=== PATIENT | female | born 1965 | race Caucasian/White ===

== ENCOUNTER 2017-10-29 14:47 | Outpatient (RCR) | payer BC, SELFPAY ==
[2017-10-29] MEDS: Normal Saline Flush 10 ML SYR IVP (13:00)
[2017-10-29 13:48] LABS: Abs Immature Grans 0.01 k/cumm (0.0-0.09); Absolute Basophil Count 0.11 k/cumm (0.0-0.2); Absolute Eosinophil Count 0.36 k/cumm (0.0-0.7); Absolute Lymphocyte Count 2.01 k/cumm (1.2-3.4); Absolute Monocyte Count 0.57 k/cumm (0.11-0.7); Absolute Neutrophil Count 4.76 k/cumm (1.2-6.7); Basophils % 1.4; Eosinophils % 4.6; HCT 35.9 % (36.0-46.0); HGB 11.6 g/dL (12.0-15.5); Immature Grans % 0.1; Lymphocytes % 25.7; Mean Corp. HGB Concentration 32.3 g/dL (32.0-36.0); Mean Corpuscular Hemoglobin 28.4 pg (27.0-33.0); Mean Platelet Volume 11.4 fL (8.0-11.0); Monocytes % 7.3; Neutrophils % 60.9; Platelet Count 293 x1000/uL (130-400); RBC 4.08 m/cumm (4.00-5.20); RBC Distribution Width 14.9 % (11.7-14.6); White Blood Cell Count 7.82 k/cumm (4.4-10.8)
[2017-10-29 14:01] LABS: Triglyceride 65 mg/dL (30-150)
[2017-10-29 14:10] LABS: ALT 32 U/L (12-78); AST 22 U/L (15-37); Albumin 2.8 g/dL (3.4-5.0); Alkaline Phosphatase 136 U/L (46-116); Anion Gap 10.3 mmol/L (3-11); BUN 16 mg/dL (7-18); Bilirubin, Total 0.3 mg/dL (0.2-1.0); CO2 24.7 mmol/L (21.0-32.0); CREATININE 0.58 mg/dL (0.55-1.02); Calcium 8.3 mg/dL (8.5-10.1); Chloride 106 mmol/L (98-107); Glucose 91 mg/dL (70-100); PHOSPHORUS 2.5 mg/dL (2.6-4.7); Potassium 3.7 mmol/L (3.5-5.1); Sodium 141 mmol/L (136-145); Total Protein 6.8 g/dL (6.4-8.2)
[2017-10-30 10:00] LABS: Prealbumin 13 mg/dL (20-40)
[2017-10-31 14:46] LABS: Magnesium 2.5 mg/dL (1.8-2.4)
[2017-11-05] MEDS: Normal Saline Flush 10 ML SYR IVP (13:00)
[2017-11-12] MEDS: Normal Saline Flush 10 ML SYR IVP (13:00)
[2017-11-12 13:29] LABS: Abs Immature Grans 0.01 k/cumm (0.0-0.09); Absolute Eosinophil Count 0.36 k/cumm (0.0-0.7); Absolute Monocyte Count 0.49 k/cumm (0.11-0.7); Absolute Neutrophil Count 4.35 k/cumm (1.2-6.7); Basophils % 1.3; Eosinophils % 4.8; HCT 35.5 % (36.0-46.0); HGB 11.4 g/dL (12.0-15.5); Immature Grans % 0.1; Lymphocytes % 29.3; Mean Corp. HGB Concentration 32.1 g/dL (32.0-36.0); Mean Corpuscular Hemoglobin 28.6 pg (27.0-33.0); Mean Corpuscular Volume 89.2 fL (80-95); Mean Platelet Volume 11.4 fL (8.0-11.0); Monocytes % 6.5; Platelet Count 318 x1000/uL (130-400); RBC 3.98 m/cumm (4.00-5.20); White Blood Cell Count 7.51 k/cumm (4.4-10.8)
[2017-11-12 13:54] LABS: ALT 49 U/L (12-78); AST 32 U/L (15-37); Albumin 2.9 g/dL (3.4-5.0); Alkaline Phosphatase 139 U/L (46-116); Anion Gap 12.1 mmol/L (3-11); BUN 23 mg/dL (7-18); Bilirubin, Total 0.4 mg/dL (0.2-1.0); CO2 22.9 mmol/L (21.0-32.0); CREATININE 0.75 mg/dL (0.55-1.02); Calcium 8.3 mg/dL (8.5-10.1); Chloride 106 mmol/L (98-107); Glucose 127 mg/dL (70-100); Magnesium 1.9 mg/dL (1.8-2.4); Potassium 3.7 mmol/L (3.5-5.1); Sodium 141 mmol/L (136-145); Triglyceride 56 mg/dL (30-150)
[2017-11-12 14:03] LABS: PHOSPHORUS 2.9 mg/dL (2.6-4.7)
[2017-11-13 10:28] LABS: Prealbumin 16 mg/dL (20-40)
[2017-11-18] MEDS: Normal Saline Flush 10 ML SYR IVP (13:25)
== END 2017-11-22 ==
LOC: INF 14:47
PROVIDERS: PCP Family Medicine; Visit Provider Surgery
DX: K91.2 Postsurgical malabsorption, not elsewhere classified (principal); Z45.2 Encounter for adjustment and management of vascular access device; Z48.00 Encounter for change or removal of nonsurgical wound dressing
CPT/HCPCS: 36592; 80053; 99211; 83735; 84100; 84134; 84478; 85025

== ENCOUNTER 2017-11-04 19:34 | Emergency (ER) | payer BC, SELFPAY ==
[2017-11-04] VITALS (11 sets, daily range): BP systolic 106–125; BP diastolic 77–98; PULSE 74–96; RESP 4–22; TEMP 36.7; O2SAT 92–95
--- NOTE | 2017-11-04 20:34 | ED.GENADUL ---
Disposition Clinical Impression: Upper respiratory infection, Asthma exacerbation Disposition: HOME Condition: Fair Instructions: Upper Respiratory Infection (ED), Asthma (ED) Additional Instructions: Continue to follow dietary restrictions as previously advised by GI. Continue Imodium as advised by gastroenterology. Use your nebulizer as needed for asthma symptoms. The cultures are pending. Will contact you with any positive results. Please contact your primary care tomorrow to schedule follow-up this week for reevaluation. If you develop fevers, chills, chest pain, difficulty breathing or other new/worsening symptoms please seek care urgently once again. Referrals: Robbie Philippe [Primary Care Provider] - Medical Decision Making - Lab Data Laboratory Tests 11/04/17 11/04/17 11/04/17 21:15 21:15 21:15 WBC 10.78 RBC 4.17 Hgb 12.1 Hct 36.7 MCV 88.0 MCH 29.0 MCHC 33.0 RDW 15.1 H Plt Count 307 MPV 11.3 H Immature Gran % 0.3 Neutrophils % 66.7 Lymphocytes % 21.2 Monocytes % 7.7 Eosinophils % 3.5 Basophils % 0.6 Absolute Neutrophils 7.19 H Absolute Lymphocytes 2.29 Absolute Monocytes 0.83 H Absolute Eosinophils 0.38 Absolute Basophils 0.06 Sodium 142 Potassium 3.6 Chloride 106 Carbon Dioxide 26.2 Anion Gap 9.8 BUN 21 H Creatinine 0.71 Estimated GFR/1.73 m2 >= 60.00 Glucose 85 Calcium 8.7 Magnesium 1.6 L Total Bilirubin 0.3 AST 32 ALT 46 Alkaline Phosphatase 155 H Troponin I < 0.02 NT-Pro-B Natriuret Pep 151 Total Protein 7.4 Albumin 3.2 L Lipase 83 Results reviewed for labs ordered during visit: Yes - Medical Decision Making Patient presents today with chief complaint of fevers, general unwell feeling asthma exacerbation as well as underlying cough. She is questioning she may just have a simple cold. However, as she has been feeling poor, has had subjective fevers with sweats/chills, there was concern for PICC line infection. Will obtain basic laboratory evaluation as well as cultures, 1 of which will be taken from the PICC line. Will also give patient breathing treatment she does have diffuse expiratory wheezing. Plan to obtain chest x-ray to evaluate for possible pneumonia. We will obtain laboratory evaluation including CBC, CMP, troponin, blood cultures. 1 of these blood cultures will be drawn from the PICC line. Patient voiced understanding the plan is agreement. Patient appears nontoxic. Patient is currently afebrile. EKG obtained and reviewed by Dr. Walker. Patient is in normal sinus rhythm with a rate of 79. No acute ischemic changes noted. Patient received a DuoNeb. Lungs are reassessed, no wheezing is appreciated at this time. Feels much improved. Laboratory evaluation without significant abnormality. No leukocytosis. Her alk phos is elevated but this is typical for the patient on historical review. Troponin is normal. EKG was reviewed by Dr. Walker and found to be without abnormality. I discussed these findings with the patient. She continues to be afebrile and appears nontoxic. She is wanting to be discharged home. Chest x-ray is still pending but patient is requesting discharge does not want to have further imaging at this time. We did discuss that we may be missing a pneumonia that may be contributing to her cough and asthma exacerbation. However, patient continues to advise that she does not want to go forward with further imaging at this time. I discussed the case with Dr. Walker. In particular, we discussed risk and benefit of removal of the PICC line given the patient's subjective fevers. At this point, with normal leukocytosis, patient currently being afebrile and nontoxic-appearing he advised against removal of the PICC. He advised watchful waiting. Patient seems very reliable and is able to seek care urgently if she develops new or worsening symptoms. Cultures are currently pending. We will contact her with any positive results. Advised to follow-up with primary care this week. She will contact her primary care tomorrow morning. She will continue with home nebulizer treatments as needed for asthma. We discussed new/worsening symptoms in depth and when to seek care urgently once again. All of her questions and concerns were addressed she is in agreement this plan. History of Present Illness - General Chief complaint: GenMedical Stated complaint: UNKNOWN Time Seen by Provider: 11/04/17 19:54 Source: patient, family, RN notes reviewed Mode of arrival: ambulatory Limitations: no limitations - History of Present Illness Initial comments: Patient is a 52-year-old female with history of short gut syndrome, accompanied by , with chief complaint of diarrhea, chest tightness and fever. She reports that symptoms began last night. Reports overall she is just been feeling unwell. Patient does have history of asthma and has been feeling tight and wheezy. She denies any chest pain. Denies difficulty breathing. Feels that asthma symptoms are fairly minimal. She does endorse a cough. Denies any abdominal pain. Patient did have a large section of intestines resected approximately 1 year ago after patient developed necrotic area. Since that time she has had waxing and waning diarrhea. Reports that she has had multiple episodes of watery diarrhea to be a. She denies any blood in her stool. Patient has a PICC line in place which he uses for nightly TPN. Reports that she had the PICC line changed recently. In total, has been on TPN for the past year. She does report that she lost the cap for her PICC line over the weekend and came off of sleeping. She did contact her chief of planning regarding his symptoms and reports that there was concern for possible PICC line infection. Has noted subjective fevers with alternating sweats and chills. - Related Data Fluticasone/Salmeterol [Advair 250-50 Diskus] 1 puff IN BID 03/04/17 Levothyroxine [Levothroid] 2 tab PO DAILY AM 03/04/17 Loperamide [Imodium] 6 mg PO PRN PRN 11/04/17 Pantoprazole [Protonix] 20 mg PO BID 11/04/17 Prochlorperazine Maleate 1 tab PO DAILY 11/04/17 Allergies Allergy/AdvReac Type Severity Reaction Status Date / Time amoxicillin Allergy Hives Unverified 03/04/17 16:32 adhesive tape AdvReac Skin Rash Unverified 03/04/17 16:32 codeine AdvReac Nausea Unverified 03/04/17 16:32 exenatide [From Byetta] AdvReac Unverified 03/04/17 17:23 morphine AdvReac Nausea Unverified 03/04/17 16:32 Review of Systems Constitutional: see HPI Respiratory: see HPI Cardiovascular: denies: chest pain, palpitations Gastrointestinal: as per HPI Genitourinary: denies: urgency, dysuria, frequency Musculoskeletal: denies: back pain Skin: denies: rash, lesions Past Medical History - Past Medical History asthma, hypertension, hypothryoid, short gut syndrome. Surgical history: other (bowel resection. appendectomy, hernia repair, cholecystectomy, hysterectomy.) - Social History Alcohol use: rarely Drug use: none General Exam - General Limitations: no limitations General appearance: alert, in no apparent distress - Eye Eye exam: Present: normal apperance - Respiratory Respiratory exam: Present: wheezes (Diffuse expiratory wheeze on exam). Absent: normal lung sounds bilaterally, respiratory distress, rales, rhonchi, stridor - Cardiovascular Cardiovascular Exam: Present: regular rate, normal rhythm, normal heart sounds - GI/Abdominal GI/Abdominal exam: Present: soft, normal bowel sounds, other (Patient has a large inferior incision. Is notable no signs of infection). Absent: distended, tenderness, guarding, rebound - Rectal Rectal exam: Present: deferred - Extremities Exam Extremities exam: Present: normal inspection - Back Exam Back exam: Present: normal inspection. Absent: tenderness - Neurological Exam Neurological exam: Present: alert, normal gait - Psychiatric Psychiatric exam: Present: normal affect, normal mood - Skin Skin exam: Present: warm, dry, normal color Course Vital Signs - 24 hr 11/04/17 11/04/17 19:37 20:07 Temperature 36.7 C Pulse 96 H Respiratory 18 18 Rate Blood Pressure 106/85 Pulse Oximetry 93 L
--- NOTE | 2017-11-04 20:43 | ED.GENADUL_ITS ---
Disposition Clinical Impression: Upper respiratory infection, Asthma exacerbation Disposition: HOME Condition: Fair Instructions: Upper Respiratory Infection (ED), Asthma (ED) Additional Instructions: Continue to follow dietary restrictions as previously advised by GI. Continue Imodium as advised by gastroenterology. Use your nebulizer as needed for asthma symptoms. The cultures are pending. Will contact you with any positive results. Please contact your primary care tomorrow to schedule follow-up this week for reevaluation. If you develop fevers, chills, chest pain, difficulty breathing or other new/worsening symptoms please seek care urgently once again. Referrals: Robbie Philippe [Primary Care Provider] - Medical Decision Making - Lab Data Laboratory Tests 11/04/17 11/04/17 11/04/17 21:15 21:15 21:15 WBC 10.78 RBC 4.17 Hgb 12.1 Hct 36.7 MCV 88.0 MCH 29.0 MCHC 33.0 RDW 15.1 H Plt Count 307 MPV 11.3 H Immature Gran % 0.3 Neutrophils % 66.7 Lymphocytes % 21.2 Monocytes % 7.7 Eosinophils % 3.5 Basophils % 0.6 Absolute Neutrophils 7.19 H Absolute Lymphocytes 2.29 Absolute Monocytes 0.83 H Absolute Eosinophils 0.38 Absolute Basophils 0.06 Sodium 142 Potassium 3.6 Chloride 106 Carbon Dioxide 26.2 Anion Gap 9.8 BUN 21 H Creatinine 0.71 Estimated GFR/1.73 m2 >= 60.00 Glucose 85 Calcium 8.7 Magnesium 1.6 L Total Bilirubin 0.3 AST 32 ALT 46 Alkaline Phosphatase 155 H Troponin I < 0.02 NT-Pro-B Natriuret Pep 151 Total Protein 7.4 Albumin 3.2 L Lipase 83 Results reviewed for labs ordered during visit: Yes - Medical Decision Making Patient presents today with chief complaint of fevers, general unwell feeling asthma exacerbation as well as underlying cough. She is questioning she may just have a simple cold. However, as she has been feeling poor, has had subjective fevers with sweats/chills, there was concern for PICC line infection. Will obtain basic laboratory evaluation as well as cultures, 1 of which will be taken from the PICC line. Will also give patient breathing treatment she does have diffuse expiratory wheezing. Plan to obtain chest x- ray to evaluate for possible pneumonia. We will obtain laboratory evaluation including CBC, CMP, troponin, blood cultures. 1 of these blood cultures will be drawn from the PICC line. Patient voiced understanding the plan is agreement. Patient appears nontoxic. Patient is currently afebrile. EKG obtained and reviewed by Dr. Walker. Patient is in normal sinus rhythm with a rate of 79. No acute ischemic changes noted. Patient received a DuoNeb. Lungs are reassessed, no wheezing is appreciated at this time. Feels much improved. Laboratory evaluation without significant abnormality. No leukocytosis. Her alk phos is elevated but this is typical for the patient on historical review. Troponin is normal. EKG was reviewed by Dr. Walker and found to be without abnormality. I discussed these findings with the patient. She continues to be afebrile and appears nontoxic. She is wanting to be discharged home. Chest x- ray is still pending but patient is requesting discharge does not want to have further imaging at this time. We did discuss that we may be missing a pneumonia that may be contributing to her cough and asthma exacerbation. However, patient continues to advise that she does not want to go forward with further imaging at this time. I discussed the case with Dr. Walker. In particular, we discussed risk and benefit of removal of the PICC line given the patient's subjective fevers. At this point, with normal leukocytosis, patient currently being afebrile and nontoxic-appearing he advised against removal of the PICC. He advised watchful waiting. Patient seems very reliable and is able to seek care urgently if she develops new or worsening symptoms. Cultures are currently pending. We will contact her with any positive results. Advised to follow-up with primary care this week. She will contact her primary care tomorrow morning. She will continue with home nebulizer treatments as needed for asthma. We discussed new/ worsening symptoms in depth and when to seek care urgently once again. All of her questions and concerns were addressed she is in agreement this plan. History of Present Illness - General Chief complaint: GenMedical Stated complaint: UNKNOWN Time Seen by Provider: 11/04/17 19:54 Source: patient, family, RN notes reviewed Mode of arrival: ambulatory Limitations: no limitations - History of Present Illness Initial comments: Patient is a 52-year-old female with history of short gut syndrome, accompanied by , with chief complaint of diarrhea, chest tightness and fever. She reports that symptoms began last night. Reports overall she is just been feeling unwell. Patient does have history of asthma and has been feeling tight and wheezy. She denies any chest pain. Denies difficulty breathing. Feels that asthma symptoms are fairly minimal. She does endorse a cough. Denies any abdominal pain. Patient did have a large section of intestines resected approximately 1 year ago after patient developed necrotic area. Since that time she has had waxing and waning diarrhea. Reports that she has had multiple episodes of watery diarrhea to be a. She denies any blood in her stool. Patient has a PICC line in place which he uses for nightly TPN. Reports that she had the PICC line changed recently. In total, has been on TPN for the past year. She does report that she lost the cap for her PICC line over the weekend and came off of sleeping. 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 Has noted subjective fevers with alternating sweats and chills. - Related Data Fluticasone/Salmeterol [Advair 250-50 Diskus] 1 puff IN BID 03/04/17 Levothyroxine [Levothroid] 2 tab PO DAILY AM 03/04/17 Loperamide [Imodium] 6 mg PO PRN PRN 11/04/17 Pantoprazole [Protonix] 20 mg PO BID 11/04/17 Prochlorperazine Maleate 1 tab PO DAILY 11/04/17 Allergies Allergy/AdvReac Type Severity Reaction Status Date / Time amoxicillin Allergy Hives Unverified 03/04/17 16:32 adhesive tape AdvReac Skin Rash Unverified 03/04/17 16:32 codeine AdvReac Nausea Unverified 03/04/17 16:32 exenatide [From Byetta] AdvReac Unverified 03/04/17 17:23 morphine AdvReac Nausea Unverified 03/04/17 16:32 Review of Systems Constitutional: see HPI Respiratory: see HPI Cardiovascular: denies: chest pain, palpitations Gastrointestinal: as per HPI Genitourinary: denies: urgency, dysuria, frequency Musculoskeletal: denies: back pain Skin: denies: rash, lesions Past Medical History - Past Medical History asthma, hypertension, hypothryoid, short gut syndrome. Surgical history: other (bowel resection. appendectomy, hernia repair, cholecystectomy, hysterectomy.) - Social History Alcohol use: rarely Drug use: none General Exam - General Limitations: no limitations General appearance: alert, in no apparent distress - Eye Eye exam: Present: normal apperance - Respiratory Respiratory exam: Present: wheezes (Diffuse expiratory wheeze on exam). Absent : normal lung sounds bilaterally, respiratory distress, rales, rhonchi, stridor - Cardiovascular Cardiovascular Exam: Present: regular rate, normal rhythm, normal heart sounds - GI/Abdominal GI/Abdominal exam: Present: soft, normal bowel sounds, other (Patient has a large inferior incision. Is notable no signs of infection). Absent: distended , tenderness, guarding, rebound - Rectal Rectal exam: Present: deferred - Extremities Exam Extremities exam: Present: normal inspection - Back Exam Back exam: Present: normal inspection. Absent: tenderness - Neurological Exam Neurological exam: Present: alert, normal gait - Psychiatric Psychiatric exam: Present: normal affect, normal mood - Skin Skin exam: Present: warm, dry, normal color Course Vital Signs - 24 hr 11/04/17 11/04/17 19:37 20:07 Temperature 36.7 C Pulse 96 H Respiratory 18 18 Rate Blood Pressure 106/85 Pulse Oximetry 93 L
[2017-11-04] MEDS: Albuterol/Ipratropium 3 ML UPD VIAL UPD (21:15)
[2017-11-04] MEDS: Normal Saline 1,000 ML 1000 ML IV (21:37)
[2017-11-04 21:40] LABS: Abs Immature Grans 0.03 k/cumm (0.0-0.09); Absolute Basophil Count 0.06 k/cumm (0.0-0.2); Absolute Eosinophil Count 0.38 k/cumm (0.0-0.7); Absolute Lymphocyte Count 2.29 k/cumm (1.2-3.4); Absolute Monocyte Count 0.83 k/cumm (0.11-0.7); Absolute Neutrophil Count 7.19 k/cumm (1.2-6.7); Basophils % 0.6; Eosinophils % 3.5; HCT 36.7 % (36.0-46.0); HGB 12.1 g/dL (12.0-15.5); Immature Grans % 0.3; Lymphocytes % 21.2; Mean Platelet Volume 11.3 fL (8.0-11.0); Monocytes % 7.7; Neutrophils % 66.7; Platelet Count 307 x1000/uL (130-400); RBC 4.17 m/cumm (4.00-5.20); RBC Distribution Width 15.1 % (11.7-14.6); White Blood Cell Count 10.78 k/cumm (4.4-10.8)
[2017-11-04 21:56] LABS: Lipase 83 U/L (73-393)
[2017-11-04 22:05] LABS: ALT 46 U/L (12-78); AST 32 U/L (15-37); Albumin 3.2 g/dL (3.4-5.0); Alkaline Phosphatase 155 U/L (46-116); Anion Gap 9.8 mmol/L (3-11); BUN 21 mg/dL (7-18); Bilirubin, Total 0.3 mg/dL (0.2-1.0); CO2 26.2 mmol/L (21.0-32.0); CREATININE 0.71 mg/dL (0.55-1.02); Calcium 8.7 mg/dL (8.5-10.1); Chloride 106 mmol/L (98-107); Glucose 85 mg/dL (70-100); Magnesium 1.6 mg/dL (1.8-2.4); NT-proBNP 151 pg/mL; Potassium 3.6 mmol/L (3.5-5.1); Sodium 142 mmol/L (136-145); Total Protein 7.4 g/dL (6.4-8.2); Troponin I < 0.02 ng/mL (0.00-0.06)
== END 2017-11-04 22:30 | disposition home or self-care (01) ==
PROVIDERS: Physician Assistant; Emergency Provider Emergency Medicine; PCP Family Medicine
DX: J06.9 Acute upper respiratory infection, unspecified (principal); J45.901 Unspecified asthma with (acute) exacerbation; Z95.9 Presence of cardiac and vascular implant and graft, unspecified; I10 Essential (primary) hypertension
CPT/HCPCS: 36415; 80053; 83690; 87040; 93005; 94640; 96360; 99285; 83735; 83880; 84484; 85025; 93010; 99284; J7620

== ENCOUNTER 2017-12-16 00:53 | Outpatient (RCR) | payer BC, SELFPAY ==
[2017-12-09 11:42] LABS: Abs Immature Grans 0.01 k/cumm (0.0-0.09); Absolute Basophil Count 0.09 k/cumm (0.0-0.2); Absolute Eosinophil Count 0.18 k/cumm (0.0-0.7); Absolute Lymphocyte Count 1.59 k/cumm (1.2-3.4); Absolute Monocyte Count 0.41 k/cumm (0.11-0.7); Absolute Neutrophil Count 5.29 k/cumm (1.2-6.7); Basophils % 1.2; Eosinophils % 2.4; HGB 11.5 g/dL (12.0-15.5); Immature Grans % 0.1; Mean Corp. HGB Concentration 32.9 g/dL (32.0-36.0); Mean Corpuscular Hemoglobin 29.5 pg (27.0-33.0); Mean Corpuscular Volume 89.7 fL (80-95); Monocytes % 5.4; Neutrophils % 69.9; Platelet Count 264 x1000/uL (130-400); RBC Distribution Width 14.7 % (11.7-14.6); White Blood Cell Count 7.57 k/cumm (4.4-10.8)
[2017-12-09 12:00] LABS: ALT 41 U/L (12-78); AST 34 U/L (15-37); Albumin 2.6 g/dL (3.4-5.0); Alkaline Phosphatase 149 U/L (46-116); Anion Gap 10.4 mmol/L (3-11); BUN 12 mg/dL (7-18); Bilirubin, Total 0.4 mg/dL (0.2-1.0); CO2 23.6 mmol/L (21.0-32.0); CREATININE 0.67 mg/dL (0.55-1.02); Calcium 7.5 mg/dL (8.5-10.1); Chloride 109 mmol/L (98-107); Glucose 105 mg/dL (70-100); Potassium 3.1 mmol/L (3.5-5.1); Sodium 143 mmol/L (136-145); Total Protein 6.4 g/dL (6.4-8.2); Triglyceride 62 mg/dL (30-150)
[2017-12-09 12:13] LABS: PHOSPHORUS 3.4 mg/dL (2.6-4.7)
[2017-12-10 10:18] LABS: Prealbumin 11 mg/dL (20-40)
[2017-12-11] MEDS: Normal Saline Flush 10 ML SYR IVP (10:14)
[2017-12-11] MEDS: POTASSIUM CHLORIDE/0.9% NACL 1,000 ML 500 MEQ IV (10:14)
[2017-12-11] MEDS: MAGNESIUM SULFATE 1 GM/100 ML BAG IVPB (13:35)
[2017-12-16] MEDS: Normal Saline Flush 10 ML SYR IVP (13:05)
[2017-12-16 13:27] LABS: Abs Immature Grans 0.01 k/cumm (0.0-0.09); Absolute Basophil Count 0.11 k/cumm (0.0-0.2); Absolute Eosinophil Count 0.19 k/cumm (0.0-0.7); Absolute Lymphocyte Count 2.22 k/cumm (1.2-3.4); Absolute Monocyte Count 0.63 k/cumm (0.11-0.7); Absolute Neutrophil Count 6.97 k/cumm (1.2-6.7); Basophils % 1.1; Eosinophils % 1.9; HCT 34.1 % (36.0-46.0); HGB 11.1 g/dL (12.0-15.5); Immature Grans % 0.1; Lymphocytes % 21.9; Mean Corp. HGB Concentration 32.6 g/dL (32.0-36.0); Mean Corpuscular Hemoglobin 29.5 pg (27.0-33.0); Mean Corpuscular Volume 90.7 fL (80-95); Mean Platelet Volume 11.5 fL (8.0-11.0); Monocytes % 6.2; Neutrophils % 68.8; Platelet Count 287 x1000/uL (130-400); RBC 3.76 m/cumm (4.00-5.20); RBC Distribution Width 15.5 % (11.7-14.6); White Blood Cell Count 10.13 k/cumm (4.4-10.8)
[2017-12-16 13:41] LABS: ALT 34 U/L (12-78); AST 30 U/L (15-37); Albumin 2.5 g/dL (3.4-5.0); Alkaline Phosphatase 146 U/L (46-116); Anion Gap 11.9 mmol/L (3-11); BUN 16 mg/dL (7-18); Bilirubin, Total 0.3 mg/dL (0.2-1.0); CO2 23.1 mmol/L (21.0-32.0); CREATININE 0.71 mg/dL (0.55-1.02); Calcium 7.7 mg/dL (8.5-10.1); Chloride 108 mmol/L (98-107); Glucose 94 mg/dL (70-100); Magnesium 1.2 mg/dL (1.8-2.4); Sodium 143 mmol/L (136-145); Total Protein 6.1 g/dL (6.4-8.2); Triglyceride 73 mg/dL (30-150)
[2017-12-16 13:52] LABS: PHOSPHORUS 3.5 mg/dL (2.6-4.7)
[2017-12-17 10:19] LABS: Prealbumin 7 mg/dL (20-40)
== END 2017-12-22 23:59 | disposition home or self-care (01) ==
LOC: INF 00:53
PROVIDERS: PCP Family Medicine; Visit Provider Surgery
DX: K91.2 Postsurgical malabsorption, not elsewhere classified (principal); E87.5 Hyperkalemia; Z45.2 Encounter for adjustment and management of vascular access device
CPT/HCPCS: 36592; 80053; 96365; 96366; 83735; 84100; 84134; 84478; 85025; J3475

== ENCOUNTER 2017-12-19 01:39 | Outpatient (RCR) | payer BC, SELFPAY ==
[2017-11-26] MEDS: Normal Saline Flush 10 ML SYR IVP (10:45)
[2017-11-26 11:30] LABS: Abs Immature Grans 0.01 k/cumm (0.0-0.09); Absolute Eosinophil Count 0.22 k/cumm (0.0-0.7); Absolute Monocyte Count 0.64 k/cumm (0.11-0.7); Absolute Neutrophil Count 6.22 k/cumm (1.2-6.7); Basophils % 1.1; Eosinophils % 2.5; HCT 34.7 % (36.0-46.0); HGB 11.7 g/dL (12.0-15.5); Immature Grans % 0.1; Lymphocytes % 19.1; Mean Corp. HGB Concentration 33.7 g/dL (32.0-36.0); Monocytes % 7.2; Platelet Count 329 x1000/uL (130-400); RBC Distribution Width 14.9 % (11.7-14.6); White Blood Cell Count 8.89 k/cumm (4.4-10.8)
[2017-11-26 11:46] LABS: ALT 29 U/L (12-78); AST 20 U/L (15-37); Albumin 2.9 g/dL (3.4-5.0); Alkaline Phosphatase 134 U/L (46-116); Anion Gap 8.4 mmol/L (3-11); BUN 15 mg/dL (7-18); Bilirubin, Total 0.5 mg/dL (0.2-1.0); CO2 23.6 mmol/L (21.0-32.0); CREATININE 0.67 mg/dL (0.55-1.02); Calcium 8.1 mg/dL (8.5-10.1); Chloride 107 mmol/L (98-107); Glucose 87 mg/dL (70-100); Magnesium 1.2 mg/dL (1.8-2.4); PHOSPHORUS 3.3 mg/dL (2.6-4.7); Sodium 139 mmol/L (136-145); Total Protein 6.7 g/dL (6.4-8.2)
[2017-11-26 11:57] LABS: Potassium 2.5 mmol/L (3.5-5.1)
[2017-11-26 12:07] LABS: Triglyceride 69 mg/dL (30-150)
[2017-11-27 10:23] LABS: Prealbumin 10 mg/dL (20-40)
[2017-11-27 11:19] VITALS: BP 112/67; PULSE 57; RESP 18; TEMP 36.5
[2017-11-27] MEDS: POTASSIUM CHLORIDE/0.9% NACL 1,000 ML 500 MEQ IV (12:46)
[2017-11-28 11:36] LABS: ALT 25 U/L (12-78); AST 20 U/L (15-37); Albumin 2.7 g/dL (3.4-5.0); Alkaline Phosphatase 129 U/L (46-116); Anion Gap 5.2 mmol/L (3-11); BUN 8 mg/dL (7-18); Bilirubin, Total 0.3 mg/dL (0.2-1.0); CO2 24.8 mmol/L (21.0-32.0); CREATININE 0.72 mg/dL (0.55-1.02); Calcium 7.9 mg/dL (8.5-10.1); Chloride 109 mmol/L (98-107); Glucose 94 mg/dL (70-100); Magnesium 1.5 mg/dL (1.8-2.4); Potassium 3.5 mmol/L (3.5-5.1); Sodium 139 mmol/L (136-145); Total Protein 6.2 g/dL (6.4-8.2)
[2017-11-28] MEDS: Normal Saline Flush 10 ML SYR IVP (12:00)
[2017-12-02] MEDS: Normal Saline Flush 10 ML SYR IVP (12:05)
[2017-12-02 12:29] LABS: Abs Immature Grans 0.01 k/cumm (0.0-0.09); Absolute Basophil Count 0.16 k/cumm (0.0-0.2); Absolute Eosinophil Count 0.22 k/cumm (0.0-0.7); Absolute Lymphocyte Count 1.99 k/cumm (1.2-3.4); Absolute Monocyte Count 0.55 k/cumm (0.11-0.7); Absolute Neutrophil Count 4.73 k/cumm (1.2-6.7); Basophils % 2.1; Eosinophils % 2.9; HCT 33.5 % (36.0-46.0); HGB 10.9 g/dL (12.0-15.5); Immature Grans % 0.1; Mean Corp. HGB Concentration 32.5 g/dL (32.0-36.0); Mean Corpuscular Hemoglobin 29.5 pg (27.0-33.0); Mean Corpuscular Volume 90.8 fL (80-95); Mean Platelet Volume 11.3 fL (8.0-11.0); Monocytes % 7.2; Neutrophils % 61.7; Platelet Count 306 x1000/uL (130-400); RBC 3.69 m/cumm (4.00-5.20); RBC Distribution Width 15.2 % (11.7-14.6); White Blood Cell Count 7.66 k/cumm (4.4-10.8)
[2017-12-02 12:42] LABS: ALT 22 U/L (12-78); AST 20 U/L (15-37); Albumin 2.5 g/dL (3.4-5.0); Alkaline Phosphatase 131 U/L (46-116); Anion Gap 8.5 mmol/L (3-11); BUN 13 mg/dL (7-18); Bilirubin, Total 0.3 mg/dL (0.2-1.0); CO2 25.5 mmol/L (21.0-32.0); Calcium 7.9 mg/dL (8.5-10.1); Chloride 107 mmol/L (98-107); Glucose 113 mg/dL (70-100); Magnesium 1.3 mg/dL (1.8-2.4); PHOSPHORUS 3.8 mg/dL (2.6-4.7); Potassium 3.3 mmol/L (3.5-5.1); Sodium 141 mmol/L (136-145); Total Protein 6.1 g/dL (6.4-8.2)
[2017-12-02 12:59] LABS: Triglyceride 48 mg/dL (30-150)
[2017-12-03 09:33] LABS: Prealbumin 8 mg/dL (20-40)
[2017-12-16] MEDS: Normal Saline Flush 10 ML SYR IVP (13:10)
[2017-12-18] MEDS: POTASSIUM CHLORIDE/0.9% NACL 1,000 ML 250 MEQ IV (10:30)
[2017-12-18] MEDS: Normal Saline Flush 10 ML SYR IVP (11:04)
[2017-12-19 09:08] LABS: Abs Immature Grans 0.01 k/cumm (0.0-0.09); Absolute Basophil Count 0.09 k/cumm (0.0-0.2); Absolute Monocyte Count 0.65 k/cumm (0.11-0.7); Absolute Neutrophil Count 6.65 k/cumm (1.2-6.7); Basophils % 0.9; Eosinophils % 3.1; HCT 33.8 % (36.0-46.0); Immature Grans % 0.1; Lymphocytes % 20.6; Mean Corp. HGB Concentration 32.5 g/dL (32.0-36.0); Mean Corpuscular Hemoglobin 29.7 pg (27.0-33.0); Mean Corpuscular Volume 91.4 fL (80-95); Mean Platelet Volume 11.7 fL (8.0-11.0); Monocytes % 6.7; Neutrophils % 68.6; Platelet Count 287 x1000/uL (130-400); RBC Distribution Width 15.8 % (11.7-14.6)
[2017-12-19 09:23] LABS: ALT 34 U/L (12-78); AST 36 U/L (15-37); Albumin 2.4 g/dL (3.4-5.0); Alkaline Phosphatase 138 U/L (46-116); BUN 8 mg/dL (7-18); Bilirubin, Total 0.3 mg/dL (0.2-1.0); CREATININE 0.63 mg/dL (0.55-1.02); Calcium 7.6 mg/dL (8.5-10.1); Chloride 108 mmol/L (98-107); Glucose 105 mg/dL (70-100); Magnesium 1.8 mg/dL (1.8-2.4); Potassium 3.4 mmol/L (3.5-5.1); Sodium 141 mmol/L (136-145); Total Protein 5.9 g/dL (6.4-8.2); Triglyceride 66 mg/dL (30-150)
[2017-12-19] MEDS: POTASSIUM CHLORIDE/0.9% NACL 1,000 ML 475 MEQ IV (09:51)
[2017-12-19] MEDS: Normal Saline Flush 10 ML SYR IVP (09:51)
[2017-12-19 14:36] LABS: PHOSPHORUS 2.4 mg/dL (2.6-4.7)
[2017-12-20 09:24] LABS: Prealbumin 11 mg/dL (20-40)
== END 2017-12-22 23:59 | disposition home or self-care (01) ==
LOC: INF 01:39
PROVIDERS: Internal Medicine Gastroenterology; Surgery; Visit Provider Family Medicine
DX: K91.2 Postsurgical malabsorption, not elsewhere classified (principal); E87.5 Hyperkalemia; Z45.2 Encounter for adjustment and management of vascular access device
CPT/HCPCS: 36592; 80053; 96365; 96366; 83735; 84100; 84134; 84478; 85025; J3475

== ENCOUNTER 2018-01-20 01:23 | Outpatient (RCR) | payer BC, SELFPAY ==
[2017-12-24] MEDS: Normal Saline Flush 10 ML SYR IVP (12:45)
[2017-12-30] MEDS: Normal Saline Flush 10 ML SYR IVP (09:05)
[2017-12-30 09:28] LABS: Abs Immature Grans 0.01 k/cumm (0.0-0.09); Absolute Lymphocyte Count 2.15 k/cumm (1.2-3.4); Absolute Monocyte Count 0.42 k/cumm (0.11-0.7); Absolute Neutrophil Count 4.63 k/cumm (1.2-6.7); Basophils % 1.3; Eosinophils % 3.9; HCT 33.6 % (36.0-46.0); HGB 10.9 g/dL (12.0-15.5); Immature Grans % 0.1; Lymphocytes % 28.3; Mean Corp. HGB Concentration 32.4 g/dL (32.0-36.0); Mean Corpuscular Hemoglobin 29.8 pg (27.0-33.0); Mean Corpuscular Volume 91.8 fL (80-95); Mean Platelet Volume 11.6 fL (8.0-11.0); Monocytes % 5.5; Neutrophils % 60.9; Platelet Count 276 x1000/uL (130-400); RBC 3.66 m/cumm (4.00-5.20); RBC Distribution Width 15.9 % (11.7-14.6); White Blood Cell Count 7.61 k/cumm (4.4-10.8)
[2017-12-30 09:37] LABS: ALT 42 U/L (12-78); AST 55 U/L (15-37); Albumin 2.3 g/dL (3.4-5.0); Alkaline Phosphatase 133 U/L (46-116); Anion Gap 6.8 mmol/L (3-11); BUN 13 mg/dL (7-18); Bilirubin, Total 0.3 mg/dL (0.2-1.0); CO2 24.2 mmol/L (21.0-32.0); CREATININE 0.68 mg/dL (0.55-1.02); Calcium 7.7 mg/dL (8.5-10.1); Chloride 108 mmol/L (98-107); Glucose 106 mg/dL (70-100); Magnesium 1.6 mg/dL (1.8-2.4); Potassium 3.3 mmol/L (3.5-5.1); Sodium 139 mmol/L (136-145); Total Protein 5.9 g/dL (6.4-8.2); Triglyceride 61 mg/dL (30-150)
[2017-12-30 09:47] LABS: PHOSPHORUS 3.2 mg/dL (2.6-4.7)
[2017-12-31 09:25] LABS: Prealbumin 14 mg/dL (20-40)
[2017-12-31] MEDS: POTASSIUM CHLORIDE/0.9% NACL 1,000 ML 475 MEQ IV (09:31)
[2017-12-31] MEDS: Normal Saline Flush 10 ML SYR IVP (09:33)
[2017-12-31] MEDS: MAGNESIUM SULFATE 2 GM/50 ML BAG IVPB (11:42)
[2018-01-06] MEDS: Normal Saline Flush 10 ML SYR IVP (12:35)
[2018-01-06 12:54] LABS: Abs Immature Grans 0.02 k/cumm (0.0-0.09); Absolute Basophil Count 0.06 k/cumm (0.0-0.2); Absolute Eosinophil Count 0.08 k/cumm (0.0-0.7); Absolute Lymphocyte Count 2.02 k/cumm (1.2-3.4); Absolute Monocyte Count 0.62 k/cumm (0.11-0.7); Absolute Neutrophil Count 7.47 k/cumm (1.2-6.7); Basophils % 0.6; Eosinophils % 0.8; HCT 34.7 % (36.0-46.0); HGB 11.5 g/dL (12.0-15.5); Immature Grans % 0.2; Lymphocytes % 19.7; Mean Corp. HGB Concentration 33.1 g/dL (32.0-36.0); Mean Corpuscular Hemoglobin 30.1 pg (27.0-33.0); Mean Corpuscular Volume 90.8 fL (80-95); Mean Platelet Volume 11.1 fL (8.0-11.0); Neutrophils % 72.7; Platelet Count 322 x1000/uL (130-400); RBC 3.82 m/cumm (4.00-5.20); RBC Distribution Width 16.1 % (11.7-14.6); White Blood Cell Count 10.27 k/cumm (4.4-10.8)
[2018-01-06 13:17] LABS: ALT 34 U/L (12-78); AST 38 U/L (15-37); Albumin 2.4 g/dL (3.4-5.0); Alkaline Phosphatase 124 U/L (46-116); Anion Gap 8.7 mmol/L (3-11); BUN 13 mg/dL (7-18); Bilirubin, Total 0.2 mg/dL (0.2-1.0); CO2 22.3 mmol/L (21.0-32.0); CREATININE 0.82 mg/dL (0.55-1.02); Calcium 7.9 mg/dL (8.5-10.1); Chloride 110 mmol/L (98-107); Glucose 96 mg/dL (70-100); Magnesium 1.9 mg/dL (1.8-2.4); Sodium 141 mmol/L (136-145); Triglyceride 66 mg/dL (30-150)
[2018-01-06 13:31] LABS: PHOSPHORUS 3.4 mg/dL (2.6-4.7)
[2018-01-07 11:11] LABS: Prealbumin 14 mg/dL (20-40)
[2018-01-13] MEDS: Normal Saline Flush 10 ML SYR IVP (12:40)
[2018-01-13 13:18] LABS: Abs Immature Grans 0.02 k/cumm (0.0-0.09); Absolute Eosinophil Count 0.13 k/cumm (0.0-0.7); Absolute Lymphocyte Count 2.29 k/cumm (1.2-3.4); Absolute Monocyte Count 0.67 k/cumm (0.11-0.7); Absolute Neutrophil Count 9.42 k/cumm (1.2-6.7); Basophils % 0.8; HCT 36.6 % (36.0-46.0); HGB 12.1 g/dL (12.0-15.5); Immature Grans % 0.2; Lymphocytes % 18.1; Mean Corp. HGB Concentration 33.1 g/dL (32.0-36.0); Mean Corpuscular Volume 90.8 fL (80-95); Mean Platelet Volume 11.2 fL (8.0-11.0); Monocytes % 5.3; Neutrophils % 74.6; Platelet Count 338 x1000/uL (130-400); RBC 4.03 m/cumm (4.00-5.20); RBC Distribution Width 15.7 % (11.7-14.6); White Blood Cell Count 12.63 k/cumm (4.4-10.8)
[2018-01-13 13:43] LABS: ALT 43 U/L (12-78); AST 42 U/L (15-37); Albumin 2.6 g/dL (3.4-5.0); Alkaline Phosphatase 117 U/L (46-116); Anion Gap 11.9 mmol/L (3-11); BUN 17 mg/dL (7-18); Bilirubin, Total 0.3 mg/dL (0.2-1.0); CO2 22.1 mmol/L (21.0-32.0); CREATININE 0.69 mg/dL (0.55-1.02); Calcium 8.2 mg/dL (8.5-10.1); Chloride 105 mmol/L (98-107); Glucose 85 mg/dL (70-100); Magnesium 1.7 mg/dL (1.8-2.4); PHOSPHORUS 4.1 mg/dL (2.6-4.7); Potassium 4.1 mmol/L (3.5-5.1); Sodium 139 mmol/L (136-145); TSH 1.14 uIU/mL (0.358-3.74); Total Protein 6.4 g/dL (6.4-8.2)
[2018-01-13 14:16] LABS: Iron 47 ug/dL (50-175)
[2018-01-13 14:21] LABS: Ferritin 319 ng/mL (8-388); Triglyceride 87 mg/dL (30-150)
[2018-01-13 22:36] LABS: T3, Total 82 ng/dl (97-169)
[2018-01-20] MEDS: Normal Saline Flush 10 ML SYR IVP (12:45)
[2018-01-20 13:21] LABS: Abs Immature Grans 0.02 k/cumm (0.0-0.09); Absolute Basophil Count 0.09 k/cumm (0.0-0.2); Absolute Eosinophil Count 0.07 k/cumm (0.0-0.7); Absolute Monocyte Count 0.67 k/cumm (0.11-0.7); Absolute Neutrophil Count 9.04 k/cumm (1.2-6.7); Basophils % 0.8; Eosinophils % 0.6; HCT 34.7 % (36.0-46.0); HGB 11.5 g/dL (12.0-15.5); Immature Grans % 0.2; Lymphocytes % 16.1; Mean Corp. HGB Concentration 33.1 g/dL (32.0-36.0); Mean Corpuscular Hemoglobin 30.3 pg (27.0-33.0); Mean Corpuscular Volume 91.3 fL (80-95); Mean Platelet Volume 11.2 fL (8.0-11.0); Monocytes % 5.7; Neutrophils % 76.6; Platelet Count 311 x1000/uL (130-400); RBC Distribution Width 16.1 % (11.7-14.6)
[2018-01-20 13:30] LABS: Iron 54 ug/dL (50-175)
[2018-01-20 13:39] LABS: ALT 48 U/L (12-78); AST 56 U/L (15-37); Albumin 2.6 g/dL (3.4-5.0); Alkaline Phosphatase 114 U/L (46-116); BUN 15 mg/dL (7-18); Bilirubin, Total 0.3 mg/dL (0.2-1.0); Calcium 8.4 mg/dL (8.5-10.1); Chloride 106 mmol/L (98-107); Glucose 95 mg/dL (70-100); Magnesium 1.7 mg/dL (1.8-2.4); PHOSPHORUS 4.2 mg/dL (2.6-4.7); Potassium 4.1 mmol/L (3.5-5.1); Sodium 139 mmol/L (136-145); Total Protein 6.3 g/dL (6.4-8.2)
[2018-01-20 13:53] LABS: Triglyceride 78 mg/dL (30-150)
[2018-01-20 22:14] LABS: T3, Total 79 ng/dl (97-169)
[2018-01-21 10:39] LABS: Prealbumin 18 mg/dL (20-40)
== END 2018-01-22 23:59 | disposition home or self-care (01) ==
LOC: INF 01:23
PROVIDERS: Internal Medicine Gastroenterology; PCP Family Medicine; Visit Provider Surgery
DX: K91.2 Postsurgical malabsorption, not elsewhere classified (principal); E03.9 Hypothyroidism, unspecified; Z45.2 Encounter for adjustment and management of vascular access device
CPT/HCPCS: 36592; 80053; 96365; 96366; 82728; 83540; 83735; 84100; 84134; 84439; 84443; 84478; 84480; 85025

== ENCOUNTER 2018-02-17 01:39 | Outpatient (RCR) | payer BC, SELFPAY ==
[2018-01-27] MEDS: Normal Saline Flush 10 ML SYR IVP (11:20)
[2018-01-27 11:38] LABS: Abs Immature Grans 0.02 k/cumm (0.0-0.09); Absolute Basophil Count 0.12 k/cumm (0.0-0.2); Absolute Eosinophil Count 0.23 k/cumm (0.0-0.7); Absolute Lymphocyte Count 1.82 k/cumm (1.2-3.4); Absolute Monocyte Count 0.57 k/cumm (0.11-0.7); Absolute Neutrophil Count 6.02 k/cumm (1.2-6.7); Basophils % 1.4; Eosinophils % 2.6; HCT 32.9 % (36.0-46.0); HGB 10.7 g/dL (12.0-15.5); Immature Grans % 0.2; Lymphocytes % 20.7; Mean Corp. HGB Concentration 32.5 g/dL (32.0-36.0); Mean Corpuscular Hemoglobin 30.1 pg (27.0-33.0); Mean Corpuscular Volume 92.4 fL (80-95); Mean Platelet Volume 10.9 fL (8.0-11.0); Monocytes % 6.5; Neutrophils % 68.6; Platelet Count 299 x1000/uL (130-400); RBC 3.56 m/cumm (4.00-5.20); RBC Distribution Width 16.8 % (11.7-14.6); White Blood Cell Count 8.78 k/cumm (4.4-10.8)
[2018-01-27 12:03] LABS: ALT 45 U/L (12-78); AST 53 U/L (15-37); Albumin 2.5 g/dL (3.4-5.0); Alkaline Phosphatase 104 U/L (46-116); Anion Gap 10.6 mmol/L (3-11); BUN 18 mg/dL (7-18); Bilirubin, Total 0.3 mg/dL (0.2-1.0); CO2 22.4 mmol/L (21.0-32.0); CREATININE 0.71 mg/dL (0.55-1.02); Calcium 7.8 mg/dL (8.5-10.1); Chloride 107 mmol/L (98-107); Glucose 85 mg/dL (70-100); Magnesium 1.6 mg/dL (1.8-2.4); PHOSPHORUS 4.1 mg/dL (2.6-4.7); Potassium 3.9 mmol/L (3.5-5.1); Sodium 140 mmol/L (136-145); Total Protein 5.8 g/dL (6.4-8.2)
[2018-01-27 12:18] LABS: Triglyceride 71 mg/dL (30-150)
[2018-01-28 10:03] LABS: Prealbumin 16 mg/dL (20-40)
[2018-02-03] MEDS: Normal Saline Flush 10 ML SYR IVP (13:00)
[2018-02-03 13:17] LABS: Abs Immature Grans 0.01 k/cumm (0.0-0.09); Absolute Basophil Count 0.08 k/cumm (0.0-0.2); Absolute Eosinophil Count 0.23 k/cumm (0.0-0.7); Absolute Lymphocyte Count 1.69 k/cumm (1.2-3.4); Absolute Monocyte Count 0.46 k/cumm (0.11-0.7); Absolute Neutrophil Count 5.31 k/cumm (1.2-6.7); HCT 33.9 % (36.0-46.0); HGB 11.1 g/dL (12.0-15.5); Immature Grans % 0.1; Lymphocytes % 21.7; Mean Corp. HGB Concentration 32.7 g/dL (32.0-36.0); Mean Corpuscular Hemoglobin 30.7 pg (27.0-33.0); Mean Corpuscular Volume 93.6 fL (80-95); Mean Platelet Volume 10.9 fL (8.0-11.0); Monocytes % 5.9; Neutrophils % 68.3; Platelet Count 328 x1000/uL (130-400); RBC 3.62 m/cumm (4.00-5.20); RBC Distribution Width 16.8 % (11.7-14.6); White Blood Cell Count 7.78 k/cumm (4.4-10.8)
[2018-02-03 13:54] LABS: ALT 47 U/L (12-78); AST 54 U/L (15-37); Albumin 2.3 g/dL (3.4-5.0); Alkaline Phosphatase 106 U/L (46-116); Anion Gap 11.4 mmol/L (3-11); BUN 15 mg/dL (7-18); Bilirubin, Total 0.4 mg/dL (0.2-1.0); CO2 21.6 mmol/L (21.0-32.0); CREATININE 0.84 mg/dL (0.55-1.02); Chloride 106 mmol/L (98-107); Glucose 99 mg/dL (70-100); Magnesium 1.5 mg/dL (1.8-2.4); PHOSPHORUS 3.7 mg/dL (2.6-4.7); Potassium 3.7 mmol/L (3.5-5.1); Sodium 139 mmol/L (136-145); Total Protein 5.8 g/dL (6.4-8.2)
[2018-02-03 14:29] LABS: Triglyceride 90 mg/dL (30-150)
[2018-02-04 11:48] LABS: Prealbumin 15 mg/dL (20-40)
[2018-02-10] MEDS: Normal Saline Flush 10 ML SYR IVP (12:45)
[2018-02-10 13:12] LABS: Abs Immature Grans 0.02 k/cumm (0.0-0.09); Absolute Basophil Count 0.09 k/cumm (0.0-0.2); Absolute Eosinophil Count 0.18 k/cumm (0.0-0.7); Absolute Lymphocyte Count 2.16 k/cumm (1.2-3.4); Absolute Monocyte Count 0.66 k/cumm (0.11-0.7); Absolute Neutrophil Count 5.53 k/cumm (1.2-6.7); Eosinophils % 2.1; HCT 33.6 % (36.0-46.0); HGB 10.9 g/dL (12.0-15.5); Immature Grans % 0.2; Mean Corp. HGB Concentration 32.4 g/dL (32.0-36.0); Mean Corpuscular Hemoglobin 31.1 pg (27.0-33.0); Mean Platelet Volume 10.9 fL (8.0-11.0); Monocytes % 7.6; Neutrophils % 64.1; Platelet Count 287 x1000/uL (130-400); RBC Distribution Width 16.8 % (11.7-14.6); White Blood Cell Count 8.64 k/cumm (4.4-10.8)
[2018-02-10 13:25] LABS: ALT 52 U/L (12-78); AST 66 U/L (15-37); Albumin 2.5 g/dL (3.4-5.0); Alkaline Phosphatase 100 U/L (46-116); Anion Gap 10.8 mmol/L (3-11); BUN 20 mg/dL (7-18); Bilirubin, Total 0.4 mg/dL (0.2-1.0); CO2 23.2 mmol/L (21.0-32.0); Calcium 8.2 mg/dL (8.5-10.1); Chloride 108 mmol/L (98-107); Glucose 106 mg/dL (70-100); PHOSPHORUS 3.6 mg/dL (2.6-4.7); Potassium 3.6 mmol/L (3.5-5.1); Sodium 142 mmol/L (136-145); Total Protein 6.1 g/dL (6.4-8.2)
[2018-02-10 13:35] LABS: Triglyceride 109 mg/dL (30-150)
[2018-02-11 09:34] LABS: Prealbumin 20 mg/dL (20-40)
[2018-02-17] MEDS: Normal Saline Flush 10 ML SYR IVP (12:45)
[2018-02-17 12:59] LABS: Abs Immature Grans 0.01 k/cumm (0.0-0.09); Absolute Basophil Count 0.07 k/cumm (0.0-0.2); Absolute Eosinophil Count 0.09 k/cumm (0.0-0.7); Absolute Lymphocyte Count 2.01 k/cumm (1.2-3.4); Absolute Monocyte Count 0.52 k/cumm (0.11-0.7); Absolute Neutrophil Count 4.58 k/cumm (1.2-6.7); Eosinophils % 1.2; HCT 30.9 % (36.0-46.0); Immature Grans % 0.1; Lymphocytes % 27.6; Mean Corp. HGB Concentration 32.4 g/dL (32.0-36.0); Mean Corpuscular Hemoglobin 31.3 pg (27.0-33.0); Mean Corpuscular Volume 96.6 fL (80-95); Mean Platelet Volume 10.6 fL (8.0-11.0); Monocytes % 7.1; Platelet Count 274 x1000/uL (130-400); RBC Distribution Width 15.3 % (11.7-14.6); White Blood Cell Count 7.28 k/cumm (4.4-10.8)
[2018-02-17 13:11] LABS: ALT 47 U/L (12-78); AST 40 U/L (15-37); Albumin 2.5 g/dL (3.4-5.0); Alkaline Phosphatase 99 U/L (46-116); Anion Gap 9.4 mmol/L (3-11); BUN 20 mg/dL (7-18); Bilirubin, Total 0.3 mg/dL (0.2-1.0); CO2 22.6 mmol/L (21.0-32.0); CREATININE 0.59 mg/dL (0.55-1.02); Calcium 8.2 mg/dL (8.5-10.1); Chloride 107 mmol/L (98-107); Glucose 88 mg/dL (70-100); Magnesium 1.7 mg/dL (1.8-2.4); PHOSPHORUS 3.4 mg/dL (2.6-4.7); Potassium 3.7 mmol/L (3.5-5.1); Sodium 139 mmol/L (136-145); Total Protein 5.9 g/dL (6.4-8.2)
[2018-02-17 13:24] LABS: Triglyceride 84 mg/dL (30-150)
[2018-02-18 12:58] LABS: Prealbumin 16 mg/dL (20-40)
== END 2018-02-21 23:59 | disposition home or self-care (01) ==
LOC: INF 01:39
PROVIDERS: Internal Medicine Gastroenterology; PCP Family Medicine; Visit Provider Surgery
DX: K91.2 Postsurgical malabsorption, not elsewhere classified (principal); Z45.2 Encounter for adjustment and management of vascular access device
CPT/HCPCS: 36592; 80053; 83735; 84100; 84134; 84478; 85025

== ENCOUNTER 2018-03-24 01:18 | Outpatient (RCR) | payer BC, SELFPAY ==
[2018-02-24 13:21] LABS: Abs Immature Grans 0.01 k/cumm (0.0-0.09); Absolute Basophil Count 0.02 k/cumm (0.0-0.2); Absolute Eosinophil Count 0.06 k/cumm (0.0-0.7); Absolute Lymphocyte Count 1.45 k/cumm (1.2-3.4); Absolute Monocyte Count 0.51 k/cumm (0.11-0.7); Absolute Neutrophil Count 5.22 k/cumm (1.2-6.7); Basophils % 0.3; Eosinophils % 0.8; HCT 30.4 % (36.0-46.0); Immature Grans % 0.1; Lymphocytes % 19.9; Mean Corp. HGB Concentration 32.9 g/dL (32.0-36.0); Mean Corpuscular Hemoglobin 31.3 pg (27.0-33.0); Mean Platelet Volume 10.4 fL (8.0-11.0); Neutrophils % 71.9; Platelet Count 338 x1000/uL (130-400); RBC Distribution Width 14.9 % (11.7-14.6); White Blood Cell Count 7.27 k/cumm (4.4-10.8)
[2018-02-24] MEDS: Normal Saline Flush 10 ML SYR IVP (13:29)
[2018-02-24 13:39] LABS: ALT 32 U/L (12-78); AST 21 U/L (15-37); Albumin 2.4 g/dL (3.4-5.0); Alkaline Phosphatase 118 U/L (46-116); Anion Gap 11.7 mmol/L (3-11); BUN 12 mg/dL (7-18); Bilirubin, Total 0.3 mg/dL (0.2-1.0); CO2 22.3 mmol/L (21.0-32.0); CREATININE 0.69 mg/dL (0.55-1.02); Calcium 7.9 mg/dL (8.5-10.1); Chloride 108 mmol/L (98-107); Glucose 88 mg/dL (70-100); Magnesium 1.7 mg/dL (1.8-2.4); PHOSPHORUS 2.9 mg/dL (2.6-4.7); Potassium 3.1 mmol/L (3.5-5.1); Sodium 142 mmol/L (136-145); Total Protein 5.8 g/dL (6.4-8.2)
[2018-02-24 13:53] LABS: Triglyceride 58 mg/dL (30-150)
[2018-02-25 11:57] LABS: Prealbumin 13 mg/dL (20-40)
[2018-03-03] MEDS: Normal Saline Flush 10 ML SYR IVP (12:40)
[2018-03-03 13:10] LABS: Abs Immature Grans 0.01 k/cumm (0.0-0.09); Absolute Basophil Count 0.11 k/cumm (0.0-0.2); Absolute Eosinophil Count 0.08 k/cumm (0.0-0.7); Absolute Lymphocyte Count 1.53 k/cumm (1.2-3.4); Absolute Monocyte Count 0.49 k/cumm (0.11-0.7); Absolute Neutrophil Count 3.24 k/cumm (1.2-6.7); Eosinophils % 1.5; HCT 31.4 % (36.0-46.0); Immature Grans % 0.2; Mean Corp. HGB Concentration 31.8 g/dL (32.0-36.0); Mean Corpuscular Hemoglobin 30.7 pg (27.0-33.0); Mean Corpuscular Volume 96.3 fL (80-95); Mean Platelet Volume 10.6 fL (8.0-11.0); Neutrophils % 59.3; Platelet Count 365 x1000/uL (130-400); RBC 3.26 m/cumm (4.00-5.20); RBC Distribution Width 14.3 % (11.7-14.6); White Blood Cell Count 5.46 k/cumm (4.4-10.8)
[2018-03-03 13:32] LABS: ALT 30 U/L (12-78); AST 25 U/L (15-37); Albumin 2.4 g/dL (3.4-5.0); Alkaline Phosphatase 86 U/L (46-116); Anion Gap 12.5 mmol/L (3-11); BUN 20 mg/dL (7-18); Bilirubin, Total 0.2 mg/dL (0.2-1.0); CO2 22.5 mmol/L (21.0-32.0); CREATININE 0.63 mg/dL (0.55-1.02); Calcium 8.1 mg/dL (8.5-10.1); Chloride 108 mmol/L (98-107); Glucose 91 mg/dL (70-100); Magnesium 1.7 mg/dL (1.8-2.4); PHOSPHORUS 3.7 mg/dL (2.6-4.7); Potassium 3.6 mmol/L (3.5-5.1); Sodium 143 mmol/L (136-145)
[2018-03-03 14:02] LABS: Triglyceride 68 mg/dL (30-150)
[2018-03-05 11:39] LABS: Prealbumin 12 mg/dL (20-40)
[2018-03-10] MEDS: Normal Saline Flush 10 ML SYR IVP (09:05)
[2018-03-10 09:35] LABS: Abs Immature Grans 0.01 k/cumm (0.0-0.09); Absolute Lymphocyte Count 1.54 k/cumm (1.2-3.4); Absolute Monocyte Count 0.44 k/cumm (0.11-0.7); Absolute Neutrophil Count 4.14 k/cumm (1.2-6.7); Basophils % 1.6; Eosinophils % 1.6; HCT 31.8 % (36.0-46.0); HGB 10.1 g/dL (12.0-15.5); Immature Grans % 0.2; Lymphocytes % 24.3; Mean Corp. HGB Concentration 31.8 g/dL (32.0-36.0); Mean Corpuscular Hemoglobin 30.4 pg (27.0-33.0); Mean Corpuscular Volume 95.8 fL (80-95); Mean Platelet Volume 10.5 fL (8.0-11.0); Neutrophils % 65.3; Platelet Count 300 x1000/uL (130-400); RBC 3.32 m/cumm (4.00-5.20); RBC Distribution Width 13.6 % (11.7-14.6); White Blood Cell Count 6.33 k/cumm (4.4-10.8)
[2018-03-10 09:49] LABS: ALT 39 U/L (12-78); AST 41 U/L (15-37); Albumin 2.6 g/dL (3.4-5.0); Alkaline Phosphatase 97 U/L (46-116); Anion Gap 11.3 mmol/L (3-11); BUN 20 mg/dL (7-18); Bilirubin, Total 0.2 mg/dL (0.2-1.0); CO2 22.7 mmol/L (21.0-32.0); CREATININE 0.52 mg/dL (0.55-1.02); Calcium 8.2 mg/dL (8.5-10.1); Chloride 107 mmol/L (98-107); Glucose 93 mg/dL (70-100); Magnesium 1.7 mg/dL (1.8-2.4); Potassium 3.6 mmol/L (3.5-5.1); Sodium 141 mmol/L (136-145); Total Protein 6.2 g/dL (6.4-8.2)
[2018-03-10 10:00] LABS: Triglyceride 75 mg/dL (30-150)
[2018-03-11 10:29] LABS: Prealbumin 13 mg/dL (20-40)
[2018-03-17 10:48] LABS: Absolute Basophil Count 0.13 k/cumm (0.0-0.2); Absolute Eosinophil Count 0.12 k/cumm (0.0-0.7); Absolute Lymphocyte Count 1.86 k/cumm (1.2-3.4); Absolute Neutrophil Count 2.69 k/cumm (1.2-6.7); Basophils % 2.5; Eosinophils % 2.3; HCT 31.3 % (36.0-46.0); HGB 9.8 g/dL (12.0-15.5); Lymphocytes % 35.8; Mean Corp. HGB Concentration 31.3 g/dL (32.0-36.0); Mean Corpuscular Volume 95.7 fL (80-95); Monocytes % 7.7; Neutrophils % 51.7; Platelet Count 318 x1000/uL (130-400); RBC 3.27 m/cumm (4.00-5.20); RBC Distribution Width 13.7 % (11.7-14.6)
[2018-03-17] MEDS: Normal Saline Flush 10 ML SYR IVP (11:06)
[2018-03-17 11:11] LABS: ALT 39 U/L (12-78); AST 29 U/L (15-37); Albumin 2.7 g/dL (3.4-5.0); Alkaline Phosphatase 87 U/L (46-116); Anion Gap 11.9 mmol/L (3-11); BUN 21 mg/dL (7-18); Bilirubin, Total 0.3 mg/dL (0.2-1.0); CO2 22.1 mmol/L (21.0-32.0); CREATININE 0.58 mg/dL (0.55-1.02); Calcium 8.4 mg/dL (8.5-10.1); Chloride 107 mmol/L (98-107); Glucose 93 mg/dL (70-100); Magnesium 1.7 mg/dL (1.8-2.4); PHOSPHORUS 3.6 mg/dL (2.6-4.7); Potassium 3.9 mmol/L (3.5-5.1); Sodium 141 mmol/L (136-145); Total Protein 6.2 g/dL (6.4-8.2)
[2018-03-17 11:26] LABS: Triglyceride 69 mg/dL (30-150)
[2018-03-19 09:25] LABS: Prealbumin 18 mg/dL (20-40)
[2018-03-24] MEDS: Normal Saline Flush 10 ML SYR IVP (12:45)
[2018-03-24 13:20] LABS: Absolute Basophil Count 0.09 k/cumm (0.0-0.2); Absolute Eosinophil Count 0.16 k/cumm (0.0-0.7); Absolute Lymphocyte Count 1.96 k/cumm (1.2-3.4); Absolute Monocyte Count 0.51 k/cumm (0.11-0.7); Basophils % 1.9; Eosinophils % 3.3; HCT 32.1 % (36.0-46.0); HGB 10.3 g/dL (12.0-15.5); Lymphocytes % 40.7; Mean Corp. HGB Concentration 32.1 g/dL (32.0-36.0); Mean Corpuscular Hemoglobin 30.5 pg (27.0-33.0); Mean Platelet Volume 10.4 fL (8.0-11.0); Monocytes % 10.6; Neutrophils % 43.5; Platelet Count 387 x1000/uL (130-400); RBC 3.38 m/cumm (4.00-5.20); RBC Distribution Width 14.1 % (11.7-14.6); White Blood Cell Count 4.82 k/cumm (4.4-10.8)
[2018-03-24 13:29] LABS: ALT 49 U/L (12-78); AST 34 U/L (15-37); Alkaline Phosphatase 109 U/L (46-116); Anion Gap 13.2 mmol/L (3-11); BUN 22 mg/dL (7-18); Bilirubin, Total 0.3 mg/dL (0.2-1.0); CO2 20.8 mmol/L (21.0-32.0); CREATININE 0.73 mg/dL (0.55-1.02); Calcium 8.5 mg/dL (8.5-10.1); Chloride 106 mmol/L (98-107); Glucose 95 mg/dL (70-100); Magnesium 1.6 mg/dL (1.8-2.4); Potassium 3.6 mmol/L (3.5-5.1); Sodium 140 mmol/L (136-145); Total Protein 6.8 g/dL (6.4-8.2); Triglyceride 80 mg/dL (30-150)
[2018-03-24 13:39] LABS: PHOSPHORUS 4.2 mg/dL (2.6-4.7)
[2018-03-25 11:15] LABS: Prealbumin 15 mg/dL (20-40)
== END 2018-03-24 23:59 | disposition home or self-care (01) ==
LOC: INF 01:18
PROVIDERS: PCP Family Medicine; Visit Provider Internal Medicine Gastroenterology
DX: K91.2 Postsurgical malabsorption, not elsewhere classified (principal); Z45.2 Encounter for adjustment and management of vascular access device
CPT/HCPCS: 36592; 80053; 83735; 84100; 84134; 84478; 85025

== ENCOUNTER 2018-04-21 01:09 | Outpatient (RCR) | payer BC, SELFPAY ==
[2018-03-31 13:17] LABS: Absolute Eosinophil Count 0.12 k/cumm (0.0-0.7); Absolute Lymphocyte Count 1.88 k/cumm (1.2-3.4); Absolute Monocyte Count 0.56 k/cumm (0.11-0.7); Absolute Neutrophil Count 1.52 k/cumm (1.2-6.7); Basophils % 2.4; Eosinophils % 2.9; HCT 29.7 % (36.0-46.0); HGB 9.5 g/dL (12.0-15.5); Mean Corpuscular Hemoglobin 30.3 pg (27.0-33.0); Mean Corpuscular Volume 94.6 fL (80-95); Mean Platelet Volume 10.5 fL (8.0-11.0); Monocytes % 13.4; Neutrophils % 36.3; Platelet Count 340 x1000/uL (130-400); RBC 3.14 m/cumm (4.00-5.20); RBC Distribution Width 14.4 % (11.7-14.6); White Blood Cell Count 4.18 k/cumm (4.4-10.8)
[2018-03-31 13:24] LABS: ALT 50 U/L (12-78); AST 34 U/L (15-37); Albumin 2.7 g/dL (3.4-5.0); Alkaline Phosphatase 107 U/L (46-116); Anion Gap 8.8 mmol/L (3-11); BUN 22 mg/dL (7-18); Bilirubin, Total 0.3 mg/dL (0.2-1.0); CO2 24.2 mmol/L (21.0-32.0); CREATININE 0.68 mg/dL (0.55-1.02); Calcium 8.5 mg/dL (8.5-10.1); Chloride 109 mmol/L (98-107); Glucose 97 mg/dL (70-100); Magnesium 1.7 mg/dL (1.8-2.4); Potassium 3.8 mmol/L (3.5-5.1); Sodium 142 mmol/L (136-145); Total Protein 6.5 g/dL (6.4-8.2); Triglyceride 87 mg/dL (30-150)
[2018-03-31] MEDS: Normal Saline Flush 10 ML SYR IVP (13:26)
[2018-03-31 13:33] LABS: PHOSPHORUS 4.1 mg/dL (2.6-4.7)
[2018-04-01 08:58] LABS: Prealbumin 17 mg/dL (20-40)
[2018-04-07] MEDS: Normal Saline Flush 10 ML SYR IVP (12:50)
[2018-04-14] MEDS: Normal Saline Flush 10 ML SYR IVP (11:47)
[2018-04-14 12:01] LABS: Absolute Basophil Count 0.08 k/cumm (0.0-0.2); Absolute Eosinophil Count 0.12 k/cumm (0.0-0.7); Absolute Lymphocyte Count 1.55 k/cumm (1.2-3.4); Absolute Monocyte Count 0.49 k/cumm (0.11-0.7); Basophils % 2.5; Eosinophils % 3.8; HCT 28.7 % (36.0-46.0); HGB 8.8 g/dL (12.0-15.5); Lymphocytes % 49.4; Mean Corp. HGB Concentration 30.7 g/dL (32.0-36.0); Mean Corpuscular Hemoglobin 29.5 pg (27.0-33.0); Mean Corpuscular Volume 96.3 fL (80-95); Mean Platelet Volume 10.4 fL (8.0-11.0); Monocytes % 15.6; Neutrophils % 28.7; Platelet Count 342 x1000/uL (130-400); RBC 2.98 m/cumm (4.00-5.20); RBC Distribution Width 16.3 % (11.7-14.6); White Blood Cell Count 3.14 k/cumm (4.4-10.8)
[2018-04-14 12:10] LABS: ALT 102 U/L (12-78); AST 66 U/L (15-37); Albumin 2.7 g/dL (3.4-5.0); Alkaline Phosphatase 136 U/L (46-116); Anion Gap 11.3 mmol/L (3-11); BUN 20 mg/dL (7-18); Bilirubin, Total 0.3 mg/dL (0.2-1.0); CO2 20.7 mmol/L (21.0-32.0); CREATININE 0.54 mg/dL (0.55-1.02); Calcium 8.1 mg/dL (8.5-10.1); Chloride 105 mmol/L (98-107); Glucose 86 mg/dL (70-100); Magnesium 1.8 mg/dL (1.8-2.4); Potassium 3.5 mmol/L (3.5-5.1); Sodium 137 mmol/L (136-145); Total Protein 6.4 g/dL (6.4-8.2); Triglyceride 73 mg/dL (30-150)
[2018-04-14 12:18] LABS: Anisocytosis 1+; Diff Comment Diff Reviewed; Hypochromasia 2+
[2018-04-14 14:42] LABS: PHOSPHORUS 2.5 mg/dL (2.6-4.7)
[2018-04-15 11:29] LABS: Prealbumin 14 mg/dL (20-40)
[2018-04-21 13:30] LABS: HCT 27.3 % (36.0-46.0); HGB 8.5 g/dL (12.0-15.5); Mean Corp. HGB Concentration 31.1 g/dL (32.0-36.0); Mean Corpuscular Hemoglobin 30.9 pg (27.0-33.0); Mean Corpuscular Volume 99.3 fL (80-95); Platelet Count 407 x1000/uL (130-400); RBC 2.75 m/cumm (4.00-5.20); RBC Distribution Width 17.5 % (11.7-14.6); White Blood Cell Count 2.93 k/cumm (4.4-10.8)
[2018-04-21 13:49] LABS: ALT 153 U/L (12-78); AST 93 U/L (15-37); Albumin 2.7 g/dL (3.4-5.0); Alkaline Phosphatase 150 U/L (46-116); Anion Gap 13.3 mmol/L (3-11); BUN 22 mg/dL (7-18); Bilirubin, Total 0.2 mg/dL (0.2-1.0); CO2 21.7 mmol/L (21.0-32.0); CREATININE 0.62 mg/dL (0.55-1.02); Calcium 8.7 mg/dL (8.5-10.1); Chloride 108 mmol/L (98-107); Glucose 101 mg/dL (70-100); Magnesium 1.8 mg/dL (1.8-2.4); PHOSPHORUS 3.7 mg/dL (2.6-4.7); Potassium 3.8 mmol/L (3.5-5.1); Sodium 143 mmol/L (136-145); Total Protein 6.4 g/dL (6.4-8.2)
[2018-04-21 14:00] LABS: Triglyceride 84 mg/dL (30-150)
[2018-04-21 14:05] LABS: Absolute Eosinophil Count 0.15 k/cumm (0.0-0.7); Absolute Lymphocyte Count 1.26 k/cumm (1.2-3.4); Absolute Monocyte Count 0.23 k/cumm (0.11-0.7); Absolute Neutrophil Count 1.29 k/cumm (1.2-6.7)
[2018-04-21 14:06] LABS: Anisocytosis 1+; Diff Comment Manual Differential; Hypochromasia 2+; Macrocytosis 1+; Polychromasia Present
[2018-04-21] MEDS: Normal Saline Flush 10 ML SYR IVP (14:11)
[2018-04-22 10:05] LABS: Prealbumin 16 mg/dL (20-40)
== END 2018-04-24 23:59 | disposition home or self-care (01) ==
LOC: INF 01:09
PROVIDERS: PCP Family Medicine; Visit Provider Internal Medicine Gastroenterology
DX: K91.2 Postsurgical malabsorption, not elsewhere classified (principal); Z45.2 Encounter for adjustment and management of vascular access device
CPT/HCPCS: 36592; 80053; 83735; 84100; 84134; 84478; 85025

== ENCOUNTER 2018-05-19 01:03 | Outpatient (RCR) | payer BC, SELFPAY ==
[2018-04-28] MEDS: Normal Saline Flush 10 ML SYR IVP (14:30)
[2018-04-28 14:52] LABS: Absolute Basophil Count 0.08 k/cumm (0.0-0.2); Absolute Eosinophil Count 0.07 k/cumm (0.0-0.7); Absolute Lymphocyte Count 1.78 k/cumm (1.2-3.4); Absolute Monocyte Count 0.56 k/cumm (0.11-0.7); Absolute Neutrophil Count 0.83 k/cumm (1.2-6.7); Basophils % 2.4; Eosinophils % 2.1; HCT 25.4 % (36.0-46.0); HGB 7.9 g/dL (12.0-15.5); Lymphocytes % 53.6; Mean Corp. HGB Concentration 31.1 g/dL (32.0-36.0); Mean Corpuscular Hemoglobin 31.1 pg (27.0-33.0); Mean Platelet Volume 10.4 fL (8.0-11.0); Monocytes % 16.9; Platelet Count 398 x1000/uL (130-400); RBC 2.54 m/cumm (4.00-5.20); RBC Distribution Width 17.3 % (11.7-14.6); White Blood Cell Count 3.32 k/cumm (4.4-10.8)
[2018-04-28 15:04] LABS: ALT 148 U/L (12-78); AST 75 U/L (15-37); Albumin 2.9 g/dL (3.4-5.0); Alkaline Phosphatase 168 U/L (46-116); Anion Gap 9.7 mmol/L (3-11); BUN 20 mg/dL (7-18); Bilirubin, Total 0.3 mg/dL (0.2-1.0); CO2 25.3 mmol/L (21.0-32.0); Calcium 8.6 mg/dL (8.5-10.1); Chloride 102 mmol/L (98-107); Glucose 88 mg/dL (70-100); Magnesium 1.7 mg/dL (1.8-2.4); PHOSPHORUS 3.9 mg/dL (2.6-4.7); Potassium 3.9 mmol/L (3.5-5.1); Sodium 137 mmol/L (136-145); Total Protein 6.7 g/dL (6.4-8.2)
[2018-04-28 15:10] LABS: Anisocytosis 1+; Basophilic Stippling Present; Diff Comment Agrees w/ Instrument; Hypochromasia 1+; Polychromasia Present
[2018-04-28 15:21] LABS: Triglyceride 88 mg/dL (30-150)
[2018-04-29 10:40] LABS: Prealbumin 16 mg/dL (20-40)
[2018-05-05] MEDS: Normal Saline Flush 10 ML SYR IVP (13:10)
[2018-05-05 13:40] LABS: HCT 26.2 % (36.0-46.0); Mean Corp. HGB Concentration 30.5 g/dL (32.0-36.0); Mean Corpuscular Hemoglobin 30.8 pg (27.0-33.0); Mean Corpuscular Volume 100.8 fL (80-95); Mean Platelet Volume 10.1 fL (8.0-11.0); Platelet Count 418 x1000/uL (130-400); RBC Distribution Width 16.2 % (11.7-14.6); White Blood Cell Count 2.74 k/cumm (4.4-10.8)
[2018-05-05 13:55] LABS: ALT 104 U/L (12-78); AST 61 U/L (15-37); Albumin 2.9 g/dL (3.4-5.0); Alkaline Phosphatase 150 U/L (46-116); Anion Gap 10.8 mmol/L (3-11); BUN 18 mg/dL (7-18); Bilirubin, Total 0.3 mg/dL (0.2-1.0); CO2 23.2 mmol/L (21.0-32.0); CREATININE 0.74 mg/dL (0.55-1.02); Calcium 8.4 mg/dL (8.5-10.1); Chloride 105 mmol/L (98-107); FREE T4 0.95 ng/dL (0.76-1.46); Glucose 93 mg/dL (70-100); Magnesium 1.3 mg/dL (1.8-2.4); Potassium 3.3 mmol/L (3.5-5.1); Sodium 139 mmol/L (136-145); Total Protein 6.8 g/dL (6.4-8.2)
[2018-05-05 14:06] LABS: Triglyceride 64 mg/dL (30-150)
[2018-05-05 14:24] LABS: Absolute Basophil Count 0.05 k/cumm (0.0-0.2); Absolute Eosinophil Count 0.03 k/cumm (0.0-0.7); Absolute Lymphocyte Count 1.42 k/cumm (1.2-3.4); Absolute Monocyte Count 0.36 k/cumm (0.11-0.7); Absolute Neutrophil Count 0.88 k/cumm (1.2-6.7); Atypical Lymphocytes % 2; Diff Comment Manual Differential
[2018-05-05 14:25] LABS: Anisocytosis 1+; Hypochromasia 1+; Macrocytosis 2+; Polychromasia Present
[2018-05-05 21:37] LABS: T3, Total 75 ng/dl (97-169)
[2018-05-06 10:56] LABS: Prealbumin 18 mg/dL (20-40)
[2018-05-12] MEDS: Normal Saline Flush 10 ML SYR IVP (12:04)
[2018-05-12 12:35] LABS: ALT 102 U/L (12-78); AST 66 U/L (15-37); Albumin 2.6 g/dL (3.4-5.0); Alkaline Phosphatase 140 U/L (46-116); Anion Gap 10.8 mmol/L (3-11); BUN 16 mg/dL (7-18); Bilirubin, Total 0.2 mg/dL (0.2-1.0); CO2 23.2 mmol/L (21.0-32.0); CREATININE 0.53 mg/dL (0.55-1.02); Calcium 8.1 mg/dL (8.5-10.1); Chloride 105 mmol/L (98-107); Glucose 91 mg/dL (70-100); Magnesium 1.5 mg/dL (1.8-2.4); PHOSPHORUS 3.7 mg/dL (2.6-4.7); Potassium 3.8 mmol/L (3.5-5.1); Sodium 139 mmol/L (136-145); Total Protein 6.5 g/dL (6.4-8.2)
[2018-05-12 12:55] LABS: Absolute Basophil Count 0.07 k/cumm (0.0-0.2); Absolute Eosinophil Count 0.08 k/cumm (0.0-0.7); Absolute Neutrophil Count 0.52 k/cumm (1.2-6.7); Basophils % 3.1; Eosinophils % 3.5; HCT 25.4 % (36.0-46.0); HGB 7.8 g/dL (12.0-15.5); Lymphocytes % 52.9; Mean Corp. HGB Concentration 30.7 g/dL (32.0-36.0); Mean Corpuscular Hemoglobin 31.2 pg (27.0-33.0); Mean Corpuscular Volume 101.6 fL (80-95); Mean Platelet Volume 10.4 fL (8.0-11.0); Monocytes % 17.6; Neutrophils % 22.9; Platelet Count 413 x1000/uL (130-400); RBC Distribution Width 16.2 % (11.7-14.6); White Blood Cell Count 2.27 k/cumm (4.4-10.8)
[2018-05-12 13:17] LABS: Anisocytosis 1+; Diff Comment Agrees w/ Instrument; Hypochromasia 1+; Macrocytosis 1+; Polychromasia Present
[2018-05-13 10:59] LABS: Prealbumin 14 mg/dL (20-40)
[2018-05-14] MEDS: Normal Saline Flush 10 ML SYR IVP (10:26)
[2018-05-19] MEDS: Normal Saline Flush 10 ML SYR IVP (13:29)
[2018-05-19 13:52] LABS: Absolute Basophil Count 0.07 k/cumm (0.0-0.2); Absolute Eosinophil Count 0.18 k/cumm (0.0-0.7); Absolute Lymphocyte Count 1.58 k/cumm (1.2-3.4); Absolute Monocyte Count 0.55 k/cumm (0.11-0.7); Absolute Neutrophil Count 0.85 k/cumm (1.2-6.7); Basophils % 2.2; Eosinophils % 5.6; HCT 27.3 % (36.0-46.0); HGB 8.4 g/dL (12.0-15.5); Lymphocytes % 48.9; Mean Corp. HGB Concentration 30.8 g/dL (32.0-36.0); Mean Corpuscular Hemoglobin 31.6 pg (27.0-33.0); Mean Corpuscular Volume 102.6 fL (80-95); Mean Platelet Volume 10.3 fL (8.0-11.0); Neutrophils % 26.3; Platelet Count 430 x1000/uL (130-400); RBC 2.66 m/cumm (4.00-5.20); RBC Distribution Width 17.1 % (11.7-14.6); White Blood Cell Count 3.23 k/cumm (4.4-10.8)
[2018-05-19 14:04] LABS: Anisocytosis 1+; Hypochromasia 1+; Polychromasia Present
[2018-05-19 14:06] LABS: Iron 26 ug/dL (50-175); Total Iron Binding Capacity 253 ug/dL (250-450); Transferrin Sat 10 % (15-50)
[2018-05-19 14:08] LABS: ALT 74 U/L (12-78); AST 43 U/L (15-37); Albumin 2.9 g/dL (3.4-5.0); Alkaline Phosphatase 136 U/L (46-116); Anion Gap 13.3 mmol/L (3-11); BUN 19 mg/dL (7-18); Bilirubin, Total 0.2 mg/dL (0.2-1.0); CO2 20.7 mmol/L (21.0-32.0); CREATININE 0.61 mg/dL (0.55-1.02); Calcium 7.9 mg/dL (8.5-10.1); Chloride 105 mmol/L (98-107); Glucose 96 mg/dL (70-100); Magnesium 1.6 mg/dL (1.8-2.4); PHOSPHORUS 3.3 mg/dL (2.6-4.7); Potassium 3.8 mmol/L (3.5-5.1); Sodium 139 mmol/L (136-145); Total Protein 6.9 g/dL (6.4-8.2)
[2018-05-19 14:29] LABS: Vitamin D 25 Total 25.9 ng/ml (30-100)
[2018-05-19 14:48] LABS: Ferritin 185 ng/mL (8-388); Folate 16.1 ng/mL (8.6-20.0); Triglyceride 83 mg/dL (30-150); Vitamin B12 406 pg/mL (193-986)
[2018-05-20 10:56] LABS: Prealbumin 19 mg/dL (20-40)
[2018-05-20 21:05] LABS: Copper, Serum <0.10 mcg/mL (0.75-1.45); Selenium, Serum 64 ng/mL (70-150)
[2018-05-21 10:08] LABS: Zinc, Serum 0.66 mcg/mL (0.66-1.10)
[2018-05-21 10:16] LABS: Thiamine (Vitamin B1), WB 167 nmol/L (70-180)
[2018-05-21 14:42] LABS: Chromium, Serum 0.2 ng/mL (<0.3)
[2018-05-22 08:38] LABS: Vitamin E, Serum 6.1 mg/L (5.5 - 17.0)
[2018-05-23 12:11] LABS: Manganese, Serum <1.0 ng/mL (<2.4)
== END 2018-05-22 23:59 | disposition home or self-care (01) ==
LOC: INF 01:03
PROVIDERS: Internal Medicine Gastroenterology; PCP Family Medicine; Visit Provider Internal Medicine
DX: K91.2 Postsurgical malabsorption, not elsewhere classified (principal); E03.9 Hypothyroidism, unspecified; Z45.2 Encounter for adjustment and management of vascular access device
CPT/HCPCS: 36592; 80053; 82306; 96365; 82495; 82525; 82607; 82728; 82746; 83540; 83550; 83735; 83785; 84100; 84134; 84255; 84425; 84439; 84446; 84478; 84480; 84590; 84630; 85025; J1756

== ENCOUNTER 2018-05-27 11:24 | Observation (INO) | payer BC, SELFPAY ==
[2018-05-27 11:31] VITALS: BP 108/67; PULSE 104; RESP 16; TEMP 36.7; O2SAT 99
--- NOTE | 2018-05-27 12:03 | ED.GENADUL_ITS ---
Discharge Plan Disposition Patient Disposition: [facility] INPATIENT Condition: Stable Discharge Details Chief Complaint: Fever Clinical Impression: Neutropenia Primary Care Provider: Robbie Philippe ED Provider: Quinton Hernandez Home Meds and New Rx's Prescriptions: No Action levothyroxine 125 MCG tablet 2 tab PO DAILY AM RF: 0 Fluticasone/Salmeterol [Advair 250-50 Diskus] 1 EACH Blst.W.Dev 1 puff IN BID RF: 0 loperamide 2 MG capsule 6 mg PO PRN PRNRF: 0 prochlorperazine maleate 5 MG tablet 1 tab PO DAILY RF: 0 pantoprazole [Protonix] 20 MG tablet,delayed release (DR/EC) 20 mg PO BID RF: 0 multivitamin Tablet 1 tab PO DAILY RF: 0 biotin 1 mg Tablet 1 tab PO DAILY RF: 0 Medical Decision Making <Edvin Walker MD - Last Filed: 05/27/18 19:21> 52-year-old female presents with new and recent unexplained neutropenia. Sore throat since Saturday and last night with fever per her report. Routine labs 05/23 with ANC of 850. Patient arrives with a temp of 36.7, pulse 104, blood pressure 108/67 in no acute distress. On exam she has right upper extremity indwelling PICC line. Screening labs including blood cultures, lactic acid, influenza screening strep screening, chest x-ray and urinalysis obtained. The patient has a total white blood cell count of 1.9 with an ANC of 0.41. Lactate 3.9. Urinalysis notes trace leuk esterase, 10-20 white blood cells and few bacteria. Rapid strep and influenza screen negative. Chest x-ray without focal infiltrate. Review of records reveal an ANC has been falling since the end of March. Given her subj report of fever at home, evidence of UTI, ANC < 500, and elevated lactate, the patients case was discussed with on-[place] [facility] [facility] Olivo and I reviewed her history, medications and laboratories. [place] [facility] [place] Olivo accepts the patient in transfer but no available bed at this time. I also discussed the case with on-call at [facility] as well and patient also accepted in transfer but also no bed available this evening. Patient to board in ED pending placement to appropriate facility tomorrow. HPI <Edvin Walker MD - Last Filed: 05/27/18 19:21> General Mode of arrival: ambulatory . Date/Time Provider Initiated Documentation: 05/27/18 11:32 . Limitations to Documentation: no limitations . Information obtained by: patient . History of Present Illness 52 year old F presents to the emergency department with the chief complaint of Fever, report of recent neutropenia, sore throat and earache, described as moderate, Quality is described as dull, Patient reports no radiation. Patient started experiencing this hour(s) and it has been constant. No relieving factors improve symptom(s), No exacerbating factors reported . Related Data Home Medications Medication Instructions Recorded Confirmed Fluticasone/Salmeterol [Advair 1 puff IN BID 03/04/17 05/27/18 250-50 Diskus] levothyroxine 2 tab PO DAILY AM 03/04/17 05/27/18 loperamide 6 mg PO PRN PRN 11/04/17 05/27/18 pantoprazole [Protonix] 20 mg PO BID 11/04/17 05/27/18 prochlorperazine maleate 1 tab PO DAILY 11/04/17 05/27/18 biotin 1 tab PO DAILY 05/27/18 05/27/18 multivitamin 1 tab PO DAILY 05/27/18 05/27/18 Allergies Allergy/AdvReac Type Severity Reaction Status Date / Time amoxicillin Allergy Hives Unverified 05/27/18 11:34 adhesive tape AdvReac Skin Rash Unverified 05/27/18 11:34 codeine AdvReac Nausea Unverified 05/27/18 11:34 exenatide [From Byetta] AdvReac Unverified 05/27/18 11:34 morphine AdvReac Nausea Unverified 05/27/18 11:34 General Stated Complaint: Fever COURTNEY: 2 Review of Systems <Edvin Walker MD - Last Filed: 05/27/18 19:21> Review of Systems 6 systems reviewed and otherwise negative Exam <Edvin Walker MD - Last Filed: 05/27/18 19:21> Narrative Exam Narrative: GEN: awake, alert, oriented 3. Pleasant, well groomed, interactive. HEAD: Normocephalic, atraumatic ENT: Mucous membranes moist, oropharynx unremarkable, External ear exam unremarkable EYES: PERRL, EOMI NECK: Full ROM, no ROMELIA, no menigismus CHEST/RESP: Nontender, clear to auscultation bilateral, no wheeze/rhonchi/rales CARDIOVASCULAR: RRR, no murmur, rub carmen. 2+ Rad pulse bilateral ABDOMEN: Soft, nontender, no mass. +Bowel sounds EXT: Full ROM, no edema, no rash Neuro: Grossly normal neurologic exam, conversant, interactive. Psych: Speech fluent, thoughts congruent, affect normal Course <Edvin Walker MD - Last Filed: 05/27/18 19:21> Vital Signs Temperature 36.7 C 05/27/18 11:31 Pulse 104 H 05/27/18 11:31 Respiratory Rate 16 05/27/18 11:31 Blood Pressure 108/67 05/27/18 11:31 Pulse Oximetry 99 05/27/18 11:31 Temperature 36.7 C 05/27/18 11:31 Temperature Source Skin 05/27/18 11:31 Pulse 104 H 05/27/18 11:31 Respiratory Rate 16 05/27/18 11:31 Respiratory Effort Short of Breath 05/27/18 11:31 Blood Pressure 108/67 05/27/18 11:31 Blood Pressure Position Sitting 05/27/18 11:31 Pulse Oximetry 99 05/27/18 11:31 Oxygen Delivery Method Room Air 05/27/18 11:31 Oxygen Flow Rate 0 05/27/18 11:31 Pain Level 5 05/27/18 11:31 Sign Out <Edvin Walker MD - Last Filed: 05/27/18 19:21> Sign Out Data: Sign Out Comment: [facility] [place] vs [facility] in AM for neutropenic fever. Recheck lactate 10pm, continue Cefepinme q12 and Vancomycin q24 Last updated by Edvin Walker MD at 05/27/18 18:53 Post-Handoff Eval: pt remains HD stable, HR in the 70's and BP 120/70. A[facility] [place] [facility] [place] per Dr. Walker. We did have a medical bed open up here, case discussed with Dr. Florez who will admit to the med/surge floor until tertiary care can accept him
--- NOTE | 2018-05-27 12:07 | DI.RAD_ITS ---
SYMPTOMS/DIAGNOSIS: FEVER, RECENT NEUTROPENIA PA AND LATERAL CHEST: Comparison is made with portable chest dated September,. The cardiac and mediastinal contours have a normal appearance. A PICC line is seen from the right arm extending into the upper right atrium. The lungs are moderately well inflated and appear clear. IMPRESSION: PICC line. No acute abnormality.
[2018-05-27 12:24] LABS: Bilirubin Negative (Negative); Blood Negative (Negative); Clarity Clear; Glucose Negative (Negative); Ketones Trace mg/dL (Negative); Leukocyte Esterase Trace (Negative); Nitrite Negative (Negative); Specific Gravity 1.025 (1.005-1.025); Urobilinogen 0.2 EU/dL (Up TO 0.2); pH 5.5 (5-8)
[2018-05-27 12:35] VITALS: BP 112/74; PULSE 84; RESP 18; TEMP 36.7; O2SAT 98
[2018-05-27 12:36] LABS: Bacteria Few HPF (Negative); C & S Indicated? Yes; Casts Negative LPF (Negative); Crystals Many Calcium Oxalate HPF (Negative); Epithelial Cells Few HPF (Negative); Mucus Moderate (Negative); RBC Negative (0-2)
[2018-05-27] MEDS: Normal Saline 1,000 ML 1000 ML IV (12:46)
[2018-05-27 12:52] LABS: HGB 8.2 g/dL (12.0-15.5); Mean Corp. HGB Concentration 30.4 g/dL (32.0-36.0); Mean Corpuscular Hemoglobin 31.1 pg (27.0-33.0); Mean Corpuscular Volume 102.3 fL (80-95); Mean Platelet Volume 9.8 fL (8.0-11.0); Platelet Count 340 x1000/uL (130-400); RBC 2.64 m/cumm (4.00-5.20); RBC Distribution Width 16.1 % (11.7-14.6)
[2018-05-27 12:54] LABS: Lactate-non-spesis 3.9 mmol/l (0.6-1.4)
[2018-05-27 13:06] LABS: ALT 82 U/L (12-78); AST 64 U/L (15-37); Albumin 2.8 g/dL (3.4-5.0); Alkaline Phosphatase 129 U/L (46-116); Anion Gap 9.8 mmol/L (3-11); BUN 20 mg/dL (7-18); Bilirubin, Total 0.3 mg/dL (0.2-1.0); CO2 26.2 mmol/L (21.0-32.0); CREATININE 0.63 mg/dL (0.55-1.02); Calcium 8.6 mg/dL (8.5-10.1); Chloride 103 mmol/L (98-107); Glucose 92 mg/dL (70-100); Potassium 3.7 mmol/L (3.5-5.1); Sodium 139 mmol/L (136-145); Total Protein 6.5 g/dL (6.4-8.2)
[2018-05-27 13:15] LABS: White Blood Cell Count 1.95 k/cumm (4.4-10.8)
[2018-05-27 13:16] LABS: Absolute Neutrophil Count 0.41 k/cumm (1.2-6.7)
[2018-05-27 13:17] LABS: Absolute Basophil Count 0.06 k/cumm (0.0-0.2); Absolute Eosinophil Count 0.08 k/cumm (0.0-0.7); Absolute Lymphocyte Count 1.03 k/cumm (1.2-3.4); Absolute Monocyte Count 0.37 k/cumm (0.11-0.7); Anisocytosis 2+; Atypical Lymphocytes % 2; Diff Comment Manual Differential; Hypochromasia 1+; Macrocytosis 1+; Poikilocytes 1+; Polychromasia Present
[2018-05-27 14:10] VITALS: BP 109/67; PULSE 88; RESP 16; TEMP 36.6; O2SAT 99
[2018-05-27] MEDS: Lactated Ringers 1,000 ML 150 ML IV (15:08)
[2018-05-27 15:12] LABS: Lactate-non-spesis 3.8 mmol/l (0.6-1.4)
[2018-05-27] MEDS: CEFEPIME 2 GM in Normal Saline 100 ML IVPB (16:14)
[2018-05-27 16:54] VITALS: BP 111/62; PULSE 73; RESP 18; TEMP 36.8; O2SAT 98
[2018-05-27 18:05] VITALS: BP 118/79; PULSE 83; RESP 18; TEMP 37.2; O2SAT 98
--- NOTE | 2018-05-27 18:11 | NUR.NOTE ---
Nursing Note: Taking own Loperimde for Diarrhea per her own schedule. QID
[2018-05-27 21:22] VITALS: BP 111/63; PULSE 77; RESP 18; TEMP 36.8; O2SAT 96
[2018-05-27 21:29] LABS: Lactate-non-spesis 3.9 mmol/l (0.6-1.4)
--- NOTE | 2018-05-27 23:27 | W.PM.HP.N ---
Date of service: 05/27/18 Time of Service: 23:30 Assessment and Plan (1) Neutropenic fever: Current visit: Yes Status: Acute Neutropenic fever, possible urinary source. line sepsis also to be considered. All in the setting of unexplained neutropenia and anemia. We will continue empiric antibiotics pending cultures and await transfer for for presumably bone marrow biopsy History of Present Illness Chief Complaint: fever Narrative: Patient is a 52-year-old who has been having progressive neutropenia over the last several months. She came to the emergency room tonight because of fever at home. She reports she has had a sore throat for a couple of days, had some transient right ear pain the other day. Here in the emergency room absolute neutrophil count of 410 was noted. Blood cultures were obtained and patient was given vancomycin and cefepime. Patient was accepted at [facility] in transfer but no beds were available. 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 HEENT of note for normal tympanic membranes and no throat lesions or exudate. Neck is supple lungs clear heart regular rate and rhythm with 2/6 systolic murmur at the left sternal border abdomen is soft nontender without hepatosplenomegaly. Pelvic and rectal exams deferred. Extremities without edema. Neurological patient is alert and oriented moves all 4 extremities Laboratory White count is 1.9 with ANC of 410 hematocrit 27 platelets 340 sodium 139 potassium 3.7 chloride 103 bicarb 26 BUN 20 creatinine 0.6 glucose 92 lactate 3.9 AST 64 ALT 82 alk phos 129 urinalysis shows 10-20 white cells chest x-ray negative Review of Systems Review of Systems All systems reviewed & are unremarkable except as noted in HPI and below Meds Home Medications Medication Instructions Recorded Confirmed Type Fluticasone/Salmeterol [Advair 1 puff IN BID 03/04/17 05/27/18 History 250-50 Diskus] levothyroxine 2 tab PO DAILY AM 03/04/17 05/27/18 History loperamide 6 mg PO PRN PRN 11/04/17 05/27/18 History pantoprazole [Protonix] 20 mg PO BID 11/04/17 05/27/18 History prochlorperazine maleate 1 tab PO DAILY 11/04/17 05/27/18 History biotin 1 tab PO DAILY 05/27/18 05/27/18 History multivitamin 1 tab PO DAILY 05/27/18 05/27/18 History Allergies Allergy/AdvReac Type Severity Reaction Status Date / Time amoxicillin Allergy Hives Unverified 05/27/18 11:34 adhesive tape AdvReac Skin Rash Unverified 05/27/18 11:34 codeine AdvReac Nausea Unverified 05/27/18 11:34 exenatide [From [place]] AdvReac Unverified 05/27/18 11:34 morphine AdvReac Nausea Unverified 05/27/18 11:34 Results Labs : 05/27/18 12:35 05/27/18 12:35 Laboratory Results - last 24 hr 05/27/18 05/27/18 05/27/18 12:10 12:35 12:35 WBC RBC Hgb Hct MCV MCH MCHC RDW Plt Count MPV Immature Gran % Neutrophils % Lymphocytes % Atypical Lymphs % Monocytes % Eosinophils % Basophils % Absolute Neutrophils Absolute Lymphocytes Absolute Monocytes Absolute Eosinophils Absolute Basophils Differential Comment RBC Morphology Polychromasia Hypochromasia Poikilocytosis Anisocytosis Macrocytosis Sodium 139 Potassium 3.7 Chloride 103 Carbon Dioxide 26.2 Anion Gap 9.8 BUN 20 H Creatinine 0.63 Estimated GFR/1.73 m2 >= 60.00 Glucose 92 Lactate 3.9 H Calcium 8.6 Total Bilirubin 0.3 AST 64 H ALT 82 H Alkaline Phosphatase 129 H Total Protein 6.5 Albumin 2.8 L Urine Color Yellow Urine Clarity Clear Urine pH 5.5 Ur Specific [place] 1.025 Urine Protein Negative Urine Ketones Trace H Urine Blood Negative Urine Nitrite Negative Urine Bilirubin Negative Urine Urobilinogen 0.2 Ur Leukocyte Esterase Trace H Urine RBC Negative Urine WBC 10-20 Ur Epithelial Cells Few Urine Crystals Many calcium oxalate Urine Bacteria Few Urine Casts Negative Urine Mucus Moderate Ur Culture Indicated? Yes Urine Glucose Negative 05/27/18 05/27/18 05/27/18 12:35 15:00 21:20 WBC 1.95 L* RBC 2.64 L Hgb 8.2 L Hct 27.0 L MCV 102.3 H MCH 31.1 MCHC 30.4 L RDW 16.1 H Plt Count 340 MPV 9.8 Immature Gran % 0.0 Neutrophils % 21.0 Lymphocytes % 51.0 Atypical Lymphs % 2 Monocytes % 19.0 Eosinophils % 4.0 Basophils % 3.0 Absolute Neutrophils 0.41 L* Absolute Lymphocytes 1.03 L Absolute Monocytes 0.37 Absolute Eosinophils 0.08 Absolute Basophils 0.06 Differential Comment Manual differential RBC Morphology See below Polychromasia Present Hypochromasia 1+ Poikilocytosis 1+ Anisocytosis 2+ Macrocytosis 1+ Sodium Potassium Chloride Carbon Dioxide Anion Gap BUN Creatinine Estimated GFR/1.73 m2 Glucose Lactate 3.8 H 3.9 H Calcium Total Bilirubin AST ALT Alkaline Phosphatase Total Protein Albumin Urine Color Urine Clarity Urine pH Ur Specific [place] Urine Protein Urine Ketones Urine Blood Urine Nitrite Urine Bilirubin Urine Urobilinogen Ur Leukocyte Esterase Urine RBC Urine WBC Ur Epithelial Cells Urine Crystals Urine Bacteria Urine Casts Urine Mucus Ur Culture Indicated? Urine Glucose Last Vital Signs Temp 36.8 C 05/27/18 21:22 Pulse 77 05/27/18 21:22 Resp 18 05/27/18 21:22 BP 111/63 05/27/18 21:22 Pulse Ox 96 05/27/18 21:22
[2018-05-28] VITALS (12 sets, daily range): BP systolic 91–109; BP diastolic 63–71; PULSE 62–79; RESP 16–20; TEMP 35.8–37; O2SAT 94–98
[2018-05-28] MEDS: Lactated Ringers 1,000 ML 150 ML IV (04:28)
[2018-05-28] MEDS: Loperamide 2 MG CAP 8 MG PO ×3 (04:30→16:52)
[2018-05-28] MEDS: Levothyroxine 125 MCG TAB 250 MCG PO (05:37)
[2018-05-28] MEDS: CEFEPIME 2 GM in Normal Saline 100 ML IVPB (05:38)
[2018-05-28] MEDS: VANCOMYCIN 1,000 MG in Normal Saline 250 ML 166.6666 MG IVPB (07:09)
[2018-05-28] MEDS: Water,Injection,Bacteriostatic 30 ML VIAL (07:09)
[2018-05-28 07:37] LABS: Absolute Basophil Count 0.09 k/cumm (0.0-0.2); Absolute Eosinophil Count 0.22 k/cumm (0.0-0.7); Absolute Lymphocyte Count 0.86 k/cumm (1.2-3.4); Absolute Neutrophil Count 0.54 k/cumm (1.2-6.7); Basophils % 4.1; Lymphocytes % 38.9; Mean Corp. HGB Concentration 29.6 g/dL (32.0-36.0); Mean Corpuscular Hemoglobin 30.6 pg (27.0-33.0); Mean Corpuscular Volume 103.2 fL (80-95); Monocytes % 22.6; Neutrophils % 24.4; Platelet Count 285 x1000/uL (130-400); RBC 2.19 m/cumm (4.00-5.20); RBC Distribution Width 16.7 % (11.7-14.6)
[2018-05-28] MEDS: Prochlorperazine 5 MG TAB PO (07:44)
[2018-05-28] MEDS: Multivitamin TAB 1 TAB PO (07:44)
[2018-05-28] MEDS: Pantoprazole 20 MG TABCR PO (07:44)
[2018-05-28 07:49] LABS: HCT 22.6 % (36.0-46.0); HGB 6.7 g/dL (12.0-15.5); White Blood Cell Count 2.21 k/cumm (4.4-10.8)
[2018-05-28 08:13] LABS: Anisocytosis 2+; Hypochromasia 1+
[2018-05-28 08:14] LABS: Macrocytosis 1+
[2018-05-28 11:04] LABS: Iron 21 ug/dL (50-175); Total Iron Binding Capacity 185 ug/dL (250-450); Transferrin Sat 11 % (15-50)
--- NOTE | 2018-05-28 11:05 | PDOC.CMIN ---
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 She is the primary caregiver for her parents as well. She is independent with ADLs in the community. CURRENT FUNCTIONAL STATUS:: Lacie is on reverse precautions, admitted pending bed availability at [facility]. She is pleasant in interaction. Her is at her bedside, she reports no concerns at this time and anticipates she will transfer tonight. ADVANCE DIRECTIVES:: None on file. Has patient been provided with information about the portal?: Yes Did the patient sign up for the portal?: No CODE STATUS:: Full Code INSURANCE COVERAGE / FINANCIAL ISSUES:: BC/BS Other CURRENT HOME/COMMUNITY SERVICES/EQUIPMENT:: NCCC: attends infusion room at [facility]. PRIMARY CARE PHYSICIAN:: Robbie Philippe MD. POTENTIAL DISCHARGE NEEDS:: Transfer coordination. PATIENT/FAMILY EDUCATION NEEDS:: Review of discharge instructions, discuss Ask Me Three. ANTICIPATED BARRIERS TO DISCHARGE:: Bed availability at [facility]; [facility] at [facility] [place] [facility] [place]SP[place]ATION:: EMS Acute to Acute; Coordinated by NS PLAN:: Admitted pending transfer. CM will continue to follow.
[2018-05-28 11:26] LABS: Ferritin 123 ng/mL (8-388); Magnesium 1.7 mg/dL (1.8-2.4); Vitamin B12 228 pg/mL (193-986)
--- NOTE | 2018-05-28 11:34 | PHARADMIT ---
Admission Pharmacy Clinical Review NEUROPENIA, FEVER (short Gut syndrome) r/O TICK,THRUSH, STREP Code Status Full Code Current Weight Wgt-63kg Renally Cleared and Narrow Therapeutic Index Meds CrCl~ 71.84 mL.min Meds-OK QTc Value / Action Taken QTc-442 na BP Control, Fever BP- 99/65 Tmax- 37.0C Electrolytes reviewed Na-139 K+3.7 Mag-1.7 DVT Prophylaxis No Opiate Usage / Scheduled Bowel Regimen Ordered No no Plt/SCr for Heparin / Enoxaparin Plts-285 SCr0.63 INR for Warfarin na H/H stable, WBC/Bands H&H- 6.7/22.6 WBC- 2.21 ANC- 0.54 Antibiotic appropriateness Cefepime,Vancomycin Cultures and Sensitivities Blood-pending, Urine_E-coli, Strep-pending, Flu-neg Surgical ABX d/c within 24 hr na DM control / Insulin Dosing BG-92 Heart Failure (Check EF%) (MARCELLUS's, B-Block, Diuretics) none IV to PO Switch No Home Meds Reviewed Yes Home Meds Not Ordered Symbicort for Advair Comments PatOwn- GATTEX (Tedugluteride) inj PatOwn- Biotin
[2018-05-28 11:39] LABS: Lactate-non-spesis 3.7 mmol/l (0.6-1.4)
[2018-05-28 11:45] LABS: Mono Screening Negative (Negative)
--- NOTE | 2018-05-28 11:50 | INITIAL_ITS ---
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 She is the primary caregiver for her parents as well. She is independent with ADLs in the community. CURRENT FUNCTIONAL STATUS:: Lacie is on reverse precautions, admitted pending bed availability at [facility]. She is pleasant in interaction. Her is at her bedside, she reports no concerns at this time and anticipates she will transfer tonight. ADVANCE DIRECTIVES:: None on file. Has patient been provided with information about the portal?: Yes Did the patient sign up for the portal?: No CODE STATUS:: Full Code INSURANCE COVERAGE / FINANCIAL ISSUES:: BC/BS Other CURRENT HOME/COMMUNITY SERVICES/EQUIPMENT:: NCCC: attends infusion room at [facility]. PRIMARY CARE PHYSICIAN:: Robbie Philippe MD. POTENTIAL DISCHARGE NEEDS:: Transfer coordination. PATIENT/FAMILY EDUCATION NEEDS:: Review of discharge instructions, discuss Ask Me Three. ANTICIPATED BARRIERS TO DISCHARGE:: Bed availability at [facility]; accepted at both [facility] [place] [facility] [place]SP[place]ATION:: EMS Acute to Acute; Coordinated by NS PLAN:: Admitted pending transfer. CM will continue to follow.
[2018-05-28] MEDS: Normal Saline 1,000 ML 100 ML IV (12:23)
[2018-05-28] MEDS: Acetaminophen 325 MG TAB 650 MG PO (13:43)
[2018-05-28] MEDS: diphenhydrAMINE 25 MG CAP PO (13:43)
--- NOTE | 2018-05-28 14:52 | CHAPLAIN ---
I had short visit with Lacie shortly before she was being discharged to [facility]. Her spouse was with her and seems supportive.
--- NOTE | 2018-05-28 16:35 | W.PM.DS.N ---
Date of service: 05/28/18 Time of Service: 16:35 DS: Diagnosis Discharge Diagnosis (1) Neutropenic fever: Status: Acute (2) Acute leukemia: Status: Suspected (3) Anemia: Status: Acute (4) Short gut syndrome: Status: Chronic (5) Lactic acidosis: Status: Acute (6) Hypomagnesemia: Status: Acute (7) Pharyngitis: Status: Acute Discharge Plan Disposition Patient Disposition: [facility] Condition: Stable Discharge Details Reason For Visit: NEUTROPENIA, FEVER Admit Date/Time: 05/27/18 23:39 Admit Provider: Robbie Florez Attending Provider: Robbie Florez Primary Care Provider: Robbie Philippe Hospital Course Hospital Course: Ms Nunez is a 52 year old female with PMHx of short-gut syndrome post necrotic bowel as well as asthma, hypothyroidism, and GERD, admitted to [facility] on 05/27/18 (as there was no bed available at [facility] where it was felt that she would truly benefit from being admitted) who presented to the ED with fever, found to be neutropenic and anemic. She does not have a history of cancer. Her only other complaint was a sore throat. She tested negative for influenza as well as strep, and her monospot was negative. She required transfusion of 1 unit of pRBC's. Her WBC did improve slightly, though she remains neutropenic (ANC of 0.54 from 0.41). She does have a PICC line (for home TPN which she gets three times a week), which was cultured, and the results are not yet available. Her peripheral blood cultures have shown no growth to date. Her UA was negative for a UTI. At this point, there is a strong suspicion that the reason the patient developed these hematologic abnormalities is due to an acute leukemia (suspicion based on presence of 22.6% monocytes on the differential). She is accepted at [facility] by Dr Olivo of hematology for workup of her new onset neutropenia, anemia, suspected lymphoma, including a bone marrow biopsy, which we do not have available at [facility]. Home Meds and New Rx's Prescriptions: New loperamide 2 mg Capsule 8 mg PO Q4H Qty: 0 RF: 0 cefepime 2 gram Recon Soln 2 g IVPB Q12H Qty: 0 RF: 0 cyanocobalamin (vitamin B-12) [Vitamin B-12] 500 mcg Tablet 1,000 mcg PO DAILY Qty: 0 RF: 0 magnesium chloride [Mag 64] 64 mg Tablet,Delayed Release (Dr/Ec) 64 mg PO BID Qty: 0 RF: 0 Continued levothyroxine 125 MCG tablet 2 tab PO DAILY AM RF: 0 Fluticasone/Salmeterol [Advair 250-50 Diskus] 1 EACH Blst.W.Dev 1 puff IN BID RF: 0 prochlorperazine maleate 5 MG tablet 1 tab PO DAILY RF: 0 pantoprazole [Protonix] 20 MG tablet,delayed release (DR/EC) 20 mg PO BID RF: 0 multivitamin Tablet 1 tab PO DAILY RF: 0 biotin 1 mg Tablet 1 tab PO DAILY RF: 0 No Action loperamide 2 MG capsule 6 mg PO PRN PRNRF: 0 Discharge Instructions Activity:: Activity as Tolerated Equipment/Supplies:: No Equipment Needed Diet:: As Tolerated Discharge Orders Discharge Orders: Discharge Order (Routine); Ordered 05/28/18 Ordered By: Jannet Griffiths Exam Narrative Exam Narrative: General: A&Ox3, NAD, pale, laying comfortably in bed HEENT: EOMI, MMM, +pharyngeal erythema; no evidence of thrush Heart: RRR, +PRIYA Lungs: CTAB GI: abdomen is soft, nontender, nondistended Extremities: no e/c/c BLE's, RUE PICC line in place DS: Data Vitals/I&O Vitals and I&O: Vital Signs Temperature 36.5 C 05/28/18 14:30 Temperature Source Tympanic 05/28/18 14:05 Pulse 74 05/28/18 14:30 Pulse Rhythm Regular 05/28/18 07:36 Respiratory Rate 20 05/28/18 14:30 Respiratory Effort 05/28/18 07:36 Respiratory Depth Normal 05/28/18 07:36 Respiratory Pattern Normal 05/28/18 07:36 Blood Pressure 102/65 05/28/18 14:30 Blood Pressure Position Sitting 05/27/18 11:31 Pulse Oximetry 95 05/28/18 14:30 Oxygen Delivery Method Room Air 05/28/18 14:30 Oxygen Flow Rate 0 05/28/18 14:30 Pain Level 0 05/28/18 03:30 Comment 03/06/19 03:30 Intake & Output 05/27/18 05/28/18 05/28/18 23:59 11:59 23:59 Intake Total 2570 / 2570 1025 / 2090 1065 / 2090 Output Total 1500 / 1700 200 / 1700 Balance 2570 / 2570 -475 / 390 865 / 390 Weight 63.049 kg Intake: IV 2300 / 2300 675 / 1260 585 / 1260 Oral 270 / 270 350 / 830 480 / 830 Output: Urine 1500 / 1700 200 / 1700 Other: Urine Color Yellow Yellow Urine Appearance Cloudy Clear Urine Odor Normal Normal Stool Occult Blood Positive Stool Size Large Stool Characteristics Soft Liquid Brown Voiding Methods Toilet Toilet Completed studies during hospitalization [Text1]: CXR 05/27/18: PICC line. No acute abnormality. Labs on day of discharge: Labs from last 24 hours 05/28/18 05/28/18 05/28/18 11:23 11:23 11:23 WBC RBC Hgb Hct MCV MCH MCHC RDW Plt Count MPV Immature Gran % Neutrophils % Lymphocytes % Monocytes % Eosinophils % Basophils % Absolute Neutrophils Absolute Lymphocytes Absolute Monocytes Absolute Eosinophils Absolute Basophils Differential Comment RBC Morphology Hypochromasia Anisocytosis Macrocytosis Lactate Magnesium Iron TIBC Transferrin % Sat Ferritin Vitamin B12 Folate EBV DNA, Quant Pending Monoscreen Negative Patient ABO/Rh O Positive Antibody Screen Negative Crossmatch See Detail 05/28/18 05/28/18 05/28/18 11:23 07:00 07:00 WBC RBC Hgb Hct MCV MCH MCHC RDW Plt Count MPV Immature Gran % Neutrophils % Lymphocytes % Monocytes % Eosinophils % Basophils % Absolute Neutrophils Absolute Lymphocytes Absolute Monocytes Absolute Eosinophils Absolute Basophils Differential Comment RBC Morphology Hypochromasia Anisocytosis Macrocytosis Lactate 3.7 H Magnesium Iron 21 L TIBC 185 L Transferrin % Sat 11 L Ferritin Vitamin B12 Cancelled Folate EBV DNA, Quant Monoscreen Patient ABO/Rh Antibody Screen Crossmatch 05/28/18 05/28/18 05/27/18 07:00 07:00 21:20 WBC 2.21 L RBC 2.19 L Hgb 6.7 L* Hct 22.6 L MCV 103.2 H MCH 30.6 MCHC 29.6 L RDW 16.7 H Plt Count 285 MPV 10.0 Immature Gran % 0.0 Neutrophils % 24.4 Lymphocytes % 38.9 Monocytes % 22.6 Eosinophils % 10.0 Basophils % 4.1 Absolute Neutrophils 0.54 L Absolute Lymphocytes 0.86 L Absolute Monocytes 0.50 Absolute Eosinophils 0.22 Absolute Basophils 0.09 Differential Comment Comment RBC Morphology See below Hypochromasia 1+ Anisocytosis 2+ Macrocytosis 1+ Lactate 3.9 H Magnesium 1.7 L Iron TIBC Transferrin % Sat Ferritin 123 Vitamin B12 228 Folate 13.0 EBV DNA, Quant Monoscreen Patient ABO/Rh Antibody Screen Crossmatch 05/28/18 13:30 Blood Blood Culture - Pending 05/28/18 11:40 Blood Blood Culture - Pending 05/27/18 12:15 Pharynx Streptococcus Screen (HERNAN) - Pending Preliminary micro results at discharge 05/27/18 12:47 Blood Culture - Preliminary Blood NO GROWTH 24 HOURS 05/27/18 12:35 Blood Culture - Preliminary Blood NO GROWTH 24 HOURS 05/28/18 13:30 Blood Culture - Pending Blood 05/28/18 11:40 Blood Culture - Pending Blood 05/27/18 12:10 Urine Culture - Preliminary Urine - Reflex from Ua Escherichia coli 05/27/18 12:15 Streptococcus Screen (HERNAN) - Pending Pharynx
--- NOTE | 2018-05-28 16:44 | DSE_ITS ---
Date of service: 05/28/18 Time of Service: 16:35 DS: Diagnosis Discharge Diagnosis (1) Neutropenic fever: Status: Acute (2) Acute leukemia: Status: Suspected (3) Anemia: Status: Acute (4) Short gut syndrome: Status: Chronic (5) Lactic acidosis: Status: Acute (6) Hypomagnesemia: Status: Acute (7) Pharyngitis: Status: Acute Discharge Plan Disposition Patient Disposition: [facility] Condition: Stable Discharge Details Reason For Visit: NEUTROPENIA, FEVER Admit Date/Time: 05/27/18 23:39 Admit Provider: Robbie Florez Attending Provider: Robbie Florez Primary Care Provider: Robbie Philippe Hospital Course Hospital Course: Ms Nunez is a 52 year old female with PMHx of short-gut syndrome post necrotic bowel as well as asthma, hypothyroidism, and GERD, admitted to [facility] on 05/27/18 (as there was no bed available at [facility] where it was felt that she would truly benefit from being admitted) who presented to the ED with fever, found to be neutropenic and anemic. She does not have a history of cancer. Her only other complaint was a sore throat. She tested negative for influenza as well as strep, and her monospot was negative. She required transfusion of 1 unit of pRBC's. Her WBC did improve slightly, though she remains neutropenic (ANC of 0.54 from 0.41). She does have a PICC line (for home TPN which she gets three times a week), which was cultured, and the results are not yet available. Her peripheral blood cultures have shown no growth to date. Her UA was negative for a UTI. At this point, there is a strong suspicion that the reason the patient developed these hematologic abnormalities is due to an acute leukemia (suspicion based on presence of 22.6% monocytes on the differential). She is accepted at [facility] by Dr Olivo of hematology for workup of her new onset neutropenia, anemia, suspected lymphoma, including a bone marrow biopsy, which we do not have available at [facility]. Home Meds and New Rx's Prescriptions: New loperamide 2 mg Capsule 8 mg PO Q4H Qty: 0 RF: 0 cefepime 2 gram Recon Soln 2 g IVPB Q12H Qty: 0 RF: 0 cyanocobalamin (vitamin B-12) [Vitamin B-12] 500 mcg Tablet 1,000 mcg PO DAILY Qty: 0 RF: 0 magnesium chloride [Mag 64] 64 mg Tablet,Delayed Release (Dr/Ec) 64 mg PO BID Qty: 0 RF: 0 Continued levothyroxine 125 MCG tablet 2 tab PO DAILY AM RF: 0 Fluticasone/Salmeterol [Advair 250-50 Diskus] 1 EACH Blst.W.Dev 1 puff IN BID RF: 0 prochlorperazine maleate 5 MG tablet 1 tab PO DAILY RF: 0 pantoprazole [Protonix] 20 MG tablet,delayed release (DR/EC) 20 mg PO BID RF: 0 multivitamin Tablet 1 tab PO DAILY RF: 0 biotin 1 mg Tablet 1 tab PO DAILY RF: 0 No Action loperamide 2 MG capsule 6 mg PO PRN PRNRF: 0 Discharge Instructions Activity:: Activity as Tolerated Equipment/Supplies:: No Equipment Needed Diet:: As Tolerated Discharge Orders Discharge Orders: Discharge Order (Routine); Ordered 05/28/18 Ordered By: Jannet Griffiths Exam Narrative Exam Narrative: General: A&Ox3, NAD, pale, laying comfortably in bed HEENT: EOMI, MMM, +pharyngeal erythema; no evidence of thrush Heart: RRR, +PRIYA Lungs: CTAB GI: abdomen is soft, nontender, nondistended Extremities: no e/c/c BLE's, RUE PICC line in place DS: Data Vitals/I&O Vitals and I&O: Vital Signs Temperature 36.5 C 05/28/18 14:30 Temperature Source Tympanic 05/28/18 14:05 Pulse 74 05/28/18 14:30 Pulse Rhythm Regular 05/28/18 07:36 Respiratory Rate 20 05/28/18 14:30 Respiratory Effort 05/28/18 07:36 Respiratory Depth Normal 05/28/18 07:36 Respiratory Pattern Normal 05/28/18 07:36 Blood Pressure 102/65 05/28/18 14:30 Blood Pressure Position Sitting 05/27/18 11:31 Pulse Oximetry 95 05/28/18 14:30 Oxygen Delivery Method Room Air 05/28/18 14:30 Oxygen Flow Rate 0 05/28/18 14:30 Pain Level 0 05/28/18 03:30 Comment 03/06/19 03:30 Intake & Output 05/27/18 05/28/18 05/28/18 23:59 11:59 23:59 Intake Total 2570 / 2570 1025 / 2090 1065 / 2090 Output Total 1500 / 1700 200 / 1700 Balance 2570 / 2570 -475 / 390 865 / 390 Weight 63.049 kg Intake: IV 2300 / 2300 675 / 1260 585 / 1260 Oral 270 / 270 350 / 830 480 / 830 Output: Urine 1500 / 1700 200 / 1700 Other: Urine Color Yellow Yellow Urine Appearance Cloudy Clear Urine Odor Normal Normal Stool Occult Blood Positive Stool Size Large Stool Characteristics Soft Liquid Brown Voiding Methods Toilet Toilet Completed studies during hospitalization [Text1]: CXR 05/27/18: PICC line. No acute abnormality. Labs on day of discharge: Labs from last 24 hours 05/28/18 05/28/18 05/28/18 11:23 11:23 11:23 WBC RBC Hgb Hct MCV MCH MCHC RDW Plt Count MPV Immature Gran % Neutrophils % Lymphocytes % Monocytes % Eosinophils % Basophils % Absolute Neutrophils Absolute Lymphocytes Absolute Monocytes Absolute Eosinophils Absolute Basophils Differential Comment RBC Morphology Hypochromasia Anisocytosis Macrocytosis Lactate Magnesium Iron TIBC Transferrin % Sat Ferritin Vitamin B12 Folate EBV DNA, Quant Pending Monoscreen Negative Patient ABO/Rh O Positive Antibody Screen Negative Crossmatch See Detail 05/28/18 05/28/18 05/28/18 11:23 07:00 07:00 WBC RBC Hgb Hct MCV MCH MCHC RDW Plt Count MPV Immature Gran % Neutrophils % Lymphocytes % Monocytes % Eosinophils % Basophils % Absolute Neutrophils Absolute Lymphocytes Absolute Monocytes Absolute Eosinophils Absolute Basophils Differential Comment RBC Morphology Hypochromasia Anisocytosis Macrocytosis Lactate 3.7 H Magnesium Iron 21 L TIBC 185 L Transferrin % Sat 11 L Ferritin Vitamin B12 Cancelled Folate EBV DNA, Quant Monoscreen Patient ABO/Rh Antibody Screen Crossmatch 05/28/18 05/28/18 05/27/18 07:00 07:00 21:20 WBC 2.21 L RBC 2.19 L Hgb 6.7 L* Hct 22.6 L MCV 103.2 H MCH 30.6 MCHC 29.6 L RDW 16.7 H Plt Count 285 MPV 10.0 Immature Gran % 0.0 Neutrophils % 24.4 Lymphocytes % 38.9 Monocytes % 22.6 Eosinophils % 10.0 Basophils % 4.1 Absolute Neutrophils 0.54 L Absolute Lymphocytes 0.86 L Absolute Monocytes 0.50 Absolute Eosinophils 0.22 Absolute Basophils 0.09 Differential Comment Comment RBC Morphology See below Hypochromasia 1+ Anisocytosis 2+ Macrocytosis 1+ Lactate 3.9 H Magnesium 1.7 L Iron TIBC Transferrin % Sat Ferritin 123 Vitamin B12 228 Folate 13.0 EBV DNA, Quant Monoscreen Patient ABO/Rh Antibody Screen Crossmatch 05/28/18 13:30 Blood Blood Culture - Pending 05/28/18 11:40 Blood Blood Culture - Pending 05/27/18 12:15 Pharynx Streptococcus Screen ([facility]NAN) - Pending Preliminary micro results at discharge 05/27/18 12:47 Blood Culture - Preliminary Blood NO GROWTH 24 HOURS 05/27/18 12:35 Blood Culture - Preliminary Blood NO GROWTH 24 HOURS 05/28/18 13:30 Blood Culture - Pending Blood 05/28/18 11:40 Blood Culture - Pending Blood 05/27/18 12:10 Urine Culture - Preliminary Urine - Reflex from Ua Escherichia coli 05/27/18 12:15 Streptococcus Screen (HERNAN) - Pending Pharynx
[2018-05-28] MEDS: Meclizine 12.5 MG TAB PO (17:26)
[2018-05-28] MEDS: Normal Saline Flush 10 ML SYR IVP (17:27)
[2018-05-30 16:13] LABS: EBV DNA Detect/Quant, P Undetected IU/mL (Undetected)
--- NOTE | 2018-05-31 13:02 | NUR.NOTE ---
Nursing Note: At Dr. Chalino Rodriguez's request the CBC w/D pathology report was faxed to Hematology/Oncology @ [facility]. . Racheal Henson.
== END 2018-05-28 17:32 | disposition short-term general hospital (02) ==
LOC: ER 05-28 00:02 → MS 05-28 01:03
PROVIDERS: Emergency Medicine; Internal Medicine; Admitting Provider General Practice; Emergency Provider Emergency Medicine; PCP Family Medicine; Visit Provider General Practice
DX: D70.9 Neutropenia, unspecified (principal); R50.81 Fever presenting with conditions classified elsewhere; D64.9 Anemia, unspecified; K91.2 Postsurgical malabsorption, not elsewhere classified; Z90.49 Acquired absence of other specified parts of digestive tract; E03.9 Hypothyroidism, unspecified; K21.9 Gastro-esophageal reflux disease without esophagitis; E87.2 Acidosis; E83.42 Hypomagnesemia; J02.9 Acute pharyngitis, unspecified
CPT/HCPCS: 36415; 80053; 86850; 86900; 86901; 86920; 87040; 87077; 87449; 87799; 87880; 96361; 96365; 96367; 99222; 99239; 99285; 71046; 81003; 81015; 82607; 82728; 82746; 83540; 83550; 83605; 83735; 85025; 86308; 87081; 87086; 87186; 99219; G0378; P9016

== ENCOUNTER 2018-06-16 01:24 | Outpatient (RCR) | payer BC, SELFPAY ==
[2018-05-26] MEDS: Normal Saline Flush 10 ML SYR IVP (12:30)
[2018-05-26 12:53] LABS: Absolute Monocyte Count 0.49 k/cumm (0.11-0.7); HCT 26.6 % (36.0-46.0); HGB 8.1 g/dL (12.0-15.5); Mean Corp. HGB Concentration 30.5 g/dL (32.0-36.0); Mean Corpuscular Hemoglobin 31.4 pg (27.0-33.0); Mean Corpuscular Volume 103.1 fL (80-95); Platelet Count 397 x1000/uL (130-400); RBC 2.58 m/cumm (4.00-5.20); RBC Distribution Width 16.6 % (11.7-14.6); White Blood Cell Count 2.43 k/cumm (4.4-10.8)
[2018-05-26 13:14] LABS: ALT 69 U/L (12-78); AST 44 U/L (15-37); Albumin 2.8 g/dL (3.4-5.0); Alkaline Phosphatase 132 U/L (46-116); Anion Gap 10.3 mmol/L (3-11); BUN 17 mg/dL (7-18); Bilirubin, Total 0.3 mg/dL (0.2-1.0); CO2 23.7 mmol/L (21.0-32.0); CREATININE 0.77 mg/dL (0.55-1.02); Calcium 8.3 mg/dL (8.5-10.1); Chloride 105 mmol/L (98-107); Glucose 81 mg/dL (70-100); Magnesium 1.6 mg/dL (1.8-2.4); Potassium 4.2 mmol/L (3.5-5.1); Sodium 139 mmol/L (136-145); Total Protein 6.4 g/dL (6.4-8.2); Triglyceride 84 mg/dL (30-150)
[2018-05-26 13:26] LABS: PHOSPHORUS 3.1 mg/dL (2.6-4.7)
[2018-05-26 13:37] LABS: Absolute Lymphocyte Count 1.41 k/cumm (1.2-3.4); Atypical Lymphocytes % 0
[2018-05-26 13:38] LABS: Absolute Eosinophil Count 0.15 k/cumm (0.0-0.7)
[2018-05-26 13:39] LABS: Anisocytosis 1+; Diff Comment Manual Differential; Hypochromasia 1+; Poikilocytes 1+; Polychromasia Present
[2018-05-26 14:07] LABS: Absolute Neutrophil Count 0.39 k/cumm (1.2-6.7)
[2018-05-27 11:10] LABS: Prealbumin 15 mg/dL (20-40)
[2018-06-02 13:51] LABS: Absolute Basophil Count 0.09 k/cumm (0.0-0.2); Absolute Eosinophil Count 0.19 k/cumm (0.0-0.7); Absolute Lymphocyte Count 1.08 k/cumm (1.2-3.4); Absolute Monocyte Count 0.59 k/cumm (0.11-0.7); Absolute Neutrophil Count 0.78 k/cumm (1.2-6.7); Basophils % 3.3; HCT 28.9 % (36.0-46.0); HGB 8.9 g/dL (12.0-15.5); Lymphocytes % 39.6; Mean Corp. HGB Concentration 30.8 g/dL (32.0-36.0); Mean Corpuscular Hemoglobin 31.1 pg (27.0-33.0); Mean Platelet Volume 10.4 fL (8.0-11.0); Monocytes % 21.6; Neutrophils % 28.5; Platelet Count 339 x1000/uL (130-400); RBC 2.86 m/cumm (4.00-5.20); RBC Distribution Width 17.6 % (11.7-14.6); White Blood Cell Count 2.73 k/cumm (4.4-10.8)
[2018-06-02 14:10] LABS: ALT 117 U/L (12-78); AST 88 U/L (15-37); Albumin 2.6 g/dL (3.4-5.0); Alkaline Phosphatase 158 U/L (46-116); Anion Gap 9.7 mmol/L (3-11); BUN 17 mg/dL (7-18); Bilirubin, Total 0.3 mg/dL (0.2-1.0); CO2 25.3 mmol/L (21.0-32.0); CREATININE 0.47 mg/dL (0.55-1.02); Calcium 8.2 mg/dL (8.5-10.1); Chloride 107 mmol/L (98-107); Glucose 87 mg/dL (70-100); Magnesium 1.5 mg/dL (1.8-2.4); Potassium 3.8 mmol/L (3.5-5.1); Sodium 142 mmol/L (136-145); Total Protein 6.1 g/dL (6.4-8.2); Triglyceride 103 mg/dL (30-150)
[2018-06-02 14:17] LABS: Diff Comment Diff Reviewed
[2018-06-02 14:18] LABS: Anisocytosis 2+; Hypochromasia 1+; Macrocytosis 1+; Poikilocytes 1+; Polychromasia Present
[2018-06-02 14:20] LABS: PHOSPHORUS 3.9 mg/dL (2.6-4.7)
[2018-06-03 09:35] LABS: Prealbumin 15 mg/dL (20-40)
[2018-06-09] MEDS: Normal Saline Flush 10 ML SYR IVP (11:14)
[2018-06-16] MEDS: Normal Saline Flush 10 ML SYR IVP (13:00)
[2018-06-16 13:23] LABS: Abs Immature Grans 0.01 k/cumm (0.0-0.09); Absolute Basophil Count 0.17 k/cumm (0.0-0.2); Absolute Eosinophil Count 0.26 k/cumm (0.0-0.7); Absolute Lymphocyte Count 2.48 k/cumm (1.2-3.4); Absolute Monocyte Count 0.49 k/cumm (0.11-0.7); Absolute Neutrophil Count 4.92 k/cumm (1.2-6.7); Eosinophils % 3.1; HCT 32.8 % (36.0-46.0); HGB 10.3 g/dL (12.0-15.5); Immature Grans % 0.1; Lymphocytes % 29.8; Mean Corp. HGB Concentration 31.4 g/dL (32.0-36.0); Mean Corpuscular Hemoglobin 29.8 pg (27.0-33.0); Mean Corpuscular Volume 94.8 fL (80-95); Mean Platelet Volume 11.1 fL (8.0-11.0); Monocytes % 5.9; Neutrophils % 59.1; Platelet Count 433 x1000/uL (130-400); RBC 3.46 m/cumm (4.00-5.20); RBC Distribution Width 14.9 % (11.7-14.6); White Blood Cell Count 8.33 k/cumm (4.4-10.8)
[2018-06-16 13:41] LABS: ALT 48 U/L (12-78); AST 36 U/L (15-37); Albumin 3.2 g/dL (3.4-5.0); Alkaline Phosphatase 120 U/L (46-116); Anion Gap 12.5 mmol/L (3-11); BUN 18 mg/dL (7-18); Bilirubin, Total 0.2 mg/dL (0.2-1.0); CO2 21.5 mmol/L (21.0-32.0); CREATININE 0.58 mg/dL (0.55-1.02); Calcium 8.8 mg/dL (8.5-10.1); Chloride 104 mmol/L (98-107); Glucose 98 mg/dL (70-100); Magnesium 1.7 mg/dL (1.8-2.4); PHOSPHORUS 3.9 mg/dL (2.6-4.7); Potassium 3.9 mmol/L (3.5-5.1); Sodium 138 mmol/L (136-145); Total Protein 7.1 g/dL (6.4-8.2)
[2018-06-16 14:16] LABS: Triglyceride 84 mg/dL (30-150)
[2018-06-17 11:33] LABS: Prealbumin 23 mg/dL (20-40)
== END 2018-06-22 23:59 | disposition home or self-care (01) ==
LOC: INF 01:24
PROVIDERS: PCP Family Medicine; Visit Provider Internal Medicine Gastroenterology
DX: K91.2 Postsurgical malabsorption, not elsewhere classified (principal); Z45.2 Encounter for adjustment and management of vascular access device
CPT/HCPCS: 36592; 80053; 83735; 84100; 84134; 84478; 85025

== ENCOUNTER 2018-07-21 01:40 | Outpatient (RCR) | payer BC, SELFPAY ==
[2018-06-23] MEDS: Normal Saline Flush 10 ML SYR IVP (13:00)
[2018-06-23 13:50] LABS: Abs Immature Grans 0.01 k/cumm (0.0-0.09); Absolute Basophil Count 0.15 k/cumm (0.0-0.2); Absolute Eosinophil Count 0.22 k/cumm (0.0-0.7); Absolute Monocyte Count 0.48 k/cumm (0.11-0.7); Absolute Neutrophil Count 4.63 k/cumm (1.2-6.7); Basophils % 2.1; HCT 33.8 % (36.0-46.0); HGB 10.6 g/dL (12.0-15.5); Immature Grans % 0.1; Lymphocytes % 24.7; Mean Corp. HGB Concentration 31.4 g/dL (32.0-36.0); Mean Corpuscular Hemoglobin 29.2 pg (27.0-33.0); Mean Corpuscular Volume 93.1 fL (80-95); Monocytes % 6.6; Neutrophils % 63.5; Platelet Count 381 x1000/uL (130-400); RBC 3.63 m/cumm (4.00-5.20); RBC Distribution Width 14.7 % (11.7-14.6); White Blood Cell Count 7.29 k/cumm (4.4-10.8)
[2018-06-23 14:02] LABS: ALT 38 U/L (12-78); AST 25 U/L (15-37); Albumin 3.1 g/dL (3.4-5.0); Alkaline Phosphatase 109 U/L (46-116); Anion Gap 13.8 mmol/L (3-11); BUN 16 mg/dL (7-18); Bilirubin, Total 0.2 mg/dL (0.2-1.0); CO2 19.2 mmol/L (21.0-32.0); Calcium 8.9 mg/dL (8.5-10.1); Chloride 108 mmol/L (98-107); Glucose 102 mg/dL (70-100); Magnesium 1.6 mg/dL (1.8-2.4); Potassium 3.3 mmol/L (3.5-5.1); Sodium 141 mmol/L (136-145); Total Protein 7.3 g/dL (6.4-8.2); Triglyceride 75 mg/dL (30-150)
[2018-06-23 14:24] LABS: PHOSPHORUS 3.7 mg/dL (2.6-4.7)
[2018-06-24 11:38] LABS: Prealbumin 20 mg/dL (20-40)
[2018-06-30] MEDS: Normal Saline Flush 10 ML SYR IVP (14:00)
[2018-06-30 14:20] LABS: Abs Immature Grans 0.01 k/cumm (0.0-0.09); Absolute Eosinophil Count 0.29 k/cumm (0.0-0.7); Absolute Lymphocyte Count 1.96 k/cumm (1.2-3.4); Absolute Monocyte Count 0.44 k/cumm (0.11-0.7); Absolute Neutrophil Count 3.55 k/cumm (1.2-6.7); Basophils % 3.1; Eosinophils % 4.5; HCT 32.6 % (36.0-46.0); HGB 10.4 g/dL (12.0-15.5); Immature Grans % 0.2; Lymphocytes % 30.4; Mean Corp. HGB Concentration 31.9 g/dL (32.0-36.0); Mean Corpuscular Hemoglobin 29.2 pg (27.0-33.0); Mean Corpuscular Volume 91.6 fL (80-95); Monocytes % 6.8; Platelet Count 323 x1000/uL (130-400); RBC 3.56 m/cumm (4.00-5.20); RBC Distribution Width 14.7 % (11.7-14.6); White Blood Cell Count 6.45 k/cumm (4.4-10.8)
[2018-06-30 14:39] LABS: ALT 39 U/L (12-78); AST 31 U/L (15-37); Albumin 3.1 g/dL (3.4-5.0); Alkaline Phosphatase 107 U/L (46-116); Anion Gap 11.1 mmol/L (3-11); BUN 17 mg/dL (7-18); Bilirubin, Total 0.2 mg/dL (0.2-1.0); CO2 22.9 mmol/L (21.0-32.0); CREATININE 0.59 mg/dL (0.55-1.02); Calcium 8.9 mg/dL (8.5-10.1); Chloride 106 mmol/L (98-107); Glucose 96 mg/dL (70-100); Magnesium 1.6 mg/dL (1.8-2.4); Potassium 3.4 mmol/L (3.5-5.1); Sodium 140 mmol/L (136-145); Total Protein 7.1 g/dL (6.4-8.2); Triglyceride 79 mg/dL (30-150)
[2018-06-30 14:48] LABS: PHOSPHORUS 3.8 mg/dL (2.6-4.7)
[2018-07-01 11:06] LABS: Prealbumin 20 mg/dL (20-40)
[2018-07-07] MEDS: Normal Saline Flush 10 ML SYR IVP (13:15)
[2018-07-07 13:52] LABS: Abs Immature Grans 0.01 k/cumm (0.0-0.09); Absolute Basophil Count 0.13 k/cumm (0.0-0.2); Absolute Eosinophil Count 0.29 k/cumm (0.0-0.7); Absolute Lymphocyte Count 2.06 k/cumm (1.2-3.4); Absolute Monocyte Count 0.44 k/cumm (0.11-0.7); Absolute Neutrophil Count 3.18 k/cumm (1.2-6.7); Basophils % 2.1; Eosinophils % 4.7; HCT 32.8 % (36.0-46.0); HGB 10.5 g/dL (12.0-15.5); Immature Grans % 0.2; Lymphocytes % 33.7; Mean Corpuscular Volume 90.6 fL (80-95); Monocytes % 7.2; Neutrophils % 52.1; Platelet Count 361 x1000/uL (130-400); RBC 3.62 m/cumm (4.00-5.20); RBC Distribution Width 14.4 % (11.7-14.6); White Blood Cell Count 6.11 k/cumm (4.4-10.8)
[2018-07-07 14:08] LABS: ALT 43 U/L (12-78); AST 35 U/L (15-37); Albumin 3.1 g/dL (3.4-5.0); Alkaline Phosphatase 112 U/L (46-116); Anion Gap 10.7 mmol/L (3-11); BUN 18 mg/dL (7-18); Bilirubin, Total 0.2 mg/dL (0.2-1.0); CO2 25.3 mmol/L (21.0-32.0); Chloride 104 mmol/L (98-107); Glucose 97 mg/dL (70-100); Magnesium 1.5 mg/dL (1.8-2.4); Potassium 3.4 mmol/L (3.5-5.1); Sodium 140 mmol/L (136-145); Total Protein 7.5 g/dL (6.4-8.2); Triglyceride 73 mg/dL (30-150)
[2018-07-07 14:35] LABS: PHOSPHORUS 3.9 mg/dL (2.6-4.7)
[2018-07-08 10:06] LABS: Prealbumin 19 mg/dL (20-40)
[2018-07-14] MEDS: Normal Saline Flush 10 ML SYR IVP (12:40)
[2018-07-14 13:09] LABS: Abs Immature Grans 0.01 k/cumm (0.0-0.09); Absolute Basophil Count 0.11 k/cumm (0.0-0.2); Absolute Eosinophil Count 0.26 k/cumm (0.0-0.7); Absolute Lymphocyte Count 1.86 k/cumm (1.2-3.4); Absolute Monocyte Count 0.48 k/cumm (0.11-0.7); Absolute Neutrophil Count 4.71 k/cumm (1.2-6.7); Basophils % 1.5; Eosinophils % 3.5; HCT 32.7 % (36.0-46.0); HGB 10.5 g/dL (12.0-15.5); Immature Grans % 0.1; Mean Corp. HGB Concentration 32.1 g/dL (32.0-36.0); Mean Corpuscular Hemoglobin 28.9 pg (27.0-33.0); Mean Corpuscular Volume 90.1 fL (80-95); Mean Platelet Volume 10.6 fL (8.0-11.0); Monocytes % 6.5; Neutrophils % 63.4; Platelet Count 392 x1000/uL (130-400); RBC 3.63 m/cumm (4.00-5.20); RBC Distribution Width 14.8 % (11.7-14.6); White Blood Cell Count 7.43 k/cumm (4.4-10.8)
[2018-07-14 13:28] LABS: ALT 34 U/L (12-78); AST 25 U/L (15-37); Alkaline Phosphatase 113 U/L (46-116); Anion Gap 14.4 mmol/L (3-11); BUN 15 mg/dL (7-18); Bilirubin, Total 0.2 mg/dL (0.2-1.0); CO2 19.6 mmol/L (21.0-32.0); CREATININE 0.58 mg/dL (0.55-1.02); Calcium 8.8 mg/dL (8.5-10.1); Chloride 108 mmol/L (98-107); Glucose 108 mg/dL (70-100); Magnesium 1.6 mg/dL (1.8-2.4); PHOSPHORUS 3.7 mg/dL (2.6-4.7); Potassium 3.6 mmol/L (3.5-5.1); Sodium 142 mmol/L (136-145); Total Protein 6.9 g/dL (6.4-8.2)
[2018-07-14 13:45] LABS: Triglyceride 75 mg/dL (30-150)
[2018-07-15 11:28] LABS: Prealbumin 16 mg/dL (20-40)
[2018-07-21] MEDS: Normal Saline Flush 10 ML SYR IVP (13:10)
[2018-07-21 13:52] LABS: Abs Immature Grans 0.01 k/cumm (0.0-0.09); Absolute Basophil Count 0.15 k/cumm (0.0-0.2); Absolute Eosinophil Count 0.24 k/cumm (0.0-0.7); Absolute Lymphocyte Count 1.94 k/cumm (1.2-3.4); Absolute Monocyte Count 0.45 k/cumm (0.11-0.7); Absolute Neutrophil Count 2.72 k/cumm (1.2-6.7); Basophils % 2.7; Eosinophils % 4.4; HCT 33.9 % (36.0-46.0); HGB 10.7 g/dL (12.0-15.5); Immature Grans % 0.2; Lymphocytes % 35.2; Mean Corp. HGB Concentration 31.6 g/dL (32.0-36.0); Mean Corpuscular Hemoglobin 28.2 pg (27.0-33.0); Mean Corpuscular Volume 89.4 fL (80-95); Monocytes % 8.2; Neutrophils % 49.3; Platelet Count 347 x1000/uL (130-400); RBC 3.79 m/cumm (4.00-5.20); RBC Distribution Width 14.6 % (11.7-14.6); White Blood Cell Count 5.51 k/cumm (4.4-10.8)
[2018-07-21 14:13] LABS: ALT 51 U/L (12-78); AST 29 U/L (15-37); Albumin 3.2 g/dL (3.4-5.0); Alkaline Phosphatase 113 U/L (46-116); Anion Gap 8.5 mmol/L (3-11); BUN 16 mg/dL (7-18); Bilirubin, Total 0.2 mg/dL (0.2-1.0); CO2 25.5 mmol/L (21.0-32.0); CREATININE 0.63 mg/dL (0.55-1.02); Calcium 8.8 mg/dL (8.5-10.1); Chloride 104 mmol/L (98-107); FREE T4 0.85 ng/dL (0.76-1.46); Glucose 96 mg/dL (70-100); Magnesium 1.7 mg/dL (1.8-2.4); PHOSPHORUS 3.8 mg/dL (2.6-4.7); Potassium 3.7 mmol/L (3.5-5.1); Sodium 138 mmol/L (136-145); TSH 5.07 uIU/mL (0.358-3.74); Total Protein 7.1 g/dL (6.4-8.2)
[2018-07-21 14:27] LABS: Triglyceride 77 mg/dL (30-150)
[2018-07-21 21:07] LABS: T3, Total 85 ng/dl (97-169)
[2018-07-22 09:23] LABS: Prealbumin 19 mg/dL (20-40)
== END 2018-07-22 23:59 | disposition home or self-care (01) ==
LOC: INF 01:40
PROVIDERS: PCP Family Medicine; Visit Provider Internal Medicine Gastroenterology
DX: K91.2 Postsurgical malabsorption, not elsewhere classified (principal); E03.9 Hypothyroidism, unspecified; Z45.2 Encounter for adjustment and management of vascular access device
CPT/HCPCS: 36592; 80053; 83735; 84100; 84134; 84439; 84443; 84478; 84480; 85025

== ENCOUNTER 2018-08-19 01:23 | Outpatient (RCR) | payer BC, SELFPAY ==
[2018-07-28] MEDS: Normal Saline Flush 10 ML SYR IVP (13:00)
[2018-07-28 13:15] LABS: Abs Immature Grans 0.01 k/cumm (0.0-0.09); Absolute Basophil Count 0.13 k/cumm (0.0-0.2); Absolute Eosinophil Count 0.22 k/cumm (0.0-0.7); Absolute Monocyte Count 0.44 k/cumm (0.11-0.7); Absolute Neutrophil Count 3.47 k/cumm (1.2-6.7); Eosinophils % 3.5; HCT 33.1 % (36.0-46.0); HGB 10.4 g/dL (12.0-15.5); Immature Grans % 0.2; Mean Corp. HGB Concentration 31.4 g/dL (32.0-36.0); Mean Corpuscular Volume 89.2 fL (80-95); Mean Platelet Volume 10.3 fL (8.0-11.0); Monocytes % 6.9; Neutrophils % 54.4; Platelet Count 344 x1000/uL (130-400); RBC 3.71 m/cumm (4.00-5.20); RBC Distribution Width 14.9 % (11.7-14.6); White Blood Cell Count 6.37 k/cumm (4.4-10.8)
[2018-07-28 13:28] LABS: Triglyceride 84 mg/dL (30-150)
[2018-07-28 13:29] LABS: ALT 45 U/L (12-78); AST 23 U/L (15-37); Alkaline Phosphatase 103 U/L (46-116); Anion Gap 9.4 mmol/L (3-11); BUN 16 mg/dL (7-18); Bilirubin, Total 0.2 mg/dL (0.2-1.0); CO2 22.6 mmol/L (21.0-32.0); CREATININE 0.59 mg/dL (0.55-1.02); Calcium 8.7 mg/dL (8.5-10.1); Chloride 108 mmol/L (98-107); Glucose 106 mg/dL (70-100); Magnesium 1.8 mg/dL (1.8-2.4); PHOSPHORUS 3.6 mg/dL (2.6-4.7); Potassium 3.6 mmol/L (3.5-5.1); Sodium 140 mmol/L (136-145)
[2018-07-29 09:27] LABS: Prealbumin 18 mg/dL (20-40)
[2018-08-04] MEDS: Normal Saline Flush 10 ML SYR IVP (12:30)
[2018-08-04 13:15] LABS: Abs Immature Grans 0.01 k/cumm (0.0-0.09); Absolute Lymphocyte Count 1.98 k/cumm (1.2-3.4); Absolute Monocyte Count 0.55 k/cumm (0.11-0.7); Basophils % 1.4; Eosinophils % 2.8; HCT 34.7 % (36.0-46.0); HGB 11.1 g/dL (12.0-15.5); Immature Grans % 0.1; Lymphocytes % 27.7; Mean Corpuscular Hemoglobin 28.2 pg (27.0-33.0); Mean Corpuscular Volume 88.3 fL (80-95); Mean Platelet Volume 10.5 fL (8.0-11.0); Monocytes % 7.7; Neutrophils % 60.3; Platelet Count 389 x1000/uL (130-400); RBC 3.93 m/cumm (4.00-5.20); RBC Distribution Width 14.8 % (11.7-14.6); White Blood Cell Count 7.14 k/cumm (4.4-10.8)
[2018-08-04 13:23] LABS: ALT 32 U/L (12-78); AST 19 U/L (15-37); Alkaline Phosphatase 114 U/L (46-116); Anion Gap 12.8 mmol/L (3-11); BUN 19 mg/dL (7-18); Bilirubin, Total 0.1 mg/dL (0.2-1.0); CO2 22.2 mmol/L (21.0-32.0); CREATININE 0.67 mg/dL (0.55-1.02); Calcium 8.8 mg/dL (8.5-10.1); Chloride 104 mmol/L (98-107); Glucose 101 mg/dL (70-100); Magnesium 1.7 mg/dL (1.8-2.4); PHOSPHORUS 3.4 mg/dL (2.6-4.7); Potassium 3.6 mmol/L (3.5-5.1); Sodium 139 mmol/L (136-145)
[2018-08-04 13:36] LABS: Triglyceride 77 mg/dL (30-150)
[2018-08-05 08:38] LABS: Prealbumin 15 mg/dL (20-40)
[2018-08-05 19:18] LABS: Copper, Serum 0.42 mcg/mL (0.75-1.45)
[2018-08-05 19:40] LABS: Zinc, Serum 0.59 mcg/mL (0.66-1.10)
[2018-08-11] MEDS: Normal Saline Flush 10 ML SYR IVP (12:45)
[2018-08-11 13:39] LABS: Abs Immature Grans 0.01 k/cumm (0.0-0.09); Absolute Basophil Count 0.09 k/cumm (0.0-0.2); Absolute Eosinophil Count 0.31 k/cumm (0.0-0.7); Absolute Lymphocyte Count 2.25 k/cumm (1.2-3.4); Absolute Monocyte Count 0.55 k/cumm (0.11-0.7); Absolute Neutrophil Count 3.79 k/cumm (1.2-6.7); Basophils % 1.3; Eosinophils % 4.4; HCT 33.1 % (36.0-46.0); HGB 10.7 g/dL (12.0-15.5); Immature Grans % 0.1; Lymphocytes % 32.1; Mean Corp. HGB Concentration 32.3 g/dL (32.0-36.0); Mean Corpuscular Hemoglobin 28.3 pg (27.0-33.0); Mean Corpuscular Volume 87.6 fL (80-95); Mean Platelet Volume 10.7 fL (8.0-11.0); Monocytes % 7.9; Neutrophils % 54.2; Platelet Count 357 x1000/uL (130-400); RBC 3.78 m/cumm (4.00-5.20); RBC Distribution Width 15.2 % (11.7-14.6)
[2018-08-11 13:50] LABS: ALT 26 U/L (12-78); AST 21 U/L (15-37); Alkaline Phosphatase 101 U/L (46-116); Anion Gap 9.6 mmol/L (3-11); BUN 23 mg/dL (7-18); Bilirubin, Total 0.2 mg/dL (0.2-1.0); CO2 25.4 mmol/L (21.0-32.0); CREATININE 0.51 mg/dL (0.55-1.02); Calcium 8.5 mg/dL (8.5-10.1); Chloride 104 mmol/L (98-107); Glucose 84 mg/dL (70-100); Magnesium 1.7 mg/dL (1.8-2.4); Sodium 139 mmol/L (136-145); Total Protein 6.7 g/dL (6.4-8.2); Triglyceride 76 mg/dL (30-150)
[2018-08-11 14:20] LABS: PHOSPHORUS 4.5 mg/dL (2.6-4.7)
[2018-08-12 10:29] LABS: Prealbumin 16 mg/dL (20-40)
[2018-08-19] MEDS: Normal Saline Flush 10 ML SYR IVP (12:12)
[2018-08-19 12:36] LABS: Abs Immature Grans 0.01 k/cumm (0.0-0.09); Absolute Basophil Count 0.11 k/cumm (0.0-0.2); Absolute Eosinophil Count 0.33 k/cumm (0.0-0.7); Absolute Lymphocyte Count 1.78 k/cumm (1.2-3.4); Absolute Monocyte Count 0.44 k/cumm (0.11-0.7); Absolute Neutrophil Count 4.36 k/cumm (1.2-6.7); Basophils % 1.6; Eosinophils % 4.7; HCT 32.3 % (36.0-46.0); HGB 10.1 g/dL (12.0-15.5); Immature Grans % 0.1; Lymphocytes % 25.3; Mean Corp. HGB Concentration 31.3 g/dL (32.0-36.0); Mean Corpuscular Hemoglobin 27.9 pg (27.0-33.0); Mean Corpuscular Volume 89.2 fL (80-95); Mean Platelet Volume 10.6 fL (8.0-11.0); Monocytes % 6.3; Platelet Count 316 x1000/uL (130-400); RBC 3.62 m/cumm (4.00-5.20); RBC Distribution Width 16.2 % (11.7-14.6); White Blood Cell Count 7.03 k/cumm (4.4-10.8)
[2018-08-19 12:50] LABS: ALT 29 U/L (12-78); AST 21 U/L (15-37); Albumin 2.9 g/dL (3.4-5.0); Alkaline Phosphatase 99 U/L (46-116); Anion Gap 12.9 mmol/L (3-11); BUN 16 mg/dL (7-18); Bilirubin, Total 0.3 mg/dL (0.2-1.0); CO2 21.1 mmol/L (21.0-32.0); CREATININE 0.58 mg/dL (0.55-1.02); Calcium 8.6 mg/dL (8.5-10.1); Chloride 107 mmol/L (98-107); Glucose 86 mg/dL (70-100); Magnesium 1.6 mg/dL (1.8-2.4); PHOSPHORUS 4.4 mg/dL (2.6-4.7); Potassium 3.7 mmol/L (3.5-5.1); Sodium 141 mmol/L (136-145); Total Protein 6.5 g/dL (6.4-8.2)
[2018-08-19 13:27] LABS: Triglyceride 99 mg/dL (30-150)
[2018-08-20 10:23] LABS: Prealbumin 16 mg/dL (20-40)
== END 2018-08-22 23:59 | disposition home or self-care (01) ==
LOC: INF 01:23
PROVIDERS: PCP Family Medicine; Visit Provider Internal Medicine Gastroenterology
DX: K91.2 Postsurgical malabsorption, not elsewhere classified (principal); Z45.2 Encounter for adjustment and management of vascular access device
CPT/HCPCS: 36592; 80053; 82525; 83735; 84100; 84134; 84478; 84630; 85025

== ENCOUNTER 2018-09-15 02:05 | Outpatient (RCR) | payer BC, SELFPAY ==
[2018-08-25 12:49] LABS: Abs Immature Grans 0.02 k/cumm (0.0-0.09); Absolute Eosinophil Count 0.36 k/cumm (0.0-0.7); Absolute Lymphocyte Count 2.18 k/cumm (1.2-3.4); Absolute Monocyte Count 0.66 k/cumm (0.11-0.7); Absolute Neutrophil Count 3.71 k/cumm (1.2-6.7); Basophils % 1.4; Eosinophils % 5.1; HCT 33.3 % (36.0-46.0); HGB 10.5 g/dL (12.0-15.5); Immature Grans % 0.3; Mean Corp. HGB Concentration 31.5 g/dL (32.0-36.0); Mean Corpuscular Volume 88.8 fL (80-95); Mean Platelet Volume 10.3 fL (8.0-11.0); Monocytes % 9.4; Neutrophils % 52.8; Platelet Count 350 x1000/uL (130-400); RBC 3.75 m/cumm (4.00-5.20); RBC Distribution Width 17.2 % (11.7-14.6); White Blood Cell Count 7.03 k/cumm (4.4-10.8)
[2018-08-25 13:01] LABS: ALT 37 U/L (12-78); AST 21 U/L (15-37); Alkaline Phosphatase 100 U/L (46-116); Anion Gap 10.4 mmol/L (3-11); BUN 23 mg/dL (7-18); Bilirubin, Total 0.2 mg/dL (0.2-1.0); CO2 23.6 mmol/L (21.0-32.0); CREATININE 0.53 mg/dL (0.55-1.02); Calcium 8.8 mg/dL (8.5-10.1); Chloride 105 mmol/L (98-107); Glucose 90 mg/dL (70-100); Magnesium 1.9 mg/dL (1.8-2.4); PHOSPHORUS 4.5 mg/dL (2.6-4.7); Sodium 139 mmol/L (136-145); Total Protein 6.8 g/dL (6.4-8.2)
[2018-08-25] MEDS: Normal Saline Flush 10 ML SYR IVP (13:02)
[2018-08-25 13:17] LABS: Triglyceride 78 mg/dL (30-150)
[2018-08-26 10:56] LABS: Prealbumin 17 mg/dL (20-40)
[2018-09-01] MEDS: Normal Saline Flush 10 ML SYR IVP (13:01)
[2018-09-08 12:02] LABS: Abs Immature Grans 0.01 k/cumm (0.0-0.09); Absolute Basophil Count 0.08 k/cumm (0.0-0.2); Absolute Eosinophil Count 0.34 k/cumm (0.0-0.7); Absolute Lymphocyte Count 2.04 k/cumm (1.2-3.4); Absolute Monocyte Count 0.55 k/cumm (0.11-0.7); Basophils % 1.1; Eosinophils % 4.7; HCT 32.6 % (36.0-46.0); HGB 10.4 g/dL (12.0-15.5); Immature Grans % 0.1; Lymphocytes % 28.3; Mean Corp. HGB Concentration 31.9 g/dL (32.0-36.0); Mean Corpuscular Hemoglobin 28.7 pg (27.0-33.0); Mean Corpuscular Volume 89.8 fL (80-95); Monocytes % 7.6; Neutrophils % 58.2; Platelet Count 360 x1000/uL (130-400); RBC 3.63 m/cumm (4.00-5.20); RBC Distribution Width 16.6 % (11.7-14.6); White Blood Cell Count 7.22 k/cumm (4.4-10.8)
[2018-09-08 12:23] LABS: ALT 23 U/L (12-78); AST 15 U/L (15-37); Albumin 2.8 g/dL (3.4-5.0); Alkaline Phosphatase 94 U/L (46-116); Anion Gap 12.4 mmol/L (3-11); BUN 16 mg/dL (7-18); Bilirubin, Total 0.3 mg/dL (0.2-1.0); CO2 21.6 mmol/L (21.0-32.0); CREATININE 0.67 mg/dL (0.55-1.02); Calcium 8.4 mg/dL (8.5-10.1); Chloride 108 mmol/L (98-107); FREE T4 0.87 ng/dL (0.76-1.46); Glucose 98 mg/dL (70-100); Magnesium 1.6 mg/dL (1.8-2.4); PHOSPHORUS 3.8 mg/dL (2.6-4.7); Potassium 3.5 mmol/L (3.5-5.1); Sodium 142 mmol/L (136-145); TSH 4.48 uIU/mL (0.358-3.74); Total Protein 6.5 g/dL (6.4-8.2)
[2018-09-08] MEDS: Normal Saline Flush 10 ML SYR IVP (12:58)
[2018-09-08 13:08] LABS: Triglyceride 103 mg/dL (30-150)
[2018-09-08 17:35] LABS: T3, Total 88 ng/dl (97-169)
[2018-09-09 10:36] LABS: Prealbumin 14 mg/dL (20-40)
[2018-09-15] MEDS: Normal Saline Flush 10 ML SYR IVP (13:10)
== END 2018-09-21 23:59 | disposition home or self-care (01) ==
LOC: INF 02:05
PROVIDERS: PCP Family Medicine; Visit Provider Internal Medicine Gastroenterology
DX: K91.2 Postsurgical malabsorption, not elsewhere classified (principal); Z45.2 Encounter for adjustment and management of vascular access device
CPT/HCPCS: 36592; 80053; 96365; 96523; 83735; 84100; 84134; 84439; 84443; 84478; 84480; 85025

== ENCOUNTER 2018-10-20 01:00 | Outpatient (RCR) | payer BC, SELFPAY ==
[2018-09-22] MEDS: Normal Saline Flush 10 ML SYR IVP (12:10)
[2018-09-22 12:23] LABS: Abs Immature Grans 0.01 k/cumm (0.0-0.09); Absolute Basophil Count 0.08 k/cumm (0.0-0.2); Absolute Lymphocyte Count 2.08 k/cumm (1.2-3.4); Absolute Monocyte Count 0.46 k/cumm (0.11-0.7); Absolute Neutrophil Count 3.58 k/cumm (1.2-6.7); Basophils % 1.2; Eosinophils % 3.1; HCT 33.9 % (36.0-46.0); Immature Grans % 0.2; Lymphocytes % 32.4; Mean Corp. HGB Concentration 32.4 g/dL (32.0-36.0); Mean Corpuscular Hemoglobin 29.6 pg (27.0-33.0); Mean Corpuscular Volume 91.4 fL (80-95); Mean Platelet Volume 10.5 fL (8.0-11.0); Monocytes % 7.2; Neutrophils % 55.9; Platelet Count 327 x1000/uL (130-400); RBC 3.71 m/cumm (4.00-5.20); RBC Distribution Width 16.4 % (11.7-14.6); White Blood Cell Count 6.41 k/cumm (4.4-10.8)
[2018-09-22 12:47] LABS: ALT 29 U/L (12-78); AST 19 U/L (15-37); Albumin 2.8 g/dL (3.4-5.0); Alkaline Phosphatase 102 U/L (46-116); BUN 17 mg/dL (7-18); Bilirubin, Total 0.3 mg/dL (0.2-1.0); CREATININE 0.63 mg/dL (0.55-1.02); Calcium 8.7 mg/dL (8.5-10.1); Chloride 106 mmol/L (98-107); FREE T4 0.69 ng/dL (0.76-1.46); Glucose 95 mg/dL (70-100); Magnesium 1.5 mg/dL (1.8-2.4); PHOSPHORUS 3.8 mg/dL (2.6-4.7); Potassium 3.9 mmol/L (3.5-5.1); Sodium 141 mmol/L (136-145); TSH 15.94 uIU/mL (0.358-3.74); Total Protein 6.6 g/dL (6.4-8.2)
[2018-09-22 13:00] LABS: Triglyceride 82 mg/dL (30-150)
[2018-09-22 22:38] LABS: T3, Total 85 ng/dl (97-169)
[2018-09-23 08:56] LABS: Prealbumin 15 mg/dL (20-40)
[2018-09-29] MEDS: Normal Saline Flush 10 ML SYR IVP (13:00)
[2018-10-06] MEDS: Normal Saline Flush 10 ML SYR IVP (13:00)
[2018-10-06 14:09] LABS: Abs Immature Grans 0.01 k/cumm (0.0-0.09); Absolute Basophil Count 0.09 k/cumm (0.0-0.2); Absolute Eosinophil Count 0.22 k/cumm (0.0-0.7); Absolute Lymphocyte Count 1.99 k/cumm (1.2-3.4); Absolute Monocyte Count 0.58 k/cumm (0.11-0.7); Absolute Neutrophil Count 3.72 k/cumm (1.2-6.7); Basophils % 1.4; Eosinophils % 3.3; HCT 33.3 % (36.0-46.0); HGB 10.8 g/dL (12.0-15.5); Immature Grans % 0.2; Lymphocytes % 30.1; Mean Corp. HGB Concentration 32.4 g/dL (32.0-36.0); Mean Corpuscular Hemoglobin 29.6 pg (27.0-33.0); Mean Corpuscular Volume 91.2 fL (80-95); Mean Platelet Volume 10.9 fL (8.0-11.0); Monocytes % 8.8; Neutrophils % 56.2; Platelet Count 336 x1000/uL (130-400); RBC 3.65 m/cumm (4.00-5.20); RBC Distribution Width 15.7 % (11.7-14.6); White Blood Cell Count 6.61 k/cumm (4.4-10.8)
[2018-10-06 14:44] LABS: ALT 28 U/L (12-78); AST 22 U/L (15-37); Albumin 2.9 g/dL (3.4-5.0); Alkaline Phosphatase 113 U/L (46-116); Anion Gap 12.7 mmol/L (3-11); BUN 19 mg/dL (7-18); Bilirubin, Total 0.4 mg/dL (0.2-1.0); CO2 21.3 mmol/L (21.0-32.0); CREATININE 0.48 mg/dL (0.55-1.02); Calcium 8.6 mg/dL (8.5-10.1); Chloride 108 mmol/L (98-107); Glucose 92 mg/dL (70-100); Magnesium 1.7 mg/dL (1.8-2.4); PHOSPHORUS 4.1 mg/dL (2.6-4.7); Potassium 3.6 mmol/L (3.5-5.1); Sodium 142 mmol/L (136-145); Total Protein 6.6 g/dL (6.4-8.2)
[2018-10-06 14:55] LABS: Triglyceride 78 mg/dL (30-150)
[2018-10-07 10:48] LABS: Prealbumin 11 mg/dL (20-40)
[2018-10-09] MEDS: Bacitracin 1 PACKET (10:15)
[2018-10-20 11:21] LABS: Abs Immature Grans 0.01 k/cumm (0.0-0.09); Absolute Basophil Count 0.09 k/cumm (0.0-0.2); Absolute Eosinophil Count 0.12 k/cumm (0.0-0.7); Absolute Lymphocyte Count 1.45 k/cumm (1.2-3.4); Absolute Monocyte Count 0.44 k/cumm (0.11-0.7); Absolute Neutrophil Count 4.95 k/cumm (1.2-6.7); Basophils % 1.3; Eosinophils % 1.7; HCT 35.3 % (36.0-46.0); HGB 11.7 g/dL (12.0-15.5); Immature Grans % 0.1; Lymphocytes % 20.5; Mean Corp. HGB Concentration 33.1 g/dL (32.0-36.0); Mean Corpuscular Hemoglobin 29.9 pg (27.0-33.0); Mean Corpuscular Volume 90.3 fL (80-95); Mean Platelet Volume 10.5 fL (8.0-11.0); Monocytes % 6.2; Neutrophils % 70.2; Platelet Count 329 x1000/uL (130-400); RBC 3.91 m/cumm (4.00-5.20); RBC Distribution Width 15.9 % (11.7-14.6); White Blood Cell Count 7.06 k/cumm (4.4-10.8)
[2018-10-20 11:36] LABS: ALT 27 U/L (12-78); AST 20 U/L (15-37); Albumin 2.7 g/dL (3.4-5.0); Alkaline Phosphatase 127 U/L (46-116); Anion Gap 9.2 mmol/L (3-11); BUN 15 mg/dL (7-18); Bilirubin, Total 0.4 mg/dL (0.2-1.0); CO2 24.8 mmol/L (21.0-32.0); CREATININE 0.63 mg/dL (0.55-1.02); Calcium 8.2 mg/dL (8.5-10.1); Chloride 107 mmol/L (98-107); Glucose 89 mg/dL (70-100); Magnesium 1.3 mg/dL (1.8-2.4); PHOSPHORUS 2.7 mg/dL (2.6-4.7); Potassium 3.1 mmol/L (3.5-5.1); Sodium 141 mmol/L (136-145); Total Protein 6.5 g/dL (6.4-8.2)
[2018-10-20 11:47] LABS: Triglyceride 51 mg/dL (30-150)
[2018-10-21 10:36] LABS: Prealbumin 8 mg/dL (20-40)
== END 2018-10-22 23:59 | disposition home or self-care (01) ==
LOC: INF 01:00
PROVIDERS: PCP Family Medicine; Visit Provider Internal Medicine Gastroenterology
DX: K91.2 Postsurgical malabsorption, not elsewhere classified (principal); Z45.2 Encounter for adjustment and management of vascular access device
CPT/HCPCS: 36415; 36592; 80053; 83735; 84100; 84134; 84439; 84443; 84478; 84480; 85025

== ENCOUNTER 2018-10-30 19:03 | Emergency (ER) | payer BC, SELFPAY ==
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
[2018-10-30 19:09] VITALS: BP 133/76; PULSE 77; RESP 16; TEMP 36.4; O2SAT 99
[2018-10-30] MEDS: Ibuprofen 800 MG TAB (19:30)
[2018-10-30] MEDS: Acetaminophen 500 MG TAB (19:30)
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
[2018-10-30] MEDS: Lidocaine 5% Patch 1 PATCH TP (20:38)
[2018-10-30 21:05] VITALS: BP 133/76; PULSE 77; RESP 16; TEMP 36.6; O2SAT 99
== END 2018-10-30 20:56 | disposition home or self-care (01) ==
LOC: ER 20:33
PROVIDERS: Emergency Provider Student in an Organized Health Care Education/Training Program; PCP Family Medicine
DX: S82.125A Nondisplaced fracture of lateral condyle of left tibia, initial encounter for closed fracture (principal); V00.831A Fall from motorized mobility scooter, initial encounter
CPT/HCPCS: 29505; 73562; 99283; E0114; L1830

== ENCOUNTER 2018-11-10 05:57 | Inpatient (IN) | payer BC, SELFPAY ==
[2018-11-10] VITALS (35 sets, daily range): BP systolic 92–110; BP diastolic 58–76; PULSE 60–85; RESP 12–20; TEMP 36–36.8; O2SAT 96–100
[2018-11-10] MEDS: Lactated Ringers 1,000 ML 80 ML IV (06:40)
[2018-11-10] MEDS: ceFAZolin 2 GM/50 ML BAG IVPB (07:34)
--- NOTE | 2018-11-10 07:42 | DI.RAD_ITS ---
SYMPTOM/DIAGNOSIS: LEFT TIBIAL PLATEAU FX. C-ARM FLUOROSCOPY: 11/10 Fluoroscopy Time: 2.41 seconds/1.13mGy C-Arm fluoroscopy was utilized by Dr. Castorena during open reduction and internal fixation of lateral tibial plateau fracture. Hard copies show plate and screw fixation of the fracture fragments.
[2018-11-10] MEDS: fentaNYL 100 MCG/2 ML VIAL IVP ×2 (10:30→10:45)
--- NOTE | 2018-11-10 10:30 | DI.RAD_ITS ---
SYMPTOM/DIAGNOSIS: CHECK REDUCTION AFTER ORIF LEFT KNEE: 11/10 Two views were obtained and show plate and screw fixation of lateral tibial plateau fracture. Surgical marck overlie the operative site.
[2018-11-10] MEDS: Loperamide 2 MG CAP 8 MG PO ×3 (11:20→19:44)
[2018-11-10] MEDS: oxyCODONE-CR 10 MG TABCR PO (12:10)
[2018-11-10] MEDS: POTASSIUM CHLORIDE/0.9% NACL 1,000 ML 60 MEQ IV (12:51)
[2018-11-10] MEDS: Normal Saline Flush 10 ML SYR IV ×2 (12:55→18:23)
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
[2018-11-10] MEDS: Ketorolac 30 MG/ML VIAL IVP (18:23)
[2018-11-10] MEDS: Budesonide/Formoterol 160/4.5 6 GM 60 PUFF INH IH (22:09)
[2018-11-10] MEDS: Pantoprazole 20 MG TABCR PO (22:15)
[2018-11-10] MEDS: oxyCODONE 5 mg/Acetaminophen 325 mg TAB 1 TAB PO (22:16)
[2018-11-11] MEDS: Loperamide 2 MG CAP 8 MG PO ×3 (02:13→09:31)
[2018-11-11 03:46] VITALS: BP 99/68; PULSE 80; RESP 17; TEMP 36.9; O2SAT 97
[2018-11-11] MEDS: Ketorolac 30 MG/ML VIAL IVP ×2 (03:59→09:31)
[2018-11-11] MEDS: POTASSIUM CHLORIDE/0.9% NACL 1,000 ML 60 MEQ IV (04:00)
[2018-11-11] MEDS: Levothyroxine 175 MCG TAB 350 MCG PO (06:10)
[2018-11-11 07:35] VITALS: BP 95/63; PULSE 70; RESP 17; TEMP 36.5; O2SAT 97
[2018-11-11] MEDS: Multivitamin TAB 1 TAB PO (08:20)
[2018-11-11] MEDS: Prochlorperazine 5 MG TAB PO (08:20)
[2018-11-11] MEDS: Pantoprazole 20 MG TABCR PO (08:21)
[2018-11-11] MEDS: Cyanocobalamin 500 MCG TAB 1000 MCG PO (08:21)
[2018-11-11] MEDS: oxyCODONE 5 mg/Acetaminophen 325 mg TAB 1 TAB PO (09:31)
--- NOTE | 2018-11-11 09:48 | PT.INTREAT ---
Date of service: 11/11/18 Time of Service: 08:30 PT Notes Inpatient Physical Therapy Treatment Note [facility] Date: 11/11/18 PRECAUTIONS:NWB LLE SUBJECTIVE: Lacie states that she's feeling good this morning. She's anxious to get home. She states that she'd like to be able to get up to the commode with help from her instead of calling for nursing. She also has questions about her knee immobilizer; the straps have come loose from the brace and she questions its stability. OBJECTIVE: PAIN: 04/03 BED MOBILITY/TRANSFERS Supine-sit: independent Sit-supine: independent Sit-stand: supervision Stand-sit: supervision Bed-Chair: supervision with NWB LLE, stand pivot transfer without device Chair-bed: supervision with NWB LLE, stand pivot transfer without device THEREX: Instructed in bed exercises as noted on flowsheet. Her current knee immobilizer has two straps that have come loose at their stitching; she was fitted with a new immobilizer, which she's able to effectively don and doff with assistance from her . Patient education: Educated patient and her on safe transfers, with need for only SBA/supervision for safety. They demonstrate excellent understanding and technique. ASSESSMENT: Patient is safe for family-supervised transfers to the commode in her room. She's anxious to return home, and is safe to do so once medically cleared. TREATMENT CODE/TIME: 8:30-9:00 ([id number])
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
[2018-11-11] MEDS: oxyCODONE-CR 10 MG TABCR PO (12:08)
--- NOTE | 2018-11-11 12:25 | W.PM.DS.N ---
Date of service: 11/11/18 Time of Service: 12:25 Discharge Plan Disposition Patient Disposition: HOME Condition: Good Discharge Details Reason For Visit: LATERAL TIBIAL PLATEAU FX ORIF Admit Date/Time: 11/10/18 09:41 Admit Provider: Edvin Castorena Attending Provider: Edvin Castorena Primary Care Provider: Robbie Philippe [facility] Course Hospital Course: tHE PATIENT WAS TAKEN TO THE OR ON 11/10/18 where she underwent an ORIF of a lateral tibial plateau fx w/o complication. On 11/11, POD #1, she was experiencing mild pain controlled with oxycodone. She was afebrile, VSS. She was independant with transfers and ambulation in the room. I thought she had completed her acute care goals and was ready for discharge home. Home Meds and New Rx's Prescriptions: New celecoxib 200 mg capsule 200 mg PO BID Qty: 30 RF: 0 oxycodone-acetaminophen 5-325 mg tablet 1 tab PO Q4H PRN (Reason: pain) Qty: 20 RF: 0 No Action lidocaine [Lidoderm] 1 PATCH patch 1 patch Topical Q24H PRNQty: 4 RF: 0 levothyroxine 125 MCG tablet 2 tab PO DAILY AM RF: 0 prochlorperazine maleate 5 MG tablet 1 tab PO DAILY RF: 0 pantoprazole [Protonix] 20 MG tablet,delayed release (DR/EC) 20 mg PO BID RF: 0 multivitamin Tablet 1 tab PO DAILY RF: 0 biotin 1 mg Tablet 1 tab PO DAILY RF: 0 loperamide 2 mg Capsule 8 mg PO Q4H Qty: 0 RF: 0 cyanocobalamin (vitamin B-12) [Vitamin B-12] 500 mcg Tablet 1,000 mcg PO DAILY Qty: 0 RF: 0 magnesium chloride [Mag 64] 64 mg Tablet,Delayed Release (Dr/Ec) 64 mg PO BID Qty: 0 RF: 0 diphenoxylate-atropine [Lomotil] 2.5-0.025 mg Tablet 1 tab PO DAILY PRNRF: 0 levothyroxine 50 mcg Tablet 50 mcg PO DAILY RF: 0 fluticasone propion-salmeterol [Advair Diskus] 250-50 mcg/dose Blister With Device 1 inh INHALATION BID RF: 0 Potassium/Magnesium Suppliment PO DAILY RF: 0 cyanocobalamin (vitamin B-12) 1,000 mcg/mL Solution 1,000 mcg IM QMONTH RF: 0 Discharge Instructions Additional Instructions: Elevate L leg when sitting. May loosen angelica wrap if too tight. Apply cryocuff to L knee 4 times/day for 1 hour each time. Touchdown toes for balance when walking, but do not step on L foot. Keep dressings dry and intact until return. Return to 's office in one week. Take celebrex as prescribed for swelling and inflammation. Can take tylenol for additional mild pain. Take oxycodone for breakthru pain, if needed. Stand Alone Forms: Nursing Discharge Form Referrals: Edvin Castorena MD [ [facility] ST[facility]FF [facility]YSICIAN] - (f/u in one week.) Activity:: Activity as Tolerated Equipment/Supplies:: Crutches Diet:: As Tolerated Discharge Orders Discharge Orders: Discharge Order (Routine); Ordered 11/11/18 Ordered By: Edvin Castorena DS: Data Vitals/I&O Vitals and I&O: Vital Signs Temperature 36.5 C 11/11/18 07:35 Temperature Source Tympanic 11/11/18 07:35 Pulse 70 11/11/18 07:35 Pulse Rhythm Regular 11/11/18 09:47 Pulse 85 11/10/18 12:50 Respiratory Rate 17 11/11/18 07:35 Respiratory Effort Non-Labored 11/11/18 09:47 Respiratory Depth Normal 11/11/18 09:47 Respiratory Pattern Normal 11/11/18 09:47 Blood Pressure 95/63 L 11/11/18 07:35 Blood Pressure Mean 73 11/10/18 15:25 Blood Pressure Position Supine 11/10/18 11:46 Pulse Oximetry 97 11/11/18 07:35 Respiratory End-tidal CO2 22 11/10/18 11:00 Oxygen Delivery Method Room Air 11/11/18 07:35 Oxygen Flow Rate 0 11/11/18 07:35 Pain Level 3 11/11/18 12:08 Intake & Output 11/10/18 11/11/18 11/11/18 23:59 11:59 23:59 Intake Total 640 / 1390 1379 / 1379 Output Total 375 / 375 Balance 265 / 1015 1379 / 1379 Weight 59.9 kg Intake: IV 420 / 1170 1009 / 1009 Oral 220 / 220 370 / 370 Output: Urine 300 / 300 Stool 75 / 75 Other: Urine Color Yellow Urine Appearance Clear Comment urine mixed with stool voiding in BSC w/help from Stool Size Moderate Large Stool Characteristics Soft Soft Brown Voiding Methods Bedside Commode Bedside Commode Labs on day of discharge: Labs from last 24 hours 11/11/18 11/11/18 12:23 12:22 Sodium Pending Potassium Pending Chloride Pending Carbon Dioxide Pending Anion Gap Pending BUN Pending Creatinine Pending Estimated GFR/1.73 m2 Pending Glucose Pending Calcium Pending Phosphorus Pending Magnesium Pending [facility] Family History (Updated 11/06/18 @ 09:18 by Raquel Roque RN) Other Cancer Diabetes Heart disease Social History Smoking/Tobacco Use Status: Never Alcohol Intake: never Drug use: Never Do you feel safe at home: Yes Do you feel safe in your relationship?: Yes
--- NOTE | 2018-11-11 13:21 | CHAPLAIN ---
I introduced myself to Lacie, explained my role and offered support. She has a visitor with her. Lacie she is all set and is not interested in further conversation.
[2018-11-11 13:24] LABS: Anion Gap 9.8 mmol/L (3-11); BUN 19 mg/dL (7-18); CO2 23.2 mmol/L (21.0-32.0); CREATININE 0.67 mg/dL (0.55-1.02); Calcium 7.5 mg/dL (8.5-10.1); Chloride 110 mmol/L (98-107); Glucose 96 mg/dL (70-100); Potassium 3.7 mmol/L (3.5-5.1); Sodium 143 mmol/L (136-145)
[2018-11-11 13:28] LABS: Magnesium 1.4 mg/dL (1.8-2.4); PHOSPHORUS 3.1 mg/dL (2.6-4.7)
--- NOTE | 2018-11-11 16:16 | INDS_ITS ---
Date of service: 11/11/18 Time of Service: 16:16 PT Notes Date: 11/11/18 Referring Doctor: Dr. Castorena PT Orders: PT CONSULT: s/p ortho surgery Precautions: NWB LLE Treatment dates: 11/10/2018?11/11/2018 This document serves as a summary of care. Patient Profile/Admitting Diagnosis: Patient admitted 11/10/18 after ORIF for repair of left tibial plateau fracture suffered 10/30/18. She participated into PT sessions over the course of 2 days, demonstrating excellent safety and ability to maintain nonweightbearing status. Patient was discharged home earlier today. PMHX: ischemic bowel, hypothyroidism, GERD, asthma Social History/Home Situation: Patient lives in [place] with her partner in a single level home with ramp to enter. 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 She normally ambulates without assistance, drives independently, etc. Since her injury, she's been getting around primarily by sitting in her rollator walker and scooting throughout the house. She's been able to stand and pivot independent. Equipment Owned/DME: FWW, rollator walker, w/c without leg rests Subjective: None obtained. Patient was discharged home earlier today. Objective: ROM: Right Upper Extremity: WFL Left Upper Extremity: WFL Right Lower Extremity: WFL Left Lower Extremity: not assessed due to post-operative status Strength: Right Upper Extremity: Shoulder flexion 4/5. Biceps 4+/5. Triceps 4+/5. Commissions Analyst is weak, but equal. Left Upper Extremity: Shoulder flexion 4/5. Biceps 4+/5. Triceps 4+/5. Commissions Analyst is weak, but equal. Right Lower Extremity: WFL Left Lower Extremity: Patient able to demonstrate good quad activation with quad setting. She's able to perform SLR with 50% assist. Ankle DF 4/5. Sensation: intact distally Bed Mobility/Transfers: supine-sit: Independent sit-supine: Independent sit->stand: supervision, with NWB LLE stand-sit: supervision, with NWB LLE Gait: Patient able to ambulate 3' with FWW, knee immobilizer on LLE, NWB LLE. She demonstrates good safety awareness and excellent understanding of NWB status. Balance: Static Sitting: NL Dynamic Sitting: NL Static Standing: Good Dynamic Standing: fair Assessment: Patient is a 53 year old female referred to physical therapy services with the diagnosis of left tibial plateau fracture s/p ORIF performed earlier today. Patient presented with clinical signs and symptoms consistent with post-operative status. She made excellent gains in mobility and safety, sufficient to allow for safe return home with assistance from her family. At this point, rehab goals have been met, and patient is appropriate for discharge from PT services in acute care setting. Goals: Goals X1 week 1. Supine-Sit : independent (MET) 2. Sit-Supine: independent(MET) 3. Sit-Stand : independent(MET) 4. Stand-Sit : independent(MET) 5. Bed-Chair : independent with FWW, knee immobilizer, NWB LLE(MET) 6. Chair-Bed : independent with FWW, knee immobilizer, NWB LLE(MET) 7. Gait : independent with FWW, knee immobilizer, NWB LLE x 10' (progressing toward) Plan of Care/Treatment Plan: Discharge from PT services in acute care setting. DISCHARGE RECOMMENDATIONS: home Charlene Zamudio, PT, DPT [facility]
== END 2018-11-11 13:40 | disposition home or self-care (01) | DRG 494 ==
LOC: PDS 06:00 → ICU 12:16 → MS 11-11 10:43 → PDS 11-12 17:40 → ICU 11-12 17:41 → MS 11-12 17:42
PROVIDERS: Admitting Provider Orthopaedic Surgery; PCP Family Medicine; Visit Provider Orthopaedic Surgery
PROC: 0QSH04Z Reposition Left Tibia with Internal Fixation Device, Open Approach (ICD-10-PCS; CPT 27535; principal; 2018-11-10 07:30)
DX: S82.142A Displaced bicondylar fracture of left tibia, initial encounter for closed fracture (principal); V86.56XA Driver of dirt bike or motor/cross bike injured in nontraffic accident, initial encounter
CPT/HCPCS: 27535; 80048; 97162; 97530; NC; 73560; 73590; 83735; 84100; 93005; 93010; J0131; J0690; J1100; J1885; J2250; J2405; J3010; L1830

== ENCOUNTER 2018-11-18 01:18 | Outpatient (RCR) | payer BC, SELFPAY ==
[2018-10-27 14:16] LABS: Abs Immature Grans 0.01 k/cumm (0.0-0.09); Absolute Basophil Count 0.09 k/cumm (0.0-0.2); Absolute Lymphocyte Count 2.19 k/cumm (1.2-3.4); Absolute Monocyte Count 0.54 k/cumm (0.11-0.7); Absolute Neutrophil Count 4.94 k/cumm (1.2-6.7); Basophils % 1.1; Eosinophils % 1.3; HCT 38.3 % (36.0-46.0); HGB 12.7 g/dL (12.0-15.5); Immature Grans % 0.1; Lymphocytes % 27.8; Mean Corp. HGB Concentration 33.2 g/dL (32.0-36.0); Mean Corpuscular Volume 90.3 fL (80-95); Mean Platelet Volume 10.4 fL (8.0-11.0); Monocytes % 6.9; Neutrophils % 62.8; Platelet Count 335 x1000/uL (130-400); RBC 4.24 m/cumm (4.00-5.20); White Blood Cell Count 7.87 k/cumm (4.4-10.8)
[2018-10-27 14:36] LABS: ALT 50 U/L (12-78); AST 35 U/L (15-37); Alkaline Phosphatase 145 U/L (46-116); Anion Gap 10.2 mmol/L (3-11); BUN 19 mg/dL (7-18); Bilirubin, Total 0.4 mg/dL (0.2-1.0); CO2 25.8 mmol/L (21.0-32.0); CREATININE 0.73 mg/dL (0.55-1.02); Calcium 8.3 mg/dL (8.5-10.1); Chloride 105 mmol/L (98-107); Glucose 90 mg/dL (70-100); Magnesium 1.5 mg/dL (1.8-2.4); Potassium 3.2 mmol/L (3.5-5.1); Sodium 141 mmol/L (136-145); Triglyceride 66 mg/dL (30-150)
[2018-10-27 15:04] LABS: PHOSPHORUS 2.8 mg/dL (2.6-4.7)
[2018-10-28 10:01] LABS: Prealbumin 14 mg/dL (20-40)
[2018-11-18] MEDS: Normal Saline Flush 10 ML SYR IVP (10:35)
[2018-11-18] MEDS: IRON SUCROSE COMPLEX 200 MG in Normal Saline 100 ML 110 MG IVPB (10:35)
[2018-11-18 11:04] LABS: Anion Gap 9.8 mmol/L (3-11); BUN 19 mg/dL (7-18); CO2 22.2 mmol/L (21.0-32.0); CREATININE 0.64 mg/dL (0.55-1.02); Calcium 7.3 mg/dL (8.5-10.1); Chloride 110 mmol/L (98-107); Glucose 105 mg/dL (70-100); Magnesium 1.5 mg/dL (1.8-2.4); PHOSPHORUS 3.6 mg/dL (2.6-4.7); Potassium 3.3 mmol/L (3.5-5.1); Sodium 142 mmol/L (136-145)
== END 2018-11-22 23:59 | disposition home or self-care (01) ==
LOC: INF 01:18
PROVIDERS: PCP Family Medicine; Visit Provider Internal Medicine Gastroenterology
DX: D50.9 Iron deficiency anemia, unspecified (principal)
CPT/HCPCS: 36415; 80048; 80053; 96365; 83735; 84100; 84134; 84478; 85025; J1756

== ENCOUNTER 2018-11-26 11:53 | Outpatient (CLI) | payer BC, SELFPAY ==
--- NOTE | 2018-11-26 11:40 | DI.RAD_ITS ---
SYMPTOMS/DIAGNOSIS: F/U TIBIAL PLATEAU FRACTURE LEFT KNEE: Comparison is made with October,. There has been no change in the lateral tibial plateau fracture or hardware alignment. No new abnormalities are seen. There are underlying degenerative changes.
== END 2018-11-26 12:13 ==
PROVIDERS: PCP Family Medicine; Visit Provider Orthopaedic Surgery
DX: S82.142D Displaced bicondylar fracture of left tibia, subsequent encounter for closed fracture with routine healing (principal)
CPT/HCPCS: 73560

== ENCOUNTER 2018-12-22 01:38 | Outpatient (RCR) | payer BC, SELFPAY ==
[2018-11-26 13:26] LABS: Anion Gap 12.4 mmol/L (3-11); BUN 15 mg/dL (7-18); CO2 22.6 mmol/L (21.0-32.0); CREATININE 0.74 mg/dL (0.55-1.02); Calcium 7.4 mg/dL (8.5-10.1); Chloride 106 mmol/L (98-107); Glucose 98 mg/dL (70-100); Magnesium 1.6 mg/dL (1.8-2.4); Sodium 141 mmol/L (136-145)
[2018-11-26 14:20] LABS: Potassium 2.5 mmol/L (3.5-5.1)
[2018-11-27 11:47] LABS: Anion Gap 8.3 mmol/L (3-11); BUN 18 mg/dL (7-18); CO2 21.7 mmol/L (21.0-32.0); CREATININE 0.83 mg/dL (0.55-1.02); Calcium 7.6 mg/dL (8.5-10.1); Chloride 109 mmol/L (98-107); Glucose 123 mg/dL (70-100); Potassium 3.6 mmol/L (3.5-5.1); Sodium 139 mmol/L (136-145)
[2018-12-03 13:44] LABS: Abs Immature Grans 0.02 k/cumm (0.0-0.09); Absolute Basophil Count 0.09 k/cumm (0.0-0.2); Absolute Eosinophil Count 0.05 k/cumm (0.0-0.7); Absolute Lymphocyte Count 1.38 k/cumm (1.2-3.4); Absolute Monocyte Count 0.47 k/cumm (0.11-0.7); Basophils % 1.3; Eosinophils % 0.7; HCT 33.3 % (36.0-46.0); HGB 10.4 g/dL (12.0-15.5); Immature Grans % 0.3; Lymphocytes % 19.4; Mean Corp. HGB Concentration 31.2 g/dL (32.0-36.0); Mean Corpuscular Hemoglobin 31.6 pg (27.0-33.0); Mean Corpuscular Volume 101.2 fL (80-95); Mean Platelet Volume 10.6 fL (8.0-11.0); Monocytes % 6.6; Neutrophils % 71.7; Platelet Count 390 x1000/uL (130-400); RBC 3.29 m/cumm (4.00-5.20); RBC Distribution Width 16.1 % (11.7-14.6); White Blood Cell Count 7.11 k/cumm (4.4-10.8)
[2018-12-03 13:58] LABS: ALT 34 U/L (14-59); AST 42 U/L (15-37); Alkaline Phosphatase 116 U/L (46-116); Anion Gap 10.2 mmol/L (3-11); BUN 18 mg/dL (7-18); Bilirubin, Direct 0.15 mg/dL (0.00-0.20); Bilirubin, Total 0.4 mg/dL (0.2-1.0); CO2 22.8 mmol/L (21.0-32.0); CREATININE 0.68 mg/dL (0.55-1.02); Calcium 7.6 mg/dL (8.5-10.1); Chloride 109 mmol/L (98-107); Glucose 80 mg/dL (70-100); Magnesium 1.6 mg/dL (1.8-2.4); Potassium 3.7 mmol/L (3.5-5.1); Sodium 142 mmol/L (136-145); Total Protein 5.5 g/dL (6.4-8.2)
[2018-12-04 20:07] LABS: Copper, Serum 0.32 mcg/mL (0.75-1.45); Zinc, Serum 0.57 mcg/mL (0.66-1.10)
[2018-12-08 14:59] LABS: Anion Gap 11.7 mmol/L (3-11); BUN 14 mg/dL (7-18); CO2 21.3 mmol/L (21.0-32.0); Calcium 7.5 mg/dL (8.5-10.1); Chloride 110 mmol/L (98-107); Glucose 92 mg/dL (70-100); Magnesium 1.8 mg/dL (1.8-2.4); PHOSPHORUS 3.5 mg/dL (2.6-4.7); Potassium 3.7 mmol/L (3.5-5.1); Sodium 143 mmol/L (136-145)
[2018-12-15 14:37] LABS: ALT 42 U/L (14-59); AST 41 U/L (15-37); Albumin 2.1 g/dL (3.4-5.0); Alkaline Phosphatase 111 U/L (46-116); Anion Gap 11.8 mmol/L (3-11); BUN 18 mg/dL (7-18); Bilirubin, Total 0.3 mg/dL (0.2-1.0); CO2 18.2 mmol/L (21.0-32.0); CREATININE 0.78 mg/dL (0.55-1.02); Calcium 7.6 mg/dL (8.5-10.1); Chloride 111 mmol/L (98-107); Glucose 94 mg/dL (70-100); Magnesium 1.8 mg/dL (1.8-2.4); PHOSPHORUS 3.4 mg/dL (2.6-4.7); Potassium 3.8 mmol/L (3.5-5.1); Sodium 141 mmol/L (136-145); Total Protein 6.1 g/dL (6.4-8.2)
[2018-12-22 10:07] LABS: Anion Gap 9.5 mmol/L (3-11); BUN 18 mg/dL (7-18); CO2 20.5 mmol/L (21.0-32.0); CREATININE 0.76 mg/dL (0.55-1.02); Calcium 7.5 mg/dL (8.5-10.1); Chloride 109 mmol/L (98-107); Glucose 77 mg/dL (70-100); Magnesium 1.7 mg/dL (1.8-2.4); Potassium 4.3 mmol/L (3.5-5.1); Sodium 139 mmol/L (136-145)
== END 2018-12-22 23:59 | disposition home or self-care (01) ==
LOC: INF 01:38
PROVIDERS: PCP Family Medicine; Visit Provider Internal Medicine Gastroenterology
DX: K91.2 Postsurgical malabsorption, not elsewhere classified (principal); D50.0 Iron deficiency anemia secondary to blood loss (chronic); E87.6 Hypokalemia; K90.9 Intestinal malabsorption, unspecified
CPT/HCPCS: 36415; 80048; 80053; 80076; 82525; 83735; 84100; 84630; 85025

== ENCOUNTER 2018-12-23 11:26 | Outpatient (CLI) | payer BC, SELFPAY ==
--- NOTE | 2018-12-23 10:16 | DI.RAD_ITS ---
EXAM: XR KNEE LT 2V AP,LAT INDICATION: f/u. COMPARISON: XR knee LT 2V AP,lat from 11/26/2018 TECHNIQUE: 2D digital imaging was performed. FINDINGS: There is again seen a lateral tibial plateau fracture. There are side plates and screws transfixing the fracture. There has been no change in alignment of the orthopaedic hardware or fracture componen ts since the prior examination. Moderate degenerative changes are present in the knee. No new fract ure or dislocation is present. The soft tissues are unremarkable. There is a small joint effusion. IMPRESSION: Stable left knee.
== END 2018-12-23 11:46 ==
PROVIDERS: PCP Family Medicine; Visit Provider Orthopaedic Surgery
DX: S82.142D Displaced bicondylar fracture of left tibia, subsequent encounter for closed fracture with routine healing (principal); M25.462 Effusion, left knee
CPT/HCPCS: 73560

== ENCOUNTER 2019-01-16 02:26 | Outpatient (RCR) | payer BC, SELFPAY ==
[2018-12-26] MEDS: IRON SUCROSE COMPLEX 200 MG in Normal Saline 100 ML 110 MG IVPB (09:51)
[2018-12-26] MEDS: Normal Saline Flush 10 ML SYR IVP (09:51)
[2019-01-02 09:07] LABS: Anion Gap 10.4 mmol/L (3-11); BUN 13 mg/dL (7-18); CO2 23.6 mmol/L (21.0-32.0); CREATININE 0.58 mg/dL (0.55-1.02); Calcium 8.2 mg/dL (8.5-10.1); Chloride 106 mmol/L (98-107); Glucose 83 mg/dL (70-100); Magnesium 1.8 mg/dL (1.8-2.4); PHOSPHORUS 2.9 mg/dL (2.6-4.7); Potassium 4.6 mmol/L (3.5-5.1); Sodium 140 mmol/L (136-145)
[2019-01-09 12:36] LABS: ALT 33 U/L (14-59); AST 40 U/L (15-37); Albumin 2.1 g/dL (3.4-5.0); Alkaline Phosphatase 94 U/L (46-116); Anion Gap 14.3 mmol/L (3-11); BUN 15 mg/dL (7-18); Bilirubin, Direct 0.17 mg/dL (0.00-0.20); Bilirubin, Total 0.4 mg/dL (0.2-1.0); CO2 18.7 mmol/L (21.0-32.0); CREATININE 0.75 mg/dL (0.55-1.02); Calcium 7.5 mg/dL (8.5-10.1); Chloride 111 mmol/L (98-107); FREE T4 0.88 ng/dL (0.76-1.46); Glucose 107 mg/dL (70-100); Magnesium 1.5 mg/dL (1.8-2.4); PHOSPHORUS 3.3 mg/dL (2.6-4.7); Potassium 3.6 mmol/L (3.5-5.1); Sodium 144 mmol/L (136-145); TSH 10.06 uIU/mL (0.36-3.74); Total Protein 6.1 g/dL (6.4-8.2)
[2019-01-09 15:22] LABS: Abs Immature Grans 0.02 k/cumm (0.0-0.09); Absolute Basophil Count 0.04 k/cumm (0.0-0.2); Absolute Eosinophil Count 0.01 k/cumm (0.0-0.7); Absolute Lymphocyte Count 0.95 k/cumm (1.2-3.4); Absolute Monocyte Count 0.66 k/cumm (0.11-0.7); Absolute Neutrophil Count 6.63 k/cumm (1.2-6.7); Basophils % 0.5; Eosinophils % 0.1; HCT 32.1 % (36.0-46.0); HGB 10.4 g/dL (12.0-15.5); Immature Grans % 0.2; Lymphocytes % 11.4; Mean Corp. HGB Concentration 32.4 g/dL (32.0-36.0); Mean Corpuscular Hemoglobin 32.3 pg (27.0-33.0); Mean Corpuscular Volume 99.7 fL (80-95); Mean Platelet Volume 10.7 fL (8.0-11.0); Monocytes % 7.9; Neutrophils % 79.9; Platelet Count 372 x1000/uL (130-400); RBC 3.22 m/cumm (4.00-5.20); RBC Distribution Width 17.5 % (11.7-14.6); White Blood Cell Count 8.31 k/cumm (4.4-10.8)
[2019-01-09 17:10] LABS: T3, Total 60 ng/dl (97-169)
[2019-01-12 17:38] LABS: Copper, Serum 0.39 mcg/mL (0.75-1.45); Zinc, Serum 0.49 mcg/mL (0.66-1.10)
[2019-01-16] MEDS: Normal Saline Flush 10 ML SYR IVP (08:30)
[2019-01-16] MEDS: IRON SUCROSE COMPLEX 200 MG in Normal Saline 100 ML 110 MG IVPB (09:00)
== END 2019-01-22 23:59 | disposition home or self-care (01) ==
LOC: INF 02:26
PROVIDERS: Internal Medicine Gastroenterology; PCP Family Medicine; Visit Provider Internal Medicine
DX: D50.0 Iron deficiency anemia secondary to blood loss (chronic) (principal); K90.9 Intestinal malabsorption, unspecified; E03.9 Hypothyroidism, unspecified; K91.2 Postsurgical malabsorption, not elsewhere classified; E87.6 Hypokalemia
CPT/HCPCS: 36415; 80048; 80053; 80076; 96365; 82525; 83735; 84100; 84439; 84443; 84480; 84630; 85025; J1756

== ENCOUNTER 2019-01-20 09:53 | Outpatient (CLI) | payer BC, SELFPAY ==
--- NOTE | 2019-01-20 09:50 | DI.RAD_ITS ---
EXAM: XR KNEE LT 2V AP,LAT INDICATION: f/u. COMPARISON: XR KNEE LT 2V AP,LAT from 12/23/2018 TECHNIQUE: 2D digital imaging was performed. FINDINGS: There is again seen a sideplate and screws transfixing the lateral tibial plateau fracture. The frac ture is unchanged compared to the prior examination. Moderate degenerative changes are present in th e knee. No new fracture or dislocation is present. IMPRESSION: Stable lateral tibial plateau fracture.
== END 2019-01-20 10:13 ==
PROVIDERS: PCP Family Medicine; Visit Provider Orthopaedic Surgery
DX: S82.142D Displaced bicondylar fracture of left tibia, subsequent encounter for closed fracture with routine healing (principal); M17.12 Unilateral primary osteoarthritis, left knee
CPT/HCPCS: 73560

== ENCOUNTER 2019-02-20 02:04 | Outpatient (RCR) | payer BC, SELFPAY ==
[2019-01-23 09:34] LABS: Abs Immature Grans 0.01 k/cumm (0.0-0.09); Absolute Basophil Count 0.08 k/cumm (0.0-0.2); Absolute Eosinophil Count 0.04 k/cumm (0.0-0.7); Absolute Lymphocyte Count 1.37 k/cumm (1.2-3.4); Absolute Monocyte Count 0.46 k/cumm (0.11-0.7); Absolute Neutrophil Count 5.34 k/cumm (1.2-6.7); Basophils % 1.1; Eosinophils % 0.5; HGB 10.8 g/dL (12.0-15.5); Immature Grans % 0.1; Lymphocytes % 18.8; Mean Corp. HGB Concentration 32.7 g/dL (32.0-36.0); Mean Corpuscular Hemoglobin 32.5 pg (27.0-33.0); Mean Corpuscular Volume 99.4 fL (80-95); Monocytes % 6.3; Neutrophils % 73.2; Platelet Count 291 x1000/uL (130-400); RBC 3.32 m/cumm (4.00-5.20); RBC Distribution Width 15.3 % (11.7-14.6)
[2019-01-23 09:46] LABS: ALT 39 U/L (14-59); AST 39 U/L (15-37); Alkaline Phosphatase 82 U/L (46-116); Anion Gap 7.4 mmol/L (3-11); BUN 19 mg/dL (7-18); Bilirubin, Direct 0.24 mg/dL (0.00-0.20); Bilirubin, Total 0.5 mg/dL (0.2-1.0); CO2 24.6 mmol/L (21.0-32.0); CREATININE 0.69 mg/dL (0.55-1.02); Calcium 7.6 mg/dL (8.5-10.1); Chloride 108 mmol/L (98-107); Glucose 85 mg/dL (70-100); Magnesium 1.6 mg/dL (1.8-2.4); PHOSPHORUS 2.5 mg/dL (2.6-4.7); Potassium 3.7 mmol/L (3.5-5.1); Sodium 140 mmol/L (136-145); Total Protein 5.7 g/dL (6.4-8.2)
[2019-02-06 10:55] LABS: Anion Gap 10.6 mmol/L (3-11); BUN 12 mg/dL (7-18); CO2 20.4 mmol/L (21.0-32.0); CREATININE 0.63 mg/dL (0.55-1.02); Calcium 7.7 mg/dL (8.5-10.1); Chloride 109 mmol/L (98-107); Glucose 84 mg/dL (70-100); Magnesium 1.5 mg/dL (1.8-2.4); Sodium 140 mmol/L (136-145)
[2019-02-09 20:53] LABS: Zinc, Serum 0.64 mcg/mL (0.66-1.10)
[2019-02-20] MEDS: Normal Saline Flush 10 ML SYR IVP (10:30)
== END 2019-02-21 23:59 | disposition home or self-care (01) ==
LOC: INF 02:04
PROVIDERS: Internal Medicine Gastroenterology; PCP Family Medicine; Visit Provider Internal Medicine
DX: E87.6 Hypokalemia (principal); R19.7 Diarrhea, unspecified; K91.2 Postsurgical malabsorption, not elsewhere classified; D50.0 Iron deficiency anemia secondary to blood loss (chronic); E61.0 Copper deficiency
CPT/HCPCS: 36415; 80048; 80053; 80076; 96365; 96366; 82525; 83735; 84100; 84630; 85025

== ENCOUNTER 2019-03-03 11:13 | Outpatient (CLI) | payer BC, SELFPAY ==
--- NOTE | 2019-03-03 11:01 | DI.RAD_ITS ---
EXAM: XR KNEE LT 2V AP,LAT INDICATION: tib plateau fx. COMPARISON: No exams were available for comparison TECHNIQUE: 2D digital imaging was performed. FINDINGS: There has been no change in the hardware in the proximal tibia or tibial plateau fracture. Degenerat bobo changes of the femoral tibial and patellofemoral joints are again noted.
== END 2019-03-03 11:33 ==
PROVIDERS: PCP Family Medicine; Visit Provider Physician Assistant
DX: S82.142D Displaced bicondylar fracture of left tibia, subsequent encounter for closed fracture with routine healing (principal)
CPT/HCPCS: 73560

== ENCOUNTER 2019-03-20 04:49 | Outpatient (RCR) | payer BC, SELFPAY ==
[2019-03-06] MEDS: IRON SUCROSE COMPLEX 200 MG in Normal Saline 100 ML 110 MG IVPB (10:23)
[2019-03-06] MEDS: Normal Saline Flush 10 ML SYR IVP (10:23)
[2019-03-06 10:31] LABS: Abs Immature Grans 0.01 k/cumm (0.0-0.09); Absolute Basophil Count 0.11 k/cumm (0.0-0.2); Absolute Eosinophil Count 0.07 k/cumm (0.0-0.7); Absolute Lymphocyte Count 1.43 k/cumm (1.2-3.4); Absolute Monocyte Count 0.59 k/cumm (0.11-0.7); Absolute Neutrophil Count 5.72 k/cumm (1.2-6.7); Basophils % 1.4; Eosinophils % 0.9; HCT 31.9 % (36.0-46.0); HGB 10.5 g/dL (12.0-15.5); Immature Grans % 0.1; Mean Corp. HGB Concentration 32.9 g/dL (32.0-36.0); Mean Corpuscular Hemoglobin 32.7 pg (27.0-33.0); Mean Corpuscular Volume 99.4 fL (80-95); Mean Platelet Volume 10.3 fL (8.0-11.0); Monocytes % 7.4; Neutrophils % 72.2; Platelet Count 324 x1000/uL (130-400); RBC 3.21 m/cumm (4.00-5.20); RBC Distribution Width 15.2 % (11.7-14.6); White Blood Cell Count 7.93 k/cumm (4.4-10.8)
[2019-03-06 10:51] LABS: ALT 39 U/L (14-59); AST 32 U/L (15-37); Albumin 2.1 g/dL (3.4-5.0); Alkaline Phosphatase 79 U/L (46-116); Anion Gap 12.4 mmol/L (3-11); BUN 14 mg/dL (7-18); Bilirubin, Direct 0.22 mg/dL (0.00-0.20); Bilirubin, Total 0.4 mg/dL (0.2-1.0); CO2 18.6 mmol/L (21.0-32.0); CREATININE 0.67 mg/dL (0.55-1.02); Calcium 7.5 mg/dL (8.5-10.1); Chloride 111 mmol/L (98-107); Glucose 88 mg/dL (74-106); PHOSPHORUS 3.3 mg/dL (2.6-4.7); Potassium 3.2 mmol/L (3.5-5.1); Sodium 142 mmol/L (136-145); Total Protein 5.5 g/dL (6.4-8.2)
[2019-03-09 14:56] LABS: Copper, Serum 0.32 mcg/mL (0.75-1.45); Zinc, Serum 0.49 mcg/mL (0.66-1.10)
[2019-03-20] MEDS: Normal Saline Flush 10 ML SYR IVP (11:23)
[2019-03-20 11:24] LABS: Anion Gap 11.3 mmol/L (3-11); BUN 15 mg/dL (7-18); CO2 21.7 mmol/L (21.0-32.0); CREATININE 0.67 mg/dL (0.55-1.02); Calcium 8.2 mg/dL (8.5-10.1); Chloride 111 mmol/L (98-107); Glucose 83 mg/dL (74-106); Magnesium 1.5 mg/dL (1.8-2.4); PHOSPHORUS 2.5 mg/dL (2.6-4.7); Potassium 3.7 mmol/L (3.5-5.1); Sodium 144 mmol/L (136-145)
== END 2019-03-24 23:59 | disposition home or self-care (01) ==
LOC: INF 04:49
PROVIDERS: Internal Medicine Gastroenterology; PCP Family Medicine; Visit Provider Internal Medicine
DX: D50.9 Iron deficiency anemia, unspecified (principal); E87.6 Hypokalemia; R19.7 Diarrhea, unspecified; K91.2 Postsurgical malabsorption, not elsewhere classified
CPT/HCPCS: 36415; 80048; 80076; 96365; 96366; 82525; 83735; 84100; 84630; 85025; J1756

== ENCOUNTER 2019-04-23 11:30 | Outpatient (RCR) | payer BC, SELFPAY ==
[2019-04-07 11:47] LABS: Abs Immature Grans 0.03 k/cumm (0.0-0.09); Absolute Basophil Count 0.04 k/cumm (0.0-0.2); Absolute Eosinophil Count 0.05 k/cumm (0.0-0.7); Absolute Lymphocyte Count 1.62 k/cumm (1.2-3.4); Absolute Monocyte Count 0.75 k/cumm (0.11-0.7); Absolute Neutrophil Count 5.98 k/cumm (1.2-6.7); Basophils % 0.5; Eosinophils % 0.6; HCT 27.8 % (36.0-46.0); HGB 9.3 g/dL (12.0-15.5); Immature Grans % 0.4 %; Lymphocytes % 19.1; Mean Corp. HGB Concentration 33.5 g/dL (32.0-36.0); Mean Corpuscular Hemoglobin 32.4 pg (27.0-33.0); Mean Corpuscular Volume 96.9 fL (80-95); Mean Platelet Volume 9.9 fL (8.0-11.0); Monocytes % 8.9; Neutrophils % 70.5; Platelet Count 394 x1000/uL (130-400); RBC 2.87 m/cumm (4.00-5.20); RBC Distribution Width 14.8 % (11.7-14.6); White Blood Cell Count 8.47 k/cumm (4.4-10.8)
[2019-04-07 11:57] LABS: Diff Comment RBC Morph Reviewed
[2019-04-07 12:00] LABS: Anisocytosis 1+
[2019-04-07 12:01] LABS: Hypochromasia 2+; Schistocytes 1+
[2019-04-07 12:02] LABS: Poikilocytes 1+
[2019-04-07 12:11] LABS: ALT 28 U/L (14-59); AST 28 U/L (15-37); Alkaline Phosphatase 112 U/L (46-116); Anion Gap 12.9 mmol/L (3-11); BUN 14 mg/dL (7-18); Bilirubin, Direct 0.22 mg/dL (0.00-0.20); Bilirubin, Total 0.5 mg/dL (0.2-1.0); CO2 21.1 mmol/L (21.0-32.0); CREATININE 0.51 mg/dL (0.55-1.02); Calcium 7.9 mg/dL (8.5-10.1); Chloride 108 mmol/L (98-107); FREE T4 0.78 ng/dL (0.76-1.46); Glucose 91 mg/dL (74-106); Magnesium 1.3 mg/dL (1.8-2.4); PHOSPHORUS 2.8 mg/dL (2.6-4.7); Potassium 3.9 mmol/L (3.5-5.1); Sodium 142 mmol/L (136-145); TSH 3.38 uIU/mL (0.36-3.74); Total Protein 5.4 g/dL (6.4-8.2)
[2019-04-07 22:26] LABS: T3, Total 59 ng/dL (97-169)
[2019-04-08 18:18] LABS: Copper, Serum 0.29 mcg/mL (0.75-1.45); Zinc, Serum 0.44 mcg/mL (0.66-1.10)
[2019-04-17] MEDS: Normal Saline Flush 10 ML SYR IVP (10:47)
[2019-04-17 13:27] LABS: Anion Gap 10.3 mmol/L (3-11); BUN 16 mg/dL (7-18); CO2 21.7 mmol/L (21.0-32.0); CREATININE 0.63 mg/dL (0.55-1.02); Calcium 7.2 mg/dL (8.5-10.1); Chloride 111 mmol/L (98-107); Glucose 98 mg/dL (74-106); Magnesium 1.3 mg/dL (1.8-2.4); PHOSPHORUS 3.5 mg/dL (2.6-4.7); Potassium 4.1 mmol/L (3.5-5.1); Sodium 143 mmol/L (136-145)
[2019-04-23] MEDS: Normal Saline Flush 10 ML SYR IVP (12:52)
== END 2019-04-24 23:59 | disposition home or self-care (01) ==
LOC: INF 11:30
PROVIDERS: Internal Medicine Gastroenterology; PCP Family Medicine; Visit Provider Family Medicine
DX: E87.6 Hypokalemia (principal); R19.7 Diarrhea, unspecified; D50.0 Iron deficiency anemia secondary to blood loss (chronic); K91.2 Postsurgical malabsorption, not elsewhere classified; K90.9 Intestinal malabsorption, unspecified
CPT/HCPCS: 36415; 80048; 80076; 96365; 96366; 82525; 83735; 84100; 84439; 84443; 84480; 84630; 85025

== ENCOUNTER 2019-05-21 09:30 | Outpatient (RCR) | payer BC, SELFPAY ==
[2019-05-01] MEDS: Normal Saline Flush 10 ML SYR IVP (11:19)
[2019-05-01 11:42] LABS: Abs Immature Grans 0.01 k/cumm (0.0-0.09); Absolute Basophil Count 0.08 k/cumm (0.0-0.2); Absolute Eosinophil Count 0.03 k/cumm (0.0-0.7); Absolute Lymphocyte Count 1.37 k/cumm (1.2-3.4); Absolute Neutrophil Count 5.66 k/cumm (1.2-6.7); Eosinophils % 0.4; HGB 11.2 g/dL (12.0-15.5); Immature Grans % 0.1 %; Lymphocytes % 17.7; Mean Corpuscular Hemoglobin 32.5 pg (27.0-33.0); Mean Corpuscular Volume 101.4 fL (80-95); Mean Platelet Volume 10.5 fL (8.0-11.0); Monocytes % 7.7; Neutrophils % 73.1; Platelet Count 277 x1000/uL (130-400); RBC 3.45 m/cumm (4.00-5.20); White Blood Cell Count 7.75 k/cumm (4.4-10.8)
[2019-05-01 11:45] LABS: ALT 38 U/L (14-59); AST 45 U/L (15-37); Albumin 2.3 g/dL (3.4-5.0); Alkaline Phosphatase 94 U/L (46-116); Anion Gap 11.8 mmol/L (3-11); BUN 15 mg/dL (7-18); Bilirubin, Direct 0.22 mg/dL (0.00-0.20); Bilirubin, Total 0.4 mg/dL (0.2-1.0); CO2 21.2 mmol/L (21.0-32.0); CREATININE 0.69 mg/dL (0.55-1.02); Calcium 7.7 mg/dL (8.5-10.1); Chloride 107 mmol/L (98-107); Glucose 83 mg/dL (74-106); Magnesium 1.5 mg/dL (1.8-2.4); PHOSPHORUS 3.3 mg/dL (2.6-4.7); Sodium 140 mmol/L (136-145); Total Protein 5.8 g/dL (6.4-8.2)
[2019-05-04 14:26] LABS: Zinc, Serum 0.54 mcg/mL (0.66-1.10)
[2019-05-04 15:12] LABS: Copper, Serum 0.39 mcg/mL (0.75-1.45)
[2019-05-08] MEDS: Normal Saline Flush 10 ML SYR IVP (11:10)
[2019-05-08 11:26] LABS: Anion Gap 10.8 mmol/L (3-11); BUN 14 mg/dL (7-18); CO2 23.2 mmol/L (21.0-32.0); CREATININE 0.58 mg/dL (0.55-1.02); Chloride 106 mmol/L (98-107); Glucose 96 mg/dL (74-106); Magnesium 1.3 mg/dL (1.8-2.4); PHOSPHORUS 2.9 mg/dL (2.6-4.7); Potassium 3.5 mmol/L (3.5-5.1); Sodium 140 mmol/L (136-145)
[2019-05-08] MEDS: IRON SUCROSE COMPLEX 200 MG in Normal Saline 100 ML 440 MG IVPB (13:24)
[2019-05-21] MEDS: Normal Saline Flush 10 ML SYR IVP (14:16)
[2019-05-21 14:56] LABS: Anion Gap 8.4 mmol/L (3-11); BUN 16 mg/dL (7-18); CO2 22.6 mmol/L (21.0-32.0); CREATININE 0.61 mg/dL (0.55-1.02); Calcium 7.8 mg/dL (8.5-10.1); Chloride 109 mmol/L (98-107); Glucose 78 mg/dL (74-106); Magnesium 1.3 mg/dL (1.8-2.4); PHOSPHORUS 2.4 mg/dL (2.6-4.7); Potassium 3.7 mmol/L (3.5-5.1); Sodium 140 mmol/L (136-145)
== END 2019-05-23 23:59 | disposition home or self-care (01) ==
LOC: INF 09:30
PROVIDERS: Internal Medicine Gastroenterology; PCP Family Medicine; Visit Provider Family Medicine
DX: D50.9 Iron deficiency anemia, unspecified (principal); E87.6 Hypokalemia; R19.7 Diarrhea, unspecified; K91.2 Postsurgical malabsorption, not elsewhere classified; K90.9 Intestinal malabsorption, unspecified
CPT/HCPCS: 36415; 80048; 80076; 96365; 96366; 82525; 83735; 84100; 84630; 85025; J1756

== ENCOUNTER 2019-06-19 03:46 | Outpatient (RCR) | payer BC, SELFPAY ==
[2019-05-29] MEDS: Normal Saline Flush 10 ML SYR IVP (11:39)
[2019-05-29 11:52] LABS: Mean Corp. HGB Concentration 33.3 g/dL (32.0-36.0); Mean Corpuscular Hemoglobin 31.3 pg (27.0-33.0); Mean Corpuscular Volume 93.8 fL (80-95); Mean Platelet Volume 10.1 fL (8.0-11.0); Platelet Count 446 x1000/uL (130-400); RBC Distribution Width 14.7 % (11.7-14.6); White Blood Cell Count 7.69 k/cumm (4.4-10.8)
[2019-05-29 12:04] LABS: ALT 26 U/L (14-59); AST 32 U/L (15-37); Albumin 2.2 g/dL (3.4-5.0); Alkaline Phosphatase 90 U/L (46-116); Anion Gap 10.7 mmol/L (3-11); BUN 13 mg/dL (7-18); Bilirubin, Direct 0.19 mg/dL (0.00-0.20); Bilirubin, Total 0.5 mg/dL (0.2-1.0); CO2 22.3 mmol/L (21.0-32.0); CREATININE 0.53 mg/dL (0.55-1.02); Calcium 7.5 mg/dL (8.5-10.1); Chloride 107 mmol/L (98-107); Glucose 78 mg/dL (74-106); Magnesium 0.9 mg/dL (1.8-2.4); Potassium 3.5 mmol/L (3.5-5.1); Sodium 140 mmol/L (136-145)
[2019-05-29 12:17] LABS: Absolute Lymphocyte Count 1.85 k/cumm (1.2-3.4); Absolute Monocyte Count 0.38 k/cumm (0.11-0.7); Absolute Neutrophil Count 5.46 k/cumm (1.2-6.7); Atypical Lymphocytes % 5
[2019-05-29 12:18] LABS: Diff Comment Manual Differential
[2019-05-29 12:19] LABS: Anisocytosis 1+; Polychromasia Present
[2019-05-30 16:27] LABS: Copper, Serum 0.57 mcg/mL (0.75-1.45); Zinc, Serum 0.52 mcg/mL (0.66-1.10)
[2019-06-05 10:43] LABS: Anion Gap 12.1 mmol/L (3-11); BUN 10 mg/dL (7-18); CO2 20.9 mmol/L (21.0-32.0); CREATININE 0.62 mg/dL (0.55-1.02); Calcium 7.5 mg/dL (8.5-10.1); Chloride 107 mmol/L (98-107); Glucose 90 mg/dL (74-106); PHOSPHORUS 2.8 mg/dL (2.6-4.7); Potassium 3.4 mmol/L (3.5-5.1); Sodium 140 mmol/L (136-145)
[2019-06-05] MEDS: Normal Saline Flush 10 ML SYR IVP (10:48)
[2019-06-12] MEDS: Normal Saline Flush 10 ML SYR IVP (08:55)
[2019-06-12 11:29] LABS: Anion Gap 10.3 mmol/L (3-11); BUN 16 mg/dL (7-18); CO2 21.7 mmol/L (21.0-32.0); CREATININE 0.49 mg/dL (0.55-1.02); Chloride 109 mmol/L (98-107); Glucose 72 mg/dL (74-106); Magnesium 1.2 mg/dL (1.8-2.4); PHOSPHORUS 2.8 mg/dL (2.6-4.7); Potassium 3.9 mmol/L (3.5-5.1); Sodium 141 mmol/L (136-145)
[2019-06-19] MEDS: Normal Saline Flush 10 ML SYR IVP (10:00)
[2019-06-19 10:27] LABS: Anion Gap 12.4 mmol/L (3-11); BUN 16 mg/dL (7-18); CO2 20.6 mmol/L (21.0-32.0); CREATININE 0.56 mg/dL (0.55-1.02); Calcium 8.2 mg/dL (8.5-10.1); Chloride 106 mmol/L (98-107); Glucose 88 mg/dL (74-106); Magnesium 1.4 mg/dL (1.8-2.4); PHOSPHORUS 3.1 mg/dL (2.6-4.7); Potassium 4.2 mmol/L (3.5-5.1); Sodium 139 mmol/L (136-145)
== END 2019-06-23 23:59 | disposition home or self-care (01) ==
LOC: INF 03:46
PROVIDERS: Internal Medicine Gastroenterology; PCP Family Medicine; Visit Provider Family Medicine
DX: E87.6 Hypokalemia (principal); R19.7 Diarrhea, unspecified; D50.0 Iron deficiency anemia secondary to blood loss (chronic); K91.2 Postsurgical malabsorption, not elsewhere classified
CPT/HCPCS: 36415; 80048; 80076; 96365; 96366; 82525; 83735; 84100; 84630; 85025

== ENCOUNTER 2019-07-17 03:33 | Outpatient (RCR) | payer BC, SELFPAY ==
[2019-06-26] MEDS: Normal Saline Flush 10 ML SYR IVP (09:33)
[2019-07-03 10:20] LABS: Abs Immature Grans 0.02 k/cumm (0.0-0.09); Absolute Basophil Count 0.06 k/cumm (0.0-0.2); Absolute Eosinophil Count 0.13 k/cumm (0.0-0.7); Absolute Lymphocyte Count 1.61 k/cumm (1.2-3.4); Absolute Monocyte Count 0.74 k/cumm (0.11-0.7); Basophils % 0.5; Eosinophils % 1.1; HCT 36.6 % (36.0-46.0); HGB 12.3 g/dL (12.0-15.5); Immature Grans % 0.2 %; Lymphocytes % 13.2; Mean Corp. HGB Concentration 33.6 g/dL (32.0-36.0); Mean Corpuscular Volume 95.3 fL (80-95); Mean Platelet Volume 10.5 fL (8.0-11.0); Monocytes % 6.1; Neutrophils % 78.9; Platelet Count 478 x1000/uL (130-400); RBC 3.84 m/cumm (4.00-5.20); RBC Distribution Width 14.5 % (11.7-14.6); White Blood Cell Count 12.17 k/cumm (4.4-10.8)
[2019-07-03 10:31] LABS: ALT 33 U/L (14-59); AST 24 U/L (15-37); Albumin 2.8 g/dL (3.4-5.0); Alkaline Phosphatase 123 U/L (46-116); Anion Gap 12.9 mmol/L (3-11); BUN 14 mg/dL (7-18); Bilirubin, Direct 0.19 mg/dL (0.00-0.20); Bilirubin, Total 0.5 mg/dL (0.2-1.0); CO2 20.1 mmol/L (21.0-32.0); CREATININE 0.59 mg/dL (0.55-1.02); Calcium 8.5 mg/dL (8.5-10.1); Chloride 106 mmol/L (98-107); FREE T4 0.87 ng/dL (0.76-1.46); Glucose 86 mg/dL (74-106); Magnesium 1.3 mg/dL (1.8-2.4); PHOSPHORUS 2.5 mg/dL (2.6-4.7); Potassium 3.3 mmol/L (3.5-5.1); Sodium 139 mmol/L (136-145); TSH 3.65 uIU/mL (0.36-3.74); Total Protein 7.4 g/dL (6.4-8.2)
[2019-07-03 16:25] LABS: T3, Total 66 ng/dL (97-169)
[2019-07-04 13:05] LABS: Copper, Serum 0.62 mcg/mL (0.75-1.45); Zinc, Serum 0.64 mcg/mL (0.66-1.10)
[2019-07-10 09:50] LABS: Anion Gap 10.6 mmol/L (3-11); BUN 14 mg/dL (7-18); CO2 22.4 mmol/L (21.0-32.0); CREATININE 0.59 mg/dL (0.55-1.02); Calcium 8.1 mg/dL (8.5-10.1); Chloride 105 mmol/L (98-107); Glucose 84 mg/dL (74-106); Magnesium 1.2 mg/dL (1.8-2.4); PHOSPHORUS 2.8 mg/dL (2.6-4.7); Potassium 4.2 mmol/L (3.5-5.1); Sodium 138 mmol/L (136-145)
[2019-07-10] MEDS: IRON SUCROSE COMPLEX 200 MG in Normal Saline 100 ML 440 MG IVPB (11:36)
[2019-07-10] MEDS: Normal Saline Flush 10 ML SYR IVP (11:40)
== END 2019-07-23 23:59 | disposition home or self-care (01) ==
LOC: INF 03:33
PROVIDERS: Internal Medicine Gastroenterology; PCP Family Medicine; Visit Provider Family Medicine
DX: D50.0 Iron deficiency anemia secondary to blood loss (chronic) (principal); E87.6 Hypokalemia; R19.7 Diarrhea, unspecified; K91.2 Postsurgical malabsorption, not elsewhere classified; K90.9 Intestinal malabsorption, unspecified; E61.0 Copper deficiency
CPT/HCPCS: 36415; 80048; 80076; 96365; 96366; 82525; 83735; 84100; 84439; 84443; 84480; 84630; 85025; J1756

== ENCOUNTER 2019-08-13 03:11 | Outpatient (RCR) | payer BC, SELFPAY ==
[2019-07-24 10:44] LABS: Anion Gap 10.6 mmol/L (3-11); BUN 10 mg/dL (7-18); CO2 22.4 mmol/L (21.0-32.0); CREATININE 0.67 mg/dL (0.55-1.02); Calcium 8.2 mg/dL (8.5-10.1); Chloride 105 mmol/L (98-107); Glucose 78 mg/dL (74-106); Magnesium 1.3 mg/dL (1.8-2.4); PHOSPHORUS 3.1 mg/dL (2.6-4.7); Potassium 3.6 mmol/L (3.5-5.1); Sodium 138 mmol/L (136-145)
[2019-07-24] MEDS: Normal Saline Flush 10 ML SYR IVP (11:04)
[2019-07-31] MEDS: Normal Saline Flush 10 ML SYR IVP (10:13)
[2019-07-31 10:20] LABS: INR 1.2 (0.9-1.1); Prothrombin Time 11.8 sec (9.3-11.0)
[2019-07-31 10:23] LABS: ALT 45 U/L (14-59); AST 42 U/L (15-37); Albumin 2.4 g/dL (3.4-5.0); Alkaline Phosphatase 88 U/L (46-116); Anion Gap 11.2 mmol/L (3-11); BUN 14 mg/dL (7-18); Bilirubin, Direct 0.15 mg/dL (0.00-0.20); Bilirubin, Total 0.5 mg/dL (0.2-1.0); CO2 20.8 mmol/L (21.0-32.0); CREATININE 0.63 mg/dL (0.55-1.02); Calcium 7.9 mg/dL (8.5-10.1); Chloride 105 mmol/L (98-107); Glucose 87 mg/dL (74-106); Magnesium 1.3 mg/dL (1.8-2.4); PHOSPHORUS 3.2 mg/dL (2.6-4.7); Potassium 3.2 mmol/L (3.5-5.1); Sodium 137 mmol/L (136-145); Total Protein 6.2 g/dL (6.4-8.2)
[2019-08-03 15:29] LABS: Zinc, Serum 0.55 mcg/mL (0.66-1.10)
[2019-08-03 20:50] LABS: Copper, Serum 0.41 mcg/mL (0.75-1.45)
[2019-08-13] MEDS: Normal Saline Flush 10 ML SYR IVP (10:05)
[2019-08-13 12:58] LABS: Anion Gap 8.8 mmol/L (3-11); BUN 24 mg/dL (7-18); CO2 22.2 mmol/L (21.0-32.0); CREATININE 0.65 mg/dL (0.55-1.02); Chloride 109 mmol/L (98-107); Glucose 80 mg/dL (74-106); Magnesium 1.1 mg/dL (1.8-2.4); PHOSPHORUS 3.7 mg/dL (2.6-4.7); Potassium 3.8 mmol/L (3.5-5.1); Sodium 140 mmol/L (136-145)
== END 2019-08-23 23:59 | disposition home or self-care (01) ==
LOC: INF 03:11
PROVIDERS: Internal Medicine Gastroenterology; PCP Family Medicine; Visit Provider Family Medicine
DX: E87.6 Hypokalemia (principal); K50.00 Crohn's disease of small intestine without complications; K91.2 Postsurgical malabsorption, not elsewhere classified; R19.2 Visible peristalsis; K90.9 Intestinal malabsorption, unspecified; D64.9 Anemia, unspecified; E43 Unspecified severe protein-calorie malnutrition
CPT/HCPCS: 36415; 80048; 80076; 96365; 96366; 82525; 83735; 84100; 84630; 85610

== ENCOUNTER 2019-09-18 04:16 | Outpatient (RCR) | payer BC, SELFPAY ==
[2019-09-02] MEDS: Normal Saline Flush 10 ML SYR IVP ×2 (09:44→10:57)
[2019-09-02 11:16] LABS: ALT 47 U/L (14-59); AST 41 U/L (15-37); Albumin 2.8 g/dL (3.4-5.0); Alkaline Phosphatase 127 U/L (46-116); Anion Gap 12.9 mmol/L (3-11); BUN 14 mg/dL (7-18); Bilirubin, Direct 0.13 mg/dL (0.00-0.20); Bilirubin, Total 0.3 mg/dL (0.2-1.0); CO2 18.1 mmol/L (21.0-32.0); CREATININE 0.69 mg/dL (0.55-1.02); Calcium 8.5 mg/dL (8.5-10.1); Chloride 107 mmol/L (98-107); Glucose 91 mg/dL (74-106); Magnesium 1.3 mg/dL (1.8-2.4); PHOSPHORUS 3.7 mg/dL (2.6-4.7); Potassium 3.8 mmol/L (3.5-5.1); Sodium 138 mmol/L (136-145); Total Protein 7.3 g/dL (6.4-8.2)
[2019-09-03 19:26] LABS: Copper, Serum 0.51 mcg/mL (0.75-1.45); Zinc, Serum 0.69 mcg/mL (0.66-1.10)
[2019-09-11] MEDS: IRON SUCROSE COMPLEX 200 MG in Normal Saline 100 ML 440 MG IVPB (09:52)
[2019-09-11] MEDS: Normal Saline Flush 10 ML SYR IVP (10:18)
[2019-09-11 12:45] LABS: Anion Gap 15.9 mmol/L (3-11); BUN 6 mg/dL (7-18); CO2 13.1 mmol/L (21.0-32.0); CREATININE 0.64 mg/dL (0.55-1.02); Calcium 7.6 mg/dL (8.5-10.1); Chloride 109 mmol/L (98-107); Glucose 88 mg/dL (74-106); Magnesium 1.2 mg/dL (1.8-2.4); PHOSPHORUS 2.7 mg/dL (2.6-4.7); Potassium 3.2 mmol/L (3.5-5.1); Sodium 138 mmol/L (136-145)
[2019-09-18] MEDS: Normal Saline Flush 10 ML SYR IVP (09:51)
[2019-09-18 10:22] LABS: Anion Gap 12.4 mmol/L (3-11); BUN 14 mg/dL (7-18); CO2 16.6 mmol/L (21.0-32.0); CREATININE 0.72 mg/dL (0.55-1.02); Calcium 7.8 mg/dL (8.5-10.1); Chloride 110 mmol/L (98-107); Glucose 100 mg/dL (74-106); Magnesium 1.2 mg/dL (1.8-2.4); PHOSPHORUS 1.8 mg/dL (2.6-4.7); Potassium 3.4 mmol/L (3.5-5.1); Sodium 139 mmol/L (136-145)
== END 2019-09-22 23:59 | disposition home or self-care (01) ==
LOC: INF 04:16
PROVIDERS: Internal Medicine Gastroenterology; PCP Family Medicine; Visit Provider Family Medicine
DX: K91.2 Postsurgical malabsorption, not elsewhere classified (principal); D64.9 Anemia, unspecified; E43 Unspecified severe protein-calorie malnutrition
CPT/HCPCS: 36415; 80048; 80076; 96365; 96366; 82525; 83735; 84100; 84630; J1756

== ENCOUNTER 2019-10-16 04:13 | Outpatient (RCR) | payer BC, SELFPAY ==
[2019-10-02 10:55] LABS: ALT 43 U/L (14-59); AST 42 U/L (15-37); Albumin 2.6 g/dL (3.4-5.0); Alkaline Phosphatase 128 U/L (46-116); Anion Gap 15.1 mmol/L (3-11); BUN 13 mg/dL (7-18); Bilirubin, Direct 0.13 mg/dL (0.00-0.20); Bilirubin, Total 0.3 mg/dL (0.2-1.0); CO2 13.9 mmol/L (21.0-32.0); Calcium 8.2 mg/dL (8.5-10.1); Chloride 109 mmol/L (98-107); FREE T4 0.75 ng/dL (0.76-1.46); Glucose 86 mg/dL (74-106); Magnesium 1.4 mg/dL (1.8-2.4); Potassium 3.9 mmol/L (3.5-5.1); Sodium 138 mmol/L (136-145); TSH 2.69 uIU/mL (0.36-3.74); Total Protein 6.9 g/dL (6.4-8.2)
[2019-10-02] MEDS: Normal Saline Flush 10 ML SYR IVP (12:46)
[2019-10-02 16:52] LABS: T3, Total 66 ng/dL (97-169)
[2019-10-05 18:09] LABS: Copper, Serum 0.55 mcg/mL (0.75-1.45)
[2019-10-05 18:25] LABS: Zinc, Serum 0.62 mcg/mL (0.66-1.10)
[2019-10-16 10:06] LABS: Anion Gap 14.4 mmol/L (3-11); BUN 12 mg/dL (7-18); CO2 16.6 mmol/L (21.0-32.0); CREATININE 0.58 mg/dL (0.55-1.02); Calcium 8.8 mg/dL (8.5-10.1); Chloride 105 mmol/L (98-107); Glucose 90 mg/dL (74-106); Magnesium 1.5 mg/dL (1.8-2.4); PHOSPHORUS 2.7 mg/dL (2.6-4.7); Sodium 136 mmol/L (136-145)
[2019-10-16] MEDS: Normal Saline Flush 10 ML SYR IVP (12:13)
== END 2019-10-23 23:59 | disposition home or self-care (01) ==
LOC: INF 04:13
PROVIDERS: Internal Medicine Gastroenterology; PCP Family Medicine; Visit Provider Family Medicine
DX: D50.0 Iron deficiency anemia secondary to blood loss (chronic) (principal); E87.6 Hypokalemia; K91.2 Postsurgical malabsorption, not elsewhere classified; K90.9 Intestinal malabsorption, unspecified; R19.7 Diarrhea, unspecified; E61.0 Copper deficiency; E03.9 Hypothyroidism, unspecified
CPT/HCPCS: 36415; 80048; 80076; 96365; 96366; 82525; 83735; 84100; 84439; 84443; 84480; 84630

== ENCOUNTER 2019-11-16 00:54 | Outpatient (RCR) | payer BC, SELFPAY ==
[2019-10-30] MEDS: Normal Saline Flush 10 ML SYR IVP (10:04)
[2019-10-30 10:23] LABS: ALT 80 U/L (14-59); AST 68 U/L (15-37); Albumin 2.8 g/dL (3.4-5.0); Alkaline Phosphatase 157 U/L (46-116); Anion Gap 14.1 mmol/L (3-11); BUN 13 mg/dL (7-18); Bilirubin, Direct 0.06 mg/dL (0.00-0.20); Bilirubin, Total 0.2 mg/dL (0.2-1.0); CO2 16.9 mmol/L (21.0-32.0); CREATININE 0.69 mg/dL (0.55-1.02); Calcium 8.4 mg/dL (8.5-10.1); Chloride 107 mmol/L (98-107); Glucose 77 mg/dL (74-106); Magnesium 1.2 mg/dL (1.8-2.4); PHOSPHORUS 2.7 mg/dL (2.6-4.7); Potassium 3.7 mmol/L (3.5-5.1); Sodium 138 mmol/L (136-145); Total Protein 7.2 g/dL (6.4-8.2)
[2019-11-02 15:29] LABS: Copper, Serum 0.65 mcg/mL (0.75-1.45); Zinc, Serum 0.65 mcg/mL (0.66-1.10)
[2019-11-16] MEDS: IRON SUCROSE COMPLEX 200 MG in Normal Saline 100 ML 440 MG IVPB (09:02)
[2019-11-16] MEDS: Normal Saline Flush 10 ML SYR IVP (09:03)
[2019-11-16 09:06] LABS: Abs Immature Grans 0.04 10^3/uL (0.0-0.06); Absolute Basophil Count 0.12 10^3/uL (0.0-0.2); Absolute Eosinophil Count 0.23 10^3/uL (0.0-0.7); Absolute Lymphocyte Count 2.73 10^3/uL (1.2-3.4); Absolute Monocyte Count 0.64 10^3/uL (0.1-0.8); Absolute Neutrophil Count 6.48 10^3/uL (1.2-6.7); Basophils % 1.2; Eosinophils % 2.2; HCT 36.3 % (36.0-46.0); HGB 11.4 g/dL (11.2-15.7); Immature Grans % 0.4; Lymphocytes % 26.7; MCH 31.7 pg (27.0-33.0); MCHC 31.4 % (32.0-36.0); MCV 100.8 fL (80-95); MPV 10.8 fL (8.0-11.0); Monocytes % 6.3; Neutrophils % 63.2; Nucleated RBC 0 %; Platelet Count 323 10^3/uL (130-400); RDW 14.1 % (11.7-14.6); RDW-SD 52.5 fL; WBC 10.24 10^3/uL (4.4-10.8)
[2019-11-16 09:18] LABS: Anion Gap 10.3 mmol/L (3-11); BUN 20 mg/dL (7-18); CO2 21.7 mmol/L (21.0-32.0); CREATININE 0.61 mg/dL (0.55-1.02); Calcium 8.4 mg/dL (8.5-10.1); Chloride 107 mmol/L (98-107); Glucose 80 mg/dL (74-106); Magnesium 1.3 mg/dL (1.8-2.4); Potassium 3.9 mmol/L (3.5-5.1); Sodium 139 mmol/L (136-145)
[2019-11-16 12:57] LABS: Hemoglobin A1C < 4.5 % (3.8-5.6)
== END 2019-11-23 23:59 | disposition home or self-care (01) ==
LOC: INF 00:54
PROVIDERS: Internal Medicine Gastroenterology; PCP Family Medicine; Visit Provider Family Medicine
DX: D50.0 Iron deficiency anemia secondary to blood loss (chronic) (principal); E87.6 Hypokalemia; K91.2 Postsurgical malabsorption, not elsewhere classified; K90.9 Intestinal malabsorption, unspecified; R19.7 Diarrhea, unspecified; E61.0 Copper deficiency
CPT/HCPCS: 36415; 80048; 80076; 96365; 96366; 82525; 83036; 83735; 84100; 84630; 85025; J1756

== ENCOUNTER 2019-12-04 08:23 | Outpatient (CLI) | payer BC, SELFPAY ==
[2019-12-05 20:29] LABS: COVID-19 RT-PCR Result NEGATIVE (Negative)
== END 2019-12-04 08:43 ==
PROVIDERS: PCP Family Medicine; Visit Provider Surgery
DX: Z01.818 Encounter for other preprocedural examination (principal)
CPT/HCPCS: U0003

== ENCOUNTER 2019-12-08 10:12 | Day surgery (SDC) | payer BC, SELFPAY ==
[2019-12-08 10:20] VITALS: BP 101/65; PULSE 57; RESP 18; TEMP 36.5; O2SAT 100
--- NOTE | 2019-12-08 11:16 | W.PM.DSUDISC ---
Discharge Plan Disposition Patient Disposition: HOME Condition: Good Discharge Details Reason For Visit: Mediport placement Attending Provider: Radhika Wheatley Primary Care Provider: Robbie Philippe Home Meds and New Rx's Prescriptions: Continued acetaminophen 500 mg capsule 500 mg PO Q6H PRNRF: 0 colestipol 1 gram tablet 1 gm PO ONCE RF: 0 ergocalciferol (vitamin D2) 1,250 mcg (50,000 unit) capsule 1,250 mcg PO QWEEK RF: 0 Gattex 30-Vial 5 mg kit 3.3 mg SC DAILY RF: 0 ibuprofen 600 mg tablet 600 mg PO Q8H PRNRF: 0 loperamide [Anti-Diarrheal (loperamide)] 2 mg capsule 2 mg PO Q6H PRNRF: 0 potassium chloride 20 mEq tablet extended release 20 meq PO DAILY RF: 0 albuterol sulfate [Ventolin HFA] 90 mcg/actuation HFA aerosol inhaler 2 puff IH Q4H PRNRF: 0 levothyroxine 125 MCG tablet 2 tab PO DAILY AM RF: 0 prochlorperazine maleate 5 MG tablet 1 tab PO DAILY RF: 0 pantoprazole [Protonix] 20 MG tablet,delayed release (DR/EC) 20 mg PO BID RF: 0 multivitamin Tablet 1 tab PO DAILY RF: 0 biotin 1 mg Tablet 1 tab PO DAILY RF: 0 loperamide 2 mg Capsule 8 mg PO Q4H Qty: 0 RF: 0 cyanocobalamin (vitamin B-12) [Vitamin B-12] 500 mcg Tablet 1,000 mcg PO DAILY Qty: 0 RF: 0 magnesium chloride [Mag 64] 64 mg Tablet,Delayed Release (Dr/Ec) 64 mg PO BID Qty: 0 RF: 0 diphenoxylate-atropine [Lomotil] 2.5-0.025 mg Tablet 1 tab PO DAILY PRNRF: 0 levothyroxine 50 mcg Tablet 50 mcg PO DAILY RF: 0 fluticasone propion-salmeterol [Advair Diskus] 250-50 mcg/dose Blister With Device 1 inh INHALATION BID RF: 0 Potassium/Magnesium Suppliment 1 tab PO DAILY RF: 0 cyanocobalamin (vitamin B-12) 1,000 mcg/mL Solution 1,000 mcg IM QMONTH RF: 0 Discharge Instructions Additional Instructions: The top bandage can be removed when you come in for your next lab draw/infusion. The steri strips will usually stick for about a week. When the edges start to curl up, they can be removed. It is okay to shower tomorrow, the water can run over bandage or steri strips Do not swim or soak in a tub for two weeks Call for any concerns including fever, increased pain, incision redness or drainage, shortness of breath. Do not lift more than 15 pounds for two weeks. Walking and stairs are fine. May use Tylenol alternating with ibuprofen for pain control. Ice is also an option. The maximum dose for Tylenol is 4000 mg/day. May use ibuprofen 800 mg every 8 hours as needed. The port may be used right away. Return to the office as needed. Activity:: Activity as Tolerated Remove Dressings/Wound Care:: 72 hours Shower/Bathe:: 24 hours Diet:: As Tolerated Discharge Orders Discharge Orders: Discharge Order (Routine); Ordered 12/08/19 Ordered By: Radhika Wheatley DS: Diagnosis Discharge Diagnosis (1) Short gut syndrome: Status: Chronic
[2019-12-08] MEDS: Lactated Ringers 1,000 ML 80 ML IV (11:32)
[2019-12-08] MEDS: CLINDAMYCIN 600 MG/50 ML BAG 100 MG IVPB (11:34)
--- NOTE | 2019-12-08 12:00 | DI.RAD_ITS ---
EXAM: RF LINE PLACEMENT OR CLINICAL HISTORY: SHORT GUT SYNDROME TECHNIQUE: COMPARISON: No exams were available for comparison FINDINGS: Fluoroscopy was utilized by Dr. Be during placement central venous catheter. Hard copy shows cathet er extending through left subclavian vein to terminate in the SVC. Fluoro time 28.7 seconds IMPRESSION: RADIATION DOSE DELIVERED: Total DLP
[2019-12-08] MEDS: Heparin 500 UNITS/5 ML SYRINGE (12:11)
[2019-12-08] MEDS: Normal Saline 20 ML VIAL (12:11)
[2019-12-08 13:11] VITALS: BP 98/61; PULSE 48; RESP 18; TEMP 36; O2SAT 98
--- NOTE | 2019-12-08 21:03 | W.PM.OP ---
Operative Note Operative Note DATE OF PROCEDURE: 12/08/19 PRE-OP DIAGNOSIS: Short bowel syndrome POST-OP DIAGNOSIS: same PROCEDURE: Left subclavian Mediport SURGEON: Radhika Wheatley ANESTHESIA: MAC and local Indications: This patient requires regular blood draws and infusions for short bowel syndrome. She presents for Mediport placement. Procedure Description: She was placed supine on the operating table and her arms tucked. Her bilateral chest and neck were prepped and draped sterilely. She was placed in Trendelenberg position. The skin of the upper left chest was infiltrated with 1% lidocaine. The 18 gauge needle is used to access the left subclavian vein on the first pass. The wire threaded easily and was shown to be in the SVC. An incision was made extending inferior/medially from the wire and a pocket created on the chest wall. The catheter was attached to the Slim PowerPort and then measured to the proper length and cut using fluoro. The peel away and dilator were passed over the wire and then the wire and dilator removed. The catheter was passed down the peel away which was then removed. The port was noted to be in good position using fluoro. The port was sutured to the chest wall with 3-0 Prolene. The subcutaneous tissue was closed with 3-0 Vicryl and the skin closed with a 4-0 Monocril suture. The port was accessed with the Reyes needed and aspirated. 3cc of heparinized saline were injected. The incision was dressed with steri strips and a gauze and Tegaderm. She tolerated the procedure well and was stable to recovery.
== END 2019-12-08 13:22 | disposition home or self-care (01) ==
PROVIDERS: PCP Family Medicine; Visit Provider Surgery
PROC: (CPT 36556; principal; 2019-12-08 10:45)
DX: K91.2 Postsurgical malabsorption, not elsewhere classified (principal); E03.9 Hypothyroidism, unspecified; E11.9 Type 2 diabetes mellitus without complications
CPT/HCPCS: 36556; 77001; C1788; J2001

== ENCOUNTER 2019-12-11 04:01 | Outpatient (RCR) | payer BC, SELFPAY ==
[2019-11-27] MEDS: Normal Saline Flush 10 ML SYR IVP (09:24)
[2019-11-27 12:20] LABS: Abs Immature Grans 0.05 10^3/uL (0.0-0.06); Absolute Monocyte Count 1.01 10^3/uL (0.1-0.8); Basophils % 1.1; Eosinophils % 1.4; HCT 37.7 % (36.0-46.0); HGB 11.8 g/dL (11.2-15.7); Immature Grans % 0.4; Lymphocytes % 14.6; MCH 30.9 pg (27.0-33.0); MCHC 31.3 % (32.0-36.0); MCV 98.7 fL (80-95); MPV 10.5 fL (8.0-11.0); Monocytes % 7.7; Neutrophils % 74.8; Nucleated RBC 0 %; Platelet Count 273 10^3/uL (130-400); RBC 3.82 10^6/uL (3.93-5.22); RDW 14.2 % (11.7-14.6); RDW-SD 51.3 fL; WBC 13.18 10^3/uL (4.4-10.8)
[2019-11-27 12:21] LABS: Absolute Basophil Count 0.14 10^3/uL (0.0-0.2); Absolute Eosinophil Count 0.18 10^3/uL (0.0-0.7); Absolute Lymphocyte Count 1.92 10^3/uL (1.2-3.4); Absolute Neutrophil Count 9.86 10^3/uL (1.2-6.7)
[2019-11-27 12:37] LABS: ALT 67 U/L (14-59); AST 47 U/L (15-37); Albumin 2.8 g/dL (3.4-5.0); Alkaline Phosphatase 139 U/L (46-116); Anion Gap 11.4 mmol/L (3-11); BUN 15 mg/dL (7-18); Bilirubin, Direct 0.09 mg/dL (0.00-0.20); Bilirubin, Total 0.3 mg/dL (0.2-1.0); CO2 17.6 mmol/L (21.0-32.0); CREATININE 0.67 mg/dL (0.55-1.02); Calcium 8.6 mg/dL (8.5-10.1); Chloride 107 mmol/L (98-107); Glucose 78 mg/dL (74-106); Magnesium 1.4 mg/dL (1.8-2.4); PHOSPHORUS 3.6 mg/dL (2.6-4.7); Potassium 3.7 mmol/L (3.5-5.1); Sodium 136 mmol/L (136-145)
[2019-12-02 10:38] LABS: Copper, Serum 0.65 mcg/mL (0.75-1.45); Zinc, Serum 0.75 mcg/mL (0.66-1.10)
[2019-12-11] MEDS: Normal Saline Flush 10 ML SYR IVP (09:31)
[2019-12-11] MEDS: Heparin 500 UNITS/5 ML SYRINGE (09:32)
[2019-12-11 09:59] LABS: Anion Gap 10.4 mmol/L (3-11); BUN 11 mg/dL (7-18); CO2 21.6 mmol/L (21.0-32.0); Calcium 8.1 mg/dL (8.5-10.1); Chloride 105 mmol/L (98-107); Glucose 87 mg/dL (74-106); PHOSPHORUS 2.5 mg/dL (2.6-4.7); Potassium 3.6 mmol/L (3.5-5.1); Sodium 137 mmol/L (136-145)
[2019-12-11 13:33] LABS: Magnesium 1.1 mg/dL (1.8-2.4)
== END 2019-12-23 23:59 | disposition home or self-care (01) ==
LOC: INF 04:01
PROVIDERS: Internal Medicine Gastroenterology; PCP Family Medicine; Visit Provider Family Medicine
DX: E61.0 Copper deficiency (principal); K91.2 Postsurgical malabsorption, not elsewhere classified; E83.42 Hypomagnesemia; E87.6 Hypokalemia; D64.9 Anemia, unspecified; E43 Unspecified severe protein-calorie malnutrition
CPT/HCPCS: 36415; 36591; 80048; 80076; 96365; 96366; 82525; 83735; 84100; 84630; 85025

== ENCOUNTER 2020-01-08 05:08 | Outpatient (RCR) | payer BC, SELFPAY ==
[2019-12-25 09:21] LABS: Abs Immature Grans 0.04 10^3/uL (0.0-0.06); Absolute Basophil Count 0.15 10^3/uL (0.0-0.2); Absolute Monocyte Count 0.85 10^3/uL (0.1-0.8); Absolute Neutrophil Count 6.76 10^3/uL (1.2-6.7); Basophils % 1.5; Eosinophils % 2.9; HCT 33.8 % (36.0-46.0); HGB 11.1 g/dL (11.2-15.7); Immature Grans % 0.4; Lymphocytes % 20.6; MCH 31.2 pg (27.0-33.0); MCHC 32.8 % (32.0-36.0); MCV 94.9 fL (80-95); MPV 10.3 fL (8.0-11.0); Monocytes % 8.3; Neutrophils % 66.3; Nucleated RBC 0 %; Platelet Count 339 10^3/uL (130-400); RBC 3.56 10^6/uL (3.93-5.22); RDW 14.6 % (11.7-14.6); RDW-SD 50.9 fL
[2019-12-25] MEDS: Normal Saline Flush 10 ML SYR IVP (09:24)
[2019-12-25] MEDS: Heparin 500 UNITS/5 ML SYRINGE IV (09:25)
[2019-12-25 09:31] LABS: ALT 47 U/L (14-59); AST 28 U/L (15-37); Albumin 2.6 g/dL (3.4-5.0); Alkaline Phosphatase 121 U/L (46-116); Anion Gap 9.7 mmol/L (3-11); BUN 12 mg/dL (7-18); Bilirubin, Direct 0.12 mg/dL (0.00-0.20); Bilirubin, Total 0.3 mg/dL (0.2-1.0); CO2 21.3 mmol/L (21.0-32.0); CREATININE 0.59 mg/dL (0.55-1.02); Calcium 8.2 mg/dL (8.5-10.1); Chloride 106 mmol/L (98-107); Glucose 85 mg/dL (74-106); Magnesium 1.1 mg/dL (1.8-2.4); PHOSPHORUS 2.7 mg/dL (2.6-4.7); Potassium 3.5 mmol/L (3.5-5.1); Sodium 137 mmol/L (136-145); TSH 3.96 uIU/mL (0.36-3.74); Total Protein 6.5 g/dL (6.4-8.2)
[2019-12-25 16:55] LABS: T3, Total 68 ng/dL (97-169)
[2019-12-28 15:52] LABS: Copper, Serum 0.59 mcg/mL (0.75-1.45)
[2019-12-28 16:25] LABS: Zinc, Serum 0.59 mcg/mL (0.66-1.10)
[2020-01-08] MEDS: Heparin 500 UNITS/5 ML SYRINGE IV (08:53)
[2020-01-08] MEDS: Normal Saline Flush 10 ML SYR IVP (08:53)
[2020-01-08] MEDS: IRON SUCROSE COMPLEX 200 MG in Normal Saline 100 ML 440 MG IVPB (08:53)
[2020-01-08 09:03] LABS: BUN 13 mg/dL (7-18); CREATININE 0.57 mg/dL (0.55-1.02); Calcium 8.2 mg/dL (8.5-10.1); Chloride 104 mmol/L (98-107); Glucose 90 mg/dL (74-106); Magnesium 1.5 mg/dL (1.8-2.4); PHOSPHORUS 2.7 mg/dL (2.6-4.7); Potassium 4.3 mmol/L (3.5-5.1); Sodium 136 mmol/L (136-145)
== END 2020-01-23 23:59 | disposition home or self-care (01) ==
LOC: INF 05:08
PROVIDERS: PCP Family Medicine; Visit Provider Family Medicine
DX: K91.2 Postsurgical malabsorption, not elsewhere classified (principal); E83.42 Hypomagnesemia; E87.6 Hypokalemia; D64.9 Anemia, unspecified; E43 Unspecified severe protein-calorie malnutrition; E61.0 Copper deficiency
CPT/HCPCS: 36591; 80048; 80076; 96365; 96366; 82525; 83735; 84100; 84439; 84443; 84480; 84630; 85025; J1756

== ENCOUNTER 2020-02-11 09:00 | Outpatient (RCR) | payer BC, SELFPAY ==
[2020-01-29] MEDS: Normal Saline Flush 10 ML SYR IVP (08:49)
[2020-01-29] MEDS: Heparin 500 UNITS/5 ML SYRINGE (08:49)
[2020-01-29 08:50] LABS: Abs Immature Grans 0.06 10^3/uL (0.0-0.06); Absolute Basophil Count 0.07 10^3/uL (0.0-0.2); Absolute Eosinophil Count 0.19 10^3/uL (0.0-0.7); Absolute Lymphocyte Count 1.54 10^3/uL (1.2-3.4); Absolute Monocyte Count 0.83 10^3/uL (0.1-0.8); Absolute Neutrophil Count 6.78 10^3/uL (1.2-6.7); Basophils % 0.7; HCT 30.3 % (36.0-46.0); HGB 9.5 g/dL (11.2-15.7); Immature Grans % 0.6; Lymphocytes % 16.3; MCH 30.7 pg (27.0-33.0); MCHC 31.4 % (32.0-36.0); MCV 98.1 fL (80-95); MPV 10.6 fL (8.0-11.0); Monocytes % 8.8; Neutrophils % 71.6; Nucleated RBC 0 %; Platelet Count 271 10^3/uL (130-400); RBC 3.09 10^6/uL (3.93-5.22); RDW 15.3 % (11.7-14.6); RDW-SD 54.4 fL; WBC 9.47 10^3/uL (4.4-10.8)
[2020-01-29 09:12] LABS: ALT 42 U/L (14-59); AST 29 U/L (15-37); Albumin 2.7 g/dL (3.4-5.0); Alkaline Phosphatase 148 U/L (46-116); Anion Gap 11.9 mmol/L (3-11); BUN 9 mg/dL (7-18); Bilirubin, Total 0.5 mg/dL (0.2-1.0); CO2 20.1 mmol/L (21.0-32.0); CREATININE 0.66 mg/dL (0.55-1.02); Calcium 8.1 mg/dL (8.5-10.1); Chloride 106 mmol/L (98-107); Glucose 85 mg/dL (74-106); Magnesium 1.3 mg/dL (1.8-2.4); PHOSPHORUS < 2.0 mg/dL (2.6-4.7); Potassium 3.8 mmol/L (3.5-5.1); Sodium 138 mmol/L (136-145); Total Protein 6.5 g/dL (6.4-8.2)
[2020-02-01 15:28] LABS: Copper, Serum 0.44 mcg/mL (0.75-1.45)
[2020-02-01 15:29] LABS: Zinc, Serum 0.58 mcg/mL (0.66-1.10)
[2020-02-11 09:10] LABS: Anion Gap 10.5 mmol/L (3-11); BUN 6 mg/dL (7-18); CO2 16.5 mmol/L (21.0-32.0); CREATININE 0.64 mg/dL (0.55-1.02); Calcium 8.4 mg/dL (8.5-10.1); Chloride 106 mmol/L (98-107); Glucose 86 mg/dL (74-106); Magnesium 1.5 mg/dL (1.8-2.4); PHOSPHORUS 2.8 mg/dL (2.6-4.7); Potassium 3.9 mmol/L (3.5-5.1); Sodium 133 mmol/L (136-145)
[2020-02-11] MEDS: Normal Saline Flush 10 ML SYR IVP (09:10)
== END 2020-02-22 23:59 | disposition home or self-care (01) ==
LOC: INF 09:00
PROVIDERS: Internal Medicine Gastroenterology; PCP Family Medicine; Visit Provider Family Medicine
DX: E61.0 Copper deficiency (principal); K91.2 Postsurgical malabsorption, not elsewhere classified; E83.42 Hypomagnesemia; E87.6 Hypokalemia; D64.9 Anemia, unspecified; E43 Unspecified severe protein-calorie malnutrition
CPT/HCPCS: 36591; 80048; 80076; 96365; 96366; 82525; 83735; 84100; 84630; 85025

== ENCOUNTER 2020-03-17 08:51 | Outpatient (CLI) | payer BC, SELFPAY ==
[2020-03-18 18:48] LABS: COVID-19 RT-PCR UVMMC Result Negative (Negative)
== END 2020-03-17 09:11 ==
PROVIDERS: PCP Family Medicine; Visit Provider Registered Nurse
DX: J06.9 Acute upper respiratory infection, unspecified (principal)
CPT/HCPCS: U0003

== ENCOUNTER 2020-03-24 02:22 | Outpatient (RCR) | payer BC, SELFPAY ==
[2020-02-26] MEDS: Heparin 500 UNITS/5 ML SYRINGE (09:06)
[2020-02-26] MEDS: Normal Saline Flush 10 ML SYR IVP (09:06)
[2020-02-26 10:19] LABS: Abs Immature Grans 0.07 10^3/uL (0.0-0.06); Absolute Basophil Count 0.05 10^3/uL (0.0-0.2); Absolute Eosinophil Count 0.12 10^3/uL (0.0-0.7); Absolute Lymphocyte Count 1.67 10^3/uL (1.2-3.4); Absolute Monocyte Count 0.75 10^3/uL (0.1-0.8); Absolute Neutrophil Count 7.81 10^3/uL (1.2-6.7); Basophils % 0.5; Eosinophils % 1.1; HCT 28.2 % (36.0-46.0); HGB 8.9 g/dL (11.2-15.7); Immature Grans % 0.7; MCH 30.9 pg (27.0-33.0); MCHC 31.6 % (32.0-36.0); MCV 97.9 fL (80-95); MPV 11.2 fL (8.0-11.0); Monocytes % 7.2; Neutrophils % 74.5; Nucleated RBC 0 %; Platelet Count 304 10^3/uL (130-400); RBC 2.88 10^6/uL (3.93-5.22); RDW 15.7 % (11.7-14.6); RDW-SD 56.4 fL; WBC 10.47 10^3/uL (4.4-10.8)
[2020-02-26 10:35] LABS: Anisocytosis 1+; Diff Comment RBC Morph Reviewed; Polychromasia Present
[2020-02-26 10:36] LABS: Poikilocytes 2+
[2020-02-26 10:41] LABS: ALT 25 U/L (14-59); AST 20 U/L (15-37); Albumin 2.4 g/dL (3.4-5.0); Alkaline Phosphatase 136 U/L (46-116); Anion Gap 11.8 mmol/L (3-11); BUN 9 mg/dL (7-18); Bilirubin, Direct 0.15 mg/dL (0.00-0.20); Bilirubin, Total 0.4 mg/dL (0.2-1.0); CO2 17.2 mmol/L (21.0-32.0); CREATININE 0.71 mg/dL (0.55-1.02); Calcium 7.7 mg/dL (8.5-10.1); Chloride 106 mmol/L (98-107); Glucose 73 mg/dL (74-106); Magnesium 1.2 mg/dL (1.8-2.4); Potassium 3.4 mmol/L (3.5-5.1); Sodium 135 mmol/L (136-145); Total Protein 6.2 g/dL (6.4-8.2)
[2020-02-29 12:33] LABS: Copper, Serum 0.55 mcg/mL (0.75-1.45); Zinc, Serum 0.52 mcg/mL (0.66-1.10)
[2020-03-04 08:56] VITALS: BP 98/66; PULSE 75; RESP 19; TEMP 36.5; O2SAT 100
[2020-03-04 09:13] VITALS: BP 98/66; PULSE 75; RESP 19; TEMP 36.5; O2SAT 100
[2020-03-04 09:41] LABS: Anion Gap 10.7 mmol/L (3-11); BUN 14 mg/dL (7-18); CO2 16.3 mmol/L (21.0-32.0); CREATININE 0.77 mg/dL (0.55-1.02); Chloride 107 mmol/L (98-107); Glucose 83 mg/dL (74-106); Magnesium 1.5 mg/dL (1.8-2.4); PHOSPHORUS 2.3 mg/dL (2.6-4.7); Potassium 3.6 mmol/L (3.5-5.1); Sodium 134 mmol/L (136-145)
[2020-03-04] MEDS: Normal Saline Flush 10 ML SYR IVP (09:46)
[2020-03-04] MEDS: Heparin 500 UNITS/5 ML SYRINGE IV (09:46)
[2020-03-04 09:58] LABS: Iron 56 ug/dL (50-170); Total Iron Binding Capacity 146 ug/dL (250-450); Transferrin Sat 38 % (15-50)
[2020-03-04 10:20] LABS: Ferritin 236 ng/mL (8-252); Folate 17.2 ng/mL (8.6-20.0); Vitamin B12 739 pg/mL (193-986)
[2020-03-05 16:29] LABS: Selenium, Serum 111 ng/mL (70-150)
[2020-03-06 20:25] LABS: Free Retinol (Vitamin A) <5.0 mcg/dL (32.5-78.0)
[2020-03-07 05:25] LABS: Vitamin D 25 Total 10.1 ng/ml (30-100)
[2020-03-07 10:08] LABS: Prealbumin 16 mg/dL (20-40)
[2020-03-08 11:57] LABS: Manganese, Serum <1.0 ng/mL (<2.4)
[2020-03-11 09:19] LABS: Anion Gap 10.4 mmol/L (3-11); BUN 13 mg/dL (7-18); CO2 17.6 mmol/L (21.0-32.0); CREATININE 0.77 mg/dL (0.55-1.02); Calcium 7.8 mg/dL (8.5-10.1); Chloride 107 mmol/L (98-107); Glucose 74 mg/dL (74-106); Magnesium 1.7 mg/dL (1.8-2.4); PHOSPHORUS < 2.0 mg/dL (2.6-4.7); Potassium 3.5 mmol/L (3.5-5.1); Sodium 135 mmol/L (136-145)
[2020-03-11] MEDS: Heparin 500 UNITS/5 ML SYRINGE IV (09:27)
[2020-03-11] MEDS: IRON SUCROSE COMPLEX 200 MG in Normal Saline 100 ML 440 MG IVPB (09:27)
[2020-03-11] MEDS: Normal Saline Flush 10 ML SYR IVP (09:27)
[2020-03-11 11:24] VITALS: BP 125/78; PULSE 78; RESP 18; TEMP 36.5; O2SAT 100
[2020-03-24] MEDS: Normal Saline Flush 10 ML SYR IVP (08:45)
[2020-03-24 09:01] LABS: Abs Immature Grans 0.07 10^3/uL (0.0-0.06); Absolute Lymphocyte Count 2.61 10^3/uL (1.2-3.4); Absolute Monocyte Count 0.74 10^3/uL (0.1-0.8); Basophils % 0.9; Eosinophils % 2.6; HCT 28.5 % (36.0-46.0); HGB 8.8 g/dL (11.2-15.7); Immature Grans % 0.6; MCH 30.2 pg (27.0-33.0); MCHC 30.9 % (32.0-36.0); MCV 97.9 fL (80-95); MPV 10.2 fL (8.0-11.0); Monocytes % 6.5; Neutrophils % 66.4; Nucleated RBC 0 %; Platelet Count 331 10^3/uL (130-400); RBC 2.91 10^6/uL (3.93-5.22); RDW-SD 53.7 fL; WBC 11.35 10^3/uL (4.4-10.8)
[2020-03-24 09:02] LABS: Absolute Neutrophil Count 7.54 10^3/uL (1.2-6.7)
[2020-03-24 09:14] LABS: ALT 38 U/L (14-59); AST 40 U/L (15-37); Albumin 2.5 g/dL (3.4-5.0); Alkaline Phosphatase 128 U/L (46-116); Anion Gap 9.8 mmol/L (3-11); BUN 5 mg/dL (7-18); Bilirubin, Direct 0.09 mg/dL (0.00-0.20); Bilirubin, Total 0.3 mg/dL (0.2-1.0); CO2 20.2 mmol/L (21.0-32.0); CREATININE 0.64 mg/dL (0.55-1.02); Calcium 8.4 mg/dL (8.5-10.1); Chloride 105 mmol/L (98-107); Glucose 85 mg/dL (74-106); Magnesium 1.4 mg/dL (1.8-2.4); Sodium 135 mmol/L (136-145); Total Protein 6.7 g/dL (6.4-8.2)
[2020-03-24] MEDS: Heparin 500 UNITS/5 ML SYRINGE IV (09:21)
[2020-03-26 10:04] LABS: Copper, Serum 0.51 mcg/mL (0.75-1.45); Zinc, Serum 0.72 mcg/mL (0.66-1.10)
== END 2020-03-24 23:59 | disposition home or self-care (01) ==
LOC: INF 02:22
PROVIDERS: Internal Medicine Gastroenterology; PCP Family Medicine; Visit Provider Family Medicine
DX: K91.2 Postsurgical malabsorption, not elsewhere classified (principal); E83.42 Hypomagnesemia; E87.6 Hypokalemia; D64.9 Anemia, unspecified; E43 Unspecified severe protein-calorie malnutrition; E61.0 Copper deficiency
CPT/HCPCS: 36591; 80048; 80076; 82306; 96365; 96366; 82525; 82607; 82728; 82746; 83540; 83550; 83735; 83785; 84100; 84134; 84255; 84590; 84630; 85025; J1756

== ENCOUNTER 2020-04-22 04:38 | Outpatient (RCR) | payer BC, SELFPAY ==
[2020-03-25 00:03] VITALS: BP 125/78; PULSE 78; RESP 18; TEMP 36.5
[2020-04-08] MEDS: Normal Saline Flush 10 ML SYR IVP (09:08)
[2020-04-08 09:27] LABS: BUN 9 mg/dL (7-18); CREATININE 0.69 mg/dL (0.55-1.02); Calcium 8.3 mg/dL (8.5-10.1); Chloride 107 mmol/L (98-107); FREE T4 1.04 ng/dL (0.76-1.46); Glucose 90 mg/dL (74-106); Magnesium 1.7 mg/dL (1.8-2.4); PHOSPHORUS 2.9 mg/dL (2.6-4.7); Potassium 3.5 mmol/L (3.5-5.1); Sodium 135 mmol/L (136-145); TSH 2.87 uIU/mL (0.36-3.74)
[2020-04-08] MEDS: Heparin 500 UNITS/5 ML SYRINGE IV (11:20)
[2020-04-08 18:30] LABS: T3, Total 71 ng/dL (97-169)
[2020-04-22] MEDS: Heparin 500 UNITS/5 ML SYRINGE IV (08:35)
[2020-04-22] MEDS: Normal Saline Flush 10 ML SYR IVP (08:35)
[2020-04-22 08:45] LABS: Abs Immature Grans 0.04 10^3/uL (0.0-0.06); Absolute Eosinophil Count 0.21 10^3/uL (0.0-0.7); Absolute Lymphocyte Count 1.94 10^3/uL (1.2-3.4); Absolute Monocyte Count 0.79 10^3/uL (0.1-0.8); Absolute Neutrophil Count 8.84 10^3/uL (1.2-6.7); Basophils % 0.8; Eosinophils % 1.8; HCT 27.9 % (36.0-46.0); HGB 8.8 g/dL (11.2-15.7); Immature Grans % 0.3; Lymphocytes % 16.3; MCH 30.3 pg (27.0-33.0); MCHC 31.5 % (32.0-36.0); MCV 96.2 fL (80-95); MPV 10.8 fL (8.0-11.0); Monocytes % 6.6; Neutrophils % 74.2; Nucleated RBC 0 %; Platelet Count 298 10^3/uL (130-400); RDW 15.8 % (11.7-14.6); WBC 11.92 10^3/uL (4.4-10.8)
[2020-04-22 09:08] LABS: ALT 31 U/L (14-59); AST 23 U/L (15-37); Albumin 2.2 g/dL (3.4-5.0); Alkaline Phosphatase 106 U/L (46-116); Anion Gap 9.3 mmol/L (3-11); BUN 11 mg/dL (7-18); Bilirubin, Direct 0.09 mg/dL (0.00-0.20); Bilirubin, Total 0.3 mg/dL (0.2-1.0); CO2 20.7 mmol/L (21.0-32.0); CREATININE 0.6 mg/dL (0.55-1.02); Calcium 7.8 mg/dL (8.5-10.1); Chloride 105 mmol/L (98-107); Glucose 87 mg/dL (74-106); Magnesium 1.5 mg/dL (1.8-2.4); PHOSPHORUS 3.2 mg/dL (2.6-4.7); Potassium 3.3 mmol/L (3.5-5.1); Sodium 135 mmol/L (136-145); Total Protein 5.9 g/dL (6.4-8.2)
[2020-04-23 12:23] LABS: Zinc, Serum 0.65 mcg/mL (0.66-1.10)
== END 2020-04-24 23:59 | disposition home or self-care (01) ==
LOC: INF 04:38
PROVIDERS: PCP Family Medicine; Visit Provider Family Medicine
DX: E61.0 Copper deficiency (principal)
CPT/HCPCS: 36591; 80048; 80076; 96365; 96366; 82525; 83735; 84100; 84439; 84443; 84480; 84630; 85025

== ENCOUNTER 2020-05-20 04:32 | Outpatient (RCR) | payer BC, SELFPAY ==
[2020-04-25 00:03] VITALS: BP 125/78; PULSE 78; RESP 18; TEMP 36.5
[2020-05-06] MEDS: Normal Saline Flush 10 ML SYR IVP ×2 (08:46→08:55)
[2020-05-06] MEDS: Heparin 500 UNITS/5 ML SYRINGE (08:46)
[2020-05-06 09:07] LABS: Anion Gap 10.6 mmol/L (3-11); BUN 10 mg/dL (7-18); CO2 21.4 mmol/L (21.0-32.0); CREATININE 0.8 mg/dL (0.55-1.02); Calcium 8.3 mg/dL (8.5-10.1); Chloride 106 mmol/L (98-107); Glucose 119 mg/dL (74-106); Magnesium 1.7 mg/dL (1.8-2.4); PHOSPHORUS 3.3 mg/dL (2.6-4.7); Potassium 3.9 mmol/L (3.5-5.1); Sodium 138 mmol/L (136-145)
[2020-05-20] MEDS: IRON SUCROSE COMPLEX 200 MG in Normal Saline 100 ML 440 MG IVPB (08:42)
[2020-05-20 08:43] LABS: Abs Immature Grans 0.08 10^3/uL (0.0-0.06); Absolute Basophil Count 0.15 10^3/uL (0.0-0.2); Absolute Monocyte Count 0.95 10^3/uL (0.1-0.8); Basophils % 1.1; Eosinophils % 1.4; HCT 31.7 % (36.0-46.0); HGB 10.2 g/dL (11.2-15.7); Immature Grans % 0.6; Lymphocytes % 13.5; MCH 31.2 pg (27.0-33.0); MCHC 32.2 % (32.0-36.0); MCV 96.9 fL (80-95); MPV 10.4 fL (8.0-11.0); Monocytes % 6.8; Neutrophils % 76.6; Nucleated RBC 0 %; Platelet Count 307 10^3/uL (130-400); RBC 3.27 10^6/uL (3.93-5.22); RDW 15.3 % (11.7-14.6); RDW-SD 54.2 fL; WBC 14.04 10^3/uL (4.4-10.8)
[2020-05-20 08:44] LABS: Absolute Neutrophil Count 10.75 10^3/uL (1.2-6.7)
[2020-05-20 08:56] LABS: ALT 29 U/L (14-59); AST 20 U/L (15-37); Albumin 2.5 g/dL (3.4-5.0); Alkaline Phosphatase 103 U/L (46-116); Anion Gap 11.8 mmol/L (3-11); BUN 13 mg/dL (7-18); Bilirubin, Direct 0.07 mg/dL (0.00-0.20); Bilirubin, Total 0.3 mg/dL (0.2-1.0); CO2 22.2 mmol/L (21.0-32.0); CREATININE 0.8 mg/dL (0.55-1.02); Calcium 8.3 mg/dL (8.5-10.1); Chloride 107 mmol/L (98-107); Glucose 96 mg/dL (74-106); Magnesium 1.4 mg/dL (1.8-2.4); Potassium 3.7 mmol/L (3.5-5.1); Sodium 141 mmol/L (136-145); Total Protein 6.7 g/dL (6.4-8.2)
[2020-05-20 09:03] LABS: Hemoglobin A1C 3.9 % (<5.7)
[2020-05-20] MEDS: Normal Saline Flush 10 ML SYR IVP (09:06)
[2020-05-20] MEDS: Heparin 500 UNITS/5 ML SYRINGE IV (09:07)
[2020-05-23 18:05] LABS: Zinc, Serum 0.53 mcg/mL (0.66-1.10)
== END 2020-05-22 23:59 | disposition home or self-care (01) ==
LOC: INF 04:32
PROVIDERS: Internal Medicine Gastroenterology; PCP Family Medicine; Visit Provider Family Medicine
DX: E11.9 Type 2 diabetes mellitus without complications (principal); E03.9 Hypothyroidism, unspecified; K91.2 Postsurgical malabsorption, not elsewhere classified; D64.9 Anemia, unspecified; E83.42 Hypomagnesemia; E87.6 Hypokalemia; E61.0 Copper deficiency; E43 Unspecified severe protein-calorie malnutrition
CPT/HCPCS: 36591; 80048; 80076; 96365; 96366; 82525; 83036; 83735; 84100; 84630; 85025; J1756

== ENCOUNTER 2020-06-21 02:58 | Outpatient (RCR) | payer BC, SELFPAY ==
[2020-05-23 00:13] VITALS: BP 125/78; PULSE 78; RESP 18; TEMP 36.5
[2020-06-03] MEDS: Normal Saline Flush 10 ML SYR IVP (08:52)
[2020-06-03] MEDS: Heparin 500 UNITS/5 ML SYRINGE (08:53)
[2020-06-03 08:56] LABS: Anion Gap 10.9 mmol/L (3-11); BUN 10 mg/dL (7-18); CO2 20.1 mmol/L (21.0-32.0); CREATININE 0.7 mg/dL (0.55-1.02); Calcium 8.4 mg/dL (8.5-10.1); Chloride 107 mmol/L (98-107); Glucose 95 mg/dL (74-106); Magnesium 1.5 mg/dL (1.8-2.4); PHOSPHORUS 2.6 mg/dL (2.6-4.7); Potassium 3.9 mmol/L (3.5-5.1); Sodium 138 mmol/L (136-145)
[2020-06-21] MEDS: Normal Saline Flush 10 ML SYR IVP (08:55)
[2020-06-21 09:07] LABS: Abs Immature Grans 0.04 10^3/uL (0.0-0.06); Absolute Basophil Count 0.11 10^3/uL (0.0-0.2); Absolute Eosinophil Count 0.32 10^3/uL (0.0-0.7); Absolute Lymphocyte Count 1.83 10^3/uL (1.2-3.4); Absolute Monocyte Count 0.74 10^3/uL (0.1-0.8); Absolute Neutrophil Count 8.39 10^3/uL (1.2-6.7); Eosinophils % 2.8; HCT 32.3 % (36.0-46.0); HGB 10.3 g/dL (11.2-15.7); Immature Grans % 0.3; MCH 31.1 pg (27.0-33.0); MCHC 31.9 % (32.0-36.0); MCV 97.6 fL (80-95); MPV 10.2 fL (8.0-11.0); Monocytes % 6.5; Neutrophils % 73.4; Nucleated RBC 0 %; Platelet Count 330 10^3/uL (130-400); RBC 3.31 10^6/uL (3.93-5.22); RDW 14.6 % (11.7-14.6); RDW-SD 52.1 fL; WBC 11.43 10^3/uL (4.4-10.8)
[2020-06-21 09:23] LABS: ALT 44 U/L (14-59); AST 33 U/L (15-37); Albumin 2.6 g/dL (3.4-5.0); Alkaline Phosphatase 119 U/L (46-116); Anion Gap 10.4 mmol/L (3-11); BUN 14 mg/dL (7-18); Bilirubin, Direct 0.2 mg/dL (0.0-0.2); Bilirubin, Total 0.3 mg/dL (0.2-1.0); CO2 22.6 mmol/L (21.0-32.0); CREATININE 0.6 mg/dL (0.55-1.02); Calcium 8.7 mg/dL (8.5-10.1); Chloride 107 mmol/L (98-107); Glucose 104 mg/dL (74-106); Magnesium 1.3 mg/dL (1.8-2.4); PHOSPHORUS 2.5 mg/dL (2.6-4.7); Potassium 3.6 mmol/L (3.5-5.1); Sodium 140 mmol/L (136-145); Total Protein 7.1 g/dL (6.4-8.2)
[2020-06-21] MEDS: Heparin 500 UNITS/5 ML SYRINGE (11:14)
[2020-06-22 15:58] LABS: Copper, Serum 0.54 mcg/mL (0.75-1.45)
[2020-06-22 16:25] LABS: Zinc, Serum 0.56 mcg/mL (0.66-1.10)
== END 2020-06-22 23:59 | disposition home or self-care (01) ==
LOC: INF 02:58
PROVIDERS: PCP Family Medicine; Visit Provider Family Medicine
DX: K91.2 Postsurgical malabsorption, not elsewhere classified (principal); E83.42 Hypomagnesemia; E87.6 Hypokalemia; D50.9 Iron deficiency anemia, unspecified; E43 Unspecified severe protein-calorie malnutrition; E61.0 Copper deficiency
CPT/HCPCS: 36591; 80048; 80076; 96365; 96366; 82525; 83735; 84100; 84630; 85025

== ENCOUNTER 2020-07-15 04:24 | Outpatient (RCR) | payer BC, SELFPAY ==
[2020-06-23 00:15] VITALS: BP 125/78; PULSE 78; RESP 18; TEMP 36.5
[2020-07-01] MEDS: Normal Saline Flush 10 ML SYR IVP (09:23)
[2020-07-01 10:07] LABS: Anion Gap 9.2 mmol/L (3-11); BUN 8 mg/dL (7-18); CO2 21.8 mmol/L (21.0-32.0); CREATININE 0.7 mg/dL (0.55-1.02); Calcium 8.6 mg/dL (8.5-10.1); Chloride 108 mmol/L (98-107); FREE T4 0.96 ng/dL (0.76-1.46); Glucose 87 mg/dL (74-106); Magnesium 1.4 mg/dL (1.8-2.4); PHOSPHORUS 3.2 mg/dL (2.6-4.7); Potassium 3.5 mmol/L (3.5-5.1); Sodium 139 mmol/L (136-145); TSH 3.24 uIU/mL (0.36-3.74)
[2020-07-01] MEDS: Heparin 500 UNITS/5 ML SYRINGE (11:30)
[2020-07-01 17:31] LABS: T3, Total 87 ng/dL (97-169)
[2020-07-15] MEDS: IRON SUCROSE COMPLEX 200 MG in Normal Saline 100 ML 440 MG IVPB (08:34)
[2020-07-15] MEDS: Normal Saline Flush 10 ML SYR IVP (08:38)
[2020-07-15 08:45] LABS: Anion Gap 8.5 mmol/L (3-11); BUN 9 mg/dL (7-18); CO2 21.5 mmol/L (21.0-32.0); CREATININE 0.6 mg/dL (0.55-1.02); Calcium 8.6 mg/dL (8.5-10.1); Chloride 107 mmol/L (98-107); Glucose 98 mg/dL (74-106); Magnesium 1.3 mg/dL (1.8-2.4); Potassium 3.7 mmol/L (3.5-5.1); Sodium 137 mmol/L (136-145)
[2020-07-15] MEDS: Heparin 500 UNITS/5 ML SYRINGE IV (08:56)
== END 2020-07-22 23:59 | disposition home or self-care (01) ==
LOC: INF 04:24
PROVIDERS: Internal Medicine Gastroenterology; PCP Family Medicine; Visit Provider Family Medicine
DX: K91.2 Postsurgical malabsorption, not elsewhere classified (principal); E83.42 Hypomagnesemia; E87.6 Hypokalemia; D64.9 Anemia, unspecified; E43 Unspecified severe protein-calorie malnutrition; E61.0 Copper deficiency
CPT/HCPCS: 36591; 80048; 96365; 96366; 83735; 84100; 84439; 84443; 84480; J1756

== ENCOUNTER 2020-08-16 02:46 | Outpatient (RCR) | payer BC, SELFPAY ==
[2020-07-23 00:09] VITALS: BP 125/78; PULSE 78; RESP 18; TEMP 36.5
[2020-07-29] MEDS: Normal Saline Flush 10 ML SYR IVP (08:44)
[2020-07-29 08:55] LABS: Anion Gap 12.7 mmol/L (3-11); BUN 8 mg/dL (7-18); CO2 18.3 mmol/L (21.0-32.0); CREATININE 0.6 mg/dL (0.55-1.02); Calcium 8.4 mg/dL (8.5-10.1); Chloride 108 mmol/L (98-107); Glucose 104 mg/dL (74-106); Magnesium 1.3 mg/dL (1.8-2.4); PHOSPHORUS 3.5 mg/dL (2.6-4.7); Potassium 3.6 mmol/L (3.5-5.1); Sodium 139 mmol/L (136-145)
[2020-07-29] MEDS: Heparin 500 UNITS/5 ML SYRINGE IV (11:01)
== END 2020-08-22 23:59 | disposition home or self-care (01) ==
LOC: INF 02:46
PROVIDERS: Internal Medicine Gastroenterology; PCP Family Medicine; Visit Provider Family Medicine
DX: K91.2 Postsurgical malabsorption, not elsewhere classified (principal); E83.42 Hypomagnesemia; E87.6 Hypokalemia; D64.9 Anemia, unspecified; E43 Unspecified severe protein-calorie malnutrition; E61.0 Copper deficiency
CPT/HCPCS: 36415; 80048; 96365; 96366; 83735; 84100

== ENCOUNTER 2020-09-09 02:17 | Outpatient (RCR) | payer BC, SELFPAY ==
[2020-08-23 00:05] VITALS: BP 125/78; PULSE 78; RESP 18; TEMP 36.5
[2020-08-26] MEDS: Normal Saline Flush 10 ML SYR IVP (09:14)
[2020-08-26 09:20] LABS: Abs Immature Grans 0.06 10^3/uL (0.0-0.06); Absolute Basophil Count 0.16 10^3/uL (0.0-0.2); Absolute Eosinophil Count 0.51 10^3/uL (0.0-0.7); Absolute Lymphocyte Count 2.21 10^3/uL (1.2-3.4); Basophils % 1.2; Eosinophils % 3.8; HCT 34.1 % (36.0-46.0); HGB 10.7 g/dL (11.2-15.7); Immature Grans % 0.4; Lymphocytes % 16.5; MCH 30.4 pg (27.0-33.0); MCHC 31.4 % (32.0-36.0); MCV 96.9 fL (80-95); MPV 10.8 fL (8.0-11.0); Monocytes % 6.7; Neutrophils % 71.4; Nucleated RBC 0 %; Platelet Count 298 10^3/uL (130-400); RBC 3.52 10^6/uL (3.93-5.22); RDW 15.8 % (11.7-14.6); RDW-SD 56.1 fL; WBC 13.37 10^3/uL (4.4-10.8)
[2020-08-26 09:21] LABS: Absolute Neutrophil Count 9.55 10^3/uL (1.2-6.7)
[2020-08-26 09:36] LABS: ALT 49 U/L (14-59); AST 39 U/L (15-37); Albumin 2.9 g/dL (3.4-5.0); Alkaline Phosphatase 127 U/L (46-116); Anion Gap 9.7 mmol/L (3-11); BUN 15 mg/dL (7-18); Bilirubin, Direct 0.1 mg/dL (0.0-0.2); Bilirubin, Total 0.4 mg/dL (0.2-1.0); CO2 22.3 mmol/L (21.0-32.0); CREATININE 0.6 mg/dL (0.55-1.02); Calcium 8.5 mg/dL (8.5-10.1); Chloride 107 mmol/L (98-107); Glucose 103 mg/dL (74-106); Magnesium 1.4 mg/dL (1.8-2.4); PHOSPHORUS 3.7 mg/dL (2.6-4.7); Potassium 3.9 mmol/L (3.5-5.1); Sodium 139 mmol/L (136-145); Total Protein 7.2 g/dL (6.4-8.2)
[2020-08-26] MEDS: Heparin 500 UNITS/5 ML SYRINGE IV (09:46)
[2020-08-29 14:51] LABS: Zinc, Serum 0.65 mcg/mL (0.66-1.10)
[2020-09-09] MEDS: Heparin 500 UNITS/5 ML SYRINGE IV (08:59)
[2020-09-09] MEDS: Normal Saline Flush 10 ML SYR IVP (08:59)
[2020-09-09 09:14] LABS: Anion Gap 12.7 mmol/L (3-11); BUN 11 mg/dL (7-18); CO2 22.3 mmol/L (21.0-32.0); CREATININE 0.6 mg/dL (0.55-1.02); Calcium 8.9 mg/dL (8.5-10.1); Chloride 105 mmol/L (98-107); Glucose 107 mg/dL (74-106); Magnesium 1.5 mg/dL (1.8-2.4); PHOSPHORUS 3.1 mg/dL (2.6-4.7); Potassium 3.6 mmol/L (3.5-5.1); Sodium 140 mmol/L (136-145)
[2020-09-09] MEDS: IRON SUCROSE COMPLEX 200 MG in Normal Saline 100 ML 440 MG IVPB (09:21)
== END 2020-09-21 23:59 | disposition home or self-care (01) ==
LOC: INF 02:17
PROVIDERS: Internal Medicine Gastroenterology; PCP Family Medicine; Visit Provider Family Medicine
DX: K91.2 Postsurgical malabsorption, not elsewhere classified (principal); E83.42 Hypomagnesemia; E87.6 Hypokalemia; D64.9 Anemia, unspecified; E43 Unspecified severe protein-calorie malnutrition; E61.0 Copper deficiency; E61.1 Iron deficiency
CPT/HCPCS: 36591; 80048; 80076; 96365; 96366; 82525; 83735; 84100; 84630; 85025; J1756

== ENCOUNTER 2020-10-21 05:47 | Outpatient (RCR) | payer BC, SELFPAY ==
[2020-09-22 00:05] VITALS: BP 125/78; PULSE 78; RESP 18; TEMP 36.5
[2020-09-23] MEDS: Normal Saline Flush 10 ML SYR IVP (08:57)
[2020-09-23] MEDS: Heparin 500 UNITS/5 ML SYRINGE (09:09)
[2020-09-23 09:14] LABS: Abs Immature Grans 0.04 10^3/uL (0.0-0.06); Absolute Basophil Count 0.23 10^3/uL (0.0-0.2); Absolute Eosinophil Count 0.73 10^3/uL (0.0-0.7); Absolute Lymphocyte Count 2.96 10^3/uL (1.2-3.4); Absolute Monocyte Count 0.77 10^3/uL (0.1-0.8); Basophils % 1.9; Eosinophils % 6.1; HCT 37.4 % (36.0-46.0); HGB 11.9 g/dL (11.2-15.7); Immature Grans % 0.3; Lymphocytes % 24.7; MCH 31.1 pg (27.0-33.0); MCHC 31.8 % (32.0-36.0); MCV 97.7 fL (80-95); MPV 10.4 fL (8.0-11.0); Monocytes % 6.4; Neutrophils % 60.6; Nucleated RBC 0 %; Platelet Count 347 10^3/uL (130-400); RBC 3.83 10^6/uL (3.93-5.22); RDW 14.6 % (11.7-14.6); RDW-SD 52.4 fL; WBC 11.97 10^3/uL (4.4-10.8)
[2020-09-23 09:15] LABS: Absolute Neutrophil Count 7.25 10^3/uL (1.2-6.7)
[2020-09-23 09:33] LABS: ALT 45 U/L (14-59); AST 29 U/L (15-37); Albumin 3.3 g/dL (3.4-5.0); Alkaline Phosphatase 134 U/L (46-116); BUN 12 mg/dL (7-18); Bilirubin, Direct 0.2 mg/dL (0.0-0.2); Bilirubin, Total 0.5 mg/dL (0.2-1.0); CREATININE 0.7 mg/dL (0.55-1.02); Calcium 9.2 mg/dL (8.5-10.1); Chloride 106 mmol/L (98-107); Glucose 114 mg/dL (74-106); Magnesium 1.6 mg/dL (1.8-2.4); PHOSPHORUS 3.6 mg/dL (2.6-4.7); Sodium 140 mmol/L (136-145); Total Protein 7.7 g/dL (6.4-8.2)
[2020-09-23 09:37] LABS: FREE T4 0.96 ng/dL (0.76-1.46); TSH 6.77 uIU/mL (0.36-3.74)
[2020-09-23 17:17] LABS: T3, Total 88 ng/dL (97-169)
[2020-09-27 14:53] LABS: Zinc, Serum 0.85 mcg/mL (0.66-1.10)
[2020-09-27 14:54] LABS: Copper, Serum 0.71 mcg/mL (0.75-1.45)
[2020-10-07] MEDS: Heparin 500 UNITS/5 ML SYRINGE IV (09:10)
[2020-10-07] MEDS: Normal Saline Flush 10 ML SYR IVP (09:10)
[2020-10-07 09:47] LABS: Anion Gap 10.9 mmol/L (3-11); BUN 13 mg/dL (7-18); CO2 20.1 mmol/L (21.0-32.0); CREATININE 0.6 mg/dL (0.55-1.02); Calcium 8.3 mg/dL (8.5-10.1); Chloride 107 mmol/L (98-107); Glucose 90 mg/dL (74-106); Magnesium 1.2 mg/dL (1.8-2.4); PHOSPHORUS 3.5 mg/dL (2.6-4.7); Potassium 3.7 mmol/L (3.5-5.1); Sodium 138 mmol/L (136-145)
== END 2020-10-22 23:59 | disposition home or self-care (01) ==
LOC: INF 05:47
PROVIDERS: PCP Family Medicine; Visit Provider Family Medicine
DX: K91.2 Postsurgical malabsorption, not elsewhere classified (principal); E83.42 Hypomagnesemia; E87.6 Hypokalemia; D64.9 Anemia, unspecified; E43 Unspecified severe protein-calorie malnutrition; E61.0 Copper deficiency; E61.1 Iron deficiency
CPT/HCPCS: 36591; 80048; 80076; 96365; 96366; 82525; 83735; 84100; 84439; 84443; 84480; 84630; 85025

== ENCOUNTER → 2020-11-07 14:16 | Outpatient (CLI) | payer BC, SELFPAY ==
--- NOTE | 2020-11-07 13:45 | DI.RAD_ITS ---
Exam(s) XR FOOT RT COMPLETE EXAM: XR FOOT RT COMPLETE CLINICAL HISTORY: ankle and foot injury, pop, [id number]. TECHNIQUE: 2D digital imaging was performed. COMPARISON: No exams were available for comparison FINDINGS: No evidence of acute fracture or diastasis of the Lisfranc joint. No metatarsal fractures evident. No to the midfoot appear unremarkable. Prominent inferior calcaneal spur is noted. IMPRESSION: DATA REPOSITORY: RADIATION DOSE DELIVERED:
--- NOTE | 2020-11-07 13:45 | DI.RAD_ITS ---
Exam(s) XR ANKLE RT COMPLETE EXAM: XR ANKLE RT COMPLETE CLINICAL HISTORY: injury, pop, pain, ankle and foot, [id number]. TECHNIQUE: 2D digital imaging was performed. COMPARISON: No exams were available for comparison FINDINGS: No evidence of fracture or widening of the mortise. Talar dome appears the unremarkable. Subtalar j oint appears unremarkable. Large inferior calcaneal spur is noted, this measuring 8 millimeters. No osseous tarsal coalition. Some osteopenia is evident. IMPRESSION: As above. No acute fracture. DATA REPOSITORY: RADIATION DOSE DELIVERED:
--- OUTSIDE RECORDS SUMMARY | 2020-11-07 14:19 | XMS_ITS ---
:1965 Author Care Team Providers Name Role Phone SMITA BURKETT MD Primary Care Provider [phone] Allergies Code Code System Name Reaction Severity Status Onset 723 RxNorm Amoxicillin ? ? Active ? 935412 RxNorm Byetta ? ? Active ? Medications Name Status Start Date Stop Date ? ? acetaminophen 500 mg tablet Active ? Not available prn acyclovir 400 mg tablet Completed ? 10/04/19 19 Advair Diskus 250 mcg-50 mcg/dose powder for inhalation Active ? Not available Inhale 1 inhalation twice a day by inhalation route for 90 days . Afluria Qd 2018- (36 mos Completed ? 03/27 up)(PF)60 mcg (15 mcg x4)/0.5 mL IM syringe albuterol sulfate 2.5 mg/3 mL (0.083 %) solution for nebuliz ation Completed 04/10/2016 04/01/2017 1 (one) Nebulized Soln: four times daily, as needed albuterol sulfate HFA 90 Active ? Not bony ilable mcg/actuation aerosol inhaler azithromycin 250 mg tablet Completed ? 05/07 azithromycin 500 mg tablet Completed ? 05/07 Bactrim DS 800 mg-160 mg tablet Completed 08/01/2015 09/05/2015 1 (one) Tablet: bid - twice daily BD Luer-Laura Syringe 3 mL 25 x 5/8 Active ? Not available USE WITH B12 Byetta 10 mcg/dose(250 mcg/mL)2.4 mL subcutaneous pen inject or Completed 03/31/2015 06/10/2015 1 (one) Soln Pen-inj Soln Pen-inj: two times daily Byetta 5 mcg/dose (250 mcg/mL)1.2 mL subcutaneous pen inject or Completed 03/31/2015 06/10/2015 1 (one) Soln Pen-inj Soln Pen-inj: two times daily Celebrex 200 mg capsule Completed ? 03/27/19 20 Take 1 capsule every day by oral route. clarithromycin 500 mg tablet Completed ? 12/2017 colestipol 1 gram tablet Active ? Not bony ilable cyanocobalamin (vit B-12) 1,000 Active ? Not available mcg/mL injection solution cyclobenzaprine 5 mg tablet Completed ? 06/2020 TAKE 1 TABLET BY MOUTH THREE TIMES DAILY FOR 5 DAYS NEEDED diphenoxylate-atropine 2.5 mg-0.025 mg tablet Completed ? 03/28/2018 Take 1 tablet 4 times a day by oral route for 30 days. doxycycline monohydrate 100 mg capsule Completed ? 03/28/2020 TAKE 1 CAPSULE BY MOUTH TWICE DAILY FOR 7 DAYS ergocalciferol (vitamin D2) 1,250 Active ? Not available mcg (50,000 unit) capsule erythromycin 5 mg/gram (0.5 %) eye ointment Completed 09/2210/18/2014 1 (one) Ointment: three times daily to affected eye fiber Completed ? 08/15/2020 dose daily fluconazole 200 mg tablet Completed ? 2018 Gattex 30-Vial 5 mg subcutaneous Active ? Not available kit hydrocodone 5 mg-acetaminophen 325 mg tablet Completed 12/12/2015 1 (one) Tablet Tablet: every four to six hours as needed ibuprofen 600 mg tablet Active ? Not avai lable prn levofloxacin 750 mg tablet Completed ? 10/03 levothyroxine 100 mcg tablet Active ? Not available TAKE 1 TABLET BY MOUTH DAILY levothyroxine 125 mcg tablet Completed ? 12/2017 levothyroxine 300 mcg tablet Active ? Not available TAKE 1 TABLET BY MOUTH EVERY DAY levothyroxine 50 mcg tablet Active ? Not available loperamide 2 mg capsule Active ? Not avai lable prn losartan 100 mg-hydrochlorothiazide 25 mg tablet Completed 04/10/2016 11/16/2016 1 (one) Tablet: daily metformin 1,000 mg tablet Completed 07/09/20162016 1 (one) Tablet: two times daily metronidazole 500 mg tablet Completed ? 09/22 Multivitamin And Mineral Active ? Not bony ilable 3 tablets daily OneTouch Delica Lancets 33 gauge Completed ? 03/28/2018 Take 1 each 4 times a day by miscell. route for 79 days. OneTouch Ultra Blue Test Strip Completed ? 0 03/28/2018 Take 1 strip 4 times a day by miscell. route for 90 days. OneTouch UltraMini kit Completed ? 9 oxycodone-acetaminophen 5 mg-325 mg tablet Completed ? 03/27/2019 Take 1 tablet every 6 hours by oral route. pantoprazole 40 mg tablet,delayed release Active ? Not available TAKE 1 TABLET BY MOUTH TWICE DAILY peg-electrolyte solution 420 gram Completed ? 03/17/2020 oral solution potassium chloride 20 mEq/15 mL oral liquid Completed ? 03/28/2018 Take by oral route for 3 days. potassium chloride ER 20 mEq tablet,extended release(part/cryst) Active ? Not available TAKE 1 TABLET BY MOUTH TWICE DAILY prednisone 10 mg tablet Completed 12/20/2015 11/17/19 17 2 (two) Tablet: daily Probiotic Completed ? 03/27/2019 1 daily prochlorperazine maleate 5 mg tablet Active ? Not available TAKE 1 TABLET BY MOUTH EVERY 6 HOURS NEEDED FOR NAUSEA Protein Nutritional Shake Active ? Not av ailable twice daily Synthroid 25 mcg tablet Completed 08/05/2014 12/08/19 15 1 (one) Tablet Tablet: daily tobramycin 0.3 % eye drops Completed ? 07/15 TPN Electrolytes Completed ? 03/27/2019 valacyclovir 1 gram tablet Active ? Not a vailable TAKE 1 TABLET BY MOUTH THREE TIMES DAILY FOR 7 DAYS Victoza 2-Lucas 0.6 mg/0.1 mL (18 mg/3 mL) subcutaneous pen in jector Completed 07/09/2016 11/16/2016 1.8 Milligram: daily vitamin B12 1,000 mcg-folic acid 400 mcg sublingual tablet Compl eted ? 03/27/2019 Place 1 tablet every day by sublingual route. Xifaxan 550 mg tablet Completed 08/15/2020 08/15/2020 Take by oral route for 20 days. Notes: med reconciled 03/17/2020 Problems Name Status Onset Date Source ? Type 2 Diabetes Mellitus without Active 10/03/2017 ? Complication Short Bowel Syndrome Active 10/03/2017 ? Moderate Persistent Asthma Active 05/02/2018 ? Sore Throat Symptom Active 05/29/2018 ? Fever Unknown 05/29/2018 ? Dental Abscess Unknown 10/03/2018 ? Fracture of Lower Limb Unknown 10/31/2018 ? Immunosuppression Active 08/15/2020 ? Hypothyroidism Active ? ? Hyperlipidemia Active ? ? Anemia Active ? ? Conjunctivitis Unknown ? History Hypertensive Disorder Active ? ? Acute Sinusitis Unknown ? History Acute Maxillary Sinusitis Unknown ? Histor y Intestinal Volvulus Active ? ? Low Back Pain Active ? ? Muscle Pain Unknown ? History Family History of Malignant Neoplasm Unknown ? ? of Digestive Organ Sprain of Right Wrist Unknown ? History Hyperglycemia Due to Type 2 Diabetes Unknown ? History Mellitus Procedures Date Name Performed by ? 12/08/2019 Port Vascular Access Insertion Informati on not available Notes: left subclavian mediport 11/10/2018 Open Reduction of Fracture with Internal Fixation Information not available Notes: done at [facility] 09/12/2018 Colonoscopy Information not avai lable 01/02/2016 Colonoscopy Information not avai lable Notes: diverticulosis ? Insertion of Peripherally Inserted Infor mation not available Central Catheter ? Appendectomy Information not avai lable ? Cholecystectomy Information not avai lable ? Hernia Repair Information not avai lable Notes: incisional, abdominal Results Lab Results Date Name Specimen Result Interpretation Description Value Range Status Address ? 03/17/2020 SARS CoV 2 ? No ? ? ? [facility] RNA observation [place] (COVID-19), recorded. Susanna RODRIGEZ, termite control representative-PCR, Hosp ital: Respiratory [address] [place] [address] Specimen Liam Clinton [facility] 04/07/2019 T3, Total, ? No ? ? ? No [facility] Serum observation [place] recorded. [facility]: [address] [place], [place] [address], [place] 07/21/2018 T4, Free, ? No ? ? ? Nor [facility] Serum observation Verm[place] recorded. [facility]: [facility] [address], [place] 10/01/2017 T4, Free, ? No ? ? ? Nor [facility] Serum observation [place] recorded. [facility]: [address] [place], [place] [address], [place] 10/01/2017 TSH, Serum or ? No ? ? ? [facility] Plasma observation [place] recorded. [facility]: [address] [place], [place] [address], [place] 08/29/2016 Venipuncture BLD ? Venpn* ? ? Final [facility] L ab (Internal) : [address] 08/29/2016 Urinalysis, UR ? UA-color yellow pale Final [facility] Lab (Internal) : [address] ? ? UR ? UA-appear clear clear Final [facility] Hospital L ab (Internal) : [address] ? ? UR ? UA-spec >=1.030 1.003-1 Final [facility] Grav .035 Hospital L ab (Internal) : [address] ? ? UR ? UA-pH 5.5 4.6-8.0 Final [facility] ntr [pH] [pH] Hospital L ab (Internal) : [address] ? ? UR ? UA-leuk Est negativ negativ Final [facility] Hospital L ab (Internal) : [address] ? ? UR ? UA-nitrite negativ negativ Final [facility] Country e e Hospital L (Internal) : [address] ? ? UR ABNORMAL UA-prot trace negativ Final [facility] e Hospital L (Internal) : [address] ? ? UR ? UA-gluc negativ negativ Final [facility] e e Hospital [facility] (Internal) : [address] ? ? UR ? UA-ketone negativ negativ Final [facility] Country e e Hospital L (Internal) : [address] ? ? UR ? UA-urobil normal normal Final [facility] (Internal) : [address] ? ? UR ? UA-bili negativ negativ Final [facility] e e Hospital [facility] (Internal) : [address] ? ? UR ? UA-blood negativ negativ Final [facility] e e Hospital L (Internal) : [address] ? ? UR ABNORMAL UA-WBC 3-5 0-3 Final [facility] ount [hpf] [hpf] Hospital L ab (Internal) : [address] ? ? UR ? UA-RBC 0-2 0-2 Final [facility] ntry [hpf] [hpf] Hospital L ab (Internal) : [address] ? ? UR ABNORMAL UA-bacteria moderat none Final orth Country e [hpf] seen Hospital Lab [hpf] (Internal) : [address] ? ? UR ABNORMAL UA-epitheli few none Final [facility] al [hpf] seen Hospital L ab [hpf] (Internal) : [address] ? ? UR ? UA-mucus none none Final [facility] ount seen seen Hospital L ab [hpf] [hpf] (Internal) : [address] 08/29/2016 Culture, UR ? Final microbi ? Final [facility] Urine ology Hospital L ab results (Internal ): [address] 08/29/2016 Lactic Acid, PLASMA High La 4.3 0.7-2.1 Final [facility] Blood mmol/L mmol/L Hospital L ab (Internal) : [address] 08/29/2016 Neutrophil BLD ? Anc-manual 15.20 ? [place] [facility] Count, 10*3/uL Hospital Lab Absolute (Interna l): (Anc), Blood [address] 08/29/2016 Differential, BLD ? Polys 48 % 40-75 % Final [facility] Manual, Blood Hos pital Lab (Internal) : [address] ? ? BLD High Bands 26 % 0-5 % Final [facility] Hospital L ab (Internal) : [address] ? ? BLD Low Lymphs 11 % 20-50 % Final [facility] L ab (Internal) : [address] ? ? BLD ? Rusk 7 % 2-10 % Final [facility] ab (Internal) : [address] ? ? BLD ? Eos 0 % 0-6 % Final [facility] Hospital L ab (Internal) : [address] ? ? BLD High Baso 2 % 0-1 % Final [facility] L ab (Internal) : [address] ? ? BLD ? Atyp Lymph 0 % ? Final [facility] ab (Internal) : [address] ? ? BLD High Young Forms 2 % 0-0 % Final [facility] Hospital L ab (Internal) : [address] ? ? BLD ? Keeler 4 % ? [facility] : [address] ? ? BLD ABNORMAL Plts, Est. elevate adequat Final [facility] d e Hospital L ab (Internal) : [address] ? ? BLD ABNORMAL RBC abnorma normal Final [facility] ountry Morphology l Hospit al Lab (Internal) : [address] ? ? BLD ? Aniso small ? [facility] try [facility] L ab (Internal) : [address] 08/29/2016 CMP, Serum or PLASMA High g/r 166 74-106 Final [facility] Plasma mg/dL mg/dL Hospital L ab (Internal) : [address] ? ? PLASMA High Bun 21 7-17 Final [facility] try mg/dL mg/dL Hospital L ab (Internal) : [address] ? ? PLASMA High Crea 2.50 0.52-1. Final [facility] ntry mg/dL 04 Hospital L ab mg/dL (Internal) : [address] ? ? PLASMA Low Ca 8.0 8.4-10. Final [facility] ntry mg/dL 2 mg/dL Hospital Lab (Internal) : [address] ? ? PLASMA ? Na 138 137-145 Final [facility] ntry mmol/L mmol/L Hospital L ab (Internal) : [address] ? ? PLASMA ? K 4.7 3.5-5.1 Final [facility] ntry mmol/L mmol/L Hospital L ab (Internal) : [address] ? ? PLASMA ? Cl 107 98-107 [facility] try mmol/L mmol/L Hospital L ab (Internal) : [address] ? ? PLASMA ? Tco2 22.0 22.0-30 Final [facility] ntry mmol/L .0 Hospital L ab mmol/L (Internal) : [address] ? ? PLASMA Low Tp 5.8 6.3-8.2 Final [facility] ntry g/dL g/dL Hospital L ab (Internal) : [address] ? ? PLASMA Low Alb 2.9 3.5-5.0 Final [facility] ntry g/dL g/dL Hospital L ab (Internal) : [address] ? ? PLASMA ? Tbil 1.3 0.2-1.3 Final [facility] ntry mg/dL mg/dL Hospital L ab (Internal) : [address] ? ? PLASMA ? Alp 72 U/L 50-136 Final [facility] try U/L Hospital L ab (Internal) : [address] ? ? PLASMA High Alt (Sgpt) 84 U/L 9-52 Final [facility] U/L Hospital L ab (Internal) : [address] ? ? PLASMA High Ast (Sgot) 76 U/L 14-36 Final [facility] U/L Hospital L ab (Internal) : [address] 08/29/2016 CBC W/ Auto BLD High Wbc 20.5 5.0-10. Final [facility] Diff 10*3/uL 0 Hospital Lab 10*3/uL (Internal ): [address] ? ? BLD ? Rbc 4.91 4.10-5. Final [facility] ntry 10*6/uL 30 Hospital Lab 10*6/uL (Internal ): [address] ? ? BLD ? Hgb 13.1 12.0-16 Final [facility] ntry g/dL .0 g/dL Hospital Lab (Internal) : [address] ? ? BLD ? Hct 41.6 % 37.0-47 Final [facility] ntry .0 % Hospital L ab (Internal) : [address] ? ? BLD ? Mcv 84.7 fL 80.0-96 Final [facility] untry .0 fL Hospital L ab (Internal) : [address] ? ? BLD ? Mch 26.7 pg 26.0-32 Final [facility] untry .0 pg Hospital L ab (Internal) : [address] ? ? BLD ? Mchc 31.5 31.0-35 Final [facility] ntry g/dL .0 g/dL Hospital Lab (Internal) : [address] ? ? BLD High Rdw 17.1 % 11.5-14 Final [facility] ntry .5 % Hospital L ab (Internal) : [address] ? ? BLD High Plt 455 130-450 Final [facility] ntry 10*3/uL 10*3/uL Hospital Lab (Internal) : [address] 08/29/2016 Culture, BLD ? Final microbi ? Final [facility] Blood ology Hospital L ab results (Internal ): [address] 08/28/2016 Venipuncture BLD ? Venpn* ? ? Final [facility] Hospital L ab (Internal) : [address] 08/28/2016 Lactic Acid, PLASMA High La 3.9 0.7-2.1 Final [facility] Blood mmol/L mmol/L Hospital L ab (Internal) : [address] 08/28/2016 BMP, Serum or PLASMA High g/r 160 74-106 Final [facility] Plasma mg/dL mg/dL Hospital L ab (Internal) : [address] ? ? PLASMA ? Bun 17 7-17 Final [facility] try mg/dL mg/dL Hospital L ab (Internal) : [address] ? ? PLASMA High Crea 1.70 0.52-1. Final [facility] ntry mg/dL 04 Hospital L ab mg/dL (Internal) : [address] ? ? PLASMA Low Ca 8.1 8.4-10. Final [facility] ntry mg/dL 2 mg/dL Hospital Lab (Internal) : [address] ? ? PLASMA Low Na 136 137-145 Final [facility] ntry mmol/L mmol/L Hospital L ab (Internal) : [address] ? ? PLASMA ? K 4.8 3.5-5.1 Final [facility] ntry mmol/L mmol/L Hospital L ab (Internal) : [address] ? ? PLASMA High Cl 109 98-107 Final [facility] try mmol/L mmol/L Hospital L ab (Internal) : [address] ? ? PLASMA Low Tco2 18.0 22.0-30 Final [facility] ntry mmol/L .0 Hospital L ab mmol/L (Internal) : [address] 08/28/2016 Cbc BLD High Wbc 15.4 5.0-10. Final [facility] 10*3/uL 0 Hospital Lab 10*3/uL (Internal ): [address] [place] [address] ? ? BLD High Rbc 5.36 4.10-5. Final [facility] n[facility] 10*6/uL 30 Hospital Lab 10*6/uL (Internal ): [address] [place] ? ? BLD ? Hgb 14.3 12.0-16 Final [facility] ntry g/dL .0 g/dL Hospital Lab (Internal) : [address] [place] ? ? BLD ? Hct 44.8 % 37.0-47 Final [facility] ntry .0 % Hospital L ab (Internal) : [address] [place] ? ? BLD ? Mcv 83.6 fL 80.0-96 Final [facility] untry .0 fL Hospital L ab (Internal) : [address] [place] ? ? BLD ? Mch 26.7 pg 26.0-32 Final [facility] untry .0 pg Hospital L ab (Internal) : [address] [place] ? ? BLD ? Mchc 31.9 31.0-35 Final [facility] ntry g/dL .0 g/dL Hospital Lab (Internal) : [address] [place] ? ? BLD High Rdw 17.6 % 11.5-14 Final [facility] ntry .5 % Hospital L ab (Internal) : [address] [place] ? ? BLD ? Plt 386 130-450 Final [facility] ntry 10*3/uL 10*3/uL Hospital Lab (Internal) : [address] [place] ? ? BLD ? Anc 13.11 ? Final [place] [facility] try 10*3/uL Hospital Lab (Internal) : [address] [place] 08/28/2016 Cbc BLD CRITICAL Wbc 33.2 5.0-10. Final [facility] Country HIGH 10*3/uL 0 Hospital Lab 10*3/uL (Internal ): [address] [place] ? ? BLD High Rbc 5.39 4.10-5. Final [facility] 10*6/uL 30 Hospital Lab 10*6/uL (Internal ): [address] [place] ? ? BLD ? Hgb 14.7 12.0-16 Final [facility] ntry g/dL .0 g/dL Hospital Lab (Internal) : [address] ? ? BLD ? Hct 44.3 % 37.0-47 Final [facility] ntry .0 % Hospital L ab (Internal) : [address] ? ? BLD ? Mcv 82.2 fL 80.0-96 Final [facility] untry .0 fL Hospital L ab (Internal) : [address] ? ? BLD ? Mch 27.3 pg 26.0-32 Final [facility] untry .0 pg Hospital L ab (Internal) : [address] ? ? BLD ? Mchc 33.2 31.0-35 Final [facility] ntry g/dL .0 g/dL Hospital Lab (Internal) : [address] ? ? BLD High Rdw 17.4 % 11.5-14 Final [facility] ntry .5 % Hospital L ab (Internal) : [address] ? ? BLD High Plt 455 130-450 Final [facility] ntry 10*3/uL 10*3/uL Hospital Lab (Internal) : [address] [place] ? ? BLD ? Anc 29.91 ? Final [place] [facility] try 10*3/uL Hospital Lab (Internal) : [address] 08/28/2016 Pathology BLD ? Smear see ? Final [facility] Country Review, Smear Review comment Ho spital Lab (Internal) : [address] 08/27/2016 Neutrophil BLD ? Anc-manual 21.98 ? [place] [facility] Count, 10*3/uL Hospital Lab Absolute (Interna l): (Anc), Blood [address] 08/27/2016 Differential, BLD High Polys 84 % 40-75 % Final [facility] Manual, Blood Hos pital Lab (Internal) : [address] ? ? BLD ? Bands 0 % 0-5 % [facility] try Hospital L ab (Internal) : [address] ? ? BLD Low Lymphs 10 % 20-50 % [facility] : [address] ? ? BLD ? Rusk 6 % 2-10 % Final [facility] Hospital L ab (Internal) : [address] ? ? BLD ? Eos 0 % 0-6 % Final [facility] Hospital L ab (Internal) : [address] ? ? BLD ? Baso 0 % 0-1 % Final [facility] Hospital L ab (Internal) : [address] ? ? BLD ? Atyp Lymph 0 % ? Final [facility] Hospital L ab (Internal) : [address] ? ? BLD ? Plts, Est. adequat adequat Final [facility] Country e e Hospital L ab (Internal) : [address] ? ? BLD ABNORMAL RBC abnorma normal Final [facility] ountry Morphology l Hospit al Lab (Internal) : [address] ? ? BLD ? Aniso small ? Final [facility] Hospital L ab (Internal) : [address] 08/27/2016 CMP, Serum or S High g/r 155 74-106 Final [facility] Plasma mg/dL mg/dL Hospital L ab (Internal) : [address] ? ? S ? Bun 14 7-17 Final [facility] mg/dL mg/dL Hospital L ab (Internal) : [address] ? ? S ? Crea 0.80 0.52-1. Final [facility] ntry mg/dL 04 Hospital L ab mg/dL (Internal) : [address] ? ? S ? Ca 9.5 8.4-10. Final [facility] ntry mg/dL 2 mg/dL Hospital Lab (Internal) : [address] ? ? S ? Na 137 137-145 Final [facility] ntry mmol/L mmol/L Hospital L ab (Internal) : [address] ? ? S Low K 3.3 3.5-5.1 Final [facility] ntry mmol/L mmol/L Hospital L ab (Internal) : [address] ? ? S Low Cl 97 98-107 [facility] try mmol/L mmol/L Hospital L ab (Internal) : [address] ? ? S ? Tco2 27.0 22.0-30 Final [facility] ntry mmol/L .0 Hospital L ab mmol/L (Internal) : [address] ? ? S High Tp 8.3 6.3-8.2 Final [facility] ntry g/dL g/dL Hospital L ab (Internal) : [address] ? ? S ? Alb 4.4 3.5-5.0 Final [facility] ntry g/dL g/dL Hospital L ab (Internal) : [address] ? ? S ? Tbil 0.6 0.2-1.3 Final [facility] ntry mg/dL mg/dL Hospital L ab (Internal) : [address] ? ? S ? Alp 109 U/L 50-136 Final [facility] ntry U/L Hospital L ab (Internal) : [address] ? ? S ? Alt (Sgpt) 26 U/L 9-52 Final [facility] U/L Hospital L ab (Internal) : [address] ? ? S ? Ast (Sgot) 23 U/L 14-36 Final [facility] U/L Hospital L ab (Internal) : [address] 08/27/2016 Lipase, Serum S ? Lip 35 U/L 23-300 Final [facility] or Plasma U/L Hospita l Lab (Internal) : [address] 08/27/2016 CBC W/ Auto BLD CRITICAL Wbc 26.2 5.0-10. Final [facility] Diff HIGH 10*3/uL 0 Hospital Lab 10*3/uL (Internal ): [address] ? ? BLD High Rbc 5.99 4.10-5. Final [facility] ntry 10*6/uL 30 Hospital Lab 10*6/uL (Internal ): [address] ? ? BLD High Hgb 16.1 12.0-16 Final [facility] ntry g/dL .0 g/dL Hospital Lab (Internal) : [address] ? ? BLD High Hct 48.4 % 37.0-47 Final [facility] ntry .0 % Hospital L ab (Internal) : [address] mat[place] ? ? BLD ? Mcv 80.8 fL 80.0-96 Final [facility] untry .0 fL Hospital L ab (Internal) : [address] matheus ? ? BLD ? Mch 26.9 pg 26.0-32 Final [facility] untry .0 pg Hospital L ab (Internal) : [address] ? ? BLD ? Mchc 33.3 31.0-35 Final [facility] ntry g/dL .0 g/dL Hospital Lab (Internal) : [address] ? ? BLD High Rdw 18.0 % 11.5-14 Final [facility] ntry .5 % Hospital L ab (Internal) : [address] ? ? BLD High Plt 467 130-450 Final [facility] ntry 10*3/uL 10*3/uL Hospital Lab (Internal) : [address] 07/02/2016 T3, Total, S ? Total T3 100 60-181 Final [facility] Serum NG/dL NG/dL Hospital L ab (Internal) : [address] 07/02/2016 HbA1C BLD High Ha1C 7.2 % 4.0-6.0 Final [facility] (Hemoglobin % Hospi jamal Lab a1C), Blood (Inte rnal): [address] 07/02/2016 T4, Free, S ? Ft4 1.23 0.78-2. Final [facility] Serum NG/dL 19 Hospital L ab NG/dL (Internal) : [address] 07/02/2016 RBC BLD ? Aniso moderat ? Final [facility] Morphology, e Hospi jamal Lab Blood (Internal) : [address] 07/02/2016 Lipid Panel, S ? Chol 173 50-200 Final [facility] Serum mg/dL mg/dL Hospital L ab (Internal) : [address] ? ? S High Trig 229 10-150 Final [facility] try mg/dL mg/dL Hospital L ab (Internal) : [address] ? ? S Low Hdl 30 40-60 Final [facility] try mg/dL mg/dL Hospital L ab (Internal) : [address] ? ? S ? Ldl 97 0-130 Final [facility] try mg/dL mg/dL Hospital L ab (Internal) : [address] 07/02/2016 CBC W/ Auto BLD High Wbc 13.6 5.0-10. Final [facility] Diff 10*3/uL 0 Hospital Lab 10*3/uL (Internal ): [address] ? ? BLD ? Rbc 5.20 4.10-5. [facility] 10*6/uL 30 Hospital Lab 10*6/uL (Internal ): [address] [place] ? ? BLD ? Hgb 13.6 12.0-16 Final [facility] ntry g/dL .0 g/dL Hospital Lab (Internal) : [address] [place] ? ? BLD ? Hct 42.6 % 37.0-47 [facility] .0 % Hospital L ab (Internal) : [address] ? ? BLD ? Mcv 81.9 fL 80.0-96 Final [facility] .0 fL Hospital L ab (Internal) : [address] [place] ? ? BLD ? Mch 26.2 pg 26.0-32 Final [facility] .0 pg Hospital L ab (Internal) : [address] [place] ? ? BLD ? Mchc 31.9 31.0-35 Final [facility] ntry g/dL .0 g/dL Hospital Lab (Internal) : [address] ? ? BLD High Rdw 17.4 % 11.5-14 Final [facility] .5 % Hospital L ab (Internal) : [address] ? ? BLD ? Plt 244 130-450 [facility] 10*3/uL 10*3/uL Hospital Lab (Internal) : [address] ? ? BLD ? Anc 8.82 ? Final [facility] try 10*3/uL Hospital Lab (Internal) : [address] ? ? BLD ? Neutro 65.0 % 40.0-75 Final [facility] .0 % Hospital L ab (Internal) : [address] ? ? BLD ? Lymph 20.3 % 20.0-50 [facility] .0 % Hospital L ab (Internal) : [address] ? ? BLD ? Rusk 7.6 % 2.0-10. [facility] 0 % Hospital L ab (Internal) : [address] ? ? BLD ? Eos 5.2 % 1.0-6.0 [facility] % Hospital L ab (Internal) : [address] ? ? BLD High Baso 1.2 % 0.0-1.0 [facility] % Hospital L ab (Internal) : [address] ? ? BLD ? Ig 0.7 % 0.0-0.9 [facility] % Hospital L ab (Internal) : [address] 07/02/2016 CMP, Serum or S High g/r 141 74-106 Final [facility] Plasma mg/dL mg/dL Hospital L ab (Internal) : [address] ? ? S High Bun 18 7-17 Final [facility] try mg/dL mg/dL Hospital L ab (Internal) : [address] ? ? S ? Crea 0.70 0.52-1. [facility] mg/dL 04 Hospital L ab mg/dL (Internal) : [address] ? ? S ? Ca 8.9 8.4-10. [facility] mg/dL 2 mg/dL Hospital Lab (Internal) : [address] ? ? S ? Na 141 137-145 [facility] mmol/L mmol/L Hospital L ab (Internal) : [address] ? ? S ? K 3.9 3.5-5.1 [facility] mmol/L mmol/L Hospital L ab (Internal) : [address] ? ? S ? Cl 101 98-107 [facility] mmol/L mmol/L Hospital L ab (Internal) : [address] ? ? S ? Tco2 27.0 22.0-30 [facility] mmol/L .0 Hospital L ab mmol/L (Internal) : [address] ? ? S ? Tp 7.5 6.3-8.2 Final [facility] ntry g/dL g/dL Hospital L ab (Internal) : [address] ? ? S ? Alb 3.8 3.5-5.0 Final [facility] ntry g/dL g/dL Hospital L ab (Internal) : [address] ? ? S ? Tbil 0.3 0.2-1.3 Final [facility] ntry mg/dL mg/dL Hospital L ab (Internal) : [address] ? ? S ? Alp 98 U/L 50-136 Final [facility] try U/L Hospital L ab (Internal) : [address] ? ? S ? Alt (Sgpt) 34 U/L 9-52 Final [facility] U/L Hospital L ab (Internal) : [address] ? ? S High Ast (Sgot) 39 U/L 14-36 Final [facility] U/L Hospital L ab (Internal) : [address] 07/02/2016 TSH, Serum or S Low Tsh 0.30 0.47-4. Final [facility] Plasma u[IU]/m 68 Hospital Lab L u[IU]/m (Internal ): L [address] Past Encounters 08/15/2020 Herpes Zoster Kennedi Villarreal, [employer]ING LABOURER: [address] [place] [address], Ph. 04/04/2020 Hypothyroidism; Moderate Persistent Asth ma Smita Burkett MD: [address] [place] [address], Ph. 03/17/2020 Upper Respiratory Infection; Low Back Pa in; Pain in Left Knee Kennedi Villarreal, [employer] LABOURER: [address] [place] [address], Ph. 01/12/2020 Administration of Influenza Vaccine Smita Burkett MD: [address] [place] [address], Ph. 10/26/2019 Hypothyroidism; Type 2 Diabetes Mellitus without Complication; Short Bowel Syndrome; Anemia Smita Burkett MD: [address] [place] [address], Ph. 07/16/2019 Hypothyroidism; Moderate Persistent Asth ma Smita Burkett MD: [address] [place] [address], Ph. Social History Tobacco Smoking Status Never Smoker Vaccine List Vaccine Type COVID-19, mRNA, LNP-S, PF, 100 mcg/0.5 m L dose 05/11/2020 06/08/2020?0.5 mL influenza, injectable, quadrivalent, pre servative free 01/10/2015?0.5 mL 02/03/2018?0.5 mL 01/12/2020?0.5 mL influenza, seasonal, injectable 03/25/2014 pneumococcal polysaccharide PPV23 03/31/2015?0.5 mL Tdap 01/10/2015?0.5 mL Plan of Care Patient Instructions Follow-up as scheduled. Reminders Provider Appointments None recorded. ? ? Lab None recorded. ? ? Referral None recorded. ? ? Procedures None recorded. ? ? Surgeries None recorded. ? ? Imaging None recorded. ? ? Vitals 08/15/2020 02:40PM Same Day 20 Height Weight BMI Blood Pressure 162.56 cm 56.25 kg 21.3 kg/m2 112/70 mm[Hg] 04/04/2020 09:40AM Follow Up 20 Height Weight BMI Blood Pressure 162.56 cm 55.34 kg 20.9 kg/m2 106/62 mm[Hg] 03/17/2020 08:00AM Acute 20 Height Weight BMI Blood Pressure 162.56 cm 56.93 kg 21.5 kg/m2 108/72 mm[Hg] 01/12/2020 04:00PM Nurse 20 Height 162.56 cm 10/26/2019 09:00AM Follow Up 20 Height Weight BMI Blood Pressure 162.56 cm 56.93 kg 21.5 kg/m2 112/70 mm[Hg] 07/16/2019 01:40PM Follow Up 20 Height 162.56 cm 03/27/2019 03:20PM Follow Up 40 Height Weight BMI Blood Pressure 162.56 cm 57.15 kg 21.6 kg/m2 110/70 mm[Hg] 10/03/2018 02:40PM Follow Up 20 Height Weight BMI Blood Pressure 162.56 cm 62.14 kg 23.5 kg/m2 104/72 mm[Hg] 03/28/2018 01:20PM Follow Up 40 Height Weight BMI Blood Pressure 162.56 cm 64.67 kg 24.5 kg/m2 110/60 mm[Hg] 10/01/2017 04:00PM Follow Up 30 Weight Blood Pressure 77.66 kg 114/80 mm[Hg] 06/28/2017 Weight Blood Pressure 85.68 kg 130/72 mm[Hg] 04/01/2017 Weight Blood Pressure 95.25 kg 94/62 mm[Hg] 11/16/2016 Weight Blood Pressure 112.94 kg 120/78 mm[Hg] 07/09/2016 Weight Blood Pressure 136.98 kg 128/82 mm[Hg] 04/10/2016 Blood Pressure 150/80 mm[Hg] 02/14/2016 Weight Blood Pressure 136.4 kg 140/90 mm[Hg] 01/17/2016 Height Weight Blood Pressure 161.5 cm 135.5 kg 150/88 mm[Hg] 12/20/2015 Blood Pressure 138/70 mm[Hg] 12/12/2015 Weight Blood Pressure 134.26 kg 130/70 mm[Hg] 09/05/2015 Weight Blood Pressure 138.35 kg 128/78 mm[Hg] 08/01/2015 Height Weight Blood Pressure 162.56 cm 139.71 kg 150/80 mm[Hg] 06/10/2015 Weight Blood Pressure 141.52 kg 122/70 mm[Hg] 04/22/2015 Height Weight Blood Pressure 162.56 cm 140.61 kg 132/84 mm[Hg] 03/31/2015 Weight Blood Pressure 143.79 kg 142/82 mm[Hg] 01/10/2015 Height Weight Blood Pressure 162.56 cm 142.43 kg 132/100 mm[Hg] 12/28/2014 Blood Pressure 128/70 mm[Hg] 12/21/2014 Blood Pressure 138/78 mm[Hg] 12/07/2014 Blood Pressure 128/88 mm[Hg] 10/08/2014 Weight Blood Pressure 143.11 kg 126/78 mm[Hg] 08/05/2014 Blood Pressure 124/80 mm[Hg] 07/08/2014 Weight Blood Pressure 142.84 kg 148/94 mm[Hg]
--- OUTSIDE RECORDS SUMMARY | 2020-11-07 14:19 | XMS_ITS | Encounter Summary ---
:1965 Author Care Team Providers Name Role Phone Robbie Philippe MD Primary Care Provider [phone] Reason for Visit 55 yr. old female here for evaluation of a painful rash Assessment and Plan 1. Herpes zoster will treat with valacyclovir 1 g TID for 7 days, may consider extending treatment if not resolved due to immune compromised status. call infusion center at [facility] to see if she should still be se en to get her copper infusion. ? valacyclovir 1 gram tablet Discussion Note: None recorded.Patient educational handouts: No information available. Plan of Care Reminders Provider Appointments Follow up 04/04/2021 Robbie Philippe, 20 9:20AM MD Lab None ? ? recorded. Referral None ? ? recorded. Procedures None ? ? recorded. Surgeries None ? ? recorded. Imaging None ? ? recorded. Medications Name Start Date ? ? acetaminophen 500 mg tablet ? prn Advair Diskus 250 mcg-50 mcg/dose powder for inhalatio n ? Inhale 1 inhalation twice a day by inhalation route f or 90 days. albuterol sulfate HFA 90 mcg/actuation aerosol inhaler ? Inhale 2 puffs every 4 hours by inhalation route as n eeded for 90 days. BD Luer-Laura Syringe 3 mL 25 x 5/8 ? USE WITH B12 colestipol 1 gram tablet ? TAKE 2 TABLETS BY MOUTH TWICE DAILY. START WITH 1 TAB LET 2 TIMES DAILY cyanocobalamin (vit B-12) 1,000 mcg/mL injection solut ion ? ergocalciferol (vitamin D2) 1,250 mcg (50,000 unit) ca psule ? Take 1 capsule every week by oral route. Gattex 30-Vial 5 mg subcutaneous kit ? inject SC daily ibuprofen 600 mg tablet ? prn levothyroxine 100 mcg tablet ? TAKE 1 TABLET BY MOUTH DAILY levothyroxine 300 mcg tablet ? TAKE 1 TABLET BY MOUTH EVERY DAY levothyroxine 50 mcg tablet ? TAKE 1 TABLET BY MOUTH EVERY DAY DIRECTED loperamide 2 mg capsule ? prn Multivitamin And Mineral ? 3 tablets daily pantoprazole 40 mg tablet,delayed release ? TAKE 1 TABLET BY MOUTH TWICE DAILY potassium chloride ER 20 mEq tablet,extended release(p art/cryst) ? TAKE 1 TABLET BY MOUTH TWICE DAILY prochlorperazine maleate 5 mg tablet ? TAKE 1 TABLET BY MOUTH EVERY 6 HOURS NEEDED FOR NA USEA Protein Nutritional Shake ? twice daily valacyclovir 1 gram tablet ? TAKE 1 TABLET BY MOUTH THREE TIMES DAILY FOR 7 DAYS Notes: med reconciled 03/17/2020 Medications Administered None recorded. Vitals Height Weight BMI Blood Pressure 5 ft 4 in 123 lbs 16 oz 21.3 kg/m2 112/70 mm[Hg] Results Lab Results None recorded. Allergies Code Code System Name Reaction Severity Onset 723 RxNorm Amoxicillin ? ? ? 536531 RxNorm [place] ? ? ? Problems Name Status Onset Date Source ? Type 2 Diabetes Mellitus without Complication Active ? Short Bowel Syndrome Active 10/03/2017 ? Moderate Persistent Asthma Active 05/02/2018 ? Sore Throat Symptom Active 05/29/2018 ? Immunosuppression Active 08/15/2020 ? Hypothyroidism Active ? ? Hyperlipidemia Active ? ? Anemia Active ? ? Hypertensive Disorder Active ? ? Intestinal Volvulus Active ? ? Low Back Pain Active ? ? Procedures Date Name Performed by ? 12/08/2019 Port Vascular Access Insertion Informati on not available Notes: left subclavian mediport 11/10/2018 Open Reduction of Fracture with Internal Fixation Information not available Notes: done at [facility] 09/12/2018 Colonoscopy Information not avai lable 01/02/2016 Colonoscopy Information not avai lable Notes: diverticulosis ? Insertion of Peripherally Inserted Infor mation not available Central Catheter ? Appendectomy Information not avai lable ? Cholecystectomy Information not avai lable ? Hernia Repair Information not avai lable Notes: incisional, abdominal Vaccine List Vaccine Type COVID-19, mRNA, LNP-S, PF, 100 mcg/0.5 m L dose 05/11/2020 06/08/2020?0.5 mL influenza, injectable, quadrivalent, pre servative free 01/10/2015?0.5 mL 02/03/2018?0.5 mL 01/12/2020?0.5 mL influenza, seasonal, injectable 03/25/2014 pneumococcal polysaccharide PPV23 03/31/2015?0.5 mL Tdap 01/10/2015?0.5 mL Social History Tobacco Smoking Status Never Smoker Are you currently employed? Y Are you blind or do you have N Notes: r temo glasses difficulty seeing? What is your code status? Full Code How much tobacco do you chew? none What was the date of your most 08/15/2020 recent tobacco screening? Do you or have you ever used Never used electronic e-cigarettes or vape? cigarettes Do you have an advanced N directive? What is your exercise level? None Live alone or with others? with others Notes: duke ruiz What is your level of alcohol Occasional Notes: 1 glass of wine consumption? a month Which of your hands is Right dominant? Animal exposure? Y Do you or have you ever used Never used smokeless tobacco smokeless tobacco? Language Difficulties No Notes: salvadorean Are you passively exposed to N smoke? Hard of hearing or deaf in one N or both ears? What is your level of caffeine Occasional consumption? What is your occupation? [employer] Functional Status No Impairment. Past Encounters 08/15/2020 Herpes Zoster Kennedi Villarreal, [employer] SALES MANAGER: [address] [facility] [address], [place] [address], Ph. History of Present Illness ? Rash/Skin Lesion Reported By: Patient HPI: Location: abdomen, back; pt. developed a red, spotted, raised rash, which is itchy & painful. In itially came on her left abdomen about 1 wk. ago. The rash spread to lowe r abdomen, then appeared on her left/ mid back area. Quality: itchy, p ainful; she denies any blistering. Context: no new detergents or skin pr oducts, no one else with similar rash, not scratching, recent travel; r ecently in [place]. Aggravating Factors: ; clothes touching rash area i s painful. Associated Symptoms: no fever Notes: <p>Pt with painful rash on a bdomen x 1 week, getting new lesions on left thoracic area also, tingling , painful, no therapies tried</p><p>
</p><p>Pt is immune compromised due to short gut and treatment. </p><p>
</p><p >ROS denies fevers, headaches, n/v, abdominal pain</p> Note: <p>
</p>Review of Systems: ROS as noted in the HPI Review of Systems None recorded. Physical Exam ? Brief PE Reported By: Patient General: General Appearance: healthy- appearing, well-nourished, well-developed. Level of Distress: NAD Skin: Inspection and palpation: wa rm and dry, good turgor; left abdomen, scattered erythematous papul es around T9/T10 dermatome and abomen, several more but fewer in nu mber on posterior T9/T10 dermatome Psychiatric: Affect appropriate; calm, co operative
== END ==
PROVIDERS: PCP Family Medicine; Visit Provider Physician Assistant
DX: S99.911A Unspecified injury of right ankle, initial encounter (principal); M77.31 Calcaneal spur, right foot; M85.88 Other specified disorders of bone density and structure, other site; X58.XXXA Exposure to other specified factors, initial encounter
CPT/HCPCS: 73610; 73630

== ENCOUNTER 2020-11-08 02:45 | Outpatient (RCR) | payer BC, SELFPAY ==
[2020-10-23 00:05] VITALS: BP 125/78; PULSE 78; RESP 18; TEMP 36.5
[2020-10-27] MEDS: Normal Saline Flush 10 ML SYR IVP (09:15)
[2020-10-27 09:44] LABS: BUN 15 mg/dL (7-18); CREATININE 0.5 mg/dL (0.55-1.02); Calcium 8.4 mg/dL (8.5-10.1); Chloride 111 mmol/L (98-107); Glucose 96 mg/dL (74-106); Magnesium 1.5 mg/dL (1.8-2.4); PHOSPHORUS 3.7 mg/dL (2.6-4.7); Potassium 3.8 mmol/L (3.5-5.1); Sodium 142 mmol/L (136-145)
[2020-10-27] MEDS: Heparin 500 UNITS/5 ML SYRINGE IV (11:40)
[2020-11-08] MEDS: Normal Saline Flush 10 ML SYR IVP (08:26)
[2020-11-08] MEDS: Heparin 500 UNITS/5 ML SYRINGE IV (08:27)
[2020-11-08] MEDS: IRON SUCROSE COMPLEX 200 MG in Normal Saline 100 ML 440 MG IVPB (08:31)
[2020-11-08 08:41] LABS: HCT 35.2 % (36.0-46.0); HGB 11.2 g/dL (11.2-15.7); MCH 30.9 pg (27.0-33.0); MCHC 31.8 % (32.0-36.0); MCV 97.2 fL (80-95); MPV 10.8 fL (8.0-11.0); Platelet Count 263 10^3/uL (130-400); RBC 3.62 10^6/uL (3.93-5.22); RDW 14.9 % (11.7-14.6); RDW-SD 53.9 fL; WBC 11.51 10^3/uL (4.4-10.8)
[2020-11-08 08:53] LABS: ALT 27 U/L (14-59); AST 25 U/L (15-37); Albumin 2.9 g/dL (3.4-5.0); Alkaline Phosphatase 117 U/L (46-116); Anion Gap 10.9 mmol/L (3-11); BUN 11 mg/dL (7-18); Bilirubin, Direct 0.2 mg/dL (0.0-0.2); Bilirubin, Total 0.4 mg/dL (0.2-1.0); CO2 21.1 mmol/L (21.0-32.0); CREATININE 0.6 mg/dL (0.55-1.02); Calcium 8.5 mg/dL (8.5-10.1); Chloride 108 mmol/L (98-107); Glucose 101 mg/dL (74-106); Magnesium 1.2 mg/dL (1.8-2.4); PHOSPHORUS 4.3 mg/dL (2.6-4.7); Potassium 4.1 mmol/L (3.5-5.1); Sodium 140 mmol/L (136-145); Total Protein 6.9 g/dL (6.4-8.2)
[2020-11-08 17:07] LABS: T4 7.4 ug/mL (4.7-13.3); TSH 7.41 uIU/mL (0.36-3.74)
[2020-11-08 17:50] LABS: Hemoglobin A1C 4.1 % (<5.7)
[2020-11-09 17:09] LABS: T3, Total 83 ng/dL (97-169)
[2020-11-09 20:05] LABS: Copper, Serum 0.58 mcg/mL (0.75-1.45); Zinc, Serum 0.75 mcg/mL (0.66-1.10)
== END 2020-11-22 23:59 | disposition home or self-care (01) ==
LOC: INF 02:45
PROVIDERS: Internal Medicine Gastroenterology; PCP Family Medicine; Visit Provider Family Medicine
DX: E11.9 Type 2 diabetes mellitus without complications (principal); K91.2 Postsurgical malabsorption, not elsewhere classified; E03.9 Hypothyroidism, unspecified; E83.42 Hypomagnesemia; E87.6 Hypokalemia; D64.9 Anemia, unspecified; E43 Unspecified severe protein-calorie malnutrition; E61.0 Copper deficiency
CPT/HCPCS: 36591; 80048; 80076; 85027; 96365; 96366; 82525; 83036; 83735; 84100; 84436; 84443; 84480; 84630; J1756

== ENCOUNTER 2020-12-22 03:10 | Outpatient (RCR) | payer BC, SELFPAY ==
[2020-11-23 00:17] VITALS: BP 125/78; PULSE 78; RESP 18; TEMP 36.5
[2020-11-25] MEDS: Normal Saline Flush 10 ML SYR IVP (08:38)
[2020-11-25] MEDS: Heparin 500 UNITS/5 ML SYRINGE IV (08:38)
[2020-11-25 08:46] LABS: HCT 35.7 % (36.0-46.0); HGB 11.3 g/dL (11.2-15.7); MCHC 31.7 % (32.0-36.0); MCV 97.8 fL (80-95); MPV 10.2 fL (8.0-11.0); Platelet Count 267 10^3/uL (130-400); RBC 3.65 10^6/uL (3.93-5.22); RDW 14.7 % (11.7-14.6); RDW-SD 53.5 fL
[2020-11-25 08:58] LABS: Magnesium 1.4 mg/dL (1.8-2.4)
[2020-11-25 09:18] LABS: ALT 29 U/L (14-59); AST 24 U/L (15-37); Albumin 2.8 g/dL (3.4-5.0); Alkaline Phosphatase 135 U/L (46-116); Anion Gap 10.1 mmol/L (3-11); BUN 8 mg/dL (7-18); Bilirubin, Direct 0.1 mg/dL (0.0-0.2); Bilirubin, Total 0.3 mg/dL (0.2-1.0); CO2 20.9 mmol/L (21.0-32.0); CREATININE 0.6 mg/dL (0.55-1.02); Calcium 8.3 mg/dL (8.5-10.1); Chloride 108 mmol/L (98-107); Glucose 102 mg/dL (74-106); PHOSPHORUS 3.7 mg/dL (2.6-4.7); Sodium 139 mmol/L (136-145); Total Protein 6.8 g/dL (6.4-8.2)
[2020-11-29 14:23] LABS: Copper, Serum 0.66 mcg/mL (0.75-1.45); Zinc, Serum 0.74 mcg/mL (0.66-1.10)
[2020-12-08] MEDS: Normal Saline Flush 10 ML SYR IVP (08:40)
[2020-12-08] MEDS: Heparin 500 UNITS/5 ML SYRINGE IV (08:40)
[2020-12-08 08:59] LABS: Magnesium 1.7 mg/dL (1.8-2.4)
[2020-12-08 09:01] LABS: Anion Gap 8.6 mmol/L (3-11); BUN 10 mg/dL (7-18); CO2 23.4 mmol/L (21.0-32.0); CREATININE 0.7 mg/dL (0.55-1.02); Calcium 8.4 mg/dL (8.5-10.1); Chloride 109 mmol/L (98-107); Glucose 120 mg/dL (74-106); PHOSPHORUS 3.9 mg/dL (2.6-4.7); Potassium 3.9 mmol/L (3.5-5.1); Sodium 141 mmol/L (136-145)
== END 2020-12-22 23:59 | disposition home or self-care (01) ==
LOC: INF 03:10
PROVIDERS: PCP Family Medicine; Visit Provider Family Medicine
DX: E61.0 Copper deficiency (principal); K91.2 Postsurgical malabsorption, not elsewhere classified; E83.42 Hypomagnesemia; E87.6 Hypokalemia; D64.9 Anemia, unspecified; E43 Unspecified severe protein-calorie malnutrition; E61.1 Iron deficiency
CPT/HCPCS: 36591; 80048; 80076; 85027; 96365; 96366; 82525; 83735; 84100; 84630

== ENCOUNTER 2021-01-20 00:54 | Outpatient (RCR) | payer BC, SELFPAY ==
[2020-12-23 00:24] VITALS: BP 125/78; PULSE 78; RESP 18; TEMP 36.5
[2020-12-27] MEDS: Normal Saline Flush 10 ML SYR IVP (07:40)
[2020-12-27] MEDS: Heparin 500 UNITS/5 ML SYRINGE (07:41)
[2020-12-27 07:50] LABS: Abs Immature Grans 0.03 10^3/uL (0.0-0.06); Absolute Eosinophil Count 0.44 10^3/uL (0.0-0.7); Absolute Monocyte Count 0.98 10^3/uL (0.1-0.8); Absolute Neutrophil Count 5.96 10^3/uL (1.2-6.7); Basophils % 1.1; Eosinophils % 4.7; HCT 33.2 % (36.0-46.0); HGB 10.5 g/dL (11.2-15.7); Immature Grans % 0.3; Lymphocytes % 19.3; MCH 31.7 pg (27.0-33.0); MCHC 31.6 % (32.0-36.0); MCV 100.3 fL (80-95); MPV 10.1 fL (8.0-11.0); Monocytes % 10.5; Neutrophils % 64.1; Nucleated RBC 0 %; Platelet Count 271 10^3/uL (130-400); RBC 3.31 10^6/uL (3.93-5.22); RDW 14.5 % (11.7-14.6); RDW-SD 53.7 fL; WBC 9.31 10^3/uL (4.4-10.8)
[2020-12-27 08:07] LABS: ALT 26 U/L (14-59); AST 21 U/L (15-37); Albumin 2.5 g/dL (3.4-5.0); Alkaline Phosphatase 130 U/L (46-116); Anion Gap 9.4 mmol/L (3-11); BUN 12 mg/dL (7-18); Bilirubin, Direct 0.2 mg/dL (0.0-0.2); Bilirubin, Total 0.4 mg/dL (0.2-1.0); CO2 22.6 mmol/L (21.0-32.0); CREATININE 0.6 mg/dL (0.55-1.02); Calcium 8.4 mg/dL (8.5-10.1); Chloride 110 mmol/L (98-107); Glucose 107 mg/dL (74-106); Magnesium 1.7 mg/dL (1.8-2.4); PHOSPHORUS 3.3 mg/dL (2.6-4.7); Potassium 3.6 mmol/L (3.5-5.1); Sodium 142 mmol/L (136-145); Total Protein 6.4 g/dL (6.4-8.2)
[2020-12-28 17:21] LABS: Zinc, Serum 0.66 mcg/mL (0.66-1.10)
[2020-12-28 18:27] LABS: Copper, Serum 0.53 mcg/mL (0.75-1.45)
[2021-01-06] MEDS: Normal Saline Flush 10 ML SYR IVP ×2 (08:13→08:17)
[2021-01-06] MEDS: Heparin 500 UNITS/5 ML SYRINGE IV (08:18)
[2021-01-06 08:44] LABS: BUN 8 mg/dL (7-18); CREATININE 0.6 mg/dL (0.55-1.02); Calcium 8.7 mg/dL (8.5-10.1); Chloride 108 mmol/L (98-107); Glucose 93 mg/dL (74-106); Magnesium 1.6 mg/dL (1.8-2.4); PHOSPHORUS 3.2 mg/dL (2.6-4.7); Sodium 139 mmol/L (136-145)
[2021-01-06] MEDS: IRON SUCROSE COMPLEX 200 MG in Normal Saline 100 ML 440 MG IVPB (10:20)
[2021-01-20] MEDS: Heparin 500 UNITS/5 ML SYRINGE IV (08:10)
[2021-01-20] MEDS: Normal Saline Flush 10 ML SYR IVP (08:10)
[2021-01-20 08:52] LABS: Anion Gap 8.9 mmol/L (3-11); BUN 9 mg/dL (7-18); CO2 26.1 mmol/L (21.0-32.0); CREATININE 0.6 mg/dL (0.55-1.02); Calcium 8.7 mg/dL (8.5-10.1); Chloride 106 mmol/L (98-107); Glucose 84 mg/dL (74-106); Magnesium 1.6 mg/dL (1.8-2.4); PHOSPHORUS 3.6 mg/dL (2.6-4.7); Potassium 3.8 mmol/L (3.5-5.1); Sodium 141 mmol/L (136-145)
== END 2021-01-22 23:59 | disposition home or self-care (01) ==
LOC: INF 00:54
PROVIDERS: PCP Family Medicine; Visit Provider Family Medicine
DX: K91.2 Postsurgical malabsorption, not elsewhere classified (principal); E83.42 Hypomagnesemia; E87.6 Hypokalemia; D64.9 Anemia, unspecified; E43 Unspecified severe protein-calorie malnutrition; E61.0 Copper deficiency; E61.1 Iron deficiency
CPT/HCPCS: 36591; 80048; 80076; 96365; 96366; 82525; 83735; 84100; 84630; 85025; J1756

== ENCOUNTER 2021-02-09 08:00 | Outpatient (RCR) | payer BC, SELFPAY ==
[2021-01-23 00:24] VITALS: BP 125/78; PULSE 78; RESP 18; TEMP 36.5
[2021-02-09] MEDS: Normal Saline Flush 10 ML SYR IVP (08:25)
[2021-02-09] MEDS: Heparin 500 UNITS/5 ML SYRINGE IV (08:25)
[2021-02-09 08:51] LABS: Abs Immature Grans 0.04 10^3/uL (0.0-0.06); Absolute Basophil Count 0.16 10^3/uL (0.0-0.2); Absolute Eosinophil Count 0.42 10^3/uL (0.0-0.7); Absolute Lymphocyte Count 1.98 10^3/uL (1.2-3.4); Basophils % 1.7; Eosinophils % 4.6; HCT 36.3 % (36.0-46.0); HGB 11.6 g/dL (11.2-15.7); Immature Grans % 0.4; Lymphocytes % 21.5; MCH 31.8 pg (27.0-33.0); MCV 99.5 fL (80-95); MPV 10.2 fL (8.0-11.0); Monocytes % 9.8; Nucleated RBC 0 %; Platelet Count 293 10^3/uL (130-400); RBC 3.65 10^6/uL (3.93-5.22); RDW 13.2 % (11.7-14.6); RDW-SD 48.4 fL
[2021-02-09 09:11] LABS: ALT 27 U/L (14-59); AST 21 U/L (15-37); Albumin 2.7 g/dL (3.4-5.0); Alkaline Phosphatase 121 U/L (46-116); Anion Gap 13.3 mmol/L (3-11); BUN 9 mg/dL (7-18); Bilirubin, Direct 0.1 mg/dL (0.0-0.2); Bilirubin, Total 0.3 mg/dL (0.2-1.0); CO2 19.7 mmol/L (21.0-32.0); CREATININE 0.6 mg/dL (0.55-1.02); Calcium 8.3 mg/dL (8.5-10.1); Chloride 108 mmol/L (98-107); FREE T4 0.98 ng/dL (0.76-1.46); Glucose 105 mg/dL (74-106); Magnesium 1.6 mg/dL (1.8-2.4); PHOSPHORUS 3.6 mg/dL (2.6-4.7); Potassium 3.9 mmol/L (3.5-5.1); Sodium 141 mmol/L (136-145); TSH 5.15 uIU/mL (0.36-3.74); Total Protein 6.5 g/dL (6.4-8.2)
[2021-02-09 17:36] LABS: T3, Total 91 ng/dL (97-169)
[2021-02-10 16:00] LABS: Zinc, Serum 0.67 mcg/mL (0.66-1.10)
[2021-02-10 22:01] LABS: Copper, Serum 0.56 mcg/mL (0.75-1.45)
== END 2021-02-21 23:59 | disposition home or self-care (01) ==
LOC: INF 08:00
PROVIDERS: PCP Family Medicine; Visit Provider Family Medicine
DX: E03.9 Hypothyroidism, unspecified (principal); K91.2 Postsurgical malabsorption, not elsewhere classified; E83.42 Hypomagnesemia; E87.6 Hypokalemia; D64.9 Anemia, unspecified; E43 Unspecified severe protein-calorie malnutrition; E61.0 Copper deficiency
CPT/HCPCS: 36591; 80048; 80076; 96365; 96366; 82525; 83735; 84100; 84181; 84439; 84443; 84480; 84630; 85025

== ENCOUNTER 2021-03-16 01:09 | Emergency (ER) | payer BC, SELFPAY ==
[2021-03-16] VITALS (70 sets, daily range): BP systolic 78–105; BP diastolic 46–72; PULSE 79–144; RESP 18–20; TEMP 36.6–37.1; O2SAT 93–100
--- NOTE | 2021-03-16 01:14 | ED.GENADUL_ITS ---
Discharge Plan Disposition Patient Disposition: HOME Condition: Improving Discharge Details Clinical Impression: Fever and chills, Leukocytosis, Pancreatic mass, Abnormal CT scan, lumbar spine Primary Care Provider: Robbie Philippe ED Provider: Jeanne Schuster Home Meds and New Rx's Prescriptions: Continued acetaminophen 500 mg capsule 500 mg PO Q6H PRNRF: 0 colestipol 1 gram tablet 1 gm PO ONCE RF: 0 ergocalciferol (vitamin D2) 1,250 mcg (50,000 unit) capsule 1,250 mcg PO QWEEK RF: 0 Gattex 30-Vial 5 mg kit 3.3 mg SC DAILY RF: 0 ibuprofen 600 mg tablet 600 mg PO Q8H PRNRF: 0 loperamide [Anti-Diarrheal (loperamide)] 2 mg capsule 2 mg PO Q6H PRNRF: 0 potassium chloride 20 mEq tablet extended release 20 meq PO DAILY RF: 0 albuterol sulfate [Ventolin HFA] 90 mcg/actuation HFA aerosol inhaler 2 puff IH Q4H PRNRF: 0 levothyroxine 125 MCG tablet 2 tab PO DAILY AM RF: 0 prochlorperazine maleate 5 MG tablet 1 tab PO DAILY RF: 0 pantoprazole [Protonix] 20 MG tablet,delayed release (DR/EC) 20 mg PO BID RF: 0 multivitamin Tablet 1 tab PO DAILY RF: 0 biotin 1 mg Tablet 1 tab PO DAILY RF: 0 loperamide 2 mg Capsule 8 mg PO Q4H Qty: 0 RF: 0 cyanocobalamin (vitamin B-12) [Vitamin B-12] 500 mcg Tablet 1,000 mcg PO DAILY Qty: 0 RF: 0 magnesium chloride [Mag 64] 64 mg Tablet,Delayed Release (Dr/Ec) 64 mg PO BID Qty: 0 RF: 0 diphenoxylate-atropine [Lomotil] 2.5-0.025 mg Tablet 1 tab PO DAILY PRNRF: 0 levothyroxine 50 mcg Tablet 50 mcg PO DAILY RF: 0 fluticasone propion-salmeterol [Advair Diskus] 250-50 mcg/dose Blister With Device 1 inh INHALATION BID RF: 0 Potassium/Magnesium Suppliment 1 tab PO DAILY RF: 0 cyanocobalamin (vitamin B-12) 1,000 mcg/mL Solution 1,000 mcg IM QMONTH RF: 0 Discharge Instructions Instructions: Fever in Adults (ED), Leukocytosis (ED) Additional Instructions: Your CT scan today noted inflammation versus a mass within your pancreas. It was also noted that you had lucencies (an appear of low density which is usually dark in color) in your lumbar spine which may be an indication of osteopenia. You have been placed on care management list to arrange for an outpatient MRI of your abdomen and pelvis including your spine or an MRCP (magnetic resonance cholangiopancreatography) to be done through your primary care doctor or through [facility] gastroentergology and follow-up for the results with your primary care doctor or [facility] gastroenterology. It is important that you have these tests done within the next 2 weeks. Your white blood cell count was also elevated today. It is important to have a repeat CBC for recheck of your white blood cell count within the next 1 to 2 weeks. Call your primary care doctor's office on Saturday to confirm this CBC blood test and MRI imaging is ordered. Return immediately to the emergency department if you develop any worsening or new concerning symptoms such as persistent fevers or vomiting, pain or any other concerns. Discharge Data Discharge Physician: Jeanne Schuster Medical Decision Making <Silas Hartley MD - Last Filed: 03/16/21 07:46> Patient presenting with fever and chills onset tonight which woke her from sleep. One episode of emesis but no abdominal pain. Denies cough, shortness of breath, chest pain and is vaccinated against Covid and flu. 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 She is tachycardic but does not look toxic. Exam unremarkable. Will place IV and give fluids as well as Tylenol. Check laboratory studies, chest x-ray, urine. Blood cultures obtained due to the fact that patient does have poor but at this point in time has had no issues with, has no pain, no erythema. COVID and flu swabs obtained. Patient feeling better after Tylenol and fluids. Body aches and headache much improved. Laboratory studies significant for white count of 25.7 with mostly neutrophils. Chemistries with some electrolyte abnormalities consistent with her short gut syndrome including potassium 3.4, bicarb 17, magnesium 1.4. We will go ahead and replace her mag. Urine is negative. Flu is negative. Chest x-ray with no pulmonary process but questionable sliver of free air under the left hemidiaphragm. Patient continues to deny abdominal pain. Abdominal exam remains benign. Tachycardia improved but not resolved after 1 L of fluid. Seems very likely that patient has intra-abdominal process but given her multiple surgeries, short gut, anastomosis of the intestine will proceed with CT scan of the abdomen. We will also obtain in-house Covid testing because if positive given her past medical history, asthma, age I would encourage MAB infusion which she has agreed to. Covid negative. Patient continues to feel fine at this point. CT pending as oral contrast given. If unremarkable plan for discharge home and follow up with PCP next week. Return if positive blood cultures or change in status. Medical Records Medical records reviewed: Yes I reviewed the patient's medical records. Lab Data Lab results reviewed: Yes I reviewed the patient's lab results. ECG Data Attestation: I personally reviewed and interpreted this ECG (s) as follows: <Jeanne Schuster DO - Last Filed: 03/16/21 15:58> 0800 --please see Dr. Hartley's note for initial presentation, exam and plan. Case endorsed to follow-up on CT imaging and final disposition. 0930 -- Patient assessed by me at bedside and she denies any acute complaints. Abdomen soft and nontender. CT abdomen and pelvis notes: Impression: No evidence of free air or bowel obstruction. Prior bowel resections. Inflammation versus mass in the head of the pancreas. Nonspecific lucencies in the lumbar spine could represent metastatic disease versus multiple myeloma. Findings could also be artifactual related to osteopenia. No previous CT imaging to compare. Patient is followed by [facility] gastroenterology. Will push images further review and compare. Lipase ordered and 523. 1100 -- CT imaging reviewed with [facility] gastroenterology who compared to their previous CT imaging and this pancreatic mass versus inflammation and lumbar spine lucencies appear new. As patient feels better and is requesting to go home, recommends MRI abdomen and pelvis or MRCP can be done as outpatient within the next 2 weeks. She also may need an endoscopic ultrasound for further evaluation of the pancreatic mass. Discussed the lipase of 523 and notes that pancreatitis is unlikely as she has no abdominal pain and a level of 523 is not 3 times the upper limit of normal which is what you would expect in pancreatitis. Discussed with patient and she continues to endorse that she feels better and would like to go home. Patient placed on care management list to help arrange for outpatient MRI versus MRCP per her PCP and follow-up with PCP or [facility] gastroenterology for results. Patient also advised to have repeat CBC for recheck of her white blood cell count. Discussed that her complaint of fevers and leukocytosis may be related to a viral syndrome and unclear if they are related to her CT findings. A repeat BMP was obtained and noted normalization of her anion gap acidosis. Usual and customary return precautions given prior to discharge. Medical Records Medical records reviewed: Yes I reviewed the patient's medical records. Imaging Data Radiologic Study: Radiologist's impression: CT ABDOMEN PELVIS W CLINICAL HISTORY: fever, vomiting, ? free air on CXR. TECHNIQUE: Imaging Protocol: Axial computed tomography images with coronal and sagittal reformatted images were created and reviewed CONTRAST MATERIAL: Intravenous: Omnipaque 350 Contrast volume:100 ml Oral: Yes COMPARISON: CR XR CHEST 2V PA LATERAL from 05/27/2018 CR,XR XR PORTABLE CHEST AP from 03/16/2021 CR,XR XR PORTABLE CHEST AP from 03/16/2021 FINDINGS: ABDOMEN: Lung Bases: Normal where visualized. No free air beneath the diaphragm. Finding on chest x-ray relates to positioning splenic flexure of the colon directly beneath the diaphragm. Liver: Enlarged, fatty infiltration. No measurable mass. Gallbladder and biliary tract: Status post cholecystectomy. No radiodense calculus or dilation. Pancreas: The head of the pancreas is ill-defined and there is some stranding in the surrounding fat as well as edema of the adjacent descending duodenum. The body and tail are unremarkable. Findings could represent pancreatitis versus mass.. Spleen: Normal. Kidneys: Normal size, contour and axis. No radiodense stones or obstructive uropathy. No masses seen. Adrenal glands: No masses seen. Abdominal Aorta: Abdominal portion non-dilated. Soft tissues: Postsurgical changes in the anterior abdominal wall. PELVIS: Bladder: No gross wall thickening. No calculi.No focal mass. Bowel: There has been previous bowel resections.. The peritoneal cavity: No ascites, collection or mesenteric inflammatory response. Bones: Non-specific areas of lucency seen at L2 and L4. The bones of appear diffusely osteopenic. No fractures. Reproductive organs: hysterectomy. Ovaries not visualized. Lymph nodes: Scattered mildly enlarged lymph nodes along the periaortic region. Impression: No evidence of free air or bowel obstruction. Prior bowel resections. Inflammation versus mass in the head of the pancreas. Nonspecific lucencies in the lumbar spine could represent metastatic disease faith pacheco multiple myeloma. Findings could also be artifactual related to osteopenia. Lab Data Lab results reviewed: Yes I reviewed the patient's lab results. Labs: 03/16/21 02:37 Nasopharynx Influenza Types A,B Antigen - Final 03/16/21 02:37 Blood Blood Culture - Pending 03/16/21 02:25 Blood Blood Culture - Pending Laboratory Tests Range/Units 03/16/21 03/16/21 03/16/21 01:30 02:25 02:25 WBC (4.4-10.8) 10^3/uL 25.67 H* RBC (3.93-5.22) 10^6/uL 3.55 L Hgb (11.2-15.7) g/dL 11.2 Hct (36.0-46.0) % 34.2 L MCV (80-95) fL 96.3 H MCH (27.0-33.0) pg 31.5 MCHC (32.0-36.0) % 32.7 RDW (11.7-14.6) % 13.8 Plt Count (130-400) 10^3/uL 392 MPV (8.0-11.0) fL 9.9 Immature Gran % 0.7 Neutrophils % 90.9 Lymphocytes % 2.2 Monocytes % 5.5 Eosinophils % 0.3 Basophils % 0.4 Nucleated RBC % % 0 Absolute Neutrophils (1.2-6.7) 10^3/uL 23.33 H Absolute Lymphocytes (1.2-3.4) 10^3/uL 0.56 L Absolute Monocytes (0.1-0.8) 10^3/uL 1.41 H Absolute Eosinophils (0.0-0.7) 10^3/uL 0.08 Absolute Basophils (0.0-0.2) 10^3/uL 0.10 RBC Morphology Normal Sodium (136-145) mmol/L 136 Potassium (3.5-5.1) mmol/L 3.4 L Chloride (98-107) mmol/L 104 Carbon Dioxide (21.0-32.0) mmol/L 16.9 L Anion Gap (3-11) mmol/L 15.1 H BUN (7-18) mg/dL 5 L Creatinine (0.55-1.02) mg/dL 0.9 Estimated GFR/1.73 m2 (mL/min/1.73m2) >= 60.00 Glucose (74-106) mg/dL 110 H Calcium (8.5-10.1) mg/dL 8.4 L Magnesium (1.8-2.4) mg/dL 1.4 L Total Bilirubin (0.2-1.0) mg/dL 0.5 AST (15-37) U/L 23 ALT (14-59) U/L 22 Alkaline Phosphatase (46-116) U/L 131 H Total Protein (6.4-8.2) g/dL 7.2 Albumin (3.4-5.0) g/dL 2.7 L Lipase (73-393) U/L Urine Color (Yellow) Yellow Urine Clarity (Clear) Sl Cloudy Urine pH (5-8) 5.5 Ur Specific [place] (1.005-1.025) 1.015 Urine Protein (Negative) mg/dL Negative Urine Ketones (Negative) mg/dL Negative Urine Blood (Negative) Negative Urine Nitrite (Negative) Negative Urine Bilirubin (Negative) Negative Urine Urobilinogen (Up TO 0.2) EU/dL 0.2 Ur Leukocyte Esterase (Negative) Negative Urine Glucose (Negative) mg/dL Negative COVID-19 Source SARS-CoV-2 (PCR) (Negative) Range/Units 03/16/21 03/16/21 02:25 04:20 WBC (4.4-10.8) 10^3/uL RBC (3.93-5.22) 10^6/uL Hgb (11.2-15.7) g/dL Hct (36.0-46.0) % MCV (80-95) fL MCH (27.0-33.0) pg MCHC (32.0-36.0) % RDW (11.7-14.6) % Plt Count (130-400) 10^3/uL MPV (8.0-11.0) fL Immature Gran % Neutrophils % Lymphocytes % Monocytes % Eosinophils % Basophils % Nucleated RBC % % Absolute Neutrophils (1.2-6.7) 10^3/uL Absolute Lymphocytes (1.2-3.4) 10^3/uL Absolute Monocytes (0.1-0.8) 10^3/uL Absolute Eosinophils (0.0-0.7) 10^3/uL Absolute Basophils (0.0-0.2) 10^3/uL RBC Morphology Sodium (136-145) mmol/L Potassium (3.5-5.1) mmol/L Chloride (98-107) mmol/L Carbon Dioxide (21.0-32.0) mmol/L Anion Gap (3-11) mmol/L BUN (7-18) mg/dL Creatinine (0.55-1.02) mg/dL Estimated GFR/1.73 m2 (mL/min/1.73m2) Glucose (74-106) mg/dL Calcium (8.5-10.1) mg/dL Magnesium (1.8-2.4) mg/dL Total Bilirubin (0.2-1.0) mg/dL AST (15-37) U/L ALT (14-59) U/L Alkaline Phosphatase (46-116) U/L Total Protein (6.4-8.2) g/dL Albumin (3.4-5.0) g/dL Lipase (73-393) U/L 523 H Urine Color (Yellow) Urine Clarity (Clear) Urine pH (5-8) Ur Specific [place] (1.005-1.025) Urine Protein (Negative) mg/dL Urine Ketones (Negative) mg/dL Urine Blood (Negative) Urine Nitrite (Negative) Urine Bilirubin (Negative) Urine Urobilinogen (Up TO 0.2) EU/dL Ur Leukocyte Esterase (Negative) Urine Glucose (Negative) mg/dL COVID-19 Source Nasal/Nares SARS-CoV-2 (PCR) (Negative) Negative HPI <Silas Hartley MD - Last Filed: 03/16/21 07:46> General Mode of arrival: ambulatory . Date/Time Provider Initiated Documentation: 03/16/21 01:14 . Limitations to Documentation: no limitations . Information obtained by: patient, RN notes reviewed and old records reviewed . HPI Narrative: Patient presents to ED with fever and chills. Patient felt fine when she went to bed this evening. Awoke with shaking chills and subsequently spiked a fever to about 103. She did take some Tylenol but had an episode of emesis shortly thereafter. She denies any abdominal pain. She has a loose bowel movement but has short gut syndrome and is was not abnormal for her. She has headache and diffuse body aches. She has no cough, shortness of breath, chest pain. She does have a port which was last accessed 2 weeks ago. She has no pain in this area. She has no urinary symptoms. She is vaccinated against Covid with all three shots as well as influenza for this year. Related Data Home Medications Medication Instructions Recorded Confirmed levothyroxine 2 tab PO DAILY AM 03/04/17 03/16/21 pantoprazole [Protonix] 20 mg PO BID 11/04/17 03/16/21 prochlorperazine maleate 1 tab PO DAILY 11/04/17 03/16/21 biotin 1 tab PO DAILY 05/27/18 03/16/21 multivitamin 1 tab PO DAILY 05/27/18 03/16/21 cyanocobalamin (vitamin B-12) 1,000 mcg PO DAILY #0 tab 05/28/18 03/16/21 [Vitamin B-12] loperamide 8 mg PO Q4H #0 cap 05/28/18 03/16/21 magnesium chloride [Mag 64] 64 mg PO BID #0 tab 05/28/18 03/16/21 Potassium/Magnesium Suppliment 1 tab PO DAILY 11/06/18 03/16/21 cyanocobalamin (vitamin B-12) 1,000 mcg IM QMONTH 11/06/18 03/16/21 diphenoxylate-atropine [Lomotil] 1 tab PO DAILY PRN 11/06/18 03/16/21 fluticasone propion-salmeterol 1 inh INHALATION BID 11/06/18 03/16/21 [Advair Diskus] levothyroxine 50 mcg PO DAILY 11/06/18 03/16/21 acetaminophen 500 mg capsule 500 mg PO Q6H PRN 11/27/19 03/16/21 albuterol sulfate 90 mcg/actuation 2 puff IH Q4H PRN gm 11/27/19 03/16/21 aerosol inhaler colestipol 1 gram tablet 1 gm PO ONCE 11/27/19 03/16/21 ergocalciferol (vitamin D2) 1,250 1,250 mcg PO QWEEK 11/27/19 03/16/21 mcg (50,000 unit) capsule ibuprofen 600 mg tablet 600 mg PO Q8H PRN 11/27/19 03/16/21 loperamide 2 mg capsule 2 mg PO Q6H PRN 11/27/19 03/16/21 potassium chloride 20 mEq 20 meq PO DAILY 11/27/19 03/16/21 tablet,extended release teduglutide 5 mg subcutaneous kit 3.3 mg SC DAILY 11/27/19 03/16/21 Previous Rx's Medication Instructions Recorded cyanocobalamin (vitamin B-12) 1,000 mcg PO DAILY #0 tab 05/28/18 [Vitamin B-12] loperamide 8 mg PO Q4H #0 cap 05/28/18 magnesium chloride [Mag 64] 64 mg PO BID #0 tab 05/28/18 Allergies Allergy/AdvReac Type Severity Reaction Status Date / Time amoxicillin Allergy Severe anaphylasis Verified 03/16/21 01:22 exenatide [From [place]] AdvReac Severe Nausea Verified 03/16/21 01:22 adhesive tape AdvReac Skin Rash Verified 03/16/21 01:22 codeine AdvReac Nausea Verified 03/16/21 01:22 morphine AdvReac Nausea Verified 03/16/21 01:22 General COURTNEY: 4 Review of Systems <Silas Hartley MD - Last Filed: 03/16/21 07:46> Narrative: 01/05 Review of Systems completed and is negative except as stated above in HPI (Systems reviewed: Const, Eyes, ENT, Resp, CV, GI, , MSK, Skin, Neuro) PFSH <Silas Hartley MD - Last Filed: 03/16/21 07:46> All Active Problems (Updated 03/16/21 @ 10:36 by Jeanne Schuster DO) Fever and chills (Acute) Leukocytosis (Acute) Pancreatic mass (Acute) Abnormal CT scan, lumbar spine (Acute) Neutropenic fever (Acute) Anemia (Acute) Short gut syndrome (Chronic) Lactic acidosis (Acute) Hypomagnesemia (Acute) Pharyngitis (Acute) Diabetes (Chronic) Pt. denies having this: I lost 200lbs and it went away Medical History (Updated 03/16/21 @ 10:36 by Jeanne Schuster DO) Cardiac murmur LSB-HOLOSYSTOLIC grade II/ As per PCP note 01/10/15 Hx of blood clots Pt. states she had a blood clot in her neck 2013 Hypothyroid Intestinal volvulus Short gut syndrome Surgical History (Updated 03/16/21 @ 01:49 by Silas Hartley MD) History of hysterectomy FOR OVARIAN TUMOR W/BILAT OOPHORECTOMY W/UTERUS REMOVED BUT CERVIX REMAINS Incarcerated hernia s/p bowel resection S/P cholecystectomy Tibial plateau fracture (10/30/18) s/p ORIF on 11/10/2018 Family History Other Cancer Diabetes Heart disease Social History Smoking/Tobacco Use Status: Never Smoking risk assessment performed?: Yes Alcohol Intake: never Drug use: Never Substance use type: does not use Current gender identity: female Do you feel safe at home: Yes Do you feel safe in your relationship?: Yes Exam <Silas Hartley MD - Last Filed: 03/16/21 07:46> Narrative Exam Narrative: Const: WDWN female in NAD. HEENT: NC/AT. Normal facial exam. Eyes: Normal conjunctiva and sclera. Neck: Supple. Trachea midline. Lungs: Normal respiratory effort. Lungs are clear. Cor: Tachy. RRR without murmur/gallop. Good radial pulses. GI: Soft. NT/ND. No guarding or rebound. Back: No CVAT Neuro: A+O x 3. Normal speech, mentation, gait. Cranial nerves II - XII pepe sly intact. No gross motor or sensory deficit. Ext: No C/C/E. Skin: Warm and dry without rash. Sign Out <Silas Hartley MD - Last Filed: 03/16/21 07:46> Sign Out Data: Sign Out Comment: CT abdomen pending, home if no acute pathology Last updated by Silas Hartley MD at 03/16/21 08:21
--- NOTE | 2021-03-16 01:30 | DI.RAD_ITS ---
Exam(s) XR PORTABLE CHEST AP EXAM: XR PORTABLE CHEST AP CLINICAL HISTORY: fever TECHNIQUE: 2D digital imaging was performed. COMPARISON: CR XR CHEST 2V PA LATERAL from 05/27/2018 FINDINGS: The heart size is normal. There is a port over the left chest with the tip in the SVC lungs appear c lear. No infiltrate, effusion or mass is seen. The splenic fracture flexure of the colon is again n oted to be positioned beneath the left diaphragm. IMPRESSION: No acute pulmonary findings. DATA REPOSITORY: RADIATION DOSE DELIVERED:
--- NOTE | 2021-03-16 01:30 | RT.EKG_ITS ---
APPROVED REPORT Exam: Resting ECG Reason for Exam: tachycardia Patient Location: E HR:125 bpm ECG Measurements Heart Rate 125 AXIS MD 140 P 64 QRSd 69 QRS 112 QT 303 T 3 QTc 437 Conclusion Sinus tachycardia...rate> 99 Probable left atrial enlargement...P >50mS, <-0.10mV V1 Low voltage with right axis deviation...low voltage, RAD ST depression lateral precordial leads likely rate related.
[2021-03-16] MEDS: Normal Saline 1,000 ML 1000 ML IV (02:00)
[2021-03-16 02:42] LABS: Abs Immature Grans 0.18 10^3/uL (0.0-0.06); Absolute Monocyte Count 1.41 10^3/uL (0.1-0.8); Basophils % 0.4; Eosinophils % 0.3; HCT 34.2 % (36.0-46.0); HGB 11.2 g/dL (11.2-15.7); Immature Grans % 0.7; Lymphocytes % 2.2; MCH 31.5 pg (27.0-33.0); MCHC 32.7 % (32.0-36.0); MCV 96.3 fL (80-95); MPV 9.9 fL (8.0-11.0); Monocytes % 5.5; Neutrophils % 90.9; Nucleated RBC 0 %; Platelet Count 392 10^3/uL (130-400); RBC 3.55 10^6/uL (3.93-5.22); RDW 13.8 % (11.7-14.6); RDW-SD 49.1 fL
[2021-03-16 02:45] LABS: Absolute Eosinophil Count 0.08 10^3/uL (0.0-0.7); Absolute Lymphocyte Count 0.56 10^3/uL (1.2-3.4); Absolute Neutrophil Count 23.33 10^3/uL (1.2-6.7)
[2021-03-16] MEDS: Acetaminophen 500 MG TAB 1000 MG PO (02:45)
[2021-03-16 02:49] LABS: WBC 25.67 10^3/uL (4.4-10.8)
[2021-03-16] MEDS: Prochlorperazine 10 MG/2 ML VIAL 5 MG IVP (02:51)
[2021-03-16 02:57] LABS: ALT 22 U/L (14-59); AST 23 U/L (15-37); Albumin 2.7 g/dL (3.4-5.0); Alkaline Phosphatase 131 U/L (46-116); Anion Gap 15.1 mmol/L (3-11); BUN 5 mg/dL (7-18); Bilirubin, Total 0.5 mg/dL (0.2-1.0); CO2 16.9 mmol/L (21.0-32.0); CREATININE 0.9 mg/dL (0.55-1.02); Calcium 8.4 mg/dL (8.5-10.1); Chloride 104 mmol/L (98-107); Glucose 110 mg/dL (74-106); Magnesium 1.4 mg/dL (1.8-2.4); Potassium 3.4 mmol/L (3.5-5.1); Sodium 136 mmol/L (136-145); Total Protein 7.2 g/dL (6.4-8.2)
[2021-03-16 03:10] LABS: Bilirubin Negative (Negative); Blood Negative (Negative); Clarity Sl Cloudy (Clear); Glucose Negative (Negative); Ketones Negative (Negative); Leukocyte Esterase Negative (Negative); Nitrite Negative (Negative); Specific Gravity 1.015 (1.005-1.025); Urobilinogen 0.2 EU/dL (Up TO 0.2); pH 5.5 (5-8)
[2021-03-16 03:16] LABS: Diff Comment Agrees w/ Instrument; RBC Morphology Normal
--- NOTE | 2021-03-16 03:43 | DI.VRAD_ITS ---
PROCEDURE INFORMATION: Exam: XR Chest Exam date and time: 03/16/2021 1:39 AM Age: 55 years old Clinical indication: Other: Fever TECHNIQUE: Imaging protocol: XR of the chest. Views: 1 view. COMPARISON: CR XR CHEST 2V PA LATERAL 05/27/2018 12:48 PM FINDINGS: Tubes, catheters and devices: Superior left chest wall subcutaneous medication port with distal tip projecting over the lower SVC. Lungs: Lungs are adequately inflated and symmetric. No focal consolidation or pulmonary edema. Pleural spaces: No pleural effusion. No pneumothorax. Heart/Mediastinum: Cardiomediastinal contours within normal limits. Diaphragm: Thin curvilinear lucency projects underneath the lateral left hemidiaphragm adjacent to the splenic flexure, suspect air within the splenic flexure but indeterminate. Bones/joints: No acute osseous finding. IMPRESSION: 1. No focal consolidation. 2. Thin curvilinear lucency projecting under the lateral left hemidiaphragm suspected to represent air within the adjacent splenic flexure but indeterminate. If patient has abdominal symptoms, recommend dedicated upright imaging of the abdomen to evaluate for free air. Dictated and Authenticated by: Mulugeta Lopez MD. Ordering:DONNY Rosen MD
[2021-03-16] MEDS: MAGNESIUM SULFATE 2 GM/50 ML BAG IVPB (03:59)
[2021-03-16] MEDS: Lactated Ringers 1,000 ML 1000 ML IV (04:00)
--- NOTE | 2021-03-16 04:15 | DI.CT_ITS ---
Exam(s) CT ABDOMEN PELVIS W EXAM: CT ABDOMEN PELVIS W CLINICAL HISTORY: fever, vomiting, ? free air on CXR. TECHNIQUE: Imaging Protocol: Axial computed tomography images with coronal and sagittal reformatted images were created and reviewed CONTRAST MATERIAL: Intravenous: Omnipaque 350 Contrast volume:100 ml Oral: Yes COMPARISON: CR XR CHEST 2V PA LATERAL from 05/27/2018 CR,XR XR PORTABLE CHEST AP from 03/16/2021 CR,XR XR PORTABLE CHEST AP from 03/16/2021 FINDINGS: ABDOMEN: Lung Bases: Normal where visualized. No free air beneath the diaphragm. Finding on chest x-ray rela alli to positioning splenic flexure of the colon directly beneath the diaphragm. Liver: Enlarged, fatty infiltration. No measurable mass. Gallbladder and biliary tract: Status post cholecystectomy. No radiodense calculus or dilation. Pancreas: The head of the pancreas is ill-defined and there is some stranding in the surrounding fat as well as edema of the adjacent descending duodenum. The body and tail are unremarkable. Findings could represent pancreatitis versus mass.. Spleen: Normal. Kidneys: Normal size, contour and axis. No radiodense stones or obstructive uropathy. No masses seen. Adrenal glands: No masses seen. Abdominal Aorta: Abdominal portion non-dilated. Soft tissues: Postsurgical changes in the anterior abdominal wall. PELVIS: Bladder: No gross wall thickening. No calculi.No focal mass. Bowel: There has been previous bowel resections.. The peritoneal cavity: No ascites, collection or m esenteric inflammatory response. Bones: Non-specific areas of lucency seen at L2 and L4. The bones of appear diffusely osteopenic. No fractures. Reproductive organs: hysterectomy. Ovaries not visualized. Lymph nodes: Scattered mildly enlarged lymph nodes along the periaortic region. Impression: No evidence of free air or bowel obstruction. Prior bowel resections. Inflammation versus mass in the head of the pancreas. Nonspecific lucencies in the lumbar spine could represent metastatic disease versus multiple myeloma. Findings could also be artifactual related to osteopenia. Findings discussed with Dr. Leslie Rodriguez of the emergency department. RADIATION DOSE DELIVERED: 765.17mGy.cm Total DLP DATA REPOSITORY: All CT scans at this facility are submitted to the National Radiology Data Registry (NRDR) Dose Index Registry (DIR) with the [employer] (ACR). RADIATION OPTIMIZATION: All CT scans at this facility use at least one of these dose optimization te chniques: automated exposure control; mA and/or kV adjustment per patient size (includes targeted exa ms where dose is matched to clinical indication); or iterative reconstruction.
[2021-03-16 04:29] LABS: Source Nasal/Nares
[2021-03-16 05:05] LABS: COVID-19 PCR Negative (Negative)
[2021-03-16] MEDS: Loperamide 2 MG CAP 8 MG PO (05:36)
[2021-03-16] MEDS: Omnipaque 350 MG/ML 100 ML BTL IJ (07:56)
[2021-03-16 09:29] LABS: Lipase 523 U/L (73-393)
--- NOTE | 2021-03-16 10:37 | NUR.NOTE ---
Referral per Dr. Schuster for CBC lab order and MRI-Abd/pelvis or MRCP through the PCP-Dr. Philippe. Put referral in the Merchandise Coordinator's Box. due to a pancreatic mass and lumbar spine lucencies
[2021-03-16 11:23] LABS: Anion Gap 8.6 mmol/L (3-11); BUN 8 mg/dL (7-18); CO2 22.4 mmol/L (21.0-32.0); CREATININE 0.6 mg/dL (0.55-1.02); Chloride 105 mmol/L (98-107); Glucose 84 mg/dL (74-106); Potassium 3.4 mmol/L (3.5-5.1); Sodium 136 mmol/L (136-145)
[2021-03-16] MEDS: Heparin 500 UNITS/5 ML SYRINGE (11:24)
--- NOTE | 2021-03-16 15:18 | PDOC.ERCMACT ---
- If Service Date Differs Date of service: 03/16/21 Time of Service: 15:18 Care Management Activity Note Lacie is seen in the ED for a fever and leukocytosis. At the request of ED provider, ROSAMARIA telephones Lacie's PCP's office ([facility], tel. [phone]) to request they contact Lacie to schedule a follow up appointment next week and order an MRI or MRCP. ROSAMARIA also forwards ED provider's note via fax ([phone]) to their office.
== END 2021-03-16 11:26 | disposition home or self-care (01) ==
PROVIDERS: Emergency Medicine; Emergency Provider Physician Assistant; PCP Family Medicine
DX: R50.9 Fever, unspecified (principal); D72.829 Elevated white blood cell count, unspecified; K86.89 Other specified diseases of pancreas; R93.7 Abnormal findings on diagnostic imaging of other parts of musculoskeletal system; R00.0 Tachycardia, unspecified; K90.9 Intestinal malabsorption, unspecified; Z20.822 Contact with and (suspected) exposure to COVID-19; R11.10 Vomiting, unspecified
CPT/HCPCS: 36415; 80048; 80053; 83690; 87040; 87449; 87635; 93005; 96361; 96365; 96366; 96375; 99285; U0003; 71045; 74177; 81003; 83735; 85025; 93010; J0780; J3490

== ENCOUNTER 2021-03-23 02:46 | Outpatient (RCR) | payer BC, SELFPAY ==
[2021-02-22 00:08] VITALS: BP 125/78; PULSE 78; RESP 18; TEMP 36.5
[2021-03-03] MEDS: Normal Saline Flush 10 ML SYR IVP (08:28)
[2021-03-03] MEDS: Heparin 500 UNITS/5 ML SYRINGE IV (08:28)
[2021-03-03 08:31] LABS: Anion Gap 11.3 mmol/L (3-11); BUN 11 mg/dL (7-18); CO2 20.7 mmol/L (21.0-32.0); CREATININE 0.6 mg/dL (0.55-1.02); Calcium 8.3 mg/dL (8.5-10.1); Chloride 106 mmol/L (98-107); Glucose 104 mg/dL (74-106); Magnesium 1.7 mg/dL (1.8-2.4); PHOSPHORUS 3.5 mg/dL (2.6-4.7); Potassium 4.3 mmol/L (3.5-5.1); Sodium 138 mmol/L (136-145)
[2021-03-23] MEDS: Normal Saline Flush 10 ML SYR IVP ×2 (08:16→10:44)
[2021-03-23] MEDS: Heparin 500 UNITS/5 ML SYRINGE IV (08:16)
[2021-03-23 08:37] LABS: HCT 31.4 % (36.0-46.0); HGB 10.2 g/dL (11.2-15.7); MCH 31.5 pg (27.0-33.0); MCHC 32.5 % (32.0-36.0); MCV 96.9 fL (80-95); MPV 9.7 fL (8.0-11.0); Platelet Count 369 10^3/uL (130-400); RBC 3.24 10^6/uL (3.93-5.22); RDW 14.6 % (11.7-14.6); WBC 9.76 10^3/uL (4.4-10.8)
[2021-03-23 08:57] LABS: ALT 16 U/L (14-59); AST 17 U/L (15-37); Albumin 2.3 g/dL (3.4-5.0); Alkaline Phosphatase 130 U/L (46-116); Anion Gap 9.6 mmol/L (3-11); BUN 13 mg/dL (7-18); Bilirubin, Direct 0.3 mg/dL (0.0-0.2); Bilirubin, Total 0.5 mg/dL (0.2-1.0); CO2 21.4 mmol/L (21.0-32.0); CREATININE 0.6 mg/dL (0.55-1.02); Calcium 7.6 mg/dL (8.5-10.1); Chloride 107 mmol/L (98-107); Glucose 105 mg/dL (74-106); Magnesium 1.4 mg/dL (1.8-2.4); PHOSPHORUS 2.3 mg/dL (2.6-4.7); Potassium 3.4 mmol/L (3.5-5.1); Sodium 138 mmol/L (136-145); Total Protein 6.5 g/dL (6.4-8.2)
[2021-03-23] MEDS: IRON SUCROSE COMPLEX 200 MG in Normal Saline 100 ML 440 MG IVPB (10:43)
[2021-03-23 12:13] LABS: Vitamin D 25 Total < 5 ng/mL (30-100)
[2021-03-27 17:00] LABS: Zinc, Serum 0.53 mcg/mL (0.66-1.10)
[2021-03-27 23:02] LABS: Copper, Serum 0.58 mcg/mL (0.75-1.45)
== END 2021-03-24 23:59 | disposition home or self-care (01) ==
LOC: INF 02:46
PROVIDERS: Internal Medicine Gastroenterology; PCP Family Medicine; Visit Provider Family Medicine
DX: E55.9 Vitamin D deficiency, unspecified (principal); M81.0 Age-related osteoporosis without current pathological fracture; Z45.2 Encounter for adjustment and management of vascular access device; K91.2 Postsurgical malabsorption, not elsewhere classified; E83.42 Hypomagnesemia; E87.6 Hypokalemia; D64.9 Anemia, unspecified; E43 Unspecified severe protein-calorie malnutrition; E61.0 Copper deficiency
CPT/HCPCS: 36591; 80048; 80076; 82306; 85027; 96365; 96366; 82525; 83735; 84100; 84630; J1756

== ENCOUNTER → 2021-04-11 00:48 | Outpatient (CLI) | payer BC, SELFPAY ==
--- NOTE | 2021-04-11 | DI.MRI_ITS ---
Exam(s) MR ABDOMEN WO/W EXAM: MR ABDOMEN WO/W CLINICAL HISTORY: MASS OF PANCREAS, K86.89 TECHNIQUE: Multiplanar multisequence MRI was performed with both pre and post contrast infused seque nces. Contrast injected sequences were performed following IV injection of 11 cc of Dotarem. COMPARISON: CT CT ABDOMEN PELVIS W from 03/16/2021 FINDINGS: VISUALIZED LUNG BASES: No pleural effusions evident. There is prominent artifact over the anterior abdomen, this of questionable etiology. This prevents visualization the area of clinical concern which is pancreatic head region. LIVER: There is significant signal loss in liver on out of phase sequence consistent with diffuse sadie atosis. There is no discrete focal hepatic lesion identified. BILIARY: The gallbladder surgically absent. The CBD is not dilated. PANCREAS: Pancreas is not adequately seen due to the severe artifact here. The pancreatic tail and p art of the body are seen and appear unremarkable. The pancreatic head, uncinate process, neck are no t able to be evaluated on this study. His Serrano SPLEEN: Spleen is not enlarged and there are no intrasplenic lesions.Splenic and portal veins are pat ent ADRENALS: There are no significant adrenal masses. KIDNEYS: No solid renal masses. No hydronephrosis.There are few tiny cyst benign cysts in the left k idney. ABDOMINAL AORTA: Not enlarged and there is no significant para-aortic adenopathy. ANTERIOR ABDOMINAL WALL/GI: Large artifact midline and slightly right of midlineis no evidence of obv ious bowel obstruction. OSSEOUS: There are no lytic osseous lesions in the field of view of this study. IMPRESSION: 1. There is prominent artifact midline prevented visualization of the pancreatic head, uncinate proce ss, pancreatic neck, and part of the pancreatic body. Correlation with any interval instrumentation since the CT scan of 03/16/2021 is recommended (as the cause for this artifact). 2. Hepatic steatosis. No discrete focal hepatic lesions. No splenomegaly. DATA REPOSITORY:
--- NOTE | 2021-04-11 | DI.MRI_ITS ---
Exam(s) MR LUMBAR SPINE WO/W EXAM: MR LUMBAR SPINE WO/W CLINICAL HISTORY: LESION OF LUMBAR SPINE, M99.9. TECHNIQUE: Multiplanar multisequence MRI of the Lumbar spine was performed. Pre and post contrast fe w sequences were performed. Contrast injected was 11 cc Dotarem COMPARISON: CT CT ABDOMEN PELVIS W from 03/16/2021 FINDINGS: Conus medullaris is at normal level. There is no evidence of conus mass nor subjacent clumping of in trathecal nerve roots to suggest arachnoiditis. The distal thecal sac appears unremarkable.There is no evidence of Tarlov intrasacral cysts nor other significant findings within the sacral canal Bones:There are no fractures nor ominous osseous lesions in the lumbar vertebral bodies and visualize d sacrum. There is a benign intraosseous hemangioma in the posterior right side of L2 vertebral body correspond to what was described on CT scan 03/16/2021. There are Schmorl's node invagination in th e inferior endplate of L3 which corresponds to what was also described on prior CT scan. No signific ant bone findings in L4 nor within the other vertebral bodies. With respect to the individual levels... T12-L1: Unremarkable L1-2: Normal disc height and signal. No disc herniation nor central canal stenosis.No foraminal steno sis L2-3: Mild decreased disc height and signal. Annular bulging is noted lateral right but no prominent disc herniation.No central canal stenosis. No significant foraminal stenosis.No facet arthropathy. L3-4: Decreased disc height. Broad relatively symmetrical annular bulging. This flattens the anteri or aspect of thecal sac. Central canal dimensions are lower normal.No prominent foraminal stenosis.S ome degenerative changes noted in the left facet joint; less so on the right side. L4-5: Relatively preserved disc height and signal. However, there is mild degenerative anterolisthes is L4 upon L5 due to facet arthropathy. There is a small tear in the posterior annulus but without a prominent disc herniation. Mild-moderate central canal stenosis noted. There is no significant for aminal stenosis on either side. L5-S1: Normal disc height and signal. No disc herniation. No canal stenosis. No foraminal stenosis . No facet arthropathy. Soft tissues: paraspinal soft tissues appear unremarkable. IMPRESSION: 1. No evidence of osseous metastatic disease (as per request). Finding in the L2 vertebral body is a small benign intraosseous hemangioma. Schmorl's node invagination in the inferior endplate of L3 is what was probably described in the upper L4 on prior CT scan. There is no evidence of metastatic os seous disease in either of these vertebral bodies nor elsewhere in the lumbosacral spinal column. 2. Some degenerative disc disease as described individually above. No dominant disc herniation. 3. Mild-moderate central canal stenosis is noted at L4-5 level, this associated with mild degenerativ e anterolisthesis of L4 upon L5. DATA REPOSITORY:
[2021-04-11] MEDS: Gadoterate meglumine 20 ML VIAL IVP (11:23)
== END ==
PROVIDERS: PCP Family Medicine; Visit Provider Family Medicine
DX: K86.89 Other specified diseases of pancreas (principal); M89.8X8 Other specified disorders of bone, other site; M47.816 Spondylosis without myelopathy or radiculopathy, lumbar region
CPT/HCPCS: 72158; 74183

== ENCOUNTER 2021-04-14 01:17 | Outpatient (RCR) | payer BC, SELFPAY ==
[2021-03-25 00:05] VITALS: BP 125/78; PULSE 78; RESP 18; TEMP 36.5
[2021-04-14] MEDS: Normal Saline Flush 10 ML SYR IVP (08:12)
[2021-04-14 08:40] LABS: HCT 34.6 % (36.0-46.0); HGB 11.3 g/dL (11.2-15.7); MCH 31.7 pg (27.0-33.0); MCHC 32.7 % (32.0-36.0); MCV 96.9 fL (80-95); MPV 10.6 fL (8.0-11.0); Platelet Count 309 10^3/uL (130-400); RBC 3.57 10^6/uL (3.93-5.22); RDW 14.8 % (11.7-14.6); RDW-SD 53.5 fL; WBC 10.28 10^3/uL (4.4-10.8)
[2021-04-14 09:04] LABS: ALT 43 U/L (14-59); AST 35 U/L (15-37); Albumin 2.5 g/dL (3.4-5.0); Alkaline Phosphatase 133 U/L (46-116); Anion Gap 15.7 mmol/L (3-11); BUN 6 mg/dL (7-18); Bilirubin, Direct 0.2 mg/dL (0.0-0.2); Bilirubin, Total 0.3 mg/dL (0.2-1.0); CO2 13.3 mmol/L (21.0-32.0); CREATININE 0.7 mg/dL (0.55-1.02); Calcium 7.7 mg/dL (8.5-10.1); Chloride 110 mmol/L (98-107); FREE T4 0.87 ng/dL (0.76-1.46); Glucose 97 mg/dL (74-106); Magnesium 0.9 mg/dL (1.8-2.4); PHOSPHORUS < 2.0 mg/dL (2.6-4.7); Potassium 3.1 mmol/L (3.5-5.1); Sodium 139 mmol/L (136-145); TSH 8.04 uIU/mL (0.36-3.74); Total Protein 6.8 g/dL (6.4-8.2)
[2021-04-14] MEDS: Heparin 500 UNITS/5 ML SYRINGE (10:27)
[2021-04-14 17:28] LABS: T3, Total 76 ng/dL (97-169)
[2021-04-15 18:02] LABS: Copper, Serum 0.51 mcg/mL (0.75-1.45); Zinc, Serum 0.78 mcg/mL (0.66-1.10)
[2021-04-17 05:27] LABS: Vitamin D 25 Total 5.1 ng/mL (30-100)
== END 2021-04-24 23:59 | disposition home or self-care (01) ==
LOC: INF 01:17
PROVIDERS: PCP Family Medicine; Visit Provider Family Medicine
DX: J45.40 Moderate persistent asthma, uncomplicated (principal); E03.9 Hypothyroidism, unspecified; M54.50 Low back pain, unspecified; E55.9 Vitamin D deficiency, unspecified; H00.015 Hordeolum externum left lower eyelid; F40.240 Claustrophobia; K91.2 Postsurgical malabsorption, not elsewhere classified; E87.6 Hypokalemia; E83.42 Hypomagnesemia; D64.9 Anemia, unspecified; E43 Unspecified severe protein-calorie malnutrition; E61.0 Copper deficiency
CPT/HCPCS: 36591; 80048; 80076; 82306; 85027; 96365; 96366; 82525; 83735; 84100; 84439; 84443; 84480; 84630

== ENCOUNTER 2021-05-04 02:27 | Outpatient (RCR) | payer BC, SELFPAY ==
[2021-04-25 00:15] VITALS: BP 125/78; PULSE 78; RESP 18; TEMP 36.5
[2021-05-04] MEDS: Normal Saline Flush 10 ML SYR IVP (08:01)
[2021-05-04 08:37] LABS: HCT 25.7 % (36.0-46.0); HGB 8.5 g/dL (11.2-15.7); MCH 31.3 pg (27.0-33.0); MCHC 33.1 % (32.0-36.0); MCV 94.5 fL (80-95); MPV 11.1 fL (8.0-11.0); Platelet Count 273 10^3/uL (130-400); RBC 2.72 10^6/uL (3.93-5.22); RDW 16.5 % (11.7-14.6); RDW-SD 56.6 fL; WBC 12.82 10^3/uL (4.4-10.8)
[2021-05-04 08:49] LABS: ALT 42 U/L (14-59); AST 45 U/L (15-37); Albumin 2.1 g/dL (3.4-5.0); Alkaline Phosphatase 172 U/L (46-116); Anion Gap 13.4 mmol/L (3-11); BUN 7 mg/dL (7-18); Bilirubin, Direct 0.3 mg/dL (0.0-0.2); Bilirubin, Total 0.5 mg/dL (0.2-1.0); CO2 17.6 mmol/L (21.0-32.0); CREATININE 0.7 mg/dL (0.55-1.02); Calcium 7.3 mg/dL (8.5-10.1); Chloride 111 mmol/L (98-107); Glucose 111 mg/dL (74-106); PHOSPHORUS 2.3 mg/dL (2.6-4.7); Potassium 3.4 mmol/L (3.5-5.1); Sodium 142 mmol/L (136-145); Total Protein 6.1 g/dL (6.4-8.2)
[2021-05-04 09:18] LABS: Hemoglobin A1C < 3.8 % (<5.7)
[2021-05-04] MEDS: Heparin 500 UNITS/5 ML SYRINGE IV (10:18)
[2021-05-05 18:04] LABS: Zinc, Serum 0.72 mcg/mL (0.66-1.10)
[2021-05-05 23:22] LABS: Copper, Serum 0.47 mcg/mL (0.75-1.45)
== END 2021-05-22 23:59 | disposition home or self-care (01) ==
LOC: INF 02:27
PROVIDERS: Internal Medicine Gastroenterology; PCP Family Medicine; Visit Provider Family Medicine
DX: K91.2 Postsurgical malabsorption, not elsewhere classified (principal); E83.42 Hypomagnesemia; E87.6 Hypokalemia; D64.9 Anemia, unspecified; E43 Unspecified severe protein-calorie malnutrition; E61.0 Copper deficiency; Z45.2 Encounter for adjustment and management of vascular access device
CPT/HCPCS: 36591; 80048; 80076; 85027; 96365; 96366; 82525; 83036; 83735; 84100; 84630

== ENCOUNTER 2021-05-15 18:27 | Outpatient (REF) | payer BC, SELFPAY ==
[2021-05-15 14:36] LABS: Abs Immature Grans 0.05 10^3/uL (0.0-0.06); Absolute Basophil Count 0.12 10^3/uL (0.0-0.2); Absolute Eosinophil Count 0.15 10^3/uL (0.0-0.7); Absolute Lymphocyte Count 1.11 10^3/uL (1.2-3.4); Absolute Monocyte Count 1.08 10^3/uL (0.1-0.8); Basophils % 1.1; Eosinophils % 1.4; HCT 25.8 % (36.0-46.0); HGB 8.1 g/dL (11.2-15.7); Immature Grans % 0.5; Lymphocytes % 10.1; MCHC 31.4 % (32.0-36.0); MCV 98.9 fL (80-95); MPV 11.5 fL (8.0-11.0); Monocytes % 9.8; Neutrophils % 77.1; Nucleated RBC 0 %; Platelet Count 245 10^3/uL (130-400); RBC 2.61 10^6/uL (3.93-5.22); RDW 20.9 % (11.7-14.6); RDW-SD 74.8 fL; WBC 11.02 10^3/uL (4.4-10.8)
[2021-05-15 14:48] LABS: ALT 44 U/L (14-59); AST 54 U/L (15-37); Albumin 2.2 g/dL (3.4-5.0); Alkaline Phosphatase 166 U/L (46-116); Anion Gap 10.6 mmol/L (3-11); BUN 5 mg/dL (7-18); Bilirubin, Total 0.4 mg/dL (0.2-1.0); CO2 20.4 mmol/L (21.0-32.0); CREATININE 0.5 mg/dL (0.55-1.02); Calcium 7.7 mg/dL (8.5-10.1); Chloride 110 mmol/L (98-107); Glucose 86 mg/dL (74-106); Magnesium 1.6 mg/dL (1.8-2.4); Sodium 141 mmol/L (136-145); Total Protein 6.1 g/dL (6.4-8.2); Triglyceride 47 mg/dL (<150)
[2021-05-15 14:59] LABS: PHOSPHORUS 3.1 mg/dL (2.6-4.7)
[2021-05-15 15:42] LABS: Diff Comment RBC Morph Reviewed
[2021-05-15 15:43] LABS: Anisocytosis 2+; Hypochromasia 1+; Polychromasia Present
[2021-05-16 10:00] LABS: Prealbumin 10 mg/dL (20-40)
== END 2021-05-15 18:28 | disposition home or self-care (01) ==
LOC: LBN 18:27
PROVIDERS: PCP Family Medicine; Visit Provider Internal Medicine Gastroenterology
DX: E86.0 Dehydration (principal); E46 Unspecified protein-calorie malnutrition
CPT/HCPCS: 80053; 83735; 84100; 84134; 84478; 85025

== ENCOUNTER 2021-05-22 12:38 | Outpatient (REF) | payer BC, SELFPAY ==
[2021-05-22 15:01] LABS: Absolute Lymphocyte Count 0.93 10^3/uL (1.2-3.4); Absolute Monocyte Count 0.71 10^3/uL (0.1-0.8); Absolute Neutrophil Count 6.77 10^3/uL (1.2-6.7); Basophils % 1.1; Eosinophils % 2.3; HCT 28.4 % (36.0-46.0); HGB 8.8 g/dL (11.2-15.7); Immature Grans % 0.5; Lymphocytes % 10.6; MCH 31.1 pg (27.0-33.0); MCV 100.4 fL (80-95); MPV 11.2 fL (8.0-11.0); Monocytes % 8.1; Neutrophils % 77.4; Nucleated RBC 0 %; Platelet Count 435 10^3/uL (130-400); RBC 2.83 10^6/uL (3.93-5.22); RDW-SD 67.1 fL; WBC 8.75 10^3/uL (4.4-10.8)
[2021-05-22 15:16] LABS: Diff Comment Agrees w/ Instrument
[2021-05-22 15:17] LABS: Anisocytosis 1+; Macrocytosis 1+
[2021-05-22 15:41] LABS: ALT 25 U/L (14-59); AST 26 U/L (15-37); Alkaline Phosphatase 141 U/L (46-116); Anion Gap 9.7 mmol/L (3-11); BUN 5 mg/dL (7-18); Bilirubin, Total 0.4 mg/dL (0.2-1.0); CO2 20.3 mmol/L (21.0-32.0); CREATININE 0.5 mg/dL (0.55-1.02); Calcium 7.8 mg/dL (8.5-10.1); Chloride 107 mmol/L (98-107); Glucose 84 mg/dL (74-106); Magnesium 1.6 mg/dL (1.8-2.4); Potassium 3.8 mmol/L (3.5-5.1); Sodium 137 mmol/L (136-145); Total Protein 6.2 g/dL (6.4-8.2); Triglyceride 42 mg/dL (<150)
[2021-05-22 15:58] LABS: PHOSPHORUS 3.3 mg/dL (2.6-4.7)
[2021-05-23 10:11] LABS: Prealbumin 8 mg/dL (20-40)
== END 2021-05-22 12:39 | disposition home or self-care (01) ==
LOC: NCHCN 12:38
PROVIDERS: PCP Family Medicine; Visit Provider Internal Medicine Gastroenterology
DX: E46 Unspecified protein-calorie malnutrition (principal)
CPT/HCPCS: 80053; 83735; 84100; 84134; 84478; 85025

== ENCOUNTER 2021-05-29 15:06 | Outpatient (REF) | payer BC, SELFPAY ==
[2021-05-29 16:20] LABS: Abs Immature Grans 0.04 10^3/uL (0.0-0.06); Absolute Basophil Count 0.13 10^3/uL (0.0-0.2); Absolute Eosinophil Count 0.23 10^3/uL (0.0-0.7); Absolute Lymphocyte Count 1.08 10^3/uL (1.2-3.4); Absolute Monocyte Count 0.86 10^3/uL (0.1-0.8); Absolute Neutrophil Count 6.51 10^3/uL (1.2-6.7); Basophils % 1.5; Eosinophils % 2.6; HCT 30.4 % (36.0-46.0); HGB 9.3 g/dL (11.2-15.7); Immature Grans % 0.5; Lymphocytes % 12.2; MCH 30.8 pg (27.0-33.0); MCHC 30.6 % (32.0-36.0); MCV 100.7 fL (80-95); MPV 10.6 fL (8.0-11.0); Monocytes % 9.7; Neutrophils % 73.5; Nucleated RBC 0 %; Platelet Count 421 10^3/uL (130-400); RBC 3.02 10^6/uL (3.93-5.22); RDW 16.5 % (11.7-14.6); RDW-SD 61.5 fL; WBC 8.85 10^3/uL (4.4-10.8)
[2021-05-29 16:28] LABS: Magnesium 1.6 mg/dL (1.8-2.4)
[2021-05-29 16:40] LABS: Triglyceride 47 mg/dL (<150)
[2021-05-30 08:52] LABS: Prealbumin 27 mg/dL (20-40)
[2021-05-30 12:56] LABS: ALT 36 U/L (14-59); AST 37 U/L (15-37); Albumin 2.3 g/dL (3.4-5.0); Alkaline Phosphatase 137 U/L (46-116); Anion Gap 16.5 mmol/L (3-11); BUN 8 mg/dL (7-18); Bilirubin, Total 0.3 mg/dL (0.2-1.0); CO2 15.5 mmol/L (21.0-32.0); CREATININE 0.6 mg/dL (0.55-1.02); Calcium 8.2 mg/dL (8.5-10.1); Chloride 111 mmol/L (98-107); Glucose 109 mg/dL (74-106); Potassium 3.8 mmol/L (3.5-5.1); Sodium 143 mmol/L (136-145); Total Protein 6.6 g/dL (6.4-8.2)
== END 2021-05-29 15:07 | disposition home or self-care (01) ==
LOC: LBN 15:06
PROVIDERS: PCP Family Medicine; Visit Provider Internal Medicine Gastroenterology
DX: E46 Unspecified protein-calorie malnutrition (principal)
CPT/HCPCS: 80053; 83735; 84100; 84134; 84478; 85025

== ENCOUNTER 2021-06-05 14:07 | Outpatient (REF) | payer BC, SELFPAY ==
[2021-06-05 16:07] LABS: Abs Immature Grans 0.06 10^3/uL (0.0-0.06); Absolute Basophil Count 0.16 10^3/uL (0.0-0.2); Absolute Eosinophil Count 0.11 10^3/uL (0.0-0.7); Absolute Lymphocyte Count 1.01 10^3/uL (1.2-3.4); Absolute Monocyte Count 0.78 10^3/uL (0.1-0.8); Absolute Neutrophil Count 10.51 10^3/uL (1.2-6.7); Basophils % 1.3; Eosinophils % 0.9; HCT 32.3 % (36.0-46.0); HGB 10.1 g/dL (11.2-15.7); Immature Grans % 0.5; MCH 30.2 pg (27.0-33.0); MCHC 31.3 % (32.0-36.0); MCV 96.7 fL (80-95); MPV 10.9 fL (8.0-11.0); Monocytes % 6.2; Neutrophils % 83.1; Nucleated RBC 0 %; Platelet Count 457 10^3/uL (130-400); RBC 3.34 10^6/uL (3.93-5.22); RDW 15.1 % (11.7-14.6); RDW-SD 53.3 fL; WBC 12.65 10^3/uL (4.4-10.8)
[2021-06-05 16:27] LABS: ALT 31 U/L (14-59); AST 35 U/L (15-37); Albumin 2.3 g/dL (3.4-5.0); Alkaline Phosphatase 126 U/L (46-116); Anion Gap 10.4 mmol/L (3-11); BUN 14 mg/dL (7-18); Bilirubin, Total 0.3 mg/dL (0.2-1.0); CO2 21.6 mmol/L (21.0-32.0); CREATININE 0.5 mg/dL (0.55-1.02); Calcium 8.1 mg/dL (8.5-10.1); Chloride 105 mmol/L (98-107); Glucose 78 mg/dL (74-106); Magnesium 1.5 mg/dL (1.8-2.4); Potassium 3.8 mmol/L (3.5-5.1); Sodium 137 mmol/L (136-145); Total Protein 6.9 g/dL (6.4-8.2); Triglyceride 60 mg/dL (<150)
[2021-06-05 16:56] LABS: PHOSPHORUS 3.8 mg/dL (2.6-4.7)
[2021-06-06 10:43] LABS: Prealbumin 10 mg/dL (20-40)
== END 2021-06-05 14:08 | disposition home or self-care (01) ==
LOC: LBN 14:07
PROVIDERS: PCP Family Medicine; Visit Provider Internal Medicine Gastroenterology
DX: E46 Unspecified protein-calorie malnutrition (principal)
CPT/HCPCS: 80053; 83735; 84100; 84134; 84478; 85025

== ENCOUNTER 2021-06-12 12:02 | Outpatient (REF) | payer BC, SELFPAY ==
[2021-06-12 13:46] LABS: ALT 49 U/L (14-59); AST 37 U/L (15-37); Albumin 2.1 g/dL (3.4-5.0); Alkaline Phosphatase 116 U/L (46-116); BUN 12 mg/dL (7-18); Bilirubin, Total 0.4 mg/dL (0.2-1.0); CREATININE 0.5 mg/dL (0.55-1.02); Calcium 7.6 mg/dL (8.5-10.1); Chloride 104 mmol/L (98-107); Glucose 83 mg/dL (74-106); Magnesium 1.6 mg/dL (1.8-2.4); PHOSPHORUS 3.7 mg/dL (2.6-4.7); Potassium 3.3 mmol/L (3.5-5.1); Sodium 135 mmol/L (136-145); Total Protein 6.6 g/dL (6.4-8.2)
[2021-06-12 13:59] LABS: Triglyceride 64 mg/dL (<150)
[2021-06-13 10:28] LABS: Prealbumin 6 mg/dL (20-40)
== END 2021-06-12 12:03 | disposition home or self-care (01) ==
LOC: LBN 12:02
PROVIDERS: PCP Family Medicine; Visit Provider Internal Medicine Gastroenterology
DX: E46 Unspecified protein-calorie malnutrition (principal)
CPT/HCPCS: 80053; 83735; 84100; 84134; 84478

== ENCOUNTER 2021-06-13 11:34 | Outpatient (REF) | payer BC, SELFPAY ==
[2021-06-13 11:57] LABS: Abs Immature Grans 0.05 10^3/uL (0.0-0.06); Absolute Basophil Count 0.09 10^3/uL (0.0-0.2); Absolute Eosinophil Count 0.44 10^3/uL (0.0-0.7); Absolute Lymphocyte Count 1.27 10^3/uL (1.2-3.4); Absolute Monocyte Count 1.49 10^3/uL (0.1-0.8); Basophils % 0.6; HCT 33.5 % (36.0-46.0); HGB 10.5 g/dL (11.2-15.7); Immature Grans % 0.3; Lymphocytes % 8.7; MCH 29.2 pg (27.0-33.0); MCHC 31.3 % (32.0-36.0); MCV 93.1 fL (80-95); MPV 10.9 fL (8.0-11.0); Monocytes % 10.2; Neutrophils % 77.2; Nucleated RBC 0 %; Platelet Count 434 10^3/uL (130-400); RDW-SD 51.4 fL
[2021-06-13 12:03] LABS: Absolute Neutrophil Count 11.27 10^3/uL (1.2-6.7)
== END 2021-06-13 11:35 | disposition home or self-care (01) ==
LOC: LBN 11:34
PROVIDERS: PCP Family Medicine; Visit Provider Internal Medicine Gastroenterology
DX: E46 Unspecified protein-calorie malnutrition (principal)
CPT/HCPCS: 85025

== ENCOUNTER 2021-06-19 02:30 | Outpatient (RCR) | payer BC, SELFPAY ==
[2021-06-19] MEDS: Normal Saline Flush 10 ML SYR IVP (10:59)
[2021-06-19 11:18] LABS: HCT 33.1 % (36.0-46.0); HGB 10.4 g/dL (11.2-15.7); MCH 28.8 pg (27.0-33.0); MCHC 31.4 % (32.0-36.0); MCV 91.7 fL (80-95); MPV 9.5 fL (8.0-11.0); RBC 3.61 10^6/uL (3.93-5.22); RDW 15.5 % (11.7-14.6); RDW-SD 52.5 fL; WBC 22.87 10^3/uL (4.4-10.8)
[2021-06-19 11:32] LABS: Platelet Count 818 10^3/uL (130-400)
[2021-06-19 11:33] LABS: ALT 29 U/L (14-59); AST 28 U/L (15-37); Albumin 1.9 g/dL (3.4-5.0); Alkaline Phosphatase 109 U/L (46-116); Anion Gap 9.9 mmol/L (3-11); BUN 15 mg/dL (7-18); Bilirubin, Total 0.4 mg/dL (0.2-1.0); CO2 22.1 mmol/L (21.0-32.0); CREATININE 0.6 mg/dL (0.55-1.02); Chloride 102 mmol/L (98-107); Glucose 98 mg/dL (74-106); Magnesium 1.7 mg/dL (1.8-2.4); PHOSPHORUS 3.9 mg/dL (2.6-4.7); Potassium 3.9 mmol/L (3.5-5.1); Sodium 134 mmol/L (136-145); Total Protein 7.2 g/dL (6.4-8.2); Triglyceride 57 mg/dL (<150)
[2021-06-20 10:17] LABS: Prealbumin 6 mg/dL (20-40)
== END 2021-06-22 23:59 | disposition home or self-care (01) ==
LOC: INF 02:30
PROVIDERS: Internal Medicine Gastroenterology; PCP Family Medicine; Visit Provider Family Medicine
DX: K91.2 Postsurgical malabsorption, not elsewhere classified (principal); E43 Unspecified severe protein-calorie malnutrition; Z78.9 Other specified health status; Z45.2 Encounter for adjustment and management of vascular access device
CPT/HCPCS: 36591; 80053; 85027; 83735; 84100; 84134; 84478

== ENCOUNTER 2021-06-19 15:09 | Inpatient (IN) | payer BC, SELFPAY ==
[2021-06-19] VITALS (85 sets, daily range): BP systolic 93–124; BP diastolic 49–84; PULSE 94–138; RESP 15–27; TEMP 37.2; O2SAT 91–99
--- NOTE | 2021-06-19 15:15 | RT.EKG_ITS ---
APPROVED REPORT Exam: Resting ECG Reason for Exam: tachycardia Patient Location: E HR:116 bpm ECG Measurements Heart Rate 116 AXIS AL 173 P 65 QRSd 75 QRS 75 QT 299 T 34 QTc 416 Conclusion Sinus tachycardia...rate> 99 Probable left atrial enlargement...P >50mS, <-0.10mV V1 Low voltage, extremity leads...all extremity leads <0.5mV no STEMI I have reviewed and interpreted ECG and agree with software generated interpretation.
--- NOTE | 2021-06-19 15:42 | ED.GENADUL_ITS ---
Discharge Plan Disposition Condition: Stable Discharge Details Chief Complaint: Abd Prob Admit Date/Time: 06/19/21 23:52 Admit Provider: Robbie Florez Attending Provider: Robbie Florez Primary Care Provider: Robbie Philippe ED Provider: Elvi Stafford Discharge Instructions Activity:: bedrest Equipment/Supplies:: No Equipment Needed Diet:: clear liquid Discharge Orders Discharge Orders: Discharge Order (Routine); Ordered 06/23/21 Ordered By: Leonardo Ness Discharge Data Discharge Date/Time-TO BE ENTERED AT DEPARTURE: 06/20/21 00:57 Medical Decision Making Patient is a pleasant 56 year old female, accompanied by significant other, with c/c of abdominal discomfort and abnormal labs. She states that she has had 4 weeks of abdominal pain/bloating, worse after eating. She reports that this began shortly after being d/c'ed from [facility] [place] being hospitalized for portal vein thrombosis. She was d/c'ed home on apixaban, denies any missed doses. Had blood work with [facility] today, critical platelet count of 818. WBC elevated on . Patient is an gastroenterology patient. She has been receiving TPN at home. Patient was also noted to have soft tissue [id number] in pancreatic head with f/u in 6-12mo. REports chills at night, no measured fever. Patient is followed by GI at [facility]. 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 Had TTE while recently hospitalized, normal LVEF. Past surgical intervention pertinent for cholecystectomy, incarcerated hernia, hysterectomy. On exam, patient appears chronic ill and uncomfortable. Her abdomen is distended but not tympanitic, fluid wave. Diminished bowel sounds. Well healed surgical incision. 2+ distal pulses, no pitting edema. Lungs clear, normal cardiac exam. No calf tenderness. Concerned for ischemic gut. She is anticoagulated but her platelets and recent dx of portal vein thrombosis has me concerned for this. Sheis tachycardic. Will hydrate, obtain labs. Her oncology team was concerned for possible infected port, will draw cultures peripherally as well as off the port. Radiology called. Advised that she has large amount of ascites. Anasarca noted. Volume overloaded. Nonocclusive thrombus at the portal vein which was previously noted. No pneumatosis. Proximal jejunum dilated which is baseline compared to previous imaging. No arterial thrombos or other venous thrombus. Large fluid collection in the pancreatic head, about 10cm, not consistent with abscess, more likely loculated ascites or simple cyst. Labs reviewed. WBC 24.54, Hbg 9.8, plt count 680. Lactate WNL. CMP significant for mildly low sodium of 133. Creatinine and GFR normal. Calcium slightly low at 8.0, magnesium low at 1.7. Albumin low at 1.8, LFTs otherwise normal. Lipase elevated 1103. To push images to [facility] and will consult with their gastroenterology team who typically cares for the patient. Discussed these findings with the patient as well as her . She states the fentanyl works well for pain, pain has increased slightly and we will give her another dose. Dr. Kent with GI. She advised that patient likely has pancreatitis again. Advised that she could hae pancreatits associated ascites. Recommended paracentesis cell count, culture, albumin, amylase (if elevated likely needs ECRP), protein. We discussed that she is anticoagulated but she recommended mov ing forward with tap. Patient and I discussed risks/benefits of paracentesis. She would like to move forward with this procedure as recommended by GI. Signed consent obtained. Dr. Walker and I preformed bedside diagnostic paracentesis with US guidance. She tolerated this well. Please see procedure note from Dr. Walker. ) Yellow, clarity clear, WBC 515, 36% polynuclear's, 54% mononuclear cell. Contacted the lab and the fluid albumin, amylase and protein are send out and pending. COVID-19 negative. Will consult with [facility]. Consulted again with Dr. Kent with GI. She advised that based on these labs, no evidence of SBP. We discussed the need for fluids with the pancreatitis vs. the fluid overload noted on imaging. She recommended gentle fluids. Will consult with hospitalist. Consulted with Dr. Florez who agrees to admission Medical Records Medical records narrative: Patient seen, interviewed at the bedside, discussed with Ms. Valles. I agree with her assessment and plan. I was present for pertinent procedures. HPI General Date/Time Provider Initiated Documentation: 06/19/21 15:13 . Limitations to Documentation: no limitations . Information obtained by: patient, family, RN notes reviewed and old records reviewed . History of Present Illness 56 year old F presents to the emergency department with the chief complaint of abdominal discomfort, bloating, abnormal labs, described as moderate, with intensity rated at 7. Quality is described as aching, and is localized to the abdomen. Patient reports radiation to back. Patient started experiencing this week(s) and it has been intermittent. improves with No relieving factors improve symptom(s), Eating worsens symptoms . Patient notes fever/chills, loss of appetite, nausea/vomiting and shortness of breath (with increased abdominal pain); denies chest pain, cough and rash. Patient did receive the following treatments prior to arrival, other (has been on abx) Related Data Home Medications Medication Instructions Recorded Confirmed levothyroxine 125 mcg tablet 2 tab PO BID 03/04/17 06/19/21 pantoprazole 20 mg tablet,delayed 20 mg PO BID 11/04/17 06/19/21 release (Protonix) prochlorperazine maleate 5 mg 1 tab PO DAILY 11/04/17 06/19/21 tablet multivitamin 1 tab PO DAILY 05/27/18 06/19/21 cyanocobalamin (vitamin B-12) 500 1,000 mcg PO DAILY #0 tab 05/28/18 06/19/21 mcg tablet (Vitamin B-12) magnesium chloride 64 mg 64 mg PO BID #0 tab 05/28/18 06/19/21 (magnesium chloride) tablet,delayed release (Mag 64) cyanocobalamin (vitamin B-12) 1,000 mcg IM QMONTH 11/06/18 06/19/21 1,000 mcg/mL injection solution fluticasone 250 mcg-salmeterol 50 1 inh INHALATION BID PRN 11/06/18 06/19/21 mcg/dose blistr powdr for inhalation (Advair Diskus) levothyroxine 50 mcg tablet 50 mcg PO BID 11/06/18 06/19/21 albuterol sulfate 90 mcg/actuation 2 puff IH Q4H PRN gm 11/27/19 06/19/21 aerosol inhaler (Ventolin HFA) colestipol 1 gram tablet 1 gm PO ONCE 11/27/19 06/19/21 ergocalciferol (vitamin D2) 1,250 1,250 mcg PO QWEEK 11/27/19 06/19/21 mcg (50,000 unit) capsule loperamide 2 mg capsule 2 mg PO Q6H PRN 11/27/19 06/19/21 (Anti-Diarrheal (loperamide)) potassium chloride 20 mEq 20 meq PO DAILY 11/27/19 06/19/21 tablet,extended release teduglutide 5 mg subcutaneous kit 3.3 mg SC DAILY 11/27/19 06/19/21 (Gattex 30-Vial) apixaban 5 mg tablet (Eliquis) 5 mg PO BID 06/05/21 06/19/21 lipase 3,000-protease 1 cap PO AC 06/05/21 06/19/21 9,500-amylase 15,000 unit capsule, delayed rel (Creon) oxycodone-acetaminophen 5 mg-325 1 tab PO PRN PRN 06/19/21 06/19/21 mg tablet Previous Rx's Medication Instructions Recorded cyanocobalamin (vitamin B-12) 500 1,000 mcg PO DAILY #0 tab 05/28/18 mcg tablet (Vitamin B-12) magnesium chloride 64 mg 64 mg PO BID #0 tab 05/28/18 (magnesium chloride) tablet,delayed release (Mag 64) Allergies Allergy/AdvReac Type Severity Reaction Status Date / Time amoxicillin Allergy Severe anaphylasis Verified 06/19/21 15:21 exenatide [From [place]etta] AdvReac Severe Nausea Verified 06/19/21 15:21 adhesive tape AdvReac Skin Rash Verified 06/19/21 15:21 codeine AdvReac Nausea Verified 06/19/21 15:21 morphine AdvReac Nausea Verified 06/19/21 15:21 General Stated Complaint: Abd Prob COURTNEY: 3 Review of Systems Constitutional Constitutional: Reports as per HPI, Reports chills, Reports fatigue and Denies headache(s) ENT Ears, Nose, Mouth, and Throat: Denies headache(s) Cardiovascular Cardiovascular: Reports as per HPI, Denies chest pain and Denies dyspnea Respiratory Respiratory: Reports as per HPI, Denies cough and Denies dyspnea Gastrointestinal Gastrointestinal: Reports as per HPI Genitourinary Genitourinary: Reports as per HPI (she denies any change in urinary habits) Musculoskeletal Musculoskeletal: Reports as per HPI and Reports back pain (states abdominal pain can radiate into back) Integumentary/Breasts Skin/Breast: Reports as per HPI and Denies rash Neurologic Neurologic: Reports as per HPI and Denies headache(s) Endocrine Endocrine: Reports fatigue PFSH All Active Problems (Updated 06/21/21 @ 09:41 by Ariana Espana MD) DVT (deep venous thrombosis) (Chronic) Asthma (Chronic) Hypoalbuminemia (Acute) Hypocalcemia (Acute) Hyperglycemia (Acute) LOGAN (acute kidney injury) (Acute) Chronic pancreatitis (Acute) Hyponatremia (Acute) Leukocytosis (Acute) Hypotension (Acute) Pancreatitis (Chronic) Neutropenic fever (Acute) Anemia (Acute) Short gut syndrome (Chronic) Hypomagnesemia (Acute) Pharyngitis (Acute) Medical History (Updated 06/21/21 @ 09:41 by Ariana Espana MD) Cardiac murmur LSB-HOLOSYSTOLIC grade II/ As per PCP note 01/10/15 Diabetes Pt. denies having this: I lost 200lbs and it went away Hx of blood clots Pt. states she had a blood clot in her neck 2013 Hypothyroid Intestinal volvulus Lactic acidosis Short gut syndrome Surgical History History of hysterectomy FOR OVARIAN TUMOR W/BILAT OOPHORECTOMY W/UTERUS REMOVED BUT CERVIX REMAINS Incarcerated hernia s/p bowel resection S/P cholecystectomy Tibial plateau fracture (10/30/18) s/p ORIF on 11/10/2018 Family History Other Cancer Diabetes Heart disease Social History Smoking/Tobacco Use Status: Never Smoking risk assessment performed?: Yes Alcohol Intake: former Drug use: Never Substance use type: does not use Current gender identity: female Do you feel safe at home: Yes Do you feel safe in your relationship?: Yes Exam Const General: cooperative, uncomfortable, no acute distress, well developed and ill appearing chronically Nutritional Appearance: average body habitus and well nourished Orientation: alert and awake HENMT Head: normal to inspection Mouth: moist mucous membranes Resp Effort & Inspection: normal respiratory effort, able to speak in complete sentences and no respiratory distress Auscultation: clear to auscultation bilaterally, no rales, no rhonchi and no wheezes Cardio Rate: regular rate Rhythm: regular rhythm Heart Sounds: S1 normal and S2 normal GI Inspection: distended and scar Palpation: soft, not firm, no guarding and tender (diffusely tender) Percussion: dullness to percussion and fluid wave Auscultation: hypoactive bowel sounds Back/Spine/Pelvis Back: no CVA tenderness Skin General skin exam: no rashes or lesions noted Trauma: no lacerations or abrasions Neuro General: patient alert and patient awake Cognition: normal cognition Speech: speech normal Gait: normal gait Extrem General: normal to inspection, no pedal edema and no calf tenderness Psych Appearance: grossly normal and well kempt Mental Status: mental status grossly normal Speech and Movement: speech and movement normal Course Vital Signs Vital signs: Vital Signs Temperature 37.2 C 06/19/21 15:12 Pulse 136 H 06/19/21 15:12 Respiratory Rate 18 06/19/21 15:12 Blood Pressure 118/81 06/19/21 15:12 Pulse Oximetry 97 06/19/21 15:12 Temperature 37.2 C 06/19/21 15:12 Temperature Source Skin 06/19/21 15:12 Pulse 136 H 06/19/21 15:12 Respiratory Rate 18 06/19/21 15:12 Respiratory Effort 06/19/21 15:24 Blood Pressure 118/81 06/19/21 15:12 Blood Pressure Position Sitting 06/19/21 15:12 Pulse Oximetry 97 06/19/21 15:12 Oxygen Delivery Method Room Air 06/19/21 15:12 Oxygen Flow Rate 0 06/19/21 15:12 Pain Level 7 06/19/21 15:12 Procedures Paracentesis Time Out Performed: Yes Local Anesthetic: Lidocaine 1% and with Epi Amount of anesthesia used (mL): 2 Fluid: clear Post Procedure Exam: awake, alert and normal BP Patient Tolerated Procedure: well Complications: none
[2021-06-19] MEDS: Normal Saline 1,000 ML 1000 ML IV (16:24)
[2021-06-19] MEDS: fentaNYL 100 MCG/2 ML VIAL IVP ×3 (16:26→22:40)
[2021-06-19 16:28] LABS: Absolute Lymphocyte Count 0.74 10^3/uL (1.2-3.4); HCT 31.5 % (36.0-46.0); HGB 9.8 g/dL (11.2-15.7); MCH 28.6 pg (27.0-33.0); MCHC 31.1 % (32.0-36.0); MCV 91.8 fL (80-95); MPV 9.3 fL (8.0-11.0); Nucleated RBC 0 %; Platelet Count 680 10^3/uL (130-400); RBC 3.43 10^6/uL (3.93-5.22); RDW 15.5 % (11.7-14.6); RDW-SD 52.8 fL; WBC 24.54 10^3/uL (4.4-10.8)
[2021-06-19 16:32] LABS: Absolute Monocyte Count 1.72 10^3/uL (0.1-0.8)
[2021-06-19] MEDS: Pantoprazole 40 MG VIAL IVP (16:38)
[2021-06-19] MEDS: ACETAMINOPHEN 1,000 MG/100 ML BTL 400 MG IVPB (16:39)
[2021-06-19 16:41] LABS: Absolute Neutrophil Count 22.09 10^3/uL (1.2-6.7); Anisocytosis 1+; Diff Comment Manual Differential; Hypochromasia 2+; Lipase 1103 U/L (73-393); Macrocytosis 1+; Microcytosis 1+
[2021-06-19 16:46] LABS: ALT 29 U/L (14-59); AST 30 U/L (15-37); Albumin 1.8 g/dL (3.4-5.0); Alkaline Phosphatase 107 U/L (46-116); Anion Gap 9.8 mmol/L (3-11); BUN 16 mg/dL (7-18); Bilirubin, Total 0.3 mg/dL (0.2-1.0); CO2 22.2 mmol/L (21.0-32.0); CREATININE 0.5 mg/dL (0.55-1.02); Chloride 101 mmol/L (98-107); Glucose 110 mg/dL (74-106); Magnesium 1.7 mg/dL (1.8-2.4); Potassium 4.2 mmol/L (3.5-5.1); Sodium 133 mmol/L (136-145); Total Protein 6.9 g/dL (6.4-8.2); Troponin I < 50 ng/L (<or=60)
--- NOTE | 2021-06-19 17:15 | DI.CT_ITS ---
Exam(s) CT ABDOMEN PELVIS CTA EXAM: CT ABDOMEN PELVIS CTA CLINICAL HISTORY: abdominal pain after eating, platelet count 818. TECHNIQUE: Imaging Protocol: Axial CT angiography was performed with multi-slice acquisition and m ulti-planar and/or 3D reconstructions. CONTRAST MATERIAL: Intravenous: Omnipaque 350 Contrast volume:100mL Oral: No COMPARISON: CT CT ABDOMEN PELVIS W from 03/16/2021 MR MR LUMBAR SPINE WO/W from 04/11/2021 FINDINGS: ABDOMEN AND PELVIS: Abdomen: Celiac axis/mesenteric arteries: No evidence of occlusion or significant stenosis. Renal Arteries: No evidence of occlusion or significant stenosis. There is a single renal artery perf using each kidney. Aorta: No evidence of occlusion or significant stenosis. No aneurysm or dissection. Pelvis: Iliac Arteries: No evidence of occlusion or significant stenosis. Common Femoral Arteries: No evidence of occlusion or significant stenosis. ABDOMEN: Lung bases: There are small bilateral pleural effusions and subjacent infiltrates which may represent atelectasis or pneumonia. Liver: There is diffuse fatty infiltration of the liver. No measurable mass. Portal, Superior Mesenteric, and Splenic Veins: Hypodense material is seen along the wall at the conf luence of the portal and splenic veins. The findings are suspicious for nonocclusive thrombus. Gallbladder and Biliary Tract: Status post cholecystectomy. Pancreas: Fatty infiltration of the pancreas. Interstitial edema seen in the pancreas. Pancreatitis should be considered. There is a 1 cm cyst in the body of the pancreas. There is an capsulated flu id collection seen around the head of the pancreas. It is concert some mass effect on the caudate lo be of the liver and adjacent stomach. Spleen: Normal. Adrenals: No masses seen. Kidneys: Normal size, contour and axis. No radiodense stones or obstructive uropathy. No masses seen. Bowel: There are again seen findings of a large small-bowel resection. There is dilatation of the re maining visualized small bowel. The colon is of normal caliber. Partial obstruction should be consi dered. No evidence of appendicitis. There is diverticulosis seen in the colon but no evidence of ac chickaloon diverticulitis. Peritoneal Cavity: There is a large amount of abdominal pelvic ascites. No free air. Lymph Nodes: Within normal limits. Bones: Since the prior MRI examination from 04/11/2017 there is been head compression fracture deformi ty of the L1 vertebral body. There is retropulsion into the spinal canal and focal kyphosis at this level. Soft Tissues: Moderate subcutaneous edema is seen. PELVIS: Bladder: Symmetric distention, no gross wall thickening. Reproductive Organs: Unremarkable as visualized. Lymph Nodes: Within normal limits. Bones: Within normal limits. IMPRESSION: 1. Nonocclusive thrombus at the confluence of the portal and splenic veins. 2. Large amount of abdominal pelvic ascites and anasarca. 3. In capsulated fluid collection surrounding the pancreatic head. This may reflect loculation relat ed to the large volume ascites. Pancreatic pseudocyst cannot be excluded. Sequelae of acute pancrea titis should be considered. Please correlate with the patient's pancreatic enzymes. 4. Dilated proximal residual small bowel with normal caliber colon. Partial obstruction cannot be ex cluded. No free air. No pneumatosis intestinalis. 5. New compression deformity and sclerosis of L1. This was not present on the MRI of the lumbar spin e from 04/11/2021. Pathologic fracture cannot be excluded. Consider evaluation with MRI examination. RADIATION DOSE DELIVERED: 1,722.89mGy.cm Total DLP DATA REPOSITORY: All CT scans at this facility are submitted to the National Radiology Data Registry (NRDR) Dose Index Registry (DIR) with the [employer] (ACR). RADIATION OPTIMIZATION: All CT scans at this facility use at least one of these dose optimization te chniques: automated exposure control; mA and/or kV adjustment per patient size (includes targeted exa ms where dose is matched to clinical indication); or iterative reconstruction.
[2021-06-19] MEDS: Omnipaque 350 MG/ML 100 ML BTL IJ (17:19)
--- NOTE | 2021-06-19 17:30 | DI.RAD_ITS ---
Exam(s) XR CHEST 2V PA LATERAL EXAM: XR CHEST 2V PA LATERAL CLINICAL HISTORY: SOB with severe abdominal pain TECHNIQUE: 2D digital imaging was performed of the chest. Two images were obtained. PA and lateral views were obtained. COMPARISON: CR,XR XR PORTABLE CHEST AP from 03/16/2021 FINDINGS: MEDIASTINUM: Normal. HEART: Normal. PULMONARY VASCULATURE: Normal. LUNGS: Clear. PLEURAL SPACE: No pneumothorax. Small bilateral pleural effusions, left greater than right. BONE:Within normal limits for the patient's age. OTHER FINDINGS:The patient has a left subclavian [id number] catheter is in stable position. IMPRESSION: Small bilateral pleural effusions. DATA REPOSITORY: RADIATION DOSE DELIVERED:
[2021-06-19 17:56] LABS: Source Nasopharynx
--- NOTE | 2021-06-19 18:05 | DI.VRAD_ITS ---
Addendum created by Chase Palmer MD on 06/19/2021 6:11:58 PM EDT: THIS REPORT CONTAINS FINDINGS THAT MAY BE CRITICAL TO PATIENT CARE. The findings were verbally communicated via telephone conference with ANTONIO CROWLEY at 6:11 PM EDT on 06/19/2021. The findings were acknowledged and understood. Initial report created on 06/19/2021 6:03:32 PM EDT: PROCEDURE INFORMATION: Exam: CTA Abdomen and Pelvis With Contrast Exam date and time: 06/19/2021 5:08 PM Age: 56 years old Clinical indication: Abdominal pain; Generalized; Patient HX: Mesentaric ischemia protocol done. ; Additional info: Abdominal pain after eating, platlet count 818. TECHNIQUE: Imaging protocol: Computed tomographic angiography of the abdomen and pelvis with contrast material. 3D rendering (Not supervised by radiologist): MIP and/or 3D reconstructed images were created by the technologist. Radiation optimization: All CT scans at this facility use at least one of these dose optimization techniques: automated exposure control; mA and/or kV adjustment per patient size (includes targeted exams where dose is matched to clinical indication); or iterative reconstruction. Contrast material: OMNIPAQUE 350; Contrast volume: 100 ml; Contrast route: INTRAVENOUS (IV); COMPARISON: MR ABDOMEN WO/W 04/11/2021 10:23 AM FINDINGS: Pleural spaces: Small bilateral pleural effusions. Aorta: No aortic aneurysm. No aortic dissection. Celiac trunk and mesenteric arteries: No occlusion or significant stenosis. Renal arteries: No occlusion or significant stenosis. Right iliac arteries: No occlusion or significant stenosis. Left iliac arteries: No occlusion or significant stenosis. Other findings: Nonocclusive thrombus at the confluence of the portal and splenic veins. Liver: Hepatic steatosis. Gallbladder and bile ducts: Unremarkable. No calcified stones. No ductal dilation. Pancreas: Unremarkable. No mass. No ductal dilation. Spleen: Unremarkable. No splenomegaly. Adrenal glands: Unremarkable. No mass. Kidneys and ureters: Unremarkable. No solid mass. No hydronephrosis. Stomach and bowel: The proximal jejunum is dilated with mucosal hyperenhancement. Appendix: No evidence of appendicitis. Intraperitoneal space: Large volume intraperitoneal free fluid with loculated components in the central abdomen and adjacent to the pancreatic tail. Lymph nodes: Unremarkable. No enlarged lymph nodes. Urinary bladder: Unremarkable. No mass. Reproductive: Unremarkable as visualized. Bones/joints: Severe compression deformity and sclerosis of L1 with mild retropulsion the superior endplate. Mild anterolisthesis L4 on L5. Lower lumbar facet arthropathy. Soft tissues: Severe anasarca. IMPRESSION: 1. Nonocclusive thrombus at the confluence of the portal and splenic veins. 2. Findings of severe volume overload with large volume ascites and anasarca. 3. Interstitial edema of the pancreas with somewhat loculated appearing collections adjacent to the pancreatic head and tail. It is unclear whether these represent pancreatic pseudocysts in the setting of severe pancreatitis or are related to the large volume ascites. Recommend correlation with amylase and lipase. 4. Dilated proximal jejunum with narrow transition to distal bowel may reflect partial obstruction. No pneumatosis intestinalis or intraperitoneal free air 5. Severe compression deformity and sclerosis of L1 with mild retropulsion of the superior endplate. This finding is new in comparison to prior MRI from 04/11/2021. Pathologic fracture is not excluded. Consider further evaluation with MRI. Dictated and Authenticated by: Chase Palmer MD. Ordering:CHAPO Boles MD
--- NOTE | 2021-06-19 18:06 | DI.VRAD_ITS ---
PROCEDURE INFORMATION: Exam: XR Chest Exam date and time: 06/19/2021 5:18 PM Age: 56 years old Clinical indication: Other: Trouble breathing with severe abdominal pain; Additional info: Abdominal pain after eating, platlet count 818. With SOB TECHNIQUE: Imaging protocol: XR of the chest. Views: 2 views. COMPARISON: XR PORTABLE CHEST AP 03/16/2021 2:38 AM FINDINGS: Tubes, catheters and devices: Left chest Port-A-Cath terminates over the cavoatrial junction. Lungs: Unremarkable. No consolidation. Pleural spaces: Small bilateral pleural effusions. No pneumothorax. Heart/Mediastinum: Unremarkable. No cardiomegaly. Bones/joints: Unremarkable. IMPRESSION: Small left greater than right pleural effusions. Dictated and Authenticated by: Chase Palmer MD. Ordering:CHAPO Boles MD
[2021-06-19 18:38] LABS: COVID-19 PCR Negative (Negative)
[2021-06-19 20:33] LABS: Bilirubin Negative (Negative); Blood Trace-intact (Negative); Clarity Clear (Clear); Glucose Negative (Negative); Ketones 15 mg/dL (Negative); Leukocyte Esterase Negative (Negative); Nitrite Negative (Negative); Urobilinogen 0.2 EU/dL (Up TO 0.2)
[2021-06-19 20:39] LABS: Bacteria Few HPF (Negative); C & S Indicated? No; Casts Negative LPF (Negative); Crystals Negative HPF (Negative); Epithelial Cells Few HPF (Negative); Mucus Negative (Negative); RBC 0-2 HPF (0-2); WBC 0-2 HPF (0-5)
[2021-06-19 21:10] LABS: Amylase 594 U/L (25-115)
[2021-06-19 21:37] LABS: Clarity Clear; Mononuclear Cells 64 %; Nucleated Cells 515 uL (0); Polynuclear Cells 36 %; Source Peritoneal
[2021-06-19] MEDS: Lactated Ringers 1,000 ML 200 ML IV (22:56)
--- NOTE | 2021-06-19 23:30 | HPE_ITS ---
Date of service: 06/19/21 Time of Service: 23:31 Assessment and Plan Assessment and plan (1) Pancreatitis: Status: Chronic Assessment and plan: Acute pancreatitis, etiology unknown. Will treat with bowel rest, IVF and prn analgesics. The ascites is at this point of undetermined etiology, but may be r elated to hypoalbuminemia (itself likely on a nutritional basis), possibly the pancreatitis, and perhaps some contribution from the portal vein thrombosis, although this is reported as non-occlusive). Will need chemistries to flesh out differential, but at present does not seem to be infectious (leukocytosis is noted, but no fever, and can likely be explained by pancreatitis). 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 Since d/c [place] [facility] [place] has noted increased abdominal swelling and progressive epigastric pain, with occ radiation to back. Here in ER findings of note for absence of fever; white count 24; lipase 1103, albumin 1.8, TBili 0.3, normal TAs; CT demonstrating peripancreatic fluid and gross ascites, with known non- occlusive portal vein thrombosis. Paracentecis performed showing 515 WBC, (36% PMN, 64% mono), chemistries all pending (send out). GI consulted, advised await fluid results, SBP ruled out, consider ERCP, treat pancreatitis with usual supportive measures. Patient has received Fentanyl 100 x 3 with good effect. I was asked to evaluate for admission. Review of Systems Narrative: per HPI PFSH All Active Problems (Updated 06/19/21 @ 23:46 by Robbie Florez MD) Pancreatitis (Chronic) Neutropenic fever (Acute) Anemia (Acute) Short gut syndrome (Chronic) Lactic acidosis (Acute) Hypomagnesemia (Acute) Pharyngitis (Acute) Diabetes (Chronic) Pt. denies having this: I lost 200lbs and it went away Medical History Cardiac murmur LSB-HOLOSYSTOLIC grade II/ As per PCP note 01/10/15 Hx of blood clots Pt. states she had a blood clot in her neck 2013 Hypothyroid Intestinal volvulus Short gut syndrome Surgical History History of hysterectomy FOR OVARIAN TUMOR W/BILAT OOPHORECTOMY W/UTERUS REMOVED BUT CERVIX REMAINS Incarcerated hernia s/p bowel resection S/P cholecystectomy Tibial plateau fracture (10/30/18) s/p ORIF on 11/10/2018 Family History Other Cancer Diabetes Heart disease Social History Smoking/Tobacco Use Status: Never Smoking risk assessment performed?: Yes Alcohol Intake: former Drug use: Never Substance use type: does not use Current gender identity: female Do you feel safe at home: Yes Do you feel safe in your relationship?: Yes Meds Allergies and Home Medications Allergies Allergy/AdvReac Type Severity Reaction Status Date / Time amoxicillin Allergy Severe anaphylasis Verified 06/19/21 15:21 exenatide [From Byetta] AdvReac Severe Nausea Verified 06/19/21 15:21 adhesive tape AdvReac Skin Rash Verified 06/19/21 15:21 codeine AdvReac Nausea Verified 06/19/21 15:21 morphine AdvReac Nausea Verified 06/19/21 15:21 Home Medications Medication Instructions Recorded Confirmed Type levothyroxine 125 mcg tablet 2 tab PO BID 03/04/17 06/19/21 History pantoprazole 20 mg tablet,delayed 20 mg PO BID 11/04/17 06/19/21 History release (Protonix) prochlorperazine maleate 5 mg 1 tab PO DAILY 11/04/17 06/19/21 History tablet multivitamin 1 tab PO DAILY 05/27/18 06/19/21 History cyanocobalamin (vitamin B-12) 500 1,000 mcg PO DAILY #0 tab 05/28/18 06/19/21 Rx mcg tablet (Vitamin B-12) magnesium chloride 64 mg 64 mg PO BID #0 tab 05/28/18 06/19/21 Rx (magnesium chloride) tablet,delayed release (Mag 64) cyanocobalamin (vitamin B-12) 1,000 mcg IM QMONTH 11/06/18 06/19/21 History 1,000 mcg/mL injection solution fluticasone 250 mcg-salmeterol 50 1 inh INHALATION BID PRN 11/06/18 06/19/21 History mcg/dose blistr powdr for inhalation (Advair Diskus) levothyroxine 50 mcg tablet 50 mcg PO BID 11/06/18 06/19/21 History albuterol sulfate 90 mcg/actuation 2 puff IH Q4H PRN gm 11/27/19 06/19/21 History aerosol inhaler (Ventolin HFA) colestipol 1 gram tablet 1 gm PO ONCE 11/27/19 06/19/21 History ergocalciferol (vitamin D2) 1,250 1,250 mcg PO QWEEK 11/27/19 06/19/21 History mcg (50,000 unit) capsule loperamide 2 mg capsule 2 mg PO Q6H PRN 11/27/19 06/19/21 History (Anti-Diarrheal (loperamide)) potassium chloride 20 mEq 20 meq PO DAILY 11/27/19 06/19/21 History tablet,extended release teduglutide 5 mg subcutaneous kit 3.3 mg SC DAILY 11/27/19 06/19/21 History (Gattex 30-Vial) apixaban 5 mg tablet (Eliquis) 5 mg PO BID 06/05/21 06/19/21 History lipase 3,000-protease 1 cap PO AC 06/05/21 06/19/21 History 9,500-amylase 15,000 unit capsule, delayed rel (Creon) oxycodone-acetaminophen 5 mg-325 1 tab PO PRN PRN 06/19/21 06/19/21 History mg tablet Exam Narrative Exam Narrative: 108/75, 119, 37.2, 21, 94% RA. HEENT no scleral icterus; neck supple; lungs clear; heart tachy/regular; chest port left upper chest clean, dry w/o erythema; abdomen gross ascites, minimal epigastric tenderness; extremities trace pedal edema; neuro Ox3, lucid, moves all 4s Results Labs Result diagrams: 06/19/21 16:18 06/19/21 16:18 Labs: Laboratory Results - last 24 hr 06/19/21 06/19/21 06/19/21 16:18 16:18 16:18 WBC 24.54 H RBC 3.43 L Hgb 9.8 L Hct 31.5 L MCV 91.8 MCH 28.6 MCHC 31.1 L RDW 15.5 H Plt Count 680 H MPV 9.3 Immature Gran % 0.0 Neutrophils % 90.0 Lymphocytes % 3.0 Monocytes % 7.0 Eosinophils % 0.0 Basophils % 0.0 Nucleated RBC % 0 Absolute Neutrophils 22.09 H Absolute Lymphocytes 0.74 L Absolute Monocytes 1.72 H Absolute Eosinophils 0.00 Absolute Basophils 0.00 RBC Morphology See Below Hypochromasia 2+ Anisocytosis 1+ Microcytosis 1+ Macrocytosis 1+ VBG Lactate 1.0 Sodium 133 L Potassium 4.2 Chloride 101 Carbon Dioxide 22.2 Anion Gap 9.8 BUN 16 Creatinine 0.5 L Estimated GFR/1.73 m2 >= 60.00 Glucose 110 H Calcium 8.0 L Magnesium 1.7 L Total Bilirubin 0.3 AST 30 ALT 29 Alkaline Phosphatase 107 Troponin I < 50 Total Protein 6.9 Albumin 1.8 L Amylase Lipase Urine Color Urine Clarity Urine pH Ur Specific [place] Urine Protein Urine Ketones Urine Blood Urine Nitrite Urine Bilirubin Urine Urobilinogen Ur Leukocyte Esterase Urine RBC Urine WBC Ur Epithelial Cells Urine Crystals Urine Bacteria Urine Casts Urine Mucus Ur Culture Indicated? Urine Glucose Fluid Source Fluid Color Fluid Clarity Fluid WBC Fld Polynuclear WBCs % Fluid Mononuclear Cell COVID-19 Source SARS-CoV-2 (PCR) 06/19/21 06/19/21 06/19/21 16:18 17:52 19:51 WBC RBC Hgb Hct MCV MCH MCHC RDW Plt Count MPV Immature Gran % Neutrophils % Lymphocytes % Monocytes % Eosinophils % Basophils % Nucleated RBC % Absolute Neutrophils Absolute Lymphocytes Absolute Monocytes Absolute Eosinophils Absolute Basophils RBC Morphology Hypochromasia Anisocytosis Microcytosis Macrocytosis VBG Lactate Sodium Potassium Chloride Carbon Dioxide Anion Gap BUN Creatinine Estimated GFR/1.73 m2 Glucose Calcium Magnesium Total Bilirubin AST ALT Alkaline Phosphatase Troponin I Total Protein Albumin Amylase Lipase 1103 H Urine Color Yellow Urine Clarity Clear Urine pH 6.0 Ur Specific [place] 1.010 Urine Protein Trace H Urine Ketones 15 H Urine Blood Trace-intact H Urine Nitrite Negative Urine Bilirubin Negative Urine Urobilinogen 0.2 Ur Leukocyte Esterase Negative Urine RBC 0-2 Urine WBC 0-2 Ur Epithelial Cells Few Urine Crystals Negative Urine Bacteria Few Urine Casts Negative Urine Mucus Negative Ur Culture Indicated? No Urine Glucose Negative Fluid Source Fluid Color Fluid Clarity Fluid WBC Fld Polynuclear WBCs % Fluid Mononuclear Cell COVID-19 Source Nasopharynx SARS-CoV-2 (PCR) Negative 06/19/21 06/19/21 20:35 21:08 WBC RBC Hgb Hct MCV MCH MCHC RDW Plt Count MPV Immature Gran % Neutrophils % Lymphocytes % Monocytes % Eosinophils % Basophils % Nucleated RBC % Absolute Neutrophils Absolute Lymphocytes Absolute Monocytes Absolute Eosinophils Absolute Basophils RBC Morphology Hypochromasia Anisocytosis Microcytosis Macrocytosis VBG Lactate Sodium Potassium Chloride Carbon Dioxide Anion Gap BUN Creatinine Estimated GFR/1.73 m2 Glucose Calcium Magnesium Total Bilirubin AST ALT Alkaline Phosphatase Troponin I Total Protein Albumin Amylase 594 H Lipase Urine Color Urine Clarity Urine pH Ur Specific [place] Urine Protein Urine Ketones Urine Blood Urine Nitrite Urine Bilirubin Urine Urobilinogen Ur Leukocyte Esterase Urine RBC Urine WBC Ur Epithelial Cells Urine Crystals Urine Bacteria Urine Casts Urine Mucus Ur Culture Indicated? Urine Glucose Fluid Source Peritoneal Fluid Color Yellow Fluid Clarity Clear Fluid WBC 515 Fld Polynuclear WBCs % 36 Fluid Mononuclear Cell 64 COVID-19 Source SARS-CoV-2 (PCR) Last Vital Signs Temp 37.2 C 06/19/21 15:12 Pulse 119 H 06/19/21 21:15 Resp 21 06/19/21 21:15 BP 108/75 06/19/21 21:15 Pulse Ox 94 06/19/21 21:15
[2021-06-20] VITALS (37 sets, daily range): BP systolic 79–116; BP diastolic 51–77; PULSE 97–146; RESP 16–23; TEMP 37.1–37.6; O2SAT 89–98
[2021-06-20] MEDS: fentaNYL 100 MCG/2 ML VIAL IVP ×6 (00:48→11:27)
[2021-06-20] MEDS: Lactated Ringers 1,000 ML 200 ML IV (03:33)
[2021-06-20] MEDS: Normal Saline Flush 10 ML SYR IVP ×3 (05:53→20:05)
[2021-06-20 06:39] LABS: HCT 30.1 % (36.0-46.0); HGB 9.5 g/dL (11.2-15.7); MCH 28.8 pg (27.0-33.0); MCHC 31.6 % (32.0-36.0); MCV 91.2 fL (80-95); MPV 9.6 fL (8.0-11.0); Platelet Count 681 10^3/uL (130-400); RDW 15.9 % (11.7-14.6); RDW-SD 53.2 fL; WBC 22.94 10^3/uL (4.4-10.8)
[2021-06-20 06:54] LABS: BUN 15 mg/dL (7-18); CREATININE 0.5 mg/dL (0.55-1.02); Calcium 7.6 mg/dL (8.5-10.1); Chloride 103 mmol/L (98-107); Glucose 76 mg/dL (74-106); Lipase 1390 U/L (73-393); Potassium 3.7 mmol/L (3.5-5.1); Sodium 135 mmol/L (136-145)
--- NOTE | 2021-06-20 08:34 | PDOC.CMIN ---
- If Service Date Differs Date of service: 06/20/21 Time of Service: 08:34 Care Management Initial Assess REASON FOR HOSPITALIZATION:: Pancreatitis PAST MEDICAL HISTORY/PAST SURGICAL HISTORY:: All Active Problems (Updated 06/19/21 @ 23:46 by Robbie Florez MD). Pancreatitis (Chronic). Neutropenic fever (Acute). Anemia (Acute). Short gut syndrome (Chronic). Lactic acidosis (Acute). Hypomagnesemia (Acute). Pharyngitis (Acute). Diabetes (Chronic). Pt. denies having this: I lost 200lbs and it went away. Medical History . Cardiac murmur. LSB-HOLOSYSTOLIC grade II/. As per PCP note 01/10/15. Hx of blood clots. Pt. states she had a blood clot in her neck 2013. Hypothyroid. Intestinal volvulus. Short gut syndrome. Surgical History . History of hysterectomy. FOR OVARIAN TUMOR W/BILAT OOPHORECTOMY W/UTERUS REMOVED BUT CERVIX REMAINS. Incarcerated hernia. s/p bowel resection. S/P cholecystectomy. Tibial plateau fracture (10/30/18). s/p ORIF on 11/10/2018 PREVIOUS FUNCTIONAL STATUS/SOCIAL/FAMILY SUPPORTS:: Lacie lives in [facility]. with her Christelle Birch and their 14 year old grandson. Lacie does not have children of her own however her has 2 daughters. One of the daughters lives in a small in-law apartment on their property. 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 CURRENT FUNCTIONAL STATUS:: Lacie was sitting up in bed when CM met with her. She was polite and agreeable to conversation but did not volunteer much additional information. Lacie talked a bit about her short gut syndrome and the need for TPN 5 days a week.She explained that [facility] to have her port accessed and then her administers the medication and de-accesses the port at the end of the 5 days. Lacie does not anticipate needing any additional services at discharge. ADVANCE DIRECTIVES:: none on file Has patient been provided with info about the portal/API?: Yes Did the patient sign up for the portal?: No CODE STATUS:: Full Code INSURANCE COVERAGE / FINANCIAL ISSUES:: [employer]ARIEN [employer]HU CURRENT HOME/COMMUNITY SERVICES/EQUIPMENT:: home infusion for TPN PRIMARY CARE PHYSICIAN:: Robbie Philippe POTENTIAL DISCHARGE NEEDS:: follow up with PCP and plan of care PATIENT/FAMILY EDUCATION NEEDS:: Review of discharge instructions, limitations, follow up plan, medicatrions and discuss Ask me Three TRANSPORTATION:: to be determined by disposition PLAN:: Lacie will likely be discharged home with no new services when medically cleared, however it is possible she may need tertiary care if no improvement. She will follow up with her PCP and other community providers and transport with family. CM will continue to support Lacie and assess for ongoing discharge needs.
[2021-06-20] MEDS: Cyanocobalamin 500 MCG TAB 1000 MCG PO (08:38)
[2021-06-20] MEDS: Potassium Chloride 20 MEQ TABCR PO (08:38)
[2021-06-20] MEDS: Multivitamin TAB 1 TAB PO (08:38)
[2021-06-20] MEDS: Pantoprazole 20 MG TABCR PO ×2 (08:39→20:05)
[2021-06-20] MEDS: Magnesium Chloride 64 MG TABCR PO ×2 (08:39→20:05)
[2021-06-20] MEDS: Prochlorperazine 5 MG TAB PO (08:39)
[2021-06-20] MEDS: Lactated Ringers 1,000 ML 100 ML IV (08:47)
--- NOTE | 2021-06-20 09:07 | NUR.NOTE ---
Nursing Note: Sent text out to Marysol JOLLEY for midline placement ordered for this patient.
[2021-06-20] MEDS: Senna TAB 1 TAB PO (09:47)
--- NOTE | 2021-06-20 10:35 | W.NUTCONSULT ---
Date of service: 06/20/21 Time of Service: 10:35 Nutritional Consult ASSESSMENT: 56 year old female admitted to ICU with acute pancreatits, ascites with hx of small bowel resection leading to short gut syndrome in 2017 with weight loss of 200 lbs. Estimated Needs: 9424-4245 kcal, 80-90 g protein, 55-65 g fat Has been receiving TPN at home with limited po intake. Home TPN: 176 g CHO/120 g protein/50 g fat. Fat infusion every other day. Provides 1528 kcal, 120 g protein, 25 g fat daily. Home TPN provides 87% of caloric needs, 130% protein needs, 50% of fat needs Current weight 25 lbs higher than last year and appropriate for height/age. Hx of DM2, resolved. Currently NPO. Labs: elevated lipase and amylase NUTRITIONAL DIAGNOSIS: Altered GI function and impaired nutrient utilization INTERVENTION: Recommend TPN: Clinmix (4.25/10) 2000 ml run at 83 cc/hour with 200 ml 20% lipids providing total of 1380 kcal, 84 g protein, 40 g fat provides: 200 g CHO/84 g protein/ 40 g fat MONITORING AND EVALUATION: Will monitor labs, weight and changes in lipase. If lipase continues to elevate, will need to provide lipids only on alternate days. Time Spent in Nutritional Counseling and Treatment: 30
[2021-06-20] MEDS: ALBUMIN HUMAN 25 GM/100 ML BTL IV (11:09)
[2021-06-20] MEDS: Apixaban 5 MG TAB PO ×2 (11:24→20:05)
[2021-06-20] MEDS: Levothyroxine 200 MCG TAB 400 MCG PO (11:27)
[2021-06-20] MEDS: Ondansetron 4 MG/2 ML VIAL IVP ×2 (11:33→20:04)
--- NOTE | 2021-06-20 11:45 | NUR.NOTE ---
Pt was sitting and then stated she had a wave of nausea. She vomited approx 100mLs. She denies any more nausea now that she has vomited, but zofran was given.
--- NOTE | 2021-06-20 12:18 | W.PM.PROGNOT ---
Date of Service Date of service: 06/20/21 Time of Service: 12:19 Assessment and Plan Assessment and plan (1) Pancreatitis: Status: Chronic Assessment and plan: Acute pancreatitis, etiology unknown. Will treat with bowel rest, IVF and prn analgesics. The ascites is at this point of undetermined etiology, but may be related to hypoalbuminemia (itself likely on a nutritional basis), possibly the pancreatitis, and perhaps some contribution from the portal vein thrombosis, although this is reported as non-occlusive). Will need chemistries from ascites fluid to flesh out differential, but at present does not seem to be infectious (leukocytosis is noted, but no fever, and can likely be explained by pancreatitis). Will allow clear liquids and advance diet as tolerated. Ascites: await fluid analysis, TPN, consider diuresis Portal vein thrombosis / non-occlusive: continue DOAC as is Nutrition: consult regarding TPN Reviewed ADs, requests Full Code (2) Short gut syndrome: Status: Chronic Assessment and plan: Cont home TPN Nutrition consulted. (3) Hypothyroid: Assessment and plan: TSH of 8.04 on 04/14/21 Poor absorption d/t short-gut syndrome. Already high dose of levothyroxine 400mcg daily. Subjective Subjective Patient reports: no new complaints, still having pain, nausea, shortness of breath and afebrile; denies diarrhea or vomiting Exam Const General: cooperative and no acute distress Nutritional Appearance: average body habitus Orientation: alert and oriented x3 Eyes General: appearance normal, both eyes and all related structures Conjunctivae: conjunctivae normal Resp Effort & Inspection: normal respiratory effort Auscultation: clear to auscultation bilaterally Cardio Rate: regular rate Rhythm: regular rhythm Heart Sounds: S1 normal and S2 normal GI Palpation: soft and ascites Auscultation: hypoactive bowel sounds Skin General skin exam: no rashes or lesions noted Extrem General: no calf tenderness and edema Laterality: bilateral (trace) Objective Last Vital Signs Temp 37.4 C 06/20/21 08:30 Pulse 110 H 06/20/21 08:57 Resp 16 06/20/21 01:05 BP 106/66 06/20/21 08:57 Pulse Ox 93 06/20/21 08:57 Laboratory Results - last 24 hr 06/19/21 06/19/21 06/19/21 16:18 16:18 16:18 WBC 24.54 H RBC 3.43 L Hgb 9.8 L Hct 31.5 L MCV 91.8 MCH 28.6 MCHC 31.1 L RDW 15.5 H Plt Count 680 H MPV 9.3 Immature Gran % 0.0 Neutrophils % 90.0 Lymphocytes % 3.0 Monocytes % 7.0 Eosinophils % 0.0 Basophils % 0.0 Nucleated RBC % 0 Absolute Neutrophils 22.09 H Absolute Lymphocytes 0.74 L Absolute Monocytes 1.72 H Absolute Eosinophils 0.00 Absolute Basophils 0.00 RBC Morphology See Below Hypochromasia 2+ Anisocytosis 1+ Microcytosis 1+ Macrocytosis 1+ VBG Lactate 1.0 Sodium 133 L Potassium 4.2 Chloride 101 Carbon Dioxide 22.2 Anion Gap 9.8 BUN 16 Creatinine 0.5 L Estimated GFR/1.73 m2 >= 60.00 Glucose 110 H Calcium 8.0 L Magnesium 1.7 L Total Bilirubin 0.3 AST 30 ALT 29 Alkaline Phosphatase 107 Troponin I < 50 Total Protein 6.9 Albumin 1.8 L Amylase Lipase Urine Color Urine Clarity Urine pH Ur Specific [place] Urine Protein Urine Ketones Urine Blood Urine Nitrite Urine Bilirubin Urine Urobilinogen Ur Leukocyte Esterase Urine RBC Urine WBC Ur Epithelial Cells Urine Crystals Urine Bacteria Urine Casts Urine Mucus Ur Culture Indicated? Urine Glucose Fluid Source Fluid Color Fluid Clarity Fluid WBC Fld Polynuclear WBCs % Fluid Mononuclear Cell COVID-19 Source SARS-CoV-2 (PCR) 06/19/21 06/19/21 06/19/21 16:18 17:52 19:51 WBC RBC Hgb Hct MCV MCH MCHC RDW Plt Count MPV Immature Gran % Neutrophils % Lymphocytes % Monocytes % Eosinophils % Basophils % Nucleated RBC % Absolute Neutrophils Absolute Lymphocytes Absolute Monocytes Absolute Eosinophils Absolute Basophils RBC Morphology Hypochromasia Anisocytosis Microcytosis Macrocytosis VBG Lactate Sodium Potassium Chloride Carbon Dioxide Anion Gap BUN Creatinine Estimated GFR/1.73 m2 Glucose Calcium Magnesium Total Bilirubin AST ALT Alkaline Phosphatase Troponin I Total Protein Albumin Amylase Lipase 1103 H Urine Color Yellow Urine Clarity Clear Urine pH 6.0 Ur Specific [place] 1.010 Urine Protein Trace H Urine Ketones 15 H Urine Blood Trace-intact H Urine Nitrite Negative Urine Bilirubin Negative Urine Urobilinogen 0.2 Ur Leukocyte Esterase Negative Urine RBC 0-2 Urine WBC 0-2 Ur Epithelial Cells Few Urine Crystals Negative Urine Bacteria Few Urine Casts Negative Urine Mucus Negative Ur Culture Indicated? No Urine Glucose Negative Fluid Source Fluid Color Fluid Clarity Fluid WBC Fld Polynuclear WBCs % Fluid Mononuclear Cell COVID-19 Source Nasopharynx SARS-CoV-2 (PCR) Negative 06/19/21 06/19/21 06/20/21 20:35 21:08 06:00 WBC RBC Hgb Hct MCV MCH MCHC RDW Plt Count MPV Immature Gran % Neutrophils % Lymphocytes % Monocytes % Eosinophils % Basophils % Nucleated RBC % Absolute Neutrophils Absolute Lymphocytes Absolute Monocytes Absolute Eosinophils Absolute Basophils RBC Morphology Hypochromasia Anisocytosis Microcytosis Macrocytosis VBG Lactate Sodium 135 L Potassium 3.7 Chloride 103 Carbon Dioxide 21.0 Anion Gap 11.0 BUN 15 Creatinine 0.5 L Estimated GFR/1.73 m2 >= 60.00 Glucose 76 Calcium 7.6 L Magnesium Total Bilirubin AST ALT Alkaline Phosphatase Troponin I Total Protein Albumin Amylase 594 H Lipase 1390 H Urine Color Urine Clarity Urine pH Ur Specific [place] Urine Protein Urine Ketones Urine Blood Urine Nitrite Urine Bilirubin Urine Urobilinogen Ur Leukocyte Esterase Urine RBC Urine WBC Ur Epithelial Cells Urine Crystals Urine Bacteria Urine Casts Urine Mucus Ur Culture Indicated? Urine Glucose Fluid Source Peritoneal Fluid Color Yellow Fluid Clarity Clear Fluid WBC 515 Fld Polynuclear WBCs % 36 Fluid Mononuclear Cell 64 COVID-19 Source SARS-CoV-2 (PCR) 06/20/21 06:00 WBC 22.94 H RBC 3.30 L Hgb 9.5 L Hct 30.1 L MCV 91.2 MCH 28.8 MCHC 31.6 L RDW 15.9 H Plt Count 681 H MPV 9.6 Immature Gran % Neutrophils % Lymphocytes % Monocytes % Eosinophils % Basophils % Nucleated RBC % Absolute Neutrophils Absolute Lymphocytes Absolute Monocytes Absolute Eosinophils Absolute Basophils RBC Morphology Hypochromasia Anisocytosis Microcytosis Macrocytosis VBG Lactate Sodium Potassium Chloride Carbon Dioxide Anion Gap BUN Creatinine Estimated GFR/1.73 m2 Glucose Calcium Magnesium Total Bilirubin AST ALT Alkaline Phosphatase Troponin I Total Protein Albumin Amylase Lipase Urine Color Urine Clarity Urine pH Ur Specific [place] Urine Protein Urine Ketones Urine Blood Urine Nitrite Urine Bilirubin Urine Urobilinogen Ur Leukocyte Esterase Urine RBC Urine WBC Ur Epithelial Cells Urine Crystals Urine Bacteria Urine Casts Urine Mucus Ur Culture Indicated? Urine Glucose Fluid Source Fluid Color Fluid Clarity Fluid WBC Fld Polynuclear WBCs % Fluid Mononuclear Cell COVID-19 Source SARS-CoV-2 (PCR)
[2021-06-20] MEDS: HYDROmorphone 2 MG/ML SYR 1 MG IVP ×2 (15:43→20:34)
[2021-06-20] MEDS: Furosemide 40 MG/4 ML VIAL IVP (15:43)
[2021-06-20 16:14] LABS: C Diff PCR Negative (Negative)
[2021-06-20] MEDS: Lactated Ringers 500 ML IV (16:23)
[2021-06-20 16:43] LABS: Albumin, Body FLuid 1.3 g/dL (See Note)
--- NOTE | 2021-06-20 19:57 | PGE_ITS ---
Date of Service Date of service: 06/20/21 Time of Service: 19:57 Assessment and Plan Assessment and plan (1) Hypotension: Status: Acute Assessment and plan: Patient has mulitple possible etiologies for hypotension, including inflammation from pancreatitis, opioid side effects, possible peritonitis. I am concerned given decreasing BP and low u/o she is intravascularly depleted. She is finally getting TPN now, will repeat bolus of 500ml NS and monitor. I am also concerned about peritonitis. Considered by primary team and felt not c/w this, but her WBC were >500 on paracentesis. I think we should cover. SOFA score not high, I would use cephalosporin but with anaphylaxis to amox, will use ciprofloxacin. If clinically worsening, consider carbapenem. She also may have pancreatic peritonitis which may need endoscopic repair at tertiary care center. We must consider transfer if her clinical status worsens. Subjective Subjective Interval history since last seen: Call from RN: Patient BPs trending down from 90s-100s SBP to 80s/60s. Nursing impression is that color is not as good. urine output last shift ~23ml/hr even after furosemide. Getting TPN now. Hungry this am, had popcicle, not hungry any more. Pain not bad right now. Patient states she feels well, though feels HR go up when active. not feeling feverish, dizzy Exam Narrative Exam Narrative: A&O, no acute distress conj clear, no icterus, MMM Lungs CTAB, slightly deminished right base vs left. CV: tachy but regular, no M/G/R ABD: slightly firm with distension, but not hard, not tender except around paracentesis site. no rebound. ext: 1+ edema shins gavin Objective Last Vital Signs Temp 37.6 C H 06/20/21 15:57 Pulse 135 H 06/20/21 19:30 Resp 18 06/20/21 13:21 BP 88/64 L 06/20/21 19:30 Pulse Ox 89 L 06/20/21 19:30 Laboratory Results - last 24 hr 06/19/21 06/19/21 06/19/21 19:51 20:35 21:08 WBC RBC Hgb Hct MCV MCH MCHC RDW Plt Count MPV Sodium Potassium Chloride Carbon Dioxide Anion Gap BUN Creatinine Estimated GFR/1.73 m2 Glucose Calcium Amylase 594 H Lipase Urine Color Yellow Urine Clarity Clear Urine pH 6.0 Ur Specific [place] 1.010 Urine Protein Trace H Urine Ketones 15 H Urine Blood Trace-intact H Urine Nitrite Negative Urine Bilirubin Negative Urine Urobilinogen 0.2 Ur Leukocyte Esterase Negative Urine RBC 0-2 Urine WBC 0-2 Ur Epithelial Cells Few Urine Crystals Negative Urine Bacteria Few Urine Casts Negative Urine Mucus Negative Ur Culture Indicated? No Urine Glucose Negative Fluid Source Peritoneal Fluid Color Yellow Fluid Clarity Clear Fluid WBC 515 Fld Polynuclear WBCs % 36 Fluid Mononuclear Cell 64 Fluid Albumin Stl C.difficile Tox PCR 06/19/21 06/20/21 06/20/21 21:08 06:00 06:00 WBC 22.94 H RBC 3.30 L Hgb 9.5 L Hct 30.1 L MCV 91.2 MCH 28.8 MCHC 31.6 L RDW 15.9 H Plt Count 681 H MPV 9.6 Sodium 135 L Potassium 3.7 Chloride 103 Carbon Dioxide 21.0 Anion Gap 11.0 BUN 15 Creatinine 0.5 L Estimated GFR/1.73 m2 >= 60.00 Glucose 76 Calcium 7.6 L Amylase Lipase 1390 H Urine Color Urine Clarity Urine pH Ur Specific [place] Urine Protein Urine Ketones Urine Blood Urine Nitrite Urine Bilirubin Urine Urobilinogen Ur Leukocyte Esterase Urine RBC Urine WBC Ur Epithelial Cells Urine Crystals Urine Bacteria Urine Casts Urine Mucus Ur Culture Indicated? Urine Glucose Fluid Source Fluid Color Fluid Clarity Fluid WBC Fld Polynuclear WBCs % Fluid Mononuclear Cell Fluid Albumin 1.3 Stl C.difficile Tox PCR 06/20/21 15:00 WBC RBC Hgb Hct MCV MCH MCHC RDW Plt Count MPV Sodium Potassium Chloride Carbon Dioxide Anion Gap BUN Creatinine Estimated GFR/1.73 m2 Glucose Calcium Amylase Lipase Urine Color Urine Clarity Urine pH Ur Specific [place] Urine Protein Urine Ketones Urine Blood Urine Nitrite Urine Bilirubin Urine Urobilinogen Ur Leukocyte Esterase Urine RBC Urine WBC Ur Epithelial Cells Urine Crystals Urine Bacteria Urine Casts Urine Mucus Ur Culture Indicated? Urine Glucose Fluid Source Fluid Color Fluid Clarity Fluid WBC Fld Polynuclear WBCs % Fluid Mononuclear Cell Fluid Albumin Stl C.difficile Tox PCR Negative
[2021-06-20] MEDS: Normal Saline 250 ML 500 ML IV ×2 (20:07→22:21)
[2021-06-20] MEDS: Acetaminophen 325 MG TAB 650 MG PO (20:09)
[2021-06-20] MEDS: CIPROFLOXACIN 400 MG/200 ML BAG 200 MG IVPB (21:52)
[2021-06-21] VITALS (48 sets, daily range): BP systolic 72–105; BP diastolic 45–85; PULSE 86–117; RESP 13–19; TEMP 36.6–37.2; O2SAT 88–94
--- NOTE | 2021-06-21 | DI.CT_ITS ---
Exam(s) CT ABDOMEN W EXAM: CT ABDOMEN W CLINICAL HISTORY: Pancreatitis, Increased WBC count TECHNIQUE: COMPARISON: CT CT ABDOMEN PELVIS W from 03/16/[address] ABDOMEN PELVIS CTA from 06/19/2021 FINDINGS: CT examination of the upper abdomen was performed with bolus infusion of 100 cc of Omnipaque 350. Ex amination is compared to prior examination of June 19. Note is again made of severe abdominal ascites. Note is again also made of question in capsulated fl uid collection in the vicinity of the head of the pancreas, loculated ascites fluid versus pseudocyst . No gross interval change in appearance comparison with prior examination. There are multiple areas of small bowel wall thickening, prior bowel resection and bowel anastomosis noted. Most prominent small bowel wall thickening appears to involve the duodenum and may be increas ed from prior examination, this may represent inflammation secondary to pancreatitis. No gross perforation. No gross bowel obstruction. Pelvis nonvisualized due to examination requested as abdomen CT only. Unremarkable appearance of liver and spleen. Pancreas very poorly defined. Prior cholecystectomy no екатерина. No gross adenopathy. Adrenals and kidneys unremarkable. No focal vascular abnormality seen. Prior wall deformity or filling deflect of portal confluence again seen, stable from prior examinatio n, possible thrombus. IMPRESSION: Severe abdominal ascites, grossly unchanged from prior study. Question increased bowel wall thickeni ng of segments of small bowel, particularly duodenum, of uncertain etiology, no gross abscess, perfor ation, or obstruction. RADIATION DOSE DELIVERED: 1,160.32mGy.cm Total DLP !Error CTDIvol RADIATION OPTIMIZATION: All CT scans at this facility use at least one of these dose optimization te chniques: automated exposure control; mA and/or kV adjustment per patient size (includes targeted exa ms where dose is matched to clinical indication); or iterative reconstruction.
[2021-06-21] MEDS: HYDROmorphone 2 MG/ML SYR 1 MG IVP ×5 (03:30→21:01)
[2021-06-21] MEDS: Ondansetron 4 MG/2 ML VIAL IVP ×4 (03:30→20:53)
[2021-06-21 06:24] LABS: Abs Immature Grans 0.18 10^3/uL (0.0-0.06); Absolute Eosinophil Count 0.08 10^3/uL (0.0-0.7); Absolute Lymphocyte Count 0.92 10^3/uL (1.2-3.4); Basophils % 0.2; Eosinophils % 0.3; HCT 28.6 % (36.0-46.0); HGB 8.9 g/dL (11.2-15.7); Immature Grans % 0.6; Lymphocytes % 3.3; MCH 28.3 pg (27.0-33.0); MCHC 31.1 % (32.0-36.0); MCV 91.1 fL (80-95); MPV 9.6 fL (8.0-11.0); Monocytes % 5.8; Neutrophils % 89.8; Nucleated RBC 0 %; Platelet Count 578 10^3/uL (130-400); RBC 3.14 10^6/uL (3.93-5.22); RDW 16.3 % (11.7-14.6)
[2021-06-21 06:28] LABS: Absolute Basophil Count 0.06 10^3/uL (0.0-0.2); Absolute Monocyte Count 1.61 10^3/uL (0.1-0.8); Absolute Neutrophil Count 24.93 10^3/uL (1.2-6.7)
[2021-06-21] MEDS: Levothyroxine 200 MCG TAB 400 MCG PO (06:40)
[2021-06-21 06:46] LABS: ALT 16 U/L (14-59); AST 13 U/L (15-37); Albumin 1.5 g/dL (3.4-5.0); Alkaline Phosphatase 72 U/L (46-116); Anion Gap 6.3 mmol/L (3-11); BUN 27 mg/dL (7-18); Bilirubin, Total 0.3 mg/dL (0.2-1.0); CO2 23.7 mmol/L (21.0-32.0); CREATININE 1.1 mg/dL (0.55-1.02); Calcium 7.2 mg/dL (8.5-10.1); Chloride 100 mmol/L (98-107); Estimated GFR 51.57 (mL/min/1.73m2); Glucose 316 mg/dL (74-106); Lipase 1117 U/L (73-393); Potassium 4.7 mmol/L (3.5-5.1); Sodium 130 mmol/L (136-145); Total Protein 5.5 g/dL (6.4-8.2)
[2021-06-21] MEDS: Pantoprazole 20 MG TABCR PO ×2 (06:47→20:55)
[2021-06-21 07:00] LABS: Basophilic Stippling Present; Diff Comment Agrees w/ Instrument; Hypochromasia 1+
[2021-06-21 07:05] LABS: WBC 27.76 10^3/uL (4.4-10.8)
[2021-06-21] MEDS: Lactated Ringers 1,000 ML 200 ML IV (07:48)
[2021-06-21] MEDS: Budesonide/Formoterol 160/4.5 6 GM 60 PUFF INH IH (07:56)
--- NOTE | 2021-06-21 09:00 | W.PULMCC ---
General Date of Service Date of service: 06/21/21 Time of Service: 09:00 Reason for Admission to ICU: Pancreatitis Assessment and Plan Assessment and plan (1) Pancreatitis: Status: Chronic (2) Anemia: Status: Acute (3) Leukocytosis: Status: Acute (4) DVT (deep venous thrombosis): Status: Chronic (5) Hyponatremia: Status: Acute (6) Chronic pancreatitis: Status: Acute (7) LOGAN (acute kidney injury): Status: Acute (8) Asthma: Status: Chronic (9) Hyperglycemia: Status: Acute (10) Hypocalcemia: Status: Acute (11) Hypoalbuminemia: Status: Acute Assessment and plan: This is a 56 yo female with a complex abdominal history who is admitted for acute on chronic pancreatitis (idiopathic). She has worsened from yesterday to today with an LOGAN and a worrisome neutrophil to lymphocyte ratio. Her blood pressures have been borderline but consistently over a MAP of 60-65 which does not seem far off from her baseline, but if she develops consistent hypotension I would recommend starting Levophed. She has been over resuscitated and is over 6L positive. In pancreatitis patients third space all of the fluids due to an almost distributive shock type of process. After about 4L of resuscitation over the first 2 days is more than enough and beyond that there is a risk of developing anasarca, respiratory failure and even abdominal compartment syndorme. Given this I recommend stopping the continuous fluids. Her UOP is of concern and recommend giving schedule albumin and lasix q8h and gauging for response. She is likely developing ATN, which is the most common cause of LOGAN in pancreatitis. She was admitted 2 days ago and her 48 hour Cantil criteria score is 5, which equates to a 40% predicted mortality. Due to this she will be made ICU status today for closer monitoring. Recommendations Pulmonary: Risk for ARDS - close monitoring of pulmonary status - low threshold for CXR Asthma - does not tolerate Symbicort - next of kin bringing in her home Advair - prn albuterol - prn levalbuterol neb added Cardiac: Tachycardia - due to pancreatitis Soft blood pressures - target MAP >65 - if consistently below this, I would recommend starting Levophed Renal: LOGAN, likely ATN - discontinue fluids as below - recommend albumin and Lasix q8h - strict I/O's - repeat UA I&O: Intake & Output 06/18/21 06/19/21 06/20/21 06/21/21 23:59 23:59 23:59 23:59 Intake Total 1100 / 1100 2860.000 / 2860.000 3316.667 / 3316.667 Output Total 525 / 525 100 / 100 Balance 1100 / 1100 2335.000 / 2335.000 3216.667 / 3216.667 Weight 63.049 kg 66.1 kg 72.4 kg Daily Fluid Goal:: Daily even goal GI Nutrition: Acute on Chronic Pancreatitis - recommend stopping continuous fluids - has already received more than enough fluid - recommend albumin and Lasix q8h to help with UOP - agree with repeat abdominal CT today - no role for antibiotics - generally antibiotic are avoided in the first week unless there is coexisting ascending cholangitis - infected necrosis are rare this early on in her course - will get a lactate, VBG, LDH and coags Nutrition - typically TPN is avoided as it pancreatic necrosis and multi-organ failure, however she was on this at home and so will continue this - advance diet as tolerated Date of Last Bowel Movement: 06/20/21 Infectious Disease: No acute concern for infection currently Hematologic: High neutrophil to lymphocyte ratio (24) - poor prognostically - when over 15 there is a 39% chance of requiring over 1 week in the ICU with a 14% chance of in hospital mortality DVT - portal vein thrombosis - continue Eliquis - will get INR, dimer, fibrinogen Neurologic: No acute concerns Endocrine: Hyperglycemia - recommend glucose levels 140-180 - will defer treatment plan to hospitalist Lines: Port Midline Prophylaxis: on Eliquis Code Status: Resuscitation Status Full Code Subjective Critical and life-threatening events over the past 24 hours: This is a 56 yo female with 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 [place] [facility] [place] and reported to [facility] with increasing swelling in the abdomen and epigastric pain. She was found to have acute on chronic pancreatitis. Her triglycerides were normal and her abdominal CT found an encapsulated fluid collection surrounding the pancreatic head that could be pseudocyst and no necrosis. Her CANTWELL score on admission was 7 and her Ransons criteria on admission was only 1. She was significantly resuscitated and is now over 6L positive. Her UOP was only 100cc over the last 24 hours and now her creatinine has bumped. I recommended she become ICU status due to renal failure and was then consulted to see her. On admission she had a paracentesis which was negative for SBP (only 36 WBC) and there has been no groewth of her peritoneal fluid. She feels ok this morning and her pain is very well controlled. She is on her home TPN and has been tolerating some clear liquids. She does complain of pain at the paracentesis site still. She is not having any shortness of breath. Exam Narrative Exam Narrative: POCUS: Abdominal, cardiac and lung ultrasound completed. Abdominal ultrasound finds some moderate ascites surrounding liver and in peritoneum. She has bowel tacked up to peritoneum with small pockets of fluid seen. Not enough to warrant draingage. Probably edematous bowel. Cardiac ultrasound - all four views adequately visualized. Hyperdynamic cardiac activity, no reduced function. IVC is collapsed. Lung ultrasound find a small left sided pleural effusion and no right sided effusion. Gen: NAD, normal respiratory effort HENT: PERRL, nasal turbinates normal without erythema or inflammation, moist oral mucosa, Mallampati 2, No LAD or JVD Chest: No respiratory distress, normal appearance of chest, clear to auscultation bilaterally, no crackles, scattered wheezing, normal inspiratory effort Heart: regular rate and rhythym, no murmurs, rubs or gallops Abdomen: Distended, tympanic, +fluid wave, bandage from paracentesis on left that is clean. Extremities: No clubbing, there is edema on bilateral legs Neuro: AAOx3 , non focal Psych: cooperative, appropriate mental affect Most Recent VS/Results Last Vital Signs Temp 37.6 C H 06/20/21 15:57 Pulse 116 H 06/21/21 08:30 Resp 18 06/20/21 13:21 BP 96/60 L 06/21/21 08:30 Pulse Ox 92 06/21/21 07:31 Laboratory Results - last 24 hr 06/19/21 06/19/21 06/20/21 21:08 21:08 15:00 WBC RBC Hgb Hct MCV MCH MCHC RDW Plt Count MPV Immature Gran % Neutrophils % Lymphocytes % Monocytes % Eosinophils % Basophils % Nucleated RBC % Absolute Neutrophils Absolute Lymphocytes Absolute Monocytes Absolute Eosinophils Absolute Basophils RBC Morphology Hypochromasia Basophilic Stippling Sodium Potassium Chloride Carbon Dioxide Anion Gap BUN Creatinine Estimated GFR/1.73 m2 Glucose Calcium Total Bilirubin AST ALT Alkaline Phosphatase Total Protein Albumin Lipase Fluid Albumin 1.3 Stl C.difficile Tox PCR Negative Path Cons Comment SEE COMMENT 06/21/21 06/21/21 06:10 06:10 WBC 27.76 H* RBC 3.14 L Hgb 8.9 L Hct 28.6 L MCV 91.1 MCH 28.3 MCHC 31.1 L RDW 16.3 H Plt Count 578 H MPV 9.6 Immature Gran % 0.6 Neutrophils % 89.8 Lymphocytes % 3.3 Monocytes % 5.8 Eosinophils % 0.3 Basophils % 0.2 Nucleated RBC % 0 Absolute Neutrophils 24.93 H Absolute Lymphocytes 0.92 L Absolute Monocytes 1.61 H Absolute Eosinophils 0.08 Absolute Basophils 0.06 RBC Morphology See Below Hypochromasia 1+ Basophilic Stippling Present Sodium 130 L Potassium 4.7 D Chloride 100 Carbon Dioxide 23.7 Anion Gap 6.3 BUN 27 H D Creatinine 1.1 H D Estimated GFR/1.73 m2 51.57 Glucose 316 H D Calcium 7.2 L Total Bilirubin 0.3 AST 13 L ALT 16 Alkaline Phosphatase 72 Total Protein 5.5 L Albumin 1.5 L Lipase 1117 H Fluid Albumin Stl C.difficile Tox PCR Path Cons Comment Review of Systems All systems reviewed & are unremarkable except as noted in HPI and below Time spent with patient Time spent in Critical Care: 45 Time spent in Critical care included: Coordination of care, Chart review, Documenting critically ill care, Time at immediate bedside and Discussing critically ill care with other medical staff
[2021-06-21] MEDS: ALBUMIN HUMAN 25 GM/100 ML BTL IV ×2 (09:16→17:58)
[2021-06-21 09:18] LABS: Lab Add On Test DONE
[2021-06-21] MEDS: Magnesium Chloride 64 MG TABCR PO ×2 (09:40→20:55)
[2021-06-21] MEDS: Cyanocobalamin 500 MCG TAB 1000 MCG PO (09:40)
[2021-06-21] MEDS: Apixaban 5 MG TAB PO ×2 (09:40→20:55)
[2021-06-21] MEDS: Acetaminophen 325 MG TAB 650 MG PO ×2 (09:40→20:55)
[2021-06-21] MEDS: Multivitamin TAB 1 TAB PO (09:40)
[2021-06-21] MEDS: Potassium Chloride 20 MEQ TABCR PO (09:40)
[2021-06-21] MEDS: Prochlorperazine 5 MG TAB PO (09:40)
[2021-06-21] MEDS: Normal Saline Flush 10 ML SYR IVP ×7 (09:41→20:53)
[2021-06-21] MEDS: Furosemide 20 MG/2 ML VIAL IVP ×2 (10:05→18:29)
[2021-06-21 10:20] LABS: BE (Venous) -3 mmol/L (-2-3); HCO3 (Venous) 23 mmol/L (23-28); O2 Sat (Venous) 83 %; TCO2 (Venous) 22 mmol/L (24-29); pCO2 (Venous) 41 mmHg (41-51); pH (Venous) 7.36 (7.31-7.41); pO2 (Venous) 53 mmHg
[2021-06-21 10:22] LABS: Lactate 1.5 mmol/L (0.6-1.4)
[2021-06-21] MEDS: Omnipaque 350 MG/ML 100 ML BTL IJ (10:32)
--- NOTE | 2021-06-21 10:32 | W.PM.PROGNOT ---
Date of Service Date of service: 06/21/21 Time of Service: 13:28 Assessment and Plan Assessment and plan (1) Pancreatitis: Status: Chronic Assessment and plan: Acute pancreatitis, etiology unknown. Will treat with bowel rest, IVF and prn analgesics. The ascites is at this point of undetermined etiology, but may be related to hypoalbuminemia (itself likely on a nutritional basis), possibly the pancreatitis, and perhaps some contribution from the portal vein thrombosis, although this is reported as non-occlusive). Will need chemistries from ascites fluid to flesh out differential, but at present does not seem to be infectious (leukocytosis is noted, but no fever, and can likely be explained by pancreatitis). Will allow clear liquids and advance diet as tolerated. Now tolerating water and Jello Ascites: Bedside US today by Dr Espana did not show any large drainable ascites. Portal vein thrombosis / non-occlusive: continue DOAC as is (2) Short gut syndrome: Status: Chronic Assessment and plan: Cont home TPN Nutrition consulted. (3) Hypothyroid: Assessment and plan: TSH of 8.04 on 04/14/21 Poor absorption d/t short-gut syndrome. Already high dose of levothyroxine 400mcg daily. (4) Asthma: Status: Chronic Assessment and plan: Home Advair. PRN albuterol MDI and levalbuterol neb prn (5) Hypotension: Status: Acute Assessment and plan: Has been supported with IV fluid and IV fluid boluses. Now off continuous IV hydration. Encouraging po intake. Monitoring urine outpt. If MAP begins to decline and/or urine output falls will start levophed. Intenivist following. (6) Hyponatremia: Status: Acute Assessment and plan: Monitor. No critical decrease in level. Likely related to third spacing of fluid d/t leaky gut and pancreatitis. (7) LOGAN (acute kidney injury): Status: Acute Assessment and plan: LOGAN d/t volume shifts / 3rd spacing. Creatinine increased from 0.5 to 1.1. Monitor and give fluid as needed. Encourage po intake. Levophed if outpt doesn't respond. Subjective Subjective Patient reports: no new complaints, pain is less, tolerating liquids well, bowel movement and afebrile; denies blood in stool, nausea, vomiting or shortness of breath Exam Narrative Exam Narrative: Lying in bed. Conversational. Const General: cooperative and no acute distress Nutritional Appearance: average body habitus Orientation: alert and oriented x3 Eyes General: appearance normal, both eyes and all related structures Sclera: sclerae normal Resp Effort & Inspection: normal respiratory effort Auscultation: clear to auscultation bilaterally Cardio Rate: tachycardic Rhythm: regular rhythm and abnormal rhythm GI Inspection: distended Palpation: soft and tender (mild in LLQ) Percussion: fluid wave Skin General skin exam: no rashes or lesions noted Extrem General: no pedal edema and no calf tenderness Psych Appearance: grossly normal Mental Status: mental status grossly normal Mood: congruent mood Affect: normal affect Objective Last Vital Signs Temp 37.6 C H 06/20/21 15:57 Pulse 116 H 06/21/21 09:51 Resp 18 06/20/21 13:21 BP 88/60 L 06/21/21 09:51 Pulse Ox 91 L 06/21/21 09:51 Laboratory Results - last 24 hr 06/19/21 06/19/21 06/20/21 21:08 21:08 15:00 WBC RBC Hgb Hct MCV MCH MCHC RDW Plt Count MPV Immature Gran % Neutrophils % Lymphocytes % Monocytes % Eosinophils % Basophils % Nucleated RBC % Absolute Neutrophils Absolute Lymphocytes Absolute Monocytes Absolute Eosinophils Absolute Basophils RBC Morphology Hypochromasia Basophilic Stippling VBG pH VBG pCO2 VBG pO2 VBG HCO3 VBG Total CO2 VBG O2 Saturation VBG Base Excess VBG Lactate Sodium Potassium Chloride Carbon Dioxide Anion Gap BUN Creatinine Estimated GFR/1.73 m2 Glucose Calcium Total Bilirubin AST ALT Alkaline Phosphatase Total Protein Albumin Lipase Fluid Albumin 1.3 Stl C.difficile Tox PCR Negative Path Cons Comment SEE COMMENT Add-On Test Request 06/21/21 06/21/21 06/21/21 06:10 06:10 06:10 WBC 27.76 H* RBC 3.14 L Hgb 8.9 L Hct 28.6 L MCV 91.1 MCH 28.3 MCHC 31.1 L RDW 16.3 H Plt Count 578 H MPV 9.6 Immature Gran % 0.6 Neutrophils % 89.8 Lymphocytes % 3.3 Monocytes % 5.8 Eosinophils % 0.3 Basophils % 0.2 Nucleated RBC % 0 Absolute Neutrophils 24.93 H Absolute Lymphocytes 0.92 L Absolute Monocytes 1.61 H Absolute Eosinophils 0.08 Absolute Basophils 0.06 RBC Morphology See Below Hypochromasia 1+ Basophilic Stippling Present VBG pH VBG pCO2 VBG pO2 VBG HCO3 VBG Total CO2 VBG O2 Saturation VBG Base Excess VBG Lactate Sodium 130 L Potassium 4.7 D Chloride 100 Carbon Dioxide 23.7 Anion Gap 6.3 BUN 27 H D Creatinine 1.1 H D Estimated GFR/1.73 m2 51.57 Glucose 316 H D Calcium 7.2 L Total Bilirubin 0.3 AST 13 L ALT 16 Alkaline Phosphatase 72 Total Protein 5.5 L Albumin 1.5 L Lipase 1117 H Fluid Albumin Stl C.difficile Tox PCR Path Cons Comment Add-On Test Request DONE 06/21/21 06/21/21 10:10 10:10 WBC RBC Hgb Hct MCV MCH MCHC RDW Plt Count MPV Immature Gran % Neutrophils % Lymphocytes % Monocytes % Eosinophils % Basophils % Nucleated RBC % Absolute Neutrophils Absolute Lymphocytes Absolute Monocytes Absolute Eosinophils Absolute Basophils RBC Morphology Hypochromasia Basophilic Stippling VBG pH 7.36 VBG pCO2 41 VBG pO2 53 VBG HCO3 23 VBG Total CO2 22 L VBG O2 Saturation 83 VBG Base Excess -3 L VBG Lactate 1.5 H Sodium Potassium Chloride Carbon Dioxide Anion Gap BUN Creatinine Estimated GFR/1.73 m2 Glucose Calcium Total Bilirubin AST ALT Alkaline Phosphatase Total Protein Albumin Lipase Fluid Albumin Stl C.difficile Tox PCR Path Cons Comment Add-On Test Request Multi-Disciplinary Checklist Lines/Tubes CENTRAL LINE: yes, ARTERIAL LINE: no CROUCH: no ICU Maintenance NUTRITION AT GOAL: no, PRESSURE ULCER: no RESTRAINTS: no ANTIBIOTICS(if yes, consider Stewardship): No Social Issues FAMILY UPDATED: yes PT/OT: yes GOALS/DISPOSITION/GROCERY CLERK: yes CODE STATUS: Full Prophylaxis DVT PROPHYLAXIS: yes GI PROPHYLAXIS: yes,
[2021-06-21 11:03] LABS: D-Dimer 4902 ng/mlFEU (<500)
[2021-06-21 11:14] LABS: INR 1.6 (0.9-1.1); Prothrombin Time 15.5 sec (9.3-11.0)
--- NOTE | 2021-06-21 11:15 | PT.INIE ---
PT Notes Visit Reasons: Pancreatitis, Ascites Physical Therapy Inpatient Initial Evaluation Date: 06/21/21 Referring Doctor: Ramón Suero MD PT Orders: PT CONSULT: Eval & Treat Precautions: Fall. Standard. Patient Profile/Admitting Diagnosis: Lacie is a 56 yo female presenting to the ER on 06/19/21 for abdominal discomfort and abnormal labs. She reports due to short gut syndrome, she has been experiencing generalized weakness for some time. She is independent with ADLs and gets assist from her as needed. Does not tend to leave the house much. Feeling better today than at time of admission, but still weaker and more easily fatigued than at baseline. PMHX: Neutropenic fever (Acute) Anemia (Acute) Short gut syndrome (Chronic) Lactic acidosis (Acute) Hypomagnesemia (Acute) Pharyngitis (Acute) Diabetes (Chronic) Pt. denies having this: I lost 200lbs and it went away Cardiac murmur LSB-HOLOSYSTOLIC grade II/ Hx of blood clots Pt. states she had a blood clot in her neck 2013 Hypothyroid Intestinal volvulus Surgical History History of hysterectomy FOR OVARIAN TUMOR W/BILAT OOPHORECTOMY W/UTERUS REMOVED BUT CERVIX REMAINS Incarcerated hernia s/p bowel resectionS/P cholecystectomy Tibial plateau fracture (10/30/18) s/p ORIF on 11/10/2018 Social History/Home Situation: Lives with spouse in single level home, [address]. Tends to not leave the home. No use of assistive device. Equipment Owned/DME: Not addressed Subjective: Cleared by nursing to see patient and patient is agreeable to PT. Patient is sitting EOB at time of consult. Objective: General Observation: Unremarkable Mental Status: A&O x3 Pain: 1/10 ROM: Right Upper Extremity: Shoulder Flexion WFL. Shoulder abduction WFL. Elbow flexion WFL. Wrist flexion WFL. Opening and closing of hand WFL. Left Upper Extremity: Shoulder Flexion WFL. Shoulder abduction WFL. Elbow flexion WFL. Wrist flexion WFL. Opening and closing of hand WFL. Right Lower Extremity: Hip flexion WFL. Hip abduction WFL. Knee flexion WFL. Ankle dorsiflexion WFL. Ankle plantarflexion WFL. Left Lower Extremity: Hip flexion WFL. Hip abduction WFL. Knee flexion WFL. Ankle dorsiflexion WFL. Ankle plantarflexion WFL. Strength: Right Upper Extremity: Shoulder flexors 4+/5. Shoulder abductors 4+/5. Elbow flexors 4/5. Elbow extensors 3/5. Left Upper Extremity: Shoulder flexors 4+/5. Shoulder abductors 4/5. Elbow flexors 4/5. Elbow extensors 3/5. Right Lower Extremity: Hip flexors 3/5. Hip abductors 3/5. Knee flexors 4+/5. Knee extensors 5-/5. Ankle dorsiflexors 4+/5. Ankle plantarflexors 4/5. Left Lower Extremity: Hip flexors 3/5. Hip abductors 3/5. Knee flexors 4+/5. Knee extensors 5-/5. Ankle dorsiflexors 4+/5. Ankle plantarflexors 4/5. Sensation: Intact as to pain and pressure on bilateral lower extremities. Bed Mobility/Transfers: Supine to sit: Supervision, use of rail, self assists legs Sit to supine: Supervision, use of rail, self assists legs Sit to stand: SBA Stand to sit: SBA Gait: Ambulated 10ft with FWW, CGA Balance: Static Sitting: Good Dynamic Sitting: Fair Static Standing: Fair Dynamic Standing: Poor Special Tests: Mobility Limitations Standardized Measure [facility] AM-PAC 6 clicks Basic Mobility Inpatient Short Form: Raw Score: 14 CMS Score: 61.29% Informed Consent/Education: Patient instructed in purpose of PT consult and plan of care. Assessment: Patient presents with clinical signs and symptoms consistent with current/admitting diagnoses that have resulted to mobility limitations, gait instability, generalized weakness, and impairment of motor control as demonstrated by the following impairment level findings: 1. Decreased strength to all major muscle groups 2. Impaired sitting/standing balance 3. Impaired activity tolerance Impairments are contributing to the following functional limitations: 1. Decreased bed mobility skills 2. Decreased transfer skills 3. Inability to safely ambulate without assistive device and physical assistance 4. Increase completion time for mobility ADL performance 5. Increased fall risk 6. Inability to negotiate steps alone safely Patient is assessed as a Low complexity based on the following: History: 56 year old female with impairment level findings, functional limitations, and past medical history as indicated above Examination: Demonstrable impairment in strength, balance, and mobility level with underlying impairments and functional limitations as documented above Presentation: Stable Decision Making: Low complexity Goals: Goals x1 week 1. Supine-Sit: independent 2. Sit-Supine: independent 3. Sit-Stand: independent 4. Stand-Sit: independent 5. Bed-Chair: independent 6. Chair-Bed: independent 7. Independent gait on level surface with use of least restrictive device for at least 100 feet without report of pain nor dyspnea 8. Independent stair negotiation while holding onto bilateral rails for at least 3 steps without report of pain nor dyspnea 9. Independent with home exercise program 10. Good static and dynamic standing balance/tolerance Plan of Care/Treatment Plan: 1-2x/day, 7 days/week x 1 week. Plan of care has been reviewed with the MARKETING RESEARCHER providing the service under Physical Therapy direction. Initiate Physical Therapy intervention for strengthening, bed mobility, transfers, gait, stairs, balance training, and use of assistive device. Discharge Plan DISCHARGE RECOMMENDATIONS: Home with Home Health PT services TREATMENT CODE/TIME: 10:50-11:15 (25 minutes), [id number], [id number] Thank you for the opportunity to participate in the care of this patient. Nany Chavis, PT, DPT, OCS [facility] [place], [place]
[2021-06-21 11:21] LABS: Bilirubin Negative (Negative); Blood Negative (Negative); Clarity Clear (Clear); Glucose Negative (Negative); Ketones Negative (Negative); Leukocyte Esterase Negative (Negative); Nitrite Negative (Negative); Specific Gravity 1.025 (1.005-1.025); Urobilinogen 0.2 EU/dL (Up TO 0.2); pH 5.5 (5-8)
[2021-06-21 11:31] LABS: LDH 233 U/L (81-234)
--- NOTE | 2021-06-21 12:07 | PDOC.CMPRO ---
- If Service Date Differs Date of service: 06/21/21 Time of Service: 12:07 Care Management Progress Note S/O:Lacie was sitting up in bed visiting with her when CM met with her.She was pleasant but not overly talkative. Lacie stated that she feels about the same as she did yesterday. She still has abdominal pain but it is well controlled with medication. Lacie has had her diet advanced to full liquids and she is tolerating it well so far. A: Lacie is a 56 year old woman admitted on 06/19/21 with pancreatitis P:Lacie will likely be discharged home with no new services, however it is possible she may need tertiary care if no improvement. She will follow up with her PCP and other community providers and transport with family. CM will continue to support Lacie and assess for ongoing discharge needs.
[2021-06-21] MEDS: Insulin Aspart 300 UNITS/3 ML PEN SC ×3 (12:17→21:28)
[2021-06-21 13:08] LABS: HCT 27.3 % (36.0-46.0); HGB 8.7 g/dL (11.2-15.7)
--- NOTE | 2021-06-21 14:50 | NUR.NOTE ---
06/21 We need to call [facility] [phone] (Cheryle Day LPN) on the Amylase, Protein, and fluid type when it results. It is at the [facility] as of 06/21 and will result on 06/22 or 06/23. Dr. Suero is aware they are waiting on these results to decide transfer. Nursing Note:
[2021-06-21 15:02] LABS: Fluid Type Peritoneal; Protein,Total, BF 3.2 g/dL
[2021-06-21 15:51] LABS: Amylase, BF 3555 U/L; Fluid Type Peritoneal
--- NOTE | 2021-06-21 16:01 | CHAPLAIN ---
Lacie was sitting up in bed when I visited. Her was with. Her explained my role, introduced myself and offer support. She was not interested in further conversation at this time.
[2021-06-21 17:17] LABS: Fibrinogen 369 mg/dL (171-384)
[2021-06-22] VITALS (66 sets, daily range): BP systolic 76–102; BP diastolic 48–74; PULSE 99–125; RESP 12–25; TEMP 36.4–36.9; O2SAT 88–94
[2021-06-22] MEDS: HYDROmorphone 2 MG/ML SYR 1 MG IVP ×7 (01:08→23:52)
[2021-06-22] MEDS: Furosemide 20 MG/2 ML VIAL IVP ×3 (02:08→18:30)
[2021-06-22] MEDS: ALBUMIN HUMAN 25 GM/100 ML BTL IV ×3 (02:09→18:03)
[2021-06-22] MEDS: Insulin Aspart 300 UNITS/3 ML PEN SC ×3 (04:26→23:54)
[2021-06-22] MEDS: Normal Saline Flush 10 ML SYR IVP ×5 (04:56→20:19)
[2021-06-22] MEDS: Levothyroxine 200 MCG TAB 400 MCG PO (05:57)
[2021-06-22 06:42] LABS: Abs Immature Grans 0.21 10^3/uL (0.0-0.06); HCT 24.3 % (36.0-46.0); HGB 7.7 g/dL (11.2-15.7); MCH 28.4 pg (27.0-33.0); MCHC 31.7 % (32.0-36.0); MCV 89.7 fL (80-95); MPV 9.8 fL (8.0-11.0); Nucleated RBC 0 %; Platelet Count 492 10^3/uL (130-400); RBC 2.71 10^6/uL (3.93-5.22); RDW 16.8 % (11.7-14.6); RDW-SD 54.8 fL; WBC 24.88 10^3/uL (4.4-10.8)
[2021-06-22 07:00] LABS: ALT 17 U/L (14-59); AST 14 U/L (15-37); Albumin 2.5 g/dL (3.4-5.0); Alkaline Phosphatase 70 U/L (46-116); BUN 37 mg/dL (7-18); Bilirubin, Total 0.4 mg/dL (0.2-1.0); CREATININE 0.9 mg/dL (0.55-1.02); Calcium 7.4 mg/dL (8.5-10.1); Chloride 98 mmol/L (98-107); Glucose 146 mg/dL (74-106); Potassium 4.3 mmol/L (3.5-5.1); Sodium 132 mmol/L (136-145); Total Protein 6.1 g/dL (6.4-8.2)
[2021-06-22 07:07] LABS: Lipase 1546 U/L (73-393)
[2021-06-22 07:16] LABS: Absolute Lymphocyte Count 0.75 10^3/uL (1.2-3.4); Absolute Monocyte Count 1.24 10^3/uL (0.1-0.8); Absolute Neutrophil Count 22.89 10^3/uL (1.2-6.7); Atypical Lymphocytes % 0; Bands % 0; Diff Comment Manual Differential; Hypochromasia 1+
[2021-06-22] MEDS: Ondansetron 4 MG/2 ML VIAL IVP ×2 (08:49→20:18)
[2021-06-22] MEDS: Multivitamin TAB 1 TAB PO (08:51)
[2021-06-22] MEDS: Cyanocobalamin 500 MCG TAB 1000 MCG PO (08:51)
[2021-06-22] MEDS: Pantoprazole 20 MG TABCR PO ×2 (08:51→20:18)
[2021-06-22] MEDS: Magnesium Chloride 64 MG TABCR PO ×2 (08:52→20:18)
[2021-06-22] MEDS: Acetaminophen 325 MG TAB 650 MG PO (08:52)
[2021-06-22] MEDS: Potassium Chloride 20 MEQ TABCR PO (08:52)
[2021-06-22] MEDS: Apixaban 5 MG TAB PO ×2 (08:53→20:18)
--- NOTE | 2021-06-22 09:16 | PDOC.CMPRO ---
- If Service Date Differs Date of service: 06/22/21 Time of Service: 09:16 Care Management Progress Note S/O: Lacie remains in the ICU, per MD, he is hopeful to transfer her to [facility]. CM continues to follow. A: Lacie is a 56 year old woman admitted on 06/19/21 with pancreatitis P: At this time, MD is seeking transfer to tertiary. CM will continue to support Lacie and assess for ongoing discharge needs in the event she does not transfer.
--- NOTE | 2021-06-22 09:51 | W.NUTRFU ---
Date of service: 06/22/21 Time of Service: 09:51 Nutrition Note NOTE: Lacie to start TPN per recommendations from 06/20/21. Will monitor po intake and make necessary adjustments to avoid over feeding. Time Spent in Nutritional Counseling and Treatment: 5
--- NOTE | 2021-06-22 14:49 | PT.INNT ---
PT Notes Visit Reasons: Pancreatitis, Ascites pt declined PT this am as she just back from shower. Nsg states she ambulated approx 15' with her. In pm she refused PT stating she was tired and felt to weak and ill. I encouraged her to go a little distance and nurse tried as well, however Lacie declined. Will check in with her tomorrow.
--- NOTE | 2021-06-22 18:26 | PGE_ITS ---
Date of Service Date of service: 06/22/21 Time of Service: 18:27 Assessment and Plan Assessment and plan (1) Pancreatitis: Status: Chronic Assessment and plan: Acute pancreatitis, etiology unknown. Will treat with bowel rest, IVF and prn analgesics. The ascites is at this point of undetermined etiology, but may be related to hypoalbuminemia (itself likely on a nutritional basis), possibly the pancreatitis, and perhaps some contribution from the portal vein thrombosis, although this is reported as non-occlusive). Will need chemistries from ascites fluid to flesh out differential, but at present does not seem to be infectious (leukocytosis is noted, but no fever, and can likely be explained by pancreatitis). Will allow clear liquids and advance diet as tolerated. Now tolerating water and Jello CT abd on 06/21 did show severe abd ascites had recurred. Portal vein thrombosis / non-occlusive: continue DOAC as is [facility] has been in touch several times today. They are likely going to arrange for transfer tomorrow for an ERCP. Concerned for a pancreatic duct leak given the elevated amylase in the ascites fluid. Lipase trend: 1103 > 1390 > 1117 > 1546. Cont prn Nucynta and prn dilaudid IV; pain is controlled. (2) Short gut syndrome: Status: Chronic Assessment and plan: Cont home TPN Nutrition consult appreciate. Clear liquids; drinking Ensure clears. (3) Hypothyroid: Assessment and plan: TSH of 8.04 on 04/14/21 Poor absorption d/t short-gut syndrome. Already high dose of levothyroxine 400mcg daily. (4) Asthma: Status: Chronic Assessment and plan: Home Advair. PRN albuterol MDI and levalbuterol neb prn Stable w/o exacerbation. (5) Hypotension: Status: Acute Assessment and plan: Has been supported with IV fluid and IV fluid boluses. Now off continuous IV hydration. Encouraging po intake. Monitoring urine outpt. If MAP begins to decline and/or urine output falls will start levophed. Intenivist following. (6) Hyponatremia: Status: Acute Assessment and plan: Monitor. No critical decrease in level. Likely related to third spacing of fluid d/t leaky gut and pancreatitis. (7) LOGAN (acute kidney injury): Status: Acute Assessment and plan: LOGAN d/t volume shifts / 3rd spacing. Creatinine trend: 0.5 > 1.1. > 0.9 Monitor and give fluid as needed. Encourage po intake. Levophed if outpt doesn't respond. Subjective Subjective Patient reports: no new complaints, tolerating liquids well, bowel movement and afebrile; denies blood in stool, nausea, vomiting or shortness of breath Interval history since last seen: No appetite for advancing diet from clear liquids. Exam Narrative Exam Narrative: Lying in bed. Conversational. Const General: cooperative and no acute distress Nutritional Appearance: average body habitus Orientation: alert and oriented x3 Eyes General: appearance normal, both eyes and all related structures Conjunctivae: conjunctivae normal Sclera: sclerae normal Resp Effort & Inspection: normal respiratory effort Auscultation: clear to auscultation bilaterally Cardio Rate: regular rate and tachycardic Rhythm: regular rhythm and abnormal rhythm Heart Sounds: S1 normal and S2 normal GI Inspection: distended Palpation: soft, tender (mild in LLQ) and ascites Percussion: fluid wave Auscultation: hypoactive bowel sounds Skin General skin exam: no rashes or lesions noted Extrem General: no pedal edema, no calf tenderness and edema Laterality: bilateral (trace) Psych Appearance: grossly normal Mental Status: mental status grossly normal Mood: congruent mood Affect: normal affect Objective Last Vital Signs Temp 36.9 C 06/22/21 15:45 Pulse 107 H 06/22/21 15:45 Resp 20 06/22/21 12:34 BP 88/51 L 06/22/21 12:34 Pulse Ox 93 06/22/21 12:34 Laboratory Results - last 24 hr 06/22/21 06/22/21 06:00 06:00 WBC 24.88 H RBC 2.71 L Hgb 7.7 L Hct 24.3 L MCV 89.7 MCH 28.4 MCHC 31.7 L RDW 16.8 H Plt Count 492 H MPV 9.8 Immature Gran % 0.0 Neutrophils % 92.0 Band Neutrophils % 0 Lymphocytes % 3.0 Atypical Lymphs % 0 Monocytes % 5.0 Eosinophils % 0.0 Basophils % 0.0 Nucleated RBC % 0 Absolute Neutrophils 22.89 H Absolute Lymphocytes 0.75 L Absolute Monocytes 1.24 H Absolute Eosinophils 0.00 Absolute Basophils 0.00 RBC Morphology See Below Hypochromasia 1+ Sodium 132 L Potassium 4.3 Chloride 98 Carbon Dioxide 25.0 Anion Gap 9.0 BUN 37 H D Creatinine 0.9 Estimated GFR/1.73 m2 >= 60.00 Glucose 146 H D Calcium 7.4 L Total Bilirubin 0.4 AST 14 L ALT 17 Alkaline Phosphatase 70 Total Protein 6.1 L Albumin 2.5 L Lipase 1546 H
[2021-06-23] VITALS (51 sets, daily range): BP systolic 78–107; BP diastolic 48–64; PULSE 106–131; RESP 13–28; TEMP 36.2–37.2; O2SAT 89–93
[2021-06-23] MEDS: Ondansetron 4 MG/2 ML VIAL IVP
[2021-06-23] MEDS: ALBUMIN HUMAN 25 GM/100 ML BTL IV (02:22)
[2021-06-23] MEDS: Furosemide 20 MG/2 ML VIAL IVP (02:22)
[2021-06-23] MEDS: HYDROmorphone 2 MG/ML SYR 1 MG IVP ×7 (02:35→17:34)
[2021-06-23] MEDS: Normal Saline Flush 10 ML SYR IVP ×3 (06:09→11:34)
[2021-06-23] MEDS: Levothyroxine 200 MCG TAB 400 MCG PO (06:09)
[2021-06-23] MEDS: Insulin Aspart 300 UNITS/3 ML PEN SC ×2 (06:18→11:39)
[2021-06-23 06:50] LABS: Abs Immature Grans 0.33 10^3/uL (0.0-0.06); Absolute Monocyte Count 2.09 10^3/uL (0.1-0.8); Basophils % 0.1; Eosinophils % 0.2; HCT 22.9 % (36.0-46.0); HGB 7.4 g/dL (11.2-15.7); Immature Grans % 1.1; Lymphocytes % 2.5; MCH 28.5 pg (27.0-33.0); MCHC 32.3 % (32.0-36.0); MCV 88.1 fL (80-95); MPV 9.7 fL (8.0-11.0); Monocytes % 7.2; Neutrophils % 88.9; Nucleated RBC 0 %; Platelet Count 460 10^3/uL (130-400); RDW 16.8 % (11.7-14.6); RDW-SD 53.8 fL
[2021-06-23 06:53] LABS: Absolute Basophil Count 0.03 10^3/uL (0.0-0.2); Absolute Eosinophil Count 0.06 10^3/uL (0.0-0.7); Absolute Lymphocyte Count 0.72 10^3/uL (1.2-3.4); Absolute Neutrophil Count 25.75 10^3/uL (1.2-6.7); WBC 28.97 10^3/uL (4.4-10.8)
[2021-06-23 07:01] LABS: Anion Gap 9.6 mmol/L (3-11); BUN 37 mg/dL (7-18); CO2 24.4 mmol/L (21.0-32.0); CREATININE 0.8 mg/dL (0.55-1.02); Calcium 7.7 mg/dL (8.5-10.1); Chloride 98 mmol/L (98-107); Glucose 166 mg/dL (74-106); Lipase 1103 U/L (73-393); Magnesium 2.7 mg/dL (1.8-2.4); PHOSPHORUS 3.6 mg/dL (2.6-4.7); Potassium 3.9 mmol/L (3.5-5.1); Sodium 132 mmol/L (136-145)
[2021-06-23 07:04] LABS: Triglyceride 47 mg/dL (<150)
[2021-06-23 07:08] LABS: Diff Comment Agrees w/ Instrument; RBC Morphology Normal
--- NOTE | 2021-06-23 07:52 | PUCC_ITS ---
General Date of Service Date of service: 06/23/21 Time of Service: 08:31 Reason for Admission to ICU: Pancreatitis Assessment and Plan Assessment and plan (1) Pancreatitis: Status: Chronic (2) Anemia: Status: Acute (3) Leukocytosis: Status: Acute (4) DVT (deep venous thrombosis): Status: Chronic (5) Hyponatremia: Status: Acute (6) Chronic pancreatitis: Status: Acute (7) LOGAN (acute kidney injury): Status: Acute (8) Asthma: Status: Chronic (9) Hyperglycemia: Status: Acute (10) Hypocalcemia: Status: Acute (11) Hypoalbuminemia: Status: Acute Assessment and plan: This is a 56 yo female with a complex abdominal history who is admitted for acute on chronic pancreatitis (idiopathic). She has worsened from yesterday to today with an LOGAN and a worrisome neutrophil to lymphocyte ratio. Her blood pressures have been borderline but consistently over a MAP of 60-65 which does not seem far off from her baseline, but if she develops consistent hypotension I would recommend starting Levophed. She has been over resuscitated and is over 6L positive. In pancreatitis patients third space all of the fluids due to an almost distributive shock type of process. After about 4L of resuscitation over the first 2 days is more than enough and beyond that there is a risk of developi ng anasarca, respiratory failure and even abdominal compartment syndorme. Given this I recommend stopping the continuous fluids. Her UOP is of concern and recommend giving schedule albumin and lasix q8h and gauging for response. She is likely developing ATN, which is the most common cause of LOGAN in pancreatitis. Her 48 hour [place] criteria score is 5, which equates to a 40% predicted mortality. Her UOP has improved since the albumin and Lasix regimen, however she is far too positive at the moment. I recommend stopping the albumin and doubling to Lasix dose to 40 q8. Recommendations Pulmonary: Risk for ARDS - close monitoring of pulmonary status - low threshold for CXR - incentive spirometry Asthma - continue home Advair - prn albuterol - prn levalbuterol neb Cardiac: Tachycardia - due to pancreatitis Soft blood pressures - target MAP >60 - 65 - if consistently below this, I would recommend starting Levophed Renal: LOGAN, improving - discontinue albumin - recommend 40mg Lasix q8h with adjustments to target -1 to 2 L in 24 hours - strict I/O's - repeat UA normal I&O: Intake & Output 06/20/21 06/21/21 06/22/21 06/23/21 23:59 23:59 23:59 23:59 Intake Total 2860.000 / 2860.000 4806.667 / 4806.667 2300 / 2300 1231 / 1231 Output Total 525 / 525 700 / 700 1085 / 1085 700 / 700 Balance 2335.000 / 2335.000 4106.667 / 4106.667 1215 / 1215 531 / 531 Weight 66.1 kg 72.4 kg 73.5 kg Daily Fluid Goal:: Negative 1L to 2L in 24 hours GI Nutrition: Acute on Chronic Pancreatitis - no role for antibiotics - continue to try to advance diet - pain control - continued discussions with [facility] Nutrition - typically TPN is avoided as it pancreatic necrosis and multi-organ failure, however she was on this at home and so will continue this - advance diet as tolerated Date of Last Bowel Movement: 06/11/21 Infectious Disease: No acute concerns Hematologic: High? neutrophil to lymphocyte ratio (24) - poor prognostically - when over 15 there is a 39% chance of requiring over 1 week in the ICU with a 14% chance of in hospital mortality DVT - portal vein thrombosis - continue Eliquis - normal fibrinogen - no DIC Neurologic: No acute concerns Endocrine: Hyperglycemia - recommend glucose levels 140-180 - will defer treatment plan to hospitalist Lines: Port Midline Prophylaxis: on home Eliquis and home PPI Code Status: Resuscitation Status Full Code Subjective Critical and life-threatening events over the past 24 hours: Lacie is in significant pain currently but is due for pain meds. She denies trouble breathing. She tries to take in as much as she can but continues to have nausea and fear associated with eating anything more substantial. Exam Narrative Exam Narrative: POCUS: Abdominal, cardiac and lung ultrasound completed. Abdominal ultrasound finds some moderate ascites surrounding liver and in peritoneum. She has bowel tacked up to peritoneum with small pockets of fluid seen. Not enough to warrant draingage. Probably edematous bowel. Cardiac ultrasound - all four views adequately visualized. Hyperdynamic cardiac activity, no reduced function. IVC is collapsed. Lung ultrasound find a small left sided pleural effusion and no right sided effusion. Gen: NAD, normal respiratory effort HENT: PERRL, nasal turbinates normal without erythema or inflammation, moist oral mucosa, Mallampati 2, No LAD or JVD Chest: No respiratory distress, normal appearance of chest with left sided port, clear to auscultation bilaterally, mild bibasilar crackles, scattered wheezing, normal inspiratory effort Heart: regular rate and rhythym, no murmurs, rubs or gallops Abdomen: Distended, tympanic, +fluid wave, bandage from paracentesis on left that is clean. Extremities: No clubbing, there is edema on bilateral legs Neuro: AAOx3 , non focal Psych: cooperative, appropriate mental affect Most Recent VS/Results Last Vital Signs Temp 36.7 C 06/23/21 04:00 Pulse 110 H 06/23/21 04:00 Resp 16 06/23/21 04:00 BP 87/55 L 06/23/21 02:01 Pulse Ox 92 06/23/21 04:00 Laboratory Results - last 24 hr 06/23/21 06/23/21 06/23/21 06:10 06:10 06:10 WBC 28.97 H* RBC 2.60 L Hgb 7.4 L Hct 22.9 L MCV 88.1 MCH 28.5 MCHC 32.3 RDW 16.8 H Plt Count 460 H MPV 9.7 Immature Gran % 1.1 Neutrophils % 88.9 Lymphocytes % 2.5 Monocytes % 7.2 Eosinophils % 0.2 Basophils % 0.1 Nucleated RBC % 0 Absolute Neutrophils 25.75 H Absolute Lymphocytes 0.72 L Absolute Monocytes 2.09 H Absolute Eosinophils 0.06 Absolute Basophils 0.03 RBC Morphology Normal PT Cancelled INR Cancelled Sodium 132 L Potassium 3.9 Chloride 98 Carbon Dioxide 24.4 Anion Gap 9.6 BUN 37 H Creatinine 0.8 Estimated GFR/1.73 m2 >= 60.00 Glucose 166 H Calcium 7.7 L Phosphorus 3.6 Magnesium 2.7 H Triglycerides Lipase 1103 H 06/23/21 06:10 WBC RBC Hgb Hct MCV MCH MCHC RDW Plt Count MPV Immature Gran % Neutrophils % Lymphocytes % Monocytes % Eosinophils % Basophils % Nucleated RBC % Absolute Neutrophils Absolute Lymphocytes Absolute Monocytes Absolute Eosinophils Absolute Basophils RBC Morphology PT INR Sodium Potassium Chloride Carbon Dioxide Anion Gap BUN Creatinine Estimated GFR/1.73 m2 Glucose Calcium Phosphorus Magnesium Triglycerides 47 Lipase Review of Systems All systems reviewed & are unremarkable except as noted in HPI and below Time spent with patient Time spent in Critical Care: 40 Time spent in Critical care included: Chart review, Documenting critically ill care, Time at immediate bedside and Discussing critically ill care with other medical staff Multi-Disciplinary Checklist Lines/Tubes CENTRAL LINE: yes, Central Line Day#: 99 ICU Maintenance GLUCOSE 140-180mg/dL: yes NUTRITION AT GOAL: no, Reason/Intervention: clears - has not tolerated more yet PRESSURE ULCER: no RESTRAINTS: no ANTIBIOTICS(if yes, consider Stewardship): No Social Issues FAMILY UPDATED: yes PT/OT: no, Reason/Intervention: ordered, pt was non participatory GOALS/DISPOSITION/CUTTING MACHINE OPERATOR HELPER: yes CODE STATUS: Full Prophylaxis DVT PROPHYLAXIS: yes GI PROPHYLAXIS: yes, Indication: home med
[2021-06-23] MEDS: Pantoprazole 20 MG TABCR PO (08:22)
[2021-06-23] MEDS: Prochlorperazine 5 MG TAB PO (08:33)
[2021-06-23] MEDS: Potassium Chloride 20 MEQ TABCR PO (09:31)
[2021-06-23] MEDS: Magnesium Chloride 64 MG TABCR PO (09:31)
[2021-06-23] MEDS: Cyanocobalamin 500 MCG TAB 1000 MCG PO (09:31)
[2021-06-23] MEDS: Apixaban 5 MG TAB PO (09:31)
[2021-06-23] MEDS: Multivitamin TAB 1 TAB PO (09:32)
--- NOTE | 2021-06-23 09:39 | W.PM.PROGNOT ---
Date of Service Date of service: 06/23/21 Time of Service: 09:39 Assessment and Plan Assessment and plan (1) Pancreatitis: Status: Chronic Assessment and plan: unclear etiology. Initial CTA abdomen and pelvis demonstrated: Nonocclusive thrombus at the confluence of the portal and splenic veins for which the patient is currently on a D.O.A.C. She has a large amount of abdominal pelvic ascites and anasarca along with an encapsulated fluid collections around the pancreatic head which may be a pancreatic pseudocyst. Repeat CT of the abdomen pelvis performed 06/21/2021 again showed severe abdominal ascites with questionable increased bowel wall thickening of segments of small bowel particularly the duodenum but no evidence of perforation or obstruction. Again there is a capsular fluid collection of the center of the head of the pancreas loculated ascites. Patient is status post cholecystectomy and the liver and spleen appear to be unremarkable. Patient was initially resuscitated with IV fluids, bowel rest, analgesics. However she is now currently 9 L positive and although she does not feel dyspneic her oxygen saturation is borderline at 90 to 91%. We will attempt diuresis however I think a repeat paracentesis should be considered. Patient is on a clear liquid diet with orders to advance as tolerated but patient is very reluctant to advance this. She gets rather nauseated. We will attempt to encourage her to drink Ensure. She remains on TPN which she been on at home. She has a portal vein thrombosis is nonocclusive which is being treated with a D.O.A.C. Pain is being controlled with Nucynta and as needed IV Dilaudid. Patient still has elevated inflammatory markers including significant leukocytosis but no evidence for infection so far. Currently no role for antibiotics at this time. I reached out to [facility] and spoke with the transfer center requested consultation with Dr. Tai from GI. Patient may need to be transferred an ERCP. I have added midodrine to try to help support her blood pressure so we can attempt to diurese her. However this does not work she will need vasopressors and consideration should be given for repeat paracentesis. Case was discussed earlier this morning with Dr. Espana prior to my examination of the patient. Critical care time spent with the patient in obtaining her history, providing an examination, reviewing pertinent lab and radiologic studies as well as discussion with the generator man and with the patient's nurse 45 minutes (2) Short gut syndrome: Status: Chronic Assessment and plan: Cont home TPN Nutrition consult appreciate. Clear liquids; drinking Ensure clears. (3) Asthma: Status: Chronic Assessment and plan: Home Advair. PRN albuterol MDI and levalbuterol neb prn Stable w/o exacerbation. Encourage use of I-S to prevent atelectasis. Encourage her to get out of bed and be upright as much as possible. Encourage ambulation. (4) Hypothyroid: Assessment and plan: TSH of 8.04 on 04/14/21 Poor absorption d/t short-gut syndrome. Already high dose of levothyroxine 400mcg daily. Consider parenteral administration of levothyroxine. (5) Hypotension: Status: Acute Assessment and plan: MAP levels are in the low 60s. Trial of midodrine if this does not work then will switch to IV vasopressors. (6) Hyponatremia: Status: Acute Assessment and plan: Monitor. No critical decrease in level. Likely related to third spacing of fluid d/t leaky gut and pancreatitis. (7) LOGAN (acute kidney injury): Status: Acute Assessment and plan: LOGAN d/t volume shifts / 3rd spacing. Creatinine trend: 0.5 > 1.1. > 0.9 Monitor and give fluid as needed. Encourage po intake. Consider vasopressors if her MAP does not improve with midodrine. Subjective Subjective Interval history since last seen: Abdominal pain relatively controlled w/ use of Nucynta and prn use of parenteral dilaudid. Patient had small BM last night. I have ordered bowel regimen of senna and colace along w/ prn miralax. She is on TPN for short gut syndrome. I have place a call to [facility] [place] transfer center to request telephone consult w/ GI and transfer of the patient. Dr. Tai is technical healthcare consultant for GI and has been paged to return my call. Per Dr. Espana, she is stopping the albumin infusion w/ her lasix and has increased her lasix to 40 mg IV q8hr to try to diurese her. She is 9 liters positive over her hospitalization. Her wt is up to 73.5 kg (as of yesterday, not yet weighed today; admission wt was 63 kg). Her BP have been tenuous w/ MAP from low 60's to 65 (SBP has been high 80's to low 90's). I have added midodrine to her regimen but if this fails and her BP and urine output are low then she should receive a vasopressor. Dr. Espana is favoring N.E. however she is already tachycardic in the 102' to 130's therefore I would favor phenylephrine. Exam Narrative Exam Narrative: Middle-aged female lying in bed semisolid position alert and oriented person place time circumstance. Lungs are clear anteriorly posteriorly she has diminished breath sounds at the bases. Heart is tachycardic but regular with a harsh systolic murmur grade 3/6 over the apex Abdomen is distended but with active bowel sounds rather tense ascites without rebound tenderness or guarding. Lower extremities with 2+ pitting edema of her feet and lower legs Neuro exam grossly intact no focal motor or sensory deficits. Speech is clear and coherent she is alert and oriented person place time circumstance. Objective Last Vital Signs Temp 36.7 C 06/23/21 04:00 Pulse 113 H 06/23/21 09:30 Resp 14 06/23/21 09:30 BP 93/55 L 06/23/21 09:30 Pulse Ox 89 L 06/23/21 09:30 Laboratory Results - last 24 hr 06/23/21 06/23/21 06/23/21 06:10 06:10 06:10 WBC 28.97 H* RBC 2.60 L Hgb 7.4 L Hct 22.9 L MCV 88.1 MCH 28.5 MCHC 32.3 RDW 16.8 H Plt Count 460 H MPV 9.7 Immature Gran % 1.1 Neutrophils % 88.9 Lymphocytes % 2.5 Monocytes % 7.2 Eosinophils % 0.2 Basophils % 0.1 Nucleated RBC % 0 Absolute Neutrophils 25.75 H Absolute Lymphocytes 0.72 L Absolute Monocytes 2.09 H Absolute Eosinophils 0.06 Absolute Basophils 0.03 RBC Morphology Normal PT Cancelled INR Cancelled Sodium 132 L Potassium 3.9 Chloride 98 Carbon Dioxide 24.4 Anion Gap 9.6 BUN 37 H Creatinine 0.8 Estimated GFR/1.73 m2 >= 60.00 Glucose 166 H Calcium 7.7 L Phosphorus 3.6 Magnesium 2.7 H Triglycerides Lipase 1103 H 06/23/21 06:10 WBC RBC Hgb Hct MCV MCH MCHC RDW Plt Count MPV Immature Gran % Neutrophils % Lymphocytes % Monocytes % Eosinophils % Basophils % Nucleated RBC % Absolute Neutrophils Absolute Lymphocytes Absolute Monocytes Absolute Eosinophils Absolute Basophils RBC Morphology PT INR Sodium Potassium Chloride Carbon Dioxide Anion Gap BUN Creatinine Estimated GFR/1.73 m2 Glucose Calcium Phosphorus Magnesium Triglycerides 47 Lipase
[2021-06-23 09:51] LABS: INR 1.4 (0.9-1.1); Prothrombin Time 14.3 sec (9.3-11.0)
--- NOTE | 2021-06-23 10:06 | PDOC.CMPRO ---
- If Service Date Differs Date of service: 06/23/21 Time of Service: 10:06 Care Management Progress Note S/O: Lacie remains ICU level of care. She was sitting up in bed when CM met with her. Her was visiting at the time. Lacie stated that she feels about the same as she has for the past few days. She continues to have pain but it is being managed well today. She is receiving IV lasix for fluid retention and her blood pressures have been low, although not critical. Attempts have been made for the past 2 days to transfer Lacie to [facility] [place] [place] but she has not been accepted as yet. CM continues to follow. A: Lacie is a 56 year old woman admitted on 06/19/21 with pancreatitis P: At this time, MD is seeking transfer to tertiary. CM will continue to support Lacie and assess for ongoing discharge needs in the event she does not transfer.
[2021-06-23] MEDS: Furosemide 40 MG/4 ML VIAL IVP (10:17)
[2021-06-23] MEDS: Senna TAB 1 TAB PO (10:27)
--- NOTE | 2021-06-23 11:53 | PT.INTREAT ---
PT Notes Visit Reasons: Pancreatitis, Ascites Subjective: Pt reports that she has 3/10 pain at rest, 4/10 pain at worst with mobility. Objective: Pt medicated at the beginning of today's session for pain management Vitals - BP 95/57 at rest, 118bpm at rest, 89% SpO2 at rest on RA Treatment: Therapeutic procedures: Supine exercises with tactile and verbal cuing for ROM completion: Ankle pumps: 1x10 B Heel slides: 1x10 B SAQ: 1x10 B Glute set: 1x10s B hip abduction isometric: 1x10s B hip adduction isometric: 1x10s B Therapeutic Activities: Sit to stand: 2x5 repetitions from approx 22 seat height with pt given cuing for fwd progression of COG and use of UEs during transfers. Gait: 1x10ft with FWW and SBA. Pt demonstrates reduced step length B, assist with management of lines. Stand pivot transfer Bed <> commode: 1x in each direction, SBA. Direct Treatment Time: 30 min. Total Treatment Time: 30 min. Units Time Duration Manual Therapy (23100) min. Therapeutic Procedures (63065) 1 15 min. Neurological Re-education (93513) min. Therapeutic Activity (94196) 1 15 min. min. min. Assessment: Pt demonstrates good tolerance to physical therapy interventions today, completing sets of sit to stand and transfers. Pt continues to present with deficits in functional mobility and LE functional strength. Pt continues to be appropriate for skilled physical therapy services to address the above mentioned deficits. Discharge Plan DISCHARGE RECOMMENDATIONS: Home with Home Health PT services TREATMENT CODE/TIME: 11:20-11:50 (30 minutes), [id number], [id number]
--- NOTE | 2021-06-23 14:02 | W.NUTRFU ---
Date of service: 06/23/21 Time of Service: 14:02 Nutrition Note NOTE: Met with Lacie today in ICU. She is tolerating full liquids- ate pudding at lunch. TPN per orders running. In view of lipase level increasing from initial baseline, recommend alternate days for hanging lipids. Monitor lipase daily, triglycerides couple days a week. Blood sugars as controlled with insulin. Trig wnl. Time Spent in Nutritional Counseling and Treatment: 5
[2021-06-23] MEDS: Midodrine 2.5 MG TAB 5 MG PO (14:17)
[2021-06-23] MEDS: Docusate Sodium 100 MG CAP PO (14:17)
[2021-06-23] MEDS: Acetaminophen 325 MG TAB 650 MG PO (15:14)
--- NOTE | 2021-06-23 16:54 | W.PM.DS.N ---
Date of service: 06/23/21 DS: Diagnosis Discharge Diagnosis (1) Pancreatitis: Status: Chronic Asessment and Plan: See discharge summary below (2) Short gut syndrome: Status: Chronic (3) Asthma: Status: Chronic (4) Hypothyroid: (5) Hypotension: Status: Acute Asessment and Plan: Improved with addition of midodrine. 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 Work-up in emergency department was notable for a white count of 24,000 lipase of 1100, albumin 1.8, normal transaminases, and a CTA of the abdomen pelvis that demonstrated large amount of abdominal pelvic ascites and anasarca as well as a nonocclusive thrombus at the confluence of the portal and splenic veins as well as encapsulated fluid collection surrounding the pancreatic head for which a pseudocyst could not be excluded. She also has dilated proximal residual small bowel with normal caliber of the colon but no pneumatosis intestinalis. Chest x-ray on admission showed small bilateral pleural effusions. While in the emergency department patient underwent a bedside diagnostic paracentesis under ultrasound guidance which was performed by Dr. Edvin Walker as well as physician sourcing assistant Elvi Stafford. Fluid showed clear yellow paracentesis fluid with a white count of 515 with 36% PMNs, 54% mononuclear cells and a fluid amylase of 3550 and a fluid albumin level 1.3 and a protein level of 3.2. Her other chemistries were remarkable for normal renal function with a BUN of 15 creatinine 0.5 and her CBC demonstrated an anemia with a hemoglobin of 10.4 g and a platelet count of 818,000. Her coagulation studies were mildly impaired with a pro time of 15.5 and INR 1.6 with a fibrinogen level of 369 and a D-dimer of 4900. UA was remarkable for 50 mg of ketones trace of protein trace of blood but negative for bacteria or casts or crystals. Her VBG showed a blood lactate level of 1.0. TAMMY Torre from the emergency department discussed the paracentesis laboratory values with GI fellow from [facility] Dr. Abreu who advised the ED department that these were not consistent with spontaneous bacterial peritonitis. And she recommended gentle IV fluid hydration analgesics antiemetics for supportive care of her acute pancreatitis. It was recommended that she would likely need an ERCP at some point. Patient was admitted to the medical/surgical unit where she was placed on clear liquid diet as tolerated and resumed on her TPN. However patient developed hypotension with systolic blood pressures in the high 70s to low 80s systolic and diastolic readings in the high 40s to low 50s. This necessitated transfer to the intensive care unit where she received aggressive IV fluid resuscitation. Blood cultures had been obtained on admission and her peritoneal fluid was sent for Gram stain and culture. Gram stain showed many white cells but no bacteria. Eventually both her blood cultures and peritoneal fluid cultures came back no growth. Nevertheless she was covered with ciprofloxacin on the evening of 06/20/2021 through the morning of 06/21/2021 before antibiotics were discontinued. Pulmonary/critical care medicine consult was obtained with Dr. Ariana Shah. Bedside portable ultrasound was performed by her on 06/21/2021 which did not show any large drainable fluid although the patient had loculated ascites. Repeat CT scan of the abdomen on 06/21/2021 showed severe abdominal ascites. Dr. Suero, the attending hospitalist contacted GI from [facility] and spoke with them multiple times on 06/22/2021 and they had indicated to him that she would need transfer for an ERCP and expected her to be transferred to [facility] the following day on 06/23/2021 as they were concerned that she has a pancreatic duct leak leading to the elevated amylase and her ascites fluid. Her pancreatitis was treated with IV fluids antiemetics and narcotic analgesics. She was kept on TPN for nutritional support placed on PPI for GI prophylaxis. By 06/22/2021 blood pressure is stabilized and IV fluids were discontinued. change booth attendant saw the patient on 06/21/2021 and again in follow-up on 06/23/2021. See Dr. Shah's notes for details. She felt that the patient was over resuscitated with fluids and needed diuresis along with infusion of albumin. She also felt the patient was developing ATN as the patient had an increase in her creatinine from 0.5-1.1 and elevation of BUN from 15-27. At the time of discharge her BUN was still elevated 37 her creatinine was now 0.8. Patient was placed on IV Lasix and on 06/23/2021 it was increased to 40 mg IV every 8 hours and Diuril 500 mg IV every 12 hours was added. Patient was placed on midodrine 5 mg 3 times daily. [facility] transfer center was contacted and although request for transfer was taken up the chain of command through the GI attending Dr. Cook but despite this [facility] said they could not accept their own patient back and I was told by the transfer center that I should consider looking at other tertiary care centers to transfer the patient for urgent ERCP. I reached out to the [facility] and their transfer center was most helpful and although they felt they could not accept the patient in transfer they took it up their chain of command to their medical anthropology director who then communicated with the medical anthropology director at [facility] and was able to obtain acceptance for admission to [facility]. I then received a phone call from the transfer center and spoke with the hospitalist service with Dr. Anthony Bonilla who accepted the patient in transfer. I indicated to Dr. Bonilla, that although the patient was currently in our ICU, she was hemodynamically stable. In fact after the patient had been started on midodrine, her BP in the afternoon had improved to 94/63 from earlier readings in the mid to high 80's. The patient never required vasopressors although we had considered it. The patient's non-occlusive venous thrombosis of her portal/splenic vein confluence was treated w/ her home dose of Apixaban. This was put on hold for this evening dose in anticipation of need for ERCP tomorrow. She did get her morning dose on 06/23/2021. Home Meds and New Rx's Prescriptions: No Action Eliquis 5 mg tablet 5 mg PO BID 0RF Creon 3,000-9,500- 15,000 unit capsule,delayed release(DR/EC) 1 cap PO AC 0RF colestipol 1 gram tablet 1 gm PO ONCE 0RF Rx Instructions: swallow whole tab w/any liquid;do not crush/chew/cut;administer other meds 1hr before/4hr after taking dose ergocalciferol (vitamin D2) 1,250 mcg (50,000 unit) capsule 1,250 mcg PO QWEEK 0RF Gattex 30-Vial 5 mg kit 3.3 mg SC DAILY 0RF Rx Instructions: 0.33 ml daily loperamide [Anti-Diarrheal (loperamide)] 2 mg capsule 2 mg PO Q6H PRN0RF potassium chloride 20 mEq tablet extended release 20 meq PO DAILY 0RF albuterol sulfate [Ventolin HFA] 90 mcg/actuation HFA aerosol inhaler 2 puff IH Q4H PRN0RF levothyroxine 125 MCG tablet 2 tab PO BID 0RF prochlorperazine maleate 5 MG tablet 1 tab PO DAILY 0RF pantoprazole [Protonix] 20 MG tablet,delayed release (DR/EC) 20 mg PO BID 0RF multivitamin Tablet 1 tab PO DAILY 0RF cyanocobalamin (vitamin B-12) [Vitamin B-12] 500 mcg Tablet 1,000 mcg PO DAILY Qty: 0 0RF Mag 64 64 mg Tablet,Delayed Release (Dr/Ec) 64 mg PO BID Qty: 0 0RF levothyroxine 50 mcg Tablet 50 mcg PO BID 0RF fluticasone propion-salmeterol [Advair Diskus] 250-50 mcg/dose Blister With Device 1 inh INHALATION BID PRN0RF cyanocobalamin (vitamin B-12) 1,000 mcg/mL Solution 1,000 mcg IM QMONTH 0RF oxycodone-acetaminophen 5-325 mg tablet 1 tab PO PRN PRN0RF Discharge Instructions Activity:: bedrest Diet:: clear liquid Discharge Orders Discharge Orders: Discharge Order (Routine); Ordered 06/23/21 Ordered By: Leonardo Ness DS: Summary Time Spent with Patient providing and/or coordinating discharge services: Greater than 30 minutes (60) Specific discharge activities: Multiple phone calls to [facility] and to the [facility], discussion with engineering consultant, exam and review of labs Status at Discharge Functional status at discharge: uses cane/walker Overall status at discharge: patient is not back to baseline Mental Status: mental status grossly normal Speech and Movement: speech and movement normal Mood: congruent mood Affect: normal affect Exam Narrative Exam Narrative: Middle-aged female lying in bed semisolid position alert and oriented person place time circumstance. Lungs are clear anteriorly posteriorly she has diminished breath sounds at the bases. Heart is tachycardic but regular with a harsh systolic murmur grade 3/6 over the apex Abdomen is distended but with active bowel sounds rather tense ascites without rebound tenderness or guarding. Lower extremities with 2+ pitting edema of her feet and lower legs Neuro exam grossly intact no focal motor or sensory deficits. No asterixis. Speech is clear and coherent she is alert and oriented person place time circumstance. Psych Mental Status: mental status grossly normal Speech and Movement: speech and movement normal Mood: congruent mood Affect: normal affect DS: Data Vitals/I&O Vitals and I&O: Vital Signs Temperature 37.2 C 06/23/21 11:35 Temperature Source Temporal Artery Scan 06/23/21 11:35 Pulse 115 H 06/23/21 14:20 Pulse Rhythm Regular 06/21/21 10:27 Pulse 114 H 06/23/21 14:20 Respiratory Rate 16 06/23/21 14:20 Respiratory Effort Non-Labored 06/23/21 11:35 Respiratory Depth Normal 06/23/21 11:35 Respiratory Pattern Normal 06/23/21 11:35 Blood Pressure 88/57 L 06/23/21 14:20 Blood Pressure Mean 64 06/23/21 14:20 Blood Pressure Position Supine 06/23/21 11:35 Pulse Oximetry 89 L 06/23/21 14:20 Oxygen Delivery Method Room Air 06/23/21 11:35 Oxygen Flow Rate 0 06/23/21 11:35 Pain Level 4 06/23/21 15:14 Intake & Output 06/22/21 06/23/21 06/23/21 23:59 11:59 23:59 Intake Total 160 / 2300 1341 / 1578 237 / 1578 Output Total 335 / 1085 1400 / 2050 650 / 2050 Balance -175 / 1215 -59 / -472 -413 / -472 Intake: IV 100 / 1900 1111 / 1111 Oral 60 / 400 230 / 467 237 / 467 Output: Urine 335 / 1085 1400 / 2000 600 / 2000 Stool 50 / 50 Other: Urine Color Straw Yellow Yellow Urine Appearance Clear Clear Clear Urine Odor Normal None None Comment mixed with stools mised with stools Stool Occult Blood Negative Stool Size Small Small Stool Characteristics Liquid Liquid Emesis Description None Voiding Methods Bedside Commode Bedside Commode Bedside Commode Incontinent Data Completed and Pending Labs on day of discharge: Labs from last 24 hours 06/23/21 06/23/21 06/23/21 09:11 06:10 06:10 WBC RBC Hgb Hct MCV MCH MCHC RDW Plt Count MPV Immature Gran % Neutrophils % Lymphocytes % Monocytes % Eosinophils % Basophils % Nucleated RBC % Absolute Neutrophils Absolute Lymphocytes Absolute Monocytes Absolute Eosinophils Absolute Basophils RBC Morphology PT 14.3 H INR 1.4 H Sodium 132 L Potassium 3.9 Chloride 98 Carbon Dioxide 24.4 Anion Gap 9.6 BUN 37 H Creatinine 0.8 Estimated GFR/1.73 m2 >= 60.00 Glucose 166 H Calcium 7.7 L Phosphorus 3.6 Magnesium 2.7 H Triglycerides 47 Lipase 1103 H 06/23/21 06/23/21 06:10 06:10 WBC 28.97 H* RBC 2.60 L Hgb 7.4 L Hct 22.9 L MCV 88.1 MCH 28.5 MCHC 32.3 RDW 16.8 H Plt Count 460 H MPV 9.7 Immature Gran % 1.1 Neutrophils % 88.9 Lymphocytes % 2.5 Monocytes % 7.2 Eosinophils % 0.2 Basophils % 0.1 Nucleated RBC % 0 Absolute Neutrophils 25.75 H Absolute Lymphocytes 0.72 L Absolute Monocytes 2.09 H Absolute Eosinophils 0.06 Absolute Basophils 0.03 RBC Morphology Normal PT Cancelled INR Cancelled Sodium Potassium Chloride Carbon Dioxide Anion Gap BUN Creatinine Estimated GFR/1.73 m2 Glucose Calcium Phosphorus Magnesium Triglycerides Lipase Preliminary micro results at discharge 06/19/21 21:08 Body Fluid Culture - Preliminary Cerebrospinal Fluid 06/19/21 19:10 Blood Culture - Preliminary Blood NO GROWTH 72 HOURS 06/19/21 16:18 Blood Culture - Preliminary Blood NO GROWTH 72 HOURS PFSH All Active Problems (Updated 06/21/21 @ 09:41 by Ariana Espana MD) DVT (deep venous thrombosis) (Chronic) Asthma (Chronic) Hypoalbuminemia (Acute) Hypocalcemia (Acute) Hyperglycemia (Acute) LOGAN (acute kidney injury) (Acute) Chronic pancreatitis (Acute) Hyponatremia (Acute) Leukocytosis (Acute) Hypotension (Acute) Pancreatitis (Chronic) Neutropenic fever (Acute) Anemia (Acute) Short gut syndrome (Chronic) Hypomagnesemia (Acute) Pharyngitis (Acute) Medical History (Updated 06/21/21 @ 09:41 by Ariana Espana MD) Cardiac murmur LSB-HOLOSYSTOLIC grade II/ As per PCP note 01/10/15 Diabetes Pt. denies having this: I lost 200lbs and it went away Hx of blood clots Pt. states she had a blood clot in her neck 2013 Hypothyroid Intestinal volvulus Lactic acidosis Short gut syndrome Surgical History History of hysterectomy FOR OVARIAN TUMOR W/BILAT OOPHORECTOMY W/UTERUS REMOVED BUT CERVIX REMAINS Incarcerated hernia s/p bowel resection S/P cholecystectomy Tibial plateau fracture (10/30/18) s/p ORIF on 11/10/2018 Family History Other Cancer Diabetes Heart disease Social History Smoking/Tobacco Use Status: Never Smoking risk assessment performed?: Yes Alcohol Intake: former Drug use: Never Substance use type: does not use Current gender identity: female Do you feel safe at home: Yes Do you feel safe in your relationship?: Yes
--- NOTE | 2021-06-23 18:20 | INDS_ITS ---
Date of service: 06/23/21 PT Notes Visit Reasons: Pancreatitis, Ascites Physical Therapy Inpatient Discharge Summary Date: 06/23/21 Dates of service: 06/21/2021 through 06/23/2021 This is a clinical summary of care provided for the duration of dates listed above. No charge was made in the completion of this documentation. Referring Doctor: Ramón Suero MD PT Orders: PT CONSULT: Eval & Treat Precautions: Fall. Standard. Patient Profile/Admitting Diagnosis:Ja is a 56 yo female presenting to the ER on 06/19/21 for abdominal discomfort and abnormal labs. She reports due to short gut syndrome, she has been experiencing generalized weakness for some time. She is independent with ADLs and gets assist from her as needed. Does not tend to leave the house much. Feeling better today than at time of admission, but still weaker and more easily fatigued than at baseline. PMHX: Neutropenic fever (Acute) Anemia (Acute) Short gut syndrome (Chronic) Lactic acidosis (Acute) Hypomagnesemia (Acute) Pharyngitis (Acute) Diabetes (Chronic) Pt. denies having this: I lost 200lbs and it went away Cardiac murmur LSB-HOLOSYSTOLIC grade II/ Hx of blood clots Pt. states she had a blood clot in her neck 2014 Hypothyroid Intestinal volvulus Surgical History History of hysterectomy FOR OVARIAN TUMOR W/BILAT OOPHORECTOMY W/UTERUS REMOVED BUT CERVIX REMAINS Incarcerated hernia s/p bowel resectionS/P cholecystectomy Tibial plateau fracture (10/30/18) s/p ORIF on 11/10/2018 Social History/Home Situation: Lives with spouse in single level home, 3 [address]. T ends to not leave the home. No use of assistive device. Equipment Owned/DME: Not addressed Subjective: NT. See most recent DISTILLING DEPARTMENT SUPERVISOR notes. Objective:? General Observation: NT. See most recent DISTILLING DEPARTMENT SUPERVISOR notes. Mental Status: NT. See most recent DISTILLING DEPARTMENT SUPERVISOR notes. Pain: NT. See most recent DISTILLING DEPARTMENT SUPERVISOR notes. ROM: Right Upper Extremity: Shoulder Flexion WFL. Shoulder abduction WFL. Elbow flexion WFL. Wrist flexion WFL. Opening and closing of hand WFL. Left Upper Extremity: Shoulder Flexion WFL. Shoulder abduction WFL. Elbow flexion WFL. Wrist flexion WFL. Opening and closing of hand WFL. Right Lower Extremity: Hip flexion WFL. Hip abduction WFL. Knee flexion WFL. Ankle dorsiflexion WFL. Ankle plantarflexion WFL. Left Lower Extremity: Hip flexion WFL. Hip abduction WFL. Knee flexion WFL. Ankle dorsiflexion WFL. Ankle plantarflexion WFL. Strength: Right Upper Extremity: Shoulder flexors 4+/5. Shoulder abductors 4+/5. Elbow flexors 4/5. Elbow extensors 3/5. Left Upper Extremity: Shoulder flexors 4+/5. Shoulder abductors 4/5. Elbow flexors 4/5. Elbow extensors 3/5. Right Lower Extremity: Hip flexors 3/5. Hip abductors 3/5. Knee flexors 4+/5. Knee extensors 5-/5. Ankle dorsiflexors 4+/5. Ankle plantarflexors 4/5. Left Lower Extremity: Hip flexors 3/5. Hip abductors 3/5. Knee flexors 4+/5. Knee extensors 5-/5. Ankle dorsiflexors 4+/5. Ankle plantarflexors 4/5. Sensation:?Intact as to pain and pressure on bilateral lower extremities. Bed Mobility/Transfers: Supine to sit: Supervision, use of rail, self assists legs Sit to supine: Supervision, use of rail, self assists legs Sit to stand: SBA Stand to sit: SBA Gait:?Ambulated 10ft with FWW, CGA Balance:? Static Sitting: Good Dynamic Sitting: Fair Static Standing: Fair Dynamic Standing: Poor Assessment: Patient presents with clinical signs and symptoms consistent with current/admitting diagnoses that have resulted to mobility limitations, gait instability, generalized weakness, and impairment of motor control as demonstra екатерина by the following impairment level findings: 1. Decreased strength to all major muscle groups 2. Impaired sitting/standing balance 3. Impaired activity tolerance Impairments are contributing to the following functional limitations: 1. Decreased bed mobility skills 2. Decreased transfer skills 3. Inability to safely ambulate without assistive device and physical assistance 4. Increase completion time for mobility ADL performance 5. Increased fall risk 6. Inability to negotiate steps alone safely Goals: Goals x1 week 1. Supine-Sit: independent NOT MET 2. Sit-Supine: independent NOT MET 3. Sit-Stand: independent NOT MET 4. Stand-Sit: independent NOT MET 5. Bed-Chair: independent NOT MET 6. Chair-Bed: independent NOT MET 7. Independent gait on level surface with use of least restrictive device for at least 100 feet without report of pain nor dyspnea NOT MET 8. Independent stair negotiation while holding onto bilateral rails for at least 3 steps without report of pain nor dyspnea NOT MET 9. Independent with home exercise program NOT MET 10. Good static and dynamic standing balance/tolerance NOT MET Discharge Plan DISCHARGE RECOMMENDATIONS: Patient needed to be transferred to tertiary hospital for immediate medical intervention. TREATMENT CODE/TIME:?NC Thank you for the opportunity to participate in the care of this patient. Morena Mccracken PT, DPT, CLT [facility] [place], [place]
== END 2021-06-23 17:50 | disposition short-term general hospital (02) | DRG 438 ==
LOC: ER 06-20 00:30 → ICU 06-20 00:59
PROVIDERS: Family Medicine; Student in an Organized Health Care Education/Training Program; Admitting Provider General Practice; Emergency Provider Physician Assistant; PCP Family Medicine; Visit Provider General Practice
DX: K85.90 Acute pancreatitis without necrosis or infection, unspecified (principal); I81 Portal vein thrombosis; N17.0 Acute kidney failure with tubular necrosis; K91.2 Postsurgical malabsorption, not elsewhere classified; E87.1 Hypo-osmolality and hyponatremia; N17.9 Acute kidney failure, unspecified; R18.8 Other ascites; E03.9 Hypothyroidism, unspecified; Z79.01 Long term (current) use of anticoagulants; D53.9 Nutritional anemia, unspecified; J45.909 Unspecified asthma, uncomplicated; Z86.718 Personal history of other venous thrombosis and embolism; R73.9 Hyperglycemia, unspecified; E83.51 Hypocalcemia; I95.9 Hypotension, unspecified; E88.09 Other disorders of plasma-protein metabolism, not elsewhere classified; K86.1 Other chronic pancreatitis; R00.0 Tachycardia, unspecified; R01.1 Cardiac murmur, unspecified
CPT/HCPCS: 36410; 36415; 36592; 49082; 80048; 80053; 82042; 82805; 83690; 85027; 85384; 87040; 87493; 87635; 93005; 94640; 96361; 96374; 96375; 96376; 97110; 97161; 97530; 99285; 71046; 74160; 74174; 81003; 81015; 82150; 83605; 83615; 83735; 84100; 84157; 84478; 84484; 85014; 85018; 85025; 85379; 85610; 87070; 87205; 89051; 93010; 99223; 99233; 99239; 99291; J0131; J0744; J1170; J1940; J1941; J2405; J3010; J3490

== ENCOUNTER 2021-07-14 10:00 | Outpatient (REF) | payer BC, SELFPAY ==
[2021-07-14 12:57] LABS: Abs Immature Grans 0.03 10^3/uL (0.0-0.06); Absolute Eosinophil Count 0.12 10^3/uL (0.0-0.7); Absolute Lymphocyte Count 1.13 10^3/uL (1.2-3.4); Absolute Monocyte Count 0.99 10^3/uL (0.1-0.8); Absolute Neutrophil Count 5.88 10^3/uL (1.2-6.7); Basophils % 1.2; Eosinophils % 1.5; HGB 8.1 g/dL (11.2-15.7); Immature Grans % 0.4; Lymphocytes % 13.7; MCH 27.6 pg (27.0-33.0); MCHC 31.2 % (32.0-36.0); MCV 88.7 fL (80-95); MPV 10.3 fL (8.0-11.0); Neutrophils % 71.2; Platelet Count 429 10^3/uL (130-400); RBC 2.93 10^6/uL (3.93-5.22); RDW 19.8 % (11.7-14.6); RDW-SD 59.6 fL; WBC 8.25 10^3/uL (4.4-10.8)
== END 2021-07-14 10:01 | disposition home or self-care (01) ==
LOC: NCHCN 10:00
PROVIDERS: PCP Family Medicine; Visit Provider Family Medicine
DX: E44.0 Moderate protein-calorie malnutrition (principal)
CPT/HCPCS: 85025

== ENCOUNTER 2021-07-17 09:39 | Outpatient (REF) | payer BC, SELFPAY ==
[2021-07-17 10:57] LABS: HCT 28.3 % (36.0-46.0); HGB 8.9 g/dL (11.2-15.7); MCH 27.8 pg (27.0-33.0); MCHC 31.4 % (32.0-36.0); MCV 88.4 fL (80-95); MPV 10.4 fL (8.0-11.0); Platelet Count 459 10^3/uL (130-400); RDW 20.2 % (11.7-14.6); RDW-SD 65.2 fL; WBC 6.94 10^3/uL (4.4-10.8)
[2021-07-17 11:28] LABS: ALT 55 U/L (14-59); AST 87 U/L (15-37); Albumin 1.8 g/dL (3.4-5.0); Alkaline Phosphatase 145 U/L (46-116); Anion Gap 5.2 mmol/L (3-11); BUN 19 mg/dL (7-18); Bilirubin, Total 0.2 mg/dL (0.2-1.0); CO2 25.8 mmol/L (21.0-32.0); CREATININE 0.5 mg/dL (0.55-1.02); Calcium 7.9 mg/dL (8.5-10.1); Chloride 101 mmol/L (98-107); Glucose 72 mg/dL (74-106); PHOSPHORUS 4.1 mg/dL (2.6-4.7); Potassium 4.6 mmol/L (3.5-5.1); Sodium 132 mmol/L (136-145); Total Protein 7.5 g/dL (6.4-8.2)
[2021-07-17 11:39] LABS: Triglyceride 80 mg/dL (<150)
[2021-07-18 09:51] LABS: Prealbumin 10 mg/dL (20-40)
== END 2021-07-17 09:40 | disposition home or self-care (01) ==
LOC: LBN 09:39
PROVIDERS: PCP Family Medicine; Visit Provider Family Medicine
DX: E44.0 Moderate protein-calorie malnutrition (principal); K91.2 Postsurgical malabsorption, not elsewhere classified
CPT/HCPCS: 80053; 85027; 83735; 84100; 84134; 84478

== ENCOUNTER 2021-07-24 12:44 | Outpatient (REF) | payer BC, SELFPAY ==
[2021-07-24 13:08] LABS: Abs Immature Grans 0.03 10^3/uL (0.0-0.06); Absolute Basophil Count 0.16 10^3/uL (0.0-0.2); Absolute Eosinophil Count 0.32 10^3/uL (0.0-0.7); Absolute Lymphocyte Count 1.61 10^3/uL (1.2-3.4); Absolute Monocyte Count 0.81 10^3/uL (0.1-0.8); Absolute Neutrophil Count 4.31 10^3/uL (1.2-6.7); Basophils % 2.2; Eosinophils % 4.4; HCT 30.5 % (36.0-46.0); HGB 9.7 g/dL (11.2-15.7); Immature Grans % 0.4; Lymphocytes % 22.2; MCH 27.9 pg (27.0-33.0); MCHC 31.8 % (32.0-36.0); MCV 88 fL (80-95); MPV 10.4 fL (8.0-11.0); Monocytes % 11.2; Neutrophils % 59.6; Platelet Count 352 10^3/uL (130-400); RBC 3.48 10^6/uL (3.93-5.22); RDW 18.7 % (11.7-14.6); RDW-SD 59.5 fL; WBC 7.24 10^3/uL (4.4-10.8)
[2021-07-24 13:33] LABS: ALT 87 U/L (14-59); AST 65 U/L (15-37); Albumin 2.4 g/dL (3.4-5.0); Alkaline Phosphatase 154 U/L (46-116); Anion Gap 9.4 mmol/L (3-11); BUN 36 mg/dL (7-18); Bilirubin, Total 0.2 mg/dL (0.2-1.0); CO2 21.6 mmol/L (21.0-32.0); CREATININE 0.5 mg/dL (0.55-1.02); Calcium 8.6 mg/dL (8.5-10.1); Chloride 103 mmol/L (98-107); Glucose 99 mg/dL (74-106); Magnesium 1.9 mg/dL (1.8-2.4); Potassium 4.2 mmol/L (3.5-5.1); Sodium 134 mmol/L (136-145); Total Protein 8.3 g/dL (6.4-8.2); Triglyceride 48 mg/dL (<150)
[2021-07-24 13:46] LABS: PHOSPHORUS 4.3 mg/dL (2.6-4.7)
[2021-07-25 09:49] LABS: Prealbumin 31 mg/dL (20-40)
== END 2021-07-24 12:45 | disposition home or self-care (01) ==
LOC: LBN 12:44
PROVIDERS: PCP Family Medicine; Visit Provider Family Medicine
DX: K91.2 Postsurgical malabsorption, not elsewhere classified (principal); K85.90 Acute pancreatitis without necrosis or infection, unspecified; R79.89 Other specified abnormal findings of blood chemistry
CPT/HCPCS: 80053; 83735; 84100; 84134; 84478; 85025

== ENCOUNTER 2021-07-31 13:23 | Outpatient (REF) | payer BC, SELFPAY ==
[2021-07-31 13:56] LABS: Abs Immature Grans 0.02 10^3/uL (0.0-0.06); Absolute Basophil Count 0.09 10^3/uL (0.0-0.2); Absolute Eosinophil Count 0.23 10^3/uL (0.0-0.7); Absolute Lymphocyte Count 1.35 10^3/uL (1.2-3.4); Absolute Monocyte Count 0.52 10^3/uL (0.1-0.8); Absolute Neutrophil Count 4.91 10^3/uL (1.2-6.7); Basophils % 1.3; Eosinophils % 3.2; HCT 31.6 % (36.0-46.0); HGB 9.9 g/dL (11.2-15.7); Immature Grans % 0.3; MCHC 31.3 % (32.0-36.0); MCV 86 fL (80-95); MPV 11.7 fL (8.0-11.0); Monocytes % 7.3; Neutrophils % 68.9; Platelet Count 267 10^3/uL (130-400); RBC 3.67 10^6/uL (3.93-5.22); RDW-SD 56.7 fL; WBC 7.12 10^3/uL (4.4-10.8)
[2021-07-31 14:19] LABS: ALT 46 U/L (14-59); AST 24 U/L (15-37); Albumin 2.2 g/dL (3.4-5.0); Alkaline Phosphatase 127 U/L (46-116); Anion Gap 7.5 mmol/L (3-11); BUN 34 mg/dL (7-18); Bilirubin, Total 0.2 mg/dL (0.2-1.0); CO2 23.5 mmol/L (21.0-32.0); CREATININE 0.4 mg/dL (0.55-1.02); Calcium 8.6 mg/dL (8.5-10.1); Chloride 105 mmol/L (98-107); Glucose 96 mg/dL (74-106); Magnesium 1.9 mg/dL (1.8-2.4); PHOSPHORUS 4.4 mg/dL (2.6-4.7); Potassium 4.4 mmol/L (3.5-5.1); Sodium 136 mmol/L (136-145); Total Protein 7.7 g/dL (6.4-8.2)
[2021-07-31 14:30] LABS: Triglyceride 45 mg/dL (<150)
[2021-08-01 09:49] LABS: Prealbumin 14 mg/dL (20-40)
== END 2021-07-31 13:24 | disposition home or self-care (01) ==
LOC: LBN 13:23
PROVIDERS: PCP Family Medicine; Visit Provider Family Medicine
DX: E44.0 Moderate protein-calorie malnutrition (principal); Z90.49 Acquired absence of other specified parts of digestive tract
CPT/HCPCS: 80053; 83735; 84100; 84134; 84478; 85025

== ENCOUNTER 2021-08-07 21:35 | Outpatient (REF) | payer BC, SELFPAY ==
[2021-08-07 12:44] LABS: Abs Immature Grans 0.01 10^3/uL (0.0-0.06); Absolute Eosinophil Count 0.34 10^3/uL (0.0-0.7); Absolute Lymphocyte Count 1.52 10^3/uL (1.2-3.4); Absolute Monocyte Count 0.49 10^3/uL (0.1-0.8); Basophils % 1.6; Eosinophils % 5.5; HGB 10.2 g/dL (11.2-15.7); Immature Grans % 0.2; Lymphocytes % 24.7; MCH 26.7 pg (27.0-33.0); MCHC 30.9 % (32.0-36.0); MCV 86 fL (80-95); MPV 11.6 fL (8.0-11.0); Platelet Count 251 10^3/uL (130-400); RBC 3.82 10^6/uL (3.93-5.22); RDW 17.8 % (11.7-14.6); RDW-SD 56.7 fL; WBC 6.16 10^3/uL (4.4-10.8)
[2021-08-07 13:03] LABS: ALT 46 U/L (14-59); AST 31 U/L (15-37); Albumin 2.4 g/dL (3.4-5.0); Alkaline Phosphatase 135 U/L (46-116); Anion Gap 9.9 mmol/L (3-11); BUN 29 mg/dL (7-18); Bilirubin, Total 0.2 mg/dL (0.2-1.0); CO2 21.1 mmol/L (21.0-32.0); CREATININE 0.5 mg/dL (0.55-1.02); Calcium 8.4 mg/dL (8.5-10.1); Chloride 104 mmol/L (98-107); Glucose 95 mg/dL (74-106); Magnesium 1.8 mg/dL (1.8-2.4); PHOSPHORUS 4.1 mg/dL (2.6-4.7); Potassium 4.2 mmol/L (3.5-5.1); Sodium 135 mmol/L (136-145); Total Protein 7.3 g/dL (6.4-8.2)
[2021-08-07 13:18] LABS: Triglyceride 58 mg/dL (<150)
[2021-08-08 09:45] LABS: Prealbumin 16 mg/dL (20-40)
== END 2021-08-07 21:36 | disposition home or self-care (01) ==
LOC: LBN 21:35
PROVIDERS: PCP Family Medicine; Visit Provider Family Medicine
DX: D64.9 Anemia, unspecified (principal); E44.0 Moderate protein-calorie malnutrition
CPT/HCPCS: 80053; 83735; 84100; 84134; 84478; 85025

== ENCOUNTER 2021-08-14 13:26 | Outpatient (REF) | payer BC, SELFPAY ==
[2021-08-14 14:12] LABS: Abs Immature Grans 0.02 10^3/uL (0.0-0.06); Absolute Basophil Count 0.12 10^3/uL (0.0-0.2); Absolute Eosinophil Count 0.42 10^3/uL (0.0-0.7); Absolute Lymphocyte Count 1.54 10^3/uL (1.2-3.4); Absolute Monocyte Count 0.64 10^3/uL (0.1-0.8); Absolute Neutrophil Count 4.31 10^3/uL (1.2-6.7); Basophils % 1.7; HCT 32.1 % (36.0-46.0); Immature Grans % 0.3; Lymphocytes % 21.8; MCH 26.7 pg (27.0-33.0); MCHC 31.2 % (32.0-36.0); MCV 86 fL (80-95); MPV 11.7 fL (8.0-11.0); Monocytes % 9.1; Neutrophils % 61.1; Platelet Count 228 10^3/uL (130-400); RBC 3.75 10^6/uL (3.93-5.22); RDW 17.9 % (11.7-14.6); RDW-SD 55.8 fL; WBC 7.05 10^3/uL (4.4-10.8)
[2021-08-14 14:21] LABS: ALT 54 U/L (14-59); AST 32 U/L (15-37); Albumin 2.4 g/dL (3.4-5.0); Alkaline Phosphatase 142 U/L (46-116); Anion Gap 8.8 mmol/L (3-11); BUN 28 mg/dL (7-18); Bilirubin, Total 0.2 mg/dL (0.2-1.0); CO2 23.2 mmol/L (21.0-32.0); CREATININE 0.5 mg/dL (0.55-1.02); Calcium 8.4 mg/dL (8.5-10.1); Chloride 104 mmol/L (98-107); Glucose 90 mg/dL (74-106); Magnesium 1.5 mg/dL (1.8-2.4); PHOSPHORUS 3.5 mg/dL (2.6-4.7); Potassium 4.1 mmol/L (3.5-5.1); Sodium 136 mmol/L (136-145); Total Protein 6.8 g/dL (6.4-8.2)
[2021-08-14 16:07] LABS: Triglyceride 48 mg/dL (<150)
[2021-08-15 09:30] LABS: Prealbumin 13 mg/dL (20-40)
== END 2021-08-14 13:27 | disposition home or self-care (01) ==
LOC: LBN 13:26
PROVIDERS: PCP Family Medicine; Visit Provider Family Medicine
DX: E44.0 Moderate protein-calorie malnutrition (principal); K91.2 Postsurgical malabsorption, not elsewhere classified; K85.90 Acute pancreatitis without necrosis or infection, unspecified
CPT/HCPCS: 80053; 83735; 84100; 84134; 84478; 85025

== ENCOUNTER 2021-08-21 13:46 | Outpatient (REF) | payer BC, SELFPAY ==
[2021-08-21 13:54] LABS: Abs Immature Grans 0.03 10^3/uL (0.0-0.06); Absolute Basophil Count 0.09 10^3/uL (0.0-0.2); Absolute Eosinophil Count 0.34 10^3/uL (0.0-0.7); Absolute Lymphocyte Count 1.69 10^3/uL (1.2-3.4); Absolute Monocyte Count 0.76 10^3/uL (0.1-0.8); Basophils % 1.2; Eosinophils % 4.5; HCT 31.3 % (36.0-46.0); HGB 9.9 g/dL (11.2-15.7); Immature Grans % 0.4; Lymphocytes % 22.5; MCH 26.6 pg (27.0-33.0); MCHC 31.6 % (32.0-36.0); MCV 84 fL (80-95); MPV 11.5 fL (8.0-11.0); Monocytes % 10.1; Neutrophils % 61.3; Platelet Count 245 10^3/uL (130-400); RBC 3.72 10^6/uL (3.93-5.22); RDW 17.8 % (11.7-14.6); RDW-SD 54.7 fL; WBC 7.51 10^3/uL (4.4-10.8)
[2021-08-21 14:10] LABS: ALT 66 U/L (14-59); AST 39 U/L (15-37); Albumin 2.3 g/dL (3.4-5.0); Alkaline Phosphatase 171 U/L (46-116); BUN 25 mg/dL (7-18); Bilirubin, Total 0.2 mg/dL (0.2-1.0); CREATININE 0.5 mg/dL (0.55-1.02); Calcium 8.3 mg/dL (8.5-10.1); Chloride 100 mmol/L (98-107); Glucose 83 mg/dL (74-106); Magnesium 1.8 mg/dL (1.8-2.4); Potassium 3.9 mmol/L (3.5-5.1); Sodium 136 mmol/L (136-145); Triglyceride 43 mg/dL (<150)
[2021-08-21 14:23] LABS: PHOSPHORUS 3.9 mg/dL (2.6-4.7)
== END 2021-08-21 13:47 | disposition home or self-care (01) ==
LOC: LBN 13:46
PROVIDERS: PCP Family Medicine; Visit Provider Family Medicine
DX: K85.90 Acute pancreatitis without necrosis or infection, unspecified (principal)
CPT/HCPCS: 80053; 83735; 84100; 84478; 85025

== ENCOUNTER 2021-08-28 12:55 | Outpatient (REF) | payer BC, SELFPAY ==
[2021-08-28 14:39] LABS: Abs Immature Grans 0.03 10^3/uL (0.0-0.06); Absolute Basophil Count 0.06 10^3/uL (0.0-0.2); Absolute Eosinophil Count 0.16 10^3/uL (0.0-0.7); Absolute Lymphocyte Count 1.12 10^3/uL (1.2-3.4); Absolute Monocyte Count 1.13 10^3/uL (0.1-0.8); Absolute Neutrophil Count 4.76 10^3/uL (1.2-6.7); Basophils % 0.8; Eosinophils % 2.2; HCT 31.2 % (36.0-46.0); HGB 10.2 g/dL (11.2-15.7); Immature Grans % 0.4; Lymphocytes % 15.4; MCH 27.3 pg (27.0-33.0); MCHC 32.7 % (32.0-36.0); MCV 83 fL (80-95); MPV 11.5 fL (8.0-11.0); Monocytes % 15.6; Neutrophils % 65.6; Platelet Count 264 10^3/uL (130-400); RBC 3.74 10^6/uL (3.93-5.22); RDW 17.4 % (11.7-14.6); RDW-SD 53.8 fL; WBC 7.26 10^3/uL (4.4-10.8)
[2021-08-28 17:04] LABS: ALT 55 U/L (14-59); AST 26 U/L (15-37); Albumin 2.3 g/dL (3.4-5.0); Alkaline Phosphatase 179 U/L (46-116); Anion Gap 10.9 mmol/L (3-11); BUN 24 mg/dL (7-18); Bilirubin, Total 0.3 mg/dL (0.2-1.0); CO2 25.1 mmol/L (21.0-32.0); CREATININE 0.5 mg/dL (0.55-1.02); Calcium 8.1 mg/dL (8.5-10.1); Chloride 102 mmol/L (98-107); Glucose 103 mg/dL (74-106); Magnesium 1.8 mg/dL (1.8-2.4); Potassium 4.5 mmol/L (3.5-5.1); Sodium 138 mmol/L (136-145); Total Protein 6.5 g/dL (6.4-8.2); Triglyceride 44 mg/dL (<150)
[2021-08-28 17:14] LABS: PHOSPHORUS 4.3 mg/dL (2.6-4.7)
[2021-08-29 09:08] LABS: Prealbumin 11 mg/dL (20-40)
== END 2021-08-28 12:56 | disposition home or self-care (01) ==
LOC: LBN 12:55
PROVIDERS: PCP Family Medicine; Visit Provider Family Medicine
DX: E44.0 Moderate protein-calorie malnutrition (principal); K85.90 Acute pancreatitis without necrosis or infection, unspecified; D64.9 Anemia, unspecified
CPT/HCPCS: 80053; 83735; 84100; 84134; 84478; 85025

== ENCOUNTER 2021-09-04 16:45 | Outpatient (REF) | payer BC, SELFPAY ==
[2021-09-04 14:55] LABS: Abs Immature Grans 0.03 10^3/uL (0.0-0.06); Absolute Basophil Count 0.11 10^3/uL (0.0-0.2); Absolute Eosinophil Count 0.19 10^3/uL (0.0-0.7); Absolute Neutrophil Count 4.31 10^3/uL (1.2-6.7); Basophils % 1.6; Eosinophils % 2.8; HCT 32.3 % (36.0-46.0); HGB 10.4 g/dL (11.2-15.7); Immature Grans % 0.4; Lymphocytes % 22.3; MCH 26.9 pg (27.0-33.0); MCHC 32.2 % (32.0-36.0); MCV 84 fL (80-95); MPV 10.4 fL (8.0-11.0); Monocytes % 8.9; Platelet Count 334 10^3/uL (130-400); RBC 3.87 10^6/uL (3.93-5.22); RDW 17.1 % (11.7-14.6); RDW-SD 52.2 fL; WBC 6.74 10^3/uL (4.4-10.8)
[2021-09-04 15:48] LABS: ALT 89 U/L (14-59); AST 44 U/L (15-37); Albumin 2.6 g/dL (3.4-5.0); Alkaline Phosphatase 209 U/L (46-116); BUN 28 mg/dL (7-18); Bilirubin, Total 0.2 mg/dL (0.2-1.0); CREATININE 0.5 mg/dL (0.55-1.02); Calcium 8.5 mg/dL (8.5-10.1); Chloride 106 mmol/L (98-107); Glucose 101 mg/dL (74-106); Magnesium 1.9 mg/dL (1.8-2.4); PHOSPHORUS 4.1 mg/dL (2.6-4.7); Potassium 4.3 mmol/L (3.5-5.1); Sodium 140 mmol/L (136-145); Total Protein 7.1 g/dL (6.4-8.2)
[2021-09-04 16:12] LABS: Triglyceride 62 mg/dL (<150)
[2021-09-05 09:45] LABS: Prealbumin 17 mg/dL (20-40)
== END 2021-09-04 16:46 | disposition home or self-care (01) ==
LOC: NCHCN 16:45
PROVIDERS: PCP Family Medicine; Visit Provider Family Medicine
DX: K91.2 Postsurgical malabsorption, not elsewhere classified (principal); E44.0 Moderate protein-calorie malnutrition
CPT/HCPCS: 80053; 83735; 84100; 84134; 84478; 85025

== ENCOUNTER 2021-09-11 02:16 | Outpatient (RCR) | payer BC, SELFPAY ==
[2021-09-11] MEDS: Normal Saline Flush 10 ML SYR IVP (10:19)
[2021-09-11] MEDS: Heparin 500 UNITS/5 ML SYRINGE IV (10:19)
[2021-09-11 11:04] LABS: HCT 33.9 % (36.0-46.0); HGB 10.9 g/dL (11.2-15.7); MCHC 32.2 % (32.0-36.0); MCV 84 fL (80-95); MPV 10.6 fL (8.0-11.0); Platelet Count 300 10^3/uL (130-400); RBC 4.04 10^6/uL (3.93-5.22); RDW 16.8 % (11.7-14.6); RDW-SD 52.1 fL; WBC 6.04 10^3/uL (4.4-10.8)
[2021-09-11 11:12] LABS: ALT 79 U/L (14-59); AST 44 U/L (15-37); Albumin 2.7 g/dL (3.4-5.0); Alkaline Phosphatase 221 U/L (46-116); Anion Gap 7.2 mmol/L (3-11); BUN 29 mg/dL (7-18); Bilirubin, Total 0.3 mg/dL (0.2-1.0); CO2 28.8 mmol/L (21.0-32.0); CREATININE 0.5 mg/dL (0.55-1.02); Calcium 8.7 mg/dL (8.5-10.1); Chloride 97 mmol/L (98-107); Glucose 109 mg/dL (74-106); Magnesium 1.9 mg/dL (1.8-2.4); PHOSPHORUS 3.9 mg/dL (2.6-4.7); Potassium 4.3 mmol/L (3.5-5.1); Sodium 133 mmol/L (136-145); Total Protein 7.9 g/dL (6.4-8.2)
[2021-09-11 15:31] LABS: Iron 39 ug/dL (50-170); Total Iron Binding Capacity 240 ug/dL (250-450); Transferrin Sat 16 % (15-50)
[2021-09-11 16:04] LABS: Triglyceride 68 mg/dL (<150)
[2021-09-11 16:07] LABS: Vitamin D 25 Total 8.4 ng/mL (30-100)
[2021-09-12 09:19] LABS: Prealbumin 16 mg/dL (20-40)
[2021-09-12 14:47] LABS: Copper, Serum 0.93 mcg/mL (0.75-1.45); Selenium, Serum 104 ng/mL (70-150)
[2021-09-12 15:16] LABS: Zinc, Serum 1.21 mcg/mL (0.66-1.10)
[2021-09-13 09:07] LABS: Free Retinol (Vitamin A) 30.4 mcg/dL (32.5-78.0)
[2021-09-13 21:55] LABS: Vitamin E, Serum 7.8 mg/L (5.5 - 17.0)
[2021-09-19 17:16] LABS: Manganese, Serum 0.7 ng/mL (0.5-1.2)
== END 2021-09-21 23:59 | disposition home or self-care (01) ==
LOC: INF 02:16
PROVIDERS: PCP Family Medicine; Visit Provider Internal Medicine Gastroenterology
DX: E61.0 Copper deficiency (principal); D50.9 Iron deficiency anemia, unspecified; K91.2 Postsurgical malabsorption, not elsewhere classified; K86.89 Other specified diseases of pancreas; E55.9 Vitamin D deficiency, unspecified; Z78.9 Other specified health status; E43 Unspecified severe protein-calorie malnutrition; D51.3 Other dietary vitamin B12 deficiency anemia; E60 Dietary zinc deficiency; Z45.2 Encounter for adjustment and management of vascular access device
CPT/HCPCS: 36591; 80053; 82306; 85027; 82525; 83540; 83550; 83735; 83785; 84100; 84134; 84255; 84446; 84478; 84590; 84630

== ENCOUNTER 2021-09-18 13:39 | Outpatient (REF) | payer BC, SELFPAY ==
[2021-09-18 14:24] LABS: Abs Immature Grans 0.01 10^3/uL (0.0-0.06); Absolute Lymphocyte Count 1.62 10^3/uL (1.2-3.4); Absolute Monocyte Count 0.59 10^3/uL (0.1-0.8); Absolute Neutrophil Count 3.16 10^3/uL (1.2-6.7); Basophils % 1.7; Eosinophils % 5.2; HCT 33.2 % (36.0-46.0); HGB 10.5 g/dL (11.2-15.7); Immature Grans % 0.2; MCH 27.2 pg (27.0-33.0); MCHC 31.6 % (32.0-36.0); MCV 86 fL (80-95); MPV 11.1 fL (8.0-11.0); Monocytes % 10.2; Neutrophils % 54.7; Platelet Count 214 10^3/uL (130-400); RBC 3.86 10^6/uL (3.93-5.22); RDW 16.8 % (11.7-14.6); RDW-SD 53.2 fL; WBC 5.78 10^3/uL (4.4-10.8)
[2021-09-18 14:34] LABS: ALT 51 U/L (14-59); AST 30 U/L (15-37); Albumin 2.6 g/dL (3.4-5.0); Alkaline Phosphatase 177 U/L (46-116); Anion Gap 5.9 mmol/L (3-11); BUN 29 mg/dL (7-18); Bilirubin, Total 0.2 mg/dL (0.2-1.0); CO2 29.1 mmol/L (21.0-32.0); CREATININE 0.5 mg/dL (0.55-1.02); Calcium 8.3 mg/dL (8.5-10.1); Chloride 101 mmol/L (98-107); Glucose 94 mg/dL (74-106); Magnesium 1.9 mg/dL (1.8-2.4); Potassium 4.3 mmol/L (3.5-5.1); Sodium 136 mmol/L (136-145); Total Protein 6.7 g/dL (6.4-8.2); Triglyceride 60 mg/dL (<150)
[2021-09-19 09:31] LABS: Prealbumin 14 mg/dL (20-40)
== END 2021-09-18 13:40 | disposition home or self-care (01) ==
LOC: NCHCN 13:39
PROVIDERS: PCP Family Medicine; Visit Provider Family Medicine
DX: K85.90 Acute pancreatitis without necrosis or infection, unspecified (principal); K91.2 Postsurgical malabsorption, not elsewhere classified; D64.9 Anemia, unspecified
CPT/HCPCS: 80053; 83735; 84100; 84134; 84478; 85025

== ENCOUNTER 2021-09-25 12:40 | Outpatient (REF) | payer BC, SELFPAY ==
[2021-09-25 12:51] LABS: Abs Immature Grans 0.01 10^3/uL (0.0-0.06); Absolute Eosinophil Count 0.36 10^3/uL (0.0-0.7); Absolute Lymphocyte Count 1.76 10^3/uL (1.2-3.4); Absolute Monocyte Count 0.71 10^3/uL (0.1-0.8); Absolute Neutrophil Count 4.13 10^3/uL (1.2-6.7); Basophils % 1.4; Eosinophils % 5.1; HCT 35.4 % (36.0-46.0); HGB 10.8 g/dL (11.2-15.7); Immature Grans % 0.1; Lymphocytes % 24.9; MCH 26.5 pg (27.0-33.0); MCHC 30.5 % (32.0-36.0); MCV 87 fL (80-95); Neutrophils % 58.5; Platelet Count 246 10^3/uL (130-400); RBC 4.07 10^6/uL (3.93-5.22); RDW 16.7 % (11.7-14.6); RDW-SD 53.5 fL; WBC 7.07 10^3/uL (4.4-10.8)
[2021-09-25 13:06] LABS: ALT 42 U/L (14-59); AST 32 U/L (15-37); Albumin 2.7 g/dL (3.4-5.0); Alkaline Phosphatase 180 U/L (46-116); Anion Gap 10.4 mmol/L (3-11); BUN 25 mg/dL (7-18); Bilirubin, Total 0.3 mg/dL (0.2-1.0); CO2 23.6 mmol/L (21.0-32.0); CREATININE 0.4 mg/dL (0.55-1.02); Calcium 8.2 mg/dL (8.5-10.1); Chloride 104 mmol/L (98-107); Glucose 126 mg/dL (74-106); Magnesium 1.6 mg/dL (1.8-2.4); Potassium 3.9 mmol/L (3.5-5.1); Sodium 138 mmol/L (136-145); Total Protein 6.9 g/dL (6.4-8.2); Triglyceride 52 mg/dL (<150)
[2021-09-25 13:20] LABS: PHOSPHORUS 3.6 mg/dL (2.6-4.7)
[2021-09-27 10:57] LABS: Prealbumin 14 mg/dL (20-40)
== END 2021-09-25 12:41 | disposition home or self-care (01) ==
LOC: LBN 12:40
PROVIDERS: PCP Family Medicine; Visit Provider Family Medicine
DX: E44.0 Moderate protein-calorie malnutrition (principal); K91.2 Postsurgical malabsorption, not elsewhere classified; K85.90 Acute pancreatitis without necrosis or infection, unspecified
CPT/HCPCS: 80053; 83735; 84100; 84134; 84478; 85025

== ENCOUNTER 2021-10-02 12:52 | Outpatient (REF) | payer BC, SELFPAY ==
[2021-10-02 12:29] LABS: Abs Immature Grans 0.02 10^3/uL (0.0-0.06); Absolute Basophil Count 0.11 10^3/uL (0.0-0.2); Absolute Eosinophil Count 0.24 10^3/uL (0.0-0.7); Absolute Monocyte Count 1.04 10^3/uL (0.1-0.8); Absolute Neutrophil Count 4.24 10^3/uL (1.2-6.7); Basophils % 1.5; Eosinophils % 3.3; HGB 10.3 g/dL (11.2-15.7); Immature Grans % 0.3; Lymphocytes % 23.1; MCH 26.8 pg (27.0-33.0); MCHC 31.2 % (32.0-36.0); MCV 86 fL (80-95); MPV 10.8 fL (8.0-11.0); Monocytes % 14.1; Neutrophils % 57.7; Platelet Count 252 10^3/uL (130-400); RBC 3.85 10^6/uL (3.93-5.22); RDW 16.1 % (11.7-14.6); RDW-SD 50.1 fL; WBC 7.35 10^3/uL (4.4-10.8)
[2021-10-02 13:31] LABS: ALT 40 U/L (14-59); AST 24 U/L (15-37); Albumin 2.5 g/dL (3.4-5.0); Alkaline Phosphatase 163 U/L (46-116); Anion Gap 10.5 mmol/L (3-11); BUN 28 mg/dL (7-18); Bilirubin, Total 0.3 mg/dL (0.2-1.0); CO2 27.5 mmol/L (21.0-32.0); CREATININE 0.4 mg/dL (0.55-1.02); Calcium 8.2 mg/dL (8.5-10.1); Chloride 103 mmol/L (98-107); Glucose 111 mg/dL (74-106); Magnesium 1.7 mg/dL (1.8-2.4); Potassium 4.2 mmol/L (3.5-5.1); Sodium 141 mmol/L (136-145); Total Protein 6.7 g/dL (6.4-8.2); Triglyceride 37 mg/dL (<150)
[2021-10-02 13:43] LABS: PHOSPHORUS 3.9 mg/dL (2.6-4.7)
[2021-10-03 09:00] LABS: Prealbumin 10 mg/dL (20-40)
== END 2021-10-02 12:53 | disposition home or self-care (01) ==
LOC: LBN 12:52
PROVIDERS: PCP Family Medicine; Visit Provider Family Medicine
DX: E44.0 Moderate protein-calorie malnutrition (principal); K85.90 Acute pancreatitis without necrosis or infection, unspecified
CPT/HCPCS: 80053; 83735; 84100; 84134; 84478; 85025

== ENCOUNTER 2021-10-09 18:00 | Outpatient (REF) | payer BC, SELFPAY ==
[2021-10-09 12:45] LABS: Abs Immature Grans 0.01 10^3/uL (0.0-0.06); Absolute Basophil Count 0.11 10^3/uL (0.0-0.2); Absolute Eosinophil Count 0.27 10^3/uL (0.0-0.7); Absolute Lymphocyte Count 1.76 10^3/uL (1.2-3.4); Absolute Monocyte Count 0.59 10^3/uL (0.1-0.8); Absolute Neutrophil Count 3.13 10^3/uL (1.2-6.7); Basophils % 1.9; Eosinophils % 4.6; HCT 33.4 % (36.0-46.0); HGB 10.7 g/dL (11.2-15.7); Immature Grans % 0.2; MCH 26.6 pg (27.0-33.0); MCV 83 fL (80-95); MPV 10.8 fL (8.0-11.0); Monocytes % 10.1; Neutrophils % 53.2; Platelet Count 335 10^3/uL (130-400); RBC 4.03 10^6/uL (3.93-5.22); RDW 15.3 % (11.7-14.6); RDW-SD 46.2 fL; WBC 5.87 10^3/uL (4.4-10.8)
[2021-10-09 13:14] LABS: ALT 47 U/L (14-59); AST 30 U/L (15-37); Albumin 2.4 g/dL (3.4-5.0); Alkaline Phosphatase 172 U/L (46-116); BUN 27 mg/dL (7-18); Bilirubin, Total 0.2 mg/dL (0.2-1.0); CREATININE 0.5 mg/dL (0.55-1.02); Calcium 8.4 mg/dL (8.5-10.1); Chloride 100 mmol/L (98-107); Glucose 113 mg/dL (74-106); Magnesium 1.8 mg/dL (1.8-2.4); PHOSPHORUS 3.8 mg/dL (2.6-4.7); Potassium 4.4 mmol/L (3.5-5.1); Sodium 136 mmol/L (136-145); Total Protein 6.9 g/dL (6.4-8.2)
[2021-10-09 14:56] LABS: Triglyceride 42 mg/dL (<150)
[2021-10-10 09:47] LABS: Prealbumin 11 mg/dL (20-40)
== END 2021-10-09 18:01 | disposition home or self-care (01) ==
LOC: LBN 18:00
PROVIDERS: PCP Family Medicine; Visit Provider Family Medicine
DX: K91.2 Postsurgical malabsorption, not elsewhere classified (principal); R62.7 Adult failure to thrive
CPT/HCPCS: 80053; 83735; 84100; 84134; 84478; 85025

== ENCOUNTER 2021-10-16 12:06 | Outpatient (REF) | payer BC, SELFPAY ==
[2021-10-16 13:10] LABS: Abs Immature Grans 0.02 10^3/uL (0.0-0.06); Absolute Eosinophil Count 0.24 10^3/uL (0.0-0.7); Absolute Lymphocyte Count 1.89 10^3/uL (1.2-3.4); Absolute Neutrophil Count 3.11 10^3/uL (1.2-6.7); Basophils % 1.7; HCT 33.6 % (36.0-46.0); HGB 10.7 g/dL (11.2-15.7); Immature Grans % 0.3; Lymphocytes % 31.7; MCH 26.9 pg (27.0-33.0); MCHC 31.8 % (32.0-36.0); MCV 84 fL (80-95); MPV 10.8 fL (8.0-11.0); Monocytes % 10.1; Neutrophils % 52.2; Platelet Count 267 10^3/uL (130-400); RBC 3.98 10^6/uL (3.93-5.22); RDW 15.9 % (11.7-14.6); RDW-SD 48.5 fL; WBC 5.96 10^3/uL (4.4-10.8)
[2021-10-16 13:32] LABS: ALT 64 U/L (14-59); AST 25 U/L (15-37); Albumin 2.6 g/dL (3.4-5.0); Alkaline Phosphatase 180 U/L (46-116); BUN 33 mg/dL (7-18); Bilirubin, Total 0.2 mg/dL (0.2-1.0); CREATININE 0.5 mg/dL (0.55-1.02); Calcium 8.6 mg/dL (8.5-10.1); Chloride 105 mmol/L (98-107); Glucose 98 mg/dL (74-106); Magnesium 1.8 mg/dL (1.8-2.4); PHOSPHORUS 4.2 mg/dL (2.6-4.7); Potassium 4.5 mmol/L (3.5-5.1); Sodium 140 mmol/L (136-145); Total Protein 6.8 g/dL (6.4-8.2)
[2021-10-16 13:46] LABS: Triglyceride 53 mg/dL (<150)
[2021-10-17 10:18] LABS: Prealbumin 16 mg/dL (20-40)
== END 2021-10-16 12:07 | disposition home or self-care (01) ==
LOC: LBN 12:06
PROVIDERS: PCP Family Medicine; Visit Provider Internal Medicine Gastroenterology
DX: K85.90 Acute pancreatitis without necrosis or infection, unspecified (principal); D64.9 Anemia, unspecified; K91.2 Postsurgical malabsorption, not elsewhere classified; E44.0 Moderate protein-calorie malnutrition
CPT/HCPCS: 80053; 83735; 84100; 84134; 84478; 85025

== ENCOUNTER 2021-10-23 11:35 | Outpatient (REF) | payer BC, SELFPAY ==
[2021-10-23 16:11] LABS: Abs Immature Grans 0.02 10^3/uL (0.0-0.06); Absolute Lymphocyte Count 2.17 10^3/uL (1.2-3.4); Absolute Neutrophil Count 3.24 10^3/uL (1.2-6.7); Basophils % 1.6; Eosinophils % 3.1; HCT 34.5 % (36.0-46.0); HGB 11.1 g/dL (11.2-15.7); Immature Grans % 0.3; Lymphocytes % 33.7; MCH 27.1 pg (27.0-33.0); MCHC 32.2 % (32.0-36.0); MCV 84 fL (80-95); MPV 11.8 fL (8.0-11.0); Monocytes % 10.9; Neutrophils % 50.4; Platelet Count 218 10^3/uL (130-400); RDW 16.8 % (11.7-14.6); RDW-SD 51.4 fL; WBC 6.43 10^3/uL (4.4-10.8)
[2021-10-23 16:37] LABS: ALT 51 U/L (14-59); AST 30 U/L (15-37); Albumin 2.6 g/dL (3.4-5.0); Alkaline Phosphatase 175 U/L (46-116); Anion Gap 8.7 mmol/L (3-11); BUN 29 mg/dL (7-18); Bilirubin, Total 0.2 mg/dL (0.2-1.0); CO2 25.3 mmol/L (21.0-32.0); CREATININE 0.6 mg/dL (0.55-1.02); Calcium 8.3 mg/dL (8.5-10.1); Chloride 105 mmol/L (98-107); Glucose 108 mg/dL (74-106); Magnesium 1.6 mg/dL (1.8-2.4); Potassium 4.5 mmol/L (3.5-5.1); Sodium 139 mmol/L (136-145); Total Protein 6.5 g/dL (6.4-8.2); Triglyceride 56 mg/dL (<150)
[2021-10-23 16:48] LABS: PHOSPHORUS 4.1 mg/dL (2.6-4.7)
[2021-10-24 09:34] LABS: Prealbumin 16 mg/dL (20-40)
== END 2021-10-23 11:36 | disposition home or self-care (01) ==
LOC: LBN 11:35
PROVIDERS: PCP Family Medicine; Visit Provider Family Medicine
DX: K91.2 Postsurgical malabsorption, not elsewhere classified (principal); E44.0 Moderate protein-calorie malnutrition; K85.90 Acute pancreatitis without necrosis or infection, unspecified; D64.9 Anemia, unspecified
CPT/HCPCS: 80053; 83735; 84100; 84134; 84478; 85025

== ENCOUNTER 2021-10-30 03:29 | Outpatient (RCR) | payer BC, SELFPAY ==
[2021-10-30] MEDS: Normal Saline Flush 10 ML SYR IVP (09:15)
[2021-10-30] MEDS: Heparin 500 UNITS/5 ML SYRINGE (09:15)
[2021-10-30 09:30] LABS: HCT 36.1 % (36.0-46.0); MCH 27.1 pg (27.0-33.0); MCHC 33.2 % (32.0-36.0); MCV 82 fL (80-95); MPV 11.1 fL (8.0-11.0); Platelet Count 210 10^3/uL (130-400); RBC 4.42 10^6/uL (3.93-5.22); RDW 16.9 % (11.7-14.6); RDW-SD 50.3 fL; WBC 5.84 10^3/uL (4.4-10.8)
[2021-10-30 09:52] LABS: ALT 55 U/L (14-59); AST 35 U/L (15-37); Albumin 2.8 g/dL (3.4-5.0); Alkaline Phosphatase 184 U/L (46-116); Anion Gap 7.8 mmol/L (3-11); BUN 29 mg/dL (7-18); Bilirubin, Total 0.5 mg/dL (0.2-1.0); CO2 28.2 mmol/L (21.0-32.0); CREATININE 0.5 mg/dL (0.55-1.02); Calcium 8.6 mg/dL (8.5-10.1); Chloride 102 mmol/L (98-107); Glucose 104 mg/dL (74-106); Magnesium 1.8 mg/dL (1.8-2.4); PHOSPHORUS 3.9 mg/dL (2.6-4.7); Potassium 4.3 mmol/L (3.5-5.1); Sodium 138 mmol/L (136-145); Total Protein 7.5 g/dL (6.4-8.2)
[2021-10-30 10:04] LABS: Triglyceride 56 mg/dL (<150)
[2021-10-31 10:04] LABS: Prealbumin 18 mg/dL (20-40)
== END 2021-11-22 23:59 | disposition home or self-care (01) ==
LOC: INF 03:29
PROVIDERS: PCP Family Medicine; Visit Provider Internal Medicine Gastroenterology
DX: Z45.2 Encounter for adjustment and management of vascular access device (principal); Z78.9 Other specified health status; K91.2 Postsurgical malabsorption, not elsewhere classified; E43 Unspecified severe protein-calorie malnutrition
CPT/HCPCS: 36591; 80053; 85027; 96523; 83735; 84100; 84134; 84478

== ENCOUNTER 2021-11-06 18:48 | Outpatient (REF) | payer BC, SELFPAY ==
[2021-11-06 13:18] LABS: HCT 34.1 % (36.0-46.0); HGB 11.1 g/dL (11.2-15.7); MCH 27.5 pg (27.0-33.0); MCHC 32.6 % (32.0-36.0); MCV 84 fL (80-95); MPV 11.2 fL (8.0-11.0); Platelet Count 220 10^3/uL (130-400); RBC 4.04 10^6/uL (3.93-5.22); RDW 17.4 % (11.7-14.6); RDW-SD 53.3 fL; WBC 6.14 10^3/uL (4.4-10.8)
[2021-11-06 13:26] LABS: ALT 81 U/L (14-59); AST 43 U/L (15-37); Albumin 2.7 g/dL (3.4-5.0); Alkaline Phosphatase 187 U/L (46-116); BUN 27 mg/dL (7-18); Bilirubin, Total 0.3 mg/dL (0.2-1.0); CREATININE 0.4 mg/dL (0.55-1.02); Calcium 8.5 mg/dL (8.5-10.1); Chloride 105 mmol/L (98-107); Glucose 114 mg/dL (74-106); Magnesium 1.8 mg/dL (1.8-2.4); Potassium 4.3 mmol/L (3.5-5.1); Sodium 142 mmol/L (136-145); Total Protein 6.9 g/dL (6.4-8.2); Triglyceride 53 mg/dL (<150)
[2021-11-06 13:35] LABS: PHOSPHORUS 4.3 mg/dL (2.6-4.7)
[2021-11-07 09:55] LABS: Prealbumin 17 mg/dL (20-40)
== END 2021-11-06 18:49 | disposition home or self-care (01) ==
LOC: LBN 18:48
PROVIDERS: PCP Family Medicine; Visit Provider Family Medicine
DX: Z51.81 Encounter for therapeutic drug level monitoring (principal); Z79.899 Other long term (current) drug therapy
CPT/HCPCS: 80053; 85027; 83735; 84100; 84134; 84478

== ENCOUNTER 2021-11-13 13:25 | Outpatient (REF) | payer BC, SELFPAY ==
[2021-11-13 15:22] LABS: HCT 35.4 % (36.0-46.0); MCH 26.9 pg (27.0-33.0); MCHC 31.1 % (32.0-36.0); MCV 87 fL (80-95); MPV 11.5 fL (8.0-11.0); Platelet Count 249 10^3/uL (130-400); RBC 4.09 10^6/uL (3.93-5.22); RDW 17.2 % (11.7-14.6); RDW-SD 54.7 fL; WBC 6.69 10^3/uL (4.4-10.8)
[2021-11-13 15:51] LABS: ALT 61 U/L (14-59); AST 28 U/L (15-37); Albumin 2.7 g/dL (3.4-5.0); Alkaline Phosphatase 184 U/L (46-116); Anion Gap 8.7 mmol/L (3-11); BUN 21 mg/dL (7-18); Bilirubin, Total 0.3 mg/dL (0.2-1.0); CO2 26.3 mmol/L (21.0-32.0); CREATININE 0.5 mg/dL (0.55-1.02); Calcium 8.6 mg/dL (8.5-10.1); Chloride 106 mmol/L (98-107); Glucose 105 mg/dL (74-106); Magnesium 1.7 mg/dL (1.8-2.4); PHOSPHORUS 3.9 mg/dL (2.6-4.7); Potassium 4.4 mmol/L (3.5-5.1); Sodium 141 mmol/L (136-145)
[2021-11-13 16:03] LABS: Triglyceride 65 mg/dL (<150)
[2021-11-14 09:49] LABS: Prealbumin 17 mg/dL (20-40)
== END 2021-11-13 13:26 | disposition home or self-care (01) ==
LOC: LBN 13:25
PROVIDERS: PCP Family Medicine; Visit Provider Family Medicine
DX: Z51.81 Encounter for therapeutic drug level monitoring (principal); Z79.899 Other long term (current) drug therapy
CPT/HCPCS: 80053; 85027; 83735; 84100; 84134; 84478

== ENCOUNTER 2021-11-20 18:15 | Outpatient (REF) | payer BC, SELFPAY ==
[2021-11-20 17:42] LABS: HCT 34.2 % (36.0-46.0); HGB 10.9 g/dL (11.2-15.7); MCH 27.7 pg (27.0-33.0); MCHC 31.9 % (32.0-36.0); MCV 87 fL (80-95); MPV 11.5 fL (8.0-11.0); Platelet Count 239 10^3/uL (130-400); RBC 3.93 10^6/uL (3.93-5.22); RDW 17.1 % (11.7-14.6); RDW-SD 54.5 fL; WBC 7.05 10^3/uL (4.4-10.8)
[2021-11-20 18:06] LABS: ALT 59 U/L (14-59); AST 27 U/L (15-37); Albumin 2.7 g/dL (3.4-5.0); Alkaline Phosphatase 184 U/L (46-116); Anion Gap 8.8 mmol/L (3-11); BUN 29 mg/dL (7-18); Bilirubin, Total 0.2 mg/dL (0.2-1.0); CO2 29.2 mmol/L (21.0-32.0); CREATININE 0.4 mg/dL (0.55-1.02); Calcium 8.5 mg/dL (8.5-10.1); Chloride 103 mmol/L (98-107); Estimated GFR 116.81 (mL/min/1.73m2); Glucose 98 mg/dL (74-106); Magnesium 1.8 mg/dL (1.8-2.4); Potassium 4.6 mmol/L (3.5-5.1); Sodium 141 mmol/L (136-145); Total Protein 6.8 g/dL (6.4-8.2); Triglyceride 53 mg/dL (<150)
[2021-11-20 18:21] LABS: PHOSPHORUS 4.6 mg/dL (2.6-4.7)
[2021-11-22 09:19] LABS: Prealbumin 17 mg/dL (20-40)
== END 2021-11-20 18:16 | disposition home or self-care (01) ==
LOC: LBN 18:15
PROVIDERS: PCP Family Medicine; Visit Provider Internal Medicine Gastroenterology
DX: Z51.81 Encounter for therapeutic drug level monitoring (principal); Z79.899 Other long term (current) drug therapy
CPT/HCPCS: 80053; 85027; 83735; 84100; 84134; 84478

== ENCOUNTER 2021-12-04 18:02 | Outpatient (REF) | payer BC, SELFPAY ==
[2021-12-04 14:18] LABS: HCT 34.9 % (36.0-46.0); MCH 27.3 pg (27.0-33.0); MCHC 31.5 % (32.0-36.0); MCV 87 fL (80-95); MPV 11.3 fL (8.0-11.0); Platelet Count 275 10^3/uL (130-400); RBC 4.03 10^6/uL (3.93-5.22); RDW 16.8 % (11.7-14.6); RDW-SD 53.5 fL; WBC 6.52 10^3/uL (4.4-10.8)
[2021-12-04 14:26] LABS: ALT 78 U/L (14-59); AST 33 U/L (15-37); Albumin 2.8 g/dL (3.4-5.0); Alkaline Phosphatase 212 U/L (46-116); Anion Gap 8.9 mmol/L (3-11); BUN 23 mg/dL (7-18); Bilirubin, Total 0.2 mg/dL (0.2-1.0); CO2 25.1 mmol/L (21.0-32.0); CREATININE 0.5 mg/dL (0.55-1.02); Calcium 8.5 mg/dL (8.5-10.1); Chloride 106 mmol/L (98-107); Glucose 97 mg/dL (74-106); Magnesium 1.5 mg/dL (1.8-2.4); Potassium 4.3 mmol/L (3.5-5.1); Sodium 140 mmol/L (136-145); Total Protein 7.1 g/dL (6.4-8.2); Triglyceride 60 mg/dL (<150)
[2021-12-04 14:36] LABS: PHOSPHORUS 3.8 mg/dL (2.6-4.7)
[2021-12-05 09:53] LABS: Prealbumin 20 mg/dL (20-40)
== END 2021-12-04 18:03 | disposition home or self-care (01) ==
LOC: NCHCN 18:02
PROVIDERS: PCP Family Medicine; Visit Provider Internal Medicine Gastroenterology
DX: I50.22 Chronic systolic (congestive) heart failure (principal); I11.0 Hypertensive heart disease with heart failure; D64.9 Anemia, unspecified; E78.5 Hyperlipidemia, unspecified; M10.9 Gout, unspecified; I48.21 Permanent atrial fibrillation; I25.10 Atherosclerotic heart disease of native coronary artery without angina pectoris; E55.9 Vitamin D deficiency, unspecified; E87.6 Hypokalemia; F41.8 Other specified anxiety disorders
CPT/HCPCS: 80053; 85027; 83735; 84100; 84134; 84478

== ENCOUNTER 2021-12-19 09:15 | Outpatient (RCR) | payer BC, SELFPAY ==
[2021-11-28] MEDS: Heparin 500 UNITS/5 ML SYRINGE IV (09:41)
[2021-11-28] MEDS: Normal Saline Flush 10 ML SYR IVP (09:41)
[2021-11-28 10:01] LABS: Prothrombin Time 11.5 sec (9.3-11.0)
[2021-11-28 10:02] LABS: INR 1.1 (0.9-1.1)
[2021-11-28 10:37] LABS: Ferritin 199 ng/mL (8-252); Vitamin B12 441 pg/mL (193-986)
[2021-11-28 11:03] LABS: Iron 45 ug/dL (50-170); Total Iron Binding Capacity 245 ug/dL (250-450); Transferrin Sat 18 % (15-50)
[2021-11-29 19:57] LABS: Chromium, Serum 0.5 ng/mL (<0.3)
[2021-11-29 20:58] LABS: Copper, Serum 82 mcg/dL (77-206)
[2021-11-30 09:37] LABS: Methylmalonic Acid 0.14 nmol/mL (<=0.40)
[2021-11-30 15:22] LABS: Zinc, S 81 mcg/dL (60-106)
[2021-11-30 15:23] LABS: Selenium, Serum 115 mcg/L (110-165)
[2021-12-01 12:26] LABS: Free Retinol (Vitamin A) 38.5 mcg/dL (32.5-78.0)
[2021-12-02 00:47] LABS: Vitamin E, Serum 9.4 mg/L (5.5 - 17.0)
[2021-12-02 12:00] LABS: Thiamine (Vitamin B1), WB 248 nmol/L (70-180)
[2021-12-04 14:05] LABS: Arachidic Acid, C20.0 28 nmol/mL (50-90); Arachidonic Acid, C20:4w6 538 nmol/mL (520-1490); DHA, C22:6w3 168 nmol/mL (30-250); DPA, C22:5w3 66 nmol/mL (20-210); DPA, C22:5w6 19 nmol/mL (10-70); DTA, C22:4w6 20 nmol/mL (10-80); Docosenoic Acid, C22:1 4 nmol/mL (4-13); EPA, C20:5w3 163 nmol/mL (14-100); Hexadecenoic Acid, C16:1w9 34 nmol/mL (25-105); Lauric Acid, C12:0 11 nmol/mL (6-90); Linoleic Acid, C18:2w6 1079 nmol/mL (2270-3850); Mead Acid, C20:3w9 26 nmol/mL (7-30); Myristic Acid, C14:0 107 nmol/mL (30-450); Nervonic Acid, C24:1w9 63 nmol/mL (60-100); Oleic Acid, C18:1w9 1261 nmol/mL (650-3500); Palmitic Acid, C16:0 1767 nmol/mL (1480-3730); Palmitoleic Acid, C16:1w7 311 nmol/mL (110-1130); Stearic Acid, C18:0 593 nmol/mL (590-1170); Total Polyunsaturated Acid 2.3 mmol/L (3.2-5.8); Vaccenic Acid, C18:1w7 144 nmol/mL (280-740); a-Linolenic Acid, C18:3w3 36 nmol/mL (50-130); g-Linolenic Acid, C18:3w6 29 nmol/mL (16-150); h-g-Linolenic, C20:3w6 138 nmol/mL (50-250)
[2021-12-05 11:59] LABS: Manganese, Serum 0.6 ng/mL (0.5-1.2)
[2021-12-05 17:15] LABS: 25-Hydroxy D Total 17 ng/mL; 25-Hydroxy D2 <4.0 ng/mL; 25-Hydroxy D3 17 ng/mL
[2021-12-19 09:17] LABS: HCT 35.7 % (36.0-46.0); HGB 11.7 g/dL (11.2-15.7); MCH 28.2 pg (27.0-33.0); MCHC 32.8 % (32.0-36.0); MCV 86 fL (80-95); MPV 10.8 fL (8.0-11.0); Platelet Count 229 10^3/uL (130-400); RBC 4.15 10^6/uL (3.93-5.22); RDW 17.2 % (11.7-14.6); RDW-SD 53.8 fL; WBC 7.33 10^3/uL (4.4-10.8)
[2021-12-19] MEDS: Normal Saline Flush 10 ML SYR IVP (09:23)
[2021-12-19] MEDS: Heparin 500 UNITS/5 ML SYRINGE IV (09:23)
[2021-12-19 09:36] LABS: ALT 92 U/L (14-59); AST 37 U/L (15-37); Albumin 3.1 g/dL (3.4-5.0); Alkaline Phosphatase 234 U/L (46-116); Anion Gap 5.6 mmol/L (3-11); BUN 29 mg/dL (7-18); Bilirubin, Total 0.3 mg/dL (0.2-1.0); CO2 30.4 mmol/L (21.0-32.0); CREATININE 0.6 mg/dL (0.55-1.02); Calcium 8.9 mg/dL (8.5-10.1); Chloride 99 mmol/L (98-107); Estimated GFR 105.94 (mL/min/1.73m2); Glucose 98 mg/dL (74-106); Magnesium 1.8 mg/dL (1.8-2.4); PHOSPHORUS 4.2 mg/dL (2.6-4.7); Potassium 4.4 mmol/L (3.5-5.1); Sodium 135 mmol/L (136-145); Total Protein 7.8 g/dL (6.4-8.2)
[2021-12-19 09:49] LABS: Triglyceride 79 mg/dL (<150)
[2021-12-20 08:58] LABS: Prealbumin 22 mg/dL (20-40)
== END 2021-12-22 23:59 | disposition home or self-care (01) ==
LOC: INF 09:15
PROVIDERS: PCP Family Medicine; Visit Provider Internal Medicine Gastroenterology
DX: K91.2 Postsurgical malabsorption, not elsewhere classified (principal); R19.7 Diarrhea, unspecified; E60 Dietary zinc deficiency; Z78.9 Other specified health status; Z45.2 Encounter for adjustment and management of vascular access device
CPT/HCPCS: 36591; 80053; 80186; 82306; 82525; 82542; 84630; 85027; 82495; 82607; 82728; 82746; 83540; 83550; 83735; 83785; 84100; 84134; 84255; 84425; 84446; 84478; 84590; 85610

== ENCOUNTER 2022-01-15 13:10 | Outpatient (RCR) | payer BC, SELFPAY ==
[2022-01-02] MEDS: Normal Saline Flush 10 ML SYR IVP (09:22)
[2022-01-02] MEDS: Heparin 500 UNITS/5 ML SYRINGE IV (09:22)
[2022-01-02 09:23] LABS: Abs Immature Grans 0.01 10^3/uL (0.0-0.06); Absolute Basophil Count 0.17 10^3/uL (0.0-0.2); Absolute Lymphocyte Count 2.23 10^3/uL (1.2-3.4); Absolute Monocyte Count 0.69 10^3/uL (0.1-0.8); Absolute Neutrophil Count 3.26 10^3/uL (1.2-6.7); Basophils % 2.5; Eosinophils % 5.9; HCT 35.7 % (36.0-46.0); HGB 11.6 g/dL (11.2-15.7); Immature Grans % 0.1; MCH 28.3 pg (27.0-33.0); MCHC 32.5 % (32.0-36.0); MCV 87 fL (80-95); MPV 10.7 fL (8.0-11.0); Monocytes % 10.2; Neutrophils % 48.3; Platelet Count 236 10^3/uL (130-400); RDW 16.8 % (11.7-14.6); RDW-SD 53.6 fL; WBC 6.76 10^3/uL (4.4-10.8)
[2022-01-02 09:45] LABS: ALT 75 U/L (14-59); AST 32 U/L (15-37); Albumin 3.1 g/dL (3.4-5.0); Alkaline Phosphatase 224 U/L (46-116); Anion Gap 9.9 mmol/L (3-11); BUN 26 mg/dL (7-18); Bilirubin, Total 0.3 mg/dL (0.2-1.0); CO2 25.1 mmol/L (21.0-32.0); CREATININE 0.5 mg/dL (0.55-1.02); Calcium 8.8 mg/dL (8.5-10.1); Chloride 104 mmol/L (98-107); Glucose 102 mg/dL (74-106); Magnesium 1.7 mg/dL (1.8-2.4); PHOSPHORUS 4.3 mg/dL (2.6-4.7); Potassium 4.5 mmol/L (3.5-5.1); Sodium 139 mmol/L (136-145); Total Protein 8.1 g/dL (6.4-8.2)
[2022-01-02 09:57] LABS: Triglyceride 54 mg/dL (<150)
[2022-01-03 10:01] LABS: Prealbumin 22 mg/dL (20-40)
[2022-01-08] MEDS: Normal Saline Flush 10 ML SYR IVP (08:39)
[2022-01-15 13:30] LABS: Abs Immature Grans 0.01 10^3/uL (0.0-0.06); Absolute Basophil Count 0.12 10^3/uL (0.0-0.2); Absolute Eosinophil Count 0.34 10^3/uL (0.0-0.7); Absolute Lymphocyte Count 2.32 10^3/uL (1.2-3.4); Absolute Monocyte Count 0.63 10^3/uL (0.1-0.8); Basophils % 1.8; Eosinophils % 5.1; HCT 34.9 % (36.0-46.0); HGB 11.4 g/dL (11.2-15.7); Immature Grans % 0.1; Lymphocytes % 34.5; MCH 28.3 pg (27.0-33.0); MCHC 32.7 % (32.0-36.0); MCV 87 fL (80-95); MPV 10.9 fL (8.0-11.0); Monocytes % 9.4; Neutrophils % 49.1; Platelet Count 242 10^3/uL (130-400); RBC 4.03 10^6/uL (3.93-5.22); RDW 15.8 % (11.7-14.6); RDW-SD 50.2 fL; WBC 6.72 10^3/uL (4.4-10.8)
[2022-01-15] MEDS: Normal Saline Flush 10 ML SYR IVP (13:31)
[2022-01-15] MEDS: Heparin 500 UNITS/5 ML SYRINGE IV (13:32)
[2022-01-15 13:49] LABS: ALT 73 U/L (14-59); AST 31 U/L (15-37); Alkaline Phosphatase 222 U/L (46-116); Anion Gap 8.9 mmol/L (3-11); BUN 21 mg/dL (7-18); Bilirubin, Total 0.3 mg/dL (0.2-1.0); CO2 27.1 mmol/L (21.0-32.0); CREATININE 0.6 mg/dL (0.55-1.02); Calcium 8.7 mg/dL (8.5-10.1); Chloride 104 mmol/L (98-107); Estimated GFR 105.94 (mL/min/1.73m2); Glucose 100 mg/dL (74-106); Magnesium 1.6 mg/dL (1.8-2.4); Potassium 4.2 mmol/L (3.5-5.1); Sodium 140 mmol/L (136-145); Total Protein 7.8 g/dL (6.4-8.2); Triglyceride 62 mg/dL (<150)
[2022-01-15 14:04] LABS: PHOSPHORUS 3.8 mg/dL (2.6-4.7)
[2022-01-17 09:41] LABS: Prealbumin 20 mg/dL (20-40)
== END 2022-01-22 23:59 | disposition home or self-care (01) ==
LOC: INF 13:10
PROVIDERS: PCP Family Medicine; Visit Provider Internal Medicine Gastroenterology
DX: Z45.2 Encounter for adjustment and management of vascular access device (principal); K91.2 Postsurgical malabsorption, not elsewhere classified; E43 Unspecified severe protein-calorie malnutrition; Z78.9 Other specified health status
CPT/HCPCS: 36591; 80053; 83735; 84100; 84134; 84478; 85025

== ENCOUNTER 2022-02-20 03:23 | Outpatient (RCR) | payer BC, SELFPAY ==
[2022-01-23] MEDS: Normal Saline Flush 10 ML SYR IVP (09:13)
[2022-01-30 09:11] LABS: Abs Immature Grans 0.01 10^3/uL (0.0-0.06); Absolute Basophil Count 0.14 10^3/uL (0.0-0.2); Absolute Eosinophil Count 0.35 10^3/uL (0.0-0.7); Absolute Lymphocyte Count 2.03 10^3/uL (1.2-3.4); Absolute Monocyte Count 0.71 10^3/uL (0.1-0.8); Absolute Neutrophil Count 3.13 10^3/uL (1.2-6.7); Basophils % 2.2; Eosinophils % 5.5; HCT 34.3 % (36.0-46.0); HGB 11.2 g/dL (11.2-15.7); Immature Grans % 0.2; Lymphocytes % 31.9; MCH 28.6 pg (27.0-33.0); MCHC 32.7 % (32.0-36.0); MCV 88 fL (80-95); MPV 10.8 fL (8.0-11.0); Monocytes % 11.1; Neutrophils % 49.1; Platelet Count 240 10^3/uL (130-400); RBC 3.92 10^6/uL (3.93-5.22); RDW-SD 47.9 fL; WBC 6.37 10^3/uL (4.4-10.8)
[2022-01-30] MEDS: Heparin 500 UNITS/5 ML SYRINGE IV (09:19)
[2022-01-30] MEDS: Normal Saline Flush 10 ML SYR IVP (09:19)
[2022-01-30 09:41] LABS: ALT 61 U/L (14-59); AST 27 U/L (15-37); Alkaline Phosphatase 219 U/L (46-116); Anion Gap 7.6 mmol/L (3-11); BUN 25 mg/dL (7-18); Bilirubin, Total 0.3 mg/dL (0.2-1.0); CO2 26.4 mmol/L (21.0-32.0); CREATININE 0.5 mg/dL (0.55-1.02); Calcium 8.5 mg/dL (8.5-10.1); Chloride 106 mmol/L (98-107); Glucose 109 mg/dL (74-106); Magnesium 1.6 mg/dL (1.8-2.4); Potassium 4.1 mmol/L (3.5-5.1); Sodium 140 mmol/L (136-145); Total Protein 7.6 g/dL (6.4-8.2); Triglyceride 46 mg/dL (<150)
[2022-01-30 09:55] LABS: PHOSPHORUS 3.6 mg/dL (2.6-4.7)
[2022-01-31 10:22] LABS: Prealbumin 18 mg/dL (20-40)
[2022-02-05] MEDS: Normal Saline Flush 10 ML SYR IVP (11:09)
[2022-02-13] MEDS: Normal Saline Flush 10 ML SYR IVP (09:15)
[2022-02-13] MEDS: Heparin 500 UNITS/5 ML SYRINGE IV (09:15)
[2022-02-13 09:23] LABS: Abs Immature Grans 0.01 10^3/uL (0.0-0.06); Absolute Basophil Count 0.12 10^3/uL (0.0-0.2); Absolute Eosinophil Count 0.31 10^3/uL (0.0-0.7); Absolute Monocyte Count 0.69 10^3/uL (0.1-0.8); Absolute Neutrophil Count 2.41 10^3/uL (1.2-6.7); Eosinophils % 5.2; HCT 35.2 % (36.0-46.0); HGB 11.5 g/dL (11.2-15.7); Immature Grans % 0.2; Lymphocytes % 40.4; MCH 28.5 pg (27.0-33.0); MCHC 32.7 % (32.0-36.0); MCV 87 fL (80-95); MPV 10.4 fL (8.0-11.0); Monocytes % 11.6; Neutrophils % 40.6; Platelet Count 268 10^3/uL (130-400); RBC 4.04 10^6/uL (3.93-5.22); RDW 15.3 % (11.7-14.6); RDW-SD 48.6 fL; WBC 5.94 10^3/uL (4.4-10.8)
[2022-02-13 10:01] LABS: ALT 68 U/L (14-59); AST 39 U/L (15-37); Alkaline Phosphatase 232 U/L (46-116); Anion Gap 7.3 mmol/L (3-11); BUN 25 mg/dL (7-18); Bilirubin, Total 0.4 mg/dL (0.2-1.0); CO2 29.7 mmol/L (21.0-32.0); CREATININE 0.6 mg/dL (0.55-1.02); Calcium 8.7 mg/dL (8.5-10.1); Chloride 97 mmol/L (98-107); Estimated GFR 105.94 (mL/min/1.73m2); Glucose 112 mg/dL (74-106); Magnesium 2.1 mg/dL (1.8-2.4); Potassium 4.3 mmol/L (3.5-5.1); Sodium 134 mmol/L (136-145); Total Protein 7.7 g/dL (6.4-8.2); Triglyceride 69 mg/dL (<150)
[2022-02-13 10:35] LABS: PHOSPHORUS 3.9 mg/dL (2.6-4.7)
[2022-02-14 09:39] LABS: Prealbumin 20 mg/dL (20-40)
[2022-02-20] MEDS: Normal Saline Flush 10 ML SYR IVP (09:19)
== END 2022-02-21 23:59 | disposition home or self-care (01) ==
LOC: INF 03:23
PROVIDERS: PCP Family Medicine; Visit Provider Internal Medicine Gastroenterology
DX: Z45.2 Encounter for adjustment and management of vascular access device (principal); K91.2 Postsurgical malabsorption, not elsewhere classified; E43 Unspecified severe protein-calorie malnutrition; Z78.9 Other specified health status
CPT/HCPCS: 36591; 80053; 83735; 84100; 84134; 84478; 85025

== ENCOUNTER 2022-03-20 03:21 | Outpatient (RCR) | payer BC, SELFPAY ==
[2022-02-27] MEDS: Heparin 500 UNITS/5 ML SYRINGE (09:30)
[2022-02-27] MEDS: Normal Saline Flush 10 ML SYR IVP (09:33)
[2022-02-27 09:37] LABS: Abs Immature Grans 0.02 10^3/uL (0.0-0.06); Absolute Basophil Count 0.12 10^3/uL (0.0-0.2); Absolute Eosinophil Count 0.38 10^3/uL (0.0-0.7); Absolute Lymphocyte Count 2.05 10^3/uL (1.2-3.4); Absolute Monocyte Count 0.65 10^3/uL (0.1-0.8); Absolute Neutrophil Count 2.76 10^3/uL (1.2-6.7); Eosinophils % 6.4; HCT 34.3 % (36.0-46.0); HGB 11.1 g/dL (11.2-15.7); Immature Grans % 0.3; Lymphocytes % 34.3; MCH 28.2 pg (27.0-33.0); MCHC 32.4 % (32.0-36.0); MCV 87 fL (80-95); MPV 10.1 fL (8.0-11.0); Monocytes % 10.9; Neutrophils % 46.1; Platelet Count 278 10^3/uL (130-400); RBC 3.94 10^6/uL (3.93-5.22); RDW 14.8 % (11.7-14.6); RDW-SD 47.9 fL; WBC 5.98 10^3/uL (4.4-10.8)
[2022-02-27 09:52] LABS: ALT 57 U/L (14-59); AST 33 U/L (15-37); Alkaline Phosphatase 202 U/L (46-116); Anion Gap 8.2 mmol/L (3-11); BUN 24 mg/dL (7-18); Bilirubin, Total 0.3 mg/dL (0.2-1.0); CO2 27.8 mmol/L (21.0-32.0); CREATININE 0.6 mg/dL (0.55-1.02); Calcium 8.5 mg/dL (8.5-10.1); Chloride 102 mmol/L (98-107); Estimated GFR 105.94 (mL/min/1.73m2); Glucose 108 mg/dL (74-106); Magnesium 1.9 mg/dL (1.8-2.4); PHOSPHORUS 3.7 mg/dL (2.6-4.7); Potassium 4.5 mmol/L (3.5-5.1); Sodium 138 mmol/L (136-145); Total Protein 7.7 g/dL (6.4-8.2)
[2022-02-27 10:08] LABS: Triglyceride 62 mg/dL (<150)
[2022-02-28 10:08] LABS: Prealbumin 20 mg/dL (20-40)
[2022-03-06] MEDS: Normal Saline Flush 10 ML SYR IVP (09:09)
[2022-03-13] MEDS: Heparin 500 UNITS/5 ML SYRINGE IV (09:23)
[2022-03-13] MEDS: Normal Saline Flush 10 ML SYR IVP (09:23)
[2022-03-13 09:37] LABS: Abs Immature Grans 0.01 10^3/uL (0.0-0.06); Absolute Basophil Count 0.13 10^3/uL (0.0-0.2); Absolute Eosinophil Count 0.48 10^3/uL (0.0-0.7); Absolute Lymphocyte Count 2.64 10^3/uL (1.2-3.4); Absolute Monocyte Count 0.71 10^3/uL (0.1-0.8); Absolute Neutrophil Count 3.16 10^3/uL (1.2-6.7); Basophils % 1.8; Eosinophils % 6.7; HCT 36.7 % (36.0-46.0); HGB 11.8 g/dL (11.2-15.7); Immature Grans % 0.1; MCH 28.1 pg (27.0-33.0); MCHC 32.2 % (32.0-36.0); MCV 87 fL (80-95); MPV 10.5 fL (8.0-11.0); Neutrophils % 44.4; Platelet Count 286 10^3/uL (130-400); RDW-SD 48.5 fL; WBC 7.13 10^3/uL (4.4-10.8)
[2022-03-13 09:59] LABS: ALT 50 U/L (14-59); AST 23 U/L (15-37); Albumin 3.1 g/dL (3.4-5.0); Alkaline Phosphatase 214 U/L (46-116); Anion Gap 8.2 mmol/L (3-11); BUN 23 mg/dL (7-18); Bilirubin, Total 0.3 mg/dL (0.2-1.0); CO2 23.8 mmol/L (21.0-32.0); CREATININE 0.6 mg/dL (0.55-1.02); Calcium 8.5 mg/dL (8.5-10.1); Chloride 104 mmol/L (98-107); Estimated GFR 105.94 (mL/min/1.73m2); Glucose 106 mg/dL (74-106); Magnesium 1.9 mg/dL (1.8-2.4); PHOSPHORUS 3.7 mg/dL (2.6-4.7); Potassium 4.5 mmol/L (3.5-5.1); Sodium 136 mmol/L (136-145)
[2022-03-13 10:13] LABS: Triglyceride 52 mg/dL (<150)
[2022-03-14 09:42] LABS: Prealbumin 21 mg/dL (20-40)
[2022-03-20] MEDS: Normal Saline Flush 10 ML SYR IVP (09:21)
== END 2022-03-24 23:59 | disposition home or self-care (01) ==
LOC: INF 03:21
PROVIDERS: PCP Family Medicine; Visit Provider Internal Medicine Gastroenterology
DX: Z45.2 Encounter for adjustment and management of vascular access device (principal); K91.2 Postsurgical malabsorption, not elsewhere classified; E43 Unspecified severe protein-calorie malnutrition; Z78.9 Other specified health status
CPT/HCPCS: 36591; 80053; 83735; 84100; 84134; 84478; 85025

== ENCOUNTER 2022-04-23 02:38 | Outpatient (RCR) | payer BC, SELFPAY ==
[2022-03-27] MEDS: Heparin 500 UNITS/5 ML SYRINGE IV (09:23)
[2022-03-27] MEDS: Normal Saline Flush 10 ML SYR IVP (09:23)
[2022-03-27 09:30] LABS: Abs Immature Grans 0.01 10^3/uL (0.0-0.06); Absolute Basophil Count 0.14 10^3/uL (0.0-0.2); Absolute Eosinophil Count 0.41 10^3/uL (0.0-0.7); Absolute Lymphocyte Count 2.53 10^3/uL (1.2-3.4); Absolute Monocyte Count 0.66 10^3/uL (0.1-0.8); Basophils % 2.1; Eosinophils % 6.1; HGB 11.6 g/dL (11.2-15.7); Immature Grans % 0.1; Lymphocytes % 37.5; MCH 28.2 pg (27.0-33.0); MCHC 32.2 % (32.0-36.0); MCV 87 fL (80-95); MPV 10.4 fL (8.0-11.0); Monocytes % 9.8; Neutrophils % 44.4; Platelet Count 267 10^3/uL (130-400); RBC 4.12 10^6/uL (3.93-5.22); RDW 15.4 % (11.7-14.6); RDW-SD 49.8 fL; WBC 6.75 10^3/uL (4.4-10.8)
[2022-03-27 09:50] LABS: ALT 65 U/L (14-59); AST 33 U/L (15-37); Albumin 3.1 g/dL (3.4-5.0); Alkaline Phosphatase 199 U/L (46-116); Anion Gap 6.2 mmol/L (3-11); BUN 25 mg/dL (7-18); Bilirubin, Total 0.4 mg/dL (0.2-1.0); CO2 28.8 mmol/L (21.0-32.0); CREATININE 0.6 mg/dL (0.55-1.02); Calcium 8.4 mg/dL (8.5-10.1); Chloride 103 mmol/L (98-107); Estimated GFR 105.94 (mL/min/1.73m2); Glucose 102 mg/dL (74-106); PHOSPHORUS 4.1 mg/dL (2.6-4.7); Potassium 4.3 mmol/L (3.5-5.1); Sodium 138 mmol/L (136-145); Total Protein 7.7 g/dL (6.4-8.2)
[2022-03-27 10:09] LABS: Triglyceride 61 mg/dL (<150)
[2022-03-28 09:48] LABS: Prealbumin 24 mg/dL (20-40)
[2022-04-03] MEDS: Normal Saline Flush 10 ML SYR IVP (09:23)
[2022-04-09] MEDS: Normal Saline Flush 10 ML SYR IVP (08:11)
[2022-04-09] MEDS: Heparin 500 UNITS/5 ML SYRINGE IV (08:11)
[2022-04-09 08:21] LABS: Absolute Basophil Count 0.15 10^3/uL (0.0-0.2); Absolute Eosinophil Count 0.46 10^3/uL (0.0-0.7); Absolute Lymphocyte Count 2.73 10^3/uL (1.2-3.4); Basophils % 2.3; HCT 35.5 % (36.0-46.0); HGB 11.5 g/dL (11.2-15.7); Lymphocytes % 41.7; MCH 28.3 pg (27.0-33.0); MCHC 32.4 % (32.0-36.0); MCV 87 fL (80-95); MPV 10.5 fL (8.0-11.0); Monocytes % 10.7; Neutrophils % 38.3; Platelet Count 264 10^3/uL (130-400); RBC 4.07 10^6/uL (3.93-5.22); RDW 15.1 % (11.7-14.6); RDW-SD 48.1 fL; WBC 6.54 10^3/uL (4.4-10.8)
[2022-04-09 08:44] LABS: ALT 90 U/L (14-59); AST 44 U/L (15-37); Albumin 3.2 g/dL (3.4-5.0); Alkaline Phosphatase 211 U/L (46-116); Anion Gap 7.8 mmol/L (3-11); BUN 24 mg/dL (7-18); Bilirubin, Total 0.4 mg/dL (0.2-1.0); CO2 25.2 mmol/L (21.0-32.0); CREATININE 0.6 mg/dL (0.55-1.02); Calcium 8.5 mg/dL (8.5-10.1); Chloride 103 mmol/L (98-107); Estimated GFR 105.94 (mL/min/1.73m2); Glucose 109 mg/dL (74-106); Magnesium 1.9 mg/dL (1.8-2.4); Potassium 4.3 mmol/L (3.5-5.1); Sodium 136 mmol/L (136-145); Total Protein 7.8 g/dL (6.4-8.2)
[2022-04-09 09:00] LABS: Triglyceride 59 mg/dL (<150)
[2022-04-10 10:48] LABS: Prealbumin 22 mg/dL (20-40)
[2022-04-17] MEDS: Normal Saline Flush 10 ML SYR IVP (08:53)
[2022-04-23] MEDS: Heparin 500 UNITS/5 ML SYRINGE IV (08:23)
[2022-04-23] MEDS: Normal Saline Flush 10 ML SYR IVP (08:23)
[2022-04-23 08:29] LABS: Abs Immature Grans 0.01 10^3/uL (0.0-0.06); Absolute Basophil Count 0.16 10^3/uL (0.0-0.2); Absolute Eosinophil Count 0.48 10^3/uL (0.0-0.7); Absolute Lymphocyte Count 2.17 10^3/uL (1.2-3.4); Absolute Monocyte Count 0.77 10^3/uL (0.1-0.8); Basophils % 2.4; Eosinophils % 7.3; HCT 36.8 % (36.0-46.0); Immature Grans % 0.2; Lymphocytes % 32.9; MCH 28.2 pg (27.0-33.0); MCHC 32.6 % (32.0-36.0); MCV 87 fL (80-95); MPV 10.3 fL (8.0-11.0); Monocytes % 11.7; Neutrophils % 45.5; Platelet Count 251 10^3/uL (130-400); RBC 4.25 10^6/uL (3.93-5.22); RDW 15.3 % (11.7-14.6); RDW-SD 48.7 fL; WBC 6.59 10^3/uL (4.4-10.8)
[2022-04-23 08:44] LABS: ALT 80 U/L (14-59); AST 53 U/L (15-37); Albumin 3.2 g/dL (3.4-5.0); Alkaline Phosphatase 231 U/L (46-116); Anion Gap 7.5 mmol/L (3-11); BUN 23 mg/dL (7-18); Bilirubin, Total 0.4 mg/dL (0.2-1.0); CO2 28.5 mmol/L (21.0-32.0); CREATININE 0.6 mg/dL (0.55-1.02); Calcium 8.7 mg/dL (8.5-10.1); Chloride 102 mmol/L (98-107); Estimated GFR 105.94 (mL/min/1.73m2); Glucose 104 mg/dL (74-106); Magnesium 1.8 mg/dL (1.8-2.4); Potassium 4.6 mmol/L (3.5-5.1); Sodium 138 mmol/L (136-145); Total Protein 7.7 g/dL (6.4-8.2); Triglyceride 54 mg/dL (<150)
[2022-04-23 08:55] LABS: PHOSPHORUS 4.1 mg/dL (2.6-4.7)
[2022-04-24 10:38] LABS: Prealbumin 20 mg/dL (20-40)
== END 2022-04-24 23:59 | disposition home or self-care (01) ==
LOC: INF 02:38
PROVIDERS: PCP Family Medicine; Visit Provider Internal Medicine Gastroenterology
DX: K91.2 Postsurgical malabsorption, not elsewhere classified (principal); E43 Unspecified severe protein-calorie malnutrition; Z78.9 Other specified health status; Z45.2 Encounter for adjustment and management of vascular access device
CPT/HCPCS: 36591; 80053; 83735; 84100; 84134; 84478; 85025

== ENCOUNTER 2022-05-21 02:02 | Outpatient (RCR) | payer BC, SELFPAY ==
[2022-04-30] MEDS: Normal Saline Flush 10 ML SYR IVP (10:49)
[2022-05-07] MEDS: Heparin 500 UNITS/5 ML SYRINGE (08:37)
[2022-05-07] MEDS: Normal Saline Flush 10 ML SYR IVP (08:37)
[2022-05-07 08:50] LABS: HCT 37.4 % (36.0-46.0); HGB 11.9 g/dL (11.2-15.7); MCH 27.9 pg (27.0-33.0); MCHC 31.8 % (32.0-36.0); MCV 88 fL (80-95); MPV 10.4 fL (8.0-11.0); Platelet Count 266 10^3/uL (130-400); RBC 4.27 10^6/uL (3.93-5.22); RDW 15.1 % (11.7-14.6); RDW-SD 48.7 fL; WBC 7.11 10^3/uL (4.4-10.8)
[2022-05-07 09:16] LABS: ALT 80 U/L (14-59); AST 41 U/L (15-37); Albumin 3.1 g/dL (3.4-5.0); Alkaline Phosphatase 233 U/L (46-116); Anion Gap 7.9 mmol/L (3-11); Bilirubin, Total 0.4 mg/dL (0.2-1.0); CO2 26.1 mmol/L (21.0-32.0); CREATININE 0.6 mg/dL (0.55-1.02); Calcium 8.6 mg/dL (8.5-10.1); Chloride 103 mmol/L (98-107); Estimated GFR 105.94 (mL/min/1.73m2); Glucose 102 mg/dL (74-106); Magnesium 1.8 mg/dL (1.8-2.4); PHOSPHORUS 3.7 mg/dL (2.6-4.7); Potassium 4.5 mmol/L (3.5-5.1); Sodium 137 mmol/L (136-145); TSH (W/Ref FT4) 32.23 uIU/mL (0.36-3.74); Total Protein 7.5 g/dL (6.4-8.2)
[2022-05-07 09:31] LABS: BUN 20 mg/dL (7-18); FREE T4 0.79 ng/dL (0.76-1.46)
[2022-05-07 09:45] LABS: Triglyceride 59 mg/dL (<150)
[2022-05-08 10:56] LABS: Prealbumin 19 mg/dL (20-40)
[2022-05-14] MEDS: Normal Saline Flush 10 ML SYR IVP (09:26)
[2022-05-21] MEDS: IRON SUCROSE COMPLEX 200 MG in Normal Saline 100 ML 440 MG IVPB (08:28)
[2022-05-21] MEDS: Normal Saline Flush 10 ML SYR IVP (08:32)
[2022-05-21] MEDS: Heparin 500 UNITS/5 ML SYRINGE IV (08:33)
[2022-05-21 08:50] LABS: HCT 37.1 % (36.0-46.0); MCH 27.8 pg (27.0-33.0); MCHC 32.3 % (32.0-36.0); MCV 86 fL (80-95); MPV 10.1 fL (8.0-11.0); Platelet Count 210 10^3/uL (130-400); RBC 4.32 10^6/uL (3.93-5.22); RDW 15.3 % (11.7-14.6); RDW-SD 48.4 fL; WBC 6.12 10^3/uL (4.4-10.8)
[2022-05-21 09:21] LABS: ALT 58 U/L (14-59); AST 27 U/L (15-37); Albumin 3.1 g/dL (3.4-5.0); Alkaline Phosphatase 215 U/L (46-116); Anion Gap 6.4 mmol/L (3-11); BUN 18 mg/dL (7-18); Bilirubin, Total 0.4 mg/dL (0.2-1.0); CO2 27.6 mmol/L (21.0-32.0); CREATININE 0.6 mg/dL (0.55-1.02); Calcium 8.7 mg/dL (8.5-10.1); Chloride 103 mmol/L (98-107); Estimated GFR 105.94 (mL/min/1.73m2); Glucose 95 mg/dL (74-106); Magnesium 1.8 mg/dL (1.8-2.4); Potassium 4.2 mmol/L (3.5-5.1); Sodium 137 mmol/L (136-145); Total Protein 7.3 g/dL (6.4-8.2)
[2022-05-21 09:32] LABS: Triglyceride 91 mg/dL (<150)
[2022-05-22 11:46] LABS: Prealbumin 20 mg/dL (20-40)
== END 2022-05-22 23:59 | disposition home or self-care (01) ==
LOC: INF 02:02
PROVIDERS: PCP Family Medicine; Visit Provider Internal Medicine Gastroenterology
DX: E03.9 Hypothyroidism, unspecified (principal); D50.9 Iron deficiency anemia, unspecified; Z45.2 Encounter for adjustment and management of vascular access device
CPT/HCPCS: 36591; 80053; 85027; 96365; 83735; 84100; 84134; 84439; 84443; 84478; J1756

== ENCOUNTER 2022-06-19 01:53 | Outpatient (RCR) | payer BC, SELFPAY ==
[2022-05-28] MEDS: Normal Saline Flush 10 ML SYR IVP (08:15)
[2022-06-04] MEDS: Normal Saline Flush 10 ML SYR IVP (08:06)
[2022-06-04] MEDS: Heparin 500 UNITS/5 ML SYRINGE IV (08:06)
[2022-06-04 08:47] LABS: HGB 12.7 g/dL (11.2-15.7); MCH 28.2 pg (27.0-33.0); MCHC 32.6 % (32.0-36.0); MCV 87 fL (80-95); MPV 10.2 fL (8.0-11.0); Platelet Count 271 10^3/uL (130-400); RDW 15.9 % (11.7-14.6); RDW-SD 50.9 fL; WBC 6.89 10^3/uL (4.4-10.8)
[2022-06-04 09:01] LABS: ALT 93 U/L (14-59); AST 33 U/L (15-37); Albumin 3.1 g/dL (3.4-5.0); Alkaline Phosphatase 235 U/L (46-116); BUN 21 mg/dL (7-18); Bilirubin, Total 0.4 mg/dL (0.2-1.0); CREATININE 0.6 mg/dL (0.55-1.02); Calcium 8.7 mg/dL (8.5-10.1); Chloride 104 mmol/L (98-107); Estimated GFR 105.94 (mL/min/1.73m2); Glucose 91 mg/dL (74-106); Magnesium 1.9 mg/dL (1.8-2.4); PHOSPHORUS 3.6 mg/dL (2.6-4.7); Potassium 4.2 mmol/L (3.5-5.1); Sodium 137 mmol/L (136-145); Total Protein 7.5 g/dL (6.4-8.2)
[2022-06-04 09:17] LABS: Triglyceride 113 mg/dL (<150)
[2022-06-05 10:30] LABS: Prealbumin 21 mg/dL (20-40)
[2022-06-11] MEDS: Normal Saline Flush 10 ML SYR IVP (08:20)
[2022-06-19] MEDS: Normal Saline Flush 10 ML SYR IVP (08:25)
[2022-06-19] MEDS: Heparin 500 UNITS/5 ML SYRINGE IV (08:25)
[2022-06-19 08:39] LABS: HCT 37.2 % (36.0-46.0); HGB 12.3 g/dL (11.2-15.7); MCH 28.8 pg (27.0-33.0); MCHC 33.1 % (32.0-36.0); MCV 87 fL (80-95); MPV 10.4 fL (8.0-11.0); Platelet Count 216 10^3/uL (130-400); RBC 4.27 10^6/uL (3.93-5.22); RDW 15.7 % (11.7-14.6); RDW-SD 49.5 fL; WBC 6.83 10^3/uL (4.4-10.8)
[2022-06-19 09:16] LABS: ALT 64 U/L (14-59); AST 26 U/L (15-37); Alkaline Phosphatase 212 U/L (46-116); Anion Gap 9.9 mmol/L (3-11); BUN 23 mg/dL (7-18); Bilirubin, Total 0.4 mg/dL (0.2-1.0); CO2 23.1 mmol/L (21.0-32.0); CREATININE 0.5 mg/dL (0.55-1.02); Calcium 8.4 mg/dL (8.5-10.1); Chloride 106 mmol/L (98-107); Estimated GFR 110.01 (mL/min/1.73m2); Glucose 108 mg/dL (74-106); Magnesium 1.9 mg/dL (1.8-2.4); PHOSPHORUS 3.6 mg/dL (2.6-4.7); Potassium 4.4 mmol/L (3.5-5.1); Sodium 139 mmol/L (136-145); Total Protein 7.3 g/dL (6.4-8.2)
[2022-06-19 09:33] LABS: Triglyceride 55 mg/dL (<150)
[2022-06-20 10:03] LABS: Prealbumin 19 mg/dL (20-40)
== END 2022-06-22 23:59 | disposition home or self-care (01) ==
LOC: INF 01:53
PROVIDERS: PCP Family Medicine; Visit Provider Internal Medicine Gastroenterology
DX: K91.2 Postsurgical malabsorption, not elsewhere classified (principal); Z78.9 Other specified health status; Z86.39 Personal history of other endocrine, nutritional and metabolic disease
CPT/HCPCS: 36591; 80053; 85027; 83735; 84100; 84134; 84478

== ENCOUNTER 2022-07-16 01:13 | Outpatient (RCR) | payer BC, SELFPAY ==
[2022-06-27] MEDS: Normal Saline Flush 10 ML SYR IVP (11:55)
[2022-07-02] MEDS: IRON SUCROSE COMPLEX 200 MG in Normal Saline 100 ML 440 MG IVPB (08:05)
[2022-07-02] MEDS: Normal Saline Flush 10 ML SYR IVP (08:38)
[2022-07-02] MEDS: Heparin 500 UNITS/5 ML SYRINGE IVP (08:40)
[2022-07-02 08:44] LABS: HCT 36.5 % (36.0-46.0); HGB 12.1 g/dL (11.2-15.7); MCH 28.4 pg (27.0-33.0); MCHC 33.2 % (32.0-36.0); MCV 86 fL (80-95); MPV 10.3 fL (8.0-11.0); Platelet Count 206 10^3/uL (130-400); RBC 4.26 10^6/uL (3.93-5.22); RDW 15.4 % (11.7-14.6); RDW-SD 48.3 fL; WBC 6.49 10^3/uL (4.4-10.8)
[2022-07-02 08:54] LABS: ALT 51 U/L (14-59); AST 25 U/L (15-37); Albumin 2.9 g/dL (3.4-5.0); Alkaline Phosphatase 186 U/L (46-116); Anion Gap 5.3 mmol/L (3-11); BUN 20 mg/dL (7-18); Bilirubin, Total 0.4 mg/dL (0.2-1.0); CO2 29.7 mmol/L (21.0-32.0); CREATININE 0.6 mg/dL (0.55-1.02); Calcium 8.6 mg/dL (8.5-10.1); Chloride 102 mmol/L (98-107); Estimated GFR 105.28 (mL/min/1.73m2); Glucose 96 mg/dL (74-106); Potassium 4.2 mmol/L (3.5-5.1); Sodium 137 mmol/L (136-145); Triglyceride 66 mg/dL (<150)
[2022-07-02 09:17] LABS: Iron 62 ug/dL (50-170); Total Iron Binding Capacity 262 ug/dL (250-450); Transferrin Sat 24 % (15-50)
[2022-07-02 09:19] LABS: Folate 18.8 ng/mL (8.6-20.0); Vitamin B12 532 pg/mL (193-986)
[2022-07-02 09:32] LABS: Vitamin D 25 Total 7.6 ng/mL (30-100)
[2022-07-03 22:57] LABS: Chromium, Serum 0.6 ng/mL (<0.3)
[2022-07-04 12:26] LABS: Free Retinol (Vitamin A) 36.8 mcg/dL (32.5-78.0)
[2022-07-04 12:49] LABS: Prealbumin 18 mg/dL (20-40)
[2022-07-04 15:12] LABS: Copper, Serum 65 mcg/dL (77-206); Selenium, Serum 109 mcg/L (110-165); Zinc, S 84 mcg/dL (60-106)
[2022-07-05 15:36] LABS: Methylmalonic Acid 0.42 nmol/mL (<=0.40)
[2022-07-10] MEDS: Normal Saline Flush 10 ML SYR IVP (08:07)
[2022-07-10 13:03] LABS: Manganese, Serum 0.6 ng/mL (0.5-1.2)
[2022-07-16] MEDS: Heparin 500 UNITS/5 ML SYRINGE IVP (08:11)
[2022-07-16] MEDS: Normal Saline Flush 10 ML SYR IVP (08:11)
[2022-07-16 08:34] LABS: HCT 37.1 % (36.0-46.0); HGB 12.1 g/dL (11.2-15.7); MCH 28.6 pg (27.0-33.0); MCHC 32.6 % (32.0-36.0); MCV 88 fL (80-95); Platelet Count 220 10^3/uL (130-400); RBC 4.23 10^6/uL (3.93-5.22); RDW 15.7 % (11.7-14.6); RDW-SD 50.5 fL
[2022-07-16 08:54] LABS: ALT 51 U/L (14-59); AST 22 U/L (15-37); Albumin 2.8 g/dL (3.4-5.0); Alkaline Phosphatase 193 U/L (46-116); BUN 16 mg/dL (7-18); Bilirubin, Total 0.3 mg/dL (0.2-1.0); CREATININE 0.5 mg/dL (0.55-1.02); Calcium 8.7 mg/dL (8.5-10.1); Chloride 103 mmol/L (98-107); Estimated GFR 110.01 (mL/min/1.73m2); Glucose 103 mg/dL (74-106); Magnesium 1.9 mg/dL (1.8-2.4); PHOSPHORUS 3.7 mg/dL (2.6-4.7); Potassium 4.6 mmol/L (3.5-5.1); Sodium 136 mmol/L (136-145); Total Protein 7.1 g/dL (6.4-8.2)
[2022-07-16 09:22] LABS: Triglyceride 59 mg/dL (<150)
[2022-07-17 09:59] LABS: Prealbumin 17 mg/dL (20-40)
== END 2022-07-22 23:59 | disposition home or self-care (01) ==
LOC: INF 01:13
PROVIDERS: PCP Family Medicine; Visit Provider Internal Medicine Gastroenterology
DX: K91.2 Postsurgical malabsorption, not elsewhere classified (principal); Z78.9 Other specified health status; Z86.39 Personal history of other endocrine, nutritional and metabolic disease; D50.9 Iron deficiency anemia, unspecified; E61.0 Copper deficiency; Z45.2 Encounter for adjustment and management of vascular access device
CPT/HCPCS: 36591; 80053; 80186; 82306; 82525; 84630; 85027; 96365; 82495; 82607; 82746; 83540; 83550; 83735; 83785; 84100; 84134; 84255; 84446; 84478; 84590; J1756

== ENCOUNTER 2022-08-21 03:16 | Outpatient (RCR) | payer BC, SELFPAY ==
[2022-07-23] MEDS: Normal Saline Flush 10 ML SYR IVP (08:30)
[2022-07-30] MEDS: IRON SUCROSE COMPLEX 200 MG in Normal Saline 100 ML 440 MG IVPB (08:27)
[2022-07-30] MEDS: Normal Saline Flush 10 ML SYR IVP (08:47)
[2022-07-30 09:03] LABS: HCT 35.5 % (36.0-46.0); HGB 11.9 g/dL (11.2-15.7); MCH 29.5 pg (27.0-33.0); MCHC 33.5 % (32.0-36.0); MCV 88 fL (80-95); MPV 10.7 fL (8.0-11.0); Platelet Count 205 10^3/uL (130-400); RBC 4.03 10^6/uL (3.93-5.22); RDW 15.2 % (11.7-14.6); RDW-SD 50.1 fL; WBC 6.31 10^3/uL (4.4-10.8)
[2022-07-30] MEDS: Heparin 500 UNITS/5 ML SYRINGE IV (09:49)
[2022-07-30 09:55] LABS: ALT 52 U/L (14-59); AST 19 U/L (15-37); Albumin 2.7 g/dL (3.4-5.0); Alkaline Phosphatase 188 U/L (46-116); BUN 23 mg/dL (7-18); Bilirubin, Total 0.4 mg/dL (0.2-1.0); CREATININE 0.5 mg/dL (0.55-1.02); Calcium 8.3 mg/dL (8.5-10.1); Chloride 101 mmol/L (98-107); Estimated GFR 110.01 (mL/min/1.73m2); Glucose 107 mg/dL (74-106); PHOSPHORUS 3.6 mg/dL (2.6-4.7); Potassium 4.6 mmol/L (3.5-5.1); Sodium 136 mmol/L (136-145)
[2022-07-30 10:23] LABS: Triglyceride 37 mg/dL (<150)
[2022-07-31 10:01] LABS: Prealbumin 15 mg/dL (20-40)
[2022-08-06] MEDS: Normal Saline Flush 10 ML SYR IVP (08:12)
[2022-08-13] MEDS: Heparin 500 UNITS/5 ML SYRINGE IV (08:32)
[2022-08-13] MEDS: Normal Saline Flush 10 ML SYR IVP (08:32)
[2022-08-13 08:45] LABS: HCT 37.4 % (36.0-46.0); HGB 12.3 g/dL (11.2-15.7); MCH 29.1 pg (27.0-33.0); MCHC 32.9 % (32.0-36.0); MCV 89 fL (80-95); MPV 10.5 fL (8.0-11.0); Platelet Count 235 10^3/uL (130-400); RBC 4.22 10^6/uL (3.93-5.22); RDW 14.4 % (11.7-14.6); RDW-SD 46.7 fL; WBC 6.49 10^3/uL (4.4-10.8)
[2022-08-13 09:08] LABS: ALT 47 U/L (14-59); AST 22 U/L (15-37); Alkaline Phosphatase 214 U/L (46-116); Anion Gap 3.6 mmol/L (3-11); BUN 17 mg/dL (7-18); Bilirubin, Total 0.3 mg/dL (0.2-1.0); CO2 27.4 mmol/L (21.0-32.0); CREATININE 0.6 mg/dL (0.55-1.02); Calcium 8.4 mg/dL (8.5-10.1); Chloride 101 mmol/L (98-107); Estimated GFR 105.28 (mL/min/1.73m2); Glucose 105 mg/dL (74-106); Magnesium 1.7 mg/dL (1.8-2.4); Potassium 4.1 mmol/L (3.5-5.1); Sodium 132 mmol/L (136-145); Total Protein 7.4 g/dL (6.4-8.2); Triglyceride 57 mg/dL (<150)
[2022-08-13 09:20] LABS: PHOSPHORUS 3.5 mg/dL (2.6-4.7)
[2022-08-14 09:49] LABS: Prealbumin 18 mg/dL (20-40)
[2022-08-21] MEDS: Normal Saline Flush 10 ML SYR IVP (08:33)
== END 2022-08-22 23:59 | disposition home or self-care (01) ==
LOC: INF 03:16
PROVIDERS: PCP Family Medicine; Visit Provider Internal Medicine Gastroenterology
DX: Z45.2 Encounter for adjustment and management of vascular access device (principal); K91.2 Postsurgical malabsorption, not elsewhere classified; Z78.9 Other specified health status; Z86.39 Personal history of other endocrine, nutritional and metabolic disease
CPT/HCPCS: 36591; 80053; 85027; 96365; 83735; 84100; 84134; 84478; J1756

== ENCOUNTER 2022-09-17 02:45 | Outpatient (RCR) | payer BC, SELFPAY ==
[2022-08-27] MEDS: Heparin 500 UNITS/5 ML SYRINGE IV (08:12)
[2022-08-27] MEDS: IRON SUCROSE COMPLEX 200 MG in Normal Saline 100 ML 440 MG IVPB (08:12)
[2022-08-27] MEDS: Normal Saline Flush 10 ML SYR IVP (08:13)
[2022-08-27 08:33] LABS: HCT 37.6 % (36.0-46.0); HGB 12.6 g/dL (11.2-15.7); MCH 29.3 pg (27.0-33.0); MCHC 33.5 % (32.0-36.0); MCV 87 fL (80-95); MPV 10.3 fL (8.0-11.0); Platelet Count 212 10^3/uL (130-400); RDW 14.2 % (11.7-14.6); RDW-SD 45.8 fL; WBC 5.87 10^3/uL (4.4-10.8)
[2022-08-27 08:46] LABS: ALT 68 U/L (14-59); AST 33 U/L (15-37); Albumin 2.9 g/dL (3.4-5.0); Alkaline Phosphatase 223 U/L (46-116); Anion Gap 6.9 mmol/L (3-11); BUN 18 mg/dL (7-18); Bilirubin, Total 0.4 mg/dL (0.2-1.0); CO2 29.1 mmol/L (21.0-32.0); CREATININE 0.6 mg/dL (0.55-1.02); Calcium 8.4 mg/dL (8.5-10.1); Chloride 102 mmol/L (98-107); Estimated GFR 105.28 (mL/min/1.73m2); Glucose 101 mg/dL (74-106); Magnesium 1.9 mg/dL (1.8-2.4); PHOSPHORUS 3.8 mg/dL (2.6-4.7); Potassium 4.3 mmol/L (3.5-5.1); Sodium 138 mmol/L (136-145); Total Protein 7.1 g/dL (6.4-8.2)
[2022-08-27 08:58] LABS: Triglyceride 53 mg/dL (<150)
[2022-08-28 10:02] LABS: Prealbumin 16 mg/dL (20-40)
[2022-09-03] MEDS: Normal Saline Flush 10 ML SYR IVP (08:43)
[2022-09-11 14:06] LABS: HCT 38.9 % (36.0-46.0); HGB 12.9 g/dL (11.2-15.7); MCH 29.4 pg (27.0-33.0); MCHC 33.2 % (32.0-36.0); MCV 89 fL (80-95); MPV 10.7 fL (8.0-11.0); Platelet Count 209 10^3/uL (130-400); RBC 4.39 10^6/uL (3.93-5.22); RDW 14.3 % (11.7-14.6)
[2022-09-11 14:25] LABS: ALT 75 U/L (14-59); AST 30 U/L (15-37); Albumin 3.1 g/dL (3.4-5.0); Alkaline Phosphatase 224 U/L (46-116); Anion Gap 10.7 mmol/L (3-11); BUN 19 mg/dL (7-18); Bilirubin, Total 0.4 mg/dL (0.2-1.0); CO2 25.3 mmol/L (21.0-32.0); CREATININE 0.6 mg/dL (0.55-1.02); Calcium 8.8 mg/dL (8.5-10.1); Chloride 107 mmol/L (98-107); Estimated GFR 105.28 (mL/min/1.73m2); Glucose 109 mg/dL (74-106); Magnesium 1.8 mg/dL (1.8-2.4); Sodium 143 mmol/L (136-145); Total Protein 7.8 g/dL (6.4-8.2); Triglyceride 57 mg/dL (<150)
[2022-09-11] MEDS: Normal Saline Flush 10 ML SYR IVP (14:28)
[2022-09-11 14:46] LABS: PHOSPHORUS 3.6 mg/dL (2.6-4.7)
[2022-09-12 09:48] LABS: Prealbumin 19 mg/dL (20-40)
== END 2022-09-21 23:59 | disposition home or self-care (01) ==
LOC: INF 02:45
PROVIDERS: PCP Family Medicine; Visit Provider Internal Medicine Gastroenterology
DX: K91.2 Postsurgical malabsorption, not elsewhere classified (principal); Z78.9 Other specified health status; Z86.39 Personal history of other endocrine, nutritional and metabolic disease; D50.9 Iron deficiency anemia, unspecified
CPT/HCPCS: 36592; 80053; 85027; 96365; 83735; 84100; 84134; 84478; J1756

== ENCOUNTER 2022-10-22 01:55 | Outpatient (RCR) | payer BC, SELFPAY ==
[2022-09-24] MEDS: IRON SUCROSE COMPLEX 200 MG in Normal Saline 100 ML 440 MG IVPB (08:30)
[2022-09-24] MEDS: Normal Saline Flush 10 ML SYR IVP (08:31)
[2022-09-24 09:13] LABS: HCT 36.3 % (36.0-46.0); HGB 12.1 g/dL (11.2-15.7); MCH 29.6 pg (27.0-33.0); MCHC 33.3 % (32.0-36.0); MCV 89 fL (80-95); MPV 10.6 fL (8.0-11.0); Platelet Count 205 10^3/uL (130-400); RBC 4.09 10^6/uL (3.93-5.22); RDW 14.5 % (11.7-14.6); RDW-SD 47.1 fL
[2022-09-24 09:45] LABS: ALT 70 U/L (14-59); AST 29 U/L (15-37); Albumin 2.9 g/dL (3.4-5.0); Alkaline Phosphatase 201 U/L (46-116); Anion Gap 7.1 mmol/L (3-11); BUN 23 mg/dL (7-18); Bilirubin, Total 0.5 mg/dL (0.2-1.0); CO2 25.9 mmol/L (21.0-32.0); CREATININE 0.6 mg/dL (0.55-1.02); Calcium 8.3 mg/dL (8.5-10.1); Chloride 104 mmol/L (98-107); Estimated GFR 105.28 (mL/min/1.73m2); FREE T4 0.73 ng/dL (0.76-1.46); Glucose 97 mg/dL (74-106); Magnesium 1.6 mg/dL (1.8-2.4); PHOSPHORUS 3.5 mg/dL (2.6-4.7); Potassium 4.2 mmol/L (3.5-5.1); Sodium 137 mmol/L (136-145); TSH 19.73 uIU/mL (0.36-3.74); Total Protein 7.1 g/dL (6.4-8.2)
[2022-09-24 09:55] LABS: Triglyceride 59 mg/dL (<150)
[2022-09-25 09:21] LABS: Prealbumin 18 mg/dL (20-40)
[2022-10-01] MEDS: Normal Saline Flush 10 ML SYR IVP (08:24)
[2022-10-08] MEDS: Normal Saline Flush 10 ML SYR IVP (08:26)
[2022-10-08 09:14] LABS: HGB 12.6 g/dL (11.2-15.7); MCH 29.8 pg (27.0-33.0); MCHC 33.2 % (32.0-36.0); MCV 90 fL (80-95); MPV 10.4 fL (8.0-11.0); Platelet Count 206 10^3/uL (130-400); RBC 4.23 10^6/uL (3.93-5.22); RDW 14.5 % (11.7-14.6); RDW-SD 47.8 fL; WBC 5.95 10^3/uL (4.4-10.8)
[2022-10-08 09:28] LABS: ALT 64 U/L (14-59); AST 26 U/L (15-37); Albumin 3.1 g/dL (3.4-5.0); Alkaline Phosphatase 202 U/L (46-116); Anion Gap 6.7 mmol/L (3-11); BUN 25 mg/dL (7-18); Bilirubin, Total 0.5 mg/dL (0.2-1.0); CO2 28.3 mmol/L (21.0-32.0); CREATININE 0.6 mg/dL (0.55-1.02); Calcium 8.5 mg/dL (8.5-10.1); Chloride 105 mmol/L (98-107); Estimated GFR 105.28 (mL/min/1.73m2); Glucose 101 mg/dL (74-106); PHOSPHORUS 3.5 mg/dL (2.6-4.7); Potassium 4.5 mmol/L (3.5-5.1); Sodium 140 mmol/L (136-145); Total Protein 7.3 g/dL (6.4-8.2)
[2022-10-08 09:47] LABS: Triglyceride 56 mg/dL (<150)
[2022-10-09 09:44] LABS: Magnesium 1.8 mg/dL (1.8-2.4)
[2022-10-09 13:00] LABS: Prealbumin 20 mg/dL (20-40)
[2022-10-22] MEDS: Normal Saline Flush 10 ML SYR IVP (08:18)
[2022-10-22 08:32] LABS: HGB 12.1 g/dL (11.2-15.7); MCH 30.2 pg (27.0-33.0); MCHC 33.6 % (32.0-36.0); MCV 90 fL (80-95); MPV 10.8 fL (8.0-11.0); Platelet Count 182 10^3/uL (130-400); RBC 4.01 10^6/uL (3.93-5.22); RDW 14.4 % (11.7-14.6); RDW-SD 47.3 fL; WBC 5.89 10^3/uL (4.4-10.8)
[2022-10-22 08:57] LABS: ALT 73 U/L (14-59); AST 27 U/L (15-37); Albumin 2.8 g/dL (3.4-5.0); Alkaline Phosphatase 190 U/L (46-116); Anion Gap 7.3 mmol/L (3-11); BUN 24 mg/dL (7-18); Bilirubin, Total 0.5 mg/dL (0.2-1.0); CO2 29.7 mmol/L (21.0-32.0); CREATININE 0.5 mg/dL (0.55-1.02); Calcium 8.7 mg/dL (8.5-10.1); Chloride 103 mmol/L (98-107); Estimated GFR 110.01 (mL/min/1.73m2); Glucose 102 mg/dL (74-106); Magnesium 1.9 mg/dL (1.8-2.4); Potassium 4.7 mmol/L (3.5-5.1); Sodium 140 mmol/L (136-145); Total Protein 6.7 g/dL (6.4-8.2); Triglyceride 49 mg/dL (<150)
[2022-10-22 09:14] LABS: PHOSPHORUS 3.6 mg/dL (2.6-4.7)
[2022-10-23 09:02] LABS: Prealbumin 16 mg/dL (20-40)
== END 2022-10-22 23:59 | disposition home or self-care (01) ==
LOC: INF 01:55
PROVIDERS: PCP Family Medicine; Visit Provider Internal Medicine Gastroenterology
DX: K91.2 Postsurgical malabsorption, not elsewhere classified (principal); Z78.9 Other specified health status; Z86.39 Personal history of other endocrine, nutritional and metabolic disease
CPT/HCPCS: 36592; 80053; 85027; 96365; 83735; 84100; 84134; 84439; 84443; 84478; J1756

== ENCOUNTER 2022-11-19 08:00 | Outpatient (RCR) | payer BC, SELFPAY ==
[2022-10-29] MEDS: Normal Saline Flush 10 ML SYR IVP (08:15)
[2022-11-05] MEDS: Normal Saline Flush 10 ML SYR IVP (07:49)
[2022-11-05 08:05] LABS: HGB 12.9 g/dL (11.2-15.7); MCH 30.3 pg (27.0-33.0); MCHC 33.1 % (32.0-36.0); MCV 92 fL (80-95); MPV 10.3 fL (8.0-11.0); Platelet Count 212 10^3/uL (130-400); RBC 4.26 10^6/uL (3.93-5.22); RDW 13.9 % (11.7-14.6); RDW-SD 47.1 fL; WBC 6.18 10^3/uL (4.4-10.8)
[2022-11-05 08:32] LABS: ALT 84 U/L (14-59); AST 50 U/L (15-37); Albumin 3.1 g/dL (3.4-5.0); Alkaline Phosphatase 207 U/L (46-116); Anion Gap 9.2 mmol/L (3-11); BUN 18 mg/dL (7-18); Bilirubin, Total 0.6 mg/dL (0.2-1.0); CO2 25.8 mmol/L (21.0-32.0); CREATININE 0.6 mg/dL (0.55-1.02); Calcium 8.9 mg/dL (8.5-10.1); Chloride 102 mmol/L (98-107); Estimated GFR 105.28 (mL/min/1.73m2); Glucose 95 mg/dL (74-106); Magnesium 1.6 mg/dL (1.8-2.4); Potassium 4.2 mmol/L (3.5-5.1); Sodium 137 mmol/L (136-145); Total Protein 7.5 g/dL (6.4-8.2); Triglyceride 98 mg/dL (<150)
[2022-11-05 08:48] LABS: PHOSPHORUS 3.5 mg/dL (2.6-4.7)
[2022-11-06 09:49] LABS: Prealbumin 18 mg/dL (20-40)
[2022-11-12] MEDS: IRON SUCROSE COMPLEX 200 MG in Normal Saline 100 ML 440 MG IVPB (09:33)
[2022-11-12] MEDS: Normal Saline Flush 10 ML SYR IVP (09:38)
[2022-11-19] MEDS: Normal Saline Flush 10 ML SYR IVP (08:32)
[2022-11-19 09:00] LABS: HCT 39.3 % (36.0-46.0); MCH 30.9 pg (27.0-33.0); MCHC 33.1 % (32.0-36.0); MCV 93 fL (80-95); MPV 11.1 fL (8.0-11.0); Platelet Count 212 10^3/uL (130-400); RBC 4.21 10^6/uL (3.93-5.22); RDW 13.6 % (11.7-14.6); RDW-SD 46.3 fL; WBC 6.12 10^3/uL (4.4-10.8)
[2022-11-19 09:19] LABS: ALT 118 U/L (14-59); AST 53 U/L (15-37); Albumin 3.2 g/dL (3.4-5.0); Alkaline Phosphatase 204 U/L (46-116); Anion Gap 9.8 mmol/L (3-11); BUN 27 mg/dL (7-18); Bilirubin, Total 0.5 mg/dL (0.2-1.0); CO2 24.2 mmol/L (21.0-32.0); CREATININE 0.6 mg/dL (0.55-1.02); Calcium 8.6 mg/dL (8.5-10.1); Chloride 104 mmol/L (98-107); Estimated GFR 105.28 (mL/min/1.73m2); Glucose 119 mg/dL (74-106); Magnesium 1.9 mg/dL (1.8-2.4); Potassium 4.4 mmol/L (3.5-5.1); Sodium 138 mmol/L (136-145); Total Protein 7.7 g/dL (6.4-8.2); Triglyceride 48 mg/dL (<150)
[2022-11-19 09:31] LABS: PHOSPHORUS 3.4 mg/dL (2.6-4.7)
[2022-11-20 10:06] LABS: Prealbumin 19 mg/dL (20-40)
== END 2022-11-22 23:59 | disposition home or self-care (01) ==
LOC: INF 08:00
PROVIDERS: PCP Family Medicine; Visit Provider Internal Medicine Gastroenterology
DX: K91.2 Postsurgical malabsorption, not elsewhere classified (principal); Z78.9 Other specified health status; Z86.39 Personal history of other endocrine, nutritional and metabolic disease
CPT/HCPCS: 36592; 80053; 85027; 96365; 83735; 84100; 84134; 84478; J1756

== ENCOUNTER 2022-12-21 02:49 | Outpatient (RCR) | payer BC, SELFPAY ==
[2022-11-23] MEDS: Normal Saline Flush 10 ML SYR IVP (07:49)
[2022-11-30] MEDS: Normal Saline Flush 10 ML SYR IVP (08:45)
[2022-11-30 09:04] LABS: HCT 37.6 % (36.0-46.0); HGB 12.4 g/dL (11.2-15.7); MCH 30.4 pg (27.0-33.0); MCV 92 fL (80-95); MPV 10.9 fL (8.0-11.0); Platelet Count 192 10^3/uL (130-400); RBC 4.08 10^6/uL (3.93-5.22); RDW 13.5 % (11.7-14.6); RDW-SD 45.8 fL; WBC 5.57 10^3/uL (4.4-10.8)
[2022-11-30 09:33] LABS: ALT 97 U/L (14-59); AST 45 U/L (15-37); Albumin 3.1 g/dL (3.4-5.0); Alkaline Phosphatase 198 U/L (46-116); Anion Gap 9.2 mmol/L (3-11); BUN 22 mg/dL (7-18); Bilirubin, Total 0.6 mg/dL (0.2-1.0); CO2 25.8 mmol/L (21.0-32.0); CREATININE 0.6 mg/dL (0.55-1.02); Calcium 8.5 mg/dL (8.5-10.1); Chloride 103 mmol/L (98-107); Estimated GFR 105.28 (mL/min/1.73m2); Glucose 100 mg/dL (74-106); Magnesium 1.8 mg/dL (1.8-2.4); PHOSPHORUS 3.9 mg/dL (2.6-4.7); Sodium 138 mmol/L (136-145); Total Protein 7.2 g/dL (6.4-8.2)
[2022-11-30 09:44] LABS: Triglyceride 50 mg/dL (<150)
[2022-12-03 10:08] LABS: Prealbumin 17 mg/dL (20-40)
[2022-12-07] MEDS: Normal Saline Flush 10 ML SYR IVP (08:46)
[2022-12-14] MEDS: Normal Saline Flush 10 ML SYR IVP (08:03)
[2022-12-14 08:16] LABS: Abs Immature Grans 0.02 10^3/uL (0.0-0.06); Absolute Basophil Count 0.13 10^3/uL (0.0-0.2); Absolute Eosinophil Count 0.42 10^3/uL (0.0-0.7); Absolute Lymphocyte Count 2.53 10^3/uL (1.2-3.4); Absolute Monocyte Count 0.61 10^3/uL (0.1-0.8); Absolute Neutrophil Count 2.36 10^3/uL (1.2-6.7); Basophils % 2.1; Eosinophils % 6.9; HCT 36.9 % (36.0-46.0); HGB 12.2 g/dL (11.2-15.7); Immature Grans % 0.3; Lymphocytes % 41.7; MCHC 33.1 % (32.0-36.0); MCV 94 fL (80-95); MPV 11.1 fL (8.0-11.0); Platelet Count 222 10^3/uL (130-400); RBC 3.94 10^6/uL (3.93-5.22); RDW 13.4 % (11.7-14.6); RDW-SD 45.8 fL; WBC 6.07 10^3/uL (4.4-10.8)
[2022-12-14 08:36] LABS: ALT 85 U/L (14-59); AST 33 U/L (15-37); Alkaline Phosphatase 191 U/L (46-116); Anion Gap 7.8 mmol/L (3-11); BUN 22 mg/dL (7-18); Bilirubin, Total 0.4 mg/dL (0.2-1.0); C-Reactive Protein 0.15 mg/dL (0.0-0.3); CO2 27.2 mmol/L (21.0-32.0); CREATININE 0.5 mg/dL (0.55-1.02); Calcium 8.7 mg/dL (8.5-10.1); Chloride 102 mmol/L (98-107); Estimated GFR 110.01 (mL/min/1.73m2); Glucose 102 mg/dL (74-106); Magnesium 1.9 mg/dL (1.8-2.4); Potassium 4.5 mmol/L (3.5-5.1); Sodium 137 mmol/L (136-145); Total Protein 6.9 g/dL (6.4-8.2); Triglyceride 48 mg/dL (<150)
[2022-12-14 08:46] LABS: PHOSPHORUS 3.9 mg/dL (2.6-4.7)
[2022-12-17 10:29] LABS: Prealbumin 20 mg/dL (20-40)
[2022-12-21] MEDS: IRON SUCROSE COMPLEX 200 MG in Normal Saline 100 ML 440 MG IVPB (08:12)
[2022-12-21] MEDS: Normal Saline Flush 10 ML SYR IVP (08:17)
== END 2022-12-22 23:59 | disposition home or self-care (01) ==
LOC: INF 02:49
PROVIDERS: PCP Family Medicine; Visit Provider Internal Medicine Gastroenterology
DX: Z78.9 Other specified health status (principal); K91.2 Postsurgical malabsorption, not elsewhere classified; Z86.39 Personal history of other endocrine, nutritional and metabolic disease
CPT/HCPCS: 36592; 80053; 85027; 96365; 83735; 84100; 84134; 84478; 85025; 86140; J1756

== ENCOUNTER 2023-01-03 19:52 | Emergency (ER) | payer BC, SELFPAY ==
[2023-01-03 19:55] VITALS: BP 109/73; PULSE 150; RESP 18; TEMP 37.8; O2SAT 95
--- NOTE | 2023-01-03 20:00 | DI.RAD_ITS ---
Exam(s) XR CHEST 2V PA LATERAL EXAM: XR CHEST 2V PA LATERAL CLINICAL HISTORY: fever, port for TPN TECHNIQUE: 2D digital imaging was performed. COMPARISON: CR,XR XR CHEST 2V PA LATERAL from 06/19/2021 FINDINGS: Port over right chest with tip in SVC. HEART: Normal size. Aorta: Not dilated. PULMONARY VASCULATURE: Normal. LUNGS: Clear. PLEURAL SPACE: No pleural effusion or pneumothorax. BONE:Unremarkable for age. IMPRESSION: No acute abnormality. DATA REPOSITORY: RADIATION DOSE DELIVERED:
[2023-01-03] MEDS: Normal Saline 1,000 ML 1000 ML IV (20:39)
--- NOTE | 2023-01-03 20:41 | ED.GENADUL_ITS ---
Discharge Plan Disposition Patient Disposition: Home Condition: Improving Discharge Details Chief Complaint: Fever Clinical Impression: Fever Primary Care Provider: Robbie Philippe ED Provider: Ramón Martinez Home Meds and New Rx's Prescriptions: No Action Creon 3,000-9,500- 15,000 unit capsule,delayed release(DR/EC) 1 cap PO AC colestipol 1 gram tablet 1 gm PO ONCE Rx Instructions: swallow whole tab w/any liquid;do not crush/chew/cut;administer other meds 1hr before/4hr after taking dose ergocalciferol (vitamin D2) 1,250 mcg (50,000 unit) capsule 1,250 mcg PO QWEEK loperamide [Anti-Diarrheal (loperamide)] 2 mg capsule 2 mg PO Q6H PRN potassium chloride 20 mEq tablet extended release 20 meq PO DAILY albuterol sulfate [Ventolin HFA] 90 mcg/actuation HFA aerosol inhaler 2 puff IH Q4H PRN levothyroxine 125 MCG tablet 2 tab PO BID prochlorperazine maleate 5 MG tablet 1 tab PO DAILY pantoprazole [Protonix] 20 MG tablet,delayed release (DR/EC) 20 mg PO BID multivitamin Tablet 1 tab PO DAILY cyanocobalamin (vitamin B-12) [Vitamin B-12] 500 mcg Tablet 1,000 mcg PO DAILY Qty: 0 0RF Mag 64 64 mg Tablet,Delayed Release (Dr/Ec) 64 mg PO BID Qty: 0 0RF levothyroxine 50 mcg Tablet 50 mcg PO BID fluticasone propion-salmeterol [Advair Diskus] 250-50 mcg/dose Blister With Device 1 inh INHALATION BID PRN Hold Instructions: Changed by Provider cyanocobalamin (vitamin B-12) 1,000 mcg/mL Solution 1,000 mcg IM QMONTH Discharge Instructions Instructions: Fever in Adults (ED) Additional Instructions: Please contact your provider regarding potentially switching TPN formulation. Follow-up closely with your primary care physician. Please return to the emergency department for any worsening symptoms Medical Decision Making 57-year-old female history of short gut TPN dependent presents with fevers and chills after each TPN infusion over the past 2 to 3 days, with symptoms resolvi ng after discontinuation of TPN, port site clean dry intact no induration erythema or fluctuance noted, patient febrile on arrival took Tylenol shortly before arrival, tachycardic, no respiratory symptoms, denies rash nausea vomiting, chronic loose stool, most recently biotics proximally 4 weeks ago for dental implant; consider bacteremia versus viral illness versus must consider pneumonia versus UTI. Low suspicion for ACS PE or aortic pathology. Screening labs cultures 1 set to be drawn from port site, chest x-ray urinalysis, fluid empiric antibiotics disposition pending reassessment and results 22: 59 patient resting comfortably heart rate 90s sinus rhythm on monitor, asymptomatic. Found to be hypomagnesemic, will replete. Urine negative, COVID flu RSV swab negative. High clinical suspicion to reaction to TPN given proximity of symptoms to infusion, patient currently having normal saline and antibiotics running through port without issue. If patient is to be discharged tonight she will be contacted with regards to any positive blood cultures for return. She will contact her GI at [facility] who prescribes her TPN to consider changing formulation. HPI General Date/Time Provider Initiated Documentation: 01/03/23 19:53 . HPI Narrative: 67-year-old female history of short gut syndrome following resection after hernia repair complication presents with fevers chills and rigors in the setting of TPN administration over the past 2 to 3 days, symptoms seem to resolve after discontinuing TPN, no trouble breathing no rash no nausea no vomiting, patient has baseline loose stool, antibiotics within the last 4 weeks for a dental implant, no recent travel no abdominal pain no chest pain. Related Data Home Medications Medication Instructions Recorded Confirmed levothyroxine 125 mcg tablet 2 tab PO BID 03/04/17 08/17/22 pantoprazole 20 mg tablet,delayed 20 mg PO BID 11/04/17 01/03/23 release (Protonix) prochlorperazine maleate 5 mg 1 tab PO DAILY 11/04/17 01/03/23 tablet multivitamin 1 tab PO DAILY 05/27/18 01/03/23 cyanocobalamin (vitamin B-12) 500 1,000 mcg (2 x 500 mcg) PO DAILY 05/28/18 08/17/22 mcg tablet (Vitamin B-12) #0 tabs magnesium chloride 64 mg 64 mg PO BID #0 tabs 05/28/18 01/03/23 (magnesium chloride) tablet,delayed release (Mag 64) cyanocobalamin (vitamin B-12) 1,000 mcg IM QMONTH 11/06/18 01/03/23 1,000 mcg/mL injection solution fluticasone 250 mcg-salmeterol 50 1 inh inhalation BID PRN 11/06/18 01/03/23 mcg/dose blistr powdr for inhalation (Advair Diskus) levothyroxine 50 mcg tablet 50 mcg PO BID 11/06/18 01/03/23 albuterol sulfate 90 mcg/actuation 2 puff inhalation Q4H PRN 11/27/19 01/03/23 aerosol inhaler (Ventolin HFA) colestipol 1 gram tablet 1 gm PO ONCE 11/27/19 01/03/23 ergocalciferol (vitamin D2) 1,250 1,250 mcg PO QWEEK 11/27/19 01/03/23 mcg (50,000 unit) capsule loperamide 2 mg capsule 2 mg PO Q6H PRN 11/27/19 01/03/23 (Anti-Diarrheal (loperamide)) potassium chloride 20 mEq 20 meq PO DAILY 11/27/19 01/03/23 tablet,extended release lipase 3,000-protease 1 cap PO AC 06/05/21 01/03/23 9,500-amylase 15,000 unit capsule, delayed rel (Creon) Previous Rx's Medication Instructions Recorded cyanocobalamin (vitamin B-12) 500 1,000 mcg (2 x 500 mcg) PO DAILY 05/28/18 mcg tablet (Vitamin B-12) #0 tabs magnesium chloride 64 mg 64 mg PO BID #0 tabs 05/28/18 (magnesium chloride) tablet,delayed release (Mag 64) Allergies Allergy/AdvReac Type Severity Reaction Status Date / Time amoxicillin Allergy Severe anaphylasis Verified 01/03/23 20:02 exenatide [From Byetta] AdvReac Severe Nausea Verified 01/03/23 20:02 adhesive tape AdvReac Skin Rash Verified 01/03/23 20:02 codeine AdvReac Nausea Verified 01/03/23 20:02 morphine AdvReac Nausea Verified 01/03/23 20:02 General Stated Complaint: Fever COURTNEY: 3 Review of Systems Narrative: Review of Systems Constitutional: fevers, chills Eyes: negative ENT: negative Cardiovascular: negative Respiratory: negative Gastrointestinal: negative : negative Musculoskeletal: negative Skin: negative Neurologic: negative Psych: negative PFSH All Active Problems (Updated 01/03/23 @ 23:47 by Ramón Martinez MD) Fever (Acute) DVT (deep venous thrombosis) (Chronic) Asthma (Chronic) Hypoalbuminemia (Acute) Hypocalcemia (Acute) Hyperglycemia (Acute) LOGAN (acute kidney injury) (Acute) Chronic pancreatitis (Acute) Hyponatremia (Acute) Leukocytosis (Acute) Hypotension (Acute) Pancreatitis (Chronic) Neutropenic fever (Acute) Anemia (Acute) Short gut syndrome (Chronic) Hypomagnesemia (Acute) Pharyngitis (Acute) Medical History Cardiac murmur LSB-HOLOSYSTOLIC grade II/ As per PCP note 01/10/15 Diabetes Pt. denies having this: I lost 200lbs and it went away Hx of blood clots Pt. states she had a blood clot in her neck 2013 Hypothyroid Intestinal volvulus Lactic acidosis Short gut syndrome Surgical History History of hysterectomy FOR OVARIAN TUMOR W/BILAT OOPHORECTOMY W/UTERUS REMOVED BUT CERVIX REMAINS Incarcerated hernia s/p bowel resection S/P cholecystectomy Tibial plateau fracture (10/30/18) s/p ORIF on 11/10/2018 Family History Other Cancer Diabetes Heart disease Social History Smoking/Tobacco Use Status: Never Smoking risk assessment performed?: Yes Alcohol Intake: former Drug use: Occasionally Substance use type: marijuana Current gender identity: female Do you feel safe at home: Yes Do you feel safe in your relationship?: Yes Exam Narrative Exam Narrative: Physical Examination General: alert, awake, cooperative, resting comfortably, no acute distress HEENT: normocephalic, atraumatic; PERRL, EOM intact, conjunctiva normal; no nasal discharge; moist mucous membranes, oral and pharyngeal mucosa normal, tolerating secretions Neck: supple, trachea midline; full ROM Chest: normal to inspection; port site clean dry intact no erythema or induration Respiratory: normal respiratory effort, speaking in full sentences, clear to auscultation, no wheezing, rales or rhonchi Cardiac: Tachycardia, regular rhythm, S1S2 intact, no murmurs rubs or gallops GI: abdomen soft, non-tender, non-distended; no palpable mass or hepatosplenomegaly Skin: no lesions, rashes or trauma appreciated Neuro: AAOx3, normal speech, moving all extremities Psych: Appropriate mood and affect Course Vital Signs Vital signs: Vital Signs Temperature 37.8 C H 01/03/23 19:55 Pulse 150 H 01/03/23 19:55 Respiratory Rate 18 01/03/23 19:55 Blood Pressure 109/73 01/03/23 19:55 Pulse Oximetry 95 01/03/23 19:55 Temperature 37.8 C H 01/03/23 19:55 Temperature Source Oral 01/03/23 19:55 Pulse 150 H 01/03/23 19:55 Respiratory Rate 18 01/03/23 19:55 Respiratory Effort Normal 01/03/23 19:59 Blood Pressure 109/73 01/03/23 19:55 Blood Pressure Position Sitting 01/03/23 19:55 Pulse Oximetry 95 01/03/23 19:55 Oxygen Delivery Method Room Air 01/03/23 19:55 Oxygen Flow Rate 0 01/03/23 19:55 Lab/Test Results Lab/Test Results: 01/03/23 20:23 Blood Blood Culture - Pending 01/03/23 20:07 Blood Blood Culture - Pending
[2023-01-03 21:02] LABS: Abs Immature Grans 0.01 10^3/uL (0.0-0.06); Absolute Basophil Count 0.05 10^3/uL (0.0-0.2); Absolute Eosinophil Count 0.03 10^3/uL (0.0-0.7); Absolute Lymphocyte Count 0.13 10^3/uL (1.2-3.4); Absolute Monocyte Count 0.02 10^3/uL (0.1-0.8); Basophils % 1.3; Eosinophils % 0.8; HGB 12.5 g/dL (11.2-15.7); Immature Grans % 0.3; Lymphocytes % 3.3; MCH 30.8 pg (27.0-33.0); MCHC 32.9 % (32.0-36.0); MCV 94 fL (80-95); MPV 10.4 fL (8.0-11.0); Monocytes % 0.5; Neutrophils % 93.8; Platelet Count 144 10^3/uL (130-400); RBC 4.06 10^6/uL (3.93-5.22); RDW 13.8 % (11.7-14.6); RDW-SD 47.5 fL; WBC 3.94 10^3/uL (4.4-10.8)
[2023-01-03 21:05] LABS: ALT 196 U/L (14-59); AST 60 U/L (15-37); Albumin 2.8 g/dL (3.4-5.0); Alkaline Phosphatase 301 U/L (46-116); Anion Gap 13.8 mmol/L (3-11); BUN 15 mg/dL (7-18); Bilirubin, Total 0.6 mg/dL (0.2-1.0); CO2 18.2 mmol/L (21.0-32.0); CREATININE 0.7 mg/dL (0.55-1.02); Calcium 8.8 mg/dL (8.5-10.1); Chloride 106 mmol/L (98-107); Estimated GFR 101.44 (mL/min/1.73m2); Glucose 117 mg/dL (74-106); Lipase 17 U/L (16-77); Magnesium 1.3 mg/dL (1.8-2.4); Potassium 3.2 mmol/L (3.5-5.1); Sodium 138 mmol/L (136-145); TSH (W/Ref FT4) 19.34 uIU/mL (0.36-3.74); Total Protein 7.1 g/dL (6.4-8.2)
[2023-01-03 21:22] LABS: FREE T4 0.96 ng/dL (0.76-1.46)
[2023-01-03] MEDS: AZTREONAM 2,000 MG in Normal Saline 100 ML 200 MG IVPB (21:24)
[2023-01-03 21:30] LABS: INR 1.3 (0.9-1.1); PTT Activated 29.5 sec (23.6-32.8); Prothrombin Time 12.4 sec (9.1-11.1)
[2023-01-03 21:37] LABS: Bilirubin Negative (Negative); Blood Trace-lysed (Negative); Clarity Clear (Clear); Glucose Negative (Negative); Ketones Negative (Negative); Leukocyte Esterase Negative (Negative); Nitrite Negative (Negative); Urobilinogen 0.2 mg/dL (Up to 0.2); pH 5.5 (5-8)
[2023-01-03 21:51] LABS: COVID-19 PCR Negative (Negative); Influenza A PCR Negative (Negative); Influenza B PCR Negative (Negative); RSV PCR Negative (Negative)
[2023-01-03 21:54] LABS: Source Nasopharynx
[2023-01-03 21:57] LABS: Bacteria Negative HPF (Negative); C & S Indicated? No; Crystals Negative HPF (Negative); Epithelial Cells Few HPF (Negative); Mucus Moderate (Negative); RBC 0-2 HPF (0-2); WBC 0-2 HPF (0-5)
[2023-01-03] MEDS: VANCOMYCIN 2,000 MG in Normal Saline 500 ML 250 MG IVPB (22:08)
[2023-01-03] MEDS: MAGNESIUM SULFATE 1 GM/100 ML BAG IVPB (22:30)
--- NOTE | 2023-01-03 23:42 | DI.VRAD_ITS ---
PROCEDURE INFORMATION: Exam: XR Chest Exam date and time: 01/03/2023 10:12 PM Age: 57 years old Clinical indication: Fever; Patient HX: Port for tna TECHNIQUE: Imaging protocol: Radiologic exam of the chest. Views: 2 views. COMPARISON: CR XR CHEST 2V PA LATERAL 06/19/2021 5:18 PM FINDINGS: Right IJ central venous catheter at the cavoatrial junction Lungs: Unremarkable. No consolidation. Pleural spaces: Minimal right pleural effusion. No pneumothorax. Heart/Mediastinum: No cardiomegaly. Bones/joints: Unremarkable. Fluid levels in the bowel in the left upper quadrant Surgical clips in the right upper quadrant IMPRESSION: Minimal right pleural fluid Nonspecific fluid levels in the left upper quadrant bowel which may represent mild enteritis/ileus Dictated and Authenticated by: Antelmo Jasso MD. Ordering:ADELINA Melgar MD
[2023-01-03 23:47] VITALS: PULSE 86; RESP 22; O2SAT 95
[2023-01-03 23:50] VITALS: PULSE 86; RESP 29; O2SAT 97
[2023-01-04] VITALS: BP 82/51; PULSE 85; PULSE 87; RESP 21; O2SAT 95
[2023-01-04 00:01] VITALS: PULSE 88; RESP 27; O2SAT 94
[2023-01-04 00:15] VITALS: BP 82/51; PULSE 85; RESP 27; TEMP 37.1; O2SAT 94
== END 2023-01-04 00:15 | disposition home or self-care (01) ==
PROVIDERS: Emergency Provider Emergency Medicine; PCP Family Medicine
DX: R50.9 Fever, unspecified (principal)
CPT/HCPCS: 80053; 83690; 87040; 87077; 87637; 96365; 96366; 96367; 96376; 99284; 71046; 81003; 81015; 83735; 84439; 84443; 85025; 85610; 85730; 87186; J3475

== ENCOUNTER 2023-01-04 05:34 | Inpatient (IN) | payer BC, SELFPAY ==
[2023-01-04] VITALS (9 sets, daily range): BP systolic 83–125; BP diastolic 48–75; PULSE 63–104; RESP 14–19; TEMP 36.8–37.4; O2SAT 94–98
--- NOTE | 2023-01-04 05:50 | W.ED.GENAD ---
Discharge Plan Disposition Patient Disposition: Admit to [facility] Condition: Stable Discharge Details Chief Complaint: GenMedical Clinical Impression: Fever, Bacteremia Primary Care Provider: Robbie Philippe ED Provider: Adrianna Santamaria Home Meds and New Rx's Prescriptions: No Action Creon 3,000-9,500- 15,000 unit capsule,delayed release(DR/EC) 1 cap PO AC colestipol 1 gram tablet 1 gm PO ONCE Rx Instructions: swallow whole tab w/any liquid;do not crush/chew/cut;administer other meds 1hr before/4hr after taking dose ergocalciferol (vitamin D2) 1,250 mcg (50,000 unit) capsule 1,250 mcg PO QWEEK loperamide [Anti-Diarrheal (loperamide)] 2 mg capsule 2 mg PO Q6H PRN potassium chloride 20 mEq tablet extended release 20 meq PO DAILY albuterol sulfate [Ventolin HFA] 90 mcg/actuation HFA aerosol inhaler 2 puff IH Q4H PRN levothyroxine 125 MCG tablet 2 tab PO BID prochlorperazine maleate 5 MG tablet 1 tab PO DAILY pantoprazole [Protonix] 20 MG tablet,delayed release (DR/EC) 20 mg PO BID multivitamin Tablet 1 tab PO DAILY cyanocobalamin (vitamin B-12) [Vitamin B-12] 500 mcg Tablet 1,000 mcg PO DAILY Qty: 0 0RF Mag 64 64 mg Tablet,Delayed Release (Dr/Ec) 64 mg PO BID Qty: 0 0RF levothyroxine 50 mcg Tablet 50 mcg PO BID fluticasone propion-salmeterol [Advair Diskus] 250-50 mcg/dose Blister With Device 1 inh INHALATION BID PRN Hold Instructions: Changed by Provider cyanocobalamin (vitamin B-12) 1,000 mcg/mL Solution 1,000 mcg IM QMONTH Medical Decision Making Urinalysis from last night was normal. Of note, the patient frequently runs a low blood pressure and elevated heart rate. Medical Records Medical records reviewed: Yes I reviewed the patient's medical records. Imaging Data Radiologic Study: Radiologist's impression: Exam(s) PROCEDURE INFORMATION: Exam: XR Chest Exam date and time: 01/03/2023 10:12 PM Age: 57 years old Clinical indication: Fever; Patient HX: Port for tna TECHNIQUE: Imaging protocol: Radiologic exam of the chest. Views: 2 views. COMPARISON: CR XR CHEST 2V PA LATERAL 06/19/2021 5:18 PM FINDINGS: Right IJ central venous catheter at the cavoatrial junction Lungs: Unremarkable. No consolidation. Pleural spaces: Minimal right pleural effusion. No pneumothorax. Heart/Mediastinum: No cardiomegaly. Bones/joints: Unremarkable. Fluid levels in the bowel in the left upper quadrant Surgical clips in the right upper quadrant IMPRESSION: Minimal right pleural fluid Nonspecific fluid levels in the left upper quadrant bowel which may represent mild enteritis/ileus Lab Data Lab results reviewed: Yes I reviewed the patient's lab results. Lab results narrative: Patient's white blood cell count was 9.2 thousand, up from 3.9 thousand last night. Her platelet count went from 117 up to 144. ABG was 7.39 PCO2 of 33 and bicarb of 20. Patient's mag was 1.6 and calcium 8.3. Total protein 6.2, albumin 2.4. AST was 48, ALT 147, and alk phos 239. These were down slightly from the values last night but up overall from prior values. HPI General Date/Time Provider Initiated Documentation: 01/04/23 05:45. HPI Narrative: This 57-year-old female patient presents to the ED after being called by me for positive blood cultures. Patient was seen in the ED yesterday for recurrent fevers. Patient has a central line and then through which she receives TPN for short gut syndrome. 3 days ago she began having rigors every time she gave herself TPN. Initially she did not take her temperature but later on in the week she recorded a fever of 103.3 degrees. She has had diffuse myalgias and skin sensitivity with this. She also has a headache. Her neck hurt a little bit yesterday but she thought this was from the rigors and aches. It feels fine now. She has had no rashes. She reports that she always has some nasal congestion and runny nose after the TPN. This has not changed. She has no other URI symptoms. She has had no chest pain or shortness of breath. She denies abdominal pain, nausea, or vomiting. She has chronic diarrhea that is unchanged. She has had no bloody stool. Both her aerobic and anaerobic blood culture bottles positive for gram-negative rods. Of note, the patient's LFTs were elevated yesterday. She does have some type of stent in her biliary tree. She also has a known heart murmur. She did receive aztreonam and Vanco when she was in the ED yesterday. Related Data Home Medications Medication Instructions Recorded Confirmed levothyroxine 125 mcg tablet 2 tab PO BID 03/04/17 01/04/23 pantoprazole 20 mg tablet,delayed 20 mg PO BID 11/04/17 01/04/23 release (Protonix) prochlorperazine maleate 5 mg 1 tab PO DAILY 11/04/17 01/04/23 tablet multivitamin 1 tab PO DAILY 05/27/18 01/04/23 cyanocobalamin (vitamin B-12) 500 1,000 mcg (2 x 500 mcg) PO DAILY 05/28/18 01/04/23 mcg tablet (Vitamin B-12) #0 tabs magnesium chloride 64 mg 64 mg PO BID #0 tabs 05/28/18 01/04/23 (magnesium chloride) tablet,delayed release (Mag 64) cyanocobalamin (vitamin B-12) 1,000 mcg IM QMONTH 11/06/18 01/04/23 1,000 mcg/mL injection solution fluticasone 250 mcg-salmeterol 50 1 inh inhalation BID PRN 11/06/18 01/04/23 mcg/dose blistr powdr for inhalation (Advair Diskus) levothyroxine 50 mcg tablet 50 mcg PO BID 11/06/18 01/04/23 albuterol sulfate 90 mcg/actuation 2 puff inhalation Q4H PRN 11/27/19 01/04/23 aerosol inhaler (Ventolin HFA) colestipol 1 gram tablet 1 gm PO ONCE 11/27/19 01/04/23 ergocalciferol (vitamin D2) 1,250 1,250 mcg PO QWEEK 11/27/19 01/04/23 mcg (50,000 unit) capsule loperamide 2 mg capsule 2 mg PO Q6H PRN 11/27/19 01/04/23 (Anti-Diarrheal (loperamide)) potassium chloride 20 mEq 20 meq PO DAILY 11/27/19 01/04/23 tablet,extended release lipase 3,000-protease 1 cap PO AC 06/05/21 01/04/23 9,500-amylase 15,000 unit capsule, delayed rel (Creon) Previous Rx's Medication Instructions Recorded cyanocobalamin (vitamin B-12) 500 1,000 mcg (2 x 500 mcg) PO DAILY 05/28/18 mcg tablet (Vitamin B-12) #0 tabs magnesium chloride 64 mg 64 mg PO BID #0 tabs 05/28/18 (magnesium chloride) tablet,delayed release (Mag 64) Allergies Allergy/AdvReac Type Severity Reaction Status Date / Time amoxicillin Allergy Severe anaphylasis Verified 01/04/23 05:44 exenatide [From Byetta] AdvReac Severe Nausea Verified 01/04/23 05:44 adhesive tape AdvReac Skin Rash Verified 01/04/23 05:44 codeine AdvReac Nausea Verified 01/04/23 05:44 morphine AdvReac Nausea Verified 01/04/23 05:44 General COURTNEY: 3 Review of Systems Constitutional Constitutional: Reports chills, Reports fever(s), Denies headache(s) and Denies weakness Comments: rigors, fatigue Eyes Eyes: Denies diplopia and Reports other (no redness) ENT Ears, Nose, Mouth, and Throat: Denies otalgia, Denies headache(s), Denies nasal congestion, Denies nasal discharge, Reports neck pain ( resolved) and Denies sore throat Cardiovascular Cardiovascular: Denies chest pain, Denies palpitations and Denies dyspnea Respiratory Respiratory: Denies cough and Denies dyspnea Gastrointestinal Gastrointestinal: Denies abdominal pain, Denies diarrhea, Denies nausea and Denies vomiting Genitourinary Genitourinary: Denies dysuria Musculoskeletal Musculoskeletal: Reports myalgias, Denies muscle weakness, Reports neck pain ( resolved), Denies numbness and Reports other (edema) Integumentary/Breasts Skin/Breast: Denies change in pigmentation and Denies rash Neurologic Neurologic: Denies headache(s), Denies numbness and Denies weakness Endocrine Endocrine: Denies palpitations PFSH All Active Problems (Updated 01/04/23 @ 07:50 by Adrianna Santamaria MD) Bacteremia (Acute) Fever (Acute) DVT (deep venous thrombosis) (Chronic) Asthma (Chronic) Hypoalbuminemia (Acute) Hypocalcemia (Acute) Hyperglycemia (Acute) LOGNA (acute kidney injury) (Acute) Chronic pancreatitis (Acute) Hyponatremia (Acute) Leukocytosis (Acute) Hypotension (Acute) Pancreatitis (Chronic) Neutropenic fever (Acute) Anemia (Acute) Short gut syndrome (Chronic) Hypomagnesemia (Acute) Pharyngitis (Acute) Medical History Hx of blood clots Pt. states she had a blood clot in her neck 2013 Intestinal volvulus Diabetes Pt. denies having this: I lost 200lbs and it went away Hypothyroid Short gut syndrome Cardiac murmur LSB-HOLOSYSTOLIC grade II/ As per PCP note 01/10/15 Lactic acidosis Surgical History S/P cholecystectomy Incarcerated hernia s/p bowel resection History of hysterectomy FOR OVARIAN TUMOR W/BILAT OOPHORECTOMY W/UTERUS REMOVED BUT CERVIX REMAINS Tibial plateau fracture (10/30/18) s/p ORIF on 11/10/2018 Family History Other Cancer Diabetes Heart disease Social History Smoking/Tobacco Use Status: Never Smoking risk assessment performed?: Yes Alcohol Intake: former Drug use: Occasionally Substance use type: marijuana Housing: house Current gender identity: female Do you feel safe at home: Yes Do you feel safe in your relationship?: Yes Exam Chest Other: Central line site on chest wall is CDI Course Lab/Test Results Lab/Test Results: 01/04/23 05:45 Blood Blood Culture - Pending 01/04/23 05:45 Blood Blood Culture - Pending
[2023-01-04 06:19] LABS: BE (Venous) -5 mmol/L (-2-3); HCO3 (Venous) 20 mmol/L (23-28); HCT 34.9 % (36.0-46.0); HGB 11.8 g/dL (11.2-15.7); MCH 31.2 pg (27.0-33.0); MCHC 33.8 % (32.0-36.0); MCV 92 fL (80-95); MPV 10.5 fL (8.0-11.0); O2 Sat (Venous) 84 %; Platelet Count 117 10^3/uL (130-400); RBC 3.78 10^6/uL (3.93-5.22); RDW-SD 47.7 fL; TCO2 (Venous) 18 mmol/L (24-29); pCO2 (Venous) 33 mmHg (41-51); pH (Venous) 7.39 (7.31-7.41); pO2 (Venous) 48 mmHg
[2023-01-04 06:21] LABS: Lactate 1.1 mmol/L (0.6-1.4)
[2023-01-04] MEDS: Normal Saline 1,000 ML 1000 ML IV (06:27)
[2023-01-04] MEDS: AZTREONAM 2,000 MG in Normal Saline 100 ML 200 MG IVPB (06:28)
[2023-01-04 06:44] LABS: Magnesium 1.6 mg/dL (1.8-2.4)
[2023-01-04 06:55] LABS: ALT 147 U/L (14-59); AST 48 U/L (15-37); Albumin 2.4 g/dL (3.4-5.0); Alkaline Phosphatase 239 U/L (46-116); Anion Gap 10.4 mmol/L (3-11); BUN 13 mg/dL (7-18); Bilirubin, Total 0.6 mg/dL (0.2-1.0); CO2 19.6 mmol/L (21.0-32.0); CREATININE 0.5 mg/dL (0.55-1.02); Calcium 8.3 mg/dL (8.5-10.1); Chloride 107 mmol/L (98-107); Estimated GFR 110.01 (mL/min/1.73m2); Glucose 121 mg/dL (74-106); Potassium 3.6 mmol/L (3.5-5.1); Sodium 137 mmol/L (136-145); Total Protein 6.2 g/dL (6.4-8.2)
[2023-01-04] MEDS: VANCOMYCIN 2,000 MG in Normal Saline 500 ML 250 MG IVPB (07:45)
[2023-01-04] MEDS: ACETAMINOPHEN 1,000 MG/100 ML BTL 400 MG (08:13)
[2023-01-04] MEDS: Omnipaque 350 MG/ML 50 ML BTL PO (08:53)
[2023-01-04] MEDS: Breeza Beverage 473 ML BTL PO (08:56)
[2023-01-04] MEDS: Normal Saline - Diluent 50 ML VIAL IV (10:41)
[2023-01-04] MEDS: Omnipaque 350 MG/ML 500 ML BTL-Imaging package IJ (10:43)
--- NOTE | 2023-01-04 10:45 | DI.CT_ITS ---
Exam(s) CT CHEST/ABD/PEL W EXAM: CT CHEST/ABD/PEL W CLINICAL HISTORY: sepsis. TECHNIQUE: Imaging Protocol: Axial computed tomography images with coronal and sagittal reformatted images were created and reviewed CONTRAST MATERIAL: Intravenous: Omnipaque 350 Contrast volume:100 ml Oral: yes / COMPARISON: CT CT ABDOMEN PELVIS CTA from 06/19/[address] ABDOMEN W from 06/21/2021 CR,XR XR CHEST 2V PA LATERAL from 01/03/2023 FINDINGS: CHEST: Central venous catheter with tip in lower SVC. Tracheobronchial tree: Patent where visualized. Pulmonary parenchyma: Mild basilar atelectasis. Mild right upper lobe scarring. No consolidation or dominant measurable mass. Pleura: No effusion or pneumothorax. Lymph nodes: Within normal limits. Aorta: Thoracic portion non-dilated. Heart: Normal size. No pericardial effusion. Bones: Unremarkable for age. No lytic or blastic lesions.No compression fractures. ABDOMEN and PELVIS: Liver: Normal density. No measurable mass. Gallbladder and biliary tract: No evidence of stones or wall thickening. No biliary dilatation. Pancreas: Normal atrophic. No abnormal calcifications or inflammatory process. No pseudocyst. Spleen: Normal. Kidneys: Normal size, contour and axis. No radiodense stones or obstructive uropathy. No suspicious m asses seen. Adrenal glands: No masses seen. Aorta: Abdominal portion non-dilated. No visible atherosclerotic changes. Portal and splenic veins appear patent without evidence of thrombus. Lymph nodes: Within normal limits. Soft tissues: Unremarkable. Bladder: Unremarkable. Bowel: Mild diverticulosis.. No diverticulitis. A large portion of the small bowel appears to have been resected. A small small bowel is dilated however contrast is seen throughout the colon to the l evel of the rectum. No bowel wall thickening. Small diverticulum of the descending duodenum. Peritoneal cavity: Small amount ascites mass seen around the liver and spleen the diaphragm.. No foc al collection or mesenteric inflammatory response. Bones: Severe compression of the central portion of the L1 vertebral body. This is unchanged from pr ior exam. Reproductive organs: Status post hysterectomy. IMPRESSION: No acute abnormality in the chest. Dilatation of small bowel without evidence of obstruction. Prior small bowel resection. No bowel wa ll thickening. Small amount of ascites. RADIATION DOSE DELIVERED: Total DLP DATA REPOSITORY: All CT scans at this facility are submitted to the National Radiology Data Registry (NRDR) Dose Index Registry (DIR) with the [employer] ([employer]). RADIATION OPTIMIZATION: All CT scans at this facility use at least one of these dose optimization te chniques: automated exposure control; mA and/or kV adjustment per patient size (includes targeted exa ms where dose is matched to clinical indication); or iterative reconstruction.
[2023-01-04] MEDS: Normal Saline Flush 10 ML SYR IVP (12:36)
--- NOTE | 2023-01-04 13:56 | W.PM.HP.N ---
Date of service: 01/04/23 Time of Service: 13:56 Assessment and Plan Assessment and plan (1) Bacteremia: Status: Acute Assessment and plan: unclear source. has mediport which she infuses TPN 4 times weekly. reports her fever and rigors were associated with the TPN infusion which she promptly stopped at the time thinking it was a sensitivity or allergy. consider removal of port additionally she had dental work 3 weeks ago, 2 root implants. (2) Short gut syndrome: Status: Chronic Assessment and plan: Cont home TPN Nutrition consult appreciate. Clear liquids; drinking Ensure clears. (3) Hypothyroid: Status: Chronic Assessment and plan: TSH of 8.04 on 04/14/21 Poor absorption d/t short-gut syndrome. Already high dose of levothyroxine 400mcg daily. (4) Asthma: Status: Chronic Assessment and plan: Home Advair. PRN albuterol MDI and levalbuterol neb prn Stable w/o exacerbation. discussed with DR Suero History of Present Illness History of Present Illness Chief Complaint: fever, chills Narrative: This is a 57-year-old female patient history of short gut syndrome who self administers TPN through a Mediport to meet her nutritional needs in addition to oral intake. She presented last night to the emergency department for reported fever and rigors. She was medically stable but blood culture still pending. She ended up being discharged to home but by morning her blood cultures had turned positive with gram-negative rods in both sets of tubes. She was called to return to the emergency department for reevaluation and admission for IV antibiotics. She arrived hemodynamically stable with a normal white count at 9.2, lactic acid normal at 1.1. She was started on meropenem while ID and sensitivities pending. Repeat blood cultures have been obtained and are pending. CAT scan of the chest abdomen and pelvis was unrevealing. Review of Systems All systems reviewed & are unremarkable except as noted in HPI and below PFSH All Active Problems (Updated 01/06/23 @ 13:46 by Laura Dotson DO) Vascular catheter infection (Acute) Discharge planning issues (Acute) On deep vein thrombosis (DVT) prophylaxis (Acute) Hypothyroid (Chronic) Bacteremia (Acute) Fever (Acute) DVT (deep venous thrombosis) (Chronic) Asthma (Chronic) Hypoalbuminemia (Acute) Hypocalcemia (Acute) Hyperglycemia (Acute) LOGAN (acute kidney injury) (Acute) Chronic pancreatitis (Acute) Hyponatremia (Acute) Leukocytosis (Acute) Hypotension (Acute) Pancreatitis (Chronic) Neutropenic fever (Acute) Anemia (Acute) Short gut syndrome (Chronic) Hypomagnesemia (Acute) Pharyngitis (Acute) Medical History Hx of blood clots Pt. states she had a blood clot in her neck 2013 Intestinal volvulus Diabetes Pt. 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/ As per PCP note 01/10/15 Lactic acidosis Surgical History S/P cholecystectomy Incarcerated hernia s/p bowel resection History of hysterectomy FOR OVARIAN TUMOR W/BILAT OOPHORECTOMY W/UTERUS REMOVED BUT CERVIX REMAINS Tibial plateau fracture (10/30/18) s/p ORIF on 11/10/2018 Family History Other Cancer Diabetes Heart disease Social History Smoking/Tobacco Use Status: Never Smoking risk assessment performed?: Yes Alcohol Intake: former Drug use: Occasionally Substance use type: marijuana Housing: house Current gender identity: female Do you feel safe at home: Yes Do you feel safe in your relationship?: Yes Meds Allergies and Home Medications Allergies Allergy/AdvReac Type Severity Reaction Status Date / Time amoxicillin Allergy Severe anaphylasis Verified 01/04/23 05:44 exenatide [From Byetta] AdvReac Severe Nausea Verified 01/04/23 05:44 adhesive tape AdvReac Skin Rash Verified 01/04/23 05:44 codeine AdvReac Nausea Verified 01/04/23 05:44 morphine AdvReac Nausea Verified 01/04/23 05:44 Home Medications Medication Instructions Recorded Confirmed Type prochlorperazine maleate 5 mg 1 tab PO Q6H PRN nausea 11/04/17 01/04/23 History tablet multivitamin 1 tab PO DAILY 05/27/18 01/04/23 History cyanocobalamin (vitamin B-12) 500 1,000 mcg (2 x 500 mcg) PO DAILY 05/28/18 01/04/23 Rx mcg tablet (Vitamin B-12) #0 tabs magnesium chloride 64 mg 64 mg PO BID #0 tabs 05/28/18 01/04/23 Rx (magnesium chloride) tablet,delayed release (Mag 64) cyanocobalamin (vitamin B-12) 1,000 mcg IM QMONTH 11/06/18 01/04/23 History 1,000 mcg/mL injection solution albuterol sulfate 90 mcg/actuation 2 puff inhalation Q4H PRN 11/27/19 01/04/23 History aerosol inhaler (Ventolin HFA) colestipol 1 gram tablet 1 gm PO ONCE 11/27/19 01/04/23 History ergocalciferol (vitamin D2) 1,250 1,250 mcg PO QWEEK 11/27/19 01/04/23 History mcg (50,000 unit) capsule loperamide 2 mg capsule 2 mg PO Q6H PRN 11/27/19 01/04/23 History (Anti-Diarrheal (loperamide)) potassium chloride 20 mEq 20 meq PO BID 11/27/19 01/04/23 History tablet,extended release fluticasone furoate 200 1 inh inhalation DAILY 01/04/23 01/04/23 History mcg-vilanterol 25 mcg/dose inhalation powder (Breo Ellipta) levothyroxine 175 mcg tablet 350 mcg PO DAILY 01/04/23 01/04/23 History fxdxec-svjvzeqz-xaisumc 2 cap PO TID 01/04/23 01/04/23 History 24,000-76,000-120,000 unit capsule,delayed rel (Creon) pantoprazole 40 mg tablet,delayed 40 mg PO BID 01/04/23 01/04/23 History release Exam Narrative Exam Narrative: Lying in bed. Conversational. Const General: cooperative and no acute distress Nutritional Appearance: average body habitus Orientation: alert and oriented x3 Eyes General: appearance normal, both eyes and all related structures Conjunctivae: conjunctivae normal Sclera: sclerae normal Resp Effort & Inspection: normal respiratory effort Auscultation: clear to auscultation bilaterally Cardio Rate: regular rate Rhythm: regular rhythm and abnormal rhythm Heart Sounds: S1 normal and S2 normal GI Inspection: distended Palpation: soft, tender (mild in LLQ) and ascites Percussion: fluid wave Auscultation: hypoactive bowel sounds Skin General skin exam: no rashes or lesions noted Extrem General: no pedal edema, no calf tenderness and edema Laterality: bilateral (trace) Psych Appearance: grossly normal Mental Status: mental status grossly normal Mood: congruent mood Affect: normal affect Results Labs 01/06/23 06:05 01/06/23 06:05 Labs: Laboratory Results - last 24 hr 01/04/23 06:15 WBC 9.20 RBC 3.78 L Hgb 11.8 Hct 34.9 L MCV 92 MCH 31.2 MCHC 33.8 RDW 14.0 Plt Count 117 L MPV 10.5 VBG pH 7.39 VBG pCO2 33 L VBG pO2 48 VBG HCO3 20 L VBG Total CO2 18 L VBG O2 Saturation 84 VBG Base Excess -5 L VBG Lactate 1.1 Sodium 137 Potassium 3.6 Chloride 107 Carbon Dioxide 19.6 L Anion Gap 10.4 BUN 13 Creatinine 0.5 L Est GFR (CKD-EPI 2020) 110.01 Glucose 121 H Calcium 8.3 L Magnesium 1.6 L Total Bilirubin 0.6 AST 48 H ALT 147 H Alkaline Phosphatase 239 H Total Protein 6.2 L Albumin 2.4 L Last Vital Signs Temp 36.8 C 01/04/23 10:55 Pulse 85 01/04/23 10:55 Resp 19 01/04/23 10:55 BP 125/75 01/04/23 10:55 Pulse Ox 97 01/04/23 10:55 Time Spent Time spent with Patient: 40-54 minutes Time was spent: preparing to see the patient(eg.review tests), obtaining and/or reviewing separately otained hiistory, ordering medications,tests, procedures, referring, communicating with other health neonatal intensive care nurse, counseling the patient and care coordination
[2023-01-04] MEDS: Heparin 5,000 UNITS/ML VIAL 5000 UNITS SC ×2 (14:31→21:55)
[2023-01-04] MEDS: Creon, Lipase 24,000 CAPCR 2 CAP PO (16:26)
[2023-01-04] MEDS: Potassium Chloride 20 MEQ TABCR PO (16:26)
[2023-01-04] MEDS: Pantoprazole 40 MG VIAL IVP (17:20)
[2023-01-04] MEDS: Acetaminophen 325 MG TAB 650 MG PO (17:20)
[2023-01-04] MEDS: Colestipol 1 GM TAB 2 GM PO (18:21)
[2023-01-04] MEDS: Magnesium Chloride 64 MG TABCR PO (19:38)
[2023-01-04] MEDS: Pantoprazole 40 MG TABCR PO (19:38)
[2023-01-05] MEDS: Normal Saline Flush 10 ML SYR IVP (03:51)
[2023-01-05] MEDS: Normal Saline 500 ML 30 ML IV (03:51)
[2023-01-05] MEDS: Heparin 5,000 UNITS/ML VIAL 5000 UNITS SC ×2 (06:21→14:01)
[2023-01-05] MEDS: Levothyroxine 175 MCG TAB 350 MCG PO (06:29)
[2023-01-05 07:05] LABS: Abs Immature Grans 0.01 10^3/uL (0.0-0.06); Absolute Basophil Count 0.08 10^3/uL (0.0-0.2); Absolute Eosinophil Count 0.28 10^3/uL (0.0-0.7); Absolute Monocyte Count 0.81 10^3/uL (0.1-0.8); Absolute Neutrophil Count 3.91 10^3/uL (1.2-6.7); Basophils % 1.4; Eosinophils % 4.8; HCT 32.2 % (36.0-46.0); HGB 10.7 g/dL (11.2-15.7); Immature Grans % 0.2; Lymphocytes % 12.1; MCH 30.8 pg (27.0-33.0); MCHC 33.2 % (32.0-36.0); MCV 93 fL (80-95); MPV 11.3 fL (8.0-11.0); Neutrophils % 67.5; Platelet Count 129 10^3/uL (130-400); RBC 3.47 10^6/uL (3.93-5.22); RDW 14.2 % (11.7-14.6); RDW-SD 48.5 fL; WBC 5.79 10^3/uL (4.4-10.8)
[2023-01-05 07:29] LABS: ALT 98 U/L (14-59); AST 32 U/L (15-37); Albumin 1.9 g/dL (3.4-5.0); Alkaline Phosphatase 210 U/L (46-116); Anion Gap 8.7 mmol/L (3-11); BUN 10 mg/dL (7-18); Bilirubin, Total 0.5 mg/dL (0.2-1.0); CO2 22.3 mmol/L (21.0-32.0); CREATININE 0.6 mg/dL (0.55-1.02); Calcium 8.2 mg/dL (8.5-10.1); Chloride 110 mmol/L (98-107); Estimated GFR 105.28 (mL/min/1.73m2); Glucose 101 mg/dL (74-106); Magnesium 1.7 mg/dL (1.8-2.4); Potassium 3.4 mmol/L (3.5-5.1); Sodium 141 mmol/L (136-145); Total Protein 5.5 g/dL (6.4-8.2)
[2023-01-05] MEDS: Pantoprazole 40 MG TABCR PO ×2 (07:29→20:06)
[2023-01-05] MEDS: Colestipol 1 GM TAB 2 GM PO ×2 (07:29→17:04)
[2023-01-05] MEDS: Creon, Lipase 24,000 CAPCR 2 CAP PO ×3 (07:29→17:04)
[2023-01-05] MEDS: Magnesium Chloride 64 MG TABCR PO ×2 (07:29→20:06)
[2023-01-05] MEDS: Potassium Chloride 20 MEQ TABCR PO ×2 (07:30→17:05)
[2023-01-05 08:00] VITALS: BP 109/74; PULSE 68; RESP 17; TEMP 36; O2SAT 97
[2023-01-05] MEDS: Multivitamin TAB 1 TAB PO (08:40)
[2023-01-05] MEDS: Cyanocobalamin 500 MCG TAB 1000 MCG PO (08:40)
--- NOTE | 2023-01-05 08:42 | PDOC.CMIN ---
Date of service: 01/05/23 Time of Service: 08:42 Care Management Initial Assmt Initial Assessment REASON FOR HOSPITALIZATION:: Bacteremia PREVIOUS FUNCTIONAL STATUS/SOCIAL/FAMILY SUPPORTS:: Lacie lives in [facility] [place]. with her Christelle Birch and their 16 year old grandson Cas. Lacie does not have children of her own however her has 2 daughters. Lacie is independent at baseline but does require TPN 4 nights a week provided by [facility]. She worked at [employer] in [employer] but retired (due to disability) in May of this year. She does not receive any community services; Christelle administers her TPN. CURRENT FUNCTIONAL STATUS:: Lacie was admitted when she was found to be bacteremic. She was seen in the ED on 01/03/23 and blood cultures drawn at that time grew gram negative rods the next day. She was contacted and asked to return to the hospital. Lacie was sitting up in bed when CM met with her. She informed CM that she feels well, better than she has since the start of her illness. She also shared that she recently left her job, in May, because she was disabled by her illness (short gut syndrome). She has not begun to receive SSDI but expects to this month. Lacie jean not anticipate needing any services unless a prolonged course of IV antibiotics is necessary. ADVANCE DIRECTIVES:: none on file Has patient been provided with info about the portal/API?: Yes Did the patient sign up for the portal?: No CODE STATUS:: Full Code INSURANCE COVERAGE / FINANCIAL ISSUES:: out of state CURRENT HOME/COMMUNITY SERVICES/EQUIPMENT:: TPN 4 days a week PRIMARY CARE PHYSICIAN:: Nick Philippe until he retired. Not sure which member of the practice she will be seeing now. Considering transferring to a primary care practice locally. POTENTIAL DISCHARGE NEEDS:: follow up with PCP and plan of care PATIENT/FAMILY EDUCATION NEEDS:: review of discharge instructions, activity, limitations, follow up plan discuss Ask Me Three' TRANSPORTATION:: via private vehicle with family PLAN:: Anticipate Lacie will be discharged home with no new services, unless a prolonged course of IV antibiotics is needed. She will follow up with her PCP and plan of care and transport with family. CM will follow and continue to assess for discharge needs. PFSH All Active Problems (Updated 01/06/23 @ 13:46 by Laura Dotson DO) Vascular catheter infection (Acute) Discharge planning issues (Acute) On deep vein thrombosis (DVT) prophylaxis (Acute) Hypothyroid (Chronic) Bacteremia (Acute) Fever (Acute) DVT (deep venous thrombosis) (Chronic) Asthma (Chronic) Hypoalbuminemia (Acute) Hypocalcemia (Acute) Hyperglycemia (Acute) LOGAN (acute kidney injury) (Acute) Chronic pancreatitis (Acute) Hyponatremia (Acute) Leukocytosis (Acute) Hypotension (Acute) Pancreatitis (Chronic) Neutropenic fever (Acute) Anemia (Acute) Short gut syndrome (Chronic) Hypomagnesemia (Acute) Pharyngitis (Acute) Medical History Hx of blood clots Pt. states she had a blood clot in her neck 2013 Intestinal volvulus Diabetes Pt. 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/ As per PCP note 01/10/15 Lactic acidosis Surgical History S/P cholecystectomy Incarcerated hernia s/p bowel resection History of hysterectomy FOR OVARIAN TUMOR W/BILAT OOPHORECTOMY W/UTERUS REMOVED BUT CERVIX REMAINS Tibial plateau fracture (10/30/18) s/p ORIF on 11/10/2018 Family History Other Cancer Diabetes Heart disease Social History Smoking/Tobacco Use Status: Never Smoking risk assessment performed?: Yes Alcohol Intake: former Drug use: Occasionally Substance use type: marijuana Housing: house Current gender identity: female Do you feel safe at home: Yes Do you feel safe in your relationship?: Yes
--- NOTE | 2023-01-05 09:08 | W.NUTRFU ---
Date of service: 01/05/23 Time of Service: 09:08
--- NOTE | 2023-01-05 10:00 | W.PM.PROGNOT ---
Date of Service Date of service: 01/05/23 Time of Service: 10:00 Assessment and Plan Assessment and plan (1) Bacteremia: Status: Acute Assessment and plan: unclear source. has mediport which she infuses TPN 4 times weekly. reports her fever and rigors were associated with the TPN infusion which she promptly stopped at the time thinking it was a sensitivity or allergy. consider removal of port: Port removal is to be considered for sepsis, hemodynamic instability, endocardicarditis, suppurative thrombophlebitis, propagating clot, bacteremia> 72 hours with appropriate antibiotic treatment,subcutaneous infection of the catheter tract, and pathogen such as S. aureus, P. aeruginosa, MDRO GN bacilli, jayme spp. Catheter salvation: Consultation with [facility] infectious disease and Antibiotic Lock Therapy (ALT) with TPN infusion, in the meanwhile we will continue the carbapemem until pathogens speciate ID Team recommended for removal of the tunneled central line with 48-72-hour line-vacation once blood cultures are negative. They recommended peripheral infusion of the antibiotic once the line is out.We considering a mid-line as the patient reports concerns regarding peripheral IV access.They did not recommend ALT. Surgery has been consulted for the removal of the central venous access. TPN will also be sent to Lab for culture additionally she had dental work 3 weeks ago, 2 root implants. We will continue Meropenem until blood culture sensitivity results are obtained. (2) Short gut syndrome: Status: Chronic Assessment and plan: Continue home TPN: ID consult from [facility] willed order a culture, awaiting further blood culture results Nutrition consult appreciate. Clear liquids; drinking Ensure clears. Qualifiers: Short bowel syndrome type: unspecified whether colon in continuity Qualified Code(s): K90.829 - Short bowel syndrome, unspecified (3) Hypothyroid: Status: Chronic Assessment and plan: TSH of 8.04 on 04/14/21 Poor absorption d/t short-gut syndrome. We will continue home high dose of levothyroxine 400mcg daily. Qualifiers: Hypothyroidism type: other Qualified Code(s): E03.8 - Other specified hypothyroidism (4) Asthma: Status: Chronic Assessment and plan: We will continue home Advair. and PRN albuterol MDI and levalbuterol neb prn Stable w/o exacerbation, will continue to monitor discussed with DR Suero Qualifiers: Asthma complication type: unspecified Asthma persistence: unspecified Asthma severity: unspecified severity Qualified Code(s): J45.909 - Unspecified asthma, uncomplicated (5) On deep vein thrombosis (DVT) prophylaxis: Status: Acute Assessment and plan: We will continue Heparin SC started on 01/05 (6) Discharge planning issues: Status: Acute Assessment and plan: CM to follow-up with new discharge needs None anticipated at this time Subjective Subjective Patient reports: feels better (but reports night sweats and chills overnight), tolerating liquids well, tolerating a regular diet, voiding w/o difficulty, bowel movement (has ongoing stool evacuation as baseline [employer] w short bowel syndrome), shortness of breath and afebrile; denies diarrhea, blood in stool, nausea, vomiting or fever (but reports night sweats and chills) Exam Narrative Exam Narrative: Constitutional The patient is sitting in bed comfortable and cooperative during the interview. The patient is well groomed without acute distress and has average body habitus. HENMT: Head is normocephalic, and facial structures with normal appearance Eyes: Well aligned, intact ROM Neck: Normal ROM Neuro:alert and oriented to self, person, place time and situation. No neurological focal deficit Chest:Chest is symmetrical and normal appearance, with central venous access to right chest Resp: Normal respiratory pattern, speaks in full sentences, unlabored breathing, clear lung bilaterally Cardio: regular rhythm, S1, S2, positive murmur to left 2nd sternal border,, capillary refill<3 sec., bilateral radial and dorsalis pedis pulses are positive GI: Abdomen is not distended, soft and non tender, bowel sounds are present : No bladder distension Back/spine/Pelvis: No back tenderness, normal alignment Integumentary: No skin lesions or rash Extremities: strength 5/5 to bilateral lower and upper extremities Psych: RASS 0, congruent mood and normal affect. Objective Last Vital Signs Temp 36 C L 01/05/23 08:00 Pulse 68 01/05/23 08:00 Resp 17 01/05/23 08:00 BP 109/74 01/05/23 08:00 Pulse Ox 97 01/05/23 08:00 Laboratory Results - last 24 hr 01/05/23 06:20 WBC 5.79 RBC 3.47 L Hgb 10.7 L Hct 32.2 L MCV 93 MCH 30.8 MCHC 33.2 RDW 14.2 Plt Count 129 L MPV 11.3 H Immature Gran % 0.2 Neutrophils % 67.5 Lymphocytes % 12.1 Monocytes % 14.0 Eosinophils % 4.8 Basophils % 1.4 Nucleated RBC % 0.0 Absolute Neutrophils 3.91 Absolute Lymphocytes 0.70 L Absolute Monocytes 0.81 H Absolute Eosinophils 0.28 Absolute Basophils 0.08 Sodium 141 Potassium 3.4 L Chloride 110 H Carbon Dioxide 22.3 Anion Gap 8.7 BUN 10 Creatinine 0.6 Est GFR (CKD-EPI 2020) 105.28 Glucose 101 Calcium 8.2 L Magnesium 1.7 L Total Bilirubin 0.5 AST 32 ALT 98 H Alkaline Phosphatase 210 H Total Protein 5.5 L Albumin 1.9 L Time Spent with Patient Time Spent with Patient: >50 minutes Time was spent: preparing to see the patient(eg.review tests), ordering medications,tests, procedures, referring, communicating with other health client care representative, indepentently interpreting results, counseling the patient and care coordination
[2023-01-05] MEDS: MAGNESIUM SULFATE 2 GM/50 ML BAG IVPB (10:44)
--- NOTE | 2023-01-05 14:17 | PHA.REVIEW2 ---
Pharmacy Admission Review Admission Clinical Review Admission Pharmacy Review: (Updated 01/05/23 @ 13:19 by Suha Horton APRN) Discharge planning issues (Acute) On deep vein thrombosis (DVT) prophylaxis (Acute) Bacteremia (Acute) Fever (Acute) amoxicillin Allergy (Severe, Verified 01/04/23 05:44) anaphylasis exenatide [From Byetta] Adverse Reaction (Severe, Verified 01/04/23 05:44) Nausea adhesive tape Adverse Reaction (Verified 01/04/23 05:44) Skin Rash codeine Adverse Reaction (Verified 01/04/23 05:44) Nausea morphine Adverse Reaction (Verified 01/04/23 05:44) Nausea Resuscitation Status Full Code Height 5 ft 4 in Weight 68.946 kg Comments Comments/Follow Ups: Patient has TPN @ home, central line may be possible source of infection....cultures pending (BC drawn 01/03: Gram Negative, BC drawn 01/04: no growth, redrawn 01/05: pending. Flu, Covid, RSV all negative, only fever was on admission and @ home. Also recently had dental work, so potential source of infection as well, on Meropenem Pharmacy Admission Review Renal Dosing Renal Dosing: CrCl~99ml/min, no med adjustments BUN 10 mg/dL (7-18) 01/05/23 06:20 Creatinine 0.6 mg/dL (0.55-1.02) 01/05/23 06:20 Anticoagulation Anticoagulation: Hgb 10.7 g/dL (11.2-15.7) L 01/05/23 06:20 Hct 32.2 % (36.0-46.0) L 01/05/23 06:20 Plt Count 129 10^3/uL (130-400) L 01/05/23 06:20 Creatinine 0.6 mg/dL (0.55-1.02) 01/05/23 06:20 DVT Prophylaxis: Reviewed Medications: Heparin Relevant Labs Relevant Labs: Sodium 141 mmol/L (136-145) 01/05/23 06:20 Potassium 3.4 mmol/L (3.5-5.1) L 01/05/23 06:20 Chloride 110 mmol/L (98-107) H 01/05/23 06:20 Magnesium 1.7 mg/dL (1.8-2.4) L 01/05/23 06:20 Electrolytes, C-Reactive P, ESR: Reviewed (C-reactive just above norm @ 0.4, Magnesium replaced IV, WBC not elevated) Home Meds Home Med List reviewed: Reviewed Pharmacy Antibiotic Review Pharmacy Antibiotic Activity: C/S review (Gram neg rods in 1st two bottles, 2nd bottles no growth x24h, 3rd set of cultures drawn 01/05/23, on Meropenem 2gram Q8h) Comments Comments/Follow Ups: Patient has TPN @ home, central line may be possible source of infection....cultures pending (BC drawn 01/03: Gram Negative, BC drawn 01/04: no growth, redrawn 01/05: pending. Flu, Covid, RSV all negative, only fever was on admission and @ home. Also recently had dental work, so potential source of infection as well, on Meropenem
[2023-01-05 15:16] VITALS: BP 111/73; PULSE 59; RESP 19; TEMP 36.4; O2SAT 98
[2023-01-05 17:40] VITALS: BP 108/75; PULSE 68; RESP 18; O2SAT 93
--- NOTE | 2023-01-05 20:46 | W.SURGCON ---
Date of service: 01/06/23 Time of Service: 13:49 Assessment and Plan Assessment and plan (1) Vascular catheter infection: Status: Acute Assessment and plan: Required for chronic long-term TPN Gram-negative bacteremia Catheter will be removed today. Tip was sent for culture Patient on meropenem that was started on 03/07 Repeat blood cultures on Sunday 01/07 after 12 noon. If these are negative consider repeat implantation in 5 days time/per ID rec Access obtained by anesthesia Qualifiers: Encounter type: initial encounter Qualified Code(s): T82.7XXA - Infection and inflammatory reaction due to other cardiac and vascular devices, implants and grafts, initial encounter (2) Hypothyroid: Status: Chronic Qualifiers: Hypothyroidism type: other Qualified Code(s): E03.8 - Other specified hypothyroidism (3) Bacteremia: Status: Acute Assessment and plan: gram negative (4) Fever: Status: Acute (5) DVT (deep venous thrombosis): Status: Chronic (6) Asthma: Status: Chronic Qualifiers: Asthma complication type: unspecified Asthma persistence: unspecified Asthma severity: unspecified severity Qualified Code(s): J45.909 - Unspecified asthma, uncomplicated (7) Hypoalbuminemia: Status: Acute (8) Hypocalcemia: Status: Acute (9) Hyperglycemia: Status: Acute (10) LOGAN (acute kidney injury): Status: Acute (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 She has recently developed symptomatic bacteremia with fevers. We are asked to consult to remove her current central line which is a right subclavian Groshong. She had a left Mediport removed in by Dr. Ford. She had 2 sets of blood cultures that were drawn in the ER. Both of these came back positive with gram-negative's. That was on 01/03. She received vancomycin/Azactam and/Flagyl in the ER on 01/03. She had repeat blood cultures on 01/04 which are negative x24 hours she is currently on meropenem that was started on 03/06 at noon. She does need IV access for ongoing supplemental TPN. I did discuss the case with anesthesia. We will plan on placing a midline for temporary use until we have the bloodstream infection cleared. Then we can place another more long-term catheter for the TPN her short-bowel syndrome which will be lifelong. Risks of removing the port include but not limited to: Bleeding, infection, poor cosmesis or scarring, delayed healing, damage to blood vessel during the removal process, anesthetics, and other on for told complications. Patient is not on any blood thinners. Labs and medications were reviewed. Heparin has been held. His catheter has been in for 1.5 years. She has never had any infections. She was having fever and chills with instillation of TPN through the catheter on Saturday. See blood cultures in [facility]. She currently does not have IV access. Anesthesia was consulted for access. She has not had any IV fluids since Saturday. So patient should have repeat blood cultures in 48 hours (which would be Saturday at noon). If those are clear then we will consider putting in a another permanent type of catheter no sooner than . Review of Systems All systems reviewed & are unremarkable except as noted in HPI and below PFSH All Active Problems (Updated 01/06/23 @ 13:46 by Laura Dotson DO) Vascular catheter infection (Acute) Discharge planning issues (Acute) On deep vein thrombosis (DVT) prophylaxis (Acute) Hypothyroid (Chronic) Bacteremia (Acute) Fever (Acute) DVT (deep venous thrombosis) (Chronic) Asthma (Chronic) Hypoalbuminemia (Acute) Hypocalcemia (Acute) Hyperglycemia (Acute) LOGAN (acute kidney injury) (Acute) Chronic pancreatitis (Acute) Hyponatremia (Acute) Leukocytosis (Acute) Hypotension (Acute) Pancreatitis (Chronic) Neutropenic fever (Acute) Anemia (Acute) Short gut syndrome (Chronic) Hypomagnesemia (Acute) Pharyngitis (Acute) Medical History Hx of blood clots Pt. states she had a blood clot in her neck 2013 Intestinal volvulus Diabetes Pt. 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/ As per PCP note 01/10/15 Lactic acidosis Surgical History S/P cholecystectomy Incarcerated hernia s/p bowel resection History of hysterectomy FOR OVARIAN TUMOR W/BILAT OOPHORECTOMY W/UTERUS REMOVED BUT CERVIX REMAINS Tibial plateau fracture (10/30/18) s/p ORIF on 11/10/2018 Family History Other Cancer Diabetes Heart disease Social History Smoking/Tobacco Use Status: Never Smoking risk assessment performed?: Yes Alcohol Intake: former Drug use: Occasionally Substance use type: marijuana Housing: house Current gender identity: female Do you feel safe at home: Yes Do you feel safe in your relationship?: Yes Exam Narrative Exam Narrative: cath site is clean/dry/intact no hematoma or drainage Results Last Vital Signs Temp 36.4 C L 01/05/23 15:16 Pulse 59 L 01/05/23 15:16 Resp 19 01/05/23 15:16 BP 111/73 01/05/23 15:16 Pulse Ox 98 01/05/23 15:16 Labs 01/06/23 06:05 01/06/23 06:05 Labs: Laboratory Results - last 24 hr 01/05/23 06:20 WBC 5.79 RBC 3.47 L Hgb 10.7 L Hct 32.2 L MCV 93 MCH 30.8 MCHC 33.2 RDW 14.2 Plt Count 129 L MPV 11.3 H Immature Gran % 0.2 Neutrophils % 67.5 Lymphocytes % 12.1 Monocytes % 14.0 Eosinophils % 4.8 Basophils % 1.4 Nucleated RBC % 0.0 Absolute Neutrophils 3.91 Absolute Lymphocytes 0.70 L Absolute Monocytes 0.81 H Absolute Eosinophils 0.28 Absolute Basophils 0.08 Sodium 141 Potassium 3.4 L Chloride 110 H Carbon Dioxide 22.3 Anion Gap 8.7 BUN 10 Creatinine 0.6 Est GFR (CKD-EPI 2020) 105.28 Glucose 101 Calcium 8.2 L Magnesium 1.7 L Total Bilirubin 0.5 AST 32 ALT 98 H Alkaline Phosphatase 210 H Total Protein 5.5 L Albumin 1.9 L
[2023-01-05] MEDS: Loratidine 10 MG TAB PO (21:07)
[2023-01-05 23:20] VITALS: BP 110/71; PULSE 58; RESP 17; TEMP 36.6; O2SAT 97
[2023-01-06] MEDS: Levothyroxine 175 MCG TAB 350 MCG PO (05:47)
[2023-01-06 06:17] LABS: Abs Immature Grans 0.01 10^3/uL (0.0-0.06); Absolute Basophil Count 0.09 10^3/uL (0.0-0.2); Absolute Eosinophil Count 0.32 10^3/uL (0.0-0.7); Absolute Lymphocyte Count 1.32 10^3/uL (1.2-3.4); Absolute Monocyte Count 0.62 10^3/uL (0.1-0.8); Absolute Neutrophil Count 2.25 10^3/uL (1.2-6.7); Eosinophils % 6.9; HCT 33.8 % (36.0-46.0); HGB 11.1 g/dL (11.2-15.7); Immature Grans % 0.2; Lymphocytes % 28.6; MCH 30.6 pg (27.0-33.0); MCHC 32.8 % (32.0-36.0); MCV 93 fL (80-95); Monocytes % 13.4; Neutrophils % 48.9; Platelet Count 153 10^3/uL (130-400); RBC 3.63 10^6/uL (3.93-5.22); RDW-SD 48.2 fL; WBC 4.61 10^3/uL (4.4-10.8)
[2023-01-06 06:34] LABS: BUN 7 mg/dL (7-18); CREATININE 0.7 mg/dL (0.55-1.02); Calcium 8.6 mg/dL (8.5-10.1); Chloride 109 mmol/L (98-107); Estimated GFR 101.44 (mL/min/1.73m2); Glucose 103 mg/dL (74-106); Magnesium 1.8 mg/dL (1.8-2.4); Potassium 3.5 mmol/L (3.5-5.1); Sodium 139 mmol/L (136-145)
[2023-01-06 07:23] VITALS: BP 113/71; PULSE 60; RESP 17; TEMP 36.7; O2SAT 98
[2023-01-06] MEDS: Acetaminophen 325 MG TAB 650 MG PO (08:42)
[2023-01-06] MEDS: Calcium Carbonate *TUMS* 500 MG CHEW PO (09:29)
[2023-01-06] MEDS: Normal Saline Flush 10 ML SYR IVP ×2 (11:18→14:06)
[2023-01-06] MEDS: LORazepam 1 MG TAB PO (11:31)
--- NOTE | 2023-01-06 11:32 | PGE_ITS ---
Date of Service Date of service: 01/06/23 Time of Service: 11:32 Assessment and Plan Assessment and plan (1) Bacteremia: Status: Acute Assessment and plan: unclear source. Catheter removed by surgery today, no drainage or hematoma noted BC neg Will check BC 48 h after cath pulled - order entered (2) Short gut syndrome: Status: Chronic Assessment and plan: Cont home TPN - when a line is able to be placed - discussion with Dr Dotson - she will order TPN Nutrition consult Qualifiers: Short bowel syndrome type: unspecified whether colon in continuity Qualified Code(s): K90.829 - Short bowel syndrome, unspecified (3) Hypothyroid: Status: Chronic Assessment and plan: TSH of 8.04 on 04/14/21 Poor absorption d/t short-gut syndrome. Already high dose of levothyroxine 400mcg daily. PCP f/U outpt Qualifiers: Hypothyroidism type: other Qualified Code(s): E03.8 - Other specified hypothyroidism (4) Asthma: Status: Chronic Assessment and plan: Home Advair. PRN albuterol MDI and levalbuterol neb prn Stable w/o exacerbation. discussed with Dr Suero Qualifiers: Asthma severity: unspecified severity Asthma persistence: unspecified Asthma complication type: unspecified Qualified Code(s): J45.909 - Unspecified asthma, uncomplicated Subjective Subjective Patient reports: no new complaints, tolerating liquids well, tolerating a regular diet, voiding w/o difficulty, bowel movement and afebrile; denies blood in stool, nausea or shortness of breath Interval history since last seen: Patient states she is on TPN 4/7 days. She is curious what her gold level is - she states when she is not getting TPN it is low. She reports that she is eathing today and doing well. She is awake, alert and conversant - pleasant. Exam Narrative Exam Narrative: Lying in bed. Conversational. Const General: cooperative and no acute distress Nutritional Appearance: average body habitus Orientation: alert and oriented x3 Eyes General: appearance normal, both eyes and all related structures Conjunctivae: conjunctivae normal Sclera: sclerae normal Resp Effort & Inspection: normal respiratory effort Auscultation: clear to auscultation bilaterally Cardio Rate: regular rate Rhythm: regular rhythm and abnormal rhythm Heart Sounds: S1 normal and S2 normal GI Inspection: distended Palpation: soft, tender (mild in LLQ) and ascites Percussion: fluid wave Auscultation: hypoactive bowel sounds Skin General skin exam: no rashes or lesions noted Extrem General: no pedal edema, no calf tenderness and edema Laterality: bilateral (trace) Psych Appearance: grossly normal Mental Status: mental status grossly normal Mood: congruent mood Affect: normal affect Objective Last Vital Signs Temp 36.7 C 01/06/23 07:23 Pulse 60 01/06/23 07:23 Resp 17 01/06/23 07:23 BP 113/71 01/06/23 07:23 Pulse Ox 98 01/06/23 07:23 Laboratory Results - last 24 hr 01/06/23 06:05 WBC 4.61 RBC 3.63 L Hgb 11.1 L Hct 33.8 L MCV 93 MCH 30.6 MCHC 32.8 RDW 14.0 Plt Count 153 MPV 11.0 Immature Gran % 0.2 Neutrophils % 48.9 Lymphocytes % 28.6 Monocytes % 13.4 Eosinophils % 6.9 Basophils % 2.0 Nucleated RBC % 0.0 Absolute Neutrophils 2.25 Absolute Lymphocytes 1.32 Absolute Monocytes 0.62 Absolute Eosinophils 0.32 Absolute Basophils 0.09 Sodium 139 Potassium 3.5 Chloride 109 H Carbon Dioxide 22.0 Anion Gap 8.0 BUN 7 Creatinine 0.7 Est GFR (CKD-EPI 2020) 101.44 Glucose 103 Calcium 8.6 Magnesium 1.8 Time Spent with Patient Time Spent with Patient: 25-34 minutes Time was spent: preparing to see the patient(eg.review tests), ordering medications,tests, procedures, referring, communicating with other health healthcare account manager, indepentently interpreting results, counseling the patient and care coordination
--- NOTE | 2023-01-06 12:10 | W.ANESVAS ---
Peripheral IV Placement Date Performed: 01/06/23 Procedure Time: 12:00 Requesting Provider: Laura Dotson Procedure Location: Med/Surg Sedation Given (Indicate Dose Given): No Sedation given Patient Mental Status: Awake Laterality: Right Insertion Site: Forearm Size & Type: 20 ga. Dressing: IV Dressing Placed, Tegaderm Applied, Statlock Applied and Mastisol Used Ultrasound: Sterile probe cover and gel used Ultrasound Image Saved?: No Number of Attempts (See previous attempts in note section): 3 Procedure Tolerated: No Complications and Patient tolerated well Procedure Outcome: Successful Procedure Comment: Right forearm vein identified using ultrasound; compressible structure with no pulsating features. 20g arrow placed without difficulty, patient tolerated well with Dr. Dotson in room. Double check patency, free flow IV hooked up, runs under gravity. IV dressed and report given to RN. Performed By: Ember Melendez
[2023-01-06] MEDS: POTASSIUM CHLORIDE/D5-0.45NACL 1,000 ML 100 MEQ IV (12:25)
[2023-01-06] MEDS: Creon, Lipase 24,000 CAPCR 2 CAP PO ×2 (12:34→16:40)
--- NOTE | 2023-01-06 13:02 | NUR.NOTE ---
Nursing Note: At approximately 1030 on 01/06/23, this RN entered pt.'s room to help assist Laura Dotson DO with the bedside removal of a tunneled Groshung port catheter. Dr. Dotson obtained written and verbal consent from the pt. to perform the surgical procedure. At approximately 1040 on 01/06/23, a timeout prior to the surgical procedure was initiated by this RN. Pt. verbalized her name and date of and then this RN verbalized in front of the pt. and Dr. Dotson that the pt. would be having her port catheter removed by Dr. Dotson. Pt. verbalized that this was correct. At approximately 1045 on 01/06/23, Dr. Dotson began the procedure by injecting lidocaine and sodium bicarbonate around the area of the pt.'s port catheter for local anesthetic. At approximately 1050 on 01/06/23, Dr. Dotson began to remove the port catheter. At approximately 1110 on 01/06/23, Dr. Dotson removed the port catheter, and with assistance from this RN, removed the catheter tip and placed it in a sterile specimen cup, which Dr. Dotson stated she would bring to the laboratory herself. At approximately 1115 on 01/06/23, Dr. Dotson finished the procedure following placement of a surgical dressing (4x4 gauze and medipore tape). Surgical dressing not dated, timed, or initialed by Dr. Dotson. Surgical dressing appeared clean, dry, intact, with no drainage noted to be shadowing through in the immediate time period following the procedure. Pt. was awake and alert throughout the procedure and denied pain throughout the procedure.
--- NOTE | 2023-01-06 13:33 | W.PM.OP ---
Date of service: 01/06/23 Time of Service: 13:33 Operative Note Operative Note DATE OF PROCEDURE: 01/06/23 PRE-OP DIAGNOSIS: Gram-positive bacteremia POST-OP DIAGNOSIS: same PROCEDURE: Removal of right subclavian Groshong SURGEON: Laura Dotson ANESTHESIA TYPE: Local By Surgeon Refer to Anesthesia Record ESTIMATED BLOOD LOSS: 1 PATHOLOGY: other COMPLICATIONS: None Patient was transported to: floor Patient's condition: stable Procedure Description: Patient has a gram-negative bacteremia. She has a Groshong catheter that has been in for 1.5 years for TPN for short-bowel syndrome. She developed fever and chills. The catheter will be removed today and the tip sent for culture. Informed consent is obtained explaining risks and benefits of procedure including but not limited to: Bleeding, infection, scarring, damage to blood vessel necessitating surgery, poor cosmesis, hematomas, reaction to anesthetics, and other on for told complications. Patient is placed in the supine position. The old catheter site is prepped and draped in the usual sterile fashion using a ChloraPrep scrub solution. Timeout was performed. 30 cc of 1% lidocaine with epi and bicarb is used to anesthetize the area. The catheter has 2 cuffs. 5 mm incision is created over each cuff. The cuffs are dissected out. The catheter is removed with gentle dissection/traction. Pressure is held for 2 minutes. There is no bleeding noted. A stitch of 4-0 nylon is placed in each incision. The tip is sent for culture. Compression dressing is applied. Patient tolerated the procedure well without complication. A midline catheter is placed for IV access by anesthesia.
[2023-01-06] MEDS: Ketorolac 15 MG/ML VIAL IVP (14:05)
[2023-01-06] MEDS: Normal Saline 500 ML 100 ML IV (14:07)
[2023-01-06 15:49] VITALS: BP 112/74; PULSE 55; RESP 17; TEMP 36.8; O2SAT 96
[2023-01-06] MEDS: Potassium Chloride 20 MEQ TABCR PO (16:40)
[2023-01-06] MEDS: Colestipol 1 GM TAB 2 GM PO (16:40)
[2023-01-06] MEDS: Magnesium Chloride 64 MG TABCR PO (21:08)
[2023-01-06] MEDS: Protein Nutritional Supplement 16 GM 1 OUNCE PACKET PO (21:08)
[2023-01-06 21:09] VITALS: BP 111/74; PULSE 74; RESP 20; TEMP 36.7; O2SAT 95
[2023-01-06] MEDS: Zolpidem 5 MG TAB PO (21:09)
[2023-01-06] MEDS: Pantoprazole 40 MG TABCR PO (21:09)
[2023-01-06] MEDS: Loratidine 10 MG TAB PO (21:09)
[2023-01-07] MEDS: Levothyroxine 175 MCG TAB 350 MCG PO (06:12)
[2023-01-07 06:15] VITALS: BP 113/77; PULSE 58; RESP 20; TEMP 36.1; O2SAT 95
[2023-01-07 07:03] LABS: Abs Immature Grans 0.01 10^3/uL (0.0-0.06); Absolute Basophil Count 0.08 10^3/uL (0.0-0.2); Absolute Eosinophil Count 0.33 10^3/uL (0.0-0.7); Absolute Lymphocyte Count 1.58 10^3/uL (1.2-3.4); Absolute Monocyte Count 0.41 10^3/uL (0.1-0.8); Basophils % 1.9; Eosinophils % 7.7; HCT 36.3 % (36.0-46.0); HGB 11.8 g/dL (11.2-15.7); Immature Grans % 0.2; Lymphocytes % 36.7; MCH 30.4 pg (27.0-33.0); MCHC 32.5 % (32.0-36.0); MCV 94 fL (80-95); MPV 10.7 fL (8.0-11.0); Monocytes % 9.5; Platelet Count 176 10^3/uL (130-400); RBC 3.88 10^6/uL (3.93-5.22); RDW-SD 48.3 fL; WBC 4.31 10^3/uL (4.4-10.8)
[2023-01-07 07:25] LABS: Anion Gap 9.2 mmol/L (3-11); BUN 6 mg/dL (7-18); CO2 22.8 mmol/L (21.0-32.0); CREATININE 0.7 mg/dL (0.55-1.02); Calcium 8.8 mg/dL (8.5-10.1); Chloride 108 mmol/L (98-107); Estimated GFR 101.44 (mL/min/1.73m2); Glucose 95 mg/dL (74-106); Magnesium 1.8 mg/dL (1.8-2.4); Potassium 4.1 mmol/L (3.5-5.1); Sodium 140 mmol/L (136-145)
[2023-01-07] MEDS: Creon, Lipase 24,000 CAPCR 2 CAP PO ×3 (07:33→16:36)
[2023-01-07] MEDS: Colestipol 1 GM TAB 2 GM PO ×2 (07:33→16:36)
[2023-01-07] MEDS: Pantoprazole 40 MG TABCR PO ×2 (07:33→21:10)
[2023-01-07] MEDS: Potassium Chloride 20 MEQ TABCR PO ×2 (07:33→16:36)
[2023-01-07] MEDS: Cyanocobalamin 500 MCG TAB 1000 MCG PO (09:05)
[2023-01-07] MEDS: Protein Nutritional Supplement 16 GM 1 OUNCE PACKET PO ×2 (09:05→21:10)
[2023-01-07] MEDS: Multivitamin TAB 1 TAB PO (09:05)
[2023-01-07] MEDS: Magnesium Chloride 64 MG TABCR PO ×2 (09:05→21:10)
[2023-01-07] MEDS: Ergocalciferol 50000 UNITS CAP PO (10:16)
--- NOTE | 2023-01-07 10:51 | PDOC.CMPRO ---
Date of service: 01/07/23 Time of Service: 10:51 Care Management Progress Note Progress Note Text Progress Note Text: S/O:Lacie was sitting up in bed visiting with her Christelle when CM met with her. She was in good spirits and stated that she feels fine. She informed CM that the only time she felt sick was when she spiked a fever to 103 after receiving her TPN at home. She had repeat blood cultures drawn yesterday which are negative and will have 2 more sets drawn tomorrow. If all of the blood cultures remain negative, she will likely have another port inserted on and discharge home on oral antibiotics. A:Lacie is a 57 year old woman admitted on 01/04/23 with gram negative sepsis P;Anticipate Lacie will be discharged home with no new services. She will follow up with her PCP and plan of care and transport with family. CM will follow and continue to assess for discharge needs.
[2023-01-07 15:05] VITALS: BP 127/79; PULSE 57; RESP 18; TEMP 37; O2SAT 94
[2023-01-07] MEDS: Heparin 5,000 UNITS/ML VIAL 5000 UNITS SC ×2 (15:23→21:11)
--- NOTE | 2023-01-07 16:45 | W.NUTCONSULT ---
Date of service: 01/07/23 Time of Service: 16:45 Nutritional Consult ASSESSMENT: 57yo female admitted for sepsis, which resulted in her central line removal due to suspect of the source of infection. Hx of short gut syndrome. I originally met with Lacie Saturday to ask about her TPN routine at home. She and her let me know she did home infusions 4 days per week. They could not remember the percent AA/dextrose and had anticipated at the time that they would continue on the home TPN. I discussed with pharmacy this morning that Lacie would now be getting PPN due to removal of central line port. A standard PPN was going to be initiated and then I received word that pt refused PPN at this time. She continues to have excellent PO intake at meals and was educated on high kcal/higher protein choices at meals. PT weight stable and reports no concerns with N/V/C/D INTERVENTION: No agresssive nutrition intervention planned at this time MONITORING AND EVALUATION: will monitor for changes before discharge orders - if TPN resumes, will provide recommendations. Time Spent in Nutritional Counseling and Treatment: 15
--- NOTE | 2023-01-07 18:15 | W.PM.PROGNOT ---
Date of Service Date of service: 01/07/23 Time of Service: 11:00 Assessment and Plan Assessment and plan (1) Bacteremia: Status: Acute Assessment and plan: unclear source. No drainage or hematoma noted to where catheter was removed on right chest yesterday BC neg Will check BC 48 h after cath pulled - order entered (2) Short gut syndrome: Status: Chronic Assessment and plan: Cont home TPN - when a line is able to be placed - discussion with Dr Dotson - she will order TPN - patient refuses TPN until a new central line is placed, she has had a bad experience with a peripheral line had peripheral TPN infiltrated. Dr Dotson notified by nursing Nutrition consult Qualifiers: Short bowel syndrome type: unspecified whether colon in continuity Qualified Code(s): K90.829 - Short bowel syndrome, unspecified (3) Hypothyroid: Status: Chronic Assessment and plan: TSH of 8.04 on 04/14/21 Poor absorption d/t short-gut syndrome. Already high dose of levothyroxine 400mcg daily. PCP f/U outpt Qualifiers: Hypothyroidism type: other Qualified Code(s): E03.8 - Other specified hypothyroidism (4) Asthma: Status: Chronic Assessment and plan: Home Advair. PRN albuterol MDI and levalbuterol neb prn Stable w/o exacerbation. discussed with Dr Suero Qualifiers: Asthma severity: unspecified severity Asthma persistence: unspecified Asthma complication type: unspecified Qualified Code(s): J45.909 - Unspecified asthma, uncomplicated Subjective Subjective Patient reports: no new complaints, tolerating liquids well, tolerating a regular diet, voiding w/o difficulty, diarrhea and afebrile; denies flatus, nausea, vomiting or shortness of breath Interval history since last seen: Up and walking in the [place], states she is feeling better and stronger. Does not want TPN until she has a central line, she states she had a bad experience getting peripheral TPN and infiltration in the past. Pateint request we check her copper level - explained we will, and it is a send out. Exam Narrative Exam Narrative: Lying in bed. Conversational. Const General: cooperative and no acute distress Nutritional Appearance: average body habitus Orientation: alert and oriented x3 Eyes General: appearance normal, both eyes and all related structures Conjunctivae: conjunctivae normal Sclera: sclerae normal Resp Effort & Inspection: normal respiratory effort Auscultation: clear to auscultation bilaterally Cardio Rate: regular rate Rhythm: regular rhythm and abnormal rhythm Heart Sounds: S1 normal and S2 normal GI Inspection: distended Palpation: soft, tender (mild in LLQ) and ascites Percussion: fluid wave Auscultation: hypoactive bowel sounds Skin General skin exam: no rashes or lesions noted Extrem General: no pedal edema, no calf tenderness and edema Laterality: bilateral (trace) Psych Appearance: grossly normal Mental Status: mental status grossly normal Mood: congruent mood Affect: normal affect Objective Last Vital Signs Temp 37.0 C 01/07/23 15:05 Pulse 57 L 01/07/23 15:05 Resp 18 01/07/23 15:05 BP 127/79 01/07/23 15:05 Pulse Ox 94 01/07/23 15:05 Laboratory Results - last 24 hr 01/07/23 06:50 WBC 4.31 L RBC 3.88 L Hgb 11.8 Hct 36.3 MCV 94 MCH 30.4 MCHC 32.5 RDW 14.0 Plt Count 176 MPV 10.7 Immature Gran % 0.2 Neutrophils % 44.0 Lymphocytes % 36.7 Monocytes % 9.5 Eosinophils % 7.7 Basophils % 1.9 Nucleated RBC % 0.0 Absolute Neutrophils 1.90 Absolute Lymphocytes 1.58 Absolute Monocytes 0.41 Absolute Eosinophils 0.33 Absolute Basophils 0.08 Sodium 140 Potassium 4.1 Chloride 108 H Carbon Dioxide 22.8 Anion Gap 9.2 BUN 6 L Creatinine 0.7 Est GFR (CKD-EPI 2020) 101.44 Glucose 95 Calcium 8.8 Magnesium 1.8 Time Spent with Patient Time Spent with Patient: 35-49 minutes Time was spent: preparing to see the patient(eg.review tests), ordering medications,tests, procedures, referring, communicating with other health spiritual care coordinator, indepentently interpreting results, counseling the patient and care coordination
[2023-01-07] MEDS: Zolpidem 5 MG TAB PO (21:10)
[2023-01-07] MEDS: Loratidine 10 MG TAB PO (21:10)
--- NOTE | 2023-01-08 | DI.US_ITS ---
Exam(s) US UPPER EXTREMITY VENOUS RT EXAM: US UPPER EXTREMITY VENOUS RT CLINICAL HISTORY: rule out thrombophlebitis TECHNIQUE: GRAYSCALE, COLOR, DOPPLER IMAGING OF THE VENOUS SYSTEM OF THE UPPER EXTREMITY-RIGHT COMPARISON: US POCUS EXAM from 01/07/2023 FINDINGS: Forearm level: There is occlusive thrombus within the superficial cephalic vein in the lateral aspect of the distal arm. The length of the intraluminal thrombus is 9 cm. No other thrombi seen within t he forearm veins nor above the antecubital fossa. Above the elbow level: Basilic vein: Patent. Normal color-flow and normal compression and augmentation properties. Brachial vein(s):Patent. Normal color flow. Normal compression and augmentation properties. Cephalic vein:Patent. Normal color flow. Normal compression and augmentation properties. Axillary vein: Patent. Normal color flow. Normal compression and augmentation properties. Visualized subclavian vein: At central aspect of the right subclavian vein there is nonocclusive echo genic strand noted. Is difficult to determine is this is related to presence of prior thrombus or ca lcified valve. IMPRESSION: 1. This study is positive for the presence of 9 mm long intraluminal thrombus within the cephalic ve in below the level of the elbow. 2. In the medial aspect of the subclavian vein (near junction with SVC) there is a partially visuali zed nonocclusive echogenic string like material within the vein lumen. This may be related to prior thrombus at this level or venous valve at this level. Correlation with the presence of any prior christiano tral line at this level is recommended. DATA REPOSITORY:
[2023-01-08] MEDS: Levothyroxine 175 MCG TAB 350 MCG PO (06:09)
[2023-01-08 07:40] VITALS: BP 100/62; PULSE 65; RESP 22; TEMP 36.4; O2SAT 95
[2023-01-08 07:45] LABS: Abs Immature Grans 0.02 10^3/uL (0.0-0.06); Absolute Monocyte Count 0.42 10^3/uL (0.1-0.8); HCT 35.5 % (36.0-46.0); HGB 11.9 g/dL (11.2-15.7); MCH 31.4 pg (27.0-33.0); MCHC 33.5 % (32.0-36.0); MCV 94 fL (80-95); MPV 10.6 fL (8.0-11.0); Platelet Count 211 10^3/uL (130-400); RBC 3.79 10^6/uL (3.93-5.22); RDW 13.9 % (11.7-14.6); RDW-SD 47.5 fL; WBC 4.71 10^3/uL (4.4-10.8)
[2023-01-08] MEDS: Pantoprazole 40 MG TABCR PO ×2 (07:54→20:16)
[2023-01-08] MEDS: Multivitamin TAB 1 TAB PO (07:54)
[2023-01-08] MEDS: Colestipol 1 GM TAB 2 GM PO ×2 (07:54→16:22)
[2023-01-08] MEDS: Magnesium Chloride 64 MG TABCR PO ×2 (07:54→20:16)
[2023-01-08] MEDS: Cyanocobalamin 500 MCG TAB 1000 MCG PO (07:54)
[2023-01-08] MEDS: Potassium Chloride 20 MEQ TABCR PO ×2 (07:54→16:22)
[2023-01-08] MEDS: Creon, Lipase 24,000 CAPCR 2 CAP PO ×3 (07:54→16:21)
[2023-01-08] MEDS: Protein Nutritional Supplement 16 GM 1 OUNCE PACKET PO ×2 (07:54→20:15)
[2023-01-08 08:00] LABS: Anion Gap 7.9 mmol/L (3-11); BUN 10 mg/dL (7-18); C-Reactive Protein 1.72 mg/dL (0.0-0.3); CO2 24.1 mmol/L (21.0-32.0); CREATININE 0.7 mg/dL (0.55-1.02); Calcium 8.7 mg/dL (8.5-10.1); Chloride 106 mmol/L (98-107); Estimated GFR 101.44 (mL/min/1.73m2); Glucose 91 mg/dL (74-106); Magnesium 1.7 mg/dL (1.8-2.4); Potassium 3.8 mmol/L (3.5-5.1); Sodium 138 mmol/L (136-145)
[2023-01-08 08:15] LABS: Absolute Basophil Count 0.05 10^3/uL (0.0-0.2); Absolute Eosinophil Count 0.24 10^3/uL (0.0-0.7); Absolute Lymphocyte Count 1.51 10^3/uL (1.2-3.4); Atypical Lymphocytes % 2; Diff Comment Manual Differential; RBC Morphology Normal
--- NOTE | 2023-01-08 09:19 | W.PM.PROGNOT ---
Date of Service Date of service: 01/08/23 Time of Service: 09:19 Assessment and Plan Assessment and plan (1) Bacteremia: Status: Acute Assessment and plan: Initially unclear source, then suspected right chest central venous access cath. as a source; removed by surgical team after consultation with Dr. Dotson initiated Will f/u with surgery for reinsertion once blood cultures are negative for 48 hours from today ( on 01/10). No drainage or hematoma noted to where catheter was removed on right chest yesterday, RN to removed dressing > [address] BC resulted in enterobacter spp. Redrawn today Remains on Carbapenems due to severe anaphylactic reaction to penicillins Will check BC 48 h after cath pulled - order entered and completed today, if negative on 01/10; considering new central line by surgery Adding oral probiotics (2) Hypothyroid: Status: Chronic Assessment and plan: Will continue same management TSH of 8.04 on 04/14/21 Poor absorption d/t short-gut syndrome. Already high dose of levothyroxine 400mcg daily. PCP f/U outpt Qualifiers: Hypothyroidism type: other Qualified Code(s): E03.8 - Other specified hypothyroidism (3) Asthma: Status: Chronic Assessment and plan: Will continue same management Home Advair. PRN albuterol MDI and levalbuterol neb prn Stable w/o exacerbation. discussed with Dr Suero Qualifiers: Asthma complication type: unspecified Asthma persistence: unspecified Asthma severity: unspecified severity Qualified Code(s): J45.909 - Unspecified asthma, uncomplicated (4) Hypomagnesemia: Status: Acute Assessment and plan: Mag 1.7, repleted Mag in AM (5) Short gut syndrome: Status: Chronic Assessment and plan: Cont home TPN - when a line is able to be placed - discussion with Dr Dotson - she will order TPN but patient refused TPN until a new central line is placed, she has had a bad experience with a peripheral line had peripheral TPN infiltrated. Dr Dotson was aware Qualifiers: Short bowel syndrome type: unspecified whether colon in continuity Qualified Code(s): K90.829 - Short bowel syndrome, unspecified (6) On deep vein thrombosis (DVT) prophylaxis: Status: Acute Assessment and plan: We will continue Heparin SC , resumed post-surgery (7) Discharge planning issues: Status: Acute Assessment and plan: CM to follow-up with new discharge needs None anticipated at this time Subjective Subjective Patient reports: no new complaints, feels better, pain is less (to right lower forearm hematoma minimal discomfort with tactile stimuli), tolerating liquids well, tolerating a regular diet, voiding w/o difficulty, flatus, bowel movement (ongoing due to short gut syndrome ) and afebrile; denies nausea, vomiting, shortness of breath or fever Exam Narrative Exam Narrative: Constitutional The patient is semi-abrams in bed comfortable minimal discomfort to right lower forearm to touch and cooperative during the interview, spouse at bedside The patient is well groomed without acute distress and has average body habitus. HENMT: Head is normocephalic, no adenopathy,, and facial structures with normal appearance Eyes: Well aligned, intact ROM Neck: Normal ROM Neuro:alert and oriented to self, person, place time and situation. No neurological focal deficit Chest:Chest is symmetrical and DCI dressing previous Groshong cath. site to right chest Resp: Normal respiratory pattern, speaks in full sentences, unlabored breathing, clear lung bilaterally Cardio: regular rhythm, S1, S2,capillary refill<3 sec., bilateral radial and dorsalis pedis pulses are positive GI: Abdomen is not distended, soft and non tender, bowel sounds are present : No bladder distension, no CVA tenderness Back/spine/Pelvis: No back tenderness, normal alignment Integumentary: No skin lesions or rash Extremities: strength 5/5 to bilateral lower and upper extremities Psych: RASS 0, congruent mood and normal affect. Objective Last Vital Signs Temp 36.4 C L 01/08/23 07:40 Pulse 65 01/08/23 07:40 Resp 22 01/08/23 07:40 BP 100/62 01/08/23 07:40 Pulse Ox 95 01/08/23 07:40 Laboratory Results - last 24 hr 01/08/23 07:25 WBC 4.71 RBC 3.79 L Hgb 11.9 Hct 35.5 L MCV 94 MCH 31.4 MCHC 33.5 RDW 13.9 Plt Count 211 MPV 10.6 Immature Gran % 0.0 Neutrophils % 53.0 Lymphocytes % 30.0 Atypical Lymphs % 2 Monocytes % 9.0 Eosinophils % 5.0 Basophils % 1.0 Nucleated RBC % 0.0 Absolute Neutrophils 2.50 Absolute Lymphocytes 1.51 Absolute Monocytes 0.42 Absolute Eosinophils 0.24 Absolute Basophils 0.05 RBC Morphology Normal Sodium 138 Potassium 3.8 Chloride 106 Carbon Dioxide 24.1 Anion Gap 7.9 BUN 10 Creatinine 0.7 Est GFR (CKD-EPI 2020) 101.44 Glucose 91 Calcium 8.7 Magnesium 1.7 L C-Reactive Protein 1.72 H Time Spent with Patient Time Spent with Patient: >50 minutes Time was spent: preparing to see the patient(eg.review tests), ordering medications,tests, procedures, referring, communicating with other health personal care service provider, indepentently interpreting results, counseling the patient and care coordination
[2023-01-08] MEDS: MAGNESIUM SULFATE 2 GM/50 ML BAG IVPB (10:13)
--- NOTE | 2023-01-08 10:57 | PDOC.CMPRO ---
Date of service: 01/08/23 Time of Service: 10:57 Care Management Progress Note Progress Note Text Progress Note Text: S/O: Lacie was lying in bed when CM met with her. She stated that things are going well today, besides her feeling a little stir crazy. Per report, surgery has removed her central line, and will reinsert it once her blood cultures are negative for 48 hours. Once she is medically ready, she will return home with no new services. CM will continue to follow. A:Lacie is a 57 year old woman admitted on 01/04/23 with gram negative sepsis P: Anticipate Lacie will be discharged home with no new services. She will follow up with her PCP and plan of care and transport with family. CM will follow and continue to assess for discharge needs.
[2023-01-08] MEDS: Heparin 5,000 UNITS/ML VIAL 5000 UNITS SC ×2 (14:02→21:15)
[2023-01-08 14:31] VITALS: BP 107/76; PULSE 66; RESP 19; TEMP 37; O2SAT 94
--- NOTE | 2023-01-08 16:41 | CHAPLAIN ---
I had a brief visit with Lacie. She was resting in bed. In introduced myself and offered support. She wasn't interested in further conversation.
[2023-01-08] MEDS: Loratidine 10 MG TAB PO (20:16)
[2023-01-08] MEDS: Zolpidem 5 MG TAB PO (20:16)
[2023-01-08] MEDS: Normal Saline Flush 10 ML SYR IVP (20:17)
[2023-01-08 23:10] VITALS: BP 90/64; PULSE 69; RESP 18; TEMP 36; O2SAT 96
[2023-01-09] MEDS: Heparin 5,000 UNITS/ML VIAL 5000 UNITS SC ×3 (06:07→21:08)
[2023-01-09] MEDS: Levothyroxine 175 MCG TAB 350 MCG PO (06:10)
[2023-01-09 07:26] LABS: Abs Immature Grans 0.03 10^3/uL (0.0-0.06); Absolute Basophil Count 0.14 10^3/uL (0.0-0.2); Absolute Eosinophil Count 0.47 10^3/uL (0.0-0.7); Absolute Lymphocyte Count 1.97 10^3/uL (1.2-3.4); Absolute Monocyte Count 0.48 10^3/uL (0.1-0.8); Absolute Neutrophil Count 1.76 10^3/uL (1.2-6.7); Basophils % 2.9; Eosinophils % 9.7; HGB 12.3 g/dL (11.2-15.7); Immature Grans % 0.6; Lymphocytes % 40.6; MCH 30.4 pg (27.0-33.0); MCHC 32.4 % (32.0-36.0); MCV 94 fL (80-95); MPV 10.2 fL (8.0-11.0); Monocytes % 9.9; Neutrophils % 36.3; Platelet Count 248 10^3/uL (130-400); RBC 4.05 10^6/uL (3.93-5.22); RDW 13.7 % (11.7-14.6); RDW-SD 47.1 fL; WBC 4.85 10^3/uL (4.4-10.8)
[2023-01-09] MEDS: Creon, Lipase 24,000 CAPCR 2 CAP PO ×3 (07:31→16:43)
[2023-01-09] MEDS: Colestipol 1 GM TAB 2 GM PO ×2 (07:32→16:44)
[2023-01-09] MEDS: Magnesium Chloride 64 MG TABCR PO ×2 (07:32→21:07)
[2023-01-09] MEDS: Potassium Chloride 20 MEQ TABCR PO ×2 (07:33→16:44)
[2023-01-09] MEDS: Multivitamin TAB 1 TAB PO (07:33)
[2023-01-09] MEDS: Cyanocobalamin 500 MCG TAB 1000 MCG PO (07:33)
[2023-01-09] MEDS: Protein Nutritional Supplement 16 GM 1 OUNCE PACKET PO ×2 (07:34→21:14)
[2023-01-09] MEDS: Pantoprazole 40 MG TABCR PO ×2 (07:34→21:07)
[2023-01-09 07:38] LABS: Anion Gap 6.1 mmol/L (3-11); BUN 12 mg/dL (7-18); CO2 25.9 mmol/L (21.0-32.0); CREATININE 0.6 mg/dL (0.55-1.02); Calcium 8.9 mg/dL (8.5-10.1); Chloride 105 mmol/L (98-107); Estimated GFR 105.28 (mL/min/1.73m2); Glucose 88 mg/dL (74-106); Sodium 137 mmol/L (136-145)
[2023-01-09 07:40] LABS: Magnesium 2.1 mg/dL (1.8-2.4)
[2023-01-09 09:09] VITALS: BP 102/67; PULSE 63; RESP 18; TEMP 36.1; O2SAT 96
--- NOTE | 2023-01-09 09:11 | CMPROGNOTE_ITS ---
Date of service: 01/09/23 Time of Service: 09:11 Care Management Progress Note Progress Note Text Progress Note Text: S/O: Lacie was lying in bed when CM met with her.She remains pleasant and engages easily with CM and staff. It appears that blood cultures were not drawn on Saturday, so her antibiotic regimen will officially have a start date of 01/08/23, assuming cultures remain negative. If ID at [facility] recommends at least 5 days of IV antibiotics before transitioning to an oral regimen, her discharge date won't be until Saturday. While disappointed, aLcie informed CM that she understands. CM has been in communication with [facility] about re-institution of her TPN and informed them of the anticipated delay in discharge. A:Lacie is a 57 year old woman admitted on 01/04/23 with gram negative sepsis P: Anticipate Lacie will be discharged home with no new services. She will follow up with her PCP and plan of care and transport with family. CM will follow and continue to assess for discharge needs.
--- NOTE | 2023-01-09 11:21 | RESPIRATORY ---
RT spoke with patient concerning her home inhaler of Advair Diskus and if she uses it or not. Patient stated she only uses the inhaler if needed when her allergies are bothering her. Currently, the patient does not want anything to replace it during her stay at the hospital. She feels if she needs anything at anytime she will ask for it then.
[2023-01-09 13:57] LABS: Copper, Serum 110 mcg/dL (77-206)
[2023-01-09 14:30] VITALS: BP 114/74; PULSE 61; RESP 16; TEMP 36.7; O2SAT 95
[2023-01-09] MEDS: Albuterol HFA 8 GM 60 PUFF INH IH (15:05)
--- NOTE | 2023-01-09 16:20 | W.PM.PROGNOT ---
Date of Service Date of service: 01/09/23 Time of Service: 16:20 Assessment and Plan Assessment and plan (1) Bacteremia: Status: Acute Assessment and plan: repeat blood cultures have been negative to date. will continue meropenem for now. will discuss course of IV antibiotics with ID.. no definite source identified but suspect port infection, it was surgically removed but tested negative but had been on appropriate antibiotics for several days prior. also had dental work done 2-3 weeks prior. (2) Hypothyroid: Status: Chronic Assessment and plan: Will continue same management TSH of 8.04 on 04/14/21 Poor absorption d/t short-gut syndrome. Already high dose of levothyroxine 400mcg daily. PCP f/U outpt Qualifiers: Hypothyroidism type: other Qualified Code(s): E03.8 - Other specified hypothyroidism (3) Asthma: Status: Chronic Assessment and plan: Will continue same management Home Advair. PRN albuterol MDI and levalbuterol neb prn Stable w/o exacerbation. Qualifiers: Asthma complication type: unspecified Asthma persistence: unspecified Asthma severity: unspecified severity Qualified Code(s): J45.909 - Unspecified asthma, uncomplicated (4) Hypomagnesemia: Status: Acute Assessment and plan: replete and follow (5) Short gut syndrome: Status: Chronic Assessment and plan: Cont home TPN - when a line is able to be placed - discussion with Dr Dotson - she will order TPN but patient refused TPN until a new central line is placed, she has had a bad experience with a peripheral line had peripheral TPN infiltrated. Dr Dotson was aware Qualifiers: Short bowel syndrome type: unspecified whether colon in continuity Qualified Code(s): K90.829 - Short bowel syndrome, unspecified (6) On deep vein thrombosis (DVT) prophylaxis: Status: Acute Assessment and plan: We will continue Heparin SC , resumed post-surgery (7) Discharge planning issues: Status: Acute Assessment and plan: CM to follow-up with new discharge needs None anticipated at this time discussed with DR Griffiths Subjective Subjective Patient reports: no new complaints, feels better, tolerating liquids well, tolerating a regular diet, voiding w/o difficulty and afebrile; denies shortness of breath Exam Narrative Exam Narrative: Lying in bed. Conversational. Const General: cooperative and no acute distress Nutritional Appearance: average body habitus Orientation: alert and oriented x3 Eyes General: appearance normal, both eyes and all related structures Conjunctivae: conjunctivae normal Sclera: sclerae normal Resp Effort & Inspection: normal respiratory effort Auscultation: clear to auscultation bilaterally Cardio Rate: regular rate Rhythm: regular rhythm and abnormal rhythm Heart Sounds: S1 normal and S2 normal GI Inspection: distended Palpation: soft, tender (mild in LLQ) and ascites Percussion: fluid wave Auscultation: hypoactive bowel sounds Skin General skin exam: other (surgical incision healing no erythema) Rashes: no rashes Neuro General: patient alert, patient awake and patient oriented x3 Extrem General: no pedal edema, no calf tenderness and edema Laterality: bilateral (trace) Psych Appearance: grossly normal Mental Status: mental status grossly normal Mood: congruent mood Affect: normal affect Objective Last Vital Signs Temp 36.7 C 01/09/23 14:30 Pulse 61 01/09/23 14:30 Resp 16 01/09/23 14:30 BP 114/74 01/09/23 14:30 Pulse Ox 95 01/09/23 14:30 Laboratory Results - last 24 hr 01/07/23 01/09/23 11:20 06:50 WBC 4.85 RBC 4.05 Hgb 12.3 Hct 38.0 MCV 94 MCH 30.4 MCHC 32.4 RDW 13.7 Plt Count 248 MPV 10.2 Immature Gran % 0.6 Neutrophils % 36.3 Lymphocytes % 40.6 Monocytes % 9.9 Eosinophils % 9.7 Basophils % 2.9 Nucleated RBC % 0.0 Absolute Neutrophils 1.76 Absolute Lymphocytes 1.97 Absolute Monocytes 0.48 Absolute Eosinophils 0.47 Absolute Basophils 0.14 Sodium 137 Potassium 4.0 Chloride 105 Carbon Dioxide 25.9 Anion Gap 6.1 BUN 12 Creatinine 0.6 Est GFR (CKD-EPI 2020) 105.28 Glucose 88 Calcium 8.9 Magnesium 2.1 Serum Copper 110 Time Spent with Patient Time Spent with Patient: 25-34 minutes Time was spent: preparing to see the patient(eg.review tests), obtaining and/or reviewing separately otained hiistory and ordering medications,tests, procedures
[2023-01-09] MEDS: Loratidine 10 MG TAB PO (21:07)
[2023-01-09] MEDS: Zolpidem 5 MG TAB PO (21:07)
[2023-01-09] MEDS: Loperamide 2 MG CAP PO (21:07)
[2023-01-09 23:09] VITALS: BP 98/63; PULSE 60; RESP 16; TEMP 36.4; O2SAT 94
[2023-01-10] VITALS (10 sets, daily range): BP systolic 95–127; BP diastolic 60–76; PULSE 64–91; RESP 16–20; TEMP 35.6–37.1; O2SAT 93–99; BMI 26.1
[2023-01-10] MEDS: Levothyroxine 175 MCG TAB 350 MCG PO (05:59)
--- NOTE | 2023-01-10 09:05 | PDOC.CMPRO ---
Date of service: 01/10/23 Time of Service: 09:05 Care Management Progress Note Progress Note Text Progress Note Text: S/O: Lacie was sitting up in bed when CM met with her. She continues to feel well but is admittedly becoming more bored and frustrated with the prolonged course of her hospital stay. This afternoon she is scheduled to have her implanted port replaced so she can resume her home TPN administration. A:Lacie is a 57 year old woman admitted on 01/04/23 with gram negative sepsis P: Anticipate Lacie will be discharged home with no new services. She will follow up with her PCP and plan of care and transport with family. CM will follow and continue to assess for discharge needs.
[2023-01-10] MEDS: Pantoprazole 40 MG TABCR PO ×2 (09:13→21:35)
--- NOTE | 2023-01-10 09:44 | W.PM.PROGNOT ---
Date of Service Date of service: 01/10/23 Time of Service: 09:44 Assessment and Plan Assessment and plan (1) Vascular catheter infection: Status: Acute Assessment and plan: Recent blood cultures remain negative to date. I think it is fine to insert a new Groshong catheter, and reinstitute her TPN as soon as possible. We talked about the risks and benefits of the procedure, as well as the nature of the operation. I think she has a great understanding of this, I will make arrangements to proceed with new central line later today. Qualifiers: Encounter type: initial encounter Qualified Code(s): T82.7XXA - Infection and inflammatory reaction due to other cardiac and vascular devices, implants and grafts, initial encounter Subjective Subjective Interval history since last seen: Lacie, has been feeling well over the past few days. She denies any systemic signs of infection. Objective Last Vital Signs Temp 98.1 F 01/10/23 07:10 Pulse 64 01/10/23 07:10 Resp 18 01/10/23 07:10 BP 97/65 L 01/10/23 07:10 Pulse Ox 93 01/10/23 07:10 Laboratory Results - last 24 hr 01/07/23 11:20 Serum Copper 110 Time Spent with Patient Time Spent with Patient: <25 minutes Time was spent: preparing to see the patient(eg.review tests), indepentently interpreting results, counseling the patient and care coordination
--- NOTE | 2023-01-10 13:36 | W.PM.PROGNOT ---
Date of Service Date of service: 01/10/23 Time of Service: 13:36 Assessment and Plan Assessment and plan (1) Bacteremia: Status: Acute Assessment and plan: repeat blood cultures have been negative to date. will continue meropenem for now. will discuss course of IV antibiotics with ID.. no definite source identified but suspect port infection, it was surgically removed but tested negative but had been on appropriate antibiotics for several days prior. also had dental work done 2-3 weeks prior. (2) Hypothyroid: Status: Chronic Assessment and plan: Will continue same management TSH of 8.04 on 04/14/21 Poor absorption d/t short-gut syndrome. Already high dose of levothyroxine 400mcg daily. PCP f/U outpt Qualifiers: Hypothyroidism type: other Qualified Code(s): E03.8 - Other specified hypothyroidism (3) Asthma: Status: Chronic Assessment and plan: Will continue same management Home Advair. PRN albuterol MDI and levalbuterol neb prn Stable w/o exacerbation. Qualifiers: Asthma severity: unspecified severity Asthma persistence: unspecified Asthma complication type: unspecified Qualified Code(s): J45.909 - Unspecified asthma, uncomplicated (4) Hypomagnesemia: Status: Acute Assessment and plan: replete and follow (5) Short gut syndrome: Status: Chronic Assessment and plan: Cont home TPN once new port placed. anticipate port placement today with general surgery. Qualifiers: Short bowel syndrome type: unspecified whether colon in continuity Qualified Code(s): K90.829 - Short bowel syndrome, unspecified (6) On deep vein thrombosis (DVT) prophylaxis: Status: Acute Assessment and plan: on hold for planned procedure today (7) Discharge planning issues: Status: Acute Assessment and plan: CM to follow-up with new discharge needs None anticipated at this time discussed with DR Griffiths Subjective Subjective Patient reports: no new complaints, tolerating liquids well, tolerating a regular diet, voiding w/o difficulty and afebrile; denies shortness of breath Exam Const General: cooperative and no acute distress Nutritional Appearance: average body habitus Orientation: alert and oriented x3 Eyes General: appearance normal, both eyes and all related structures Conjunctivae: conjunctivae normal Sclera: sclerae normal Resp Effort & Inspection: normal respiratory effort Cardio Rate: regular rate Rhythm: regular rhythm GI Palpation: soft and ascites Skin General skin exam: other (surgical incision healing no erythema) Rashes: no rashes Neuro General: patient alert, patient awake and patient oriented x3 Extrem General: no pedal edema, no calf tenderness and edema Laterality: bilateral (trace) Psych Appearance: grossly normal Mental Status: mental status grossly normal Mood: congruent mood Affect: normal affect Objective Last Vital Signs Temp 36.7 C 01/10/23 07:10 Pulse 64 01/10/23 07:10 Resp 18 01/10/23 07:10 BP 97/65 L 01/10/23 07:10 Pulse Ox 93 01/10/23 07:10 Laboratory Results - last 24 hr 01/07/23 11:20 Serum Copper 110 Time Spent with Patient Time Spent with Patient: 25-34 minutes Time was spent: preparing to see the patient(eg.review tests), referring, communicating with other health direct care worker and care coordination
--- NOTE | 2023-01-10 14:37 | ANES.PREOP_ITS ---
General Info Date of Service Date Performed: 01/10/23 Height: 5 ft 4 in Weight: 68.946 kg Body Mass Index (BMI): 26.1 Surgical Procedure: Operation Date: 01/10/23 13:40 Proposed Procedure Side Surgeon p Subclavian Groshong Catheter Placement Left Isrrael Luis MD Meds Allergies and Home Medications Allergies Allergy/AdvReac Type Severity Reaction Status Date / Time amoxicillin Allergy Severe anaphylasis Verified 01/04/23 05:44 exenatide [From [place]] AdvReac Severe Nausea Verified 01/04/23 05:44 adhesive tape AdvReac Skin Rash Verified 01/04/23 05:44 codeine AdvReac Nausea Verified 01/04/23 05:44 morphine AdvReac Nausea Verified 01/04/23 05:44 Home Medication Medication Instructions Recorded prochlorperazine maleate 5 mg 1 tab PO Q6H PRN nausea 11/04/17 tablet multivitamin 1 tab PO DAILY 05/27/18 cyanocobalamin (vitamin B-12) 500 1,000 mcg (2 x 500 mcg) PO DAILY 05/28/18 mcg tablet (Vitamin B-12) #0 tabs magnesium chloride 64 mg 64 mg PO BID #0 tabs 05/28/18 (magnesium chloride) tablet,delayed release (Mag 64) cyanocobalamin (vitamin B-12) 1,000 mcg IM QMONTH 11/06/18 1,000 mcg/mL injection solution albuterol sulfate 90 mcg/actuation 2 puff inhalation Q4H PRN 11/27/19 aerosol inhaler (Ventolin HFA) colestipol 1 gram tablet 1 gm PO ONCE 11/27/19 ergocalciferol (vitamin D2) 1,250 1,250 mcg PO QWEEK 11/27/19 mcg (50,000 unit) capsule loperamide 2 mg capsule 2 mg PO Q6H PRN 11/27/19 (Anti-Diarrheal (loperamide)) potassium chloride 20 mEq 20 meq PO BID 11/27/19 tablet,extended release fluticasone furoate 200 1 inh inhalation DAILY 01/04/23 mcg-vilanterol 25 mcg/dose inhalation powder (Breo Ellipta) levothyroxine 175 mcg tablet 350 mcg PO DAILY 01/04/23 [id number]-[id number] 2 cap PO TID 01/04/23 24,000-76,000-120,000 unit capsule,delayed rel (Creon) pantoprazole 40 mg tablet,delayed 40 mg PO BID 01/04/23 release Current Visit Medications: Current Medications Generic Name Dose Route Start Last Admin Trade Name Freq PRN Reason Stop Dose Admin Acetaminophen 650 mg 01/04/23 16:17 01/06/23 08:42 Acetaminophen 325 Mg Tab PO 650 mg Q4H PRN PRN Administration Al Hydrox/Mg Hydrox/Simethicone 30 ml 01/04/23 16:17 Mylanta Suspension 30 Ml Cup PO Q4H PRN PRN Albuterol Sulfate 2 puff 01/04/23 10:15 01/09/23 15:05 Albuterol Hfa 8 Gm 60 Puff Inh IH 2 puff Q4H PRN PRN Administration Lipase/Protease/Amylase 2 cap 01/04/23 17:00 01/10/23 12:17 Creon, Lipase 24,000 Capcr PO Not Given QMEALS AMITA Lipase/Protease/Amylase 1 cap 01/04/23 14:33 Creon, Lipase 24,000 Capcr PO DAILY PRN PRN WITH A SNACK Calcium Carbonate 500 mg 01/04/23 16:17 01/06/23 09:29 Calcium Carbonate *Tums* 500 Mg Chew PO 500 mg QID PRN PRN Administration Colestipol HCl 2 gm 01/05/23 08:00 01/10/23 10:28 Colestipol 1 Gm Tab PO Not Given BID@0800,1700 AMITA Cyanocobalamin 1,000 mcg 01/05/23 08:30 01/10/23 10:28 Cyanocobalamin 500 Mcg Tab PO Not Given DAILY AMITA Device 1 each 01/04/23 10:15 Inhaler, Assist Device MC DIRECTED AMITA Ergocalciferol 50,000 units 01/07/23 10:00 01/07/23 10:16 Ergocalciferol 00849 Units Cap PO 50,000 units Q168H AMITA Administration Heparin Sodium (Porcine) 5,000 units 01/04/23 14:00 01/09/23 21:08 Heparin 5,000 Units/Ml Vial SC 5,000 units Q8H AMITA Administration Sodium Chloride 500 mls @ 0 mls/hr 01/05/23 03:43 01/06/23 22:48 Saline 500ml Bag IV Infused PRN PRN Infusion As Directed Potassium Chloride/Sodium Chloride 1,000 mls @ 100 mls/hr 01/06/23 11:45 01/06/23 23:56 Kcl 20meq/D5-0.45% Nacl IV Infused INFUSION [facility] Infusion Meropenem 2 gm/ Sodium 100 mls @ 200 mls/hr 01/06/23 14:00 01/10/23 14:02 Chloride IVPB 200 mls/hr Q8H AMITA Administration Sodium/Potass/Mag/Brenden/Chlor/ 1,031 mls @ 85.917 mls/hr 01/10/23 17:00 Acetate 20 ml/ Multivitamins IV 10 ml/ Zinc/Copper/Manganese/ .BY DURATION [facility] Selenium 1 ml/ Amino Acids/ Dextrose Sodium/Potass/Mag/Brenden/Chlor/ 1,020 mls @ 85 mls/hr 01/10/23 17:00 Acetate 20 ml/ Amino Acids/ IV Dextrose .BY DURATION [facility] Insulin Aspart 0 units 01/10/23 12:00 01/10/23 13:27 Insulin Aspart 300 Units/3 Ml Pen SC Not Given Q6H [facility] Protocol Ketorolac Tromethamine 15 mg 01/06/23 13:42 Ketorolac 15 Mg/Ml Vial IVP 01/11/23 13:41 Q6H PRN PRN Lactobacillus Acidophilus/Casei 1 cap 01/08/23 14:30 01/10/23 10:28 L. Acidophilus, Casei, Rhamnosus Cap PO Not Given DAILY [facility] Levothyroxine Sodium 350 mcg 01/05/23 06:00 01/10/23 05:59 Levothyroxine 175 Mcg Tab PO 350 mcg DAILY@0600 [facility] Administration Loperamide HCl 2 mg 01/04/23 10:15 01/09/23 21:07 Loperamide 2 Mg Cap PO 2 mg Q6H PRN PRN Administration Loratadine 10 mg 01/05/23 22:00 01/09/23 21:07 Loratidine 10 Mg Tab PO 10 mg HS AMITA Administration Magnesium Chloride 64 mg 01/04/23 20:00 01/10/23 10:28 Magnesium Chloride 64 Mg Tabcr PO Not Given BID [facility] Multi-Ingredient Supplement 1 ounce 01/06/23 20:00 01/10/23 10:29 Protein Nutritional Supplement 16 Gm 1 Ounce Packet PO Not Given BID [facility] Multivitamins 1 tab 01/05/23 08:30 01/10/23 10:29 Multivitamin Tab PO Not Given DAILY [facility] Pantoprazole Sodium 40 mg 01/04/23 20:00 01/10/23 09:13 Pantoprazole 40 Mg Tabcr PO 40 mg BID@0730,2000 AMITA Administration Potassium Chloride 20 meq 01/04/23 17:00 01/10/23 10:29 Potassium Chloride 20 Meq Tabcr PO Not Given BID@0800,1700 [facility] Prochlorperazine Maleate 5 mg 01/05/23 08:30 Prochlorperazine 5 Mg Tab PO Q6H PRN PRN NAUSEA Sodium Chloride 0 ml 01/04/23 21:20 01/08/23 20:17 Normal Saline Flush 10 Ml Syr IVP 10 ml PRN PRN Administration Zolpidem Tartrate 5 mg 01/06/23 12:09 01/09/23 21:07 Zolpidem 5 Mg Tab PO 5 mg HS PRN PRN Administration PFSH Active Problems Active Problems: Problem Status Onset Code Vascular catheter infection T82.7XXA Discharge planning issues Z02.9 On deep vein thrombosis (DVT) prophylaxis Z79.899 Hypothyroid E03.9 Bacteremia R78.81 Fever R50.9 DVT (deep venous thrombosis) I82.409 Asthma J45.909 Hypoalbuminemia E88.09 Hypocalcemia E83.51 Hyperglycemia R73.9 LOGAN (acute kidney injury) N17.9 Chronic pancreatitis K86.1 Hyponatremia E87.1 Leukocytosis D72.829 Hypotension I95.9 Pancreatitis K85.90 Neutropenic fever D70.9, R50.81 Anemia D64.9 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 states she had a blood clot in her neck 2014 Intestinal volvulus Diabetes Pt. 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/ As per PCP note 01/10/15 Lactic acidosis Surgical History Surgical History (Reviewed 01/05/23 @ 21:00 by MUKUND [place] S/P cholecystectomy Incarcerated hernia s/p bowel resection History of hysterectomy FOR OVARIAN TUMOR W/BILAT OOPHORECTOMY W/UTERUS REMOVED BUT CERVIX REMAINS Tibial plateau fracture (10/30/18) s/p ORIF on 11/10/2018 Tobacco Smoking/Tobacco Use Status: Never Alcohol Alcohol Intake: former Substance Use Substance use: Occasionally Substance use type: marijuana Vital Signs and Lab Results Vital Signs Most Recent Vital Signs in EMR: Most Recent Vital Signs Temp Pulse Resp BP Pulse Ox 36.7 C 64 18 97/65 L 93 01/10/23 07:10 01/10/23 07:10 01/10/23 07:10 01/10/23 07:10 01/10/23 07:10 Lab Results 01/09/23 06:50 01/09/23 06:50 Blood Type / Crossmatch: 2 No Data to Display Complete Blood Count: 2 White Blood Count 4.85 10^3/uL (4.4-10.8) 01/09/23 06:50 Red Blood Count 4.05 10^6/uL (3.93-5.22) 01/09/23 06:50 Hemoglobin 12.3 g/dL (11.2-15.7) 01/09/23 06:50 Hematocrit 38.0 % (36.0-46.0) 01/09/23 06:50 Platelet Count 248 10^3/uL (130-400) 01/09/23 06:50 Venous Blood Lactate 1.1 mmol/L (0.6-1.4) 01/04/23 06:15 Complete Metabolic Panel: 2 Sodium 137 mmol/L (136-145) 01/09/23 06:50 Potassium 4.0 mmol/L (3.5-5.1) 01/09/23 06:50 Chloride 105 mmol/L (98-107) 01/09/23 06:50 Carbon Dioxide 25.9 mmol/L (21.0-32.0) 01/09/23 06:50 BUN 12 mg/dL (7-18) 01/09/23 06:50 Creatinine 0.6 mg/dL (0.55-1.02) 01/09/23 06:50 Est GFR (CKD-EPI 2020) 105.28 (mL/min/1.73m2) 01/09/23 06:50 Magnesium 2.1 mg/dL (1.8-2.4) 01/09/23 06:50 Calcium 8.9 mg/dL (8.5-10.1) 01/09/23 06:50 Albumin 1.9 g/dL (3.4-5.0) L 01/05/23 06:20 Glucose 88 mg/dL (74-106) 01/09/23 06:50 C-Reactive Protein 1.72 mg/dL (0.0-0.3) H 01/08/23 07:25 Liver Function Panel: 2 Alanine Aminotransferase (ALT/SGPT) 98 U/L (14-59) H 01/05/23 0 6:20 Aspartate Amino Transf (AST/SGOT) 32 U/L (15-37) 01/05/23 06:20 Coagulation Panel: 2 INR International Normalized Ratio 1.3 (0.9-1.1) H 01/03/23 20 :23 Prothrombin Time 12.4 sec (9.1-11.1) H 01/03/23 20:23 Activated Partial Thromboplast Time 29.5 sec (23.6-32.8) 20:23 Cardiac Panel: 2 No Data to Display Arterial Blood Gas: 2 No Data to Display Venous Blood Gas: 2 Venous Blood pH 7.39 (7.31-7.41) 01/04/23 06:15 Venous Blood Partial Pressure O2 48 mmHg 01/04/23 06:15 Venous Blood Partial Pressure CO2 33 mmHg (41-51) L 01/04/23 06 :15 Venous Blood Oxygen Saturation 84 % 01/04/23 06:15 Venous Blood HCO3 20 mmol/L (23-28) L 01/04/23 06:15 Venous Blood Base Excess -5 mmol/L (-2-3) L 01/04/23 06:15 Venous Blood Total Carbon Dioxide 18 mmol/L (24-29) L 01/04/23 06:15 Pancreas Panel: 2 Lipase 17 U/L (16-77) 01/03/23 20:23 Thyroid Panel: 2 Thyroid Stimulating Hormone (TSH) 19.34 uIU/mL (0.36-3.74) H 01/03/23 20:23 Infectious Disease: 2 Coronavirus (COVID-19)(PCR) Negative (Negative) 01/03/23 21:04 Coronavirus 2019 Source Nasopharynx 01/03/23 21:04 Influenza Virus Type A (PCR) Negative (Negative) 01/03/23 21:0 4 Influenza Virus Type B (PCR) Negative (Negative) 01/03/23 21:0 4 Respiratory Syncytial Virus (PCR) Negative (Negative) 01/03/23 21:04 Blood Cultures: 2 No Data to Display Toxicology Panel: 2 No Data to Display Imaging and Studies Imaging and Studies Study information below may be from another EMR and interpreted by another provider. Please see original notes in EMR for more complete details. EKG Summary: 06/19/2021: Exam: Resting ECG Reason for Exam: tachycardia Patient Location: E HR:116 bpm ECG Measurements Heart Rate 116 AXIS ID 173 P 65 QRSd 75 QRS 75 QT 299 T34 QTc 416 Conclusion Sinus tachycardia...rate> 99 Probable left atrial enlargement...P >50mS, <-0.10mV V1 Low voltage, extremity leads...all extremity leads <0.5mV no STEMI I have reviewed and interpreted ECG and agree with software generated interpretation. Anesthesia Assessment and Plan Anesthesia History Personal History: No History of Anesthesia Complications Family History: No Family History of Anesthesia Complications Exercise Tolerance Exercise Tolerance: Metabolic Equivalents>4 Pertinent Negatives Pertinent Negatives: No History of CVA/TIA Cardiac & Pulmonary Exam Cardiac Exam: Normal S1/S2 Heart Sounds Pulmonary Exam: Clear Bilateral Breath Sounds Implantable Cardiac Device Does patient have a Pacemaker or an ICD?: No Airway Exam Known Difficult Airway: No Mallampati Class: 2 Mouth Opening: Normal (> 3cm) Thyromental Distance: Greater than 3 cm Neck Range of Motion: Full ROM Neck Circumference: Normal Teeth Condition: Normal Dentition ASA Classification ASA Score: ASA 3 Emergency Case?: No NPO Status NPO Status: NPO Clears >2 hours, Solids >8 hours Anesthesia Plan Resuscitation Status: Full Code Anesthesia Technique: General Anesthesia Airway Planned: Natural Airway Monitors Used: Standard Monitors
[2023-01-10] MEDS: Lactated Ringers 1,000 ML 30 ML IV (15:10)
[2023-01-10] MEDS: Lidocaine 1.5 % Pres-Free W/EPI 1/200,000 30 ML VIAL (15:32)
--- NOTE | 2023-01-10 15:48 | DI.RAD_ITS ---
Exam(s) RF LINE PLACEMENT OR EXAM: RF LINE PLACEMENT OR CLINICAL HISTORY: Bacteremia TECHNIQUE: 2D and realtime digital imaging was performed. CONTRAST MATERIAL: Refer to procedure report. COMPARISON: No exams were available for comparison FINDINGS: Fluoroscopy was provided for Dr. Isrrael Luis during the performance of a central line placement. Pl ease refer to the procedure report for complete details. Ka,r=0.78 mGy IMPRESSION: RADIATION DOSE DELIVERED:
--- NOTE | 2023-01-10 15:53 | W.PM.OP ---
Date of service: 01/10/23 Time of Service: 15:53 Operative Note Operative Note DATE OF PROCEDURE: 01/06/23 PRE-OP DIAGNOSIS: Short gut syndrome POST-OP DIAGNOSIS: same PROCEDURE: Insertion of tunneled Groshong catheter via left subclavian approach SURGEON: Isrrael Luis ANESTHESIA TYPE: General:No Airway Refer to Anesthesia Record ESTIMATED BLOOD LOSS: 5 PATHOLOGY: none sent COMPLICATIONS: None Patient was transported to: PACU Patient's condition: stable Implants: Groshong 8 Romanian single-lumen CV catheter Indications: Arpita is a 57-year-old woman with short gut syndrome who is dependent upon total parenteral nutrition. She developed bacteremia requiring removal of her previous tunneled catheter. Blood cultures have been negative to date, and she was a suitable Procedure Description: Patient was brought to the operating room and assisted onto the operating room table. General anesthesia was introduced with a natural airway. Next, the left subclavian and internal jugular area were prepped and draped in the usual fashion. I then established a generous field block using local anesthetic next, with the assistance of real-time ultrasonography, I cannulated the left subclavian vein at the axilla subclavian junction. Guidewire was introduced, and appropriate positioning was confirmed with fluoroscopy. Next, over the guidewire, I established the peel-away introduction catheter. Again, fluoroscopy was used to confirm the appropriate trajectory. I then passed the 8 Romanian single-lumen Groshong catheter through the introducer leaving an appropriate length to tunnel the cuff. Local anesthesia was then used along the length of the tunneled catheter. The end of the catheter was brought out through the tunnel using a separate incision site. Next, the catheter was cut to length, and the external components were applied according to the department secretary's instructions. The catheter was then aspirated returning dark red venous blood. Catheter was then flushed in the usual fashion. The catheter was affixed to the skin using the butterfly device, and a chlorhexidine Biopatch was applied to the incision site to help reduce chances of surgical site infection. Band-Aids were applied, and the patient was allowed awaken from the anesthetic and transferred to the recovery unit.
--- NOTE | 2023-01-10 16:05 | W.ANESPOSTOP ---
Postoperative Evaluation Date, Time and Location Date Performed: 01/10/23 Time Performed: 16:05 Patient Location: PACU Vital Signs Most Recent Imported Vital Signs: Most Recent Vital Signs Temp Pulse Resp BP Pulse Ox 36.6 C 82 17 110/68 94 01/10/23 15:58 01/10/23 15:58 01/10/23 15:58 01/10/23 15:58 01/10/23 15:58 Pain Score Most Recent Pain Score: Most Recent Pain Score Pain Level [Bilateral Abdomen] 0 01/08/23 20:15 Pain Level 4 01/10/23 15:58 Assessment Mental Status: Awake (Alert & Oriented to Patient Baseline) Airway and Respiratory Function: Patent airway with normal (patient baseline) respiratory exam Cardiovascular Function: Hemodynamically Stable Hydration Status: Adequately Hydrated Nausea & Vomiting: No Nausea or Vomiting Pain: Pain is tolerable per patient Peripheral Nerve Block: Patient did not receive a nerve block
[2023-01-10] MEDS: fentaNYL 100 MCG/2 ML VIAL IVP (16:06)
[2023-01-10] MEDS: Creon, Lipase 24,000 CAPCR 2 CAP PO (17:12)
[2023-01-10] MEDS: Colestipol 1 GM TAB 2 GM PO (17:13)
[2023-01-10] MEDS: Potassium Chloride 20 MEQ TABCR PO (17:13)
[2023-01-10] MEDS: Magnesium Chloride 64 MG TABCR PO (21:35)
[2023-01-10] MEDS: Zolpidem 5 MG TAB PO (21:35)
[2023-01-10] MEDS: Loratidine 10 MG TAB PO (21:35)
[2023-01-10] MEDS: Normal Saline Flush 10 ML SYR IVP (21:36)
[2023-01-10] MEDS: Ketorolac 15 MG/ML VIAL IVP (21:44)
--- NOTE | 2023-01-11 | DI.RAD_ITS ---
Exam(s) XR PORTABLE CHEST AP POST LINE EXAM: XR PORTABLE CHEST AP POST LINE CLINICAL HISTORY: line confirmation requested by home health. TECHNIQUE: 2D digital imaging was performed. COMPARISON: CR,XR XR CHEST 2V PA LATERAL from 01/03/2023 FINDINGS: Single AP portable view. Previously present right-sided Port-A-Cath is been removed and there is now a left subclavian central line. Its distal tip is in the SVC just beyond junction with the innominate vein.. Heart size is upper normal. The mediastinum is not widened. Lungs are clear. No infiltrates nor obvious pleural effusions. IMPRESSION: No acute pulmonary findings on this single AP portable view of the chest. Distal tip of the recently placed left subclavian line is in the SVC just beyond the innominate vein junction DATA REPOSITORY: RADIATION DOSE DELIVERED:
[2023-01-11 00:22] VITALS: BP 91/55; PULSE 63; RESP 16; TEMP 35.3; O2SAT 92
[2023-01-11 05:10] VITALS: BP 94/62; PULSE 65; O2SAT 92
[2023-01-11] MEDS: Ketorolac 15 MG/ML VIAL IVP (05:33)
[2023-01-11] MEDS: Albuterol HFA 8 GM 60 PUFF INH IH ×2 (05:34→11:56)
[2023-01-11] MEDS: Levothyroxine 175 MCG TAB 350 MCG PO (05:44)
[2023-01-11 06:48] LABS: Abs Immature Grans 0.02 10^3/uL (0.0-0.06); Absolute Basophil Count 0.12 10^3/uL (0.0-0.2); Absolute Lymphocyte Count 1.85 10^3/uL (1.2-3.4); Absolute Monocyte Count 0.47 10^3/uL (0.1-0.8); Absolute Neutrophil Count 2.23 10^3/uL (1.2-6.7); Basophils % 2.3; Eosinophils % 9.6; HGB 12.5 g/dL (11.2-15.7); Immature Grans % 0.4; Lymphocytes % 35.6; MCH 31.1 pg (27.0-33.0); MCHC 32.9 % (32.0-36.0); MCV 95 fL (80-95); MPV 10.1 fL (8.0-11.0); Monocytes % 9.1; Platelet Count 290 10^3/uL (130-400); RBC 4.02 10^6/uL (3.93-5.22); RDW 13.6 % (11.7-14.6); RDW-SD 47.4 fL; WBC 5.19 10^3/uL (4.4-10.8)
[2023-01-11 07:13] LABS: Magnesium 2.2 mg/dL (1.8-2.4); PHOSPHORUS 2.2 mg/dL (2.6-4.7)
[2023-01-11 07:15] LABS: ALT 213 U/L (14-59); AST 99 U/L (15-37); Albumin 2.8 g/dL (3.4-5.0); Alkaline Phosphatase 268 U/L (46-116); Anion Gap 8.6 mmol/L (3-11); BUN 19 mg/dL (7-18); Bilirubin, Total 0.3 mg/dL (0.2-1.0); CO2 25.4 mmol/L (21.0-32.0); CREATININE 0.7 mg/dL (0.55-1.02); Calcium 9.2 mg/dL (8.5-10.1); Chloride 103 mmol/L (98-107); Estimated GFR 101.44 (mL/min/1.73m2); Glucose 101 mg/dL (74-106); Sodium 137 mmol/L (136-145); Total Protein 7.4 g/dL (6.4-8.2)
[2023-01-11 07:27] LABS: Triglyceride 164 mg/dL (<150)
[2023-01-11] MEDS: Magnesium Chloride 64 MG TABCR PO (07:53)
[2023-01-11] MEDS: Colestipol 1 GM TAB 2 GM PO (07:53)
[2023-01-11] MEDS: Creon, Lipase 24,000 CAPCR 2 CAP PO ×2 (07:53→11:53)
[2023-01-11] MEDS: Pantoprazole 40 MG TABCR PO (07:54)
[2023-01-11] MEDS: Cyanocobalamin 500 MCG TAB 1000 MCG PO (07:54)
[2023-01-11] MEDS: Multivitamin TAB 1 TAB PO (07:55)
[2023-01-11] MEDS: Potassium Chloride 20 MEQ TABCR PO (07:55)
--- NOTE | 2023-01-11 14:17 | DSE_ITS ---
Date of service: 01/11/23 Time of Service: 14:19 DS: Diagnosis Discharge Diagnosis (1) Bacteremia: Status: Acute Asessment and Plan: blood cultures grew Enterbacter cloacae complex sensitive to carbapenems and levaquin. he was treated with meropenem inpatient and will be discharged on oral levofloxacin 750 mg daily for 14 days from negative culture, first reported was second set on 01/04/2023. on 01/08 mediport removed, cultured negative on 01/10 Insertion of tunneled Groshong catheter via left subclavian approach by general surgery. (2) Hypothyroid: Status: Chronic (3) Asthma: Status: Chronic (4) Hypomagnesemia: Status: Acute (5) Short gut syndrome: Status: Chronic Asessment and Plan: TPN reinstituted and tolerating well. followed outpatient GI at [facility] who oversees care Discharge Plan Disposition Patient Disposition: Home Condition: Stable Discharge Details Reason For Visit: Gram Neg Sepsis Admit Date/Time: 01/04/23 10:15 Admit Provider: Ramón Suero Attending Provider: Ramón Suero Primary Care Provider: Robbie Philippe Home Meds and New Rx's Prescriptions: New levofloxacin 750 mg tablet 750 mg PO DAILY Qty: 10 0RF naproxen 500 mg tablet 500 mg PO BID Qty: 60 0RF Rx Instructions: take with food Continued colestipol 1 gram tablet 1 gm PO ONCE Rx Instructions: swallow whole tab w/any liquid;do not crush/chew/cut;administer other meds 1hr before/4hr after taking dose ergocalciferol (vitamin D2) 1,250 mcg (50,000 unit) capsule 1,250 mcg PO QWEEK loperamide [Anti-Diarrheal (loperamide)] 2 mg capsule 2 mg PO Q6H PRN potassium chloride 20 mEq tablet extended release 20 meq PO BID albuterol sulfate [Ventolin HFA] 90 mcg/actuation HFA aerosol inhaler 2 puff IH Q4H PRN Creon 24,000-76,000 -120,000 unit capsule,delayed release(DR/EC) 2 cap PO TID Rx Instructions: 2 caps orally; TAKE 2 CAPSULES 3 TIMES A DAY WITH MEALS AND 1 CAPSULE ONCE DAILY WITH A SNACK levothyroxine 175 mcg tablet 350 mcg PO DAILY Patient Comments: TAKE TWO TABLETS BY MOUTH EVERY MORNING WITH WATER ONLY pantoprazole 40 mg tablet,delayed release (DR/EC) 40 mg PO BID fluticasone furoate-vilanterol [Breo Ellipta] 200-25 mcg/dose blister with device 1 inh INHALATION DAILY prochlorperazine maleate 5 MG tablet 1 tab PO Q6H PRN (Reason: nausea) multivitamin Tablet 1 tab PO DAILY cyanocobalamin (vitamin B-12) [Vitamin B-12] 500 mcg Tablet 1,000 mcg PO DAILY Qty: 0 0RF Mag 64 64 mg Tablet,Delayed Release (Dr/Ec) 64 mg PO BID Qty: 0 0RF cyanocobalamin (vitamin B-12) 1,000 mcg/mL Solution 1,000 mcg IM QMONTH Discharge Instructions Instructions: Bacteremia (DC) Additional Instructions: ultrasound of right forearm shows occlusive thrombus within the superficial cephalic vein in the lateral aspect of the distal arm. you can apply warm compress to right forearm, take naproxen twice daily with food, discuss with you outpatient provider when to stop. Stand Alone Forms: Nursing Discharge Form Referrals: Isrrael Luis MD [ [facility] STAFF PHYSICIAN] - Activity:: Activity as Tolerated Equipment/Supplies:: No Equipment Needed Diet:: As Tolerated Discharge Orders Discharge Orders: Discharge Order (Routine); Ordered 01/11/23 Ordered By: Sally Shelley Discharge Data Discharge Date/Time-TO BE ENTERED AT DEPARTURE: 01/11/23 16:55 DS: Summary Time Spent with Patient providing and/or coordinating discharge services: Less than 30 minutes Status at Discharge Functional status at discharge: independent ambulation Overall status at discharge: patient is back to baseline Mental Status: mental status grossly normal Speech and Movement: speech and movement normal Mood: congruent mood Affect: normal affect Exam Psych Mental Status: mental status grossly normal Speech and Movement: speech and movement normal Mood: congruent mood Affect: normal affect DS: Data Vitals/I&O Vitals and I&O: Vital Signs Temperature 35.3 C L 01/11/23 00:22 Temperature Source Tympanic 01/11/23 00:22 Pulse 65 01/11/23 05:10 Pulse Rhythm Regular 01/11/23 09:50 Respiratory Rate 16 01/11/23 00:22 Respiratory Effort Normal, Non-Labored 01/11/23 09:50 Respiratory Depth Normal 01/11/23 09:50 Respiratory Pattern Normal 01/11/23 09:50 Blood Pressure 94/62 L 01/11/23 05:10 Blood Pressure Position Sitting 01/04/23 05:55 Pulse Oximetry 92 01/11/23 05:10 Respiratory End-tidal CO2 37 01/10/23 16:18 Oxygen Delivery Method Room Air 01/11/23 05:10 Oxygen Flow Rate 0 01/11/23 05:10 Pain Level 4 01/11/23 05:33 Comment bp called over the radio 01/09/23 09:09 Intake & Output 01/10/23 01/11/23 01/11/23 23:59 11:59 23:59 Intake Total 608 / 708 1371 / 1371 Balance 608 / 708 1371 / 1371 Weight 68.946 kg Intake: IV 608 / 708 1131 / 1131 Oral 240 / 240 Other: Comment Not witnessed, pt up independently to bathroom, denies issues voiding. independant Stool Size Moderate Stool Characteristics Liquid Emesis Description None Voiding Methods Toilet Toilet Data Completed and Pending Labs on day of discharge: Labs from last 24 hours 01/11/23 01/11/23 06:25 06:00 WBC 5.19 RBC 4.02 Hgb 12.5 Hct 38.0 MCV 95 MCH 31.1 MCHC 32.9 RDW 13.6 Plt Count 290 MPV 10.1 Immature Gran % 0.4 Neutrophils % 43.0 Lymphocytes % 35.6 Monocytes % 9.1 Eosinophils % 9.6 Basophils % 2.3 Nucleated RBC % 0.0 Absolute Neutrophils 2.23 Absolute Lymphocytes 1.85 Absolute Monocytes 0.47 Absolute Eosinophils 0.50 Absolute Basophils 0.12 Sodium 137 Potassium 4.0 Chloride 103 Carbon Dioxide 25.4 Anion Gap 8.6 BUN 19 H Creatinine 0.7 Est GFR (CKD-EPI 2020) 101.44 Glucose 101 Calcium 9.2 Phosphorus 2.2 L Magnesium 2.2 Total Bilirubin 0.3 AST 99 H ALT 213 H Alkaline Phosphatase 268 H C-Reactive Protein 0.60 H Total Protein 7.4 Albumin 2.8 L Prealbumin Pending Triglycerides 164 H Manganese Pending Zinc Pending Preliminary micro results at discharge 01/08/23 07:25 Blood Culture - Preliminary Blood NO GROWTH 72 HOURS 01/08/23 07:32 Blood Culture - Preliminary Blood NO GROWTH 72 HOURS PFSH All Active Problems (Updated 01/12/23 @ 00:01 by OSCAR ROBERTO) Vascular catheter infection (Acute) Discharge planning issues (Acute) On deep vein thrombosis (DVT) prophylaxis (Acute) Hypothyroid (Chronic) Bacteremia (Acute) Fever (Acute) DVT (deep venous thrombosis) (Chronic) Asthma (Chronic) Hypoalbuminemia (Acute) Hypocalcemia (Acute) Hyperglycemia (Acute) LOGAN (acute kidney injury) (Acute) Chronic pancreatitis (Acute) Hyponatremia (Acute) Leukocytosis (Acute) Hypotension (Acute) Pancreatitis (Chronic) Neutropenic fever (Acute) Anemia (Acute) Short gut syndrome (Chronic) Hypomagnesemia (Acute) Pharyngitis (Acute) Medical History Hx of blood clots Pt. states she had a blood clot in her neck 2013 Intestinal volvulus Diabetes Pt. 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/ As per PCP note 01/10/15 Lactic acidosis Surgical History S/P cholecystectomy Incarcerated hernia s/p bowel resection History of hysterectomy FOR OVARIAN TUMOR W/BILAT OOPHORECTOMY W/UTERUS REMOVED BUT CERVIX REMAINS Tibial plateau fracture (10/30/18) s/p ORIF on 11/10/2018 Family History Other Cancer Diabetes Heart disease Social History Smoking/Tobacco Use Status: Never Smoking risk assessment performed?: Yes Alcohol Intake: former Drug use: Occasionally Substance use type: marijuana Housing: house Current gender identity: female Do you feel safe at home: Yes Do you feel safe in your relationship?: Yes Time Spent with Patient Time Spent with Patient: <45 minutes Time was spent: preparing to see the patient(eg.review tests), obtaining and/or reviewing separately otained hiistory, ordering medications,tests, procedures, indepentently interpreting results and counseling the patient
--- NOTE | 2023-01-11 14:22 | PDOC.CMDIS ---
Date of service: 01/11/23 Time of Service: 14:22 LACE Index Scoring Tool Questions: Length of Stay (in days): 7 - 13 Was the patient admitted via the E.D.?: Yes Comorbidities: Diabetes w/o Complication E.D. Visits: 2 Answers: Total Score: 11 Risk of Readmission: High Risk Care Management Discharge Plan Reason for Hospitalization: Bacteremia Discharge Plan: Lacie will be discharged home with no new services. She will follow up with her PCP and plan of care and transport with family. A resumption of Lacie's home TPN has been coordinated by CM with [facility]. Her Christelle will administer it, as in the past. The TPN solution will be delivered tomorrow for infusion on Saturday. Patient/Family Education Needs: review of discharge instructions, activity, limitations, follow up plan discuss Ask Me Three' Services Needed at Discharge: Infusion Therapy
[2023-01-11] MEDS: Normal Saline Flush 10 ML SYR IVP (14:46)
[2023-01-11 16:09] VITALS: BP 116/76; PULSE 66; RESP 18; TEMP 37.1; O2SAT 96
[2023-01-12 11:54] LABS: Selenium, Serum 111 mcg/L (110-165)
[2023-01-14 09:26] LABS: Prealbumin 23 mg/dL (20-40)
[2023-01-14 13:25] LABS: Zinc, S 63 mcg/dL (60-106)
[2023-01-15 11:53] LABS: Manganese, Serum 1.7 ng/mL (0.5-1.2)
== END 2023-01-11 16:55 | disposition home or self-care (01) | DRG 315 ==
LOC: ER 07:50 → MS 10:29
PROVIDERS: Nurse Practitioner Acute Care; Nurse Practitioner Family; Surgery; Admitting Provider Family Medicine; Emergency Provider Emergency Medicine; PCP Family Medicine; Visit Provider Family Medicine
PROC: 02HV33Z Insertion of Infusion Device into Superior Vena Cava, Percutaneous Approach (ICD-10-PCS; CPT 36558; principal; 2023-01-10 13:30)
DX: T82.7XXA Infection and inflammatory reaction due to other cardiac and vascular devices, implants and grafts, initial encounter (principal); E87.1 Hypo-osmolality and hyponatremia; K91.2 Postsurgical malabsorption, not elsewhere classified; R78.81 Bacteremia; N17.9 Acute kidney failure, unspecified; K86.1 Other chronic pancreatitis; I82.611 Acute embolism and thrombosis of superficial veins of right upper extremity; E03.8 Other specified hypothyroidism; J45.909 Unspecified asthma, uncomplicated; E88.09 Other disorders of plasma-protein metabolism, not elsewhere classified; E83.51 Hypocalcemia; R73.9 Hyperglycemia, unspecified; D72.829 Elevated white blood cell count, unspecified; E83.42 Hypomagnesemia; F12.90 Cannabis use, unspecified, uncomplicated; I95.9 Hypotension, unspecified; D64.9 Anemia, unspecified; B96.89 Other specified bacterial agents as the cause of diseases classified elsewhere; Z90.49 Acquired absence of other specified parts of digestive tract; Z86.718 Personal history of other venous thrombosis and embolism
CPT/HCPCS: 36589; 36558; 00123; 36410; 36415; 71045; 74177; 77001; 80048; 80053; 82525; 82805; 84630; 85027; 87040; 96365; 96366; 96367; 96376; 99285; 71260; 83605; 83735; 83785; 84100; 84134; 84255; 84478; 85025; 86140; 87070; 93971; 99223; 99232; 99233; 99238; J0131; J1644; J1885; J2250; J3010; Q9967

== ENCOUNTER 2023-01-16 11:00 | Outpatient (RCR) | payer BC, SELFPAY ==
[2022-12-28] MEDS: Normal Saline Flush 10 ML SYR IVP (08:39)
[2022-12-28 08:45] LABS: Abs Immature Grans 0.01 10^3/uL (0.0-0.06); Absolute Basophil Count 0.13 10^3/uL (0.0-0.2); Absolute Eosinophil Count 0.32 10^3/uL (0.0-0.7); Absolute Lymphocyte Count 2.12 10^3/uL (1.2-3.4); Absolute Monocyte Count 0.59 10^3/uL (0.1-0.8); Absolute Neutrophil Count 2.65 10^3/uL (1.2-6.7); Basophils % 2.2; Eosinophils % 5.5; HCT 36.8 % (36.0-46.0); HGB 12.3 g/dL (11.2-15.7); Immature Grans % 0.2; Lymphocytes % 36.4; MCH 31.1 pg (27.0-33.0); MCHC 33.4 % (32.0-36.0); MCV 93 fL (80-95); MPV 10.9 fL (8.0-11.0); Monocytes % 10.1; Neutrophils % 45.6; Platelet Count 204 10^3/uL (130-400); RBC 3.96 10^6/uL (3.93-5.22); RDW 13.3 % (11.7-14.6); RDW-SD 45.5 fL; WBC 5.82 10^3/uL (4.4-10.8)
[2022-12-28 09:18] LABS: ALT 62 U/L (14-59); AST 32 U/L (15-37); Alkaline Phosphatase 194 U/L (46-116); Anion Gap 7.8 mmol/L (3-11); BUN 22 mg/dL (7-18); Bilirubin, Total 0.4 mg/dL (0.2-1.0); CO2 25.2 mmol/L (21.0-32.0); CREATININE 0.6 mg/dL (0.55-1.02); Calcium 8.8 mg/dL (8.5-10.1); Chloride 101 mmol/L (98-107); Estimated GFR 105.28 (mL/min/1.73m2); Glucose 112 mg/dL (74-106); PHOSPHORUS 3.8 mg/dL (2.6-4.7); Potassium 4.4 mmol/L (3.5-5.1); Sodium 134 mmol/L (136-145); Total Protein 7.2 g/dL (6.4-8.2)
[2022-12-28 09:34] LABS: Triglyceride 52 mg/dL (<150)
[2022-12-31 10:35] LABS: Prealbumin 18 mg/dL (20-40)
== END 2023-01-22 23:59 | disposition home or self-care (01) ==
LOC: INF 11:00
PROVIDERS: PCP Family Medicine; Visit Provider Internal Medicine Gastroenterology
DX: Z78.9 Other specified health status (principal); D63.8 Anemia in other chronic diseases classified elsewhere; E78.5 Hyperlipidemia, unspecified; K91.2 Postsurgical malabsorption, not elsewhere classified; E03.9 Hypothyroidism, unspecified
CPT/HCPCS: 36592; 80053; 83735; 84100; 84134; 84478; 85025; 86140

== ENCOUNTER 2023-02-20 02:57 | Outpatient (RCR) | payer BC, SELFPAY ==
[2023-01-23] MEDS: Normal Saline Flush 10 ML SYR IVP (08:35)
[2023-01-23 08:46] LABS: Abs Immature Grans 0.01 10^3/uL (0.0-0.06); Absolute Basophil Count 0.21 10^3/uL (0.0-0.2); Absolute Eosinophil Count 0.41 10^3/uL (0.0-0.7); Absolute Lymphocyte Count 2.28 10^3/uL (1.2-3.4); Absolute Monocyte Count 0.46 10^3/uL (0.1-0.8); Absolute Neutrophil Count 1.25 10^3/uL (1.2-6.7); Basophils % 4.5; Eosinophils % 8.9; HCT 36.6 % (36.0-46.0); Immature Grans % 0.2; Lymphocytes % 49.4; MCH 30.6 pg (27.0-33.0); MCHC 32.8 % (32.0-36.0); MCV 93 fL (80-95); MPV 10.8 fL (8.0-11.0); Platelet Count 251 10^3/uL (130-400); RBC 3.92 10^6/uL (3.93-5.22); RDW 13.2 % (11.7-14.6); RDW-SD 45.4 fL; WBC 4.62 10^3/uL (4.4-10.8)
[2023-01-23 09:38] LABS: ALT 73 U/L (14-59); AST 40 U/L (15-37); Alkaline Phosphatase 218 U/L (46-116); Anion Gap 9.3 mmol/L (3-11); BUN 22 mg/dL (7-18); Bilirubin, Total 0.3 mg/dL (0.2-1.0); CO2 24.7 mmol/L (21.0-32.0); CREATININE 0.7 mg/dL (0.55-1.02); Calcium 8.8 mg/dL (8.5-10.1); Chloride 103 mmol/L (98-107); Estimated GFR 101.44 (mL/min/1.73m2); Glucose 104 mg/dL (74-106); Magnesium 1.9 mg/dL (1.8-2.4); PHOSPHORUS 4.1 mg/dL (2.6-4.7); Potassium 4.4 mmol/L (3.5-5.1); Sodium 137 mmol/L (136-145); Total Protein 7.1 g/dL (6.4-8.2)
[2023-01-23 09:40] LABS: Triglyceride 52 mg/dL (<150)
[2023-01-23 09:46] LABS: C-Reactive Protein < 0.05 mg/dL (0.0-0.3)
[2023-01-24 08:58] LABS: Prealbumin 22 mg/dL (20-40)
[2023-01-30] MEDS: IRON SUCROSE COMPLEX 200 MG in Normal Saline 100 ML 440 MG IVPB (08:58)
[2023-01-30] MEDS: Normal Saline Flush 10 ML SYR IVP (08:58)
[2023-02-06] MEDS: Normal Saline Flush 10 ML SYR IVP (07:57)
[2023-02-06 08:38] LABS: Abs Immature Grans 0.01 10^3/uL (0.0-0.06); Absolute Basophil Count 0.13 10^3/uL (0.0-0.2); Absolute Lymphocyte Count 2.62 10^3/uL (1.2-3.4); Absolute Monocyte Count 0.63 10^3/uL (0.1-0.8); Absolute Neutrophil Count 2.52 10^3/uL (1.2-6.7); Basophils % 2.1; Eosinophils % 6.3; HCT 34.4 % (36.0-46.0); HGB 11.5 g/dL (11.2-15.7); Immature Grans % 0.2; Lymphocytes % 41.5; MCH 30.5 pg (27.0-33.0); MCHC 33.4 % (32.0-36.0); MCV 91 fL (80-95); MPV 11.3 fL (8.0-11.0); Neutrophils % 39.9; Platelet Count 213 10^3/uL (130-400); RBC 3.77 10^6/uL (3.93-5.22); RDW 13.4 % (11.7-14.6); RDW-SD 45.4 fL; WBC 6.31 10^3/uL (4.4-10.8)
[2023-02-06 09:04] LABS: ALT 81 U/L (14-59); AST 44 U/L (15-37); Albumin 2.9 g/dL (3.4-5.0); Alkaline Phosphatase 182 U/L (46-116); Anion Gap 8.5 mmol/L (3-11); BUN 20 mg/dL (7-18); Bilirubin, Total 0.3 mg/dL (0.2-1.0); C-Reactive Protein 0.08 mg/dL (0.0-0.3); CO2 23.5 mmol/L (21.0-32.0); CREATININE 0.5 mg/dL (0.55-1.02); Calcium 8.7 mg/dL (8.5-10.1); Chloride 103 mmol/L (98-107); Estimated GFR 110.01 (mL/min/1.73m2); Glucose 99 mg/dL (74-106); Magnesium 1.9 mg/dL (1.8-2.4); PHOSPHORUS 3.7 mg/dL (2.6-4.7); Potassium 4.5 mmol/L (3.5-5.1); Sodium 135 mmol/L (136-145)
[2023-02-06 09:18] LABS: Triglyceride 59 mg/dL (<150)
[2023-02-07 09:31] LABS: Prealbumin 20 mg/dL (20-40)
[2023-02-13] MEDS: Normal Saline Flush 10 ML SYR IVP (08:07)
[2023-02-20] MEDS: Normal Saline Flush 10 ML SYR IVP (08:14)
[2023-02-20 09:00] LABS: Abs Immature Grans 0.01 10^3/uL (0.0-0.06); Absolute Eosinophil Count 0.39 10^3/uL (0.0-0.7); Absolute Lymphocyte Count 1.94 10^3/uL (1.2-3.4); Absolute Monocyte Count 0.49 10^3/uL (0.1-0.8); Absolute Neutrophil Count 2.33 10^3/uL (1.2-6.7); Basophils % 1.9; Eosinophils % 7.4; HCT 35.1 % (36.0-46.0); Immature Grans % 0.2; Lymphocytes % 36.9; MCH 31.4 pg (27.0-33.0); MCHC 34.2 % (32.0-36.0); MCV 92 fL (80-95); Monocytes % 9.3; Neutrophils % 44.3; Platelet Count 242 10^3/uL (130-400); RBC 3.82 10^6/uL (3.93-5.22); RDW 13.3 % (11.7-14.6); RDW-SD 45.1 fL; WBC 5.26 10^3/uL (4.4-10.8)
[2023-02-20 09:19] LABS: ALT 87 U/L (14-59); AST 33 U/L (15-37); Albumin 2.9 g/dL (3.4-5.0); Alkaline Phosphatase 175 U/L (46-116); Anion Gap 8.9 mmol/L (3-11); BUN 19 mg/dL (7-18); Bilirubin, Total 0.4 mg/dL (0.2-1.0); CO2 26.1 mmol/L (21.0-32.0); CREATININE 0.6 mg/dL (0.55-1.02); Calcium 8.6 mg/dL (8.5-10.1); Chloride 104 mmol/L (98-107); Estimated GFR 105.28 (mL/min/1.73m2); Glucose 104 mg/dL (74-106); Magnesium 2.1 mg/dL (1.8-2.4); PHOSPHORUS 3.4 mg/dL (2.6-4.7); Potassium 4.3 mmol/L (3.5-5.1); Sodium 139 mmol/L (136-145); Total Protein 7.1 g/dL (6.4-8.2)
[2023-02-20 09:33] LABS: Triglyceride 60 mg/dL (<150)
[2023-02-22 09:07] LABS: Prealbumin 18 mg/dL (20-40)
== END 2023-02-21 23:59 | disposition home or self-care (01) ==
LOC: INF 02:57
PROVIDERS: PCP Family Medicine; Visit Provider Internal Medicine Gastroenterology
DX: Z78.9 Other specified health status (principal); D50.9 Iron deficiency anemia, unspecified
CPT/HCPCS: 36592; 80053; 96365; 83735; 84100; 84134; 84478; 85025; 86140; J1756

== ENCOUNTER 2023-03-20 01:09 | Outpatient (RCR) | payer BC, SELFPAY ==
[2023-02-27] MEDS: Normal Saline Flush 10 ML SYR IVP (08:03)
[2023-03-06] MEDS: Normal Saline Flush 10 ML SYR IVP (09:58)
[2023-03-06 10:03] LABS: Absolute Basophil Count 0.14 10^3/uL (0.0-0.2); Absolute Lymphocyte Count 1.82 10^3/uL (1.2-3.4); Absolute Monocyte Count 0.46 10^3/uL (0.1-0.8); Absolute Neutrophil Count 1.57 10^3/uL (1.2-6.7); Basophils % 3.2; Eosinophils % 9.1; HCT 35.2 % (36.0-46.0); HGB 11.6 g/dL (11.2-15.7); Lymphocytes % 41.5; MCH 29.9 pg (27.0-33.0); MCV 91 fL (80-95); MPV 10.8 fL (8.0-11.0); Monocytes % 10.5; Neutrophils % 35.7; Platelet Count 236 10^3/uL (130-400); RBC 3.88 10^6/uL (3.93-5.22); RDW 13.3 % (11.7-14.6); RDW-SD 44.8 fL; WBC 4.39 10^3/uL (4.4-10.8)
[2023-03-06 10:34] LABS: ALT 57 U/L (14-59); AST 24 U/L (15-37); Albumin 2.9 g/dL (3.4-5.0); Alkaline Phosphatase 175 U/L (46-116); Anion Gap 7.6 mmol/L (3-11); BUN 18 mg/dL (7-18); Bilirubin, Total 0.4 mg/dL (0.2-1.0); CO2 28.4 mmol/L (21.0-32.0); CREATININE 0.6 mg/dL (0.55-1.02); Calcium 8.6 mg/dL (8.5-10.1); Chloride 102 mmol/L (98-107); Estimated GFR 105.28 (mL/min/1.73m2); Glucose 106 mg/dL (74-106); PHOSPHORUS 3.5 mg/dL (2.6-4.7); Potassium 4.4 mmol/L (3.5-5.1); Sodium 138 mmol/L (136-145); Triglyceride 46 mg/dL (<150)
[2023-03-06 10:43] LABS: C-Reactive Protein 0.12 mg/dL (0.0-0.3)
[2023-03-07 10:07] LABS: Prealbumin 17 mg/dL (20-40)
[2023-03-13] MEDS: Normal Saline Flush 10 ML SYR IVP (08:26)
[2023-03-13] MEDS: IRON SUCROSE COMPLEX 200 MG in Normal Saline 100 ML 440 MG IVPB (08:26)
[2023-03-20 09:10] LABS: Abs Immature Grans 0.01 10^3/uL (0.0-0.06); Absolute Basophil Count 0.12 10^3/uL (0.0-0.2); Absolute Eosinophil Count 0.41 10^3/uL (0.0-0.7); Absolute Lymphocyte Count 1.69 10^3/uL (1.2-3.4); Absolute Monocyte Count 0.54 10^3/uL (0.1-0.8); Absolute Neutrophil Count 2.56 10^3/uL (1.2-6.7); Basophils % 2.3; Eosinophils % 7.7; HCT 35.1 % (36.0-46.0); HGB 11.6 g/dL (11.2-15.7); Immature Grans % 0.2; Lymphocytes % 31.7; MCH 30.1 pg (27.0-33.0); MCV 91 fL (80-95); MPV 10.7 fL (8.0-11.0); Monocytes % 10.1; Platelet Count 237 10^3/uL (130-400); RBC 3.85 10^6/uL (3.93-5.22); RDW 13.2 % (11.7-14.6); RDW-SD 43.6 fL; WBC 5.33 10^3/uL (4.4-10.8)
[2023-03-20 09:36] LABS: ALT 107 U/L (14-59); AST 55 U/L (15-37); Albumin 2.9 g/dL (3.4-5.0); Alkaline Phosphatase 182 U/L (46-116); Anion Gap 7.1 mmol/L (3-11); BUN 21 mg/dL (7-18); Bilirubin, Total 0.4 mg/dL (0.2-1.0); C-Reactive Protein 0.09 mg/dL (0.0-0.3); CO2 27.9 mmol/L (21.0-32.0); CREATININE 0.5 mg/dL (0.55-1.02); Calcium 8.5 mg/dL (8.5-10.1); Chloride 103 mmol/L (98-107); Estimated GFR 110.01 (mL/min/1.73m2); Glucose 104 mg/dL (74-106); PHOSPHORUS 3.8 mg/dL (2.6-4.7); Potassium 4.4 mmol/L (3.5-5.1); Sodium 138 mmol/L (136-145)
[2023-03-20 09:53] LABS: Triglyceride 51 mg/dL (<150)
[2023-03-20] MEDS: Normal Saline Flush 10 ML SYR IVP (10:16)
[2023-03-21 08:44] LABS: Prealbumin 17 mg/dL (20-40)
== END 2023-03-24 23:59 | disposition home or self-care (01) ==
LOC: INF 01:09
PROVIDERS: PCP Family Medicine; Visit Provider Internal Medicine Gastroenterology
DX: Z78.9 Other specified health status (principal)
CPT/HCPCS: 36592; 80053; 96365; 83735; 84100; 84134; 84478; 85025; 86140; J1756

== ENCOUNTER 2023-04-24 03:20 | Outpatient (RCR) | payer BC, SELFPAY ==
[2023-03-27] MEDS: Normal Saline Flush 10 ML SYR IVP (08:51)
[2023-04-03] MEDS: Normal Saline Flush 10 ML SYR IVP (08:08)
[2023-04-03 08:40] LABS: Abs Immature Grans 0.01 10^3/uL (0.0-0.06); Absolute Basophil Count 0.14 10^3/uL (0.0-0.2); Absolute Eosinophil Count 0.44 10^3/uL (0.0-0.7); Absolute Lymphocyte Count 2.13 10^3/uL (1.2-3.4); Absolute Monocyte Count 0.48 10^3/uL (0.1-0.8); Absolute Neutrophil Count 2.26 10^3/uL (1.2-6.7); Basophils % 2.6; Eosinophils % 8.1; HCT 34.8 % (36.0-46.0); HGB 11.7 g/dL (11.2-15.7); Immature Grans % 0.2; MCH 30.4 pg (27.0-33.0); MCHC 33.6 % (32.0-36.0); MCV 90 fL (80-95); MPV 10.5 fL (8.0-11.0); Monocytes % 8.8; Neutrophils % 41.3; Platelet Count 245 10^3/uL (130-400); RBC 3.85 10^6/uL (3.93-5.22); RDW 13.9 % (11.7-14.6); RDW-SD 46.2 fL; WBC 5.46 10^3/uL (4.4-10.8)
[2023-04-03 08:56] LABS: ALT 96 U/L (14-59); AST 37 U/L (15-37); Alkaline Phosphatase 184 U/L (46-116); Anion Gap 8.5 mmol/L (3-11); BUN 14 mg/dL (7-18); Bilirubin, Total 0.5 mg/dL (0.2-1.0); C-Reactive Protein 0.14 mg/dL (0.0-0.3); CO2 25.5 mmol/L (21.0-32.0); CREATININE 0.6 mg/dL (0.55-1.02); Calcium 8.7 mg/dL (8.5-10.1); Chloride 105 mmol/L (98-107); Estimated GFR 105.28 (mL/min/1.73m2); Glucose 101 mg/dL (74-106); Magnesium 1.9 mg/dL (1.8-2.4); PHOSPHORUS 3.3 mg/dL (2.6-4.7); Potassium 3.8 mmol/L (3.5-5.1); Sodium 139 mmol/L (136-145); Total Protein 6.9 g/dL (6.4-8.2)
[2023-04-03 09:16] LABS: Triglyceride 49 mg/dL (<150)
[2023-04-04 10:19] LABS: Prealbumin 16 mg/dL (20-40)
[2023-04-10] MEDS: Normal Saline Flush 10 ML SYR IVP (08:10)
[2023-04-10] MEDS: IRON SUCROSE COMPLEX 200 MG in Normal Saline 100 ML 440 MG IVPB (08:45)
[2023-04-17] MEDS: Normal Saline Flush 10 ML SYR IVP (08:39)
[2023-04-17 08:48] LABS: Abs Immature Grans 0.01 10^3/uL (0.0-0.06); Absolute Basophil Count 0.09 10^3/uL (0.0-0.2); Absolute Eosinophil Count 0.31 10^3/uL (0.0-0.7); Absolute Lymphocyte Count 1.77 10^3/uL (1.2-3.4); Absolute Monocyte Count 0.41 10^3/uL (0.1-0.8); Absolute Neutrophil Count 1.72 10^3/uL (1.2-6.7); Basophils % 2.1; Eosinophils % 7.2; HCT 34.8 % (36.0-46.0); HGB 11.6 g/dL (11.2-15.7); Immature Grans % 0.2; Lymphocytes % 41.1; MCH 30.2 pg (27.0-33.0); MCHC 33.3 % (32.0-36.0); MCV 91 fL (80-95); MPV 10.6 fL (8.0-11.0); Monocytes % 9.5; Neutrophils % 39.9; Platelet Count 228 10^3/uL (130-400); RBC 3.84 10^6/uL (3.93-5.22); RDW-SD 46.8 fL; WBC 4.31 10^3/uL (4.4-10.8)
[2023-04-17 09:01] LABS: ALT 57 U/L (14-59); AST 26 U/L (15-37); Alkaline Phosphatase 156 U/L (46-116); Anion Gap 9.3 mmol/L (3-11); BUN 19 mg/dL (7-18); Bilirubin, Total 0.3 mg/dL (0.2-1.0); C-Reactive Protein 0.14 mg/dL (0.0-0.3); CO2 26.7 mmol/L (21.0-32.0); CREATININE 0.5 mg/dL (0.55-1.02); Calcium 8.8 mg/dL (8.5-10.1); Chloride 103 mmol/L (98-107); Estimated GFR 110.01 (mL/min/1.73m2); Glucose 97 mg/dL (74-106); Magnesium 1.9 mg/dL (1.8-2.4); PHOSPHORUS 3.8 mg/dL (2.6-4.7); Potassium 4.4 mmol/L (3.5-5.1); Sodium 139 mmol/L (136-145)
[2023-04-17 09:15] LABS: Triglyceride 48 mg/dL (<150)
[2023-04-18 09:35] LABS: Prealbumin 20 mg/dL (20-40)
[2023-04-24] MEDS: Normal Saline Flush 10 ML SYR IVP (09:49)
== END 2023-04-24 23:59 | disposition home or self-care (01) ==
LOC: INF 03:20
PROVIDERS: PCP Family Medicine; Visit Provider Internal Medicine Gastroenterology
DX: Z78.9 Other specified health status (principal); D50.9 Iron deficiency anemia, unspecified
CPT/HCPCS: 36591; 36592; 80053; 96365; 83735; 84100; 84134; 84478; 85025; 86140; J1756

== ENCOUNTER → 2023-05-07 10:20 | Outpatient (CLI) | payer BC, SELFPAY ==
--- NOTE | 2023-05-07 | DI.RAD_ITS ---
Exam(s) XR CHEST 2V PA LATERAL EXAM: XR CHEST 2V PA LATERAL CLINICAL HISTORY: CENTRAL LINE PLACED FOR TPN,Z45.2,Z78.0,CHECK TUNNELED LINE POSITION TECHNIQUE: 2D digital imaging was performed of the chest. Two images were obtained. PA and lateral views were obtained. COMPARISON: CR,XR XR CHEST 2V PA LATERAL from 01/03/2023 CR XR PORTABLE CHEST AP POST LINE from 01/11/2023 FINDINGS: MEDIASTINUM: Normal. HEART: Normal. PULMONARY VASCULATURE: Normal. LUNGS: There is atelectasis in the left lung base. No focal consolidating infiltrates are seen. PLEURAL SPACE: No pleural effusion or pneumothorax. BONE:Within normal limits for the patient's age. OTHER FINDINGS:There is again seen a left subclavian central venous catheter. The tip is unchanged i n position in the superior vena cava. IMPRESSION: 1. No acute pulmonary findings. 2. Stable position of the left subclavian central venous catheter. DATA REPOSITORY: RADIATION DOSE DELIVERED:
== END ==
PROVIDERS: PCP Nurse Practitioner Family; Visit Provider Internal Medicine Gastroenterology
DX: Z78.9 Other specified health status (principal); Z45.2 Encounter for adjustment and management of vascular access device
CPT/HCPCS: 71046

== ENCOUNTER 2023-05-22 02:34 | Outpatient (RCR) | payer BC, SELFPAY ==
[2023-05-01 09:11] LABS: Absolute Basophil Count 0.12 10^3/uL (0.0-0.2); Absolute Eosinophil Count 0.42 10^3/uL (0.0-0.7); Absolute Lymphocyte Count 1.86 10^3/uL (1.2-3.4); Absolute Monocyte Count 0.42 10^3/uL (0.1-0.8); Absolute Neutrophil Count 1.99 10^3/uL (1.2-6.7); Basophils % 2.5; Eosinophils % 8.7; HCT 35.7 % (36.0-46.0); HGB 11.8 g/dL (11.2-15.7); Lymphocytes % 38.7; MCHC 33.1 % (32.0-36.0); MCV 91 fL (80-95); MPV 10.7 fL (8.0-11.0); Monocytes % 8.7; Neutrophils % 41.4; Platelet Count 251 10^3/uL (130-400); RBC 3.93 10^6/uL (3.93-5.22); RDW 13.6 % (11.7-14.6); RDW-SD 45.9 fL; WBC 4.81 10^3/uL (4.4-10.8)
[2023-05-01 09:28] LABS: ALT 64 U/L (14-59); AST 28 U/L (15-37); Alkaline Phosphatase 155 U/L (46-116); Anion Gap 8.9 mmol/L (3-11); BUN 16 mg/dL (7-18); Bilirubin, Total 0.4 mg/dL (0.2-1.0); CO2 26.1 mmol/L (21.0-32.0); CREATININE 0.6 mg/dL (0.55-1.02); Calcium 8.6 mg/dL (8.5-10.1); Chloride 103 mmol/L (98-107); Estimated GFR 105.28 (mL/min/1.73m2); Glucose 93 mg/dL (74-106); Magnesium 1.9 mg/dL (1.8-2.4); PHOSPHORUS 3.5 mg/dL (2.6-4.7); Potassium 4.2 mmol/L (3.5-5.1); Sodium 138 mmol/L (136-145); Total Protein 7.1 g/dL (6.4-8.2)
[2023-05-01 09:29] LABS: C-Reactive Protein < 0.50 mg/dL (<or=0.5)
[2023-05-01] MEDS: Normal Saline Flush 10 ML SYR IVP (09:38)
[2023-05-01 13:37] LABS: Triglyceride 74 mg/dL (<150)
[2023-05-07] MEDS: Normal Saline Flush 10 ML SYR IVP (09:45)
[2023-05-07 11:34] LABS: Prealbumin 18 mg/dL (20-40)
[2023-05-15 08:29] LABS: Abs Immature Grans 0.01 10^3/uL (0.0-0.06); Absolute Basophil Count 0.12 10^3/uL (0.0-0.2); Absolute Eosinophil Count 0.49 10^3/uL (0.0-0.7); Absolute Lymphocyte Count 1.94 10^3/uL (1.2-3.4); Absolute Monocyte Count 0.58 10^3/uL (0.1-0.8); Absolute Neutrophil Count 2.63 10^3/uL (1.2-6.7); Basophils % 2.1; Eosinophils % 8.5; HCT 37.5 % (36.0-46.0); HGB 11.9 g/dL (11.2-15.7); Immature Grans % 0.2; Lymphocytes % 33.6; MCH 29.2 pg (27.0-33.0); MCHC 31.7 % (32.0-36.0); MCV 92 fL (80-95); MPV 10.3 fL (8.0-11.0); Monocytes % 10.1; Neutrophils % 45.5; Platelet Count 253 10^3/uL (130-400); RBC 4.08 10^6/uL (3.93-5.22); RDW 13.5 % (11.7-14.6); RDW-SD 45.7 fL; WBC 5.77 10^3/uL (4.4-10.8)
[2023-05-15] MEDS: Normal Saline Flush 10 ML SYR IVP (08:43)
[2023-05-15] MEDS: IRON SUCROSE COMPLEX 200 MG in Normal Saline 100 ML 440 MG IVPB (08:43)
[2023-05-15 08:53] LABS: ALT 88 U/L (14-59); AST 50 U/L (15-37); Albumin 3.1 g/dL (3.4-5.0); Alkaline Phosphatase 167 U/L (46-116); Anion Gap 10.8 mmol/L (3-11); BUN 18 mg/dL (7-18); Bilirubin, Total 0.2 mg/dL (0.2-1.0); CO2 20.2 mmol/L (21.0-32.0); CREATININE 0.6 mg/dL (0.55-1.02); Calcium 8.6 mg/dL (8.5-10.1); Chloride 108 mmol/L (98-107); Estimated GFR 105.28 (mL/min/1.73m2); Glucose 102 mg/dL (74-106); Magnesium 1.7 mg/dL (1.8-2.4); PHOSPHORUS 3.9 mg/dL (2.6-4.7); Potassium 4.5 mmol/L (3.5-5.1); Sodium 139 mmol/L (136-145); Total Protein 7.4 g/dL (6.4-8.2)
[2023-05-15 08:56] LABS: C-Reactive Protein < 0.50 mg/dL (<or=0.5)
[2023-05-15 09:21] LABS: Triglyceride 51 mg/dL (<150)
[2023-05-16 09:45] LABS: Prealbumin 20 mg/dL (20-40)
[2023-05-22] MEDS: Normal Saline Flush 10 ML SYR IVP (08:25)
== END 2023-05-23 23:59 | disposition home or self-care (01) ==
LOC: INF 02:34
PROVIDERS: PCP Nurse Practitioner Family; Visit Provider Internal Medicine Gastroenterology
DX: Z78.9 Other specified health status (principal)
CPT/HCPCS: 36591; 36592; 80053; 96365; 83735; 84100; 84134; 84478; 85025; 86140; J1756

== ENCOUNTER 2023-06-19 04:31 | Outpatient (RCR) | payer BC, SELFPAY ==
[2023-05-29] MEDS: Normal Saline Flush 10 ML SYR IVP (08:04)
[2023-05-29 08:24] LABS: Abs Immature Grans 0.01 10^3/uL (0.0-0.06); Absolute Basophil Count 0.13 10^3/uL (0.0-0.2); Absolute Eosinophil Count 0.43 10^3/uL (0.0-0.7); Absolute Monocyte Count 0.52 10^3/uL (0.1-0.8); Absolute Neutrophil Count 1.45 10^3/uL (1.2-6.7); Basophils % 2.9; Eosinophils % 9.7; HCT 34.5 % (36.0-46.0); HGB 11.5 g/dL (11.2-15.7); Immature Grans % 0.2; Lymphocytes % 42.8; MCH 30.1 pg (27.0-33.0); MCHC 33.3 % (32.0-36.0); MCV 90 fL (80-95); MPV 10.9 fL (8.0-11.0); Monocytes % 11.7; Neutrophils % 32.7; Platelet Count 224 10^3/uL (130-400); RBC 3.82 10^6/uL (3.93-5.22); RDW 14.2 % (11.7-14.6); RDW-SD 46.9 fL; WBC 4.44 10^3/uL (4.4-10.8)
[2023-05-29 08:48] LABS: TSH (W/Ref FT4) 7.23 uIU/mL (0.36-3.74)
[2023-05-29 08:51] LABS: ALT 56 U/L (14-59); AST 25 U/L (15-37); Alkaline Phosphatase 158 U/L (46-116); Anion Gap 9.6 mmol/L (3-11); BUN 22 mg/dL (7-18); Bilirubin, Total 0.3 mg/dL (0.2-1.0); CO2 27.4 mmol/L (21.0-32.0); CREATININE 0.6 mg/dL (0.55-1.02); Calcium 8.9 mg/dL (8.5-10.1); Chloride 103 mmol/L (98-107); Estimated GFR 105.28 (mL/min/1.73m2); Glucose 94 mg/dL (74-106); Magnesium 1.9 mg/dL (1.8-2.4); Potassium 4.3 mmol/L (3.5-5.1); Sodium 140 mmol/L (136-145); Total Protein 6.9 g/dL (6.4-8.2); Triglyceride 61 mg/dL (<150)
[2023-05-29 09:07] LABS: FREE T4 1.01 ng/dL (0.76-1.46)
[2023-05-29 09:24] LABS: PHOSPHORUS 3.5 mg/dL (2.6-4.7)
[2023-05-29 09:26] LABS: C-Reactive Protein < 0.50 mg/dL (<or=0.5)
[2023-05-30 11:02] LABS: Prealbumin 19 mg/dL (20-40)
[2023-06-05] MEDS: Normal Saline Flush 10 ML SYR IVP (08:10)
[2023-06-05] MEDS: IRON SUCROSE COMPLEX 200 MG in Normal Saline 100 ML 440 MG IVPB (08:10)
[2023-06-12] MEDS: Normal Saline Flush 10 ML SYR IVP (09:55)
[2023-06-12 10:08] LABS: Abs Immature Grans 0.01 10^3/uL (0.0-0.06); Absolute Basophil Count 0.11 10^3/uL (0.0-0.2); Absolute Lymphocyte Count 1.64 10^3/uL (1.2-3.4); Absolute Neutrophil Count 2.29 10^3/uL (1.2-6.7); Basophils % 2.2; Eosinophils % 8.1; HCT 33.6 % (36.0-46.0); HGB 11.1 g/dL (11.2-15.7); Immature Grans % 0.2; Lymphocytes % 33.1; MCV 91 fL (80-95); MPV 10.2 fL (8.0-11.0); Monocytes % 10.1; Neutrophils % 46.3; Platelet Count 234 10^3/uL (130-400); RDW 14.2 % (11.7-14.6); RDW-SD 47.2 fL; WBC 4.95 10^3/uL (4.4-10.8)
[2023-06-12 10:38] LABS: ALT 45 U/L (14-59); AST 23 U/L (15-37); Albumin 3.1 g/dL (3.4-5.0); Alkaline Phosphatase 154 U/L (46-116); Anion Gap 10.5 mmol/L (3-11); BUN 15 mg/dL (7-18); Bilirubin, Total 0.3 mg/dL (0.2-1.0); CO2 23.5 mmol/L (21.0-32.0); CREATININE 0.6 mg/dL (0.55-1.02); Calcium 8.4 mg/dL (8.5-10.1); Chloride 108 mmol/L (98-107); Estimated GFR 105.28 (mL/min/1.73m2); Glucose 90 mg/dL (74-106); Magnesium 1.8 mg/dL (1.8-2.4); PHOSPHORUS 2.9 mg/dL (2.6-4.7); Potassium 4.1 mmol/L (3.5-5.1); Sodium 142 mmol/L (136-145); Total Protein 6.9 g/dL (6.4-8.2)
[2023-06-12 10:39] LABS: C-Reactive Protein < 0.50 mg/dL (<or=0.5)
[2023-06-12 10:57] LABS: Triglyceride 67 mg/dL (<150)
[2023-06-13 08:37] LABS: Prealbumin 17 mg/dL (20-40)
[2023-06-19] MEDS: Normal Saline Flush 10 ML SYR IVP (10:00)
== END 2023-06-23 23:59 | disposition home or self-care (01) ==
LOC: INF 04:31
PROVIDERS: PCP Nurse Practitioner Family; Visit Provider Internal Medicine Gastroenterology
DX: Z78.9 Other specified health status (principal); E03.9 Hypothyroidism, unspecified
CPT/HCPCS: 36592; 80053; 96365; 83735; 84100; 84134; 84439; 84443; 84478; 85025; 86140; J1756

== ENCOUNTER 2023-07-03 09:58 | Outpatient (REF) | payer BC, SELFPAY ==
[2023-07-03 12:36] LABS: Bilirubin Negative (Negative); Blood Trace-intact (Negative); Clarity Clear (Clear); Glucose Negative (Negative); Ketones Negative (Negative); Leukocyte Esterase Trace (Negative); Nitrite Negative (Negative); Specific Gravity 1.025 (1.005-1.025); Urobilinogen 0.2 mg/dL (Up to 0.2); pH 5.5 (5-8)
[2023-07-03 12:58] LABS: Bacteria Moderate HPF (Negative); Epithelial Cells Few HPF (Negative); RBC 0-2 HPF (0-2); WBC 20-50 HPF (0-5)
[2023-07-03 12:59] LABS: C & S Indicated? Yes; Casts Negative LPF (Negative); Crystals Few Calcium Oxalate HPF (Negative); Mucus Negative (Negative)
== END 2023-07-03 09:59 | disposition home or self-care (01) ==
LOC: LBN 09:58
PROVIDERS: PCP Nurse Practitioner Family; Visit Provider Nurse Practitioner Family
DX: R39.89 Other symptoms and signs involving the genitourinary system (principal); N39.0 Urinary tract infection, site not specified
CPT/HCPCS: 87077; 81003; 81015; 87086; 87186

== ENCOUNTER 2023-07-17 04:49 | Outpatient (RCR) | payer BC, SELFPAY ==
[2023-06-26] MEDS: Normal Saline Flush 10 ML SYR IVP (07:45)
[2023-06-26 08:40] LABS: Abs Immature Grans 0.01 10^3/uL (0.0-0.06); Absolute Basophil Count 0.13 10^3/uL (0.0-0.2); Absolute Eosinophil Count 0.35 10^3/uL (0.0-0.7); Absolute Lymphocyte Count 1.77 10^3/uL (1.2-3.4); Absolute Monocyte Count 0.52 10^3/uL (0.1-0.8); Absolute Neutrophil Count 2.22 10^3/uL (1.2-6.7); Basophils % 2.6; HCT 34.2 % (36.0-46.0); HGB 10.9 g/dL (11.2-15.7); Immature Grans % 0.2; Lymphocytes % 35.4; MCH 29.4 pg (27.0-33.0); MCHC 31.9 % (32.0-36.0); MCV 92 fL (80-95); MPV 10.5 fL (8.0-11.0); Monocytes % 10.4; Neutrophils % 44.4; Platelet Count 231 10^3/uL (130-400); RBC 3.71 10^6/uL (3.93-5.22); RDW 14.4 % (11.7-14.6); RDW-SD 48.9 fL
[2023-06-26 09:01] LABS: ALT 82 U/L (14-59); AST 37 U/L (15-37); Alkaline Phosphatase 162 U/L (46-116); BUN 18 mg/dL (7-18); Bilirubin, Total 0.3 mg/dL (0.2-1.0); C-Reactive Protein < 0.50 mg/dL (<or=0.5); CREATININE 0.5 mg/dL (0.55-1.02); Calcium 8.3 mg/dL (8.5-10.1); Chloride 109 mmol/L (98-107); Estimated GFR 109.33 (mL/min/1.73m2); Glucose 91 mg/dL (74-106); Magnesium 1.7 mg/dL (1.8-2.4); PHOSPHORUS 3.3 mg/dL (2.6-4.7); Potassium 4.4 mmol/L (3.5-5.1); Sodium 142 mmol/L (136-145); Total Protein 6.9 g/dL (6.4-8.2)
[2023-06-26 09:13] LABS: Triglyceride 62 mg/dL (<150)
[2023-06-27 09:35] LABS: Prealbumin 17 mg/dL (20-40)
[2023-07-03] MEDS: IRON SUCROSE COMPLEX 200 MG in Normal Saline 100 ML 440 MG IVPB (08:53)
[2023-07-03] MEDS: Normal Saline Flush 10 ML SYR IVP (08:54)
[2023-07-09] MEDS: Normal Saline Flush 10 ML SYR IVP (08:21)
[2023-07-09 08:35] LABS: Abs Immature Grans 0.01 10^3/uL (0.0-0.06); Absolute Basophil Count 0.14 10^3/uL (0.0-0.2); Absolute Lymphocyte Count 2.35 10^3/uL (1.2-3.4); Basophils % 2.6; Eosinophils % 7.4; HCT 33.1 % (36.0-46.0); HGB 10.8 g/dL (11.2-15.7); Immature Grans % 0.2; Lymphocytes % 43.5; MCH 29.5 pg (27.0-33.0); MCHC 32.6 % (32.0-36.0); MCV 90 fL (80-95); MPV 10.3 fL (8.0-11.0); Monocytes % 9.3; Platelet Count 283 10^3/uL (130-400); RBC 3.66 10^6/uL (3.93-5.22); RDW 14.8 % (11.7-14.6); RDW-SD 48.9 fL
[2023-07-09 09:01] LABS: ALT 61 U/L (14-59); AST 40 U/L (15-37); Albumin 2.9 g/dL (3.4-5.0); Alkaline Phosphatase 161 U/L (46-116); Anion Gap 7.8 mmol/L (3-11); BUN 14 mg/dL (7-18); Bilirubin, Total 0.3 mg/dL (0.2-1.0); CO2 25.2 mmol/L (21.0-32.0); CREATININE 0.6 mg/dL (0.55-1.02); Calcium 8.1 mg/dL (8.5-10.1); Chloride 107 mmol/L (98-107); Estimated GFR 104.63 (mL/min/1.73m2); Glucose 89 mg/dL (74-106); Magnesium 1.7 mg/dL (1.8-2.4); PHOSPHORUS 3.8 mg/dL (2.6-4.7); Potassium 4.4 mmol/L (3.5-5.1); Sodium 140 mmol/L (136-145); Total Protein 6.6 g/dL (6.4-8.2)
[2023-07-09 09:03] LABS: C-Reactive Protein < 0.50 mg/dL (<or=0.5)
[2023-07-09 09:17] LABS: Triglyceride 72 mg/dL (<150)
[2023-07-10 08:29] LABS: Prealbumin 18 mg/dL (20-40)
== END 2023-07-23 23:59 | disposition home or self-care (01) ==
LOC: INF 04:49
PROVIDERS: PCP Nurse Practitioner Family; Visit Provider Internal Medicine Gastroenterology
DX: Z78.9 Other specified health status (principal)
CPT/HCPCS: 36592; 80053; 96365; 83735; 84100; 84134; 84478; 85025; 86140; J1756

== ENCOUNTER 2023-08-13 09:15 | Outpatient (REF) | payer BC, SELFPAY | END 2023-08-13 09:16 | disposition home or self-care (01) | LOC: LBN 09:15 | PROVIDERS: PCP Nurse Practitioner Family; Visit Provider Nurse Practitioner Family | DX: N39.0 Urinary tract infection, site not specified (principal); B96.89 Other specified bacterial agents as the cause of diseases classified elsewhere; B96.20 Unspecified Escherichia coli [E. coli] as the cause of diseases classified elsewhere | CPT/HCPCS: 87077; 87086; 87186 ==

== ENCOUNTER 2023-08-21 04:50 | Outpatient (RCR) | payer BC, SELFPAY ==
[2023-07-24] MEDS: Normal Saline Flush 10 ML SYR IVP (08:13)
[2023-07-24 08:42] LABS: Abs Immature Grans 0.02 10^3/uL (0.0-0.06); Absolute Basophil Count 0.14 10^3/uL (0.0-0.2); Absolute Eosinophil Count 0.45 10^3/uL (0.0-0.7); Absolute Lymphocyte Count 2.18 10^3/uL (1.2-3.4); Absolute Monocyte Count 0.52 10^3/uL (0.1-0.8); Basophils % 2.5 %; Eosinophils % 8.2 %; HCT 36.6 % (36.0-46.0); HGB 11.5 g/dL (11.2-15.7); Immature Grans % 0.4 %; Lymphocytes % 39.6 %; MCH 29.5 pg (27.0-33.0); MCHC 31.4 % (32.0-36.0); MCV 94 fL (80-95); MPV 10.6 fL (8.0-11.0); Monocytes % 9.4 %; Neutrophils % 39.9 %; Platelet Count 235 10^3/uL (130-400); RDW 15.1 % (11.7-14.6); RDW-SD 52.2 fL; WBC 5.51 10^3/uL (4.4-10.8)
[2023-07-24 08:59] LABS: ALT 64 U/L (14-59); AST 44 U/L (15-37); Albumin 3.2 g/dL (3.4-5.0); Alkaline Phosphatase 186 U/L (46-116); Anion Gap 12.7 mmol/L (3-11); BUN 6 mg/dL (7-18); Bilirubin, Total 0.2 mg/dL (0.2-1.0); C-Reactive Protein < 0.50 mg/dL (<or=0.5); CO2 19.3 mmol/L (21.0-32.0); CREATININE 0.6 mg/dL (0.55-1.02); Calcium 8.6 mg/dL (8.5-10.1); Chloride 109 mmol/L (98-107); Estimated GFR 104.63 (mL/min/1.73m2); Glucose 101 mg/dL (74-106); Magnesium 1.3 mg/dL (1.8-2.4); PHOSPHORUS 3.4 mg/dL (2.6-4.7); Potassium 4.1 mmol/L (3.5-5.1); Sodium 141 mmol/L (136-145); Total Protein 7.3 g/dL (6.4-8.2)
[2023-07-24 09:11] LABS: Triglyceride 82 mg/dL (<150)
[2023-07-25 11:34] LABS: Prealbumin 17 mg/dL (20-40)
[2023-07-31] MEDS: IRON SUCROSE COMPLEX 200 MG in Normal Saline 100 ML 440 MG IVPB (08:28)
[2023-07-31] MEDS: Normal Saline Flush 10 ML SYR IVP (08:28)
[2023-07-31 09:01] LABS: Iron 29 ug/dL (50-170); Total Iron Binding Capacity 282 ug/dL (250-450); Transferrin Sat 10 % (15-50)
[2023-07-31 09:20] LABS: Ferritin 72 ng/mL (8-252); Folate 13.2 ng/mL (8.6-20.0); Vitamin B12 520 pg/mL (193-986)
[2023-08-02 11:24] LABS: Copper, Serum 78 mcg/dL (77-206); Selenium, Serum 112 mcg/L (110-165)
[2023-08-02 12:24] LABS: Zinc, S 108 mcg/dL (60-106)
[2023-08-02 22:23] LABS: Chromium, Serum 0.2 ng/mL (<0.3)
[2023-08-03 12:43] LABS: Free Retinol (Vitamin A) 33.6 mcg/dL (32.5-78.0)
[2023-08-06 09:34] LABS: Methylmalonic Acid 0.61 nmol/mL (<=0.40)
[2023-08-06 12:36] LABS: Manganese, Serum 0.6 ng/mL (0.5-1.2)
[2023-08-06 22:54] LABS: Vitamin E, Serum 9.4 mg/L (5.5 - 17.0)
[2023-08-07] MEDS: Normal Saline Flush 10 ML SYR IVP (09:06)
[2023-08-07 09:44] LABS: Abs Immature Grans 0.02 10^3/uL (0.0-0.06); Absolute Basophil Count 0.15 10^3/uL (0.0-0.2); Absolute Eosinophil Count 0.47 10^3/uL (0.0-0.7); Absolute Lymphocyte Count 2.28 10^3/uL (1.2-3.4); Absolute Monocyte Count 0.59 10^3/uL (0.1-0.8); Absolute Neutrophil Count 3.34 10^3/uL (1.2-6.7); Basophils % 2.2 %; Eosinophils % 6.9 %; HCT 34.9 % (36.0-46.0); HGB 11.1 g/dL (11.2-15.7); Immature Grans % 0.3 %; Lymphocytes % 33.3 %; MCH 29.3 pg (27.0-33.0); MCHC 31.8 % (32.0-36.0); MCV 92 fL (80-95); MPV 10.4 fL (8.0-11.0); Monocytes % 8.6 %; Neutrophils % 48.7 %; Platelet Count 310 10^3/uL (130-400); RBC 3.79 10^6/uL (3.93-5.22); RDW 15.9 % (11.7-14.6); RDW-SD 53.5 fL; WBC 6.85 10^3/uL (4.4-10.8)
[2023-08-07 10:04] LABS: ALT 41 U/L (14-59); AST 21 U/L (15-37); Albumin 3.1 g/dL (3.4-5.0); Alkaline Phosphatase 157 U/L (46-116); Anion Gap 10.4 mmol/L (3-11); BUN 13 mg/dL (7-18); Bilirubin, Total 0.3 mg/dL (0.2-1.0); CO2 19.6 mmol/L (21.0-32.0); CREATININE 0.8 mg/dL (0.55-1.02); Calcium 8.5 mg/dL (8.5-10.1); Chloride 110 mmol/L (98-107); Estimated GFR 85.89 (mL/min/1.73m2); Glucose 104 mg/dL (74-106); Magnesium 1.8 mg/dL (1.8-2.4); Potassium 3.7 mmol/L (3.5-5.1); Sodium 140 mmol/L (136-145); Triglyceride 76 mg/dL (<150)
[2023-08-07 10:14] LABS: PHOSPHORUS 3.9 mg/dL (2.6-4.7)
[2023-08-07 10:15] LABS: C-Reactive Protein < 0.50 mg/dL (<or=0.5)
[2023-08-08 10:28] LABS: Prealbumin 17 mg/dL (20-40)
[2023-08-08 15:49] LABS: Arachidic Acid, C20.0 23 nmol/mL (50-90); Arachidonic Acid, C20:4w6 568 nmol/mL (520-1490); DHA, C22:6w3 396 nmol/mL (30-250); DPA, C22:5w3 103 nmol/mL (20-210); DPA, C22:5w6 17 nmol/mL (10-70); DTA, C22:4w6 21 nmol/mL (10-80); Docosenoic Acid, C22:1 6 nmol/mL (4-13); EPA, C20:5w3 207 nmol/mL (14-100); Hexadecenoic Acid, C16:1w9 68 nmol/mL (25-105); Lauric Acid, C12:0 28 nmol/mL (6-90); Linoleic Acid, C18:2w6 1595 nmol/mL (2270-3850); Mead Acid, C20:3w9 26 nmol/mL (7-30); Myristic Acid, C14:0 178 nmol/mL (30-450); Nervonic Acid, C24:1w9 67 nmol/mL (60-100); Oleic Acid, C18:1w9 1901 nmol/mL (650-3500); Palmitic Acid, C16:0 2424 nmol/mL (1480-3730); Palmitoleic Acid, C16:1w7 620 nmol/mL (110-1130); Stearic Acid, C18:0 664 nmol/mL (590-1170); Total Polyunsaturated Acid 3.2 mmol/L (3.2-5.8); Vaccenic Acid, C18:1w7 299 nmol/mL (280-740); a-Linolenic Acid, C18:3w3 61 nmol/mL (50-130); g-Linolenic Acid, C18:3w6 32 nmol/mL (16-150); h-g-Linolenic, C20:3w6 181 nmol/mL (50-250)
[2023-08-15] MEDS: Normal Saline Flush 10 ML SYR IVP (09:06)
[2023-08-21] MEDS: Normal Saline Flush 10 ML SYR IVP (08:15)
[2023-08-21 08:43] LABS: Abs Immature Grans 0.05 10^3/uL (0.0-0.06); Absolute Basophil Count 0.14 10^3/uL (0.0-0.2); Absolute Lymphocyte Count 1.85 10^3/uL (1.2-3.4); Absolute Monocyte Count 0.53 10^3/uL (0.1-0.8); Absolute Neutrophil Count 2.64 10^3/uL (1.2-6.7); Basophils % 2.5 %; Eosinophils % 7.1 %; HCT 31.2 % (36.0-46.0); HGB 10.1 g/dL (11.2-15.7); Immature Grans % 0.9 %; MCH 29.5 pg (27.0-33.0); MCHC 32.4 % (32.0-36.0); MCV 91 fL (80-95); MPV 10.3 fL (8.0-11.0); Monocytes % 9.4 %; Neutrophils % 47.1 %; Platelet Count 241 10^3/uL (130-400); RBC 3.42 10^6/uL (3.93-5.22); RDW 17.4 % (11.7-14.6); RDW-SD 57.6 fL; WBC 5.61 10^3/uL (4.4-10.8)
[2023-08-21 09:00] LABS: ALT 56 U/L (14-59); AST 46 U/L (15-37); Albumin 2.8 g/dL (3.4-5.0); Alkaline Phosphatase 136 U/L (46-116); Anion Gap 7.7 mmol/L (3-11); BUN 17 mg/dL (7-18); Bilirubin, Total 0.4 mg/dL (0.2-1.0); CO2 27.3 mmol/L (21.0-32.0); CREATININE 0.6 mg/dL (0.55-1.02); Calcium 8.4 mg/dL (8.5-10.1); Chloride 105 mmol/L (98-107); Estimated GFR 104.63 (mL/min/1.73m2); Glucose 94 mg/dL (74-106); Magnesium 1.8 mg/dL (1.8-2.4); Potassium 4.6 mmol/L (3.5-5.1); Sodium 140 mmol/L (136-145); Total Protein 6.4 g/dL (6.4-8.2); Triglyceride 71 mg/dL (<150)
[2023-08-21 09:29] LABS: PHOSPHORUS 3.4 mg/dL (2.6-4.7)
[2023-08-21 09:31] LABS: C-Reactive Protein < 0.50 mg/dL (<or=0.5)
[2023-08-22 09:41] LABS: Prealbumin 19 mg/dL (20-40)
== END 2023-08-23 23:59 | disposition home or self-care (01) ==
LOC: INF 04:50
PROVIDERS: PCP Nurse Practitioner Family; Visit Provider Internal Medicine Gastroenterology
DX: Z78.9 Other specified health status (principal); K90.829 Short bowel syndrome, unspecified; E55.9 Vitamin D deficiency, unspecified; E61.0 Copper deficiency; E50.9 Vitamin A deficiency, unspecified; R56.00 Simple febrile convulsions; E60 Dietary zinc deficiency; D51.3 Other dietary vitamin B12 deficiency anemia; D64.9 Anemia, unspecified; K90.9 Intestinal malabsorption, unspecified; R19.7 Diarrhea, unspecified; K90.49 Malabsorption due to intolerance, not elsewhere classified
CPT/HCPCS: 36592; 80053; 80186; 82306; 82525; 82725; 84630; 96365; 82495; 82607; 82728; 82746; 83540; 83550; 83735; 83785; 84100; 84134; 84255; 84446; 84478; 84590; 85025; 86140; J1756

== ENCOUNTER 2023-09-18 01:14 | Outpatient (RCR) | payer BC, SELFPAY ==
[2023-08-28] MEDS: IRON SUCROSE COMPLEX 200 MG in Normal Saline 100 ML 440 MG IVPB (08:00)
[2023-08-28] MEDS: Normal Saline Flush 10 ML SYR IVP (08:01)
[2023-09-04] MEDS: Normal Saline Flush 10 ML SYR IVP (08:28)
[2023-09-04 08:58] LABS: Abs Immature Grans 0.01 10^3/uL (0.0-0.06); Absolute Basophil Count 0.11 10^3/uL (0.0-0.2); Absolute Eosinophil Count 0.39 10^3/uL (0.0-0.7); Absolute Lymphocyte Count 2.03 10^3/uL (1.2-3.4); Absolute Monocyte Count 0.54 10^3/uL (0.1-0.8); Absolute Neutrophil Count 1.89 10^3/uL (1.2-6.7); Basophils % 2.2 %; Eosinophils % 7.8 %; HCT 34.4 % (36.0-46.0); Immature Grans % 0.2 %; Lymphocytes % 40.8 %; MCH 29.5 pg (27.0-33.0); MCV 92 fL (80-95); MPV 10.6 fL (8.0-11.0); Monocytes % 10.9 %; Neutrophils % 38.1 %; Platelet Count 270 10^3/uL (130-400); RBC 3.73 10^6/uL (3.93-5.22); RDW 17.1 % (11.7-14.6); RDW-SD 57.4 fL; WBC 4.97 10^3/uL (4.4-10.8)
[2023-09-04 09:15] LABS: ALT 42 U/L (14-59); AST 24 U/L (15-37); Alkaline Phosphatase 147 U/L (46-116); Anion Gap 5.7 mmol/L (3-11); BUN 12 mg/dL (7-18); Bilirubin, Total 0.3 mg/dL (0.2-1.0); CO2 28.3 mmol/L (21.0-32.0); CREATININE 0.6 mg/dL (0.55-1.02); Calcium 8.8 mg/dL (8.5-10.1); Chloride 104 mmol/L (98-107); Estimated GFR 104.63 (mL/min/1.73m2); Glucose 92 mg/dL (74-106); Magnesium 1.6 mg/dL (1.8-2.4); Potassium 4.4 mmol/L (3.5-5.1); Sodium 138 mmol/L (136-145); Total Protein 6.8 g/dL (6.4-8.2); Triglyceride 71 mg/dL (<150)
[2023-09-04 09:16] LABS: C-Reactive Protein < 0.50 mg/dL (<or=0.5)
[2023-09-04 09:25] LABS: PHOSPHORUS 4.1 mg/dL (2.6-4.7)
[2023-09-05 09:41] LABS: Prealbumin 17 mg/dL (20-40)
[2023-09-11] MEDS: Normal Saline Flush 10 ML SYR IVP (09:56)
[2023-09-18] MEDS: Normal Saline Flush 10 ML SYR IVP (08:30)
[2023-09-18 08:45] LABS: Abs Immature Grans 0.01 10^3/uL (0.0-0.06); Absolute Basophil Count 0.14 10^3/uL (0.0-0.2); Absolute Eosinophil Count 0.42 10^3/uL (0.0-0.7); Absolute Lymphocyte Count 2.19 10^3/uL (1.2-3.4); Absolute Monocyte Count 0.54 10^3/uL (0.1-0.8); Absolute Neutrophil Count 1.74 10^3/uL (1.2-6.7); Basophils % 2.8 %; Eosinophils % 8.3 %; HCT 37.1 % (36.0-46.0); HGB 11.8 g/dL (11.2-15.7); Immature Grans % 0.2 %; Lymphocytes % 43.5 %; MCH 29.9 pg (27.0-33.0); MCHC 31.8 % (32.0-36.0); MCV 94 fL (80-95); MPV 10.6 fL (8.0-11.0); Monocytes % 10.7 %; Neutrophils % 34.5 %; Platelet Count 223 10^3/uL (130-400); RBC 3.94 10^6/uL (3.93-5.22); RDW 15.3 % (11.7-14.6); RDW-SD 53.3 fL; WBC 5.04 10^3/uL (4.4-10.8)
[2023-09-18 08:58] LABS: ALT 53 U/L (14-59); AST 32 U/L (15-37); Albumin 3.2 g/dL (3.4-5.0); Alkaline Phosphatase 157 U/L (46-116); Anion Gap 11.8 mmol/L (3-11); BUN 17 mg/dL (7-18); Bilirubin, Total 0.33 mg/dL (0.2-1.0); C-Reactive Protein < 0.50 mg/dL (<or=0.5); CO2 20.2 mmol/L (21.0-32.0); CREATININE 0.7 mg/dL (0.55-1.02); Calcium 8.4 mg/dL (8.5-10.1); Chloride 107 mmol/L (98-107); Estimated GFR 100.81 (mL/min/1.73m2); Glucose 86 mg/dL (74-106); Magnesium 1.4 mg/dL (1.8-2.4); PHOSPHORUS 3.7 mg/dL (2.6-4.7); Potassium 4.2 mmol/L (3.5-5.1); Sodium 139 mmol/L (136-145)
[2023-09-18 09:09] LABS: Triglyceride 61 mg/dL (<150)
[2023-09-19 09:21] LABS: Prealbumin 17 mg/dL (20-40)
== END 2023-09-22 23:59 | disposition home or self-care (01) ==
LOC: INF 01:14
PROVIDERS: PCP Nurse Practitioner Family; Visit Provider Internal Medicine Gastroenterology
DX: Z78.9 Other specified health status (principal)
CPT/HCPCS: 36592; 80053; 96365; 83735; 84100; 84134; 84478; 85025; 86140; J1756

== ENCOUNTER 2023-10-21 19:29 | Emergency (ER) | payer BC, SELFPAY ==
[2023-10-21] VITALS (48 sets, daily range): BP systolic 96–162; BP diastolic 58–82; PULSE 69–90; RESP 11–23; TEMP 36.1; O2SAT 95–98
--- NOTE | 2023-10-21 19:48 | NUR.NOTE ---
Nursing Note: provided with ice
[2023-10-21] MEDS: ACETAMINOPHEN 1,000 MG/100 ML BTL 400 MG IVPB (20:24)
[2023-10-21] MEDS: Ketorolac 15 MG/ML VIAL IVP (20:25)
--- NOTE | 2023-10-21 20:29 | DI.RAD_ITS ---
Exam(s) XR FOREARM RT XR WRIST RT COMPLETE EXAM: XR WRIST RT COMPLETE CLINICAL HISTORY: right wrist deformity. TECHNIQUE: 2D digital imaging was performed. Three views of the wrist. Two views of the forearm COMPARISON: CR,XR XR FOREARM RT from 10/21/2023 FINDINGS: BONES: There is a comminuted intra-articular fracture of the distal radius. There is some impaction as well as dorsal angulation. There is minimal separation at the articular surface. The ulnar stylo id is also fractured mildly comminuted. The carpal bones appear intact. No fractures are seen more p roximally in the radius and ulna. No bony destructive lesion is seen. JOINTS: The carpal bones are normally aligned. The elbow is unremarkable as visualized. SOFT TISSUE: Swelling around the wrist. IMPRESSION: Distal radial and ulnar fractures. DATA REPOSITORY: RADIATION DOSE DELIVERED:
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
--- NOTE | 2023-10-21 21:07 | DI.VRAD_ITS ---
PROCEDURE INFORMATION: Exam: XR Right Forearm Exam date and time: 10/21/2023 8:13 PM Age: 58 years old Clinical indication: Injury or trauma; Blunt trauma (contusions or hematomas); Injury date: 10/21/23; Patient HX: Right wrist deformity, fall TECHNIQUE: Imaging protocol: Radiologic exam of the right forearm. Views: 2 views. COMPARISON: CR XR WRIST RT COMPLETE 10/21/2023 8:08 PM FINDINGS: Bones/joints: Mildly impacted fracture of the distal radial metadiaphysis with moderate dorsal angulation of the distal fragment. Ulnar styloid fracture without significant displacement of fragments. Mid to proximal ulna and radius appear intact. Osseous alignment otherwise normal. Soft tissues: Normal. IMPRESSION: Fractures of the distal radius and ulnar styloid as described Dictated and Authenticated by: Emanuel Gregorio MD. Ordering:ADELINA Melgar MD
--- NOTE | 2023-10-21 21:09 | DI.VRAD_ITS ---
PROCEDURE INFORMATION: Exam: XR Right Wrist Exam date and time: 10/21/2023 8:08 PM Age: 58 years old Clinical indication: Injury or trauma; Blunt trauma (contusions or hematomas); Right; Injury date: 10/21/23; Patient HX: Fall, wrist deformity TECHNIQUE: Imaging protocol: Radiologic exam of the right wrist. Views: 3 or more views. COMPARISON: US UPPER EXTREMITY VENOUS RT 01/08/2023 1:18 PM FINDINGS: Bones/joints: Mildly impacted fracture of the distal radius with suspected intra-articular extension. There is moderate dorsal angulation of the distal radial fragment. Comminuted fracture of the ulnar styloid without significant displacement of fragments. Carpal bones appear intact and normally aligned. Soft tissues: Normal. IMPRESSION: Fractures of the distal radius and ulnar styloid as described Dictated and Authenticated by: Emanuel Gregorio MD. Ordering:ADELINA Melgar MD
[2023-10-21] MEDS: Ketamine 500 MG/10 ML VIAL 68 MG IVP (21:57)
[2023-10-21] MEDS: fentaNYL 100 MCG/2 ML VIAL 25 MCG IVP (21:57)
[2023-10-21] MEDS: Ondansetron 4 MG/2 ML VIAL IVP (21:59)
--- NOTE | 2023-10-21 22:27 | DI.RAD_ITS ---
Exam(s) XR WRIST RT COMPLETE EXAM: XR WRIST RT COMPLETE INDICATION: post reduction. COMPARISON: CR,XR XR WRIST RT COMPLETE from 10/21/2023 TECHNIQUE: 2D digital imaging was performed. Three views. FINDINGS: A splint has been placed which somewhat obscures the bony detail.. There has been no visible change in alignment of the distal radial and ulnar styloid fractures. DATA REPOSITORY: RADIATION DOSE DELIVERED:
--- NOTE | 2023-10-21 22:32 | DI.VRAD_ITS ---
PROCEDURE INFORMATION: Exam: XR Right Wrist Exam date and time: 10/21/2023 10:19 PM Age: 58 years old Clinical indication: Other: Post reduction TECHNIQUE: Imaging protocol: Radiologic exam of the right wrist. Views: 3 or more views. COMPARISON: CR XR WRIST RT COMPLETE 10/21/2023 8:08 PM FINDINGS: Bones/joints: There is mild improvement of alignment of the distal radius fracture previously described. Ulnar styloid fracture partially obscured. Soft tissues: Normal. Other findings: There has been interval placement of casting material. IMPRESSION: Mild improvement of distal radius fracture alignment Dictated and Authenticated by: Emanuel Gregorio MD. Ordering:ADELINA Melgar MD
== END 2023-10-21 23:13 | disposition home or self-care (01) ==
PROVIDERS: Emergency Provider Emergency Medicine; PCP Nurse Practitioner Family
DX: S52.571A Other intraarticular fracture of lower end of right radius, initial encounter for closed fracture (principal); S52.611A Displaced fracture of right ulna styloid process, initial encounter for closed fracture; E11.9 Type 2 diabetes mellitus without complications; Z79.84 Long term (current) use of oral hypoglycemic drugs; Z86.718 Personal history of other venous thrombosis and embolism; W18.39XA Other fall on same level, initial encounter; Y93.H2 Activity, gardening and landscaping; Y92.017 Garden or yard in single-family (private) house as the place of occurrence of the external cause
CPT/HCPCS: 96365; 96375; 99284; 25605; 73090; 73110; J0131; J1885; J2405; J3010

== ENCOUNTER 2023-10-23 01:34 | Outpatient (RCR) | payer BC, SELFPAY ==
[2023-09-25] MEDS: Normal Saline Flush 10 ML SYR IVP (08:21)
[2023-10-02] MEDS: Normal Saline Flush 10 ML SYR IVP (09:16)
[2023-10-02 09:24] LABS: Abs Immature Grans 0.02 10^3/uL (0.0-0.06); Absolute Basophil Count 0.13 10^3/uL (0.0-0.2); Absolute Eosinophil Count 0.47 10^3/uL (0.0-0.7); Absolute Lymphocyte Count 1.59 10^3/uL (1.2-3.4); Absolute Monocyte Count 0.46 10^3/uL (0.1-0.8); Absolute Neutrophil Count 2.54 10^3/uL (1.2-6.7); Basophils % 2.5 %; HCT 35.6 % (36.0-46.0); HGB 11.4 g/dL (11.2-15.7); Immature Grans % 0.4 %; Lymphocytes % 30.5 %; MCH 29.3 pg (27.0-33.0); MCV 92 fL (80-95); MPV 10.4 fL (8.0-11.0); Monocytes % 8.8 %; Neutrophils % 48.8 %; Platelet Count 227 10^3/uL (130-400); RBC 3.89 10^6/uL (3.93-5.22); RDW-SD 53.5 fL; WBC 5.21 10^3/uL (4.4-10.8)
[2023-10-02 09:44] LABS: ALT 51 U/L (14-59); AST 36 U/L (15-37); Alkaline Phosphatase 146 U/L (46-116); Anion Gap 7.6 mmol/L (3-11); BUN 15 mg/dL (7-18); Bilirubin, Total 0.27 mg/dL (0.2-1.0); C-Reactive Protein < 0.50 mg/dL (<or=0.5); CO2 24.4 mmol/L (21.0-32.0); CREATININE 0.6 mg/dL (0.55-1.02); Calcium 8.5 mg/dL (8.5-10.1); Chloride 110 mmol/L (98-107); Estimated GFR 104.63 (mL/min/1.73m2); Glucose 100 mg/dL (74-106); Magnesium 1.8 mg/dL (1.8-2.4); PHOSPHORUS 3.8 mg/dL (2.6-4.7); Potassium 4.2 mmol/L (3.5-5.1); Sodium 142 mmol/L (136-145); Total Protein 6.8 g/dL (6.4-8.2)
[2023-10-02 09:54] LABS: Triglyceride 86 mg/dL (<150)
[2023-10-03 09:24] LABS: Prealbumin 17 mg/dL (20-40)
[2023-10-09] MEDS: Normal Saline Flush 10 ML SYR IVP (09:30)
[2023-10-16] MEDS: Normal Saline Flush 10 ML SYR IVP (08:06)
[2023-10-16 08:23] LABS: Abs Immature Grans 0.01 10^3/uL (0.0-0.06); Absolute Eosinophil Count 0.42 10^3/uL (0.0-0.7); Absolute Lymphocyte Count 1.47 10^3/uL (1.2-3.4); Absolute Monocyte Count 0.59 10^3/uL (0.1-0.8); Absolute Neutrophil Count 1.99 10^3/uL (1.2-6.7); Basophils % 2.2 %; Eosinophils % 9.2 %; HCT 33.6 % (36.0-46.0); Immature Grans % 0.2 %; Lymphocytes % 32.1 %; MCH 29.6 pg (27.0-33.0); MCHC 32.7 % (32.0-36.0); MCV 90 fL (80-95); MPV 10.8 fL (8.0-11.0); Monocytes % 12.9 %; Neutrophils % 43.4 %; Platelet Count 200 10^3/uL (130-400); RBC 3.72 10^6/uL (3.93-5.22); RDW 15.4 % (11.7-14.6); RDW-SD 50.8 fL; WBC 4.58 10^3/uL (4.4-10.8)
[2023-10-16 08:39] LABS: ALT 40 U/L (14-59); AST 23 U/L (15-37); Alkaline Phosphatase 145 U/L (46-116); Anion Gap 9.7 mmol/L (3-11); BUN 16 mg/dL (7-18); Bilirubin, Total 0.28 mg/dL (0.2-1.0); C-Reactive Protein < 0.50 mg/dL (<or=0.5); CREATININE 0.6 mg/dL (0.55-1.02); Calcium 8.3 mg/dL (8.5-10.1); Chloride 106 mmol/L (98-107); Estimated GFR 104.63 (mL/min/1.73m2); Glucose 93 mg/dL (74-106); Magnesium 1.8 mg/dL (1.8-2.4); PHOSPHORUS 3.4 mg/dL (2.6-4.7); Potassium 4.2 mmol/L (3.5-5.1); Sodium 140 mmol/L (136-145); Total Protein 6.8 g/dL (6.4-8.2)
[2023-10-16 08:50] LABS: CO2 25.3 mmol/L (21.0-32.0); Triglyceride 64 mg/dL (<150)
[2023-10-17 10:15] LABS: Prealbumin 16 mg/dL (20-40)
== END 2023-10-23 23:59 | disposition home or self-care (01) ==
LOC: INF 01:34
PROVIDERS: PCP Nurse Practitioner Family; Visit Provider Internal Medicine Gastroenterology
DX: Z45.2 Encounter for adjustment and management of vascular access device; Z78.9 Other specified health status
CPT/HCPCS: 36592; 80053; 83735; 84100; 84134; 84478; 85025; 86140

== ENCOUNTER 2023-10-23 11:06 | Day surgery (SDC) | payer BC, SELFPAY ==
[2023-10-23] VITALS (7 sets, daily range): BP systolic 104–113; BP diastolic 51–61; PULSE 56–68; RESP 16–20; TEMP 36.2–36.9; O2SAT 93–97; BMI 25.6
--- NOTE | 2023-10-23 11:48 | PDOC.DSDIS_ITS ---
Date of service: 10/23/23 Time of Service: 11:48 Discharge Plan Disposition Patient Disposition: Home Condition: Good Discharge Details Reason For Visit: ORIF R Wrist Attending Provider: Gregorio Alves Primary Care Provider: Celso Orona Home Meds and New Rx's Prescriptions: New acetaminophen 500 mg tablet 1,000 mg PO TID Qty: 90 3RF ibuprofen 600 mg tablet 600 mg PO TID PRNQty: 90 3RF oxycodone 5 mg tablet 5 mg PO Q4H MDD 6 tabs PRN (Reason: pain) Qty: 20 0RF Continued levothyroxine 175 mcg tablet 350 mcg PO DAILY Qty: 180 3RF fluticasone furoate-vilanterol [Breo Ellipta] 200-25 mcg/dose blister with device 1 inh INHALATION DAILY Qty: 60 3RF albuterol sulfate 90 mcg/actuation HFA aerosol inhaler 2 puff inhalation Q6H PRN (Reason: bronchospasm) Qty: 8.5 3RF ergocalciferol (vitamin D2) 1,250 mcg (50,000 unit) capsule 1,250 mcg PO QWEEK potassium chloride 20 mEq tablet extended release 20 meq PO BID colestipol 1 gram tablet 1 g PO BID vitamin K2 100 mcg capsule 100 mcg PO .MWF Rx Instructions: 100 mcg orally MWF; TPN Electrolytes 35-20-5 mEq/20 mL solution 150 ml IV .4x/week Injectafer 100 mg iron/2 mL solution 100 mg IV Q1M pantoprazole 40 mg tablet,delayed release (DR/EC) 40 mg PO BID prochlorperazine maleate 5 MG tablet 1 tab PO Q6H PRN (Reason: nausea) multivitamin Tablet 1 tab PO DAILY magnesium chloride [Mag 64] 64 mg Tablet,Delayed Release (Dr/Ec) 64 mg PO BID Qty: 0 0RF cyanocobalamin (vitamin B-12) 1,000 mcg/mL Solution 1,000 mcg IM QMONTH Discharge Instructions Additional Instructions: Wrist Fracture Fixation Discharge Instructions Activity: You should keep the hand/wrist elevated as much as possible for the first few days. You may use the other fingers as tolerated but avoid trying to do too much too soon. You may perform light activities with the splint in place. Dressing/Cast: Your splint should stay in place at all times. Do NOT get it wet. You may loosen the MARCELLUS wrap if you feel it is too tight and then rewrap more loosely. Medications: - You should take Tylenol and Ibuprofen for baseline pain control. - You have been prescribed a stronger pain medication, Oxycodone, for breakthrough pain. - You may apply ice over the wrist, just double bag so it doesn't get wet. Follow-up: 10-14 days Referrals: Gregorio Alves MD [ [facility] STAFF PHYSICIAN] - Equipment/Supplies: Splint Activity:: Elevate Remove Dressings/Wound Care:: Do Not Remove Shower/Bathe:: Cover Diet:: As Tolerated Discharge Orders Discharge Orders: Discharge Order (Routine); Ordered 10/23/23 Ordered By: Roland Rios DS: Diagnosis Discharge Diagnosis (1) Distal radius fracture, right: Status: Acute
[2023-10-23] MEDS: Normal Saline 10 ML VIAL IJ (12:01)
[2023-10-23] MEDS: Celecoxib 200 MG CAP 400 MG PO (12:01)
[2023-10-23] MEDS: Acetaminophen 500 MG TAB 1000 MG PO (12:01)
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
[2023-10-23] MEDS: Lactated Ringers 1,000 ML 80 ML IV (12:02)
--- NOTE | 2023-10-23 12:15 | ANES.PREOP_ITS ---
General Info Date of Service Date Performed: 10/23/23 Height: 5 ft 4 in Weight: 67.7 kg Body Mass Index (BMI): 25.6 Surgical Procedure: Operation Date: 10/23/23 14:25 Proposed Procedure Side Surgeon p Wrist ORIF Distal Radius Right Gregorio Alves MD Meds Allergies and Home Medications Allergies Allergy/AdvReac Type Severity Reaction Status Date / Time amoxicillin Allergy Severe anaphylasis Verified 10/23/23 11:48 latex Allergy Intermediate Hives Verified 10/23/23 11:48 exenatide (From [place]) AdvReac Severe Nausea Verified 10/23/23 11:48 adhesive tape AdvReac Skin Rash Verified 10/23/23 11:48 codeine AdvReac Nausea Verified 10/23/23 11:48 morphine AdvReac Nausea Verified 10/23/23 11:48 Home Medication ?Medication ?Instructions ?Recorded prochlorperazine maleate 5 mg 1 tab PO Q6H PRN nausea 11/04/17 tablet multivitamin 1 tab PO DAILY 05/27/18 magnesium chloride 64 mg 64 mg PO BID #0 tabs 05/28/18 (magnesium chloride) tablet,delayed release (Mag 64) cyanocobalamin (vitamin B-12) 1,000 mcg IM QMONTH 11/06/18 1,000 mcg/mL injection solution ergocalciferol (vitamin D2) 1,250 1,250 mcg PO QWEEK 11/27/19 mcg (50,000 unit) capsule potassium chloride 20 mEq 20 meq PO BID 11/27/19 tablet,extended release pantoprazole 40 mg tablet,delayed 40 mg PO BID 01/04/23 release colestipol 1 gram tablet 1 g PO BID 05/15/23 ferric carboxymaltose 100 mg 100 mg IV Q1M 05/15/23 iron/2 mL intravenous solution (Injectafer) sodium 35 mEq-potassium 20 mEq-mag 150 ml IV .4x/week 05/15/23 5 mEq/20 yZ-qnaozpy-mkvjdtl-acet IV (TPN Electrolytes) vitamin K2 100 mcg capsule 100 mcg PO .MWF 05/15/23 albuterol sulfate 90 mcg/actuation 2 puff inhalation Q6H PRN 05/20/23 aerosol inhaler bronchospasm #8.5 grams fluticasone furoate 200 1 inh inhalation DAILY #60 ea 05/20/23 mcg-vilanterol 25 mcg/dose inhalation powder (Breo Ellipta) levothyroxine 175 mcg tablet 350 mcg (2 x 175 mcg) PO DAILY 05/20/23 #180 tabs acetaminophen 500 mg tablet 1,000 mg (2 x 500 mg) PO TID #90 10/23/23 tabs ibuprofen 600 mg tablet 600 mg PO TID PRN #90 tabs 10/23/23 oxycodone 5 mg tablet 5 mg PO Q4H PRN pain #20 tabs 10/23/23 Current Visit Medications: Current Medications Generic Name Dose Route Start Last Admin Trade Name Freq PRN Reason Stop Dose Admin Acetaminophen 1,000 mg 10/23/23 06:00 10/23/23 12:01 Acetaminophen 500 Mg Tab PO 10/23/23 23:59 1,000 mg PREOP AMITA Administration Acetaminophen 650 mg 10/23/23 11:47 Acetaminophen 325 Mg Tab PO 11/22/23 11:46 Q4H PRN PRN Celecoxib 400 mg 10/23/23 06:00 10/23/23 12:01 Celecoxib 200 Mg Cap PO 10/23/23 23:59 400 mg PREOP AMITA Administration Ringer's Solution 1,000 mls @ 80 mls/hr 10/23/23 06:00 10/23/23 12:02 IV 10/23/23 23:59 80 mls/hr INFUSION AMITA Administration Cefazolin Sodium/Dextrose 2 gm in 50 mls @ 100 mls/hr 10/23/23 06:00 Ancef Duplex IVPB 10/23/23 23:59 PREOP AMITA Tranexamic Acid/Sodium Chloride 1,000 mg in 100 mls @ 600 mls/hr 10/23/23 06:00 IVPB 10/23/23 23:59 PREOP AMITA IV Miscellaneous Supplies 1 each 10/23/23 06:00 Iv Access IV 10/23/23 23:59 DIRECTED AMITA Oxycodone/Acetaminophen 1 tab 10/23/23 11:47 Oxycodone 5 Mg/Acetaminophen 325 Mg Tab PO 11/22/23 11:46 Q4H PRN PRN Pain Sodium Chloride 0 ml 10/23/23 06:00 Normal Saline Flush 10 Ml Syr IV 10/23/23 23:59 PRN PRN Sodium Chloride 0 ml 10/23/23 06:00 10/23/23 12:01 Normal Saline 10 Ml Vial IJ 10/23/23 23:59 10 ml DIRECTED PRN Administration Sterile Water 0 ml 10/23/23 06:00 Water,Injection,Sterile 10 Ml Vial IJ 10/23/23 23:59 DIRECTED PRN PFSH Active Problems Active Problems: Problem Status Onset Code Fracture of ulnar styloid Acute S52.613A Distal radius fracture, right Acute 10/21/23 S52.501A Short gut syndrome Acute K91.2 Hypothyroid Chronic E03.9 Asthma Chronic J45.909 Chronic pancreatitis Acute K86.1 Leukocytosis Acute D72.829 Hypotension Acute I95.9 Medical History Medical History Vascular catheter infection Bacteremia DVT (deep venous thrombosis) Hypoalbuminemia Hypocalcemia Hyperglycemia LOGAN (acute kidney injury) Hyponatremia Pharyngitis Hypomagnesemia Anemia Neutropenic fever Hx of blood clots Pt. states she had a blood clot in her neck 2013 Intestinal volvulus Diabetes Pt. denies having this: I lost 200lbs and it went away Cardiac murmur LSB-HOLOSYSTOLIC grade II/ As per PCP note 01/10/15 Lactic acidosis Surgical History Surgical History Hx of appendectomy S/P cholecystectomy Incarcerated hernia s/p bowel resection History of hysterectomy FOR OVARIAN TUMOR W/BILAT OOPHORECTOMY W/UTERUS REMOVED BUT CERVIX REMAINS Tibial plateau fracture (10/30/18) s/p ORIF on 11/10/2018 Tobacco Smoking/Tobacco Use Status: Never Passive smoking exposure: Yes Second hand exposure: Yes Alcohol Alcohol Intake: current Alcohol intake frequency: holidays/special occasions only Alcohol type: beer, wine and hard liquor Substance Use Substance use: Never Substance use type: does not use Vital Signs and Lab Results Vital Signs Most Recent Vital Signs in EMR: Most Recent Vital Signs Temp Pulse Resp BP Pulse Ox 36.9 C 66 16 113/61 97 10/23/23 11:52 10/23/23 11:52 10/23/23 11:52 10/23/23 11:52 10/23/23 11:52 Lab Results Blood Type / Crossmatch: No Data to Display Complete Blood Count: White Blood Count 4.58 10^3/uL (4.4-10.8) 10/16/23 07:55 Red Blood Count 3.72 10^6/uL (3.93-5.22) L 10/16/23 07:55 Hemoglobin 11.0 g/dL (11.2-15.7) L 10/16/23 07:55 Hematocrit 33.6 % (36.0-46.0) L 10/16/23 07:55 Platelet Count 200 10^3/uL (130-400) 10/16/23 07:55 Complete Metabolic Panel: Sodium 140 mmol/L (136-145) 10/16/23 07:55 Potassium 4.2 mmol/L (3.5-5.1) 10/16/23 07:55 Chloride 106 mmol/L (98-107) 10/16/23 07:55 Carbon Dioxide 25.3 mmol/L (21.0-32.0) 10/16/23 07:55 BUN 16 mg/dL (7-18) 10/16/23 07:55 Creatinine 0.6 mg/dL (0.55-1.02) 10/16/23 07:55 Est GFR (CKD-EPI 2020) 104.63 (mL/min/1.73m2) 10/16/23 07:55 Magnesium 1.8 mg/dL (1.8-2.4) 10/16/23 07:55 Calcium 8.3 mg/dL (8.5-10.1) L 10/16/23 07:55 Albumin 3.0 g/dL (3.4-5.0) L 10/16/23 07:55 Glucose 93 mg/dL (74-106) 10/16/23 07:55 C-Reactive Protein < 0.50 mg/dL (<or=0.5) 10/16/23 07:55 Liver Function Panel: Alanine Aminotransferase (ALT/SGPT) 40 U/L (14-59) 10/16/23 07: 55 Aspartate Amino Transf (AST/SGOT) 23 U/L (15-37) 10/16/23 07:55 Coagulation Panel: No Data to Display Cardiac Panel: No Data to Display Arterial Blood Gas: No Data to Display Venous Blood Gas: No Data to Display Pancreas Panel: No Data to Display Thyroid Panel: No Data to Display Infectious Disease: No Data to Display Blood Cultures: No Data to Display Toxicology Panel: No Data to Display Imaging and Studies Imaging and Studies Study information below may be from another EMR and interpreted by another provider. Please see original notes in EMR for more complete details. EKG Summary: 06/19/2021: Exam: Resting ECG Reason for Exam: tachycardia Patient Location: E HR:116 bpm ECG Measurements Heart Rate 116 AXIS OR 173 P 65 QRSd 75 QRS 75 QT 299 T34 QTc 416 Conclusion Sinus tachycardia...rate> 99 Probable left atrial enlargement...P >50mS, <-0.10mV V1 Low voltage, extremity leads...all extremity leads <0.5mV no STEMI I have reviewed and interpreted ECG and agree with software generated interpretation. Anesthesia Assessment and Plan Anesthesia History Personal History: No History of Anesthesia Complications Family History: No Family History of Anesthesia Complications Exercise Tolerance Exercise Tolerance: Metabolic Equivalents>4 Pertinent Negatives Pertinent Negatives: No Symptoms of GERD Cardiac & Pulmonary Exam Cardiac Exam: Normal S1/S2 Heart Sounds and Known Innocent Murmur Pulmonary Exam: Clear Bilateral Breath Sounds Implantable Cardiac Device Does patient have a Pacemaker or an ICD?: No Airway Exam Known Difficult Airway: No Mallampati Class: 2 Mouth Opening: Normal (> 3cm) Thyromental Distance: Greater than 3 cm Neck Range of Motion: Full ROM Neck Circumference: Normal Teeth Condition: Normal Dentition ASA Classification ASA Score: ASA 3 Emergency Case?: No NPO Status NPO Status: NPO Clears >2 hours, Solids >8 hours Anesthesia Plan Resuscitation Status: Full Code Anesthesia Technique: General Anesthesia Airway Planned: LMA Pain Management: Surgeon and patient request nerve block Monitors Used: Standard Monitors
--- NOTE | 2023-10-23 12:45 | DI.RAD_ITS ---
Exam(s) XR WRIST RT LIMITED EXAM: XR WRIST RT LIMITED CLINICAL HISTORY: Distal radius fracture, right. TECHNIQUE: 2D and realtime digital imaging was performed. COMPARISON: CR,XR XR WRIST RT COMPLETE from 10/21/2023 FINDINGS: Hard copy images show placement of a fixation plate along the volar aspect of the distal radius for f racture fixation. The alignment appears anatomic. Ulnar styloid fractures unchanged. Please see procedure note for details. Fluoro time: 1.46seconds RADIATION DOSE DELIVERED: karen Vazquez=0.73 mGy
--- NOTE | 2023-10-23 13:10 | W.ANESNERVE ---
Nerve Block Single Injection Procedure Date and Time Date Performed: 10/23/23 Procedure Start: 12:54 Location Where Procedure Performed Procedure Location: Day Surgery Unit Reason Performed: Postoperative Analgesia Requesting Provider: Gregorio Alves Timeout Performed Timeout Performed: Yes Monitoring Used ECG, Blood Pressure, SpO2 and ETCO2 Sterility Sterility: Hand Hygiene, Surgical Cap, Surgical Mask, Sterile Gloves and Chlorhexidine Sedation Given During Procedure Sedation Given (Indicate Dose Given): Versed IV Dose:: 2 mg Patient Mental Status Patient Mental Status: Sedate with meaningful communication Nerve Block 1st Nerve Block: Laterality: Right Block Type: Supraclavicular Ultrasound Image Saved?: Yes Needle / Catheter Used: 100mm SonoPlex II Local Anesthetic Bolus (Indicate Dose Given): Lidocaine used for local infiltration of skin, Injected in 3-5ml increments after negative blood aspiration, Bupivacaine 0.5% Dose:: 10 ml and Exparel Dose:: 10 ml Additives (Indicate Dose Given): Normal Saline (hydrodissection) Ultrasound: Sterile probe cover and gel used Nerve Stimulator: Supplement to Ultrasound use and No twitch or parasthesia noted < 0.5 mA Paresthesia: None Procedure Tolerated: No Complications and Patient tolerated well Procedure Outcome: Successful Performed By: Robbie Briones
[2023-10-23] MEDS: ceFAZolin 2 GM/50 ML BAG IVPB (14:00)
[2023-10-23] MEDS: TRANEXAMIC ACID/SOD. CHL. 1,000 MG/100 ML BAG 600 MG IVPB (14:09)
[2023-10-23] MEDS: Bupivacaine 0.5% Pres-Free W/EPI 30 ML VIAL (14:21)
--- NOTE | 2023-10-23 15:50 | W.PM.OP ---
Date of service: 10/23/23 Time of Service: 14:15 Operative Note Operative Note DATE OF PROCEDURE: 10/23/23 PRE-OP DIAGNOSIS: Right Distal Radius Fracture POST-OP DIAGNOSIS: same PROCEDURE: Open Reduction and Internal Fixation of Right Distal Radius SURGEON: Gregorio Alves STRAIGHT LINE PRESS SETTER: Roland Rios ANESTHESIA TYPE: General LMA/ETT and Primary Nerve Block Refer to Anesthesia Record ESTIMATED BLOOD LOSS: 20 PATHOLOGY: none sent TOURNIQUET TIME: 56 COMPLICATIONS: None Patient was transported to: PACU Patient's condition: stable Indications: Lacie is a 58 year old right hand dominant female who suffered a fall, resulting in a displaced distal radius fracture. Given the deformity, displacement, fracture pattern, and effect on daily function, I recommended surgical fixation. I reviewed the risk of the procedure to include bleeding, infection, stiffness, damage to nerves and vessels, damage to muscles and tendons, malunion, nonunion, hardware prominence, tendon rupture, need for repeat procedures. Despite these risks, the patient elected to proceed. Findings: There is a distal radius fracture which had 1 primary epiphyseal fragment although complicated by proximal, metaphyseal extension ulnarly and radially. It was reduced and fixed with a Synthes volar locking plate. Procedure Description: Lacie was greeted in the preoperative holding area. The correct patient and site was confirmed and marked. The history and physical was updated. The consent was reviewed the patient and signed. The patient seen by anesthesia in the [facility] for administration of regional anesthetic, supraclavicular block. The patient was taken to the operating room and placed in the supine position. All bony problems were well-padded. The right arm was placed onto a radiolucent hand table. A nonsterile tourniquet was placed high up on the arm. Prophylactic antibiotics in the form of cefazolin were administered. The left arm was prepped with ChloraPrep and draped in a standard fashion. A timeout was performed for safe surgery. A standard longitudinal incision was made overlying the flexor carpi radialis tendon starting at the distal wrist crease and moving proximally. The skin was incised sharply. The flexor carpi radialis tendon and its sheath is identified. The sheath was opened. The tendon was moved ulnarly in the floor of the sheath was incised. Blunt dissection the flexor pollicis longus muscle belly and tendon were also made radially exposing the pronator quadratus and the distal radius. The printer quadratus was elevated with an ulnar-based flap. This exposed the volar distal radius and the fracture. A oliva elevator was used for full exposure of the volar surface of the distal radius. The primary fracture line was exposed. Using a series of elevators, curettes, and knife, the fracture was fully debrided of any fibrous tissue and callus formation. I used a freer elevator to help mobilize the fragments. There was one primary epiphyseal fragment. There was also extension over the radial and ulnar aspect of the metaphysis. I then performed a closed reduction. Using gentle traction and fracture manipulation, this reduction was held. Fluoroscopic images were used to confirm adequate reduction. An appropriately sized Synthes volar locking plate was then placed onto the bony surface of the distal radius. Was then held there with a distal radius clamp sandwiching the plate to the distal segment. A single K wire was placed through the distal end. Fluoroscopy was once again used to confirm appropriate positioning of the plate on the distal radius. A reduction K wire was placed into the slotted hole on the shaft but not tightened all the way to allow for manipulation of the distal segment onto the proximal shaft. A single nonlocking screw was placed to the distal portion of the plate securing the plate against the bone of the distal radial metaphysis. Once again, the plate was evaluated to make sure it was aligned appropriately. The single screw was also checked to make sure it was in appropriate positioning for trajectory of future screws. The remainder of the screws within the volar locking plate were filled with locking screws. These were made sure not to penetrate the dorsal cortex. Once these were applied the proximal portion of the plate was further reduced down onto the shaft, which further reduce the distal segment. This was held in position with a tightened reduction K wire. Fluoroscopy was then used against confirm appropriate reduction. Nonlocking screws were placed within the 3 shaft screw holes. Despite having the correct length of the distalmost shaft screw, I was unable to get great purchase. Therefore this was converted to a locking screw. Final x-rays were obtained which demonstrated adequate reduction and positioning of hardware. The dorsal sunrise view was also obtained to ensure correct sizing of screws. The wound was then thoroughly irrigated. The pronator quadratus was attempted to be reapproximated with a 0 Vicryl. The tourniquet was released and there was no notable vascular injury. The fingers were warm and well-perfused. The deep dermal layer was closed with a 2-0 Vicryl. The skin was closed with 4-0 nylon. The wound was dressed with Xeroform, 4 x 4's, web roll. A short arm splint was applied. At the end the case all counts are correct. Patient was transferred back to the PACU in stable condition.
[2023-10-23] MEDS: fentaNYL 100 MCG/2 ML VIAL IVP (15:57)
--- NOTE | 2023-10-23 16:15 | W.ANESPOSTOP ---
Postoperative Evaluation Date, Time and Location Date Performed: 10/23/23 Time Performed: 16:11 Patient Location: PACU Vital Signs Most Recent Imported Vital Signs: Most Recent Vital Signs Temp Pulse Resp BP Pulse Ox 36.6 C 68 16 111/51 L 94 10/23/23 16:05 10/23/23 15:36 10/23/23 15:36 10/23/23 15:36 10/23/23 15:36 Pain Score Most Recent Pain Score: Most Recent Pain Score Pain Level 3 10/23/23 16:05 Assessment Mental Status: Awake (Alert & Oriented to Patient Baseline) Airway and Respiratory Function: Patent airway with normal (patient baseline) respiratory exam Cardiovascular Function: Hemodynamically Stable Hydration Status: Adequately Hydrated Nausea & Vomiting: No Nausea or Vomiting Pain: Pain is tolerable per patient Peripheral Nerve Block: Regional nerve block not resolved at time of post operative discharge
== END 2023-10-23 17:00 | disposition home or self-care (01) ==
PROVIDERS: PCP Nurse Practitioner Family; Visit Provider Student in an Organized Health Care Education/Training Program
PROC: (CPT 25608; principal; 2023-10-23 14:15)
DX: S52.611A Displaced fracture of right ulna styloid process, initial encounter for closed fracture; S52.571A Other intraarticular fracture of lower end of right radius, initial encounter for closed fracture; W19.XXXA Unspecified fall, initial encounter; E03.9 Hypothyroidism, unspecified; K86.1 Other chronic pancreatitis; J45.909 Unspecified asthma, uncomplicated; D64.9 Anemia, unspecified
CPT/HCPCS: 25608; 76000; 76942; 73100; C9290; J0665; J0690; J1100; J2250; J2405; J2704; J3010

== ENCOUNTER 2023-11-04 11:40 | Outpatient (CLI) | payer BC, SELFPAY ==
--- NOTE | 2023-11-04 08:56 | DI.RAD_ITS ---
Exam(s) XR WRIST RT LIMITED EXAM: XR WRIST RT LIMITED CLINICAL HISTORY: S/P ORIF R DISTAL RAD FX. TECHNIQUE: 2D digital imaging was performed. Two images were obtained. PA and lateral views were ob tained. COMPARISON: CR,XR XR WRIST RT COMPLETE from 10/21/2023 CR XR WRIST RT LIMITED from 10/23/2023 FINDINGS: BONES: There are stable post operative changes of internal fixation of the distal radial fracture pre sent. No change in alignment of the radial fracture or ulnar styloid process fracture. No new fract ure or dislocation. JOINTS: The joint spaces are well maintained. SOFT TISSUE: Normal. IMPRESSION: Stable postoperative changes. DATA REPOSITORY: RADIATION DOSE DELIVERED:
== END 2023-11-04 11:41 | disposition home or self-care (01) ==
LOC: DIORS 11:40
PROVIDERS: PCP Nurse Practitioner Family; Visit Provider Physician Assistant
DX: S52.611D Displaced fracture of right ulna styloid process, subsequent encounter for closed fracture with routine healing (principal); X58.XXXD Exposure to other specified factors, subsequent encounter; Z98.890 Other specified postprocedural states
CPT/HCPCS: 73100

== ENCOUNTER 2023-11-20 02:37 | Outpatient (RCR) | payer BC, SELFPAY ==
[2023-10-30] MEDS: IRON SUCROSE COMPLEX 200 MG in Normal Saline 100 ML 440 MG IVPB (08:19)
[2023-10-30] MEDS: Normal Saline Flush 10 ML SYR IVP (08:20)
[2023-10-30 08:40] LABS: Abs Immature Grans 0.01 10^3/uL (0.0-0.06); Absolute Basophil Count 0.14 10^3/uL (0.0-0.2); Absolute Eosinophil Count 0.47 10^3/uL (0.0-0.7); Absolute Lymphocyte Count 1.96 10^3/uL (1.2-3.4); Absolute Monocyte Count 0.66 10^3/uL (0.1-0.8); Basophils % 2.2 %; Eosinophils % 7.4 %; HCT 31.4 % (36.0-46.0); HGB 10.1 g/dL (11.2-15.7); Immature Grans % 0.2 %; Lymphocytes % 30.9 %; MCHC 32.2 % (32.0-36.0); MCV 93 fL (80-95); MPV 10.7 fL (8.0-11.0); Monocytes % 10.4 %; Neutrophils % 48.9 %; Platelet Count 332 10^3/uL (130-400); RBC 3.37 10^6/uL (3.93-5.22); RDW 14.9 % (11.7-14.6); WBC 6.34 10^3/uL (4.4-10.8)
[2023-10-30 09:24] LABS: ALT 47 U/L (14-59); AST 22 U/L (15-37); Albumin 3.3 g/dL (3.4-5.0); Alkaline Phosphatase 136 U/L (46-116); BUN 20 mg/dL (7-18); CREATININE 0.6 mg/dL (0.55-1.02); Chloride 108 mmol/L (98-107); Estimated GFR 104.63 (mL/min/1.73m2); Glucose 108 mg/dL (74-106); Magnesium 1.8 mg/dL (1.8-2.4); PHOSPHORUS 3.6 mg/dL (2.6-4.7); Potassium 4.5 mmol/L (3.5-5.1); Sodium 139 mmol/L (136-145); Total Protein 7.2 g/dL (6.4-8.2); Triglyceride 61 mg/dL (<150)
[2023-10-30 09:27] LABS: C-Reactive Protein < 0.50 mg/dL (<or=0.5)
[2023-10-31 09:36] LABS: Prealbumin 19 mg/dL (20-40)
[2023-11-06] MEDS: Normal Saline Flush 10 ML SYR IVP (08:20)
[2023-11-13] MEDS: Normal Saline Flush 10 ML SYR IVP (08:46)
[2023-11-13 08:55] LABS: Abs Immature Grans 0.01 10^3/uL (0.0-0.06); Absolute Basophil Count 0.11 10^3/uL (0.0-0.2); Absolute Eosinophil Count 0.35 10^3/uL (0.0-0.7); Absolute Lymphocyte Count 1.62 10^3/uL (1.2-3.4); Absolute Monocyte Count 0.47 10^3/uL (0.1-0.8); Absolute Neutrophil Count 1.57 10^3/uL (1.2-6.7); Basophils % 2.7 %; Eosinophils % 8.5 %; HCT 28.6 % (36.0-46.0); HGB 9.2 g/dL (11.2-15.7); Immature Grans % 0.2 %; Lymphocytes % 39.2 %; MCH 29.6 pg (27.0-33.0); MCHC 32.2 % (32.0-36.0); MCV 92 fL (80-95); MPV 10.6 fL (8.0-11.0); Monocytes % 11.4 %; Platelet Count 237 10^3/uL (130-400); RBC 3.11 10^6/uL (3.93-5.22); RDW 15.4 % (11.7-14.6); RDW-SD 51.8 fL; WBC 4.13 10^3/uL (4.4-10.8)
[2023-11-13 09:29] LABS: ALT 45 U/L (14-59); AST 23 U/L (15-37); Albumin 2.6 g/dL (3.4-5.0); Alkaline Phosphatase 157 U/L (46-116); Anion Gap 9.8 mmol/L (3-11); BUN 16 mg/dL (7-18); Bilirubin, Total 0.25 mg/dL (0.2-1.0); CO2 23.2 mmol/L (21.0-32.0); CREATININE 0.6 mg/dL (0.55-1.02); Chloride 107 mmol/L (98-107); Estimated GFR 104.63 (mL/min/1.73m2); Glucose 87 mg/dL (74-106); Magnesium 1.8 mg/dL (1.8-2.4); Sodium 140 mmol/L (136-145); Total Protein 6.1 g/dL (6.4-8.2); Triglyceride 61 mg/dL (<150)
[2023-11-13 09:36] LABS: C-Reactive Protein < 0.50 mg/dL (<or=0.5)
[2023-11-14 11:48] LABS: Prealbumin 15 mg/dL (20-40)
[2023-11-20] MEDS: Normal Saline Flush 10 ML SYR IVP (08:31)
== END 2023-11-23 23:59 | disposition home or self-care (01) ==
LOC: INF 02:37
PROVIDERS: PCP Nurse Practitioner Family; Visit Provider Internal Medicine Gastroenterology
DX: Z78.9 Other specified health status (principal)
CPT/HCPCS: 36592; 80053; 96365; 83735; 84100; 84134; 84478; 85025; 86140; J1756

== ENCOUNTER 2023-12-02 11:37 | Outpatient (CLI) | payer BC, SELFPAY ==
--- NOTE | 2023-12-02 08:45 | DI.RAD_ITS ---
Exam(s) XR WRIST RT LIMITED EXAM: XR WRIST RT LIMITED INDICATION: S/P ORIF R DISTAL RAD FX. COMPARISON: CR XR WRIST RT LIMITED from 11/04/2023 TECHNIQUE: 2D digital imaging was performed. Two views. FINDINGS: No change in fracture or hardware alignment. Increased callus formation is noted around the distal r adial fracture site. No new abnormalities. DATA REPOSITORY: RADIATION DOSE DELIVERED:
== END 2023-12-02 11:38 | disposition home or self-care (01) ==
LOC: DIORS 11:38
PROVIDERS: PCP Nurse Practitioner Family; Visit Provider Student in an Organized Health Care Education/Training Program
DX: S52.611D Displaced fracture of right ulna styloid process, subsequent encounter for closed fracture with routine healing (principal); X58.XXXD Exposure to other specified factors, subsequent encounter
CPT/HCPCS: 73100

== ENCOUNTER 2023-12-18 02:08 | Outpatient (RCR) | payer BC, SELFPAY ==
[2023-11-27] MEDS: IRON SUCROSE COMPLEX 200 MG in Normal Saline 100 ML 440 MG IVPB (08:49)
[2023-11-27] MEDS: Normal Saline Flush 10 ML SYR IVP (08:51)
[2023-11-27 09:36] LABS: Abs Immature Grans 0.01 10^3/uL (0.0-0.06); Absolute Basophil Count 0.14 10^3/uL (0.0-0.2); Absolute Eosinophil Count 0.36 10^3/uL (0.0-0.7); Absolute Lymphocyte Count 1.81 10^3/uL (1.2-3.4); Absolute Monocyte Count 0.47 10^3/uL (0.1-0.8); Absolute Neutrophil Count 1.59 10^3/uL (1.2-6.7); Basophils % 3.2 %; Eosinophils % 8.2 %; HCT 31.4 % (36.0-46.0); HGB 9.9 g/dL (11.2-15.7); Immature Grans % 0.2 %; Lymphocytes % 41.3 %; MCH 28.4 pg (27.0-33.0); MCHC 31.5 % (32.0-36.0); MCV 90 fL (80-95); MPV 10.9 fL (8.0-11.0); Monocytes % 10.7 %; Neutrophils % 36.4 %; Platelet Count 255 10^3/uL (130-400); RBC 3.48 10^6/uL (3.93-5.22); RDW 14.7 % (11.7-14.6); RDW-SD 49.1 fL; WBC 4.38 10^3/uL (4.4-10.8)
[2023-11-27 09:58] LABS: ALT 55 U/L (14-59); AST 27 U/L (15-37); Albumin 2.8 g/dL (3.4-5.0); Alkaline Phosphatase 148 U/L (46-116); Anion Gap 10.1 mmol/L (3-11); BUN 13 mg/dL (7-18); Bilirubin, Total 0.25 mg/dL (0.2-1.0); CO2 22.9 mmol/L (21.0-32.0); CREATININE 0.6 mg/dL (0.55-1.02); Calcium 8.8 mg/dL (8.5-10.1); Chloride 107 mmol/L (98-107); Estimated GFR 104.63 (mL/min/1.73m2); Glucose 87 mg/dL (74-106); Magnesium 1.6 mg/dL (1.8-2.4); PHOSPHORUS 3.4 mg/dL (2.6-4.7); Potassium 4.2 mmol/L (3.5-5.1); Sodium 140 mmol/L (136-145); Total Protein 6.7 g/dL (6.4-8.2)
[2023-11-27 10:00] LABS: C-Reactive Protein < 0.50 mg/dL (<or=0.5)
[2023-11-27 10:41] LABS: Triglyceride 46 mg/dL (<150)
[2023-11-28 10:10] LABS: Prealbumin 15 mg/dL (20-40)
[2023-12-04] MEDS: Normal Saline Flush 10 ML SYR IVP (08:26)
[2023-12-11] MEDS: Normal Saline Flush 10 ML SYR IVP (09:05)
[2023-12-11 09:50] LABS: Abs Immature Grans 0.01 10^3/uL (0.0-0.06); Absolute Eosinophil Count 0.45 10^3/uL (0.0-0.7); Absolute Lymphocyte Count 2.02 10^3/uL (1.2-3.4); Absolute Neutrophil Count 1.91 10^3/uL (1.2-6.7); Eosinophils % 8.8 %; HGB 9.8 g/dL (11.2-15.7); Immature Grans % 0.2 %; Lymphocytes % 39.7 %; MCH 29.3 pg (27.0-33.0); MCHC 31.6 % (32.0-36.0); MCV 93 fL (80-95); MPV 11.3 fL (8.0-11.0); Monocytes % 11.8 %; Neutrophils % 37.5 %; Platelet Count 221 10^3/uL (130-400); RBC 3.34 10^6/uL (3.93-5.22); RDW 15.6 % (11.7-14.6); RDW-SD 53.2 fL; WBC 5.09 10^3/uL (4.4-10.8)
[2023-12-11 10:02] LABS: INR 1.2 (0.9-1.1); Prothrombin Time 11.8 sec (9.1-11.1)
[2023-12-11 10:17] LABS: ALT 59 U/L (14-59); AST 30 U/L (15-37); Albumin 2.6 g/dL (3.4-5.0); Alkaline Phosphatase 143 U/L (46-116); Anion Gap 6.5 mmol/L (3-11); BUN 15 mg/dL (7-18); Bilirubin, Total 0.19 mg/dL (0.2-1.0); CO2 26.5 mmol/L (21.0-32.0); CREATININE 0.5 mg/dL (0.55-1.02); Calcium 8.5 mg/dL (8.5-10.1); Chloride 105 mmol/L (98-107); Estimated GFR 109.33 (mL/min/1.73m2); Glucose 89 mg/dL (74-106); Magnesium 1.8 mg/dL (1.8-2.4); PHOSPHORUS 3.1 mg/dL (2.6-4.7); Potassium 4.1 mmol/L (3.5-5.1); Sodium 138 mmol/L (136-145); Total Protein 6.2 g/dL (6.4-8.2)
[2023-12-11 10:22] LABS: C-Reactive Protein < 0.50 mg/dL (<or=0.5)
[2023-12-11 10:33] LABS: Iron 30 ug/dL (50-170); Total Iron Binding Capacity 284 ug/dL (250-450); Transferrin Sat 11 % (15-50)
[2023-12-11 10:57] LABS: Vitamin D 25 Total 15.3 ng/mL (30-100)
[2023-12-11 11:00] LABS: Ferritin 58 ng/mL (8-252); Folate 14.2 ng/mL (8.6-20.0); Triglyceride 40 mg/dL (<150); Vitamin B12 441 pg/mL (193-986)
[2023-12-12 10:09] LABS: Prealbumin 13 mg/dL (20-40)
[2023-12-13 10:58] LABS: Copper, Serum 62 mcg/dL (77-206); Selenium, Serum 107 mcg/L (110-165)
[2023-12-13 12:07] LABS: Zinc, S 73 mcg/dL (60-106)
[2023-12-13 22:18] LABS: Chromium, Serum 0.3 ng/mL (<0.3)
[2023-12-14 16:15] LABS: Thiamine (Vitamin B1), WB 191 nmol/L (70-180)
[2023-12-15 09:19] LABS: Vitamin E, Serum 7.2 mg/L (5.5 - 17.0)
[2023-12-17 11:28] LABS: Manganese, Serum 0.5 ng/mL (0.5-1.2)
[2023-12-18] MEDS: Normal Saline Flush 10 ML SYR IVP (07:51)
== END 2023-12-23 23:59 | disposition home or self-care (01) ==
LOC: INF 02:08
PROVIDERS: PCP Nurse Practitioner Family; Visit Provider Internal Medicine Gastroenterology
DX: Z78.9 Other specified health status (principal); Z45.2 Encounter for adjustment and management of vascular access device; D50.9 Iron deficiency anemia, unspecified
CPT/HCPCS: 36592; 80053; 82306; 82525; 84630; 96365; 82495; 82607; 82728; 82746; 83540; 83550; 83735; 83785; 84100; 84134; 84255; 84425; 84446; 84478; 84590; 85025; 85610; 86140; J1756

== ENCOUNTER 2024-01-08 08:10 | Outpatient (RCR) | payer BC, SELFPAY ==
[2023-12-25] MEDS: IRON SUCROSE COMPLEX 200 MG in Normal Saline 100 ML 440 MG IVPB (07:50)
[2023-12-25] MEDS: Normal Saline Flush 10 ML SYR IVP (07:51)
[2024-01-01] MEDS: Normal Saline Flush 10 ML SYR IVP (09:47)
[2024-01-08] MEDS: Normal Saline Flush 10 ML SYR IVP (08:19)
[2024-01-08 08:36] LABS: Abs Immature Grans 0.01 10^3/uL (0.0-0.06); Absolute Basophil Count 0.08 10^3/uL (0.0-0.2); Absolute Eosinophil Count 0.34 10^3/uL (0.0-0.7); Absolute Lymphocyte Count 1.88 10^3/uL (1.2-3.4); Absolute Monocyte Count 0.51 10^3/uL (0.1-0.8); Absolute Neutrophil Count 1.64 10^3/uL (1.2-6.7); Basophils % 1.8 %; Eosinophils % 7.6 %; HCT 32.4 % (36.0-46.0); HGB 10.3 g/dL (11.2-15.7); Immature Grans % 0.2 %; Lymphocytes % 42.2 %; MCH 29.6 pg (27.0-33.0); MCHC 31.8 % (32.0-36.0); MCV 93 fL (80-95); MPV 10.8 fL (8.0-11.0); Monocytes % 11.4 %; Neutrophils % 36.8 %; Platelet Count 234 10^3/uL (130-400); RBC 3.48 10^6/uL (3.93-5.22); RDW 16.6 % (11.7-14.6); RDW-SD 56.2 fL; WBC 4.46 10^3/uL (4.4-10.8)
[2024-01-08 09:08] LABS: ALT 65 U/L (14-59); AST 33 U/L (15-37); Albumin 2.8 g/dL (3.4-5.0); Alkaline Phosphatase 156 U/L (46-116); Anion Gap 6.6 mmol/L (3-11); BUN 18 mg/dL (7-18); Bilirubin, Total 0.26 mg/dL (0.2-1.0); CO2 26.4 mmol/L (21.0-32.0); CREATININE 0.6 mg/dL (0.55-1.02); Calcium 8.8 mg/dL (8.5-10.1); Chloride 107 mmol/L (98-107); Estimated GFR 104.63 (mL/min/1.73m2); Glucose 99 mg/dL (74-106); Magnesium 1.8 mg/dL (1.8-2.4); PHOSPHORUS 3.9 mg/dL (2.6-4.7); Potassium 4.4 mmol/L (3.5-5.1); Sodium 140 mmol/L (136-145); Total Protein 6.5 g/dL (6.4-8.2)
[2024-01-08 09:11] LABS: C-Reactive Protein < 0.50 mg/dL (<or=0.5)
[2024-01-09 09:34] LABS: Prealbumin 17 mg/dL (20-40)
== END 2024-01-23 23:59 | disposition home or self-care (01) ==
LOC: INF 08:10
PROVIDERS: PCP Nurse Practitioner Family; Visit Provider Internal Medicine Gastroenterology
DX: Z78.9 Other specified health status (principal); D50.9 Iron deficiency anemia, unspecified
CPT/HCPCS: 36592; 80053; 96365; 96523; 83735; 84100; 84134; 85025; 86140; J1756

== ENCOUNTER 2024-01-16 09:09 | Outpatient (CLI) | payer BC, SELFPAY ==
--- NOTE | 2024-01-16 08:00 | DI.RAD_ITS ---
Exam(s) XR WRIST RT LIMITED EXAM: XR WRIST RT LIMITED CLINICAL HISTORY: S/P ORIF. TECHNIQUE: 2D digital imaging was performed. COMPARISON: CR XR WRIST RT LIMITED from 12/02/2023 FINDINGS: Two views-AP and lateral Volar fixation plate in the distal radius remains satisfactory position with no hardware loosening no r evidence of osteomyelitis. There is been further healing fracture site in the distal radius. Ulnar styloid fracture again noted . Scaphoid unremarkable. IMPRESSION: Satisfactory appearance DATA REPOSITORY: RADIATION DOSE DELIVERED:
== END 2024-01-16 09:10 | disposition home or self-care (01) ==
LOC: DIORS 09:09
PROVIDERS: PCP Nurse Practitioner Family; Visit Provider Student in an Organized Health Care Education/Training Program
DX: S52.611D Displaced fracture of right ulna styloid process, subsequent encounter for closed fracture with routine healing (principal); X58.XXXD Exposure to other specified factors, subsequent encounter
CPT/HCPCS: 73100

== ENCOUNTER 2024-02-13 02:50 | Outpatient (RCR) | payer BC, SELFPAY ==
[2024-02-05] MEDS: IRON SUCROSE COMPLEX 200 MG in Normal Saline 100 ML 440 MG IVPB (08:13)
[2024-02-05] MEDS: Normal Saline Flush 10 ML SYR IVP (08:15)
[2024-02-05 08:19] LABS: Abs Immature Grans 0.01 10^3/uL (0.0-0.06); Absolute Basophil Count 0.11 10^3/uL (0.0-0.2); Absolute Eosinophil Count 0.35 10^3/uL (0.0-0.7); Absolute Lymphocyte Count 1.86 10^3/uL (1.2-3.4); Absolute Monocyte Count 0.57 10^3/uL (0.1-0.8); Absolute Neutrophil Count 2.91 10^3/uL (1.2-6.7); Basophils % 1.9 %; HCT 32.6 % (36.0-46.0); HGB 10.5 g/dL (11.2-15.7); Immature Grans % 0.2 %; MCH 29.2 pg (27.0-33.0); MCHC 32.2 % (32.0-36.0); MCV 91 fL (80-95); MPV 10.8 fL (8.0-11.0); Monocytes % 9.8 %; Neutrophils % 50.1 %; Platelet Count 227 10^3/uL (130-400); RBC 3.59 10^6/uL (3.93-5.22); RDW 16.1 % (11.7-14.6); RDW-SD 53.8 fL; WBC 5.81 10^3/uL (4.4-10.8)
[2024-02-05 08:38] LABS: ALT 65 U/L (14-59); AST 34 U/L (15-37); Albumin 2.7 g/dL (3.4-5.0); Alkaline Phosphatase 157 U/L (46-116); Anion Gap 6.9 mmol/L (3-11); BUN 18 mg/dL (7-18); Bilirubin, Total 0.31 mg/dL (0.2-1.0); C-Reactive Protein < 0.50 mg/dL (<or=0.5); CO2 31.1 mmol/L (21.0-32.0); CREATININE 0.7 mg/dL (0.55-1.02); Calcium 8.7 mg/dL (8.5-10.1); Chloride 104 mmol/L (98-107); Estimated GFR 100.81 (mL/min/1.73m2); Glucose 119 mg/dL (74-106); Magnesium 2.1 mg/dL (1.8-2.4); PHOSPHORUS 3.6 mg/dL (2.6-4.7); Potassium 4.1 mmol/L (3.5-5.1); Sodium 142 mmol/L (136-145); Total Protein 6.4 g/dL (6.4-8.2)
[2024-02-06 09:39] LABS: Prealbumin 18 mg/dL (20-40)
[2024-02-06 18:51] LABS: Triglyceride 60 mg/dL (<150)
[2024-02-13] MEDS: Normal Saline Flush 10 ML SYR IVP (14:29)
== END 2024-02-22 23:59 | disposition home or self-care (01) ==
LOC: INF 02:50
PROVIDERS: PCP Nurse Practitioner Family; Visit Provider Internal Medicine Gastroenterology
DX: D50.9 Iron deficiency anemia, unspecified; Z45.2 Encounter for adjustment and management of vascular access device
CPT/HCPCS: 36592; 80053; 96365; 83735; 84100; 84134; 84478; 85025; 86140; J1756

== ENCOUNTER 2024-03-04 02:13 | Outpatient (RCR) | payer BC, SELFPAY ==
[2024-03-04] MEDS: IRON SUCROSE COMPLEX 200 MG in Normal Saline 100 ML 440 MG IVPB (08:21)
[2024-03-04] MEDS: Normal Saline Flush 10 ML SYR IVP (08:21)
[2024-03-04 08:33] LABS: Abs Immature Grans 0.01 10^3/uL (0.0-0.06); Absolute Basophil Count 0.11 10^3/uL (0.0-0.2); Absolute Eosinophil Count 0.36 10^3/uL (0.0-0.7); Absolute Lymphocyte Count 2.12 10^3/uL (1.2-3.4); Absolute Monocyte Count 0.58 10^3/uL (0.1-0.8); Absolute Neutrophil Count 1.73 10^3/uL (1.2-6.7); Basophils % 2.2 %; Eosinophils % 7.3 %; Immature Grans % 0.2 %; Lymphocytes % 43.2 %; MCH 29.6 pg (27.0-33.0); MCHC 32.4 % (32.0-36.0); MCV 92 fL (80-95); MPV 10.9 fL (8.0-11.0); Monocytes % 11.8 %; Neutrophils % 35.3 %; Platelet Count 216 10^3/uL (130-400); RBC 3.71 10^6/uL (3.93-5.22); RDW 16.5 % (11.7-14.6); RDW-SD 56.1 fL; WBC 4.91 10^3/uL (4.4-10.8)
[2024-03-04 08:48] LABS: ALT 59 U/L (14-59); AST 27 U/L (15-37); Albumin 2.9 g/dL (3.4-5.0); Alkaline Phosphatase 136 U/L (46-116); Anion Gap 9.8 mmol/L (3-11); BUN 23 mg/dL (7-18); Bilirubin, Total 0.22 mg/dL (0.2-1.0); C-Reactive Protein < 0.50 mg/dL (<or=0.5); CO2 27.2 mmol/L (21.0-32.0); CREATININE 0.7 mg/dL (0.55-1.02); Calcium 8.4 mg/dL (8.5-10.1); Chloride 106 mmol/L (98-107); Estimated GFR 100.81 (mL/min/1.73m2); Glucose 94 mg/dL (74-106); Magnesium 1.9 mg/dL (1.8-2.4); PHOSPHORUS 3.8 mg/dL (2.6-4.7); Potassium 4.2 mmol/L (3.5-5.1); Sodium 143 mmol/L (136-145); Total Protein 6.6 g/dL (6.4-8.2)
[2024-03-05 10:27] LABS: Prealbumin 17 mg/dL (20-40)
== END 2024-03-24 23:59 | disposition home or self-care (01) ==
LOC: INF 02:13
PROVIDERS: PCP Nurse Practitioner Family; Visit Provider Internal Medicine Gastroenterology
DX: D50.9 Iron deficiency anemia, unspecified (principal); Z78.9 Other specified health status; Z45.2 Encounter for adjustment and management of vascular access device
CPT/HCPCS: 36592; 80053; 96365; 83735; 84100; 84134; 85025; 86140; J1756

== ENCOUNTER 2024-04-08 02:46 | Outpatient (RCR) | payer BC, SELFPAY ==
[2024-04-08] MEDS: IRON SUCROSE COMPLEX 200 MG in Normal Saline 100 ML 440 MG IVPB (08:25)
[2024-04-08] MEDS: Normal Saline Flush 10 ML SYR IVP (08:25)
[2024-04-08 08:45] LABS: Absolute Basophil Count 0.11 10^3/uL (0.0-0.2); Absolute Eosinophil Count 0.41 10^3/uL (0.0-0.7); Absolute Lymphocyte Count 2.01 10^3/uL (1.2-3.4); Absolute Monocyte Count 0.51 10^3/uL (0.1-0.8); Absolute Neutrophil Count 1.93 10^3/uL (1.2-6.7); Basophils % 2.2 %; Eosinophils % 8.2 %; HCT 35.4 % (36.0-46.0); HGB 11.6 g/dL (11.2-15.7); Lymphocytes % 40.4 %; MCHC 32.8 % (32.0-36.0); MCV 92 fL (80-95); MPV 10.9 fL (8.0-11.0); Monocytes % 10.3 %; Neutrophils % 38.9 %; Platelet Count 213 10^3/uL (130-400); RBC 3.87 10^6/uL (3.93-5.22); RDW 15.3 % (11.7-14.6); RDW-SD 51.8 fL; WBC 4.97 10^3/uL (4.4-10.8)
[2024-04-08 09:03] LABS: ALT 45 U/L (14-59); AST 26 U/L (15-37); Albumin 2.8 g/dL (3.4-5.0); Alkaline Phosphatase 130 U/L (46-116); Anion Gap 5.7 mmol/L (3-11); BUN 16 mg/dL (7-18); Bilirubin, Total 0.33 mg/dL (0.2-1.0); C-Reactive Protein < 0.50 mg/dL (<or=0.5); CO2 28.3 mmol/L (21.0-32.0); CREATININE 0.6 mg/dL (0.55-1.02); Calcium 8.8 mg/dL (8.5-10.1); Chloride 106 mmol/L (98-107); Estimated GFR 104.63 (mL/min/1.73m2); Glucose 102 mg/dL (74-106); PHOSPHORUS 3.5 mg/dL (2.6-4.7); Potassium 4.3 mmol/L (3.5-5.1); Sodium 140 mmol/L (136-145); Total Protein 6.4 g/dL (6.4-8.2)
[2024-04-09 07:59] LABS: Prealbumin 16 mg/dL (20-40)
== END 2024-04-24 23:59 | disposition home or self-care (01) ==
LOC: INF 02:46
PROVIDERS: PCP Nurse Practitioner Family; Visit Provider Internal Medicine Gastroenterology
DX: D50.9 Iron deficiency anemia, unspecified
CPT/HCPCS: 36592; 80053; 96365; 83735; 84100; 84134; 85025; 86140; J1756

== ENCOUNTER 2024-04-26 11:28 | Inpatient (IN) | payer BC, SELFPAY ==
[2024-04-26] VITALS (55 sets, daily range): BP systolic 70–96; BP diastolic 43–64; PULSE 72–143; RESP 15–44; TEMP 37–37.6; O2SAT 1–98
--- NOTE | 2024-04-26 11:30 | RT.EKG_ITS ---
APPROVED REPORT Exam: Resting ECG Reason for Exam: rapid heart rate, sob Patient Location: E HR:135 bpm ECG Measurements Heart Rate 135 AXIS SD 145 P 66 QRSd 76 QRS 113 QT 287 T 54 QTc 431 Conclusion Sinus tachycardia...rate> 99 Atrial premature complex...SV complex w/ short R-R interval Low voltage with right axis deviation...low voltage, RAD Borderline ST depression, anterolateral leads...ST <-0.07mV, I aVL V2-V6
--- NOTE | 2024-04-26 11:45 | DI.CT_ITS ---
Exam(s) CT CHEST PE CTA EXAM: CT CHEST PE CTA CLINICAL HISTORY: dyspnea, tachycardia. TECHNIQUE: Imaging Protocol: Axial CT angiography was performed with multi-slice acquisition and mu lti-planar and/or 3D reconstructions. Lung Computer Aided Detection (CAD) was utilized. CONTRAST MATERIAL: Intravenous: Omnipaque 350 contrast volume:80 mL COMPARISON: CT CT CHEST/ABD/PEL W from 01/04/2023 FINDINGS: Tracheobronchial tree: Patent where visualized. No bronchiectasis. Pulmonary parenchyma: No consolidation or dominant measurable mass. There is mild scarring in the rig ht upper lobe. There is dependent atelectasis in the lung bases. Pulmonary Arteries: No evidence of filling defect to suggest pulmonary emboli. Mediastinum and Marlen: No dominant adenopathy or fluid collection. The esophagus is unremarkable. Visualized thyroid gland: Unremarkable. Pleura: No effusion or pneumothorax. Heart: The heart is not dilated. Coronary artery calcification is present. No pericardial effusion. Aorta: Thoracic aorta non-dilated. No evidence of dissection. Upper abdomen: Status post cholecystectomy. Soft tissues: Unremarkable. Bones: Within normal limits for the patient's age.There is an old L1 vertebral body fracture which is unchanged. IMPRESSION: No evidence of pulmonary embolism, thoracic aortic dissection or aneurysm. RADIATION DOSE DELIVERED: Total DLP DATA REPOSITORY: All CT scans at this facility are submitted to the National Radiology Data Registry (NRDR) Dose Index Registry (DIR) with the [employer] (A[employer]). RADIATION OPTIMIZATION: All CT scans at this facility use at least one of these dose optimization te chniques: automated exposure control; mA and/or kV adjustment per patient size (includes targeted exa ms where dose is matched to clinical indication); or iterative reconstruction.
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
[2024-04-26 12:16] LABS: Abs Immature Grans 0.02 10^3/uL (0.0-0.06); HCT 35.9 % (36.0-46.0); HGB 11.8 g/dL (11.2-15.7); MCH 30.2 pg (27.0-33.0); MCHC 32.9 % (32.0-36.0); MCV 92 fL (80-95); MPV 10.7 fL (8.0-11.0); Platelet Count 149 10^3/uL (130-400); RBC 3.91 10^6/uL (3.93-5.22); RDW 15.8 % (11.7-14.6); RDW-SD 53.1 fL; WBC 3.27 10^3/uL (4.4-10.8)
[2024-04-26 12:19] LABS: Lactate 6.1 mmol/L (<or=2.0)
[2024-04-26] MEDS: Pantoprazole 40 MG VIAL IVP (12:26)
[2024-04-26] MEDS: ACETAMINOPHEN 1,000 MG/100 ML BAG 400 MG IVPB (12:26)
[2024-04-26] MEDS: Normal Saline 1,000 ML 1000 ML IV (12:26)
[2024-04-26] MEDS: Dexamethasone 10 MG/ML VIAL IVP (12:26)
[2024-04-26] MEDS: Albuterol/Ipratropium 3 ML UPD VIAL UPD (12:27)
[2024-04-26 12:28] LABS: PTT Activated 26.5 sec (20.6-30.2); Prothrombin Time 13.3 sec (9.1-11.1)
[2024-04-26 12:50] LABS: Absolute Lymphocyte Count 0.26 10^3/uL (1.2-3.4); Absolute Monocyte Count 0.03 10^3/uL (0.1-0.8); Absolute Neutrophil Count 2.88 10^3/uL (1.2-6.7); Atypical Lymphocytes % 0 %; Bands % 0 %
[2024-04-26 12:52] LABS: COVID-19 PCR Negative (Negative); Influenza A PCR Negative (Negative); Influenza B PCR Negative (Negative)
[2024-04-26 12:52] LABS: Diff Comment Manual Differential
[2024-04-26 12:53] LABS: INR 1.3 (0.9-1.1); Procalcitonin < 0.10 ng/mL
[2024-04-26 12:54] LABS: RSV PCR Positive (Negative); Source Nasopharynx
[2024-04-26 13:13] LABS: ALT 58 U/L (14-59); AST 37 U/L (15-37); Albumin 2.8 g/dL (3.4-5.0); Alkaline Phosphatase 192 U/L (46-116); Anion Gap 16.8 mmol/L (3-11); BUN 17 mg/dL (7-18); Bilirubin, Total 0.85 mg/dL (0.2-1.0); CO2 18.2 mmol/L (21.0-32.0); CREATININE 0.9 mg/dL (0.55-1.02); Calcium 8.8 mg/dL (8.5-10.1); Chloride 103 mmol/L (98-107); Estimated GFR 74.57 (mL/min/1.73m2); Glucose 129 mg/dL (74-106); Magnesium 1.4 mg/dL (1.8-2.4); NT-proBNP 254 pg/mL (<300); Potassium 3.4 mmol/L (3.5-5.1); Sodium 138 mmol/L (136-145); TSH (W/Ref FT4) 1.45 uIU/mL (0.36-3.74); Total Protein 6.5 g/dL (6.4-8.2)
[2024-04-26 13:21] LABS: Troponin I 439 ng/L (<or=51)
--- NOTE | 2024-04-26 13:22 | NUR.NOTE ---
Nursing Note: provider notified of critical lab trop 439.
[2024-04-26 13:44] LABS: Lactate 3.1 mmol/L (<or=2.0)
[2024-04-26] MEDS: Normal Saline - Diluent 50 ML VIAL IJ (13:51)
[2024-04-26] MEDS: Omnipaque 350 MG/ML 100 ML BTL IJ ×2 (13:52→13:53)
--- NOTE | 2024-04-26 14:00 | RT.EKG_ITS ---
APPROVED REPORT Exam: Resting ECG Reason for Exam: elevated troponin Patient Location: E HR:98 bpm ECG Measurements Heart Rate 98 AXIS NJ 158 P 56 QRSd 87 QRS 73 QT 341 T 51 QTc 436 Conclusion Sinus rhythm...normal P axis, V-rate 60- 99
[2024-04-26 14:03] LABS: Troponin I 1847 ng/L (<or=51)
[2024-04-26] MEDS: POTASSIUM CHLORIDE 10 MEQ/100 ML BAG 100 MEQ IV_INF (14:05)
[2024-04-26] MEDS: MAGNESIUM SULFATE 1 GM/100 ML BAG IV_INF (14:06)
[2024-04-26] MEDS: Aspirin 81 MG CHEW 324 MG CH (14:09)
--- NOTE | 2024-04-26 14:32 | DI.VRAD_ITS ---
PROCEDURE INFORMATION: Exam: CTA Chest With Contrast Exam date and time: 04/26/2024 1:48 PM Age: 58 years old Clinical indication: Other: Dyspnea, tachycardia TECHNIQUE: Imaging protocol: Computed tomographic angiography of the chest with contrast. Exam focused on the arteries. 3D rendering (Not supervised by radiologist): MIP and/or 3D reconstructed images were created by the technologist. Radiation optimization: All CT scans at this facility use at least one of these dose optimization techniques: automated exposure control; mA and/or kV adjustment per patient size (includes targeted exams where dose is matched to clinical indication); or iterative reconstruction. Contrast material: OMNIPAQUE 350; Contrast volume: 80 ml; Contrast route: INTRAVENOUS (IV); COMPARISON: CT CHEST/ABD/PEL W 01/04/2023 10:42 AM FINDINGS: Pulmonary arteries: Normal. No pulmonary emboli. Aorta: Unremarkable. No aortic aneurysm. No aortic dissection. Lungs: Unremarkable. No consolidation. No masses. Pleural spaces: Unremarkable. No pneumothorax. No pleural effusion. Heart: Unremarkable. No cardiomegaly. No pericardial effusion. Lymph nodes: Unremarkable. No enlarged lymph nodes. Bones/joints: Unremarkable. No acute fracture. Soft tissues: Unremarkable. IMPRESSION: No acute findings. No pulmonary embolus. Dictated and Authenticated by: Edvin Giron MD. Orderin David Alcantara MD
[2024-04-26 14:59] LABS: Bilirubin Negative (Negative); Blood Trace-lysed (Negative); Clarity Clear (Clear); Glucose Negative (Negative); Ketones Negative (Negative); Leukocyte Esterase Negative (Negative); Nitrite Negative (Negative); Specific Gravity 1.015 (1.005-1.025); Urobilinogen 0.2 mg/dL (Up to 0.2); pH 5.5 (5-8)
[2024-04-26 15:00] LABS: ESR 33 mm/hr (0-30)
[2024-04-26 15:05] LABS: Bacteria Negative HPF (Negative); C & S Indicated? No; Crystals Negative HPF (Negative); Epithelial Cells Rare HPF (Negative); Mucus Trace (Negative); RBC 0-2 HPF (0-2); WBC Negative HPF (0-5)
[2024-04-26 15:09] LABS: C-Reactive Protein 13.03 mg/dL (<or=0.5)
[2024-04-26] MEDS: Atorvastatin 40 MG TAB 80 MG PO (15:15)
[2024-04-26] MEDS: Enoxaparin 60 MG/0.6 ML SYR 68 MG SC (15:15)
[2024-04-26 15:18] LABS: Troponin I 2052 ng/L (<or=51)
[2024-04-26 15:29] LABS: Lab Add On Test DONE
[2024-04-26 15:41] LABS: Calculated LDL 31 mg/dL (<100); Cholesterol 65 mg/dL (<200); HDL Cholesterol 20 mg/dL (40-60); Triglyceride 72 mg/dL (<150)
[2024-04-26] MEDS: Creon, Lipase 6,000 CAPCR 2 CAP PO (15:46)
[2024-04-26 15:52] LABS: Hemoglobin A1C 4.8 % (<5.7)
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
[2024-04-26] MEDS: cefTRIAXone 2 GM/50 ML BAG IVPB (17:05)
[2024-04-26] MEDS: DOXYCYCLINE 100 MG in Normal Saline 100 ML IVPB (18:29)
[2024-04-26] MEDS: Lactated Ringers 1,000 ML 100 ML IV (19:39)
--- NOTE | 2024-04-26 19:52 | W.PC.ACHO ---
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 RR 44 in triage. concerned for sepsis at home Medical / Surgical History (Last Reviewed 10/23/23 @ 12:58 by Gregorio Alves MD) Vascular catheter infection Bacteremia DVT (deep venous thrombosis) Hypoalbuminemia Hypocalcemia Hyperglycemia LOGAN (acute kidney injury) Hyponatremia Pharyngitis Anemia Neutropenic fever Hx of blood clots Intestinal volvulus Diabetes Cardiac murmur Lactic acidosis (Last Reviewed 10/23/23 @ 12:58 by Gregorio Alves MD) Hx of appendectomy S/P cholecystectomy Incarcerated hernia History of hysterectomy Tibial plateau fracture (10/30/18) Most Recent Vital Signs Temperature 37.6 C H 04/26/24 11:50 Pulse 83 04/26/24 19:30 Pulse 82 04/26/24 19:30 Respiratory Rate 22 04/26/24 19:30 Respiratory Effort Normal, Short of Breath, Labored 04/26/24 12:29 Respiratory Depth Shallow 04/26/24 12:29 Blood Pressure 96/53 L 04/26/24 19:30 Blood Pressure Mean 56 04/26/24 16:45 Pulse Oximetry 92 04/26/24 19:30 Oxygen Delivery Method Nasal Cannula 04/26/24 12:27 Oxygen Flow Rate 0 04/26/24 11:37 Pain Level 0 04/26/24 11:50 Allergies amoxicillin Allergy (Severe, Verified 04/26/24 11:43) anaphylasis latex Allergy (Intermediate, Verified 04/26/24 11:43) Hives exenatide (From [place]) Adverse Reaction (Severe, Verified 04/26/24 11:43) Nausea adhesive tape Adverse Reaction (Verified 04/26/24 11:43) Skin Rash codeine Adverse Reaction (Verified 04/26/24 11:43) Nausea morphine Adverse Reaction (Verified 04/26/24 11:43) Nausea Precautions Isolation PUI 04/26/24 12:29 Active Medications Generic Name Dose Route Start Last Admin Trade Name Freq PRN Reason Stop Dose Admin Doxycycline Hyclate 100 mg/ 100 mls @ 100 mls/hr 04/26/24 16:30 04/26/24 19:39 Sodium Chloride IVPB Infused Q12H AMITA Infusion Ringer's Solution 1,000 mls @ 100 mls/hr 04/26/24 17:00 04/26/24 19:39 IV 100 mls/hr INFUSION AMITA Administration Iohexol 100 ml 04/26/24 14:00 04/26/24 13:53 Omnipaque 350 Mg/Ml 100 Ml Btl IJ 05/26/24 23:59 80 ml DIRECTED AMITA Administration Sodium Chloride 50 ml 04/26/24 14:00 04/26/24 13:51 Normal Saline - Diluent 50 Ml Vial IJ 50 ml .FOR DI USE AMITA Administration IV IV Catheter Type [Left diffusic Antecubital] IV Catheter Type [Left Port-a-cath (single) Subclavian Proximal Port] IV Catheter Gauge [Left 20 Antecubital] Diagnostics 04/26/24 04/26/24 04/26/24 Range/Units 20:00 16:27 14:57 WBC (4.4-10.8) 10^3/uL RBC (3.93-5.22) 10^6/uL Hgb (11.2-15.7) g/dL Hct (36.0-46.0) % MCV (80-95) fL MCH (27.0-33.0) pg MCHC (32.0-36.0) % RDW (11.7-14.6) % Plt Count (130-400) 10^3/uL MPV (8.0-11.0) fL Immature Gran % % Neutrophils % % Band Neutrophils % % Lymphocytes % % Atypical Lymphs % % Monocytes % % Eosinophils % % Basophils % % Nucleated RBC % (0.0-0.3) % Absolute Neutrophils (1.2-6.7) 10^3/uL Absolute Lymphocytes (1.2-3.4) 10^3/uL Absolute Monocytes (0.1-0.8) 10^3/uL Absolute Eosinophils (0.0-0.7) 10^3/uL Absolute Basophils (0.0-0.2) 10^3/uL ESR (0-30) mm/hr PT (9.1-11.1) sec INR (0.9-1.1) APTT (20.6-30.2) sec VBG Lactate Pending (<or=2.0) mmol/L Sodium Pending (136-145) mmol/L Potassium Pending (3.5-5.1) mmol/L Chloride Pending (98-107) mmol/L Carbon Dioxide Pending (21.0-32.0) mmol/L Anion Gap Pending (3-11) mmol/L BUN Pending (7-18) mg/dL Creatinine Pending (0.55-1.02) mg/dL Est GFR (CKD-EPI 2020) Pending (mL/min/1.73m2) Glucose Pending (74-106) mg/dL Hemoglobin A1c (<5.7) % Calcium Pending (8.5-10.1) mg/dL Magnesium (1.8-2.4) mg/dL Total Bilirubin (0.2-1.0) mg/dL AST (15-37) U/L ALT (14-59) U/L Alkaline Phosphatase (46-116) U/L Troponin I Pending (<or=51) ng/L C-Reactive Protein (<or=0.5) mg/dL NT-Pro-B Natriuret Pep (<300) pg/mL Total Protein (6.4-8.2) g/dL Albumin (3.4-5.0) g/dL Triglycerides (<150) mg/dL Total Cholesterol (<200) mg/dL LDL Cholesterol, Calc (<100) mg/dL HDL Cholesterol (40-60) mg/dL Procalcitonin ng/mL TSH (0.36-3.74) uIU/mL Urine Color (Yellow) Urine Clarity (Clear) Urine pH (5-8) Ur Specific [place] (1.005-1.025) Urine Protein (Neg-Trace) mg/dL Urine Ketones (Negative) mg/dL Urine Blood (Negative) Urine Nitrite (Negative) Urine Bilirubin (Negative) Urine Urobilinogen (Up to 0.2) mg/dL Ur Leukocyte Esterase (Negative) Urine RBC (0-2) HPF Urine WBC (0-5) HPF Ur Epithelial Cells (Negative) HPF Urine Crystals (Negative) HPF Urine Bacteria (Negative) HPF Urine Mucus (Negative) Ur Culture Indicated? Urine Glucose (Negative) mg/dL COVID-19 Source SARS-CoV-2 (PCR) (Negative) Influenza Type A (PCR) (Negative) Influenza Type B (PCR) (Negative) RSV (PCR) (Negative) Add-On Test Request DONE 04/26/24 04/26/24 04/26/24 Range/Units 14:53 14:50 13:37 WBC (4.4-10.8) 10^3/uL RBC (3.93-5.22) 10^6/uL Hgb (11.2-15.7) g/dL Hct (36.0-46.0) % MCV (80-95) fL MCH (27.0-33.0) pg MCHC (32.0-36.0) % RDW (11.7-14.6) % Plt Count (130-400) 10^3/uL MPV (8.0-11.0) fL Immature Gran % % Neutrophils % % Band Neutrophils % % Lymphocytes % % Atypical Lymphs % % Monocytes % % Eosinophils % % Basophils % % Nucleated RBC % (0.0-0.3) % Absolute Neutrophils (1.2-6.7) 10^3/uL Absolute Lymphocytes (1.2-3.4) 10^3/uL Absolute Monocytes (0.1-0.8) 10^3/uL Absolute Eosinophils (0.0-0.7) 10^3/uL Absolute Basophils (0.0-0.2) 10^3/uL ESR (0-30) mm/hr PT (9.1-11.1) sec INR (0.9-1.1) APTT (20.6-30.2) sec VBG Lactate 3.1 H* (<or=2.0) mmol/L Sodium (136-145) mmol/L Potassium (3.5-5.1) mmol/L Chloride (98-107) mmol/L Carbon Dioxide (21.0-32.0) mmol/L Anion Gap (3-11) mmol/L BUN (7-18) mg/dL Creatinine (0.55-1.02) mg/dL Est GFR (CKD-EPI 2020) (mL/min/1.73m2) Glucose (74-106) mg/dL Hemoglobin A1c (<5.7) % Calcium (8.5-10.1) mg/dL Magnesium (1.8-2.4) mg/dL Total Bilirubin (0.2-1.0) mg/dL AST (15-37) U/L ALT (14-59) U/L Alkaline Phosphatase (46-116) U/L Troponin I 2052 H* 1847 H* (<or=51) ng/L C-Reactive Protein 13.03 H (<or=0.5) mg/dL NT-Pro-B Natriuret Pep (<300) pg/mL Total Protein (6.4-8.2) g/dL Albumin (3.4-5.0) g/dL Triglycerides 72 (<150) mg/dL Total Cholesterol 65 (<200) mg/dL LDL Cholesterol, Calc 31 (<100) mg/dL HDL Cholesterol 20 L (40-60) mg/dL Procalcitonin ng/mL TSH (0.36-3.74) uIU/mL Urine Color Yellow (Yellow) Urine Clarity Clear (Clear) Urine pH 5.5 (5-8) Ur Specific [place] 1.015 (1.005-1.025) Urine Protein 100 H (Neg-Trace) mg/dL Urine Ketones Negative (Negative) mg/dL Urine Blood Trace-lysed H (Negative) Urine Nitrite Negative (Negative) Urine Bilirubin Negative (Negative) Urine Urobilinogen 0.2 (Up to 0.2) mg/dL Ur Leukocyte Esterase Negative (Negative) Urine RBC 0-2 (0-2) HPF Urine WBC Negative (0-5) HPF Ur Epithelial Cells Rare (Negative) HPF Urine Crystals Negative (Negative) HPF Urine Bacteria Negative (Negative) HPF Urine Mucus Trace (Negative) Ur Culture Indicated? No Urine Glucose Negative (Negative) mg/dL COVID-19 Source SARS-CoV-2 (PCR) (Negative) Influenza Type A (PCR) (Negative) Influenza Type B (PCR) (Negative) RSV (PCR) (Negative) Add-On Test Request 04/26/24 04/26/24 Range/Units 12:02 11:58 WBC 3.27 L (4.4-10.8) 10^3/uL RBC 3.91 L (3.93-5.22) 10^6/uL Hgb 11.8 (11.2-15.7) g/dL Hct 35.9 L (36.0-46.0) % MCV 92 (80-95) fL MCH 30.2 (27.0-33.0) pg MCHC 32.9 (32.0-36.0) % RDW 15.8 H (11.7-14.6) % Plt Count 149 (130-400) 10^3/uL MPV 10.7 (8.0-11.0) fL Immature Gran % 0.0 % Neutrophils % 88.0 % Band Neutrophils % 0 % Lymphocytes % 8.0 % Atypical Lymphs % 0 % Monocytes % 1.0 % Eosinophils % 3.0 % Basophils % 0.0 % Nucleated RBC % 0.0 (0.0-0.3) % Absolute Neutrophils 2.88 (1.2-6.7) 10^3/uL Absolute Lymphocytes 0.26 L (1.2-3.4) 10^3/uL Absolute Monocytes 0.03 L (0.1-0.8) 10^3/uL Absolute Eosinophils 0.10 (0.0-0.7) 10^3/uL Absolute Basophils 0.00 (0.0-0.2) 10^3/uL ESR 33 H (0-30) mm/hr PT 13.3 H (9.1-11.1) sec INR 1.3 H (0.9-1.1) APTT 26.5 (20.6-30.2) sec VBG Lactate 6.1 H* (<or=2.0) mmol/L Sodium 138 (136-145) mmol/L Potassium 3.4 L (3.5-5.1) mmol/L Chloride 103 (98-107) mmol/L Carbon Dioxide 18.2 L (21.0-32.0) mmol/L Anion Gap 16.8 H (3-11) mmol/L BUN 17 (7-18) mg/dL Creatinine 0.9 (0.55-1.02) mg/dL Est GFR (CKD-EPI 2020) 74.57 (mL/min/1.73m2) Glucose 129 H (74-106) mg/dL Hemoglobin A1c 4.8 (<5.7) % Calcium 8.8 (8.5-10.1) mg/dL Magnesium 1.4 L (1.8-2.4) mg/dL Total Bilirubin 0.85 (0.2-1.0) mg/dL AST 37 (15-37) U/L ALT 58 (14-59) U/L Alkaline Phosphatase 192 H (46-116) U/L Troponin I 439 H* (<or=51) ng/L C-Reactive Protein (<or=0.5) mg/dL NT-Pro-B Natriuret Pep 254 (<300) pg/mL Total Protein 6.5 (6.4-8.2) g/dL Albumin 2.8 L (3.4-5.0) g/dL Triglycerides (<150) mg/dL Total Cholesterol (<200) mg/dL LDL Cholesterol, Calc (<100) mg/dL HDL Cholesterol (40-60) mg/dL Procalcitonin < 0.10 ng/mL TSH 1.45 (0.36-3.74) uIU/mL Urine Color (Yellow) Urine Clarity (Clear) Urine pH (5-8) Ur Specific [place] (1.005-1.025) Urine Protein (Neg-Trace) mg/dL Urine Ketones (Negative) mg/dL Urine Blood (Negative) Urine Nitrite (Negative) Urine Bilirubin (Negative) Urine Urobilinogen (Up to 0.2) mg/dL Ur Leukocyte Esterase (Negative) Urine RBC (0-2) HPF Urine WBC (0-5) HPF Ur Epithelial Cells (Negative) HPF Urine Crystals (Negative) HPF Urine Bacteria (Negative) HPF Urine Mucus (Negative) Ur Culture Indicated? Urine Glucose (Negative) mg/dL COVID-19 Source Nasopharynx SARS-CoV-2 (PCR) Negative (Negative) Influenza Type A (PCR) Negative (Negative) Influenza Type B (PCR) Negative (Negative) RSV (PCR) Positive A* (Negative) Add-On Test Request 04/26/24 11:58 Blood Culture - Preliminary Blood Gram negative jessenia 04/26/24 12:30 Blood Culture - Pending Blood Intake and Output - 24 Hour Total 04/26/24 11:28 thru 04/26/24 19:39 Intake Total 1520 Balance 1520 Weight 68.039 kg Intake: IV 1520 Falls Risk Assessment History of Falls No History 04/26/24 12:29 Contributing Factors No Factors 04/26/24 12:29 Ambulatory Aids Independent 04/26/24 12:29 Tubes/Lines None 04/26/24 12:29 Gait Evaluation No gait disturbance 04/26/24 12:29 Cognition No cognitive impairment 04/26/24 12:29 Fall Total Score 0 04/26/24 12:29 Level of Risk Standard/Low Risk 04/26/24 12:29 Problems (Last Reviewed 10/23/23 @ 12:58 by Gregorio Alves MD) Hypomagnesemia (Acute) Hypokalemia (Acute) Severe sepsis (Acute) Acute hypoxic respiratory failure (Acute) Respiratory syncytial virus (RSV) infection (Acute) Elevated troponin (Acute) Short gut syndrome (Acute) Hypothyroid (Chronic) Notes 04/26/24 13:22 Nursing Notes by Christelle Souza Nursing Note: provider notified of critical lab trop 439. Initialized on 04/26/24 13:22 - END OF NOTE v v v v v v v v v Sending and/or Receiving Nurses: Please use comment section below to note any information pertinent to the patient hand-off not included above. Information / Comments: No further questions. Report received from: ЕЛЕНА Bourgeois
[2024-04-26 20:17] LABS: Anion Gap 12.8 mmol/L (3-11); BUN 10 mg/dL (7-18); CO2 19.2 mmol/L (21.0-32.0); CREATININE 0.8 mg/dL (0.55-1.02); Calcium 8.3 mg/dL (8.5-10.1); Chloride 108 mmol/L (98-107); Estimated GFR 85.89 (mL/min/1.73m2); Glucose 215 mg/dL (74-106); Potassium 3.5 mmol/L (3.5-5.1); Sodium 140 mmol/L (136-145)
[2024-04-26 20:28] LABS: Troponin I 1503 ng/L (<or=51)
[2024-04-26] MEDS: Pantoprazole 40 MG TABCR PO (21:07)
[2024-04-26] MEDS: Magnesium Chloride 64 MG TABCR PO (21:07)
[2024-04-26] MEDS: Acetaminophen 500 MG TAB 1000 MG PO (21:07)
[2024-04-26] MEDS: CEFEPIME 2 GM in Normal Saline 100 ML IVPB (21:07)
[2024-04-26] MEDS: Normal Saline Flush 10 ML SYR IVP (21:17)
[2024-04-27 00:25] VITALS: BP 94/60; PULSE 76; RESP 15; TEMP 36.6; O2SAT 97
[2024-04-27 02:18] LABS: Lactate 2.8 mmol/L (<or=2.0)
[2024-04-27 03:49] VITALS: BP 90/60; PULSE 59; RESP 18; TEMP 36.5; O2SAT 97
[2024-04-27] MEDS: CEFEPIME 2 GM in Normal Saline 100 ML IVPB ×2 (04:19→12:33)
[2024-04-27] MEDS: Enoxaparin 80 MG/0.8 ML SYR 70 MG SC (05:12)
[2024-04-27] MEDS: Lactated Ringers 1,000 ML 150 ML IV ×2 (05:14→14:08)
[2024-04-27] MEDS: DOXYCYCLINE 100 MG in Normal Saline 100 ML IVPB (05:23)
[2024-04-27 07:03] LABS: Abs Immature Grans 0.05 10^3/uL (0.0-0.06); HCT 28.3 % (36.0-46.0); HGB 9.4 g/dL (11.2-15.7); MCH 29.8 pg (27.0-33.0); MCHC 33.2 % (32.0-36.0); MCV 90 fL (80-95); MPV 12.3 fL (8.0-11.0); Platelet Count 116 10^3/uL (130-400); RBC 3.15 10^6/uL (3.93-5.22); RDW 15.3 % (11.7-14.6); RDW-SD 49.9 fL; WBC 9.29 10^3/uL (4.4-10.8)
[2024-04-27 07:25] VITALS: BP 89/60; PULSE 63; RESP 16; TEMP 36.9; O2SAT 97
[2024-04-27 07:32] LABS: Absolute Lymphocyte Count 0.46 10^3/uL (1.2-3.4); Absolute Monocyte Count 0.65 10^3/uL (0.1-0.8); Absolute Neutrophil Count 8.18 10^3/uL (1.2-6.7); Bands % 1 %; Diff Comment Manual Differential; RBC Morphology Normal
[2024-04-27 07:34] LABS: Troponin I 880 ng/L (<or=51)
[2024-04-27] MEDS: Normal Saline Flush 10 ML SYR IVP ×5 (08:08→14:07)
[2024-04-27 08:16] LABS: Lactate 1.6 mmol/L (<or=2.0)
[2024-04-27 08:31] VITALS: BP 91/64; PULSE 56
[2024-04-27] MEDS: Potassium Chloride 20 MEQ TABCR PO ×2 (08:33→14:07)
[2024-04-27] MEDS: Creon, Lipase 24,000 CAPCR 2 CAP PO ×2 (08:33→12:33)
[2024-04-27] MEDS: Magnesium Chloride 64 MG TABCR PO (08:33)
[2024-04-27] MEDS: Multivitamin TAB 1 TAB PO (08:33)
[2024-04-27] MEDS: Aspirin E.C. 81 MG TABEC PO (08:33)
[2024-04-27] MEDS: Acetaminophen 500 MG TAB 1000 MG PO ×2 (08:33→14:07)
[2024-04-27] MEDS: Pantoprazole 40 MG TABCR PO (08:34)
[2024-04-27] MEDS: Budesonide/Formoterol 160/4.5 6 GM 60 PUFF INH IH (09:04)
--- NOTE | 2024-04-27 10:40 | PGE_ITS ---
Date of Service Date of service: 04/27/24 Time of Service: 10:40 Assessment and Plan Assessment and plan (1) Severe sepsis: Status: Acute Assessment and plan: meets criteria for severe sepsis with tachycardia and tachypnea, lactic 6.1 down to 3.1 with source respiratory will treat with Ceftriaxone 2 gm IV and doxycycline 100 mg BID continue to trend lactic acid received IV bolus, continue hydration. (2) Elevated troponin: Status: Acute Assessment and plan: no acute ischemic EKG changes, troponin continues to climb. in setting of acute hypoxic resp failure no chest pain discussed with [facility] cardiology, recommendations for echo in the am LDL 31, below 70 target A1C 4.8 troponin climbing 439 to 1847 to 2051, continue to trend EKG with troponin lovenox 70 mg sq Q12H asa load in ED 324 mg orally (3) Acute hypoxic respiratory failure: Status: Acute Assessment and plan: secondary to RSV (4) Respiratory syncytial virus (RSV) infection: Status: Acute Assessment and plan: wean oxygen as able. (5) Hypothyroid: Status: Chronic Assessment and plan: TSH 1.45 continue home levothyroxine (6) Hypokalemia: Status: Acute Assessment and plan: replete and follow (7) Hypomagnesemia: Status: Acute Assessment and plan: replete and follow (8) Short gut syndrome: Status: Acute Assessment and plan: Continue TPN per home protocol Takes Creon 3 times daily continue Continue home supplementation Objective Last Vital Signs Temp 36.9 C 04/27/24 07:25 Pulse 56 L 04/27/24 08:31 Resp 16 04/27/24 07:25 BP 91/64 L 04/27/24 08:31 Pulse Ox 97 04/27/24 07:25 Laboratory Results - last 24 hr 04/26/24 04/26/24 04/26/24 11:58 12:02 13:37 WBC 3.27 L RBC 3.91 L Hgb 11.8 Hct 35.9 L MCV 92 MCH 30.2 MCHC 32.9 RDW 15.8 H Plt Count 149 MPV 10.7 Immature Gran % 0.0 Neutrophils % 88.0 Band Neutrophils % 0 Lymphocytes % 8.0 Atypical Lymphs % 0 Monocytes % 1.0 Eosinophils % 3.0 Basophils % 0.0 Nucleated RBC % 0.0 Absolute Neutrophils 2.88 Absolute Lymphocytes 0.26 L Absolute Monocytes 0.03 L Absolute Eosinophils 0.10 Absolute Basophils 0.00 RBC Morphology ESR 33 H PT 13.3 H INR 1.3 H APTT 26.5 VBG Lactate 6.1 H* 3.1 H* Sodium 138 Potassium 3.4 L Chloride 103 Carbon Dioxide 18.2 L Anion Gap 16.8 H BUN 17 Creatinine 0.9 Est GFR (CKD-EPI 2020) 74.57 Glucose 129 H Hemoglobin A1c 4.8 Calcium 8.8 Magnesium 1.4 L Total Bilirubin 0.85 AST 37 ALT 58 Alkaline Phosphatase 192 H Troponin I 439 H* 1847 H* C-Reactive Protein NT-Pro-B Natriuret Pep 254 Total Protein 6.5 Albumin 2.8 L Triglycerides Total Cholesterol LDL Cholesterol, Calc HDL Cholesterol Procalcitonin < 0.10 TSH 1.45 Urine Color Urine Clarity Urine pH Ur Specific [place] Urine Protein Urine Ketones Urine Blood Urine Nitrite Urine Bilirubin Urine Urobilinogen Ur Leukocyte Esterase Urine RBC Urine WBC Ur Epithelial Cells Urine Crystals Urine Bacteria Urine Mucus Ur Culture Indicated? Urine Glucose COVID-19 Source Nasopharynx SARS-CoV-2 (PCR) Negative Influenza Type A (PCR) Negative Influenza Type B (PCR) Negative RSV (PCR) Positive A* Add-On Test Request 04/26/24 04/26/24 04/26/24 14:50 14:53 14:57 WBC RBC Hgb Hct MCV MCH MCHC RDW Plt Count MPV Immature Gran % Neutrophils % Band Neutrophils % Lymphocytes % Atypical Lymphs % Monocytes % Eosinophils % Basophils % Nucleated RBC % Absolute Neutrophils Absolute Lymphocytes Absolute Monocytes Absolute Eosinophils Absolute Basophils RBC Morphology ESR PT INR APTT VBG Lactate Sodium Potassium Chloride Carbon Dioxide Anion Gap BUN Creatinine Est GFR (CKD-EPI 2020) Glucose Hemoglobin A1c Calcium Magnesium Total Bilirubin AST ALT Alkaline Phosphatase Troponin I 2052 H* C-Reactive Protein 13.03 H NT-Pro-B Natriuret Pep Total Protein Albumin Triglycerides 72 Total Cholesterol 65 LDL Cholesterol, Calc 31 HDL Cholesterol 20 L Procalcitonin TSH Urine Color Yellow Urine Clarity Clear Urine pH 5.5 Ur Specific [place] 1.015 Urine Protein 100 H Urine Ketones Negative Urine Blood Trace-lysed H Urine Nitrite Negative Urine Bilirubin Negative Urine Urobilinogen 0.2 Ur Leukocyte Esterase Negative Urine RBC 0-2 Urine WBC Negative Ur Epithelial Cells Rare Urine Crystals Negative Urine Bacteria Negative Urine Mucus Trace Ur Culture Indicated? No Urine Glucose Negative COVID-19 Source SARS-CoV-2 (PCR) Influenza Type A (PCR) Influenza Type B (PCR) RSV (PCR) Add-On Test Request DONE 04/26/24 04/27/24 04/27/24 19:58 02:00 05:30 WBC 9.29 RBC 3.15 L Hgb 9.4 L D Hct 28.3 L MCV 90 MCH 29.8 MCHC 33.2 RDW 15.3 H Plt Count 116 L MPV 12.3 H Immature Gran % See Differential Neutrophils % 87.0 Band Neutrophils % 1 Lymphocytes % 5.0 Atypical Lymphs % Monocytes % 7.0 Eosinophils % 0.0 Basophils % 0.0 Nucleated RBC % 0.0 Absolute Neutrophils 8.18 H Absolute Lymphocytes 0.46 L Absolute Monocytes 0.65 Absolute Eosinophils 0.00 Absolute Basophils 0.00 RBC Morphology Normal ESR PT INR APTT VBG Lactate 6.0 H* 2.8 H* Sodium 140 Potassium 3.5 Chloride 108 H Carbon Dioxide 19.2 L Anion Gap 12.8 H BUN 10 Creatinine 0.8 Est GFR (CKD-EPI 2020) 85.89 Glucose 215 H Hemoglobin A1c Calcium 8.3 L Magnesium Total Bilirubin AST ALT Alkaline Phosphatase Troponin I 1503 H* 880 H* C-Reactive Protein NT-Pro-B Natriuret Pep Total Protein Albumin Triglycerides Total Cholesterol LDL Cholesterol, Calc HDL Cholesterol Procalcitonin TSH Urine Color Urine Clarity Urine pH Ur Specific [place] Urine Protein Urine Ketones Urine Blood Urine Nitrite Urine Bilirubin Urine Urobilinogen Ur Leukocyte Esterase Urine RBC Urine WBC Ur Epithelial Cells Urine Crystals Urine Bacteria Urine Mucus Ur Culture Indicated? Urine Glucose COVID-19 Source SARS-CoV-2 (PCR) Influenza Type A (PCR) Influenza Type B (PCR) RSV (PCR) Add-On Test Request 04/27/24 08:09 WBC RBC Hgb Hct MCV MCH MCHC RDW Plt Count MPV Immature Gran % Neutrophils % Band Neutrophils % Lymphocytes % Atypical Lymphs % Monocytes % Eosinophils % Basophils % Nucleated RBC % Absolute Neutrophils Absolute Lymphocytes Absolute Monocytes Absolute Eosinophils Absolute Basophils RBC Morphology ESR PT INR APTT VBG Lactate 1.6 Sodium Potassium Chloride Carbon Dioxide Anion Gap BUN Creatinine Est GFR (CKD-EPI 2020) Glucose Hemoglobin A1c Calcium Magnesium Total Bilirubin AST ALT Alkaline Phosphatase Troponin I C-Reactive Protein NT-Pro-B Natriuret Pep Total Protein Albumin Triglycerides Total Cholesterol LDL Cholesterol, Calc HDL Cholesterol Procalcitonin TSH Urine Color Urine Clarity Urine pH Ur Specific [place] Urine Protein Urine Ketones Urine Blood Urine Nitrite Urine Bilirubin Urine Urobilinogen Ur Leukocyte Esterase Urine RBC Urine WBC Ur Epithelial Cells Urine Crystals Urine Bacteria Urine Mucus Ur Culture Indicated? Urine Glucose COVID-19 Source SARS-CoV-2 (PCR) Influenza Type A (PCR) Influenza Type B (PCR) RSV (PCR) Add-On Test Request PAWSS Have you Been Recently Intoxicated or Drunk Within the Last 30 days?: No Have you Ever Experienced Previous Episodes of Alcohol Withdrawal?: No Have you ever Experienced Withdrawal Seizures?: No Have you ever Experienced Delirium Tremens(DT)s?: No Have you ever undergone Alcohol Rehabilitation Treatment (i.e, inpt ot outpatient treatment programs)?: No Have you ever Experienced Blackouts?: No Have you ever Combined Alcohol with other Downers within the last 90 days?: No Have you ever Combined Alcohol with any other Substance of Abuse during the last 90 days?: No Positive Blood Alcohol level on Presentation? [PCS.BAL]: No Evidence of Increased Autonomic Activity (i.e. HR>120, tremor, sweating, agitation, nausea)?: No Result: 0
[2024-04-27] MEDS: Levothyroxine 175 MCG TAB 350 MCG PO (11:11)
[2024-04-27 11:13] VITALS: BP 92/60; PULSE 85; RESP 16; TEMP 36.9; O2SAT 98
[2024-04-27 14:28] LABS: Lactate 2.1 mmol/L (<or=2.0)
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
[2024-04-27 15:37] VITALS: BP 96/70; PULSE 60; RESP 18; TEMP 37; O2SAT 98
[2024-04-27 16:58] LABS: Magnesium 1.7 mg/dL (1.8-2.4)
--- NOTE | 2024-04-27 17:02 | W.PC.ACHO ---
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 RR 44 in triage. concerned for sepsis at home Medical / Surgical History (Last Reviewed 10/23/23 @ 12:58 by Gregorio Alves MD) Vascular catheter infection Bacteremia DVT (deep venous thrombosis) Hypoalbuminemia Hypocalcemia Hyperglycemia LOGAN (acute kidney injury) Hyponatremia Pharyngitis Anemia Neutropenic fever Hx of blood clots Intestinal volvulus Diabetes Cardiac murmur Lactic acidosis (Last Reviewed 10/23/23 @ 12:58 by Gregorio Alves MD) Hx of appendectomy S/P cholecystectomy Incarcerated hernia History of hysterectomy Tibial plateau fracture (10/30/18) Most Recent Vital Signs Temperature 37.0 C 04/27/24 15:37 Temperature Source Tympanic 04/27/24 15:37 Pulse 60 04/27/24 15:37 Pulse Rhythm Regular 04/26/24 20:30 Pulse 82 04/26/24 19:30 Respiratory Rate 18 04/27/24 15:37 Respiratory Effort Normal 04/26/24 20:30 Respiratory Depth Normal 04/26/24 20:30 Respiratory Pattern Normal 04/26/24 20:30 Blood Pressure 96/70 L 04/27/24 15:37 Blood Pressure Mean 56 04/26/24 16:45 Pulse Oximetry 98 04/27/24 15:37 Oxygen Delivery Method Room Air 04/27/24 15:37 Oxygen Flow Rate 0 04/27/24 15:37 Pain Level 0 04/27/24 15:45 Comment Pt states this is her normal BP. 04/27/24 08:31 Allergies amoxicillin Allergy (Severe, Verified 04/26/24 11:43) anaphylasis latex Allergy (Intermediate, Verified 04/26/24 11:43) Hives exenatide (From [place]) Adverse Reaction (Severe, Verified 04/26/24 11:43) Nausea adhesive tape Adverse Reaction (Verified 04/26/24 11:43) Skin Rash codeine Adverse Reaction (Verified 04/26/24 11:43) Nausea morphine Adverse Reaction (Verified 04/26/24 11:43) Nausea Precautions Isolation PUI 04/26/24 12:29 Active Medications Generic Name Dose Route Start Last Admin Trade Name Aristides PRN Reason Stop Dose Admin Acetaminophen 1,000 mg 04/26/24 20:29 04/27/24 14:07 Acetaminophen 500 Mg Tab PO 1,000 mg TID AMITA Administration Lipase/Protease/Amylase 2 cap 04/27/24 08:00 04/27/24 12:33 Creon, Lipase 24,000 Capcr PO 2 cap QMEALS AMITA Administration Aspirin 81 mg 04/27/24 08:30 04/27/24 08:33 Aspirin E.C. 81 Mg Tabec PO 81 mg DAILY AMITA Administration Budesonide/Formoterol Fumarate 2 puff 04/27/24 08:30 04/27/24 09:04 Budesonide/Formoterol 160/4.5 6 Gm 60 Puff Inh IH 2 inh BID AMITA Administration Colestipol HCl 1 gm 04/26/24 20:29 04/27/24 08:35 Colestipol 1 Gm Tab PO Not Given BID AMITA Enoxaparin Sodium 70 mg 04/27/24 05:00 04/27/24 05:12 Enoxaparin 80 Mg/0.8 Ml Syr SC 70 mg Q12H AMITA Administration Ringer's Solution 1,000 mls @ 150 mls/hr 04/26/24 17:00 04/27/24 14:08 IV 150 mls/hr INFUSION AMITA Administration Cefepime HCl 2 gm/ Sodium 100 mls @ 200 mls/hr 04/27/24 12:00 04/27/24 16:15 Chloride IVPB Infused Q8H AMITA Infusion Magnesium Chloride 64 mg 04/26/24 20:29 04/27/24 08:33 Magnesium Chloride 64 Mg Tabcr PO 64 mg BID AMITA Administration Multivitamins 1 tab 04/27/24 08:30 04/27/24 08:33 Multivitamin Tab PO 1 tab DAILY AMITA Administration Pantoprazole Sodium 40 mg 04/26/24 20:29 04/27/24 08:34 Pantoprazole 40 Mg Tabcr PO 40 mg BID AMITA Administration Potassium Chloride 20 meq 04/27/24 08:30 04/27/24 14:07 Potassium Chloride 20 Meq Tabcr PO 20 meq TID AMITA Administration Sodium Chloride 0 ml 04/26/24 11:43 04/27/24 14:07 Normal Saline Flush 10 Ml Syr IVP 30 ml PRN PRN Administration Sodium Chloride 0 ml 04/26/24 20:00 04/27/24 08:08 Normal Saline Flush 10 Ml Syr IVP 10 ml BID AMITA Administration IV IV Catheter Type [Left Saline Lock Antecubital] IV Catheter Type [Left Single Lumen Subclavian Subclavian Proximal Port] IV Catheter Gauge [Left 20 Antecubital] Diagnostics 04/27/24 04/27/24 04/27/24 Range/Units 14:22 14:17 08:09 WBC (4.4-10.8) 10^3/uL RBC (3.93-5.22) 10^6/uL Hgb (11.2-15.7) g/dL Hct (36.0-46.0) % MCV (80-95) fL MCH (27.0-33.0) pg MCHC (32.0-36.0) % RDW (11.7-14.6) % Plt Count (130-400) 10^3/uL MPV (8.0-11.0) fL Immature Gran % Neutrophils % % Band Neutrophils % % Lymphocytes % % Monocytes % % Eosinophils % % Basophils % % Nucleated RBC % (0.0-0.3) % Absolute Neutrophils (1.2-6.7) 10^3/uL Absolute Lymphocytes (1.2-3.4) 10^3/uL Absolute Monocytes (0.1-0.8) 10^3/uL Absolute Eosinophils (0.0-0.7) 10^3/uL Absolute Basophils (0.0-0.2) 10^3/uL RBC Morphology VBG Lactate 2.1 H* 1.6 (<or=2.0) mmol/L Sodium (136-145) mmol/L Potassium (3.5-5.1) mmol/L Chloride (98-107) mmol/L Carbon Dioxide (21.0-32.0) mmol/L Anion Gap (3-11) mmol/L BUN (7-18) mg/dL Creatinine (0.55-1.02) mg/dL Est GFR (CKD-EPI 2020) (mL/min/1.73m2) Glucose (74-106) mg/dL Calcium (8.5-10.1) mg/dL Magnesium 1.7 L (1.8-2.4) mg/dL Troponin I (<or=51) ng/L 04/27/24 04/27/24 04/26/24 Range/Units 05:30 02:00 19:58 WBC 9.29 (4.4-10.8) 10^3/uL RBC 3.15 L (3.93-5.22) 10^6/uL Hgb 9.4 L D (11.2-15.7) g/dL Hct 28.3 L (36.0-46.0) % MCV 90 (80-95) fL MCH 29.8 (27.0-33.0) pg MCHC 33.2 (32.0-36.0) % RDW 15.3 H (11.7-14.6) % Plt Count 116 L (130-400) 10^3/uL MPV 12.3 H (8.0-11.0) fL Immature Gran % See Differential Neutrophils % 87.0 % Band Neutrophils % 1 % Lymphocytes % 5.0 % Monocytes % 7.0 % Eosinophils % 0.0 % Basophils % 0.0 % Nucleated RBC % 0.0 (0.0-0.3) % Absolute Neutrophils 8.18 H (1.2-6.7) 10^3/uL Absolute Lymphocytes 0.46 L (1.2-3.4) 10^3/uL Absolute Monocytes 0.65 (0.1-0.8) 10^3/uL Absolute Eosinophils 0.00 (0.0-0.7) 10^3/uL Absolute Basophils 0.00 (0.0-0.2) 10^3/uL RBC Morphology Normal VBG Lactate 2.8 H* 6.0 H* (<or=2.0) mmol/L Sodium 140 (136-145) mmol/L Potassium 3.5 (3.5-5.1) mmol/L Chloride 108 H (98-107) mmol/L Carbon Dioxide 19.2 L (21.0-32.0) mmol/L Anion Gap 12.8 H (3-11) mmol/L BUN 10 (7-18) mg/dL Creatinine 0.8 (0.55-1.02) mg/dL Est GFR (CKD-EPI 2020) 85.89 (mL/min/1.73m2) Glucose 215 H (74-106) mg/dL Calcium 8.3 L (8.5-10.1) mg/dL Magnesium (1.8-2.4) mg/dL Troponin I 880 H* 1503 H* (<or=51) ng/L 04/26/24 12:30 Blood Culture - Preliminary Blood Gram negative jessenia 04/26/24 11:58 Blood Culture - Preliminary Blood Gram negative jessenia Intake and Output - 24 Hour Total 04/26/24 11:28 thru 04/27/24 16:15 Intake Total 4170 Balance 4170 Weight 70.3 kg Intake: IV 3920 Oral 250 Other: Urine Color Yellow Urine Appearance Clear Comment voided in toilet Stool Size Small Stool Characteristics Liquid Falls Risk Assessment History of Falls No History 04/26/24 20:30 Contributing Factors No Factors 04/26/24 20:30 Ambulatory Aids Independent 04/26/24 20:30 Tubes/Lines None 04/26/24 20:30 Gait Evaluation No gait disturbance 04/26/24 20:30 Cognition No cognitive impairment 04/26/24 20:30 Fall Total Score 0 04/26/24 20:30 Level of Risk Standard/Low Risk 04/26/24 20:30 Problems (Last Reviewed 10/23/23 @ 12:58 by Gregorio Alves MD) Hypomagnesemia (Acute) Hypokalemia (Acute) Severe sepsis (Acute) Acute hypoxic respiratory failure (Acute) Respiratory syncytial virus (RSV) infection (Acute) Elevated troponin (Acute) Short gut syndrome (Acute) Hypothyroid (Chronic) Notes 04/26/24 13:22 Nursing Notes by Christelle Souza Nursing Note: provider notified of critical lab trop 439. Initialized on 04/26/24 13:22 - END OF NOTE v v v v v v v v v Sending and/or Receiving Nurses: Please use comment section below to note any information pertinent to the patient hand-off not included above. Information / Comments: Report called at 1654, all question answered, pt will be going to floor L4WA and room 490. She will be transferred via ambulance w/ paramedics. Report received from: Mckayla [facility] receiving nurse.
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
== END 2024-04-27 17:48 | disposition short-term general hospital (02) | DRG 280 ==
LOC: ER 15:08 → MS 18:28
PROVIDERS: Family Medicine; Nurse Practitioner Acute Care; Admitting Provider Hospitalist; Emergency Provider Emergency Medicine; PCP Nurse Practitioner Family; Visit Provider Hospitalist
DX: T80.211A Bloodstream infection due to central venous catheter, initial encounter (principal); A41.50 Gram-negative sepsis, unspecified; I21.A1 Myocardial infarction type 2; I40.0 Infective myocarditis; J96.01 Acute respiratory failure with hypoxia; R65.20 Severe sepsis without septic shock; K90.821 Short bowel syndrome with colon in continuity; K86.1 Other chronic pancreatitis; E87.6 Hypokalemia; E83.42 Hypomagnesemia; B97.4 Respiratory syncytial virus as the cause of diseases classified elsewhere; E03.9 Hypothyroidism, unspecified; J45.909 Unspecified asthma, uncomplicated
CPT/HCPCS: 00123; 71275; 80048; 80053; 80061; 84145; 85652; 87040; 87077; 87637; 93005; 94640; 96361; 96365; 96367; 96372; 96375; 99285; 81003; 81015; 83036; 83605; 83735; 83880; 84443; 84484; 85025; 85610; 85730; 86140; 87186; 93010; 93306; 94664; 99223; 99239; J0131; J0692; J0696; J1100; J1650; J2470; J3475; J3480; J3490; J7620

== ENCOUNTER 2024-05-19 10:00 | Outpatient (RCR) | payer BC, SELFPAY ==
[2024-05-06] MEDS: IRON SUCROSE COMPLEX 200 MG in Normal Saline 100 ML 440 MG IVPB (10:23)
[2024-05-06] MEDS: Normal Saline Flush 10 ML SYR IVP (10:24)
[2024-05-06 10:40] LABS: Abs Immature Grans 0.03 10^3/uL (0.0-0.06); Absolute Basophil Count 0.11 10^3/uL (0.0-0.2); Absolute Eosinophil Count 0.21 10^3/uL (0.0-0.7); Absolute Lymphocyte Count 1.57 10^3/uL (1.2-3.4); Absolute Monocyte Count 0.62 10^3/uL (0.1-0.8); Basophils % 1.7 %; Eosinophils % 3.2 %; HGB 10.3 g/dL (11.2-15.7); Immature Grans % 0.5 %; MCHC 32.2 % (32.0-36.0); MCV 93 fL (80-95); MPV 9.6 fL (8.0-11.0); Monocytes % 9.5 %; Neutrophils % 61.1 %; Platelet Count 339 10^3/uL (130-400); RBC 3.43 10^6/uL (3.93-5.22); RDW 15.4 % (11.7-14.6); RDW-SD 52.6 fL; WBC 6.54 10^3/uL (4.4-10.8)
[2024-05-06 11:00] LABS: ALT 105 U/L (14-59); AST 71 U/L (15-37); Albumin 2.9 g/dL (3.4-5.0); Alkaline Phosphatase 178 U/L (46-116); Anion Gap 7.9 mmol/L (3-11); BUN 15 mg/dL (7-18); Bilirubin, Total 0.29 mg/dL (0.2-1.0); CO2 24.1 mmol/L (21.0-32.0); CREATININE 0.6 mg/dL (0.55-1.02); Calcium 8.9 mg/dL (8.5-10.1); Chloride 108 mmol/L (98-107); Estimated GFR 104.63 (mL/min/1.73m2); Glucose 95 mg/dL (74-106); Magnesium 1.6 mg/dL (1.8-2.4); PHOSPHORUS 3.8 mg/dL (2.6-4.7); Potassium 4.1 mmol/L (3.5-5.1); Sodium 140 mmol/L (136-145); Total Protein 7.4 g/dL (6.4-8.2)
[2024-05-06 11:01] LABS: C-Reactive Protein < 0.50 mg/dL (<or=0.5)
[2024-05-07 10:02] LABS: Prealbumin 21 mg/dL (20-40)
[2024-05-19] MEDS: Normal Saline Flush 10 ML SYR IVP (10:23)
== END 2024-05-22 23:59 | disposition home or self-care (01) ==
LOC: INF 10:00
PROVIDERS: PCP Nurse Practitioner Family; Visit Provider Internal Medicine Gastroenterology
DX: Z78.9 Other specified health status (principal); D50.9 Iron deficiency anemia, unspecified
CPT/HCPCS: 36592; 80053; 96365; 83735; 84100; 84134; 85025; 86140; J1756

== ENCOUNTER 2024-06-05 00:02 | Outpatient (CLI) | payer BC, SELFPAY ==
--- NOTE | 2024-06-05 06:45 | DI.MAMMO_ITS ---
Exam(s) MAMMO SCREENING EXAM: MAMMO SCREENING CLINICAL HISTORY: screening,Z12.39 TECHNIQUE: Bilateral full field digital CC and MLO mammographic images were obtained with 3D tomosyn thesis and utilizing computer aided detection (CAD). COMPARISON: There are no priors for comparison. FINDINGS: Masses/Architectural Distortion: No suspicious masses or areas of architectural distortion are presen t. Microcalcifications: No suspicious pleomorphic-type are seen. Skin Thickening/Nipple Retraction: None. IMPRESSION: 1. There is no evidence for malignancy at this time. 2. Unless there is more urgent need, screening mammography is recommended, as per [employer] guidelines. BI-RADS Category 1 - Negative Breast Density - Category A - Almost entirely fatty Breast density category C or D implies that the patient has dense breast tissue. Dense breast tissue is very common and is not abnormal but dense breast tissue can make it harder to find cancer on a ma mmogram. Also, dense breast tissue may increase their breast cancer risk. This information about the result of the mammogram report was provided to the patient to raise their awareness. Use this report when you speak with the patient about their risks for breast cancer, which includes their family hist ory. At that time, you may recommend for more screening tests (Ultrasound or MRI) as they might be us eful based on their risk. A negative radiographic report should not delay biopsy if a dominant or clinically suspicious mass is present. Up to ten percent of cancers are not identified on mammography. A negative report may reinforce clinical impression. Adenosis and dense breasts may obscure an underlying neoplasm. False positive reports average 6 to 10%. Patient will receive a letter notifying them of these results.
== END 2024-06-05 00:22 ==
LOC: DI 00:03
PROVIDERS: PCP Nurse Practitioner Family; Visit Provider Nurse Practitioner Family
DX: Z12.31 Encounter for screening mammogram for malignant neoplasm of breast (principal); R92.313 Mammographic fatty tissue density, bilateral breasts
CPT/HCPCS: 77063; 77067

== ENCOUNTER 2024-06-17 02:11 | Outpatient (RCR) | payer BC, SELFPAY ==
[2024-05-27] MEDS: Normal Saline Flush 10 ML SYR IVP (09:38)
[2024-06-03] MEDS: IRON SUCROSE COMPLEX 200 MG in Normal Saline 100 ML 440 MG IVPB (09:09)
[2024-06-03] MEDS: Normal Saline Flush 10 ML SYR IVP (09:09)
[2024-06-03 10:01] LABS: Abs Immature Grans 0.01 10^3/uL (0.0-0.06); Absolute Basophil Count 0.07 10^3/uL (0.0-0.2); Absolute Eosinophil Count 0.32 10^3/uL (0.0-0.7); Absolute Lymphocyte Count 1.54 10^3/uL (1.2-3.4); Absolute Monocyte Count 0.42 10^3/uL (0.1-0.8); Absolute Neutrophil Count 1.35 10^3/uL (1.2-6.7); Basophils % 1.9 %; Eosinophils % 8.6 %; HCT 32.4 % (36.0-46.0); HGB 10.4 g/dL (11.2-15.7); Immature Grans % 0.3 %; Lymphocytes % 41.5 %; MCH 28.9 pg (27.0-33.0); MCHC 32.1 % (32.0-36.0); MCV 90 fL (80-95); MPV 11.5 fL (8.0-11.0); Monocytes % 11.3 %; Neutrophils % 36.4 %; Platelet Count 221 10^3/uL (130-400); RDW 15.3 % (11.7-14.6); RDW-SD 50.3 fL; WBC 3.71 10^3/uL (4.4-10.8)
[2024-06-03 10:26] LABS: ALT 86 U/L (14-59); AST 52 U/L (15-37); Albumin 2.8 g/dL (3.4-5.0); Alkaline Phosphatase 156 U/L (46-116); Anion Gap 10.4 mmol/L (3-11); BUN 15 mg/dL (7-18); Bilirubin, Total 0.3 mg/dL (0.2-1.0); CO2 24.6 mmol/L (21.0-32.0); CREATININE 0.6 mg/dL (0.55-1.02); Calcium 8.8 mg/dL (8.5-10.1); Chloride 106 mmol/L (98-107); Estimated GFR 104.63 (mL/min/1.73m2); Glucose 91 mg/dL (74-106); PHOSPHORUS 3.3 mg/dL (2.6-4.7); Potassium 4.1 mmol/L (3.5-5.1); Sodium 141 mmol/L (136-145); Total Protein 6.8 g/dL (6.4-8.2)
[2024-06-03 10:30] LABS: C-Reactive Protein < 0.50 mg/dL (<or=0.5)
[2024-06-03 10:54] LABS: Calculated LDL 48 mg/dL (<100); Cholesterol 92 mg/dL (<200); HDL Cholesterol 31 mg/dL (>or=50); TSH (W/Ref FT4) 3.67 uIU/mL (0.36-3.74); Triglyceride 69 mg/dL (<150)
[2024-06-03 10:57] LABS: Hemoglobin A1C 4.9 % (<5.7)
[2024-06-04 11:07] LABS: Prealbumin 18 mg/dL (20-40)
[2024-06-17] MEDS: Normal Saline Flush 10 ML SYR IVP (10:56)
== END 2024-06-22 23:59 | disposition home or self-care (01) ==
LOC: INF 02:11
PROVIDERS: PCP Nurse Practitioner Family; Visit Provider Internal Medicine Gastroenterology
DX: D50.9 Iron deficiency anemia, unspecified; E03.9 Hypothyroidism, unspecified; Z13.220 Encounter for screening for lipoid disorders; Z13.1 Encounter for screening for diabetes mellitus; Z78.9 Other specified health status
CPT/HCPCS: 36592; 80053; 80061; 96365; 83036; 83735; 84100; 84134; 84443; 85025; 86140; J1756

== ENCOUNTER 2024-06-25 08:39 | Outpatient (REF) | payer BC, SELFPAY ==
--- NOTE | 2024-06-25 08:35 | PAPFT_PTH ---
PATIENT: Lacie Nunez LOC: [facility] U#:[id number] AGE/SX: 59/F ROOM: RE06/25/[address]: Arpita Cole MD : 1965 BED: DIS: 06/25/2024 SPEC #: [id number] RECD: 06/25/24 12:39 STATUS: EULALIA REQ #: [id number] SHIRLEY: 06/25/24 08:[address]: Arpita Cole [facility]PT[facility] Cytology RECD BY: Jessi Landaverde ENTERED: 06/25/24 12:39 SP TYPE: PAPFT OT DR: Celso Orona, JUNI Tissues: 1 - CX/ENDOCX FOR PAP SMEARS Procedures: PAP THIN PREP/[facility] Screening HPV DNA PROBE Comments: [id number] (HPV 16 & 18/45)
== END 2024-06-25 08:40 | disposition home or self-care (01) ==
LOC: LBN 08:39
PROVIDERS: PCP Nurse Practitioner Family; Visit Provider Obstetrics & Gynecology
DX: Z12.4 Encounter for screening for malignant neoplasm of cervix (principal)
CPT/HCPCS: 88142; 87624

== ENCOUNTER 2024-07-22 01:25 | Outpatient (RCR) | payer BC, SELFPAY ==
[2024-06-24] MEDS: Normal Saline Flush 10 ML SYR IVP (08:56)
[2024-07-01] MEDS: IRON SUCROSE COMPLEX 200 MG in Normal Saline 100 ML 440 MG IVPB (08:27)
[2024-07-01] MEDS: Normal Saline Flush 10 ML SYR IVP (08:28)
[2024-07-01 09:24] LABS: Absolute Basophil Count 0.13 10^3/uL (0.0-0.2); Absolute Eosinophil Count 0.59 10^3/uL (0.0-0.7); Absolute Lymphocyte Count 1.71 10^3/uL (1.2-3.4); Absolute Neutrophil Count 1.78 10^3/uL (1.2-6.7); Basophils % 2.7 %; Eosinophils % 12.3 %; HCT 32.2 % (36.0-46.0); Lymphocytes % 35.6 %; MCH 28.2 pg (27.0-33.0); MCHC 31.1 % (32.0-36.0); MCV 91 fL (80-95); MPV 10.8 fL (8.0-11.0); Monocytes % 12.5 %; Neutrophils % 36.9 %; Platelet Count 262 10^3/uL (130-400); RBC 3.55 10^6/uL (3.93-5.22); RDW 15.3 % (11.7-14.6); RDW-SD 50.5 fL; WBC 4.81 10^3/uL (4.4-10.8)
[2024-07-01 09:44] LABS: ALT 102 U/L (14-59); AST 54 U/L (15-37); Alkaline Phosphatase 151 U/L (46-116); Anion Gap 9.5 mmol/L (3-11); BUN 19 mg/dL (7-18); Bilirubin, Total 0.2 mg/dL (0.2-1.0); C-Reactive Protein < 0.50 mg/dL (<or=0.5); CO2 25.5 mmol/L (21.0-32.0); CREATININE 0.6 mg/dL (0.55-1.02); Calcium 8.9 mg/dL (8.5-10.1); Chloride 107 mmol/L (98-107); Estimated GFR 103.98 (mL/min/1.73m2); Glucose 98 mg/dL (74-106); Magnesium 1.9 mg/dL (1.8-2.4); PHOSPHORUS 3.9 mg/dL (2.6-4.7); Sodium 142 mmol/L (136-145); Total Protein 7.1 g/dL (6.4-8.2)
[2024-07-02 10:41] LABS: Prealbumin 18 mg/dL (20-40)
[2024-07-22] MEDS: Normal Saline Flush 10 ML SYR IVP (09:21)
== END 2024-07-22 23:59 | disposition home or self-care (01) ==
LOC: INF 01:25
PROVIDERS: PCP Nurse Practitioner Family; Visit Provider Internal Medicine Gastroenterology
DX: Z78.9 Other specified health status (principal)
CPT/HCPCS: 36592; 80053; 96365; 83735; 84100; 84134; 85025; 86140; J1756

== ENCOUNTER 2024-08-19 00:43 | Outpatient (RCR) | payer BC, SELFPAY ==
[2024-07-29] MEDS: IRON SUCROSE COMPLEX 200 MG in Normal Saline 100 ML 440 MG IVPB (09:20)
[2024-07-29] MEDS: Normal Saline Flush 10 ML SYR IVP (09:21)
[2024-07-29 09:29] LABS: Abs Immature Grans 0.01 10^3/uL (0.0-0.06); Absolute Basophil Count 0.12 10^3/uL (0.0-0.2); Absolute Lymphocyte Count 1.71 10^3/uL (1.2-3.4); Absolute Monocyte Count 0.51 10^3/uL (0.1-0.8); Absolute Neutrophil Count 1.96 10^3/uL (1.2-6.7); Basophils % 2.5 %; Eosinophils % 10.4 %; HCT 35.8 % (36.0-46.0); HGB 11.5 g/dL (11.2-15.7); Immature Grans % 0.2 %; Lymphocytes % 35.6 %; MCH 27.8 pg (27.0-33.0); MCHC 32.1 % (32.0-36.0); MCV 87 fL (80-95); MPV 11.4 fL (8.0-11.0); Monocytes % 10.6 %; Neutrophils % 40.7 %; Platelet Count 245 10^3/uL (130-400); RBC 4.13 10^6/uL (3.93-5.22); RDW 17.2 % (11.7-14.6); RDW-SD 54.4 fL; WBC 4.81 10^3/uL (4.4-10.8)
[2024-07-29 09:46] LABS: Iron 85 ug/dL (50-170); Total Iron Binding Capacity 311 ug/dL (250-450); Transferrin Sat 27 % (15-50)
[2024-07-29 10:10] LABS: Vitamin D 25 Total 13 ng/mL (30-100)
[2024-07-29 10:14] LABS: ALT 55 U/L (14-59); AST 33 U/L (15-37); Albumin 3.1 g/dL (3.4-5.0); Alkaline Phosphatase 144 U/L (46-116); Anion Gap 7.8 mmol/L (3-11); BUN 21 mg/dL (7-18); Bilirubin, Total 0.2 mg/dL (0.2-1.0); CO2 25.2 mmol/L (21.0-32.0); CREATININE 0.5 mg/dL (0.55-1.02); Calcium 8.9 mg/dL (8.5-10.1); Chloride 106 mmol/L (98-107); Estimated GFR 108.65 (mL/min/1.73m2); Ferritin 18 ng/mL (8-252); Folate 18.4 ng/mL (8.6-20.0); Glucose 92 mg/dL (74-106); Potassium 4.2 mmol/L (3.5-5.1); Sodium 139 mmol/L (136-145); Total Protein 7.3 g/dL (6.4-8.2); Triglyceride 54 mg/dL (<150); Vitamin B12 896 pg/mL (193-986)
[2024-07-29 10:23] LABS: C-Reactive Protein < 0.50 mg/dL (<or=0.5); PHOSPHORUS 4.1 mg/dL (2.6-4.7)
[2024-07-30 10:00] LABS: Prealbumin 18 mg/dL (20-40)
[2024-07-31 13:20] LABS: Selenium, Serum 117 mcg/L (110-165); Zinc, S 93 mcg/dL (60-106)
[2024-07-31 15:14] LABS: Chromium, Serum 0.3 ng/mL (<0.3)
[2024-07-31 18:41] LABS: Copper, Serum 93 mcg/dL (77-206)
[2024-08-03 13:39] LABS: Vitamin E, Serum 10.6 mg/L (5.5 - 17.0)
[2024-08-04 13:18] LABS: Manganese, Serum 0.7 ng/mL (0.5-1.2)
[2024-08-05] MEDS: Normal Saline Flush 10 ML SYR IVP (09:10)
[2024-08-05 09:54] LABS: Methylmalonic Acid 0.13 nmol/mL (<=0.40)
[2024-08-09 08:14] LABS: Free Retinol (Vitamin A) 41.8 mcg/dL (32.5-78.0)
[2024-08-19] MEDS: Normal Saline Flush 10 ML SYR IVP (08:37)
== END 2024-08-22 23:59 | disposition home or self-care (01) ==
LOC: INF 00:43
PROVIDERS: PCP Nurse Practitioner Family; Visit Provider Internal Medicine Gastroenterology
DX: Z78.9 Other specified health status (principal); K90.829 Short bowel syndrome, unspecified; E53.8 Deficiency of other specified B group vitamins; E61.0 Copper deficiency; E80.7 Disorder of bilirubin metabolism, unspecified; K86.89 Other specified diseases of pancreas; D64.9 Anemia, unspecified; Z86.39 Personal history of other endocrine, nutritional and metabolic disease
CPT/HCPCS: 36592; 80053; 80186; 82306; 82525; 84630; 96365; 82495; 82607; 82728; 82746; 83540; 83550; 83735; 83785; 84100; 84134; 84255; 84446; 84478; 84590; 85025; 86140; J1756

== ENCOUNTER 2024-09-16 00:42 | Outpatient (RCR) | payer BC, SELFPAY ==
[2024-08-26] MEDS: Normal Saline Flush 10 ML SYR IVP (08:25)
[2024-08-26] MEDS: IRON SUCROSE COMPLEX 200 MG in Normal Saline 100 ML 440 MG IVPB (08:25)
[2024-08-26 08:42] LABS: Abs Immature Grans 0.01 10^3/uL (0.0-0.06); Absolute Basophil Count 0.15 10^3/uL (0.0-0.2); Absolute Eosinophil Count 0.52 10^3/uL (0.0-0.7); Absolute Lymphocyte Count 2.49 10^3/uL (1.2-3.4); Absolute Monocyte Count 0.91 10^3/uL (0.1-0.8); Absolute Neutrophil Count 3.26 10^3/uL (1.2-6.7); Eosinophils % 7.1 %; HCT 34.1 % (36.0-46.0); Immature Grans % 0.1 %; Lymphocytes % 33.9 %; MCH 27.9 pg (27.0-33.0); MCHC 32.3 % (32.0-36.0); MCV 87 fL (80-95); MPV 11.4 fL (8.0-11.0); Monocytes % 12.4 %; Neutrophils % 44.5 %; Platelet Count 216 10^3/uL (130-400); RBC 3.94 10^6/uL (3.93-5.22); RDW 17.2 % (11.7-14.6); RDW-SD 54.3 fL; WBC 7.34 10^3/uL (4.4-10.8)
[2024-08-26 08:56] LABS: ALT 62 U/L (14-59); AST 28 U/L (15-37); Alkaline Phosphatase 144 U/L (46-116); Anion Gap 5.6 mmol/L (3-11); BUN 28 mg/dL (7-18); Bilirubin, Total 0.3 mg/dL (0.2-1.0); CO2 28.4 mmol/L (21.0-32.0); CREATININE 0.5 mg/dL (0.55-1.02); Calcium 8.4 mg/dL (8.5-10.1); Chloride 104 mmol/L (98-107); Estimated GFR 108.65 (mL/min/1.73m2); Glucose 119 mg/dL (74-106); Magnesium 2.1 mg/dL (1.8-2.4); Potassium 4.4 mmol/L (3.5-5.1); Sodium 138 mmol/L (136-145)
[2024-08-26 09:02] LABS: C-Reactive Protein < 0.50 mg/dL (<or=0.5)
[2024-08-27 11:20] LABS: Prealbumin 19 mg/dL (20-40)
[2024-09-02] MEDS: Normal Saline Flush 10 ML SYR IVP (10:05)
[2024-09-16] MEDS: Normal Saline Flush 10 ML SYR IVP (10:04)
== END 2024-09-21 23:59 | disposition home or self-care (01) ==
LOC: INF 00:42
PROVIDERS: PCP Nurse Practitioner Family; Visit Provider Internal Medicine Gastroenterology
DX: Z78.9 Other specified health status (principal)
CPT/HCPCS: 36592; 80053; 96365; 83735; 84100; 84134; 85025; 86140; J1756

== ENCOUNTER 2024-10-03 10:13 | Emergency (ER) | payer BC, SELFPAY ==
[2024-10-03 10:15] VITALS: BP 125/82; PULSE 83; RESP 18; TEMP 36.6; O2SAT 96
--- NOTE | 2024-10-03 10:30 | DI.CT_ITS ---
Exam(s) CT ABDOMEN PELVIS W EXAM: CT ABDOMEN PELVIS W CLINICAL HISTORY: N/V/D, hx bowel resection. TECHNIQUE: Imaging Protocol: Axial computed tomography images with coronal and sagittal reformatted images were created and reviewed CONTRAST MATERIAL: Intravenous: Omnipaque 350 Contrast volume:70 ml Oral: no COMPARISON: CT CT CHEST/ABD/PEL W from 01/04/2023 FINDINGS: ABDOMEN and PELVIS: Lung Bases: No acute findings. Liver: Mild hepatic steatosis.. No suspicious mass. Gallbladder and biliary tract: Cholecystectomy. No biliary dilation. Pancreas: Normal density. No abnormal calcifications or inflammatory process. No evidence of mass. Spleen: Normal. Kidneys: Normal size, contour and axis. No radiodense stones. No obstructive uropathy. No suspicious masses seen. Adrenal glands: No masses seen. Vasculature: Abdominal aorta non-dilated. Soft tissues: Unremarkable. Bladder: No gross wall thickening. No calculi.No focal mass. Bowel: Of the stomach is collapsed. There is some high-density ingested material as well as the tablet. Right lower quadrant anastomosis. Resection of a portion of small bowel in right side of the colon. Focal area of distal small bowel is distended. This has a similar appearance to the prior exam. Diverticulosis of the descending and sigmoid colon. Peritoneal cavity: No ascites. No focal collection. No mesenteric inflammatory response. No free air. Bones: Old L1 compression fracture with mild retropulsion of the superior endplate into the central canal, unchanged in appearance. No new compression fractures.. Reproductive organs: Hysterectomy. Lymph nodes: No pathologically enlarged lymph nodes. IMPRESSION:: Previous bowel resection again noted. Focal dilatation of a loop of small bowel in the pelvis. This could indicate partial obstruction or stricture. The preliminary [facility] report was reviewed. RADIATION DOSE DELIVERED: Total DLP DATA REPOSITORY: All CT scans at this facility are submitted to the National Radiology Data Registry (NRDR) Dose Index Registry (DIR) with the [employer] (ACR). RADIATION OPTIMIZATION: All CT scans at this facility use at least one of these dose optimization techniques: automated exposure control; mA and/or kV adjustment per patient size (includes targeted exams where dose is matched to clinical indication); or iterative reconstruction.
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
[2024-10-03] MEDS: Ondansetron 4 MG/2 ML VIAL IVP (10:58)
[2024-10-03] MEDS: HYDROmorphone 2 MG/ML SYR 0.5 MG IVP (10:58)
[2024-10-03 10:59] LABS: Abs Immature Grans 0.01 10^3/uL (0.0-0.06); HCT 33.6 % (36.0-46.0); HGB 10.9 g/dL (11.2-15.7); Immature Grans % 0.2 %; MCH 29.3 pg (27.0-33.0); MCHC 32.4 % (32.0-36.0); MCV 90 fL (80-95); MPV 10.2 fL (8.0-11.0); Platelet Count 198 10^3/uL (130-400); RBC 3.72 10^6/uL (3.93-5.22); RDW 18.3 % (11.7-14.6); RDW-SD 60.5 fL; WBC 4.40 10^3/uL (4.4-10.8)
[2024-10-03 11:15] LABS: ALT 89 U/L (14-59); AST 58 U/L (15-37); Albumin 3.2 g/dL (3.4-5.0); Alkaline Phosphatase 148 U/L (46-116); Anion Gap 11.5 mmol/L (3-11); BUN 13 mg/dL (7-18); Bilirubin, Total 0.3 mg/dL (0.2-1.0); CO2 23.5 mmol/L (21.0-32.0); Calcium 8.7 mg/dL (8.5-10.1); Chloride 106 mmol/L (98-107); Estimated GFR 103.98 (mL/min/1.73m2); Glucose 97 mg/dL (74-106); Lipase 14 U/L (<78); Magnesium 1.8 mg/dL (1.8-2.4); Potassium 4.2 mmol/L (3.5-5.1); Sodium 141 mmol/L (136-145); Total Protein 7.0 g/dL (6.4-8.2)
[2024-10-03 11:22] VITALS: BP 125/82; PULSE 83; RESP 18; TEMP 36.6; O2SAT 96
[2024-10-03] MEDS: Lactated Ringers 1,000 ML 1000 ML IV (11:33)
[2024-10-03] MEDS: Normal Saline - Diluent 50 ML VIAL IJ (11:36)
[2024-10-03] MEDS: Omnipaque 350 MG/ML 100 ML BTL IJ (11:37)
--- NOTE | 2024-10-03 12:00 | DI.VRAD_ITS ---
PROCEDURE INFORMATION: Exam: CT Abdomen And Pelvis With Contrast Exam date and time: 10/03/2024 11:16 AM Age: 59 years old Clinical indication: Other: N/v/d, HX of bowel resection TECHNIQUE: Imaging protocol: Computed tomography of the abdomen and pelvis with contrast. Radiation optimization: All CT scans at this facility use at least one of these dose optimization techniques: automated exposure control; mA and/or kV adjustment per patient size (includes targeted exams where dose is matched to clinical indication); or iterative reconstruction. Contrast material: OMNIPAQUE 350; Contrast volume: 75 ml; Contrast route: INTRAVENOUS (IV); COMPARISON: CT CHEST/ABD/PEL W 01/04/2023 10:42 AM FINDINGS: Liver: Fatty infiltration of the liver. Gallbladder and biliary ducts: Cholecystectomy. Pancreas: Normal. No ductal dilation. Spleen: Normal. No splenomegaly. Adrenal glands: Normal. No mass. Kidneys and ureters: Normal. No hydronephrosis. Stomach and bowel: Sigmoid colon diverticulosis. Anastomotic bowel sutures in the right abdomen. Evidence of prior partial colon and small bowel resection. Dilated fluid-filled distal small bowel. Appendix: No evidence of appendicitis. Intraperitoneal space: Unremarkable. No free air. No significant fluid collection. Vasculature: Unremarkable. No abdominal aortic aneurysm. Lymph nodes: Unremarkable. No enlarged lymph nodes. Urinary bladder: Unremarkable as visualized. Reproductive: The uterus is absent. Bones/joints: Chronic compression deformity of L1 with retropulsion into the canal. Multilevel lumbar spine disc degeneration. Anterolisthesis L4 on L5. Soft tissues: Unremarkable. IMPRESSION: Evidence of prior bowel resection. Dilated small bowel proximal to anastomosis. Possible anastomotic stricture or mass. Recommend small bowel follow-through. Dictated and Authenticated by: Tez Dexter MD. Orderin St. Darren Lester MD
[2024-10-03 12:32] LABS: Glucose Negative (Negative)
[2024-10-03 12:50] VITALS: BP 127/84; PULSE 84; RESP 20
[2024-10-03] MEDS: Ondansetron O.D.T. 4 MG TABEF, 3 TABS/BTL PO (15:03)
[2024-10-03 15:06] VITALS: BP 134/76; PULSE 74; RESP 15; O2SAT 98
== END 2024-10-03 15:06 | disposition home or self-care (01) ==
PROVIDERS: Emergency Provider Emergency Medicine; PCP Nurse Practitioner Family
DX: R11.2 Nausea with vomiting, unspecified (principal); R19.7 Diarrhea, unspecified; R10.9 Unspecified abdominal pain; K90.829 Short bowel syndrome, unspecified
CPT/HCPCS: 99285; 99284; 36415; 96374; 80053; 83690; 87040; 87505; 96361; 74177; 81003; 83605; 83735; 85025; J1171; J2405; J3490

== ENCOUNTER 2024-10-04 13:28 | Outpatient (REF) | payer BC, SELFPAY ==
[2024-10-05 23:05] LABS: Campylobacter PCR Negative (Negative); Shiga Toxin PCR Negative (Negative); Shigella/Enteroinvasive Ecoli Negative (Negative)
== END 2024-10-04 13:29 | disposition home or self-care (01) ==
LOC: LBN 13:28
PROVIDERS: PCP Nurse Practitioner Family; Visit Provider Emergency Medicine
DX: R19.7 Diarrhea, unspecified (principal)
CPT/HCPCS: 87505

== ENCOUNTER 2024-10-21 03:18 | Outpatient (RCR) | payer BC, SELFPAY ==
[2024-09-23] MEDS: Normal Saline Flush 10 ML SYR IVP (09:00)
[2024-09-23] MEDS: IRON SUCROSE COMPLEX 200 MG in Normal Saline 100 ML 440 MG IVPB (09:20)
[2024-09-23 09:54] LABS: Abs Immature Grans 0.01 10^3/uL (0.0-0.06); HCT 33.2 % (36.0-46.0); HGB 10.8 g/dL (11.2-15.7); Immature Grans % 0.2 %; MCH 28.9 pg (27.0-33.0); MCHC 32.5 % (32.0-36.0); MCV 89 fL (80-95); MPV 10.5 fL (8.0-11.0); Platelet Count 249 10^3/uL (130-400); RBC 3.74 10^6/uL (3.93-5.22); RDW 17.8 % (11.7-14.6); RDW-SD 58.7 fL; WBC 5.68 10^3/uL (4.4-10.8)
[2024-09-23 10:15] LABS: ALT 58 U/L (14-59); AST 26 U/L (15-37); Albumin 3.1 g/dL (3.4-5.0); Alkaline Phosphatase 142 U/L (46-116); Anion Gap 13.7 mmol/L (3-11); BUN 27 mg/dL (7-18); Bilirubin, Total 0.3 mg/dL (0.2-1.0); C-Reactive Protein < 0.50 mg/dL (<or=0.5); CO2 21.3 mmol/L (21.0-32.0); Calcium 8.5 mg/dL (8.5-10.1); Chloride 108 mmol/L (98-107); Estimated GFR 108.65 (mL/min/1.73m2); Glucose 119 mg/dL (74-106); Magnesium 2.0 mg/dL (1.8-2.4); Potassium 4.2 mmol/L (3.5-5.1); Sodium 143 mmol/L (136-145); Total Protein 7.1 g/dL (6.4-8.2)
[2024-09-24 08:08] LABS: Prealbumin 20 mg/dL (20-40)
[2024-09-30] MEDS: Normal Saline Flush 10 ML SYR IVP (11:09)
[2024-10-07] MEDS: Normal Saline Flush 10 ML SYR IVP (09:15)
[2024-10-14] MEDS: Normal Saline Flush 10 ML SYR IVP (08:25)
[2024-10-21] MEDS: IRON SUCROSE COMPLEX 200 MG in Normal Saline 100 ML 440 MG IVPB (08:49)
[2024-10-21] MEDS: Normal Saline Flush 10 ML SYR IVP (08:50)
[2024-10-21 09:15] LABS: Abs Immature Grans 0.01 10^3/uL (0.0-0.06); HCT 34.9 % (36.0-46.0); HGB 11.4 g/dL (11.2-15.7); Immature Grans % 0.2 %; MCH 30.1 pg (27.0-33.0); MCHC 32.7 % (32.0-36.0); MCV 92 fL (80-95); MPV 10.0 fL (8.0-11.0); Platelet Count 234 10^3/uL (130-400); RBC 3.79 10^6/uL (3.93-5.22); RDW 16.6 % (11.7-14.6); RDW-SD 56.3 fL; WBC 4.36 10^3/uL (4.4-10.8)
[2024-10-21 09:32] LABS: ALT 67 U/L (14-59); AST 41 U/L (15-37); Albumin 3.3 g/dL (3.4-5.0); Alkaline Phosphatase 150 U/L (46-116); Anion Gap 11.1 mmol/L (3-11); BUN 14 mg/dL (7-18); Bilirubin, Total 0.4 mg/dL (0.2-1.0); CO2 22.9 mmol/L (21.0-32.0); Calcium 8.9 mg/dL (8.5-10.1); Chloride 105 mmol/L (98-107); Estimated GFR 100.19 (mL/min/1.73m2); Glucose 92 mg/dL (74-106); Magnesium 1.6 mg/dL (1.8-2.4); Potassium 4.0 mmol/L (3.5-5.1); Sodium 139 mmol/L (136-145); Total Protein 7.1 g/dL (6.4-8.2)
[2024-10-21 09:33] LABS: C-Reactive Protein < 0.50 mg/dL (<or=0.5)
[2024-10-22 09:50] LABS: Prealbumin 20 mg/dL (20-40)
== END 2024-10-22 23:59 | disposition home or self-care (01) ==
LOC: INF 03:18
PROVIDERS: PCP Nurse Practitioner Family; Visit Provider Internal Medicine Gastroenterology
DX: D50.9 Iron deficiency anemia, unspecified (principal)
CPT/HCPCS: 36592; 80053; 96365; 83735; 84100; 84134; 85025; 86140; J1756

== ENCOUNTER 2024-11-18 01:50 | Outpatient (RCR) | payer BC, SELFPAY ==
[2024-10-27] MEDS: Normal Saline Flush 10 ML SYR IVP (09:45)
[2024-11-04] MEDS: Normal Saline Flush 10 ML SYR IVP (08:45)
[2024-11-11] MEDS: Normal Saline Flush 10 ML SYR IVP (09:52)
[2024-11-18] MEDS: Normal Saline Flush 10 ML SYR IVP (08:47)
[2024-11-18] MEDS: IRON SUCROSE COMPLEX 200 MG in Normal Saline 100 ML 440 MG IVPB (08:47)
[2024-11-18 09:45] LABS: Abs Immature Grans 0.01 10^3/uL (0.0-0.06); HCT 31.2 % (36.0-46.0); HGB 10.3 g/dL (11.2-15.7); Immature Grans % 0.2 %; MCH 30.1 pg (27.0-33.0); MCHC 33.0 % (32.0-36.0); MCV 91 fL (80-95); MPV 10.7 fL (8.0-11.0); Platelet Count 227 10^3/uL (130-400); RBC 3.42 10^6/uL (3.93-5.22); RDW 15.7 % (11.7-14.6); RDW-SD 51.6 fL; WBC 5.85 10^3/uL (4.4-10.8)
[2024-11-18 10:14] LABS: ALT 79 U/L (14-59); AST 36 U/L (15-37); Albumin 2.9 g/dL (3.4-5.0); Alkaline Phosphatase 143 U/L (46-116); Anion Gap 5.5 mmol/L (3-11); BUN 25 mg/dL (7-18); Bilirubin, Total 0.3 mg/dL (0.2-1.0); CO2 28.5 mmol/L (21.0-32.0); Calcium 8.2 mg/dL (8.5-10.1); Chloride 104 mmol/L (98-107); Estimated GFR 108.65 (mL/min/1.73m2); Glucose 129 mg/dL (74-106); Magnesium 2.3 mg/dL (1.8-2.4); Potassium 4.1 mmol/L (3.5-5.1); Sodium 138 mmol/L (136-145); Total Protein 6.5 g/dL (6.4-8.2)
[2024-11-18 10:17] LABS: C-Reactive Protein < 0.50 mg/dL (<or=0.5)
[2024-11-18 10:53] LABS: Triglyceride 58 mg/dL (<150); Vitamin D 25 Total 20 ng/mL (30-100)
[2024-11-19 10:21] LABS: Prealbumin 16 mg/dL (20-40)
[2024-11-20 13:46] LABS: Copper, Serum 61 mcg/dL (77-206)
[2024-11-20 13:47] LABS: Zinc, S 69 mcg/dL (60-106)
== END 2024-11-22 23:59 | disposition home or self-care (01) ==
LOC: INF 01:50
PROVIDERS: PCP Nurse Practitioner Family; Visit Provider Internal Medicine Gastroenterology
DX: D50.9 Iron deficiency anemia, unspecified (principal)
CPT/HCPCS: 36592; 80053; 82306; 82525; 84630; 96365; 83735; 84100; 84134; 84478; 85025; 86140; J1756

== ENCOUNTER 2024-12-16 08:30 | Outpatient (RCR) | payer MEDICARE, BC, SELFPAY ==
[2024-11-24] MEDS: Normal Saline Flush 10 ML SYR IVP (09:43)
[2024-12-02] MEDS: Normal Saline Flush 10 ML SYR IVP (08:31)
[2024-12-09] MEDS: Normal Saline Flush 10 ML SYR IVP (09:44)
[2024-12-16] MEDS: IRON SUCROSE COMPLEX 200 MG in Normal Saline 100 ML 440 MG IVPB (08:33)
[2024-12-16] MEDS: Normal Saline Flush 10 ML SYR IVP (08:36)
[2024-12-16 08:37] LABS: Abs Immature Grans 0.01 10^3/uL (0.0-0.06); HCT 35.0 % (36.0-46.0); HGB 11.2 g/dL (11.2-15.7); Immature Grans % 0.2 %; MCH 29.7 pg (27.0-33.0); MCHC 32.0 % (32.0-36.0); MCV 93 fL (80-95); MPV 10.7 fL (8.0-11.0); Platelet Count 196 10^3/uL (130-400); RBC 3.77 10^6/uL (3.93-5.22); RDW 15.4 % (11.7-14.6); RDW-SD 52.4 fL; WBC 6.49 10^3/uL (4.4-10.8)
[2024-12-16 09:02] LABS: ALT 122 U/L (14-59); AST 121 U/L (15-37); Albumin 3.0 g/dL (3.4-5.0); Alkaline Phosphatase 152 U/L (46-116); Anion Gap 10.2 mmol/L (3-11); BUN 24 mg/dL (7-18); Bilirubin, Total 0.3 mg/dL (0.2-1.0); C-Reactive Protein < 0.50 mg/dL (<or=0.5); CO2 24.8 mmol/L (21.0-32.0); Calcium 8.4 mg/dL (8.5-10.1); Chloride 104 mmol/L (98-107); Glucose 134 mg/dL (74-106); Magnesium 2.3 mg/dL (1.8-2.4); Potassium 4.3 mmol/L (3.5-5.1); Sodium 139 mmol/L (136-145); Total Protein 6.9 g/dL (6.4-8.2)
[2024-12-17 09:30] LABS: Prealbumin 18 mg/dL (20-40)
== END 2024-12-22 23:59 | disposition home or self-care (01) ==
LOC: INF 08:30
PROVIDERS: PCP Nurse Practitioner Family; Visit Provider Internal Medicine Gastroenterology
DX: D50.9 Iron deficiency anemia, unspecified (principal); Z78.9 Other specified health status
CPT/HCPCS: 36592; 80053; 96365; 83735; 84100; 84134; 85025; 86140; J1756

== ENCOUNTER 2024-12-21 17:19 | Outpatient (REF) | payer MEDICARE, BC, SELFPAY ==
[2024-12-21 15:21] LABS: Glucose Negative (Negative)
[2024-12-21 15:30] LABS: C & S Indicated? Yes; WBC 20-50 HPF (0-5)
== END 2024-12-21 17:20 | disposition home or self-care (01) ==
LOC: NCHCN 17:19
PROVIDERS: PCP Nurse Practitioner Family; Visit Provider Nurse Practitioner Family
DX: R39.9 Unspecified symptoms and signs involving the genitourinary system (principal)
CPT/HCPCS: 87077; 81003; 81015; 87086; 87186

== ENCOUNTER 2025-01-20 02:18 | Outpatient (RCR) | payer MEDICARE, SELFPAY ==
[2024-12-30] MEDS: Normal Saline Flush 10 ML SYR IVP (08:37)
[2025-01-06] MEDS: Normal Saline Flush 10 ML SYR IVP (10:27)
[2025-01-13] MEDS: IRON SUCROSE COMPLEX 200 MG in Normal Saline 100 ML 440 MG IVPB (09:19)
[2025-01-13] MEDS: Normal Saline Flush 10 ML SYR IVP (09:22)
[2025-01-13 09:26] LABS: Abs Immature Grans 0.01 10^3/uL (0.0-0.06); HCT 36.6 % (36.0-46.0); HGB 11.8 g/dL (11.2-15.7); Immature Grans % 0.2 %; MCH 30.1 pg (27.0-33.0); MCHC 32.2 % (32.0-36.0); MCV 93 fL (80-95); MPV 10.2 fL (8.0-11.0); Platelet Count 190 10^3/uL (130-400); RBC 3.92 10^6/uL (3.93-5.22); RDW 16.0 % (11.7-14.6); RDW-SD 54.8 fL; WBC 4.18 10^3/uL (4.4-10.8)
[2025-01-13 09:52] LABS: ALT 113 U/L (14-59); AST 72 U/L (15-37); Albumin 3.1 g/dL (3.4-5.0); Alkaline Phosphatase 176 U/L (46-116); Anion Gap 11.9 mmol/L (3-11); BUN 10 mg/dL (7-18); Bilirubin, Total 0.3 mg/dL (0.2-1.0); C-Reactive Protein < 0.50 mg/dL (<or=0.5); CO2 21.1 mmol/L (21.0-32.0); Calcium 8.7 mg/dL (8.5-10.1); Chloride 108 mmol/L (98-107); Glucose 96 mg/dL (74-106); Magnesium 1.7 mg/dL (1.8-2.4); Potassium 3.8 mmol/L (3.5-5.1); Sodium 141 mmol/L (136-145); Total Protein 7.2 g/dL (6.4-8.2)
[2025-01-14 09:37] LABS: Prealbumin 20 mg/dL (20-40)
== END 2025-01-22 23:59 | disposition home or self-care (01) ==
LOC: INF 02:18
PROVIDERS: PCP Nurse Practitioner Family; Visit Provider Internal Medicine Gastroenterology
DX: D50.9 Iron deficiency anemia, unspecified (principal); K91.2 Postsurgical malabsorption, not elsewhere classified
CPT/HCPCS: 36592; 80053; 96365; 83735; 84100; 84134; 84478; 85025; 86140; J1756

== ENCOUNTER 2025-02-06 12:04 | Emergency (ER) | payer MEDICARE, SELFPAY ==
[2025-02-06] VITALS (15 sets, daily range): BP systolic 90–123; BP diastolic 59–71; PULSE 67–98; RESP 16–20; TEMP 36.8; O2SAT 92–96
--- NOTE | 2025-02-06 12:15 | DI.RAD_ITS ---
Exam(s) XR CHEST 2V PA LATERAL EXAM: XR CHEST 2V PA LATERAL CLINICAL HISTORY: fever. TECHNIQUE: 2D digital imaging was performed. COMPARISON: CR XR CHEST 2V PA LATERAL from 05/07/2023 FINDINGS: 2 views: Distal tip of right sided central line is at SVC-RA junction in good position. Heart size is normal. The mediastinum is not widened. Lungs are clear. No infiltrates nor pleural effusions. IMPRESSION: No acute pulmonary findings. DATA REPOSITORY: RADIATION DOSE DELIVERED:
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
[2025-02-06 12:52] LABS: Abs Immature Grans 0.02 10^3/uL (0.0-0.06); HCT 36.0 % (36.0-46.0); HGB 12.0 g/dL (11.2-15.7); Immature Grans % 0.4 %; MCH 30.5 pg (27.0-33.0); MCHC 33.3 % (32.0-36.0); MCV 92 fL (80-95); MPV 10.3 fL (8.0-11.0); Platelet Count 185 10^3/uL (130-400); RBC 3.93 10^6/uL (3.93-5.22); RDW 15.1 % (11.7-14.6); RDW-SD 50.7 fL; WBC 4.64 10^3/uL (4.4-10.8)
[2025-02-06 13:12] LABS: Magnesium 1.5 mg/dL (1.6-2.6)
[2025-02-06 13:14] LABS: ALT 130 U/L (10-49); AST 140 U/L (<34); Albumin 3.9 g/dL (3.4-5.0); Alkaline Phosphatase 171 U/L (46-116); Anion Gap 11.7 mmol/L (3-11); BUN 12 mg/dL (9-23); Bilirubin, Total 0.60 mg/dL (0.2-1.2); CO2 19.3 mmol/L (20.0-31.0); Calcium 8.4 mg/dL (8.3-10.6); Chloride 107 mmol/L (98-107); Glucose 76 mg/dL (74-106); Potassium 4.2 mmol/L (3.5-5.1); Sodium 138 mmol/L (136-145); Total Protein 7.0 g/dL (5.7-8.2)
[2025-02-06 13:27] LABS: Procalcitonin 0.43 ng/mL
[2025-02-06 13:34] LABS: COVID-19 PCR Negative (Negative); RSV PCR Negative (Negative)
--- NOTE | 2025-02-06 13:57 | DI.VRAD_ITS ---
PROCEDURE INFORMATION: Exam: XR Chest Exam date and time: 02/06/2025 12:59 PM Age: 59 years old Clinical indication: Fever TECHNIQUE: Imaging protocol: Radiologic exam of the chest. Views: 2 views. COMPARISON: CR XR CHEST 2V PA LATERAL 05/07/2023 8:42 AM FINDINGS: Tubes, catheters and devices: Previous left-sided central line has been removed. Right-sided central line has been placed with its tip in the lower SVC. Surgical clips overlie the right upper quadrant. Lungs: Unremarkable. No consolidation. Pleural spaces: Similar slight blunting of the right costophrenic angle could reflect scarring. The left costophrenic angle is sharp. No pneumothorax is identified. Heart/Mediastinum: The cardiomediastinal silhouette is fairly stable in appearance. Bones/joints: Unremarkable. IMPRESSION: No evidence for acute pulmonary disease. Dictated and Authenticated by: Quinton Reynoso MD. Orderin David Alcantara MD
[2025-02-06 14:02] LABS: Glucose Negative (Negative)
[2025-02-06] MEDS: ACETAMINOPHEN 1,000 MG/100 ML BAG 400 MG IVPB (14:05)
[2025-02-06] MEDS: Prochlorperazine 10 MG/2 ML VIAL IVP (14:06)
[2025-02-06] MEDS: Doxycycline Hyclate 100 MG CAP PO (14:57)
== END 2025-02-06 15:03 | disposition home or self-care (01) ==
PROVIDERS: Emergency Provider Emergency Medicine; PCP Nurse Practitioner Family
DX: J01.90 Acute sinusitis, unspecified (principal); R50.9 Fever, unspecified
CPT/HCPCS: 99284 ×2; 96375; 80053; 84145; 87040; 87637; 96365; 71046; 81003; 83605; 83735; 85025; J0131; J0780

== ENCOUNTER 2025-02-17 02:00 | Outpatient (RCR) | payer MEDICARE, SELFPAY ==
[2025-01-28] MEDS: Normal Saline Flush 10 ML SYR IVP (14:49)
[2025-02-03] MEDS: Normal Saline Flush 10 ML SYR IVP (12:38)
[2025-02-10] MEDS: Normal Saline Flush 10 ML SYR IVP (09:39)
[2025-02-10 09:47] LABS: Abs Immature Grans 0.01 10^3/uL (0.0-0.06); HCT 36.6 % (36.0-46.0); HGB 12.3 g/dL (11.2-15.7); Immature Grans % 0.2 %; MCH 30.7 pg (27.0-33.0); MCHC 33.6 % (32.0-36.0); MCV 91 fL (80-95); MPV 10.4 fL (8.0-11.0); Platelet Count 222 10^3/uL (130-400); RBC 4.01 10^6/uL (3.93-5.22); RDW 15.4 % (11.7-14.6); RDW-SD 51.9 fL; WBC 4.80 10^3/uL (4.4-10.8)
[2025-02-10 10:06] LABS: Magnesium 1.8 mg/dL (1.6-2.6)
[2025-02-10 10:43] LABS: ALT 91 U/L (10-49); AST 65 U/L (<34); Albumin 3.8 g/dL (3.4-5.0); Alkaline Phosphatase 150 U/L (46-116); Anion Gap 9.5 mmol/L (3-11); BUN 15 mg/dL (9-23); Bilirubin, Total 0.40 mg/dL (0.2-1.2); CO2 25.5 mmol/L (20.0-31.0); Calcium 8.9 mg/dL (8.3-10.6); Chloride 106 mmol/L (98-107); Glucose 104 mg/dL (74-106); Potassium 4.1 mmol/L (3.5-5.1); Sodium 141 mmol/L (136-145); Total Protein 7.0 g/dL (5.7-8.2)
[2025-02-11 09:21] LABS: Prealbumin 22 mg/dL (20-40)
[2025-02-17] MEDS: IRON SUCROSE COMPLEX 200 MG in Normal Saline 100 ML 440 MG IVPB (08:26)
[2025-02-17] MEDS: Normal Saline Flush 10 ML SYR IVP (08:26)
== END 2025-02-21 23:59 | disposition home or self-care (01) ==
LOC: INF 02:00
PROVIDERS: PCP Nurse Practitioner Family; Visit Provider Internal Medicine Gastroenterology
DX: K90.821 Short bowel syndrome with colon in continuity (principal); D50.9 Iron deficiency anemia, unspecified; Z45.2 Encounter for adjustment and management of vascular access device
CPT/HCPCS: 36592; 80053; 96365; 83735; 84100; 84134; 84478; 85025; J1756

== ENCOUNTER → 2025-03-11 11:08 | Outpatient (CLI) | payer MEDICARE, SELFPAY ==
--- NOTE | 2025-03-11 11:00 | DI.RAD_ITS ---
Exam(s) XR KNEE RT 4V AP,LAT,RAINA,PAT EXAM: XR KNEE RT 4V AP,LAT,RAINA,PAT CLINICAL HISTORY: M25.561 Right knee pain. TECHNIQUE: 2D digital imaging was performed of the right knee. Four views obtained. Merchant, AP, lateral and PA tunnel views were obtained. COMPARISON: There are no priors for comparison. FINDINGS: BONES: No acute fracture is present. No bony destructive lesion is seen. The bones are osteopenic. JOINTS: There is marked narrowing of the patellofemoral joint. There is moderate narrowing of the medial femoral tibial joint. There osteophytes in all 3 joint compartments. No joint effusion is seen. SOFT TISSUE: Normal. IMPRESSION: Marked osteoarthritis of the right knee. DATA REPOSITORY: RADIATION DOSE DELIVERED:
--- NOTE | 2025-03-11 11:00 | DI.US_ITS ---
Exam(s) US LOWER EXTREMITY VENOUS RT EXAM: US LOWER EXTREMITY VENOUS RT CLINICAL HISTORY: I82.461 Right calf pain and swelling TECHNIQUE: Right lower extremity venous ultrasound performed using grayscale, color-flow, and spectral Doppler analysis. COMPARISON: No exams were available for comparison FINDINGS: The right common femoral, femoral and popliteal veins demonstrate normal compressibility, augmentation, and color Doppler. The posterior tibial veins are patent. The saphenofemoral junction is unremarkable. There is no evidence of a Becerril cyst. The soft tissues are unremarkable. IMPRESSION: No evidence of a right lower extremity DVT. DATA REPOSITORY:
== END ==
LOC: DI 11:09
PROVIDERS: PCP Nurse Practitioner Family; Visit Provider Physician Assistant Medical
DX: M25.561 Pain in right knee (principal); I82.461 Acute embolism and thrombosis of right calf muscular vein
CPT/HCPCS: 73564; 93971